=== PATIENT | female | born 1935 | race Caucasian/White ===

== ENCOUNTER 2021-09-15 17:50 | Emergency (ER) | payer MEDICARE ==
--- OUTSIDE RECORDS SUMMARY | 2021-09-15 18:02 | XMS REPORT | Continuity of Care Document ---
:1935 Author Organization [facility] t Address [address] [place] [address] Care Team Providers Name Role Phone JUNITO Primary Care Physician Unavailable Doctor Unassigned, Name Attending Clinician Unavailable Baldo LOPEZ Attending Clinician Josue LUEVANO Attending Clinician Unavailable Singer LOPEZ Attending Clinician Rod LOPEZ Attending Clinician Kenna REYES, B Attending Clinician Cindy HUANG Attending Clinician Scott LUEVANO, A Attending Clinician Unavailable Only, Db Test Attending Clinician Unavailable Angeles STUDY ASSISTANT Attending Clinician ANGELES Attending Clinician Unavailable Pob, Lab Main Attending Clinician Unavailable Mallika Olson DO Attending Clinician Mallika OLSON Attending Clinician Unavailable Skinny-Cierrao_A_AH Attending Clinician Unavailable Vaughn MCGILL Attending Clinician Unavailable Reza Werner DO Attending Clinician Unknown Attending Clinician Unavailable Frankie LUNA Attending Clinician Unavailable Cory VALENTIN S Attending Clinician Frankie Luna MD Attending Clinician Ruben GONZALES Attending Clinician Unavailable Chris LUEVANO Attending Clinician Alondra CRISTINA R Attending Clinician Howard HUANG Attending Clinician Rod LOPEZ Admitting Clinician Cindy HUANG Admitting Clinician Skinny-Mbayo_A_AH Admitting Clinician Unavailable JONY ENG Admitting Clinician Unavailable Howard HUANG Admitting Clinician Payers Payer Name Policy Type Policy Number Effective Date Expiration Date S edelmira MANAGED MEDICARE [id number] 2020 HMO GENERIC 00:00:00 [place] [place] - [id number] 2019 2020 [place] 00:00:00 00:00:00 (MEDICARE REPLACEMENT/ADVAN TAGE - HMO) [employer] [place] [id number] 2019 2020 [place]US 00:00:00 00:00:00 CLASSIC/VALUE Problems Condition Condition Condition Status Onset Resolution Last Treating Co mments Source Name Details Category Date Date Treatment Clinician Date Acute Acute Disease Active Univers hypoxemic hypoxemic 9-16 [place] of respirator [place] failure y failure 00 Medi micky due to due to Branch COVID-19 COVID-19 Pneumonia Pneumonia Disease Active Uni vers due to due to 9-15 ity of COVID-19 COVID-19 00:00: [place] virus virus 00 Medical Branch COVID-19 COVID-19 Disease Active Unive rs 9-08 ity of 00:00: [place] 00 Medical Branch Multiple Multiple Problem Active Sandhu ge complicati Complicati 7-10 Fa jordana ons due to ons Due to 00:00: Pr actic type 2 Type 2 00 e diabetes Diabetes mellitus Mellitus Hyperchole Hyperchole Problem Active V illage sterolemia sterolemia 6-11 Fa jordana 00:00: Practic 00 e Restless Restless Problem Active [place]hu ge legs Legs 6-11 Family 00:00: Practic 00 e Hypertensi Hypertensi Problem Active [facility] ill[facility] ve ve 6-11 Family disorder Disorder 00:00: Practi c 00 e Atrial Atrial Problem Active Village fibrillati Fibrillati 6-11 Fa jordana on on 00:00: Practic 00 e Congestive Congestive Problem Active [facility] ill[place] heart Heart 6-11 Family failure Failure 00:00: Practic 00 e Gastroesop Gastroesop Problem Active V illage hageal hageal 6-11 Family reflux Reflux 00:00: Practic disease Disease 00 e without without esophagiti Esophagiti s s Fall Fall Disease Active 2019- Univers 2-17 ity of 00:00: [place] 00 Medical Branch Sepsis due Sepsis due Disease Active 2019 U nivers to urinary to urinary 03-11 it y of tract tract 00:00: [place] infection infection 00 [facility] Branch Fever in Fever in Disease Active Unive rs adult adult 03-10 ity of 00:00: [place] [facility] Chronic Chronic Disease Active 2019 Univers atrial atrial 4-24 ity of fibrillati fibrillati 00:[place] Essential Essential Disease Active Uni vers hypertensi hypertensi 4-24 it y of on on 00:00: [place] 00 Medical Branch Other Other Disease Active 2019 Univers hyperlipid hyperlipid 4-24 it y of emia emia 00:00: [place] [facility] 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 00 Medica l mellitus) mellitus) Bran ch Bronchitis Bronchitis Disease Active 2019- U nivers 4-24 ity of 00:00: [place] 00 Medical Branch Acute Acute Disease Active 2019- Univers exacerbati exacerbati 4-23 it y of on of CHF on of CHF 00:00: [place] (congestiv (congestiv 00 Me dical e heart e heart Branch failure) failure) Acute Acute Disease Active 2019 Univers exacerbati exacerbati 4-23 it y of on of CHF on of CHF 00:00: [place] s (congestiv (congestiv 00 Me dical e heart e heart Branch failure) failure) Heart Heart Disease Active 2019- Univers failure, failure, 4-23 ity of acute on acute on 00:00: [place] chronic, chronic, 00 Medica l systolic systolic Branch and and diastolic diastolic Cellulitis Cellulitis Disease Active 2018 U nivers of right of right 2-29 ity of leg leg 00:00: [place] 00 Medical Branch 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) Bran ch Hypotensio Hypotensio Disease Active U nivers n n 6-30 ity of 00:00: [place] 00 Medical Branch 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 5-15 it y of is is 00:00: [place] [facility] Pseudogout Pseudogout Disease Active U nivers 5-15 ity of 00:00: [place] 00 Medical Branch Delirium Delirium Disease Active Unive rs due to due to 5-15 ity of another another 00:00: [place] medical medical 00 Medical condition condition Bran ch Chronic Chronic Disease Active Univers combined combined 5-10 ity of systolic systolic 00:00: [place] and and 00 Medical diastolic diastolic Bran ch CHF, NYHA CHF, NYHA class 3 class 3 Paroxysmal Paroxysmal Disease Active U nivers atrial atrial 5-10 ity of fibrillati fibrillati 00:[place] Medical [place] Ventricula Ventricula Disease Active U nivers r r 5-10 ity of tachycardi tachycardi 00:[place] Arthritis Arthritis Disease Active Uni vers 5-10 ity of 00:00: [place] 00 Medical Branch Pulmonary Pulmonary Disease Active Uni vers edema edema 5-10 ity of cardiac cardiac 00:00: [place] cause cause 00 Medical Branch CHF CHF Disease Active Univers (congestiv (congestiv 5-08 it y of e heart e heart 00:00: [place] failure) failure) 00 Medica l Branch Fever Fever Disease Active Univers 5-05 ity of 00:00: [place] 00 Medical Branch Allergies, Adverse Reactions, Alerts Allergy Allergy Status Severity Reaction(s) Onset Inactive Treating Comm ents Source Name Type Date Date Clinician VANCOMYC DRUG Active Rash Univers IN INGREDI 2-05 ity of 00:00: [place] 00 Medical Branch Vancomyc Propensi Active Rash Univer s in ty to 2-05 ity of adverse 00:00: [place] reaction 00 Medical s Branch LEVOFLOX DRUG Active Rash Univers ACIN INGREDI 5-14 ity of 00:00: [place] 00 Medical Branch Levoflox Propensi Active Rash Univer s acin ty to 5-14 ity of adverse 00:00: [place] reaction Medical s Branch PENICILL Drug Active Swelling Univer s INS Class 6-13 ity of 00:00: [place] 00 Medical Branch Penicill Propensi Active Swelling Univ ers ins ty to 6-13 ity of adverse 00:00: [place] reaction 00 Medical s Branch ADHESIVE DRUG Active ITCHING Univers TAPE-TERESA 816 ity of ICONES 00:00: [place] [facility] CEPHALEX DRUG Active Swelling Univer s IN INGREDI 816 ity of 00:00: [place] [facility] Adhesive Propensi Active Itching Unive rs Tape-Teresa ty to 816 ity of icones adverse 00:00: [place] reaction Medical s Branch Cephalex Propensi Active Swelling Univ ers in ty to 816 ity of adverse 00:00: [place] reaction 00 Medical s Branch Keflex Allergy Active Moderate Facial Village to to severe swelling Famil y substanc Practic e e Levoflox Allergy Active Moderate Hives Sandhu ge acin to to severe Family substanc Practic e e PENICILL Allergy Active Moderate Hives Sandhu ge INS to to severe Family substanc Practic e e Social History Social Habit Start Date Stop Date Quantity Comments Source Exposure to Not sure University of SARS-CoV-2 (event) [place] [facility] Alcohol intake 2021-03-23 2021-03-23 Current University of 00:00:00 00:00:00 non-drinker of [facility] alcohol Branch (finding) Tobacco Comment 2021-03-16 2021-03-16 Quit in 1995 Univers ity of 00:00:00 00:00:00 [place] [facility] History [facility] 2019-03-11 2019-03-11 5 University o f Financial 00:00:00 00:00:00 [place] [facility] History [facility] Food 2019-03-11 2019-03-11 1 Univers ity of Worry 00:00:00 00:00:00 [place] [facility] History [facility] Food 2019-03-11 2019-03-11 1 Univers ity of Scarcity 00:00:00 00:00:00 [place] [facility] History [facility] 2019-03-11 2019-03-11 2 University o f Transport Med 00:00:00 00:00:00 [place] Medic al Branch History SDND 2019-03-11 2019-03-11 2 University o f Transport Non-Med 00:00:00 00:00:00 [place] M edical Branch Cigarettes smoked 2017-11-10 2017-11-10 Univers ity of current (pack per 00:00:00 00:00:00 [facility] ) - Reported Branch Cigarette 2017-11-10 2017-11-10 University of pack-years 00:00:00 00:00:00 [facility] Tobacco use and 2017-11-10 2017-11-10 Never used Universit y of exposure 00:00:00 00:00:00 [facility] Sex [birth year] At [birth year] Universit y of 00:00:00 00:00:00 [facility] Smoking Status Start Date Stop Date Source Former Smoker [place] Family P kevin Medications Ordered Filled Start Stop Current Ordering Indication Dosage Frequency Signature Comments Components Source Medication Medication Date Date Medication? Clinician (SIG) Name Name HYDROcodone 2020- No 1{tbl} 1 tablet, Univers -acetaminop 04-06 Oral, ity of hen (NORCO 15:15: 14:11 ONCE, 1 Maulik as 5) 5-325 mg 00 :00 dose, On Medi micky tablet 1 Sun Branch tablet 04/06/21 at 1015, SELINA bumetanide 2020- No [id number] 1mg Take 1 Univers 1 mg tablet 03-30 [id number] tablet by ity of 00:00: 04:59 mouth [place] 00 :00 daily for Medical 30 days. Branch bumetanide 2020- No [id number] 1mg Take 1 Univers 1 mg tablet 03-30 [id number] tablet by ity of 00:00: 04:59 mouth [place] 00 :00 daily for Medical 30 days. Branch bumetanide 2020- No [id number] 1mg Take 1 Univers 1 mg tablet 03-30 [id number] tablet by ity of 00:00: 04:59 mouth [place] 00 :00 daily for Medical 30 days. Branch bumetanide 2020- No [id number] 1mg Take 1 Univers 1 mg tablet 03-30 [id number] tablet by ity of 00:00: 04:59 mouth [place] 00 :00 daily for Medical 30 days. Branch bumetanide 2020- No [id number] 1mg Take 1 Univers 1 mg tablet 03-30 [id number] tablet by ity of 00:00: 04:59 mouth [place] 00 :00 daily for Medical 30 days. Branch bumetanide 2020- No [id number] 1mg Take 1 Univers 1 mg tablet 03-30 [id number] tablet by ity of 00:00: 04:59 mouth [place] 00 :00 daily for Medical 30 days. Branch ascorbic 0 Yes 500mg Take 500 Univ ers acid, 9-21 mg by ity of vitamin C, 14:49: mouth [place] (VITAMIN C) 01 daily. Medica l 500 mg Branch tablet SITagliptin Yes 100mg Take 100 U nivers (JANUVIA) 9-21 mg by ity of 100 mg 14:49: mouth [place] tablet 01 daily. Medical Branch ascorbic Yes 500mg Take 500 Univ ers acid, 9-21 mg by ity of vitamin C, 14:49: mouth [place] (VITAMIN C) 01 daily. Medica l 500 mg Branch tablet SITagliptin Yes 100mg Take 100 U nivers (JANUVIA) 9-21 mg by ity of 100 mg 14:49: mouth [place] tablet 01 daily. Medical Branch ascorbic 0 Yes 500mg Take 500 Univ ers acid, 9-21 mg by ity of vitamin C, 14:49: mouth [place] (VITAMIN C) 01 daily. Medica l 500 mg Branch tablet SITagliptin Yes 100mg Take 100 U nivers (JANUVIA) 9-21 mg by ity of 100 mg 14:49: mouth [place] tablet 01 daily. Medical Branch ascorbic 0 Yes 500mg Take 500 Univ ers acid, 9-21 mg by ity of vitamin C, 14:49: mouth [place] (VITAMIN C) 01 daily. Medica l 500 mg Branch tablet SITagliptin 0 Yes 100mg Take 100 U nivers (JANUVIA) 9-21 mg by ity of 100 mg 14:49: mouth [place] tablet 01 daily. Medical Branch ascorbic 0 Yes 500mg Take 500 Univ ers acid, 9-21 mg by ity of vitamin C, 14:49: mouth [place] (VITAMIN C) 01 daily. Medica l 500 mg Branch tablet SITagliptin 0 Yes 100mg Take 100 U nivers (JANUVIA) 9-21 mg by ity of 100 mg 14:49: mouth [place] tablet 01 daily. Medical Branch ascorbic Yes 500mg Take 500 Univ ers acid, 9-21 mg by ity of vitamin C, 14:49: mouth [place] (VITAMIN C) 01 daily. Medica l 500 mg Branch tablet SITagliptin Yes 100mg Take 100 U nivers (JANUVIA) 9-21 mg by ity of 100 mg 14:49: mouth [place] tablet 01 daily. Medical Branch bumetanide Yes 1mg 1 mg, Univer s (BUMEX) 03-29 Oral, ity of tablet 1 mg 14:00: DAILY, [place] 00 [place] dose Medical on [facility] 03/29/21 at 0900, Until Discontinu ed, Routine bumetanide Yes 1mg 1 mg, Univer s (BUMEX) 03-29 Oral, ity of tablet 1 mg 14:00: DAILY, [facility] First [facility] Medical on [facility] 03/29/21 at 0900, Until Discontinu ed, Routine furosemide 2020- No 40mg Take 40 mg Univers (LASIX) 40 03-29 by mouth ity of mg tablet 12:56: 00:00 daily. [place] 46 :00 [facility] Branch amLODIPine 2020- No 5mg Take 5 mg U nivers 5 mg tablet 03-29 by mouth ity of 12:56: 00:00 daily. [place] 46 :00 [facility] Branch furosemide 2020- No 40mg Take 40 mg Univers (LASIX) 40 03-29 by mouth ity of mg tablet 12:56: 00:00 daily. [place] 46 :00 [facility] Branch amLODIPine 2020- No 5mg Take 5 mg U nivers 5 mg tablet 03-29 by mouth ity of 12:56: 00:00 daily. [place] 46 :00 [facility] Branch albuterol-i 2020- No [id number] 1{puff} Inhale 1 Univers pratropium 03-29 10- [id number] Puff every ity of 20-100 00:00: 04:59 6 (six) [place] mcg/actuati 00 :00 hours for Med ical on inhaler 30 days. Branc h benzonatate 2020- No [id number] 100mg Take 1 Univers 100 mg 9-21 - [id number] capsule by ity of capsule 00:00: 04:59 mouth 3 [place] 00 :00 (three) Medical times Branch daily as needed for Cough for up to 30 days. albuterol-i 2020- No [id number] 1{puff} Inhale 1 Univers pratropium 9-21 - [id number] Puff every ity of 20-100 00:00: 04:59 6 (six) [place] mcg/actuati 00 :00 hours for Med ical on inhaler 30 days. Branc h benzonatate 2020- No [id number] 100mg Take 1 Univers 100 mg -04-29 [id number] capsule by ity of capsule 00:00: 04:59 mouth 3 [place] 00 :00 (three) Medical times Branch daily as needed for Cough for up to 30 days. albuterol-i 2020- No [id number] 1{puff} Inhale 1 Univers pratropium 9-21 - [id number] Puff every ity of 20-100 00:00: 04:59 6 (six) [place] mcg/actuati 00 :00 hours for Med ical on inhaler 30 days. Branc h benzonatate 2020- No [id number] 100mg Take 1 Univers 100 mg -04-29 [id number] capsule by ity of capsule 00:00: 04:59 mouth 3 [place] 00 :00 (three) Medical times Branch daily as needed for Cough for up to 30 days. albuterol-i 2020- No [id number] 1{puff} Inhale 1 Univers pratropium 9-21 - [id number] Puff every ity of 20-100 00:00: 04:59 6 (six) [place] mcg/actuati 00 :00 hours for Med ical on inhaler 30 days. Branc h benzonatate 2020- No [id number] 100mg Take 1 Univers 100 mg 9-21 - [id number] capsule by ity of capsule 00:00: 04:59 mouth 3 [place] 00 :00 (three) Medical times Branch daily as needed for Cough for up to 30 days. albuterol-i 2020- No [id number] 1{puff} Inhale 1 Univers pratropium 03-29 [id number] Puff every ity of 20-100 00:00: 04:59 6 (six) [place] mcg/actuati 00 :00 hours for Med ical on inhaler 30 days. Branc h benzonatate 2020- No [id number] 100mg Take 1 Univers 100 mg 03-29 [id number] capsule by ity of capsule 00:00: 04:59 mouth 3 [place] 00 :00 (three) Medical times Branch daily as needed for Cough for up to 30 days. albuterol-i 2020- No [id number] 1{puff} Inhale 1 Univers pratropium 03-29 [id number] Puff every ity of 20-100 00:00: 04:59 6 (six) [place] mcg/actuati 00 :00 hours for Med ical on inhaler 30 days. Branc h benzonatate 2020- No [id number] 100mg Take 1 Univers 100 mg 03-29 [id number] capsule by ity of capsule 00:00: 04:59 mouth 3 [place] 00 :00 (three) Medical times Branch daily as needed for Cough for up to 30 days. diphenhydrA 2020- No [id number] 25mg Take 1 Univers MINE 25 mg 03-29 [id number] tablet by ity of tablet 00:00: 04:59 mouth [place] 00 :00 every 4 Medical (four) Branch hours as needed for Itching for up to 7 days. diphenhydrA 2020- No [id number] 25mg Take 1 Univers MINE 25 mg 03-29 [id number] tablet by ity of tablet 00:00: 04:59 mouth [place] 00 :00 every 4 Medical (four) Branch hours as needed for Itching for up to 7 days. diphenhydrA 2020- No [id number] 25mg Take 1 Univers MINE 25 mg 03-29 [id number] tablet by ity of tablet 00:00: 04:59 mouth [place] 00 :00 every 4 Medical (four) Branch hours as needed for Itching for up to 7 days. diphenhydrA 2020- No [id number] 25mg Take 1 Univers MINE 25 mg 03-29 [id number] tablet by ity of tablet 00:00: 04:59 mouth [place] 00 :00 every 4 Medical (four) Branch hours as needed for Itching for up to 7 days. fludrocorti 2020- No .2mg 0.2 mg, Un adali sone 03-28 Oral, ONCE ity of (FLORINEF) 16:15: 15:45 NOW, 1 [place] tablet 0.2 00 :00 dose, On Medic al mg [facility] 03/28/21 at 1115, Routine fludrocorti 2020- No .2mg 0.2 mg, Un adali sone 03-28 Oral, ONCE ity of (FLORINEF) 16:15: 15:45 NOW, 1 [place] tablet 0.2 00 :00 dose, On Medic al mg [facility] 03/28/21 at 1115, Routine sodium 2020- No 1g 1 g, Oral, Univ ers chloride 03-28 QID, 4 ity of tablet 1 g 15:30: 12:54 doses, [place] 00 :00 First dose Medical on [facility] 03/28/21 at 1030, Last dose on [facility] 03/28/21 at 1999, Routine sodium 2020- No 1g 1 g, Oral, Univ ers chloride 03-28 QID, 4 ity of tablet 1 g 15:30: 12:54 doses, [place] 00 :00 First dose Medical on [facility] 03/28/21 at 1030, Last dose on [facility] 03/28/21 at 1999, Routine NaCl 0.9% No 500mL at 50 Unive rs (NS) IV 03-27 mL/hr, IV ity of infusion 17:30: 16:47 Infusion, [place]ik as 500 mL 00 :00 ONCE, 1 Medical dose, On Branch [place] 03/27/21 at 1230, Routine NaCl 0.9% 2020- No 500mL at 50 Unive rs (NS) IV 03-27 09-19 mL/hr, IV ity of infusion 17:30: 16:47 Infusion, [place]ulik as 500 mL 00 :00 ONCE, 1 Medical dose, On [facility] 03/27/21 at 1230, Routine albuterol-i Yes 1{puff} 1 Puff, Univers pratropium 9-17 Inhalation ity of (COMBIVENT 17:00: , Q6H, [place] RESPIMAT) 00 First dose Medi micky 20-100 on [place] mcg/actuati 03/25/21 at on inhaler 1200, 1 Puff Until Discontinu ed, Routine
Is this order for a patient with suspected or confirmed COVID-19 infection? Yes albuterol-i 2020-0 Yes 1{puff} 1 Puff, Univers pratropium 9-17 Inhalation ity of (COMBIVENT 17:00: , Q6H, [place] RESPIMAT) 00 First dose Medi micky 20-100 on [place] mcg/actuati 03/25/21 at on inhaler 1200, 1 Puff Until Discontinu ed, Routine
Is this order for a patient with suspected or confirmed COVID-19 infection? Yes codeine-gua 0 Yes 10mL 10 mL, Univ ers ifenesin -17 Oral, ity of (ROBITUSSIN 15:38: Q6HPRN, Maulik as AC) 10-100 24 Starting Medic al mg/5 mL on [place] oral 03/25/21 at solution 10 1038, mL Until Discontinu ed, Routine, Cough codeine-gua 2020-0 Yes 10mL 10 mL, Univ ers ifenesin 9-17 Oral, ity of (ROBITUSSIN 15:38: Q6HPRN, Maulik as AC) 10-100 24 Starting Medic al mg/5 mL on [place] oral 03/25/21 at solution 10 1038, mL Until Discontinu ed, Routine, Cough digoxin 2020-0 Yes 125ug 125 mcg, Unive rs (LANOXIN) 03-25 Oral, ity of tablet 125 14:00: QMON/WEDS/ [place] mcg Sun, First Medical dose on Branch Sun03/25/21 at 0900, Until Discontinu ed, Routine digoxin 2020-0 Yes 125ug 125 mcg, Unive rs (LANOXIN) 03-25 Oral, ity of tablet 125 14:00: QM// [place] mcg Sun, First Medical dose on Branch Sun03/25/21 at 0900, Until Discontinu ed, Routine diphenhydrA 2020-0 Yes 25mg 25 mg, Univ ers MINE 03-24 Oral, ity of (BENADRYL) 21:00: Q4HPRN, [place] tablet 25 12 Starting Medica l mg on [facility] 03/24/21 at 1600, Until Discontinu ed, Routine, Itching diphenhydrA 2020-0 Yes 25mg 25 mg, Univ ers MINE 03-24 Oral, ity of (BENADRYL) 21:00: Q4HPRN, [place] tablet 25 12 Starting Medica l mg on [facility] 03/24/21 at 1600, Until Discontinu ed, Routine, Itching SITagliptin 2020-0 Yes 100mg 100 mg, Un adali (JANUVIA) 03-24 Oral, ity of tablet 100 14:00: DAILY, [place] mg 00 First dose Medical on [facility] 03/24/21 at 0900, Until Discontinu ed, Routine omeprazole 2020-0 Yes 40mg 40 mg, Unive rs (PRILOSEC) 03-24 Oral, ity of capsule 40 14:00: DAILY, [place] mg 00 First dose Medical on [facility] 03/24/21 at 0900, Until Discontinu ed ascorbic 2020-0 Yes 500mg 500 mg, Unive rs acid 03-24 Oral, ity of (vitamin C) 14:00: DAILY, [place] (VITAMIN C) 00 First dose Me dical tablet 500 on [facility] mg 03/24/21 at 0900, Until Discontinu ed, Routine SITagliptin 2020-0 Yes 100mg 100 mg, Un adali (JANUVIA) 03-24 Oral, ity of tablet 100 14:00: DAILY, [place] mg 00 First dose Medical on [facility] 03/24/21 at 0900, Until Discontinu ed, Routine omeprazole 2020-0 Yes 40mg 40 mg, Unive rs (PRILOSEC) 9-16 Oral, ity of capsule 40 14:00: DAILY, [place] mg 00 First dose Medical on [facility] 03/24/21 at 0900, Until Discontinu ed ascorbic 2020-0 Yes 500mg 500 mg, Unive rs acid 03-24 Oral, ity of (vitamin C) 14:00: [place]ILY, [place] (VITAMIN C) 00 First dose Me dical tablet 500 on [facility] 03/24/21 at 0900, Until Discontinu ed, Routine amLODIPine 2020- No 5mg 5 mg, Unive rs (NORVASC) 03-24 Oral, ity of tablet 5 mg 14:00: 15:14 DAILY, [place] as 00 :12 First dose Medical on [facility] 03/24/21 at 0900, Until Discontinu ed, Routine amLODIPine 2020- No 5mg 5 mg, Unive rs (NORVASC) 03-24 Oral, ity of tablet 5 mg 14:00: 15:14 DAILY, [place] as 00 :12 First dose Medical on [facility] 03/24/21 at 0900, Until Discontinu ed, Routine gabapentin 0 Yes 300mg 300 mg, Uni vers (NEURONTIN) 9-16 Oral, QHS, it y of capsule 300 02:00: First dose [place] mg 00 on [facility] 03/23/21 at Branch 2100, Until Discontinu ed, Routine atorvastati 0 Yes 40mg 40 mg, Univ ers n (LIPITOR) 9-16 Oral, QHS, it y of tablet 40 02:00: First dose [place] mg 00 on [facility] 03/23/21 at Branch 2100, Until Discontinu ed, Routine gabapentin 2020-0 Yes 300mg 300 mg, Uni vers (NEURONTIN) 9-16 Oral, QHS, it y of capsule 300 02:00: First dose [place] mg 00 on [facility] 03/23/21 at Branch 2100, Until Discontinu ed, Routine atorvastati 2020-0 Yes 40mg 40 mg, Univ ers n (LIPITOR) 9-16 Oral, QHS, it y of tablet 40 02:00: First dose [place] mg 00 on [facility] 03/23/21 at Branch 2100, Until Discontinu ed, Routine pramipexole 2021-0 Yes 1mg 1 mg, Unive rs (MIRAPEX) 9-16 Oral, TID, ity of tablet 1 mg 01:00: First dose on Sun [facility] 03/23/21 at [place] [id number], Until Discontinu ed
Facu lty member approving Restricted medication : JAD GAVIN apixaban 2021-0 Yes 5mg 5 mg, Univers (ELIQUIS) 9-16 Oral, BID, ity of tablet 5 mg 01:00: First dose on Sun [facility] 03/23/21 at [place] 2000, Until Discontinu ed, Routine pramipexole 1-0 Yes 1mg 1 mg, Unive rs (MIRAPEX) 9-16 Oral, TID, ity of tablet 1 mg 01:00: First dose on Sun03/23/21 at [place] 1999, Until Discontinu ed
Facu lty member approving Restricted medication : JAD GAVIN apixaban 1-0 Yes 5mg 5 mg, Univers (ELIQUIS) 9-16 Oral, BID, ity of tablet 5 mg 01:00: First dose on Sun [facility] 03/23/21 at [place] 1999, Until Discontinu ed, Routine benzonatate 2021-0 Yes 100mg 100 mg, Un adali (TESSALON 9-15 Oral, Q6H, ity of PERLES) 23:00: [place] capsule 100 00 on Sun Medica l mg 03/23/21 at Branch 1800, Until Discontinu ed, Routine benzonatate 2021-0 Yes 100mg 100 mg, Un adali (TESSALON 9-15 Oral, Q6H, ity of PERLES) 23:00: First dose [place] capsule 100 00 on [place] Medica l mg 03/23/21 at Branch 1800, Until Discontinu ed, Routine carvediloL 2021-0 Yes 25mg 25 mg, Unive rs (COREG) 9-15 Oral, BID ity of tablet 25 22:00: MEALS, [place] mg 00 First dose Medical on [place] 03/23/21 at 1700, Until Discontinu ed, Routine carvediloL 2021-0 Yes 25mg 25 mg, Unive rs (COREG) 9-15 Oral, BID ity of tablet 25 22:00: MEALS, [place] mg 00 First dose Medical on Sun Branch 03/23/21 at 1700, Until Discontinu ed, Routine Sliding Yes Subcutaneo Univ ers Scale 9-15 us, AC+HS, ity of Insulin-Reg 21:30: First dose [place] ular + Fsbg 00 on Sun Medica l Testing 03/23/21 at Branch 1630, Until Discontinu ed, Routine Sliding Yes Subcutaneo Univ ers Scale 9-15 us, AC+HS, ity of Insulin-Reg 21:30: First dose [place] ular + Fsbg 00 on Sun Medica l Testing 03/23/21 at Branch 1630, Until Discontinu ed, Routine glucagon 0 Yes 1mg 1 mg, Univers (GLUCAGEN 9-15 Intramuscu ity of DIAGNOSTIC 19:48: [place], [place] KIT) 01 Starting Medical injection 1 on Sun Branch mg 03/23/21 at 1448, Until Discontinu ed, SELINA, Blood Glucose < or = 70 mg/dL and patient is unable to swallow or has mental changes. dextrose 50 0 Yes 25mL 25 mL, Univ ers % in water 9-15 Slow IV ity of (D50W) 19:48: Push, PRN, [place] injection 01 Starting Medica l 25 mL on Sun Branch 03/23/21 at 1448, Until Discontinu ed, SELINA, Blood Glucose < or = 70 mg/dL and patient is unable to swallow or has mental status changes. glucagon Yes 1mg 1 mg, Univers (GLUCAGEN 9-15 Intramuscu ity of DIAGNOSTIC 19:48: [place], [place] KIT) 01 Starting Medical injection 1 on Sun Branch mg 03/23/21 at 1448, Until Discontinu ed, SELINA, Blood Glucose < or = 70 mg/dL and patient is unable to swallow or has mental changes. dextrose 50 0 Yes 25mL 25 mL, Univ ers % in water 9-15 Slow IV ity of (D50W) 19:48: Push, PRN, [place] injection 01 Starting Medica l 25 mL on Wed Branch 03/23/21 at 1448, Until Discontinu ed, SELINA, Blood Glucose < or = 70 mg/dL and patient is unable to swallow or has mental status changes. iopamidol 2020- No [id number] 100mL 100 mL, Univers (ISOVUE 03-23 [id number] Intravenou it y of 370-500 mL) 17:00: 15:48 s, ONCE, 1 [place] injection 00 :00 dose, On Medica l 100 mL Wed Branch 03/23/21 at 1200, Routine iopamidol 2020- No [id number] 100mL 100 mL, Univers (ISOVUE 03-23 [id number] Intravenou it y of 370-500 mL) 17:00: 15:48 s, ONCE, 1 [place] injection 00 :00 dose, On Medica l 100 mL Wed Branch 03/23/21 at 1200, Routine bumetanide 2020- No 1.25mg 1.25 mg, Univers (BUMEX) 03-23 Slow IV ity of injection 16:30: 15:14 Push, [place] 1.25 mg 00 :12 Q24H, Medical First dose Branch on 03/23/21 at 1130, Until Discontinu ed, Routine bumetanide 2020- No 1.25mg 1.25 mg, Univers (BUMEX) 03-23 Slow IV ity of injection 16:30: 15:14 Push, [place] 1.25 mg 00 :12 Q24H, Medical First dose Branch on 03/23/21 at 1130, Until Discontinu ed, Routine insulin 2020- No 16U inject 16 Univ ers degludec 03-2315 Units ity of (TRESIBA 15:06: 00:00 under the [place] as FLEXTOUCH 03 :00 skin. Medical U-100) 100 Branch unit/mL (3 mL) InPn insulin 2020- No 16U inject 16 Univ ers degludec 03-23-15 Units ity of (TRESIBA 15:06: 00:00 under the [place] as FLEXTOUCH 03 :00 skin. Medical U-100) 100 Branch unit/mL (3 mL) InPn digoxin Yes 125ug 125 mcg, Unive rs (LANOXIN) 9-10 Oral, ity of tablet 125 14:00: QMON/WEDS/ [place] mcg Sun, First Medical dose on Branch Sun03/18/21 at 0900, Until Discontinu ed, Routine digoxin Yes 125ug 125 mcg, Unive rs (LANOXIN) 03-18 Oral, ity of tablet 125 14:00: QMON/WEDS/ [place] mcg Sun, First Medical dose on Branch Sun03/18/21 at 0900, Until Discontinu ed, Routine dexamethaso 2020- No 6mg 6 mg, IV U nivers ne 03-18 Piggyback, ity of (DECADRON 14:00: 13:59 DAILY, 5 [place] PHOSPHATE) 00 :00 doses, Medical 6 mg in First dose Branch NaCl 0.9% (after (NS) 50 mL last piggyback modificati on) on Sun03/18/21 at 0900, Last dose on Sun03/22/21 at 0900, Administer over 20 Minutes, 50 mL dexamethaso 2020- No 6mg 6 mg, IV U nivers ne 03-18 Piggyback, ity of (DECADRON 14:00: 13:59 DAILY, 5 [place] PHOSPHATE) 00 :00 doses, Medical 6 mg in First dose Branch NaCl 0.9% (after (NS) 50 mL last piggyback modificati on) on Sun03/18/21 at 0900, Last dose on Sun03/22/21 at 0900, Administer over 20 Minutes, 50 mL insulin Yes .3U/kg/ 29 Units Uni vers glargine 9- d (rounded ity of (LANTUS 02:00: from 28.8 [place] U-100) 00 Units = Medical injection 0.3 Branch 29 Units Units/kg/d ay ?96 kg), Subcutaneo us, Q, First dose (after last modificati on) on Sun03/17/21 at 2100, Until Discontinu ed, Routine insulin 0 Yes .3U/kg/ 29 Units Uni vers glargine 9- d (rounded ity of (LANTUS 02:00: from 28.8 [place] U-100) 00 Units = Medical injection 0.3 Branch 29 Units Units/kg/d ay ?96 kg), Subcutaneo us, QHS, First dose (after last modificati on) on [place] 03/17/21 at 2100, Until Discontinu ed, Routine ascorbic 0 Yes 500mg Take 500 Univ ers acid, 9-10 mg by ity of vitamin C, 00:03: mouth [place] (VITAMIN C) 37 daily. Medica l 500 mg Branch tablet insulin 0 Yes 16U inject 16 Unive rs degludec 9-10 Units ity of (TRESIBA 00:03: [place] FLEXTOUCH 37 skin. Medical U-100) 100 Branch unit/mL (3 mL) InPn SITagliptin Yes 100mg Take 100 U nivers (JANUVIA) 9-10 mg by ity of 100 mg 00:03: mouth [place] tablet 37 daily. Medical Branch furosemide 0 Yes 40mg Take 40 mg U nivers (LASIX) 40 9-10 by mouth ity o f mg tablet 00:03: daily. [place] [address] Medical Branch amLODIPine 0 Yes 5mg Take 5 mg Un adali 5 mg tablet 9-10 by mouth ity of 00:03: daily. [place] [address] Medical Branch ascorbic 0 Yes 500mg Take 500 Univ ers acid, 9-10 mg by ity of vitamin C, 00:03: mouth [place] (VITAMIN C) 37 daily. Medica l 500 mg Branch tablet insulin 0 Yes 16U inject 16 Unive rs degludec 9-10 Units ity of (TRESIBA 00:03: [place] FLEXTOUCH 37 skin. Medical U-100) 100 Branch unit/mL (3 mL) InPn SITagliptin Yes 100mg Take 100 U nivers (JANUVIA) 9-10 mg by ity of 100 mg 00:03: mouth [place] tablet 37 daily. Medical Branch furosemide 0 Yes 40mg Take 40 mg U nivers (LASIX) 40 9-10 by mouth ity o f mg tablet 00:03: daily. [place] [address] Medical Branch amLODIPine 2020-0 Yes 5mg Take 5 mg Un adali 5 mg tablet 9-10 by mouth ity of 00:03: daily. [place] [address] Medical Branch ascorbic 2021-0 Yes 500mg Take 500 Univ ers acid, 9-10 mg by ity of vitamin C, 00:03: mouth [place] (VITAMIN C) 37 daily. Medica l 500 mg Branch tablet insulin 0 Yes 16U inject 16 Unive rs degludec 9-10 Units ity of (TRESIBA 00:03: [facility] skin. Medical U-100) 100 Branch unit/mL (3 mL) InPn SITagliptin Yes 100mg Take 100 U nivers (JANUVIA) 9-10 mg by ity of 100 mg 00:03: mouth [place] tablet 37 daily. Medical Branch furosemide Yes 40mg Take 40 mg U nivers (LASIX) 40 9-10 by mouth ity o f mg tablet 00:03: daily. [place] [address] Medical Branch amLODIPine Yes 5mg Take 5 mg Un adali 5 mg tablet 9-10 by mouth ity of 00:03: daily. [place] [address] Medical Branch ascorbic Yes 500mg Take 500 Univ ers acid, 9-10 mg by ity of vitamin C, 00:03: mouth [place] (VITAMIN C) 37 daily. Medica l 500 mg Branch tablet insulin Yes 16U inject 16 Unive rs degludec 9-10 Units ity of (TRESIBA 00:03: [facility] FLEXT[facility]CH 37 skin. Medical U-100) 100 Branch unit/mL (3 mL) InPn SITagliptin Yes 100mg Take 100 U nivers (JANUVIA) 9-10 mg by ity of 100 mg 00:03: mouth [place] tablet 37 daily. Medical Branch furosemide Yes 40mg Take 40 mg U nivers (LASIX) 40 9-10 by mouth ity o f mg tablet 00:03: daily. [place] [address] Medical Branch amLODIPine 0 Yes 5mg Take 5 mg Un adali 5 mg tablet 9-10 by mouth ity of 00:03: daily. [place] [address] Medical Branch sulfur 202- No [id number] 5mL 5 mL, Univ ers hexafluorid 03-17 Intravenou i ty of e microsphr 21:45: 19:50 s, ONCE, 1 [place] (LUMASON) 00 :00 dose, [place] Medic al injection 5 03/17/[address] [facility] mL 1645, Routine
team member approving Restricted medication : ZEKE ARELLANO sulfur 2020- No [id number] 5mL 5 mL, [facility] ers hexafluorid 03-17 Intravenou i ty of e microsphr 21:45: 19:50 s, ONCE, 1 [place] (LUMASON) 00 :00 dose, [place] Medic al injection 5 03/17/[address] [facility] mL 1645, Routine
team member approving Restricted medication : ZEKE ARELLANO remdesivir 2020- No 100mg 100 mg, IV Univers 100 mg in 03-17 Infusion, ity of NaCl 0.9% 21:00: 20:59 DAILY AT [facility] as (NS) 100 mL 00 :00 1600, 4 Medic al MINI-BAG doses, Branch First dose on [place] 03/17/21 at 1600, Last dose on Sun03/20/21 at 1600, Administer over 60 Minutes, 100 mL
Is the patient mechanical ly ventilated ? NO
I s the patient requiring supplement al oxygen? YES remdesivir 2020- No 100mg 100 mg, IV Univers 100 mg in 03-17 Infusion, ity of NaCl 0.9% 21:00: 20:59 DAILY AT [facility] as (NS) 100 mL 00 :00 1600, 4 Medic al MINI-BAG doses, Branch First dose on [place] 03/17/21 at 1600, Last dose on 03/20/21 at 1600, Administer over 60 Minutes, 100 mL
Is the patient mechanical ly ventilated ? NO
I s the patient requiring supplement al oxygen? YES benzonatate Yes 100mg 100 mg, Un adali (TESSALON 9-09 Oral, Q6H, ity of PERLES) 17:00: [place] capsule 100 00 (after Medica l mg last Branch modificati on) on [place] 03/17/21 at 1200, Until Discontinu ed, Routine benzonatate Yes 100mg 100 mg, Un adali (TESSALON 9-09 Oral, Q6H, ity of PERLES) 17:00: First [place] capsule 100 00 (after Medica l mg last Branch modificati on) on [place] 03/17/21 at 1200, Until Discontinu ed, Routine omeprazole 2020-0 Yes 40mg 40 mg, Unive rs (PRILOSEC) 03-17 Oral, ity of capsule 40 14:00: DAILY, [place] mg 00 First dose Medical on [facility] Branch 03/17/21 at 0900, Until Discontinu ed, Routine amLODIPine 0 Yes 5mg 5 mg, Univer s (NORVASC) 03-17 Oral, ity of tablet 5 mg 14:00: DAILY, [place] 00 First dose Medical on [facility] Branch 03/17/21 at 0900, Until Discontinu ed, Routine omeprazole Yes 40mg 40 mg, Unive rs (PRILOSEC) 03-17 Oral, ity of capsule 40 14:00: DAILY, [place] mg 00 First dose Medical on [facility] Branch 03/17/21 at 0900, Until Discontinu ed, Routine amLODIPine Yes 5mg 5 mg, Univer s (NORVASC) 03-17 Oral, ity of tablet 5 mg 14:00: DAILY, [place] 00 First dose Medical on [facility] Branch 03/17/21 at 0900, Until Discontinu ed, Routine Sliding Yes Subcutaneo Univ ers Scale 03-17 us, TID ity of Insulin - 02:00: MEALS+HS, [place] Lispro 00 First dose Medical (HumaLOG) + on Sun Branch Fsbg 03/16/21 at Testing 2100, Until Discontinu ed, Routine gabapentin 0 Yes 300mg 300 mg, Uni vers (NEURONTIN) 03-17 Oral, QHS, it y of capsule 300 02:00: First dose [place] mg 00 on Sun Medical 03/16/21 at Branch 2100, Until Discontinu ed, Routine atorvastati 2020-0 Yes 40mg 40 mg, Univ ers n (LIPITOR) 03-17 Oral, QHS, it y of tablet 40 02:00: First [place] mg 00 on Sun Medical 03/16/21 at Branch 2100, Until Discontinu ed, Routine Sliding 2020-0 Yes Subcutaneo Univ ers Scale 03-17 us, TID ity of Insulin - 02:00: MEALS+HS, [place] Lispro 00 First dose Medical (HumaLOG) + on Sun Fsbg 03/16/21 at Testing 2100, Until Discontinu ed, Routine gabapentin Yes 300mg 300 mg, Uni vers (NEURONTIN) 03-17 Oral, QHS, it y of capsule 300 02:00: First dose [place] mg 00 on Sun Medical 03/16/21 at Branch 2100, Until Discontinu ed, Routine atorvastati Yes 40mg 40 mg, Univ ers n (LIPITOR) 03-17 Oral, QHS, it y of tablet 40 02:00: First [place] mg 00 on Sun Medical 03/16/21 at Branch 2100, Until Discontinu ed, Routine insulin 202- No .25U/kg 24 Units Un adali glargine 03-17 /d (0.25 ity of (LANTUS 02:00: 07:06 Units/kg/d [place] U-100) 00 :55 ay ?96 Medical injection kg), Branch 24 Units Subcutaneo us, QHS, First dose on Sun03/16/21 at 2100, Until Discontinu ed, Routine insulin 2020- No .25U/kg 24 Units Un adali glargine 03-17 /d (0.25 ity of (LANTUS 02:00: 07:06 Units/kg/d [place] U-100) 00 :55 ay ?96 Medical injection kg), Branch 24 Units Subcutaneo us, QHS, First dose on Sun03/16/21 at 2100, Until Discontinu ed, Routine apixaban Yes 5mg 5 mg, Univers (ELIQUIS) 03-17 Oral, BID, ity of tablet 5 mg 01:00: First dose [place] 00 on Sun [facility] 03/16/21 at Branch 2000, Until Discontinu ed, Routine apixaban 0 Yes 5mg 5 mg, Univers (ELIQUIS) 03-17 Oral, BID, ity of tablet 5 mg 01:00: First dose [place] 00 on Sun Medical 03/16/21 at Branch 2000, Until Discontinu ed, Routine furosemide Yes 40mg 40 mg, Unive rs (LASIX) 03-17 Oral, ity of tablet 40 00:00: DAILY, [place] mg 00 First dose Medical (after Branch last modificati on) on Sun03/16/21 at 1900, Until Discontinu ed, Routine carvediloL 0 Yes 25mg 25 mg, Unive rs (COREG) 03-17 Oral, BID ity of tablet 25 00:00: MEALS, [place] mg 00 First dose Medical (after Branch last modificati on) on Sun03/16/21 at 1900, Until Discontinu ed, Routine furosemide Yes 40mg 40 mg, Unive rs (LASIX) 03-17 Oral, ity of tablet 40 00:00: DAILY, [place] mg 00 First dose Medical (after Branch last modificati on) on Sun03/16/21 at 1900, Until Discontinu ed, Routine carvediloL 0 Yes 25mg 25 mg, Unive rs (COREG) 03-17 Oral, BID ity of tablet 25 00:00: MEALS, [place] mg 00 First dose Medical (after Branch last modificati on) on Sun03/16/21 at 1900, Until Discontinu ed, Routine benzonatate 2020- No [id number] 100mg Take 1 Univers 100 mg 9-09 10-10 capsule by ity of capsule 00:00: 04:59 mouth [place] 00 :00 every 6 Medical (six) Branch hours for 30 days. benzonatate 2020- No [id number] 100mg Take 1 Univers 100 mg 9-09 10-10 capsule by ity of capsule 00:00: 04:59 mouth [place] 00 :00 every 6 Medical (six) Branch hours for 30 days. benzonatate 2020- No [id number] 100mg Take 1 Univers 100 mg 9-09 10-10 capsule by ity of capsule 00:00: 04:59 mouth [place] 00 :00 every 6 Medical (six) Branch hours for 30 days. benzonatate 2020- No [id number] 100mg Take 1 Univers 100 mg 9-09 10-10 capsule by ity of capsule 00:00: 04:59 mouth [place] 00 :00 every 6 Medical (six) Branch hours for 30 days. benzonatate 2020- No [id number] 100mg Take 1 Univers 100 mg 9-09 10-10 capsule by ity of capsule 00:00: 04:59 mouth [place] 00 :00 every 6 Medical (six) Branch hours for 30 days. benzonatate 2020-0 2020- No [id number] 100mg Take 1 Univers 100 mg 9-09 10-10 capsule by ity of capsule 00:00: 04:59 mouth [place] 00 :00 every 6 Medical (six) Branch hours for 30 days. benzonatate 2020-0 2021- No [id number] 100mg Take 1 Univers 100 mg 9-09 10-10 capsule by ity of capsule 00:00: 04:59 mouth [place] 00 :00 every 6 Medical (six) Branch hours for 30 days. benzonatate 2020-0 2020- No [id number] 100mg Take 1 Univers 100 mg 9-09 10-10 capsule by ity of capsule 00:00: 04:59 mouth [place] 00 :00 every 6 Medical (six) Branch hours for 30 days. benzonatate 2020-2020- No [id number] 100mg Take 1 Univers 100 mg 9- 10-10 capsule by ity of capsule 00:00: 04:59 mouth [place] 00 :00 every 6 Medical (six) Branch hours for 30 days. glucagon Yes 1mg 1 mg, Univers (GLUCAGEN 03-16 Intramuscu ity of DIAGNOSTIC 23:51: [place], PRN, [place] KIT) 06 Starting Medical injection 1 Sun03/16/21 Br anch mg at 1851, Until Discontinu ed, SELINA, Blood Glucose < or = 70 mg/dL and patient is unable to swallow or has mental changes. dextrose 50 Yes 25mL 25 mL, Univ ers % in water 03-16 Slow IV ity of (D50W) 23:51: Push, PRN, [place] injection 06 Starting Medica l 25 mL Sun03/16/21 Branch at 1851, Until Discontinu ed, SELINA, Blood Glucose < or = 70 mg/dL and patient is unable to swallow or has mental status changes. glucagon Yes 1mg 1 mg, Univers (GLUCAGEN 03-16 Intramuscu ity of DIAGNOSTIC 23:51: [place], PRN, [place] KIT) 06 Starting Medical injection 1 Sun03/16/21 Br anch mg at 1851, Until Discontinu ed, SELINA, Blood Glucose < or = 70 mg/dL and patient is unable to swallow or has mental changes. dextrose 50 0 Yes 25mL 25 mL, Univ ers % in water 03-16 Slow IV ity of (D50W) 23:51: Push, PRN, [place] injection 06 Starting Medica l 25 mL Sun03/16/21 Branch at 1851, Until Discontinu ed, SELINA, Blood Glucose < or = 70 mg/dL and patient is unable to swallow or has mental status changes. ipratropium Yes 2{puff} 2 Puff, Univers (ATROVENT 03-16 Inhalation ity of HFA) 23:15: , Q6H, [place] inhaler 2 00 First dose Medi micky Puff on Sun Branch 03/16/21 at 1815, Until Discontinu ed, Routine
Is this order for a patient with suspected or confirmed COVID-19 infection? Yes albuterol Yes 2{puff} 2 Puff, Un adali (VENTOLIN) 03-16 Inhalation ity of inhaler 2 23:15: , Q6H, [place] Puff 00 First dose Medical on Sun Branch 03/16/21 at 1815, Until Discontinu ed, Routine ipratropium Yes 2{puff} 2 Puff, Univers (ATROVENT 03-16 Inhalation ity of HFA) 23:15: , Q6H, [place] inhaler 2 00 First dose Medi micky Puff on Sun Branch 03/16/21 at 1815, Until Discontinu ed, Routine
Is this order for a patient with suspected or confirmed COVID-19 infection? Yes albuterol Yes 2{puff} 2 Puff, Un ad[place] (VENTOLIN) 03-16 Inhalation ity of inhaler 2 23:15: , Q6H, [place] Puff 00 First dose Medical on Sun Branch 03/16/21 at 1815, Until Discontinu ed, Routine benzonatate 2020- No 100mg 100 mg, U nivers (TESSALON 03-16 09-09 Oral, ity of PERLES) 23:13: 16:35 Q6HPRN, [place] capsule 100 02 :04 Starting Medi micky mg Sun03/16/21 Branch at 1813, Until [place] 03/17/21 at 1135, Routine, Cough benzonatate 2020-0 2020- No 100mg 100 mg, U nivers (TESSALON 03-16 Oral, ity of PERLES) 23:13: 16:35 Q6HPRN, [place] capsule 100 02 :04 Starting Medi micky mg Sun03/16/21 Branch at 1813, Until [place] 03/17/21 at 1135, Routine, Cough acetaminoph 2020-0 Yes 650mg 650 mg, Un adali en 03-16 Oral, ity of (TYLENOL) 23:08: Q6HPRN, [place] tablet 650 16 Starting Medic al mg Sun03/16/21 Branch at 1808, Until Discontinu ed, Routine, Pain (scale 1-3) acetaminoph 0 Yes 650mg 650 mg, Un adali en 03-16 Oral, ity of (TYLENOL) 23:08: Q6HPRN, [place] tablet 650 16 Starting Medic al mg Sun03/16/21 Branch at 1808, Until Discontinu ed, Routine, Pain (scale 1-3) dexamethaso 0 2020- No 10mg 10 mg, IV Univers ne 03-16 Push, ity of (DECADRON 16:15: 15:53 ONCE, 1 [place] PHOSPHATE) 00 :00 dose, Sun Medi micky injection 03/16/21 at Branc h 10 mg 1115, STAT dexamethaso 2020- No 10mg 10 mg, IV Univers ne 03-16 Push, ity of (DECADRON 16:15: 15:53 ONCE, 1 [place] PHOSPHATE) 00 :00 dose, Sun Medi micky injection 03/16/21 at Branc h 10 mg 1115, STAT insulin 2018-07 Yes 16U inject 16 Unive rs degludec 2-23 Units ity of (TRESIBA 20:23: under the [place] FLEXTOUCH 02 skin. Medical U-100) 100 Branch unit/mL (3 mL) InPn ascorbic 2018-07 Yes 500mg Take 500 Univ ers acid, 2-23 mg by ity of vitamin C, 20:23: mouth [place] (VITAMIN C) 02 daily. Medica l 500 mg Branch tablet ascorbic 2018-07 Yes 500mg Take 500 Univ ers acid, 2-23 mg by ity of vitamin C, 20:23: mouth [place] (VITAMIN C) 02 daily. Medica l 500 mg Branch tablet insulin 2018-07 Yes 16U inject 16 Unive rs degludec 2-23 Units ity of (TRESIBA 20:23: under [place] FLEXTOUCH 02 skin. Medical U-100) 100 Branch unit/mL (3 mL) InPn insulin 2018-07 Yes 16U inject 16 Unive rs degludec 2-23 Units ity of (TRESIBA 20:23: under the [place] FLEXTOUCH 02 skin. Medical U-100) 100 Branch unit/mL (3 mL) InPn ascorbic 2018-07 Yes 500mg Take 500 Univ ers acid, 2-23 mg by ity of vitamin C, 20:23: mouth [place] (VITAMIN C) 02 daily. Medica l 500 mg Branch tablet insulin 2018-07 Yes 16U inject 16 Unive rs degludec 2-23 Units ity of (TRESIBA 20:23: under [place] FLEXTOUCH 02 skin. Medical U-100) 100 Branch unit/mL (3 mL) InPn ascorbic 2018-07 Yes 500mg Take 500 Univ ers acid, 2-23 mg by ity of vitamin C, 20:23: mouth [place] (VITAMIN C) 02 daily. Medica l 500 mg Branch tablet insulin 2018-07 Yes 16U inject 16 Unive rs degludec 2-23 Units ity of (TRESIBA 20:23: under the [place] FLEXTOUCH 02 skin. Medical U-100) 100 Branch unit/mL (3 mL) InPn ascorbic 2018-07 Yes 500mg Take 500 Univ ers acid, 2-23 mg by ity of vitamin C, 20:23: mouth [place] (VITAMIN C) 02 daily. Medica l 500 mg Branch tablet insulin 2018-07 Yes 16U inject 16 Unive rs degludec 2-23 Units ity of (TRESIBA 20:23: under the [place] FLEXTOUCH 02 skin. Medical U-100) 100 Branch unit/mL (3 mL) InPn ascorbic 2018-07 Yes 500mg Take 500 Univ ers acid, 2-23 mg by ity of vitamin C, 20:23: mouth [place] (VITAMIN C) 02 daily. Medica l 500 mg Branch tablet insulin 2018-07 Yes 16U inject 16 Unive rs degludec 2-23 Units ity of (TRESIBA 20:23: under the [place] FLEXTOUCH 02 skin. Medical U-100) 100 Branch unit/mL (3 mL) InPn ascorbic 2018-07 Yes 500mg Take 500 Univ ers acid, 2-23 mg by ity of vitamin C, 20:23: mouth [place] (VITAMIN C) 02 daily. Medica l 500 mg Branch tablet insulin 2018-07 Yes 16U inject 16 Unive rs degludec 2-23 Units ity of (TRESIBA 20:23: [facility] skin. Medical U-100) 100 Branch unit/mL (3 mL) InPn ascorbic 2018-07 Yes 500mg Take 500 Univ ers acid, 2-23 mg by ity of vitamin C, 20:23: mouth [place] (VITAMIN C) 02 daily. Medica l 500 mg Branch tablet insulin 2018-07 Yes 16U inject 16 Unive rs degludec 2-23 Units ity of (TRESIBA 20:23: [facility] 02 skin. Medical U-100) 100 Branch unit/mL (3 mL) InPn ascorbic 2018-07 Yes 500mg Take 500 Univ ers acid, 2-23 mg by ity of vitamin C, 20:23: mouth [place] (VITAMIN C) 02 daily. Medica l 500 mg Branch tablet ascorbic 2018-07 Yes 500mg Take 500 Univ ers acid, 2-23 mg by ity of vitamin C, 20:23: mouth [place] (VITAMIN C) 02 daily. Medica l 500 mg Branch tablet insulin 2018-07 Yes 16U inject 16 Unive rs degludec 2-23 Units ity of (TRESIBA 20:23: under the [place] FLEXTOUCH 02 skin. Medical U-100) 100 Branch unit/mL (3 mL) InPn ascorbic 2018-07 Yes 500mg Take 500 Univ ers acid, 2-23 mg by ity of vitamin C, 20:23: mouth [place] (VITAMIN C) 02 daily. Medica l 500 mg Branch tablet insulin 2018-07 Yes 16U inject 16 Unive rs degludec 2-23 Units ity of (TRESIBA 20:23: under the [place] FLEXTOUCH 02 skin. Medical U-100) 100 Branch unit/mL (3 mL) InPn ascorbic 2018-07 Yes 500mg Take 500 Univ ers acid, 2-23 mg by ity of vitamin C, 20:23: mouth [place] (VITAMIN C) 02 daily. Medica l 500 mg Branch tablet insulin 2018-07 Yes 16U inject 16 Unive rs degludec 2-23 Units ity of (TRESIBA 20:23: under the [place] FLEXTOUCH 02 skin. Medical U-100) 100 Branch unit/mL (3 mL) InPn ascorbic 2018-07 Yes 500mg Take 500 Univ ers acid, 2-23 mg by ity of vitamin C, 20:23: mouth [place] (VITAMIN C) 02 daily. Medica l 500 mg Branch tablet insulin 2018-07 Yes 16U inject 16 Unive rs degludec 2-23 Units ity of (TRESIBA 20:23: [facility] FLE[facility] 02 skin. Medical U-100) 100 Branch unit/mL (3 mL) InPn insulin 2018-07 Yes 16U inject 16 Unive rs degludec 2-23 Units ity of (TRESIBA 20:23: [facility] FLE[facility]CH 02 skin. Medical U-100) 100 Branch unit/mL (3 mL) InPn ascorbic 2018-07 Yes 500mg Take 500 Univ ers acid, 2-23 mg by ity of vitamin C, 20:23: mouth [place] (VITAMIN C) 02 daily. Medica l 500 mg Branch tablet insulin 2018-07 Yes 16U inject 16 Unive rs degludec 2-23 Units ity of (TRESIBA 20:23: under the [place] FLEXTOUCH 02 skin. Medical U-100) 100 Branch unit/mL (3 mL) InPn ascorbic 2018-07 Yes 500mg Take 500 Univ ers acid, 2-23 mg by ity of vitamin C, 20:23: mouth [place] (VITAMIN C) 02 daily. Medica l 500 mg Branch tablet insulin 2018-07 Yes 16U inject 16 Unive rs degludec 2-23 Units ity of (TRESIBA 20:23: under [place] FLEXTOUCH 02 skin. Medical U-100) 100 Branch unit/mL (3 mL) InPn ascorbic 2018-07 Yes 500mg Take 500 Univ ers acid, 2-23 mg by ity of vitamin C, 20:23: mouth [place] (VITAMIN C) 02 daily. Medica l 500 mg Branch tablet insulin 2018-07 Yes 16U inject 16 Unive rs degludec 2-23 Units ity of (TRESIBA 20:23: [place] FLEXTOUCH 02 skin. Medical U-100) 100 Branch unit/mL (3 mL) InPn ascorbic 2018-07 Yes 500mg Take 500 Univ ers acid, 2-23 mg by ity of vitamin C, 20:23: mouth [place] (VITAMIN C) 02 daily. Medica l 500 mg Branch tablet traMADol 50 2018-07 Yes [id number] 50mg Take 1 [facility] mg tablet 2-23 tablet by ity o f 00:00: mouth [place] 00 every 6 Medical (six) Branch hours as needed for Pain (scale 4-6) or Pain (scale 7-10). traMADol 50 2018-07 Yes [id number] 50mg Take 1 Univers mg tablet 2-23 tablet by ity o f 00:00: mouth [place] 00 every 6 Medical (six) Branch hours as needed for Pain (scale 4-6) or Pain (scale 7-10). triammera 2018-07 Yes [id number] Apply to [facility] 2-23 area(s) 2 ity of acetonide 00:00: (two) [place] 0.1 % cream 00 times Medical daily. Branch traMADol 50 2018-07 Yes [id number] 50mg Take 1 Univers mg tablet 2-23 tablet by ity o f 00:00: mouth [place] 00 every 6 Medical (six) Branch hours as needed for Pain (scale 4-6) or Pain (scale 7-10). traMADol 50 2018-07 Yes [id number] 50mg Take 1 [facility] mg tablet 2-23 tablet by ity o f 00:00: mouth [place] 00 every 6 Medical (six) Branch hours as needed for Pain (scale 4-6) or Pain (scale 7-10). traMADol 50 2018-07 Yes [id number] 50mg Take 1 [facility] mg tablet 2-23 tablet by ity o f 00:00: mouth [place] 00 every 6 Medical (six) Branch hours as needed for Pain (scale 4-6) or Pain (scale 7-10). triamcinolo 2018-07 Yes [id number] Apply to [facility] ne 2-23 area(s) 2 ity of acetonide 00:00: (two) [place] 0.1 % cream 00 times Medical daily. Branch traMADol 50 2018-07 Yes [id number] 50mg Take 1 [facility] mg tablet 2-23 tablet by ity o f 00:00: mouth [place] 00 every 6 Medical (six) Branch hours as needed for Pain (scale 4-6) or Pain (scale 7-10). traMADol 50 2018-07 Yes [id number] 50mg Take 1 [facility] mg tablet 2-23 tablet by ity o f 00:00: mouth [place] 00 every 6 Medical (six) Branch hours as needed for Pain (scale 4-6) or Pain (scale 7-10). triamcinolo 2018-07 Yes [id number] Apply to [facility] ne 2-23 area(s) 2 ity of acetonide 00:00: (two) [place] 0.1 % cream 00 times Medical daily. Branch triamcinolo 2018-07 Yes [id number] Apply to [facility] 2-23 area(s) 2 ity of acetonide 00:00: (two) [place] 0.1 % cream 00 times Medical daily. Branch traMADol 50 2018-07 Yes [id number] 50mg Take 1 [facility] mg tablet 2-23 tablet by ity o f 00:00: mouth [place] 00 every 6 Medical (six) Branch hours as needed for Pain (scale 4-6) or Pain (scale 7-10). triamcinolo 2018-07 Yes [id number] Apply to [facility] 2-23 area(s) 2 ity of acetonide 00:00: (two) [place] 0.1 % cream 00 times Medical daily. Branch traMADol 50 2018-07 Yes [id number] 50mg Take 1 [facility] mg tablet 2-23 tablet by ity o f 00:00: mouth [place] 00 every 6 Medical (six) Branch hours as needed for Pain (scale 4-6) or Pain (scale 7-10). triamcinolo 2018-07 Yes [id number] Apply to [facility] ne 2-23 area(s) 2 ity of acetonide 00:00: (two) [place] 0.1 % cream 00 times Medical daily. Branch traMADol 50 2018-07 Yes [id number] 50mg Take 1 [facility] mg tablet 2-23 tablet by ity o f 00:00: mouth [place] 00 every 6 Medical (six) Branch hours as needed for Pain (scale 4-6) or Pain (scale 7-10). triamcinolo 2018-07 Yes [id number] Apply to [facility] ne 2-23 area(s) 2 ity of acetonide 00:00: (two) [place] 0.1 % cream 00 times Medical daily. Branch traMADol 50 2018-07 Yes [id number] 50mg Take 1 [facility] mg tablet 2-23 tablet by ity o f 00:00: mouth [place] 00 every 6 Medical (six) Branch hours as needed for Pain (scale 4-6) or Pain (scale 7-10). triamcinolo 2018-07 Yes [id number] Apply to [facility] 2-23 area(s) 2 ity of acetonide 00:00: (two) [place] 0.1 % cream 00 times Medical daily. Branch traMADol 50 2018-07 Yes [id number] 50mg Take 1 [facility] mg tablet 2-23 tablet by ity o f 00:00: mouth [place] 00 every 6 Medical (six) Branch hours as needed for Pain (scale 4-6) or Pain (scale 7-10). triamcinolo 2018-07 Yes [id number] Apply to [facility] 2-23 area(s) 2 ity of acetonide 00:00: (two) [place] 0.1 % cream 00 times Medical daily. Branch traMADol 50 2018-07 Yes [id number] 50mg Take 1 [facility] mg tablet 2-23 tablet by ity o f 00:00: mouth [place] 00 every 6 Medical (six) Branch hours as needed for Pain (scale 4-6) or Pain (scale 7-10). triamcinolo 2018-07 Yes [id number] Apply to [facility] ne 2-23 area(s) 2 ity of acetonide 00:00: (two) [place] 0.1 % cream 00 times Medical daily. Branch traMADol 50 2018-07 Yes [id number] 50mg Take 1 [facility] mg tablet 2-23 tablet by ity o f 00:00: mouth [place] 00 every 6 Medical (six) Branch hours as needed for Pain (scale 4-6) or Pain (scale 7-10). triamcinolo 2018-07 Yes [id number] Apply to [facility] ne 2-23 area(s) 2 ity of acetonide 00:00: (two) [place] 0.1 % cream 00 times Medical daily. Branch traMADol 50 2018-07 Yes [id number] 50mg Take 1 [facility] mg tablet 2-23 tablet by ity o f 00:00: mouth [place] 00 every 6 Medical (six) Branch hours as needed for Pain (scale 4-6) or Pain (scale 7-10). triamcinolo 2018-07 Yes [id number] Apply to [facility] ne 2-23 area(s) 2 ity of acetonide 00:00: (two) [place] 0.1 % cream 00 times Medical daily. Branch traMADol 50 2018-07 Yes [id number] 50mg Take 1 [facility] mg tablet 2-23 tablet by ity o f 00:00: mouth [place] 00 every 6 Medical (six) Branch hours as needed for Pain (scale 4-6) or Pain (scale 7-10). triamcinolo 2018-07 Yes [id number] Apply to [facility] ne 2-23 area(s) 2 ity of acetonide 00:00: (two) [place] 0.1 % cream 00 times Medical daily. Branch traMADol 50 2018-07 Yes [id number] 50mg Take 1 [facility] mg tablet 2-23 tablet by ity o f 00:00: mouth [place] 00 every 6 Medical (six) Branch hours as needed for Pain (scale 4-6) or Pain (scale 7-10). traMADol 50 2018-07 Yes [id number] 50mg Take 1 [facility] mg tablet 2-23 tablet by ity o f 00:00: mouth [place] 00 every 6 Medical (six) Branch hours as needed for Pain (scale 4-6) or Pain (scale 7-10). triamcinolo 2018-07 Yes [id number] Apply to [facility] ne 2-23 area(s) 2 ity of acetonide 00:00: (two) [place] 0.1 % cream 00 times Medical daily. Branch triamcinolo 2018-07 Yes [id number] Apply to [facility] ne 2-23 area(s) 2 ity of acetonide 00:00: (two) [place] 0.1 % cream 00 times Medical daily. Branch traMADol 50 2018-07 Yes [id number] 50mg Take 1 [facility] mg tablet 2-23 tablet by ity o f 00:00: mouth [place] 00 every 6 Medical (six) Branch hours as needed for Pain (scale 4-6) or Pain (scale 7-10). [facility] Yes [id number] Apply to [facility] - area(s) 2 ity of acetonide 00:00: (two) [place] 0.1 % cream 00 times Medical daily. Branch traMADol 50 2018-07 Yes [id number] 50mg Take 1 [facility] mg tablet 2-23 tablet by ity o f 00:00: mouth [place] 00 every 6 Medical (six) Branch hours as needed for Pain (scale 4-6) or Pain (scale 7-10). [facility] Yes [id number] Apply to [facility] -23 area(s) 2 ity of acetonide 00:00: (two) [place] 0.1 % cream 00 times Medical daily. Branch traMADol 50 2018-07 Yes [id number] 50mg Take 1 [facility] mg tablet 2-23 tablet by ity o f 00:00: mouth [place] 00 every 6 Medical (six) Branch hours as needed for Pain (scale 4-6) or Pain (scale 7-10). traMADol 50 2018-07- No [id number] 50mg Take 1 [facility] mg tablet 08-31-15 tablet by ity of 00:00: 00:00 mouth [place] 00 :00 every 6 Medical (six) Branch hours as needed for Pain (scale 4-6) or Pain (scale 7-10). traMADol 50 2018-07- No [id number] 50mg Take 1 [facility] mg tablet 08-31-15 tablet by ity of 00:00: 00:00 mouth [place] 00 :00 every 6 Medical (six) Branch hours as needed for Pain (scale 4-6) or Pain (scale 7-10). triamcinolo 2018-07- No [id number] Apply to [facility] -03-16 area(s) 2 ity of acetonide 00:00: 00:00 (two) [place] 0.1 % cream 00 :00 times Medical daily. Branch triamcinolo 2018-07- No [id number] Apply to [facility] -03-16 area(s) 2 ity of acetonide 00:00: 00:00 (two) [place] 0.1 % cream 00 :00 times Medical daily. Branch CALCIUM 2019-0 Yes 1{tbl} Take 1 [facility] CARBONATE/V 9-10 tablet by ity of ITAMIN D3 22:55: mouth. [place] (CALCIUM 56 Medical 600 + D,3, Branch ORAL) ascorbic 2019- Yes 500mg Take 500 Univ ers acid, 9-10 mg by ity of vitamin C, 22:55: mouth [place] (VITAMIN C) 56 daily. Medica l 500 mg Branch tablet CALCIUM 2019-0 Yes 1{tbl} Take 1 [facility] CARBONATE/V 9-10 tablet by ity of ITAMIN D3 22:55: mouth. [place] (CALCIUM 56 Medical 600 + D,3, Branch ORAL) ascorbic 2019- Yes 500mg Take 500 Univ ers acid, 9-10 mg by ity of vitamin C, 22:55: mouth [place] (VITAMIN C) 56 daily. Medica l 500 mg Branch tablet omeprazole 2019- No 40mg Take 40 mg [facility] 40 mg 9-10 09-10 by mouth ity of capsule 18:46: 00:00 daily. [place] 42 :00 Medical Branch Fluticasone 2019- No 1{puff} Inhale 1 [facility] Propionate 9- 09-10 Puff as ity o f 100 18:46: 00:00 needed for [place] mcg/actuati 42 :00 Other Medical on (Seasonal Branch inhalation Allergies) disk . nepafenac 2019- No 1[drp] Place 1 Un adali (ILEVRO) 9- 09-10 Drop in ity of 0.3 % DrpS 18:46: 00:00 each eye [place] 42 :00 daily. Medical Branch omeprazole 2018-0 Yes [id number] 40mg Take 1 [facility] 40 mg 9-10 9100 capsule by ity of capsule 00:00: mouth [place] 00 daily. Medical Branch carvedilol Yes [id number] 25mg Take 1 [facility] 25 mg 9-10 9103 tablet by ity of tablet 00:00: mouth 2 00 (two) Medical times Branch daily with meals. digoxin 125 2018- Yes [id number] 125ug Take 1 [facility] mcg tablet 9-10 9103 tablet by ity of 00:00: mouth [place] 00 daily. Medical Branch rOPINIRole 2018- Yes [id number] 2mg Take 1 [facility] 2 mg tablet 9-10 9103 tablet by ity of 00:00: mouth 2 [place] 00 (two) Medical times Branch daily. apixaban 2019-0 Yes [id number] 5mg Take 1 [facility] (ELIQUIS) 5 9-10 9103 tablet by ity of mg tablet 00:00: mouth 2 (two) Medical times Branch daily. atorvastati 2019-0 Yes [id number] 40mg Take 1 [facility] n (LIPITOR) 9-10 9103 tablet by ity of 40 mg 00:00: mouth at [place] tablet 00 bedtime. Medical Branch gabapentin 2019-0 Yes [id number] 300mg Take 1 [facility] 300 mg 9-10 9100 capsule by ity of capsule 00:00: mouth 2 (two) Medical times Branch daily. omeprazole 2019-0 Yes [id number] 40mg Take 1 [facility] 40 mg 9-10 9100 capsule by ity of capsule 00:00: mouth [place] 00 daily. Medical Branch carvedilol 2018-0 Yes [id number] 25mg Take 1 [facility] 25 mg 9-10 9103 tablet by ity of tablet 00:00: mouth (two) Medical times Branch daily with meals. digoxin 125 2019-0 Yes [id number] 125ug Take 1 [facility] mcg tablet 9-10 9103 tablet by ity of 00:00: mouth 00 daily. Medical Branch rOPINIRole 2019-0 Yes [id number] 2mg Take 1 [facility] 2 mg tablet 9-10 9103 tablet by ity of 00:00: mouth 2 (two) Medical times Branch daily. apixaban 2019-0 Yes [id number] 5mg Take 1 [facility] (ELIQUIS) 5 9-10 9103 tablet by ity of mg tablet 00:00: mouth 2 (two) Medical times Branch daily. atorvastati 2019-0 Yes [id number] 40mg Take 1 [facility] n (LIPITOR) 9-10 9103 tablet by ity of 40 mg 00:00: mouth at [place] tablet 00 bedtime. Medical Branch gabapentin 2019-0 Yes [id number] 300mg Take 1 [facility] 300 mg 9-10 9100 capsule by ity of capsule 00:00: mouth 2 (two) Medical times Branch daily. omeprazole 2019-0 Yes [id number] 40mg Take 1 [facility] 40 mg 9-10 9100 capsule by ity of capsule 00:00: mouth [place] 00 daily. Medical Branch carvedilol 2019-0 Yes [id number] 25mg Take 1 [facility] 25 mg 9-10 9103 tablet by ity of tablet 00:00: mouth 2 (two) Medical times Branch daily with meals. digoxin 125 2019-0 Yes [id number] 125ug Take 1 [facility] mcg tablet 9-10 9103 tablet by ity of 00:00: mouth [place] 00 daily. Medical Branch rOPINIRole 2019-0 Yes [id number] 2mg Take 1 [facility] 2 mg tablet 9-10 9103 tablet by ity of 00:00: mouth 2 (two) Medical times Branch daily. apixaban 2019-0 Yes [id number] 5mg Take 1 [facility] (ELIQUIS) 5 9-10 9103 tablet by ity of mg tablet 00:00: mouth 2 (two) Medical times Branch daily. atorvastati 2018- Yes [id number] 40mg Take 1 [facility] n (LIPITOR) 9-10 9103 tablet by ity of 40 mg 00:00: mouth at [place] tablet 00 bedtime. Medical Branch gabapentin 2019-0 Yes [id number] 300mg Take 1 [facility] 300 mg 9-10 9100 capsule by ity of capsule 00:00: mouth (two) Medical times Branch daily. omeprazole 2019-0 Yes [id number] 40mg Take 1 [facility] 40 mg 9-10 9100 capsule by ity of capsule 00:00: mouth [place] 00 daily. Medical Branch carvedilol 2018-0 Yes [id number] 25mg Take 1 [facility] 25 mg 9-10 9103 tablet by ity of tablet 00:00: mouth 2 (two) Medical times Branch daily with meals. digoxin 125 2018-0 Yes [id number] 125ug Take 1 [facility] mcg tablet 9-10 9103 tablet by ity of 00:00: mouth [place] 00 daily. Medical Branch rOPINIRole 2019-0 Yes [id number] 2mg Take 1 [facility] 2 mg tablet 9-10 9103 tablet by ity of 00:00: mouth 2 (two) Medical times Branch daily. apixaban 2019-0 Yes [id number] 5mg Take 1 [facility] (ELIQUIS) 5 9-10 9103 tablet by ity of mg tablet 00:00: mouth 2 (two) Medical times Branch daily. atorvastati 2018-0 Yes [id number] 40mg Take 1 [facility] n (LIPITOR) 9-10 9103 tablet by ity of 40 mg 00:00: mouth at [place] tablet 00 bedtime. Medical Branch gabapentin 2019-0 Yes [id number] 300mg Take 1 [facility] 300 mg 9-10 9100 capsule by ity of capsule 00:00: mouth 2 [place] 00 (two) Medical times Branch daily. omeprazole 2019-0 Yes [id number] 40mg Take 1 [facility] 40 mg 9-10 9100 capsule by ity of capsule 00:00: mouth [place] 00 daily. Medical Branch carvedilol 2018-0 Yes [id number] 25mg Take 1 [facility] 25 mg 9-10 9103 tablet by ity of tablet 00:00: mouth 2 (two) Medical times Branch daily with meals. digoxin 125 2018-0 Yes [id number] 125ug Take 1 [facility] mcg tablet 9-10 9103 tablet by ity of 00:00: mouth [place] 00 daily. Medical Branch rOPINIRole 2018-0 Yes [id number] 2mg Take 1 [facility] 2 mg tablet 9-10 9103 tablet by ity of 00:00: mouth 2 00 (two) Medical times Branch daily. apixaban 2018-0 Yes [id number] 5mg Take 1 [facility] (ELIQUIS) 5 9-10 9103 tablet by ity of mg tablet 00:00: mouth 2 00 (two) Medical times Branch daily. atorvastati 2018-0 Yes [id number] 40mg Take 1 [facility] n (LIPITOR) 9-10 9103 tablet by ity of 40 mg 00:00: mouth at [place] tablet 00 bedtime. Medical Branch gabapentin 2018-0 Yes [id number] 300mg Take 1 [facility] 300 mg 9-10 9100 capsule by ity of capsule 00:00: mouth 2 00 (two) Medical times Branch daily. omeprazole 2019-0 Yes [id number] 40mg Take 1 [facility] 40 mg 9-10 9100 capsule by ity of capsule 00:00: mouth [place] 00 daily. Medical Branch carvedilol 2018-0 Yes [id number] 25mg Take 1 [facility] 25 mg 9-10 9103 tablet by ity of tablet 00:00: mouth 2 00 (two) Medical times Branch daily with meals. digoxin 125 2018-0 Yes [id number] 125ug Take 1 [facility] mcg tablet 9-10 9103 tablet by ity of 00:00: mouth [place] 00 daily. Medical Branch rOPINIRole 2019- Yes [id number] 2mg Take 1 [facility] 2 mg tablet 9-10 9103 tablet by ity of 00:00: mouth 2 [place] 00 (two) Medical times Branch daily. apixaban 2019- Yes [id number] 5mg Take 1 [facility] (ELIQUIS) 5 9-10 9103 tablet by ity of mg tablet 00:00: mouth 2 [place] 00 (two) Medical times Branch daily. atorvastati 2019- Yes [id number] 40mg Take 1 [facility] n (LIPITOR) 9-10 9103 tablet by ity of 40 mg 00:00: mouth at [place] tablet 00 bedtime. Medical Branch gabapentin 2018- Yes [id number] 300mg Take 1 [facility] 300 mg 9-10 9100 capsule by ity of capsule 00:00: mouth 2 [place] 00 (two) Medical times Branch daily. omeprazole 2018-0 Yes [id number] 40mg Take 1 [facility] 40 mg 9-10 9100 capsule by ity of capsule 00:00: mouth [place] 00 daily. Medical Branch carvedilol Yes [id number] 25mg Take 1 [facility] 25 mg 9-10 9103 tablet by ity of tablet 00:00: mouth 2 [place] 00 (two) Medical times Branch daily with meals. digoxin 125 2018- Yes [id number] 125ug Take 1 [facility] mcg tablet 9-10 9103 tablet by ity of 00:00: mouth [place] 00 daily. Medical Branch furosemide 2018- Yes [id number] 40mg Take 1 [facility] 40 mg 9-10 9103 tablet by ity of tablet 00:00: mouth [place] 00 daily. Medical Branch insulin 2018- Yes [id number] 10U inject 10 [facility] glargine 9-10 9103 Units ity of 100 unit/mL 00:00: under the [place] injection 00 skin every [facility] 12 Branch (twelve) hours. rOPINIRole 2018-0 Yes [id number] 2mg Take 1 [facility] 2 mg tablet 9-10 9103 tablet by ity of 00:00: mouth 2 [place] 00 (two) Medical times Branch daily. apixaban 2018- Yes [id number] 5mg Take 1 [facility] (ELIQUIS) 5 9-10 9103 tablet by ity of mg tablet 00:00: mouth 2 00 (two) Medical times Branch daily. atorvastati 2019-0 Yes [id number] 40mg Take 1 [facility] n (LIPITOR) 9-10 9103 tablet by ity of 40 mg 00:00: mouth at [place] tablet 00 bedtime. Medical Branch gabapentin 2019-0 Yes [id number] 300mg Take 1 [facility] 300 mg 9-10 9100 capsule by ity of capsule 00:00: mouth 2 (two) Medical times Branch daily. omeprazole 2019-0 Yes [id number] 40mg Take 1 [facility] 40 mg 9-10 9100 capsule by ity of capsule 00:00: mouth [place] 00 daily. Medical Branch carvedilol 2018- Yes [id number] 25mg Take 1 [facility] 25 mg 9-10 9103 tablet by ity of tablet 00:00: mouth 2 (two) Medical times Branch daily with meals. apixaban 2018- Yes [id number] 5mg Take 1 [facility] (ELIQUIS) 5 9-10 9103 tablet by ity of mg tablet 00:00: mouth 2 (two) Medical times Branch daily. atorvastati 2018-0 Yes [id number] 40mg Take 1 [facility] n (LIPITOR) 9-10 9103 tablet by ity of 40 mg 00:00: mouth at [place] tablet 00 bedtime. Medical Branch digoxin 125 2018-0 Yes [id number] 125ug Take 1 [facility] mcg tablet 9-10 9103 tablet by ity of 00:00: mouth [place] 00 daily. Medical Branch gabapentin 2018-0 Yes [id number] 300mg Take 1 [facility] 300 mg 9-10 9100 capsule by ity of capsule 00:00: mouth 2 (two) Medical times Branch daily. omeprazole 2019-0 Yes [id number] 40mg Take 1 [facility] 40 mg 9-10 9100 capsule by ity of capsule 00:00: mouth [place] 00 daily. Medical Branch carvedilol 2018-0 Yes [id number] 25mg Take 1 [facility] 25 mg 9-10 9103 tablet by ity of tablet 00:00: mouth 2 (two) Medical times Branch daily with meals. digoxin 125 2018- Yes [id number] 125ug Take 1 [facility] mcg tablet 9-10 9103 tablet by ity of 00:00: mouth [place] 00 daily. Medical Branch furosemide 2019-0 Yes [id number] 40mg Take 1 [facility] 40 mg 9-10 9103 tablet by ity of tablet 00:00: mouth [place] 00 daily. Medical Branch insulin 2019-0 Yes [id number] 10U inject 10 [facility] glargine 9-10 9103 Units ity of 100 unit/mL 00:00: under the [place] injection 00 skin every [facility] 12 Branch (twelve) hours. rOPINIRole 2019-0 Yes [id number] 2mg Take 1 [facility] 2 mg tablet 9-10 9103 tablet by ity of 00:00: mouth 2 00 (two) Medical times Branch daily. rOPINIRole 2019-0 Yes [id number] 2mg Take 1 [facility] 2 mg tablet 9-10 9103 tablet by ity of 00:00: mouth 2 (two) Medical times Branch daily. apixaban 2019-0 Yes [id number] 5mg Take 1 [facility] (ELIQUIS) 5 9-10 9103 tablet by ity of mg tablet 00:00: mouth 2 (two) Medical times Branch daily. atorvastati 2019-0 Yes [id number] 40mg Take 1 [facility] n (LIPITOR) 9-10 9103 tablet by ity of 40 mg 00:00: mouth at [place] tablet 00 bedtime. Medical Branch gabapentin 2019-0 Yes [id number] 300mg Take 1 [facility] 300 mg 9-10 9100 capsule by ity of capsule 00:00: mouth 2 (two) Medical times Branch daily. omeprazole 2019-0 Yes [id number] 40mg Take 1 [facility] 40 mg 9-10 9100 capsule by ity of capsule 00:00: mouth [place] 00 daily. Medical Branch carvedilol 2019-0 Yes [id number] 25mg Take 1 [facility] 25 mg 9-10 9103 tablet by ity of tablet 00:00: mouth 2 00 (two) Medical times Branch daily with meals. digoxin 125 2019-0 Yes [id number] 125ug Take 1 [facility] mcg tablet 9-10 9103 tablet by ity of 00:00: mouth [place] 00 daily. Medical Branch rOPINIRole 2019-0 Yes [id number] 2mg Take 1 [facility] 2 mg tablet 9-10 9103 tablet by ity of 00:00: mouth 2 [place] 00 (two) Medical times Branch daily. apixaban 2019-0 Yes [id number] 5mg Take 1 [facility] (ELIQUIS) 5 9-10 9103 tablet by ity of mg tablet 00:00: mouth 2 00 (two) Medical times Branch daily. atorvastati 2019-0 Yes [id number] 40mg Take 1 [facility] n (LIPITOR) 9-10 9103 tablet by ity of 40 mg 00:00: mouth at [place] tablet 00 bedtime. Medical Branch gabapentin 2019-0 Yes [id number] 300mg Take 1 [facility] 300 mg 9-10 9100 capsule by ity of capsule 00:00: mouth 2 00 (two) Medical times Branch daily. omeprazole 2019-0 Yes [id number] 40mg Take 1 [facility] 40 mg 9-10 9100 capsule by ity of capsule 00:00: mouth [place] 00 daily. Medical Branch carvedilol 2019-0 Yes [id number] 25mg Take 1 [facility] 25 mg 9-10 9103 tablet by ity of tablet 00:00: mouth 2 (two) Medical times Branch daily with meals. digoxin 125 2019-0 Yes [id number] 125ug Take 1 [facility] mcg tablet 9-10 9103 tablet by ity of 00:00: mouth [place] 00 daily. Medical Branch rOPINIRole 2019-0 Yes [id number] 2mg Take 1 [facility] 2 mg tablet 9-10 9103 tablet by ity of 00:00: mouth 2 (two) Medical times Branch daily. apixaban 2019-0 Yes [id number] 5mg Take 1 [facility] (ELIQUIS) 5 9-10 9103 tablet by ity of mg tablet 00:00: mouth 2 (two) Medical times Branch daily. atorvastati 2019-0 Yes [id number] 40mg Take 1 [facility] n (LIPITOR) 9-10 9103 tablet by ity of 40 mg 00:00: mouth at [place] tablet 00 bedtime. Medical Branch gabapentin 2019-0 Yes [id number] 300mg Take 1 [facility] 300 mg 9-10 9100 capsule by ity of capsule 00:00: mouth 2 00 (two) Medical times Branch daily. omeprazole 2019-0 Yes [id number] 40mg Take 1 [facility] 40 mg 9-10 9100 capsule by ity of capsule 00:00: mouth [place] 00 daily. Medical Branch carvedilol 2019-0 Yes [id number] 25mg Take 1 [facility] 25 mg 9-10 9103 tablet by ity of tablet 00:00: mouth 2 (two) Medical times Branch daily with meals. digoxin 125 2019-0 Yes [id number] 125ug Take 1 [facility] mcg tablet 9-10 9103 tablet by ity of 00:00: mouth [place] 00 daily. Medical Branch rOPINIRole 2019-0 Yes [id number] 2mg Take 1 [facility] 2 mg tablet 9-10 9103 tablet by ity of 00:00: mouth 2 (two) Medical times Branch daily. apixaban 2019-0 Yes [id number] 5mg Take 1 [facility] (ELIQUIS) 5 9-10 9103 tablet by ity of mg tablet 00:00: mouth 2 (two) Medical times Branch daily. atorvastati 2019- Yes [id number] 40mg Take 1 [facility] n (LIPITOR) 9-10 9103 tablet by ity of 40 mg 00:00: mouth at [place] tablet 00 bedtime. Medical Branch gabapentin 2019-0 Yes [id number] 300mg Take 1 [facility] 300 mg 9-10 9100 capsule by ity of capsule 00:00: mouth 2 (two) Medical times Branch daily. omeprazole 2019-0 Yes [id number] 40mg Take 1 [facility] 40 mg 9-10 9100 capsule by ity of capsule 00:00: mouth [place] 00 daily. Medical Branch carvedilol 2018-0 Yes [id number] 25mg Take 1 [facility] 25 mg 9-10 9103 tablet by ity of tablet 00:00: mouth 2 (two) Medical times Branch daily with meals. digoxin 125 2018-0 Yes [id number] 125ug Take 1 [facility] mcg tablet 9-10 9103 tablet by ity of 00:00: mouth [place] 00 daily. Medical Branch rOPINIRole 2019-0 Yes [id number] 2mg Take 1 [facility] 2 mg tablet 9-10 9103 tablet by ity of 00:00: mouth 2 (two) Medical times Branch daily. apixaban 2019-0 Yes [id number] 5mg Take 1 [facility] (ELIQUIS) 5 9-10 9103 tablet by ity of mg tablet 00:00: mouth 2 (two) Medical times Branch daily. atorvastati 2019-0 Yes [id number] 40mg Take 1 [facility] n (LIPITOR) 9-10 9103 tablet by ity of 40 mg 00:00: mouth at [place] tablet 00 bedtime. Medical Branch gabapentin 2019-0 Yes [id number] 300mg Take 1 [facility] 300 mg 9-10 9100 capsule by ity of capsule 00:00: mouth 2 [place] 00 (two) Medical times Branch daily. omeprazole 2019-0 Yes [id number] 40mg Take 1 [facility] 40 mg 9-10 9100 capsule by ity of capsule 00:00: mouth [place] 00 daily. Medical Branch carvedilol 2019-0 Yes [id number] 25mg Take 1 [facility] 25 mg 9-10 9103 tablet by ity of tablet 00:00: mouth 2 00 (two) Medical times Branch daily with meals. digoxin 125 2019-0 Yes [id number] 125ug Take 1 [facility] mcg tablet 9-10 9103 tablet by ity of 00:00: mouth [place] 00 daily. Medical Branch rOPINIRole 2019-0 Yes [id number] 2mg Take 1 [facility] 2 mg tablet 9-10 9103 tablet by ity of 00:00: mouth 2 (two) Medical times Branch daily. apixaban 2019-0 Yes [id number] 5mg Take 1 [facility] (ELIQUIS) 5 9-10 9103 tablet by ity of mg tablet 00:00: mouth 2 00 (two) Medical times Branch daily. atorvastati 2019-0 Yes [id number] 40mg Take 1 [facility] n (LIPITOR) 9-10 9103 tablet by ity of 40 mg 00:00: mouth at [place] tablet 00 bedtime. Medical Branch gabapentin 2019-0 Yes [id number] 300mg Take 1 [facility] 300 mg 9-10 9100 capsule by ity of capsule 00:00: mouth 2 00 (two) Medical times Branch daily. omeprazole 2019-0 Yes [id number] 40mg Take 1 [facility] 40 mg 9-10 9100 capsule by ity of capsule 00:00: mouth [place] 00 daily. Medical Branch carvedilol 2019-0 Yes [id number] 25mg Take 1 [facility] 25 mg 9-10 9103 tablet by ity of tablet 00:00: mouth 2 00 (two) Medical times Branch daily with meals. digoxin 125 2019-0 Yes [id number] 125ug Take 1 [facility] mcg tablet 9-10 9103 tablet by ity of 00:00: mouth [place] 00 daily. Medical Branch rOPINIRole 2019-0 Yes [id number] 2mg Take 1 [facility] 2 mg tablet 9-10 9103 tablet by ity of 00:00: mouth 2 (two) Medical times Branch daily. apixaban 2019-0 Yes [id number] 5mg Take 1 [facility] (ELIQUIS) 5 9-10 9103 tablet by ity of mg tablet 00:00: mouth 2 (two) Medical times Branch daily. atorvastati 2019-0 Yes [id number] 40mg Take 1 [facility] n (LIPITOR) 9-10 9103 tablet by ity of 40 mg 00:00: mouth at [place] tablet 00 bedtime. Medical Branch gabapentin 2019-0 Yes [id number] 300mg Take 1 [facility] 300 mg 9-10 9100 capsule by ity of capsule 00:00: mouth 2 (two) Medical times Branch daily. omeprazole 2018-0 Yes [id number] 40mg Take 1 [facility] 40 mg 9-10 9100 capsule by ity of capsule 00:00: mouth 00 daily. Medical Branch carvedilol 2018-0 Yes [id number] 25mg Take 1 [facility] 25 mg 9-10 9103 tablet by ity of tablet 00:00: mouth 2 (two) Medical times Branch daily with meals. digoxin 125 2019-0 Yes [id number] 125ug Take 1 [facility] mcg tablet 9-10 9103 tablet by ity of 00:00: mouth 00 daily. Medical Branch rOPINIRole 2018-0 Yes [id number] 2mg Take 1 [facility] 2 mg tablet 9-10 9103 tablet by ity of 00:00: mouth 2 (two) Medical times Branch daily. apixaban 2019-0 Yes [id number] 5mg Take 1 [facility] (ELIQUIS) 5 9-10 9103 tablet by ity of mg tablet 00:00: mouth 2 (two) Medical times Branch daily. apixaban 2019-0 Yes [id number] 5mg Take 1 [facility] (ELIQUIS) 5 9-10 9103 tablet by ity of mg tablet 00:00: mouth 2 (two) Medical times Branch daily. atorvastati 2019-0 Yes [id number] 40mg Take 1 [facility] n (LIPITOR) 9-10 9103 tablet by ity of 40 mg 00:00: mouth at [place] tablet 00 bedtime. Medical Branch gabapentin 2019-0 Yes [id number] 300mg Take 1 [facility] 300 mg 9-10 9100 capsule by ity of capsule 00:00: mouth 2 (two) Medical times Branch daily. omeprazole 2019-0 Yes [id number] 40mg Take 1 [facility] 40 mg 9-10 9100 capsule by ity of capsule 00:00: mouth [place] 00 daily. Medical Branch carvedilol 2019-0 Yes [id number] 25mg Take 1 [facility] 25 mg 9-10 9103 tablet by ity of tablet 00:00: mouth 2 (two) Medical times Branch daily with meals. digoxin 125 2019-0 Yes [id number] 125ug Take 1 [facility] mcg tablet 9-10 9103 tablet by ity of 00:00: mouth [place] 00 daily. Medical Branch rOPINIRole 2019-0 Yes [id number] 2mg Take 1 [facility] 2 mg tablet 9-10 9103 tablet by ity of 00:00: mouth 2 (two) Medical times Branch daily. atorvastati 2019-0 Yes [id number] 40mg Take 1 [facility] n (LIPITOR) 9-10 9103 tablet by ity of 40 mg 00:00: mouth at [place] tablet 00 bedtime. Medical Branch apixaban 2019-0 Yes [id number] 5mg Take 1 [facility] (ELIQUIS) 5 9-10 9103 tablet by ity of mg tablet 00:00: mouth 2 (two) Medical times Branch daily. atorvastati 2019-0 Yes [id number] 40mg Take 1 [facility] n (LIPITOR) 9-10 9103 tablet by ity of 40 mg 00:00: mouth at [place] tablet 00 bedtime. Medical Branch gabapentin 2019-0 Yes [id number] 300mg Take 1 [facility] 300 mg 9-10 9100 capsule by ity of capsule 00:00: mouth 2 (two) Medical times Branch daily. gabapentin 2019-0 Yes [id number] 300mg Take 1 [facility] 300 mg 9-10 9100 capsule by ity of capsule 00:00: mouth 2 (two) Medical times Branch daily. omeprazole 2019-0 Yes [id number] 40mg Take 1 [facility] 40 mg 9-10 9100 capsule by ity of capsule 00:00: mouth [place] 00 daily. Medical Branch carvedilol 2019-0 Yes [id number] 25mg Take 1 [facility] 25 mg 9-10 9103 tablet by ity of tablet 00:00: mouth 2 00 (two) Medical times Branch daily with meals. digoxin 125 2018-0 Yes [id number] 125ug Take 1 [facility] mcg tablet 9-10 9103 tablet by ity of 00:00: mouth [place] 00 daily. Medical Branch rOPINIRole 2019- Yes [id number] 2mg Take 1 [facility] 2 mg tablet 9-10 9103 tablet by ity of 00:00: mouth 2 [place] 00 (two) Medical times Branch daily. omeprazole 2019-0 Yes [id number] 40mg Take 1 [facility] 40 mg 9-10 9100 capsule by ity of capsule 00:00: mouth [place] 00 daily. Medical Branch apixaban 2018- Yes [id number] 5mg Take 1 [facility] (ELIQUIS) 5 9-10 9103 tablet by ity of mg tablet 00:00: mouth 2 (two) Medical times Branch daily. atorvastati 2018-0 Yes [id number] 40mg Take 1 [facility] n (LIPITOR) 9-10 9103 tablet by ity of 40 mg 00:00: mouth at [place] tablet 00 bedtime. Medical Branch gabapentin 2018-0 Yes [id number] 300mg Take 1 [facility] 300 mg 9-10 9100 capsule by ity of capsule 00:00: mouth 2 (two) Medical times Branch daily. omeprazole 2019-0 Yes [id number] 40mg Take 1 [facility] 40 mg 9-10 9100 capsule by ity of capsule 00:00: mouth [place] 00 daily. Medical Branch carvedilol 2018-0 Yes [id number] 25mg Take 1 [facility] 25 mg 9-10 9103 tablet by ity of tablet 00:00: mouth 2 (two) Medical times Branch daily with meals. carvedilol 2019-0 Yes [id number] 25mg Take 1 [facility] 25 mg 9-10 9103 tablet by ity of tablet 00:00: mouth 2 [place] (two) Medical times Branch daily with meals. digoxin 125 2018-0 Yes [id number] 125ug Take 1 [facility] mcg tablet 9-10 9103 tablet by ity of 00:00: mouth [place] 00 daily. Medical Branch rOPINIRole 2018-0 Yes [id number] 2mg Take 1 [facility] 2 mg tablet 9-10 9103 tablet by ity of 00:00: mouth 2 (two) Medical times Branch daily. digoxin 125 2019-0 Yes [id number] 125ug Take 1 [facility] mcg tablet 9-10 9103 tablet by ity of 00:00: mouth [place] 00 daily. Medical Branch apixaban 2019-0 Yes [id number] 5mg Take 1 [facility] (ELIQUIS) 5 9-10 9103 tablet by ity of mg tablet 00:00: mouth 2 (two) Medical times Branch daily. atorvastati 2019-0 Yes [id number] 40mg Take 1 [facility] n (LIPITOR) 9-10 9103 tablet by ity of 40 mg 00:00: mouth at [place] tablet 00 bedtime. Medical Branch gabapentin 2019-0 Yes [id number] 300mg Take 1 [facility] 300 mg 9-10 9100 capsule by ity of capsule 00:00: mouth 2 (two) Medical times Branch daily. omeprazole 2019-0 Yes [id number] 40mg Take 1 [facility] 40 mg 9-10 9100 capsule by ity of capsule 00:00: mouth 00 daily. Medical Branch carvedilol 2018-0 Yes [id number] 25mg Take 1 [facility] 25 mg 9-10 9103 tablet by ity of tablet 00:00: mouth (two) Medical times Branch daily with meals. digoxin 125 2018-0 Yes [id number] 125ug Take 1 [facility] mcg tablet 9-10 9103 tablet by ity of 00:00: mouth [place] 00 daily. Medical Branch rOPINIRole 2019-0 Yes [id number] 2mg Take 1 [facility] 2 mg tablet 9-10 9103 tablet by ity of 00:00: mouth 2 (two) Medical times Branch daily. rOPINIRole 2019-0 Yes [id number] 2mg Take 1 [facility] 2 mg tablet 9-10 9103 tablet by ity of 00:00: mouth 2 (two) Medical times Branch daily. apixaban 2019-0 Yes [id number] 5mg Take 1 [facility] (ELIQUIS) 5 9-10 9103 tablet by ity of mg tablet 00:00: mouth 2 (two) Medical times Branch daily. atorvastati 2019-0 Yes [id number] 40mg Take 1 [facility] n (LIPITOR) 9-10 9103 tablet by ity of 40 mg 00:00: mouth at [place] tablet 00 bedtime. Medical Branch gabapentin 2019-0 Yes [id number] 300mg Take 1 [facility] 300 mg 9-10 9100 capsule by ity of capsule 00:00: mouth 2 00 (two) Medical times Branch daily. omeprazole 2019-0 Yes [id number] 40mg Take 1 [facility] 40 mg 9-10 9100 capsule by ity of capsule 00:00: mouth [place] 00 daily. Medical Branch carvedilol 2019-0 Yes [id number] 25mg Take 1 [facility] 25 mg 9-10 9103 tablet by ity of tablet 00:00: mouth 2 (two) Medical times Branch daily with meals. digoxin 125 2019-0 Yes [id number] 125ug Take 1 [facility] mcg tablet 9-10 9103 tablet by ity of 00:00: mouth [place] 00 daily. Medical Branch rOPINIRole 2019-0 Yes [id number] 2mg Take 1 [facility] 2 mg tablet 9-10 9103 tablet by ity of 00:00: mouth 2 (two) Medical times Branch daily. apixaban 2019-0 Yes [id number] 5mg Take 1 [facility] (ELIQUIS) 5 9-10 9103 tablet by ity of mg tablet 00:00: mouth 2 (two) Medical times Branch daily. atorvastati 2019-0 Yes [id number] 40mg Take 1 [facility] n (LIPITOR) 9-10 9103 tablet by ity of 40 mg 00:00: mouth at [place] tablet 00 bedtime. Medical Branch gabapentin 2019-0 Yes [id number] 300mg Take 1 [facility] 300 mg 9-10 9100 capsule by ity of capsule 00:00: mouth 2 (two) Medical times Branch daily. omeprazole 2019-0 Yes [id number] 40mg Take 1 [facility] 40 mg 9-10 9100 capsule by ity of capsule 00:00: mouth [place] 00 daily. Medical Branch carvedilol 2019-0 Yes [id number] 25mg Take 1 [facility] 25 mg 9-10 9103 tablet by ity of tablet 00:00: mouth 2 (two) Medical times Branch daily with meals. digoxin 125 2019-0 Yes [id number] 125ug Take 1 [facility] mcg tablet 9-10 9103 tablet by ity of 00:00: mouth [place] 00 daily. Medical Branch rOPINIRole 2019-0 Yes [id number] 2mg Take 1 [facility] 2 mg tablet 9-10 9103 tablet by ity of 00:00: mouth 2 00 (two) Medical times Branch daily. apixaban 2019-0 Yes [id number] 5mg Take 1 [facility] (ELIQUIS) 5 9-10 9103 tablet by ity of mg tablet 00:00: mouth 2 00 (two) Medical times Branch daily. atorvastati 2019-0 Yes [id number] 40mg Take 1 [facility] n (LIPITOR) 9-10 9103 tablet by ity of 40 mg 00:00: mouth at [place] tablet 00 bedtime. Medical Branch gabapentin 2019-0 Yes [id number] 300mg Take 1 [facility] 300 mg 9-10 9100 capsule by ity of capsule 00:00: mouth 2 (two) Medical times Branch daily. omeprazole 2019-0 Yes [id number] 40mg Take 1 [facility] 40 mg 9-10 9100 capsule by ity of capsule 00:00: mouth [place] 00 daily. Medical Branch carvedilol 2018-0 Yes [id number] 25mg Take 1 [facility] 25 mg 9-10 9103 tablet by ity of tablet 00:00: mouth 2 (two) Medical times Branch daily with meals. digoxin 125 2019-0 Yes [id number] 125ug Take 1 [facility] mcg tablet 9-10 9103 tablet by ity of 00:00: mouth [place] 00 daily. Medical Branch rOPINIRole 2018-0 Yes [id number] 2mg Take 1 [facility] 2 mg tablet 9-10 9103 tablet by ity of 00:00: mouth 2 (two) Medical times Branch daily. apixaban 2019-0 Yes [id number] 5mg Take 1 [facility] (ELIQUIS) 5 9-10 9103 tablet by ity of mg tablet 00:00: mouth 2 00 (two) Medical times Branch daily. atorvastati 2019-0 Yes [id number] 40mg Take 1 [facility] n (LIPITOR) 9-10 9103 tablet by ity of 40 mg 00:00: mouth at [place] tablet 00 bedtime. Medical Branch gabapentin 2019-0 Yes [id number] 300mg Take 1 [facility] 300 mg 9-10 9100 capsule by ity of capsule 00:00: mouth 2 (two) Medical times Branch daily. omeprazole 2019-0 Yes [id number] 40mg Take 1 [facility] 40 mg 9-10 9100 capsule by ity of capsule 00:00: mouth [place] 00 daily. Medical Branch carvedilol 2019-0 Yes [id number] 25mg Take 1 [facility] 25 mg 9-10 9103 tablet by ity of tablet 00:00: mouth 2 00 (two) Medical times Branch daily with meals. digoxin 125 2019-0 Yes [id number] 125ug Take 1 [facility] mcg tablet 9-10 9103 tablet by ity of 00:00: mouth [place] 00 daily. Medical Branch rOPINIRole 2019-0 Yes [id number] 2mg Take 1 [facility] 2 mg tablet 9-10 9103 tablet by ity of 00:00: mouth 2 00 (two) Medical times Branch daily. apixaban 2019-0 Yes [id number] 5mg Take 1 [facility] (ELIQUIS) 5 9-10 9103 tablet by ity of mg tablet 00:00: mouth 2 00 (two) Medical times Branch daily. atorvastati 2019-0 Yes [id number] 40mg Take 1 [facility] n (LIPITOR) 9-10 9103 tablet by ity of 40 mg 00:00: mouth at [place] tablet 00 bedtime. Medical Branch apixaban 2019-0 Yes [id number] 5mg Take 1 [facility] (ELIQUIS) 5 9-10 9103 tablet by ity of mg tablet 00:00: mouth 2 00 (two) Medical times Branch daily. atorvastati 2019-0 Yes [id number] 40mg Take 1 [facility] n (LIPITOR) 9-10 9103 tablet by ity of 40 mg 00:00: mouth at [place] tablet 00 bedtime. Medical Branch gabapentin 2019-0 Yes [id number] 300mg Take 1 [facility] 300 mg 9-10 9100 capsule by ity of capsule 00:00: mouth 2 00 (two) Medical times Branch daily. omeprazole 2019-0 Yes [id number] 40mg Take 1 [facility] 40 mg 9-10 9100 capsule by ity of capsule 00:00: mouth [place] 00 daily. Medical Branch carvedilol 2019-0 Yes [id number] 25mg Take 1 [facility] 25 mg 9-10 9103 tablet by ity of tablet 00:00: mouth 2 00 (two) Medical times Branch daily with meals. gabapentin 2019-0 Yes [id number] 300mg Take 1 [facility] 300 mg 9-10 9100 capsule by ity of capsule 00:00: mouth 2 (two) Medical times Branch daily. digoxin 125 2019-0 Yes [id number] 125ug Take 1 [facility] mcg tablet 9-10 9103 tablet by ity of 00:00: mouth [place] 00 daily. Medical Branch rOPINIRole 2019-0 Yes [id number] 2mg Take 1 [facility] 2 mg tablet 9-10 9103 tablet by ity of 00:00: mouth 2 (two) Medical times Branch daily. omeprazole 2019-0 Yes [id number] 40mg Take 1 [facility] 40 mg 9-10 9100 capsule by ity of capsule 00:00: mouth [place] 00 daily. Medical Branch apixaban 2018- Yes [id number] 5mg Take 1 [facility] (ELIQUIS) 5 9-10 9103 tablet by ity of mg tablet 00:00: mouth 2 (two) Medical times Branch daily. atorvastati 2018- Yes [id number] 40mg Take 1 [facility] n (LIPITOR) 9-10 9103 tablet by ity of 40 mg 00:00: mouth at [place] tablet 00 bedtime. Medical Branch gabapentin 2018-0 Yes [id number] 300mg Take 1 [facility] 300 mg 9-10 9100 capsule by ity of capsule 00:00: mouth 2 (two) Medical times Branch daily. omeprazole 2019-0 Yes [id number] 40mg Take 1 [facility] 40 mg 9-10 9100 capsule by ity of capsule 00:00: mouth [place] 00 daily. Medical Branch carvedilol 2018- Yes [id number] 25mg Take 1 [facility] 25 mg 9-10 9103 tablet by ity of tablet 00:00: mouth 2 (two) Medical times Branch daily with meals. digoxin 125 2018-0 Yes [id number] 125ug Take 1 [facility] mcg tablet 9-10 9103 tablet by ity of 00:00: mouth [place] 00 daily. Medical Branch carvedilol 2018-0 Yes [id number] 25mg Take 1 [facility] 25 mg 9-10 9103 tablet by ity of tablet 00:00: mouth 2 (two) Medical times Branch daily with meals. rOPINIRole 2018- Yes [id number] 2mg Take 1 [facility] 2 mg tablet 9-10 9103 tablet by ity of 00:00: mouth 2 (two) Medical times Branch daily. digoxin 125 2019-0 Yes [id number] 125ug Take 1 [facility] mcg tablet 9-10 9103 tablet by ity of 00:00: mouth [place] 00 daily. Medical Branch rOPINIRole 2018-0 Yes [id number] 2mg Take 1 [facility] 2 mg tablet 9-10 9103 tablet by ity of 00:00: mouth 2 (two) Medical times Branch daily. apixaban 2018- Yes [id number] 5mg Take 1 [facility] (ELIQUIS) 5 9-10 9103 tablet by ity of mg tablet 00:00: mouth 2 (two) Medical times Branch daily. atorvastati 2018- Yes [id number] 40mg Take 1 [facility] n (LIPITOR) 9-10 9103 tablet by ity of 40 mg 00:00: mouth at [place] tablet 00 bedtime. Medical Branch gabapentin 2018- Yes [id number] 300mg Take 1 [facility] 300 mg 9-10 9100 capsule by ity of capsule 00:00: mouth (two) Medical times Branch daily. omeprazole 2018-0 Yes [id number] 40mg Take 1 [facility] 40 mg 9-10 9100 capsule by ity of capsule 00:00: mouth 00 daily. Medical Branch carvedilol 2018- Yes [id number] 25mg Take 1 [facility] 25 mg 9-10 9103 tablet by ity of tablet 00:00: mouth (two) Medical times Branch daily with meals. digoxin 125 2018-0 Yes [id number] 125ug Take 1 [facility] mcg tablet 9-10 9103 tablet by ity of 00:00: mouth 00 daily. Medical Branch rOPINIRole 2018-0 Yes [id number] 2mg Take 1 [facility] 2 mg tablet 9-10 9103 tablet by ity of 00:00: mouth 2 (two) Medical times Branch daily. apixaban 2018-0 Yes [id number] 5mg Take 1 [facility] (ELIQUIS) 5 9-10 9103 tablet by ity of mg tablet 00:00: mouth 2 (two) Medical times Branch daily. atorvastati 2018-0 Yes [id number] 40mg Take 1 [facility] n (LIPITOR) 9-10 9103 tablet by ity of 40 mg 00:00: mouth at [place] tablet 00 bedtime. Medical Branch gabapentin 2018-0 Yes [id number] 300mg Take 1 [facility] 300 mg 03-1800 capsule by ity of capsule 00:00: mouth 2 [place] 00 (two) Medical times Branch daily. aztreonam 1 2019- No [id number] 500mg Infuse 500 [facility] gram 03-18 9100 mg every 8 ity of injection 00:00: 04:59 (eight) [place] 00 :[place] hours for Medical 7 days. Branch aztreonam 1 2019- No [id number] 500mg Infuse 500 [facility] gram 03-18 9100 mg every 8 ity of injection 00:00: 04:59 (eight) [place] 00 :[place] hours for Medical 7 days. Branch fluticasone Yes 1{spray 1 [place], [facility] propionate 03-17 } Nasal, ity of 50 14:00: DAILY, [place] mcg/actuati 00 First dose Me dical on nasal on Mon Branch spray 1 03/17/19 at [place] 0900, Until Discontinu ed, Routine Polyethylen Yes 17g 17 g, Unive rs e Glycol 03-17 Oral, ity of 3350 02:00: DAILY, [place] (MIRALAX) 00 First dose Medi micky powder 17 g on Sun Branch 03/16/19 at 2100, Until Discontinu ed, Routine phenol Yes 1{spray 1 [place], Univ ers (SORE 03-16 } Oral, PRN, ity of THROAT 22:22: Starting [place] (PHENOL)) 21 03/16/19 Medi micky 1.4 % spray at 1722, Bran ch bottle 1 Until [place] Discontinu ed, Routine, Oral mucositis insulin 2019- Yes 12U 12 Units, Unive rs glargine 03-16 Subcutaneo ity o f (LANTUS 02:00: us, [facility], [place] U-100) 00 First dose Medical injection on Sat Branch 12 Units 03/15/19 at 2100, Until Discontinu ed, Routine insulin 2019- Yes 5U 5 Units, Univer s glargine 03-15 Subcutaneo ity o f (LANTUS 14:00: us, DAILY, [facility] U-100) 00 First dose Medical injection 5 on Sat Branch Units 03/15/19 at 0900, Until Discontinu ed, Routine ketorolac 2018- 2019- No 30mg 30 mg, Unive rs (TORADOL) 03-13 Slow IV ity of injection 21:15: 21:15 Push, [place] 30 mg 00 :00 ONCE, 1 Medical dose, [facility] 03/13/19 at 1615, Routine
team member approving Restricted medication : CHUCKY ELKINS diphenhydrA 2018-0 Yes 25mg 25 mg, Univ ers MINE 03-13 Oral, ity of (BENADRYL) 21:12: Q4HPRN, [place] tablet 25 04 Starting Medica l mg [facility] 03/13/19 Branch at 1612, Until Discontinu ed, Routine, Itching, Mild Rash diphenhydrA 2019- No 25mg 25 mg, Uni vers MINE 03-13 Oral, ity of (BENADRYL) 10:09: 10:12 ONCE, 1 [place] as tablet 25 00 :00 dose, [facility] Medic al mg 03/13/19 at Branch 0515, Routine atorvastati 2018-0 Yes 40mg 40 mg, Univ ers n (LIPITOR) 03-12 Oral, QHS, it y of tablet 40 02:00: First dose [place] mg 00 on [facility] 03/11/19 at Branch 2100, Until Discontinu ed, Routine digoxin 2018-0 Yes 125ug 125 mcg, Unive rs (LANOXIN) 03-11 Oral, ity of tablet 125 14:00: DAILY, [place] mcg 00 First dose Medical on [facility] 03/11/19 at 0900, Until Discontinu ed, Routine omeprazole 2019-0 Yes 40mg 40 mg, Unive rs (PRILOSEC) 03-11 Oral, ity of capsule 40 14:00: DAILY, [place] mg 00 First dose Medical on [facility] 03/11/19 at 0900, Until Discontinu ed furosemide 2019-0 Yes 40mg 40 mg, Unive rs (LASIX) 03-11 Oral, ity of tablet 40 14:00: DAILY, [place] mg 00 First dose Medical on [facility] 03/11/19 at 0900, Until Discontinu ed, Routine carvedilol 2018-0 Yes 25mg 25 mg, Unive rs (COREG) 03-11 Oral, BID ity of tablet 25 13:00: MEALS, [place] mg 00 First dose Medical on [facility] Branch 03/11/19 at 0800, Until Discontinu ed, Routine apixaban 2019 Yes 5mg 5 mg, Univers (ELIQUIS) 03-11 Oral, BID, ity of tablet 5 mg 13:00: First dose on [facility] 03/11/19 at Branch 0800, Until Discontinu ed, Routine levalbutero 2019- No .63mg 0.63 mg, Univers l (XOPENEX) 03-11 Inhalation i ty of nebulizer 13:00: 15:44 , QID, [place] solution 00 :19 First dose Medic al 0.63 mg on [facility] 03/11/19 at 0800, Until Discontinu ed, Routine
Approved by: ADC PROVIDER fluticasone 2019- No 1{puff} 1 Puff, Univers propionate 03-11 Inhalation it y of (FLOVENT 13:00: 15:43 , Q12H, [place] HFA) 44 00 :54 First dose Medica l mcg/actuati on [place] on inhaler 03/11/19 at 1 Puff 0800, Until Discontinu ed Sliding Yes Subcutaneo Univ ers Scale 03-11 us, AC+HS, ity of Insulin-Reg 12:30: First dose [place] ular + Fsbg 00 on [facility] Medica l Testing 03/11/19 at Branch 0730, Until Discontinu ed, Routine pramipexole Yes 2mg 2 mg, Unive rs (MIRAPEX) 03-11 Oral, BID, ity of tablet 2 mg 07:00: First dose on [facility] 03/11/19 at Branch 0200, Until Discontinu ed
Facu lty member approving Restricted medication : TAINA CASTRO aztreonam Yes 500mg 500 mg, IV U nivers (AZACTAM) 03-11 Piggyback, ity of 500 mg in 04:15: Q8H ABX, [place] NaCl 0.9% 00 First dose Medi micky (NS) 50 mL on [facility] Branch IV 03/10/19 at Piggyback 2315, Until Discontinu ed, 50 mL
Reas on for Anti-Infec tive: Empiric Therapy for Suspected Infection< br>Empiric Therapy Site: Urine
D uration of therapy: 7 days insulin 2018-0 2019- No 15U 15 Units, [facility] ers glargine 03-11 09-07 Subcutaneo ity of (LANTUS 04:15: 13:32 us, QHS, [place] U-100) 00 :49 First dose Medical injection on Mon Branch 15 Units 03/10/19 at 2315, Until Discontinu ed, Routine hydralAZINE Yes 10mg 10 mg, Univ ers (APRESOLINE 03-11 Intravenou it y of ) injection 04:04: s, Q6HPRN, [place] 10 mg 27 Starting Medical 03/10/19 Branch at 2304, Until Discontinu ed, Routine, SBP > 160
Ind ication: Hypertensi ve Emergency gabapentin Yes 300mg 300 mg, Uni vers (NEURONTIN) 03-11 Oral, BID, it y of capsule 300 04:00: First dose [place] mg 00 on [facility] Medical 03/10/19 at Branch 2300, Until Discontinu ed, Routine dextrose Yes 250mL 250 mL, IV Un adali 10% (D10W) 03-11 Infusion, ity of bolus 03:23: PRN - SEE [place] infusion 42 INSTRUCTIO Medic al 250 mL NS, blood Branch glucose < 60, Starting 03/10/19 at 2223
Dextrose 10% 250 mL bag contains:& nbsp;10 gm = 100 mL 20 gm = 200 mL 25 gm = 250 mL (whole bag) The maximum rate at which dextrose can be infused without producing glycosuria is 0.5 g/kg/hour. &nbs p;BUD: If wrapper is open bag is good for 30 days at room temperatur e. <b r> glucagon Yes 1mg 1 mg, Univers (GLUCAGEN 03-11 Intramuscu ity of DIAGNOSTIC 03:23: lar, PRN, [place] KIT) 33 Starting Medical injection 1 Mon 03/10/19 Br anch mg at 2223, Until Discontinu ed, SELINA, Blood Glucose < or = 70 mg/dL and patient is unable to swallow or has mental changes. ondansetron 2019-0 Yes 4mg 4 mg, Slow Univers (ZOFRAN 03-11 IV Push, ity of (PF)) 03:14: Q6HPRN, [place] injection 4 56 Starting Medi micky mg 03/10/19 Branch at 2214, Until Discontinu ed, Routine, Nausea and Vomiting (N/V) acetaminoph 2019-0 Yes 650mg 650 mg, Un adali en 03-11 Oral, ity of (TYLENOL) 03:14: Q6HPRN, [place] tablet 650 44 Starting Medic al mg Sun03/10/19 Branch at 2214, Until Discontinu ed, Routine, Pain (scale 1-3) CYANOCOBALA 2019- No Take by Chaz BOWDEN, 03-11 mouth. ity of VITAMIN 03:12: 00:00 [place] B-12, 48 :00 Medical (VITAMIN Branch B-12 ORAL) Diflupredna 2019- No 1[drp] Place 1 Univers te 03-11 Drop in ity of (DUREZOL) 03:12: 00:00 each eye 4 [place] 0.05 % Drop 48 :00 (four) Medica l times Branch daily. traMADol 2019-0 Yes 50mg 50 mg, Univers (ULTRAM) 03-11 Oral, ity of tablet 50 03:12: BIDPRN, [place] mg 37 Starting Medical 03/10/19 Branch at 2212, Until Discontinu ed, Routine, Pain (scale 4-6), Pain (scale 7-10) meclizine 2019-0 Yes 25mg 25 mg, Univer s (TRAVEL-EAS 03-11 Oral, ity of E 03:06: TIDPRN, [place] (MECLIZINE) 28 Starting Medi micky ) tablet 25 Sun03/10/19 Br anch mg at 2206, Until Discontinu ed, Routine, Nausea gentamicin 2019- No 5mg/kg 390 mg (5 Univers injection 03-11 mg/kg ?78 ity of 390 mg 02:45: 02:08 kg), IV [place] 00 :00 Piggyback, Medical ONCE, 1 Branch dose, Sun03/10/19 at 2145, SELINA
Re ason for Anti-Infec tive: Documented Infection< br>Documen rayna Infection Site: Urine
D uration of Therapy: Other (see Comments) ondansetron 2018- No 4mg 4 mg, Slow Univers (ZOFRAN 03-11 IV Push, ity of (PF)) 02:00: 01:25 ONCE, 1 [place] injection 4 00 :00 dose, Mon Med ical mg 03/10/19 at Branch 2100, SELINA acetaminoph 2018- No 650mg 650 mg, U nivers en 03-11 Rectal, ity of (TYLENOL) 00:45: 00:22 ONCE, 1 [place] suppository 00 :00 dose, Mon Med ical 650 mg 03/10/19 at Branch 1945, SELINA ondansetron 2018- No 4mg 4 mg, Slow Univers (ZOFRAN 03-11 IV Push, ity of (PF)) 00:45: 00:22 ONCE, 1 [place] injection 4 00 :00 dose, Mon Med ical mg 03/10/19 at Branch 1945, SELINA NaCl 0.9% 2018- No 1000mL at 999 Uni vers (NS) bolus 03-10 mL/hr, ity of infusion 23:45: 00:22 1,000 mL, [place] as 1,000 mL 00 :00 IV Medical Infusion, [place] ONCE, 1 dose, 03/10/19 at 1845, SELINA gabapentin 2018- No 300mg Take 300 U nivers 300 mg 03-10 mg by ity of capsule 00:00: 00:00 mouth 2 [place] 00 :00 (two) Medical times Branch daily. carvedilol 2019- No [id number] 25mg Take 1 Univers 25 mg 11-06 9103 tablet by ity of tablet 00:00: 00:00 mouth 2 [place] 00 :00 (two) Medical times Branch daily with meals. linagliptin 2019- No [id number] 5mg Take 1 Univers (TRADJENTA) 11-06 9103 tablet by it y of 5 mg tablet 00:00: 00:00 mouth [place] 00 :00 daily. Medical Branch atorvastati 2018- No [id number] 40mg Take 1 Univers n (LIPITOR) 11-06 9103 tablet by it y of 40 mg 00:00: 00:00 mouth at [place] tablet 00 :00 bedtime. Medical Branch rOPINIRole 2018- No [id number] 2mg Take 1 [facility] 2 mg tablet 11-06 9103 tablet by it y of 00:00: 00:00 mouth 2 [place] 00 :00 (two) Medical times Branch daily. levalbutero 2018- No [id number] .63mg Inhale Univers l 0.63 mg/3 11-06 9103 0.63 mg 4 it y of mL 00:00: 00:00 (four) [place] nebulizer 00 :00 times Medical solution daily. Branch digoxin 125 2018- No [id number] 125ug Take 1 Univers mcg tablet 11-0603 tablet by ity of 00:00: 00:00 mouth [place] 00 :00 every 48 Medical (forty-eig Branch ) hours. apixaban 2018- No [id number] 5mg Take 1 Univers (ELIQUIS) 5 11-06 9103 tablet by it y of mg tablet 00:00: [place] (two[place] times Branch daily. insulin 2018- No [id number] 20U inject 20 Univers glargine 11-0603 Units ity of 100 unit/mL 00:00: 00:00 under the [place] injection 00 :00 skin at Medical bedtime. Branch furosemide 2018- No [id number] 40mg Take 1 Univers 40 mg 11-0603 tablet by ity of tablet 00:00: 00:00 mouth [place] 00 :00 daily. Medical Branch magnesium 2018- No [id number] 800mg Take 2 Univers oxide 400 11-06 9103 tablets by ity of mg (241.3 00:00: 00:[place] mg 00 :00 (two) Medical magnesium) times Branch tablet daily. traMADOL 50 2018- Yes 50mg Take 1 Univ ers mg tablet 1-03 tablet by ity o f 00:00: mouth 2 [place] 00 (two) Medical times Branch daily as needed for Pain (scale 4-6) or Pain (scale 7-10). traMADOL 50 2019-0 Yes 50mg Take 1 Univ ers mg tablet 1-03 tablet by ity o f 00:00: mouth 2 (two) Medical times Branch daily as needed for Pain (scale 4-6) or Pain (scale 7-10). diphenhydrA 2019-0 2019- No 25mg Take 1 Uni vers MINE 25 mg -09 14- tablet by ity of tablet 00:00: 00:00 mouth 3 [place] 00 :00 (three) Medical times Branch daily as needed for Itching or Allergies. meclizine 2018-0 Yes 25mg Take 1 Univer s 25 mg 5-17 tablet by ity of tablet 00:00: mouth 3 (three) Medical times Branch daily as needed for Nausea. meclizine 2018-0 Yes 25mg Take 1 Univer s 25 mg 5-17 tablet by ity of tablet 00:00: mouth 3 (three) Medical times Branch daily as needed for Nausea. meclizine 2018-0 Yes 25mg Take 1 Univer s 25 mg 5-17 tablet by ity of tablet 00:00: mouth 3 (three) Medical times Branch daily as needed for Nausea. meclizine 2018-0 Yes 25mg Take 1 Univer s 25 mg 5-17 tablet by ity of tablet 00:00: mouth 3 (three) Medical times Branch daily as needed for Nausea. meclizine 2018-0 Yes 25mg Take 1 Univer s 25 mg 5-17 tablet by ity of tablet 00:00: mouth 3 (three) Medical times Branch daily as needed for Nausea. meclizine 2018-0 Yes 25mg Take 1 Univer s 25 mg 5-17 tablet by ity of tablet 00:00: mouth 3 (three) Medical times Branch daily as needed for Nausea. meclizine 2018-0 Yes 25mg Take 1 Univer s 25 mg 5-17 tablet by ity of tablet 00:00: mouth 3 (three) Medical times Branch daily as needed for Nausea. meclizine 2018-0 Yes 25mg Take 1 Univer s 25 mg 5-17 tablet by ity of tablet 00:00: mouth 3 (three) Medical times Branch daily as needed for Nausea. meclizine 2018-0 Yes 25mg Take 1 Univer s 25 mg 5-17 tablet by ity of tablet 00:00: mouth (three) Medical times Branch daily as needed for Nausea. meclizine 2018-0 Yes 25mg Take 1 Univer s 25 mg 5-17 tablet by ity of tablet 00:00: mouth (three) Medical times Branch daily as needed for Nausea. meclizine 2018-0 Yes 25mg Take 1 Univer s 25 mg 5-17 tablet by ity of tablet 00:00: mouth (three) Medical times Branch daily as needed for Nausea. meclizine 2018-0 Yes 25mg Take 1 Univer s 25 mg 5-17 tablet by ity of tablet 00:00: mouth (three) Medical times Branch daily as needed for Nausea. meclizine 2018-0 Yes 25mg Take 1 Univer s 25 mg 5-17 tablet by ity of tablet 00:00: mouth (three) Medical times Branch daily as needed for Nausea. meclizine 2018-0 Yes 25mg Take 1 Univer s 25 mg 5-17 tablet by ity of tablet 00:00: mouth (three) Medical times Branch daily as needed for Nausea. meclizine 2018-0 Yes 25mg Take 1 Univer s 25 mg 5-17 tablet by ity of tablet 00:00: mouth (three) Medical times Branch daily as needed for Nausea. meclizine 2018-0 Yes 25mg Take 1 Univer s 25 mg 5-17 tablet by ity of tablet 00:00: mouth (three) Medical times Branch daily as needed for Nausea. meclizine 2018-0 Yes 25mg Take 1 Univer s 25 mg 5-17 tablet by ity of tablet 00:00: mouth (three) Medical times Branch daily as needed for Nausea. meclizine 2018-0 Yes 25mg Take 1 Univer s 25 mg 5-17 tablet by ity of tablet 00:00: mouth (three) Medical times Branch daily as needed for Nausea. meclizine 2018-0 Yes 25mg Take 1 Univer s 25 mg 5-17 tablet by ity of tablet 00:00: mouth (three) Medical times Branch daily as needed for Nausea. meclizine 2018-0 Yes 25mg Take 1 Univer s 25 mg 5-17 tablet by ity of tablet 00:00: mouth 3 [place] 00 (three) Medical times Branch daily as needed for Nausea. meclizine 2018-0 Yes 25mg Take 1 Univer s 25 mg 5-17 tablet by ity of tablet 00:00: mouth 3 [place] 00 (three) Medical times Branch daily as needed for Nausea. meclizine 2018-0 Yes 25mg Take 1 Univer s 25 mg 5-17 tablet by ity of tablet 00:00: mouth 3 00 (three) Medical times Branch daily as needed for Nausea. meclizine 2018-0 Yes 25mg Take 1 Univer s 25 mg 5-17 tablet by ity of tablet 00:00: mouth 3 00 (three) Medical times Branch daily as needed for Nausea. meclizine 2017-2020- No 25mg Take 1 Unive rs 25 mg 5-17 09-15 tablet by ity of tablet 00:00: 00:00 mouth 3 [place] 00 :00 (three) Medical times Branch daily as needed for Nausea. meclizine 2017-2020- No 25mg Take 1 Unive rs 25 mg 5-17 09-15 tablet by ity of tablet 00:00: 00:00 mouth 3 [place] 00 :00 (three) Medical times Branch daily as needed for Nausea. amlodipine amlodipine No 1 Q1D amlodipine [facility] 5 mg tablet 5 mg tablet 5 mg F amily Take 1 Take 1 tablet Practic tablet tablet Take 1 e every day every day tablet by oral by oral every day route. route. by oral route. atorvastati atorvastati No 1 Q1D atorvastat [facility] n 40 mg n 40 mg in 40 mg Famil y tablet Take tablet Take tablet Practic 1 tablet 1 tablet Take 1 e every day every day tablet by oral by oral every day route. route. by oral route. Becky Pena No 18unit( Q1D [facility] KwikPen KwikPen s) KwikPen Family U-100 U-100 U-100 Practic Insulin 100 Insulin 100 Insulin e unit/mL (3 unit/mL (3 100 mL) mL) unit/mL (3 subcutaneou subcutaneou mL) s Inject 18 s Inject 18 subcutaneo units every units every us Inject day by day by 18 units subcutaneou subcutaneou every day s route. s route. by subcutaneo us route. carvedilol carvedilol No 1 BID carvedilol [facility] 25 mg 25 mg 25 mg Family tablet Take tablet Take tablet Practic 1 tablet 1 tablet Take 1 e twice a day twice a day tablet by oral by oral twice a route. route. day by oral route. clonidine clonidine No 1 clonidine [facility] HCl 0.1 mg HCl 0.1 mg HCl 0.1 mg Family tablet Take tablet Take tablet Practic 1 tablet as 1 tablet as Take 1 e needed by needed by tablet as oral route. oral route. needed by oral route. Eliquis 5 Eliquis 5 No 1 BID Eliquis 5 [place] mg tablet mg tablet mg tablet Family Take 1 Take 1 Take 1 Practic tablet tablet tablet e twice a day twice a day twice a by oral by oral day by route. route. oral route. furosemide furosemide No 1 Q1D furosemide [facility] 40 mg 40 mg 40 mg Family tablet Take tablet Take tablet Practic 1 tablet 1 tablet Take 1 e every day every day tablet by oral by oral every day route. route. by oral route. gabapentin gabapentin No 1capsul TID gabapentin [facility] 300 mg 300 mg e(s) 300 mg Family capsule capsule capsule Practi c Take 1 Take 1 Take 1 e capsule 3 capsule 3 capsule 3 times a day times a day times a by oral by oral day by route. route. oral route. omeprazole omeprazole No 1capsul Q1D omeprazole [facility] 40 mg 40 mg e(s) 40 mg Family capsule,del capsule,del capsule,de Practic ayed ayed layed e release release release Take 1 Take 1 Take 1 capsule capsule capsule every day every day every day by oral by oral by oral route. route. route. Immunizations Ordered Filled Immunization Date Status Comments [facility] e Immunization Name Name SARS-COV-2 COVID-19 2020-10-18 Completed [facility] VACCINE 00:00:00 [facility] SARS-COV-2 COVID-19 2020-10-18 Completed [facility] [place] VACCINE 00:00:00 [facility] SARS-COV-2 COVID-19 2020-10-18 Completed [facility] [place] VACCINE 00:00:00 [facility] SARS-COV-2 COVID-19 2020-10-18 Completed Unive rsity of PFIZER VACCINE 00:00:00 [facility] SARS-COV-2 COVID-19 2020-10-18 Completed Unive rsity of PFIZER VACCINE 00:00:00 [facility] SARS-COV-2 COVID-19 2020-10-18 Completed Unive rsity of PFIZER VACCINE 00:00:00 [facility] Branch SARS-COV-2 COVID-19 2020-10-18 Completed Unive rsity of PFIZER VACCINE 00:00:00 [facility] Branch SARS-COV-2 COVID-19 2020-10-18 Completed Unive rsity of PFIZER VACCINE 00:00:00 [facility] Branch SARS-COV-2 COVID-19 2020-10-18 Completed Unive rsity of PFIZER VACCINE 00:00:00 [facility] Branch SARS-COV-2 COVID-19 2020-10-18 Completed Unive rsity of PFIZER VACCINE 00:00:00 [facility] Branch SARS-COV-2 COVID-19 2020-10-18 Completed Unive rsity of PFIZER VACCINE 00:00:00 [facility] Branch SARS-COV-2 COVID-19 2020-10-18 Completed Unive rsity of PFIZER VACCINE 00:00:00 [facility] Branch SARS-COV-2 COVID-19 2020-10-18 Completed Unive rsity of PFIZER VACCINE 00:00:00 [facility] SARS-COV-2 COVID-19 2020-10-18 Completed Unive rsity of PFIZER VACCINE 00:00:00 [facility] SARS-COV-2 COVID-19 2020-10-18 Completed Unive rsity of PFIZER VACCINE 00:00:00 [facility] Branch SARS-COV-2 COVID-19 2020-10-18 Completed Unive rsity of PFIZER VACCINE 00:00:00 [facility] Branch SARS-COV-2 COVID-19 2020-10-18 Completed Unive rsity of PFIZER VACCINE 00:00:00 [facility] SARS-COV-2 COVID-19 2020-09-27 Completed Unive rsity of PFIZER VACCINE 00:00:00 [facility] SARS-COV-2 COVID-19 2020-09-27 Completed Unive rsity of PFIZER VACCINE 00:00:00 [facility] SARS-COV-2 COVID-19 2020-09-27 Completed Unive rsity of PFIZER VACCINE 00:00:00 [facility] SARS-COV-2 COVID-19 2020-09-27 Completed Unive rsity of PFIZER VACCINE 00:00:00 [facility] SARS-COV-2 COVID-19 2020-09-27 Completed Unive rsity of PFIZER VACCINE 00:00:00 [facility] SARS-COV-2 COVID-19 2020-09-27 Completed Unive rsity of PFIZER VACCINE 00:00:00 [facility] SARS-COV-2 COVID-19 2020-09-27 Completed Unive rsity of PFIZER VACCINE 00:00:00 [facility] SARS-COV-2 COVID-19 2020-09-27 Completed Unive rsity of PFIZER VACCINE 00:00:00 [facility] SARS-COV-2 COVID-19 2020-09-27 Completed Unive rsity of PFIZER VACCINE 00:00:00 [facility] SARS-COV-2 COVID-19 2020-09-27 Completed Unive rsity of PFIZER VACCINE 00:00:00 [facility] SARS-COV-2 COVID-19 2020-09-27 Completed Unive rsity of PFIZER VACCINE 00:00:00 [facility] SARS-COV-2 COVID-19 2020-09-27 Completed Unive rsity of PFIZER VACCINE 00:00:00 [facility] SARS-COV-2 COVID-19 2020-09-27 Completed Unive rsity of PFIZER VACCINE 00:00:00 [facility] SARS-COV-2 COVID-19 2020-09-27 Completed Unive rsity of PFIZER VACCINE 00:00:00 [facility] SARS-COV-2 COVID-19 2020-09-27 Completed Unive rsity of PFIZER VACCINE 00:00:00 [facility] SARS-COV-2 COVID-19 2020-09-27 Completed Unive rsity of PFIZER VACCINE 00:00:00 [facility] SARS-COV-2 COVID-19 2020-09-27 Completed Unive rsity of PFIZER VACCINE 00:00:00 [facility] Influenza Virus 2018-04-22 Completed Universit y of Vaccine 00:00:00 [facility] Influenza Virus 2018-04-22 Completed Universit y of Vaccine 00:00:00 [facility] Influenza Virus 2018-04-22 Completed Universit y of Vaccine 00:00:00 [facility] Influenza Virus 2018-04-22 Completed Universit y of Vaccine 00:00:00 [facility] Influenza Virus 2018-04-22 Completed Universit y of Vaccine 00:00:00 [facility] Influenza Virus 2018-04-22 Completed Universit y of Vaccine 00:00:00 [facility] Influenza Virus 2018-04-22 Completed Universit y of Vaccine 00:00:00 [facility] Influenza Virus 2018-04-22 Completed Universit y of Vaccine 00:00:00 [facility] Influenza Virus 2018-04-22 Completed Universit y of Vaccine 00:00:00 [facility] Influenza Virus 2018-04-22 Completed Universit y of Vaccine 00:00:00 [facility] Influenza Virus 2018-04-22 Completed Universit y of Vaccine 00:00:00 [facility] Influenza Virus 2018-04-22 Completed Universit y of Vaccine 00:00:00 [facility] Influenza Virus 2018-04-22 Completed Universit y of Vaccine 00:00:00 [facility] Influenza Virus 2018-04-22 Completed Universit y of Vaccine 00:00:00 [facility] Influenza Virus 2018-04-22 Completed Universit y of Vaccine 00:00:00 [facility] Influenza Virus 2018-04-22 Completed Universit y of Vaccine 00:00:00 [facility] Influenza Virus 2018-04-22 Completed Universit y of Vaccine 00:00:00 [facility] Influenza Virus 2018-04-22 Completed Universit y of Vaccine 00:00:00 [facility] Influenza Virus 2018-04-22 Completed Universit y of Vaccine 00:00:00 [facility] Influenza Virus 2018-04-22 Completed Universit y of Vaccine 00:00:00 [facility] Influenza Virus 2018-04-22 Completed Universit y of Vaccine 00:00:00 [facility] Influenza Virus 2018-04-22 Completed Universit y of Vaccine 00:00:00 [facility] Influenza Virus 2018-04-22 Completed Universit y of Vaccine 00:00:00 [facility] Influenza Virus 2018-04-22 Completed Universit y of Vaccine 00:00:00 [facility] Influenza Virus 2018-04-22 Completed Universit y of Vaccine 00:00:00 [facility] Influenza Virus 2018-04-22 Completed Universit y of Vaccine 00:00:00 [facility] Influenza Virus 2018-04-22 Completed Universit y of Vaccine 00:00:00 [facility] Influenza Virus 2018-04-22 Completed Universit y of Vaccine 00:00:00 [facility] Influenza Virus 2018-04-22 Completed Universit y of Vaccine 00:00:00 [facility] Pneumococcal 2017-07-23 Completed University o f Polysaccharide, 00:00:00 [place] Med ical PPSV23 (PNEUMOVAX) Branch Pneumococcal 2017-07-23 Completed University o f Polysaccharide, 00:00:00 [place] Med ical PPSV23 (PNEUMOVAX) Branch Pneumococcal 2017-07-23 Completed University o f Polysaccharide, 00:00:00 [place] Med ical PPSV23 (PNEUMOVAX) Branch Pneumococcal 2017-07-23 Completed University o f Polysaccharide, 00:00:00 [place] Med ical PPSV23 (PNEUMOVAX) Branch Pneumococcal 2017-07-23 Completed University o f Polysaccharide, 00:00:00 [place] Med ical PPSV23 (PNEUMOVAX) Branch Pneumococcal 2017-07-23 Completed University o f Polysaccharide, 00:00:00 [place] Med ical PPSV23 (PNEUMOVAX) Branch Pneumococcal 2017-07-23 Completed University o f Polysaccharide, 00:00:00 [place] Med ical PPSV23 (PNEUMOVAX) Branch Pneumococcal 2017-07-23 Completed University o f Polysaccharide, 00:00:00 [place] Med ical PPSV23 (PNEUMOVAX) Branch Pneumococcal 2017-07-23 Completed University o f Polysaccharide, 00:00:00 [place] Med ical PPSV23 (PNEUMOVAX) Branch Pneumococcal 2017-07-23 Completed University o f Polysaccharide, 00:00:00 [place] Med ical PPSV23 (PNEUMOVAX) Branch Pneumococcal 2017-07-23 Completed University o f Polysaccharide, 00:00:00 [place] Med ical PPSV23 (PNEUMOVAX) Branch Pneumococcal 2017-07-23 Completed University o f Polysaccharide, 00:00:00 [place] Med ical PPSV23 (PNEUMOVAX) Branch Pneumococcal 2017-07-23 Completed University o f Polysaccharide, 00:00:00 [place] Med ical PPSV23 (PNEUMOVAX) Branch Pneumococcal 2017-07-23 Completed University o f Polysaccharide, 00:00:00 [place] Med ical PPSV23 (PNEUMOVAX) Branch Pneumococcal 2017-07-23 Completed University o f Polysaccharide, 00:00:00 [place] Med ical PPSV23 (PNEUMOVAX) Branch Pneumococcal 2017-07-23 Completed University o f Polysaccharide, 00:00:00 [place] Med ical PPSV23 (PNEUMOVAX) Branch Pneumococcal 2017-07-23 Completed University o f Polysaccharide, 00:00:00 [place] Med ical PPSV23 (PNEUMOVAX) Branch Pneumococcal 2017-07-23 Completed University o f Polysaccharide, 00:00:00 [place] Med ical PPSV23 (PNEUMOVAX) Branch Pneumococcal 2017-07-23 Completed University o f Polysaccharide, 00:00:00 [place] Med ical PPSV23 (PNEUMOVAX) Branch Pneumococcal 2017-07-23 Completed University o f Polysaccharide, 00:00:00 [place] Med ical PPSV23 (PNEUMOVAX) Branch Pneumococcal 2017-07-23 Completed University o f Polysaccharide, 00:00:00 [place] Med ical PPSV23 (PNEUMOVAX) Branch Pneumococcal 2017-07-23 Completed University o f Polysaccharide, 00:00:00 [place] Med ical PPSV23 (PNEUMOVAX) Branch Pneumococcal 2017-07-23 Completed University o f Polysaccharide, 00:00:00 [place] Med ical PPSV23 (PNEUMOVAX) Branch Pneumococcal 2017-07-23 Completed University o f Polysaccharide, 00:00:00 [place] Med ical PPSV23 (PNEUMOVAX) Branch Pneumococcal 2017-07-23 Completed University o f Polysaccharide, 00:00:00 [place] Med ical PPSV23 (PNEUMOVAX) Branch Pneumococcal 2017-07-23 Completed University o f Polysaccharide, 00:00:00 [place] Med ical PPSV23 (PNEUMOVAX) Branch Pneumococcal 2017-07-23 Completed University o f Polysaccharide, 00:00:00 [place] Med ical PPSV23 (PNEUMOVAX) Branch Pneumococcal 2017-07-23 Completed University o f Polysaccharide, 00:00:00 [place] Med ical PPSV23 (PNEUMOVAX) Branch Pneumococcal 2017-07-23 Completed University o f Polysaccharide, 00:00:00 [place] Med ical PPSV23 (PNEUMOVAX) Branch Vital Signs Vital Name Observation Time Observation Value Comments Source Systolic blood 2021-04-06 17:00:00 114 mm[Hg] Univer sity of pressure [place] [facility] Diastolic blood 2021-04-06 17:00:00 55 mm[Hg] Unive rsity of pressure [place] [facility] Heart rate 2021-04-06 17:00:00 60 /min [facility] [place] [facility] Body temperature 2021-04-06 17:00:00 36.67 Kourtney Univ ers[facility] [place] [facility] Respiratory rate 2021-04-06 17:00:00 16 /min [facility] ers[facility] [place] [facility] Oxygen saturation in 2021-04-06 17:00:00 98 /min University of Arterial blood by [place] [email or web address] micky Pulse oximetry Branch Body height 2021-04-06 13:02:54 170.2 cm [facility] [place] [facility] Body weight 2021-04-06 13:02:54 86.637 kg [facility] [place] [facility] BMI 2021-04-06 13:02:54 29.91 kg/m2 [facility] [place] [facility] Systolic blood 2021-03-29 16:00:00 126 mm[Hg] Univer sity of pressure [place] [facility] Diastolic blood 2021-03-29 16:00:00 83 mm[Hg] Unive rsity of pressure [place] [facility] Heart rate 2021-03-29 16:00:00 68 /min [facility] [place] [facility] Body temperature 2021-03-29 16:00:00 35.56 Kourtney [facility] [place] [facility] Respiratory rate 2021-03-29 16:00:00 26 /min [facility] [place] [facility] Oxygen saturation in 2021-03-29 16:00:00 83 /min University of Arterial blood by [facility] Pulse oximetry Branch Body weight 2021-03-26 09:11:00 86.909 kg [facility] [place] [facility] BMI 2021-03-26 09:11:00 30.01 kg/m2 [facility] [place] [facility] Body height 2021-03-23 20:50:00 170.2 cm [facility] [place] [facility] Systolic blood 2021-03-17 20:36:00 155 mm[Hg] Univer sity of pressure [place] [facility] Diastolic blood 2021-03-17 20:36:00 82 mm[Hg] Unive rsity of pressure [place] [facility] Heart rate 2021-03-17 20:32:00 87 /min [facility] [place] [facility] Body temperature 2021-03-17 20:32:00 36.22 Kourtney [facility] [place] [facility] Respiratory rate 2021-03-17 20:32:00 17 /min [facility] [place] [facility] Oxygen saturation in 2021-03-17 20:32:00 94 /min University of Arterial blood by [facility] Pulse oximetry Branch Body height 2021-03-16 23:00:00 170.2 cm [facility] [place] [facility] Body weight 2021-03-16 23:00:00 95.981 kg [facility] [place] [facility] BMI 2021-03-16 23:00:00 33.14 kg/m2 [facility] [place] [facility] [place] Height 2020-03-22 00:00:00 67 [in_i] [facility] Height 2020-02-18 00:00:00 67 [in_i] [facility] Height 2019-12-18 00:00:00 67 [in_i] [facility] BMI (Body Mass 2019-12-18 00:00:00 27.4 kg/m2 [facility] Body Weight 2019-12-18 00:00:00 175 [lb_av] [facility] Body height 2019-08-14 16:46:00 170.2 cm [facility] [place] [facility] [place] Body weight 2019-08-14 16:46:00 78.019 kg [facility] [place] [facility] BMI 2019-08-14 16:46:00 26.94 kg/m2 [facility] Systolic blood 2019-03-18 20:40:00 144 mm[Hg] Univer sity of pressure [place] [facility] Diastolic blood 2019-03-18 20:40:00 73 mm[Hg] Unive rsity of pressure [place] [facility] Heart rate 2019-03-18 20:40:00 85 /min [facility] [place] [facility] [place] Body temperature 2019-03-18 20:40:00 37 Kourtney [facility] [place] [facility] Respiratory rate 2019-03-18 20:40:00 20 /min [facility] [place] [facility] [place] Oxygen saturation in 2019-03-18 20:40:00 95 /min University of Arterial blood by [place] [email or web address] [facility] Pulse oximetry Branch Body height 2019-03-11 02:48:00 170.2 cm [facility] Body weight 2019-03-11 02:48:00 81.647 kg [facility] BMI 2019-03-11 02:48:00 28.19 kg/m2 [facility] Procedures Procedure Date / Time Performing Clinician Source Performed EXTERNAL PROVIDER 2021-04-20 05:01:00 Doctor Unassigned, No [facility] RECORDS Name Medical [place] ED LACERATION REPAIR 2021-04-06 14:26:04 Winifred Gill [facility] CT TRAUMA HEAD WO 2021-04-06 13:33:06 Barney Bland [facility] CONTRAST [facility] CT TRAUMA CERVICAL SPINE 2021-04-06 13:33:06 [facility]land [facility] WO CONTRAST [facility] XR CHEST 1 VW 2021-04-06 13:20:21 Barney Bland [facility] XR KNEE 3 VW BILATERAL 2021-04-06 13:20:21 Barney Bland [facility] COMP. METABOLIC PANEL 2021-04-06 13:13:00 Barney Bland [facility] ([id number]) [facility] CBC WITH DIFF 2021-04-06 13:13:00 Barney Bland [facility] PROTHROMBIN TIME / INR 2021-04-06 13:13:00 Barney Bland [facility] HB ABO GROUPING 2021-04-06 13:11:00 Barney Bland [facility] POCT GLUCOSE (AUTOMATED) 2021-03-29 16:36:00 Jad Gavin [facility] POCT GLUCOSE (AUTOMATED) 2021-03-29 12:42:00 Jad Gavin [facility] URINALYSIS 2021-03-29 09:49:00 Lindsey Olson [facility] OSMOLALITY URINE 2021-03-29 09:48:00 Lindsey Olson [facility] PHOSPHORUS 2021-03-29 09:45:00 Lindsey Olson [facility] URIC ACID 2021-03-29 09:45:00 Lindsey Olson [facility] MAGNESIUM 2021-03-29 09:45:00 Lindsey Olson [facility] OSMOLALITY, SERUM OR 2021-03-29 09:45:00 Lindsey Olson [facility] PLASMA [facility] COMP. METABOLIC PANEL 2021-03-29 09:45:00 Lindsey Olson [facility] ([id number]) Medical Branch POCT GLUCOSE (AUTOMATED) 2021-03-29 01:21:00 Jad Gavin [facility] POCT GLUCOSE (AUTOMATED) 2021-03-28 21:38:00 Jad Gavin [facility] POCT GLUCOSE (AUTOMATED) 2021-03-28 16:39:00 Jad Gavin [facility] POCT GLUCOSE (AUTOMATED) 2021-03-28 12:21:00 Jad Gavin [facility] BASIC METABOLIC PANEL 2021-03-28 10:40:00 Jad Gavin [facility] (NA, K, CL, CO2, Medical Branch GLUCOSE, BUN, CREATININE, CA) CBC WITH DIFF 2021-03-28 10:40:00 Jad Gavin [facility] POCT GLUCOSE (AUTOMATED) 2021-03-28 01:57:00 Jad Gavin [facility] POCT GLUCOSE (AUTOMATED) 2021-03-27 22:18:00 Jad Gavin [facility] POCT GLUCOSE (AUTOMATED) 2021-03-27 16:41:00 Jad Gavin [facility] POCT GLUCOSE (AUTOMATED) 2021-03-27 12:57:00 Jad Gavin [facility] BASIC METABOLIC PANEL 2021-03-27 11:28:00 Jad Gavin [facility] (NA, K, CL, CO2, Medical Branch GLUCOSE, BUN, CREATININE, CA) CBC WITH DIFF 2021-03-27 11:28:00 Jad Gavin [facility] POCT GLUCOSE (AUTOMATED) 2021-03-27 00:56:00 [facility] POCT GLUCOSE (AUTOMATED) 2021-03-26 20:51:00 Jad Gavin [facility] POCT GLUCOSE (AUTOMATED) 2021-03-26 17:05:00 Jad Gavin [facility] versity [facility] POCT GLUCOSE (AUTOMATED) 2021-03-26 12:46:00 Jad Gavin [facility] POCT GLUCOSE (AUTOMATED) 2021-03-26 00:46:00 Jad Gavin [facility] versity [facility] POCT GLUCOSE (AUTOMATED) 2021-03-25 21:58:00 Jad [facility] POCT GLUCOSE (AUTOMATED) 2021-03-25 16:00:00 Jad Gavin [facility] POCT GLUCOSE (AUTOMATED) 2021-03-25 12:52:00 Jad Gavin [facility] BASIC METABOLIC PANEL 2021-03-25 10:20:00 Jad Gavin [facility] (NA, K, CL, CO2, Medical Branch GLUCOSE, BUN, CREATININE, CA) CBC WITH DIFF 2021-03-25 10:20:00 Jad Gavin [facility] POCT GLUCOSE (AUTOMATED) 2021-03-25 00:26:00 Jad Gavin [facility] POCT GLUCOSE (AUTOMATED) 2021-03-24 21:13:00 Jad Gavin [facility] POCT GLUCOSE (AUTOMATED) 2021-03-24 16:57:00 Jad Gavin [facility] POCT GLUCOSE (AUTOMATED) 2021-03-24 12:58:00 Jad Gavin [facility] POCT GLUCOSE (AUTOMATED) 2021-03-24 01:29:00 Jad Gavin [facility] POCT GLUCOSE (AUTOMATED) 2021-03-23 21:32:00 Jad Gavin [facility] MRSA / MSSA SCREEN BY 2021-03-23 20:46:00 Marisol Bella [facility] PCR, [facility] Branch URINALYSIS 2021-03-23 16:15:00 Singer [facility] CT CHEST PULMONARY 2021-03-23 15:50:42 Singer [facility] ANGIOGRAM Medical Branch TROPONIN I 2021-03-23 15:27:00 Singer [facility] COMP. METABOLIC PANEL 2021-03-23 15:27:00 Singer [facility] ([id number]) [facility] CBC WITH DIFF 2021-03-23 15:27:00 Singer [facility] N-TERMINAL PRO-BNP 2021-03-23 15:27:00 Singer [facility] EKG-12 LEAD 2021-03-23 15:24:20 Singer [facility] POCT GLUCOSE (AUTOMATED) 2021-03-17 22:19:00 [facility] (TTE[facility] 2021-03-17 19:57:00 [facility] COMPLETE W/ CONTRAST Medical [facility] POCT GLUCOSE (AUTOMATED) 2021-03-17 16:51:00 Cindy [facility] POCT GLUCOSE (AUTOMATED) 2021-03-17 13:12:00 Cindy [facility] CBC WITH DIFF 2021-03-17 09:46:00 Gillette [facility] MAGNESIUM 2021-03-17 09:45:00 Gillette, [facility] C-REACTIVE PROTEIN 2021-03-17 09:45:00 Cedrick Ojeda [facility] BASIC METABOLIC PANEL 2021-03-17 09:45:00 Leta [facility] (NA, K, CL, CO2, [facility] GLUCOSE, BUN, CREATININE, CA) POCT GLUCOSE (AUTOMATED) 2021-03-17 02:14:00 Cindy [facility] BASIC METABOLIC PANEL 2021-03-17 01:46:00 Gillette, [facility] (NA, K, CL, CO2, [facility] GLUCOSE, BUN, CREATININE, CA) PROTHROMBIN TIME / INR 2021-03-17 01:46:00 Gillette, [facility] LACTIC ACID WHOLE BLOOD 2021-03-17 01:46:00 [facility] PO[facility]SE (AUTOMATED) 2021-03-16 22:37:00 Gemma White Shanika [facility] XR CHEST 1 VW 2021-03-16 16:04:12 Andriy Pierson [facility] URINALYSIS 2021-03-16 16:01:00 Andriy Pierson [facility] PROCALCITONIN 2021-03-16 15:41:00 Andriy Pierson [facility] HB ECG ROUTINE & RHYTHM 2021-03-16 15:35:04 Andriy Pierson [facility] BLOOD CULTURE SCREEN 2021-03-16 15:32:00 [facility] L[facility] DEHYDROGENASE 2021-03-16 15:32:00 [facility] FERRITIN SERUM 2021-03-16 15:25:00 Andriy Pierson [facility] TROPONIN I 2021-03-16 15:25:00 Andriy Pierson [facility] COMP. METABOLIC PANEL 2021-03-16 15:25:00 Andriy Pierson [facility] ([id number]) [facility] CBC WITH DIFF 2021-03-16 15:25:00 Andriy Pierson [facility] GLYCOSYLATED HEMOGLOBIN 2021-03-16 15:25:00 Gillette [facility] (A1C) [facility] PROTHROMBIN TIME / INR 2021-03-16 15:25:00 Andriy Pierson [facility] D-DIMER 2021-03-16 15:25:00 Andriy Pierson [facility] FIBRINOGEN 2021-03-16 15:25:00 Andriy Pierson [facility] N-TERMINAL PRO-BNP 2021-03-16 15:25:00 Andriy Pierson [facility] LACTIC ACID WHOLE BLOOD 2021-03-16 15:24:00 Andriy Pierson [facility] CBC WITH DIFF 2021-01-22 15:25:00 Lindsey Olson [facility] ASSIGNMENT OF BENEFITS 2021-01-22 15:09:35 Doctor Unassigned, No General acute hospital ASSIGNMENT OF BENEFITS 2020-09-10 21:16:10 Doctor Unassigned, No General acute hospital MR BRAIN WO CONTRAST 2020-05-04 18:46:12 Requisition, Paper [facility] CONSENT/REFUSAL FOR 2020-05-04 17:42:43 Doctor Unassigned, No [facility] XR KNEE 3 VW RIGHT 2019-08-11 18:42:30 Jaiden Luna [facility] EXTERNAL PROVIDER 2019-07-31 06:01:00 Doctor Unassigned, No [facility] RECORDS Name [facility] AUTHORIZATION FOR 2019-07-03 06:01:00 Doctor Unassigned, No [facility] RELEASE OF PHI [facility] POCT GLUCOSE (AUTOMATED) 2019-03-18 16:30:00 Taina Castro [facility] POCT GLUCOSE (AUTOMATED) 2019-03-18 12:21:00 [facility] BASIC METABOLIC PANEL 2019-03-18 09:26:00 Ken Gomez [facility] (NA, K, CL, CO2, Medical [place] GLUCOSE, BUN, CREATININE, CA) POCT GLUCOSE (AUTOMATED) 2019-03-18 06:44:00 Taina Castro [facility] POCT GLUCOSE (AUTOMATED) 2019-03-18 01:38:00 Taina Castro [facility] XR CHEST 1 VW 2019-03-17 22:07:36 Ken Gomez Alva o f [facility] POCT GLUCOSE (AUTOMATED) 2019-03-17 21:58:00 Taina Castro [facility] POCT GLUCOSE (AUTOMATED) 2019-03-17 16:09:00 Taina Castro [facility] CBC WITH DIFFERENTIAL 2019-03-17 12:37:00 Chucky Elkins [facility] POCT GLUCOSE (AUTOMATED) 2019-03-17 12:37:00 Taina Castro [facility] BASIC METABOLIC PANEL 2019-03-17 12:36:00 Chucky Elkins [facility] (NA, K, CL, CO2, Medical Branch GLUCOSE, BUN, CREATININE, CA) POCT GLUCOSE (AUTOMATED) 2019-03-17 00:33:00 EdionweAngeliay [facility] [place] [facility] POCT GLUCOSE (AUTOMATED) 2019-03-16 21:30:00 Edionwe, [facility] [place] [facility] POCT GLUCOSE (AUTOMATED) 2019-03-16 16:25:00 Edionwe, Angeliay [facility] [place] [facility] XR FOOT 3+ VW RIGHT 2019-03-16 15:46:29 Chucky Elkins [facility] POCT GLUCOSE (AUTOMATED) 2019-03-16 12:35:00 Edionwe, [facility] [place] [facility] POCT GLUCOSE (AUTOMATED) 2019-03-16 00:28:00 Edionwe, [facility] [place] [facility] POCT GLUCOSE (AUTOMATED) 2019-03-15 21:50:00 Edionwe [facility] [place] [facility] POCT GLUCOSE (AUTOMATED) 2019-03-15 16:15:00 Edionwe, [facility] [place] [facility] POCT GLUCOSE (AUTOMATED) 2019-03-15 13:56:00 Edionwe, [facility] [place] [facility] POCT GLUCOSE (AUTOMATED) 2019-03-15 12:51:00 Edionwe, [facility] [place] [facility] POCT GLUCOSE (AUTOMATED) 2019-03-15 00:32:00 Edionwe, [facility] [place] [facility] POCT GLUCOSE (AUTOMATED) 2019-03-14 21:33:00 Edionwe [facility] [place] [facility] POCT GLUCOSE (AUTOMATED) 2019-03-14 16:56:00 Edionwe, [facility] [place] [facility] POCT GLUCOSE (AUTOMATED) 2019-03-14 12:23:00 Edionwe, [facility] [place] [facility] XR CHEST 1 VW 2019-03-14 07:21:50 Hansel abbe Alva o [facility] POCT GLUCOSE (AUTOMATED) 2019-03-14 01:22:00 Ednancy Angeliay [facility] [place] [facility] XR KNEE 3 VW LEFT 2019-03-13 23:04:42 Chucky Elkins [facility] POCT GLUCOSE (AUTOMATED) 2019-03-13 21:03:00 EdionweTaina [facility] [place] [facility] POCT GLUCOSE (AUTOMATED) 2019-03-13 16:22:00 Edionwe, Taina [facility] [place] [facility] POCT GLUCOSE (AUTOMATED) 2019-03-13 12:25:00 Edionwe, Taina [facility] BASIC METABOLIC PANEL 2019-03-13 09:57:00 Chucky Elkins [facility] (NA, K, CL, CO2, Medical Branch GLUCOSE, BUN, CREATININE, CA) CBC WITH DIFFERENTIAL 2019-03-13 09:57:00 Chucky Elkins [facility] POCT GLUCOSE (AUTOMATED) 2019-03-13 01:34:00 Edionwe, Taina [facility] POCT GLUCOSE (AUTOMATED) 2019-03-12 20:57:00 Edionwe, Taina [facility] Branch POCT GLUCOSE (AUTOMATED) 2019-03-12 16:27:00 EdionweTaina [facility] [place] [facility] POCT GLUCOSE (AUTOMATED) 2019-03-12 12:40:00 Edionwe, [facility] POCT GLUCOSE (AUTOMATED) 2019-03-12 02:01:00 Edionwe, Taina [facility] POCT GLUCOSE (AUTOMATED) 2019-03-11 21:12:00 Edionwe, Taina [facility] POCT GLUCOSE (AUTOMATED) 2019-03-11 16:28:00 EdionweTaina [facility] [place] [facility] POCT GLUCOSE (AUTOMATED) 2019-03-11 12:31:00 Edionwe, Angeliay [facility] BASIC METABOLIC PANEL 2019-03-11 10:46:00 Edionezra [facility] (NA, K, CL, CO2, Medical Branch GLUCOSE, BUN, CREATININE, CA) CBC WITH DIFFERENTIAL 2019-03-11 10:46:00 Ednancy [facility] GLYCOSYLATED HEMOGLOBIN 2019-03-11 10:46:00 Howard [facility] (A1C) [facility] Branch POCT GLUCOSE (AUTOMATED) 2019-03-11 03:58:00 EdionAngelia munguiay [facility] DIGOXIN 2019-03-11 01:25:00 Fariba Cantu [facility] XR CHEST 1 VW 2019-03-11 01:14:26 Fariba Cantu [facility] URINALYSIS 2019-03-11 00:51:00 Julita Gonzales [facility] URINE CULTURE 2019-03-11 00:51:00 Fariba Cantu [facility] BLOOD CULTURE SCREEN 2019-03-11 00:21:00 Fariba Cantu [facility] BLOOD CULTURE WORKUP 2019-03-11 00:21:00 Fariba Cantu [facility] GRAM NEGATIVE BLOOD 2019-03-11 00:21:00 Fariba Cantu [facility] PATHOGENS DNA [facility] PROBE-AEROBIC EKG-12 LEAD 2019-03-11 00:03:03 Fariba Cantu [facility] LIPASE 2019-03-11 00:01:00 Julita Gonzales [facility] TROPONIN I 2019-03-11 00:01:00 Julita Gonzales [facility] HEPATIC FUNCTION PANEL 2019-03-11 00:01:00 Julita Gonzales [facility] [place] ([id number] (ALB,T.PRO,BILI [facility] Branch T,BU/BC,ALT,AST,ALK PHOS) BASIC METABOLIC PANEL 2019-03-11 00:01:00 Julita Gonzales [facility] (NA, K, CL, CO2, Medical Branch GLUCOSE, BUN, CREATININE, CA) CBC WITH DIFFERENTIAL 2019-03-11 00:01:00 Julita Gonzales [facility] BLOOD CULTURE SCREEN 2019-03-11 00:00:00 Fariba Cantu [facility] BLOOD CULTURE WORKUP 2019-03-11 00:00:00 Fariba Cantu [facility] LACTIC ACID WHOLE BLOOD 2019-03-10 23:59:00 Fariba Cantu [facility] HOSPITAL ADM - MISC 2019-03-10 05:01:00 [facility]igned, [facility] Knee Arthroscopy/surgery [facility] Encounters Start End Encounter Admission Attending Care Care Encounter Source Date/Time Date/Time Type Type Clinicians Facility Department ID 2021-05-10 Emergency [facility] [id number] Univers 02:12:44 ity of [facility] 2021-05-09 Emergency [facility] [id number] Univers 22:45:10 ity of [facility] 2021-05-09 Emergency [facility] [id number] Univers 21:07:24 ity of [facility] 2021-04-20 2021-04-20 Orders Doctor FIOR 1.2.840.114 [id number] Univers 00:00:00 00:00:00 Only Unassigned, LALIT [id number] ity of [place] [facility] [id number] Maulik as [phone] [facility] 009 Branch 2021-04-06 2021-04-06 Emergency [facility] [id number] Univers 08:17:00 12:44:00 [facility] [id number] [id number] [phone] [facility] 014 Branch (CLC) 2021-03-30 2021-03-30 Transition Paco Salas 1.2.840.114 [id number] Univers 00:00:00 00:00:00 of Care Patty Laboy [id number] [id number] [phone] [facility] 403 Branch 2021-03-23 2021-03-29 [facility] Yuri Dias [facility] 1.2.840.1 [id number] Univers 10:23:00 14:48:00 Encounter Jad Gavin [id number] [id number] [id number] [facility] 080 Branch 2021-03-18 2021-03-18 Transition Paco Salas 1.2.840.114 [id number] Univers 00:00:00 00:00:00 of Care Patty Smithy [id number] [id number] [phone] [facility] 403 Branch 2021-03-16 2021-03-17 Hospital Andriy Pierson 1.2.840. 114 [id number] Univers 10:00:00 19:00:00 Encounter Gemma White [id number] ity of [facility] [id number] Maulik as [phone] [facility] 093 Branch 2021-03-15 2021-03-15 Telephone FIOR Chavez 1.2.007.018 [id number] Univers 00:00:00 00:00:00 Acacia COHN [id number] i ty of [facility] [id number] Maulik as [phone] [facility] 019 [place] 2021-03-15 2021-03-15 Letter FIOR Chavez 1.2.840.114 [id number] Univers 00:00:00 00:00:00 (Out) Acacia COHN [id number] i ty of [facility] [id number] Maulik as [id number] [facility] 019 [place] 2021-03-14 2021-03-14 Laboratory Only, Ang Db Test [facility] 1.2.8 40.114 [id number] Univers 17:45:12 18:00:12 Only Phillip Reynoso [id number] ity of [place] [id number] Maulik as Andreas?Blea [phone] Sc yecenia [address] Medical Office Building 2021-03-14 2021-03-14 Outpatient [facility] [id number] Univers 18:00:00 18:00:00 [id number] ity of [facility] 2021-03-14 2021-03-14 Outpatient R ANGELES [facility] [id number] Univers 18:00:00 18:00:00 PHILLIP tilley [facility] 2021-01-22 2021-01-22 General 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 Marino Neely Lab Main [facility] 1.2.8 40.114 [id number] Univers 10:14:09 10:29:09 Visit LesleyLindsey samano [id number] [id number] Profess[place] [phone] Sc dical nal 353 [facility] 2021-01-22 2021-01-22 Outpatient R [facility] [id number] Univers 10:15:00 10:15:00 [id number] ity [facility] 2021-01-22 2021-01-22 [facility] [id number] Univers 10:15:00 10:15:00 LINDSEY ity [facility] 2021-01-22 2021-01-22 Orders Doctor FIOR 1.2.840.114 [id number] Univers 00:00:00 00:00:00 Only Unassigned, LALIT [id number] ity of [place] [facility] [id number] Maulik as [phone] [address] 2020-12-29 2020-12-29 Outpatient [facility] [phone] [facility] 11:46:00 11:46:00 _A_AH [id number] Family Practic e 2020-10-18 2020-10-18 [facility] [id number] Univers 15:30:00 15:30:00 JENNIFER [facility] 2020-09-27 2020-09-27 [facility] [id number] Univers 15:20:00 15:20:00 JENNIFER [facility] 2020-09-10 2020-09-10 General Merchandise Salesperson Florinda, Adc Lab Main [facility] 1.2.8 40.114 [id number] Univers 15:12:10 15:27:10 Visit LesleyLindsey samano [id number] [id number] Danielle [phone] Sc dic[address] 2020-09-10 2020-09-10 Outpatient R [facility] [id number] Univers 14:30:00 14:30:00 [id number] ity [facility] 2020-09-10 2020-09-10 Outpatient R WESLEY, [facility] [id number] Univers 14:30:00 14:30:00 LINDSEY ity [facility] 2020-09-10 2020-09-10 Orders Doctor FIOR 1.2.840.114 [id number] Univers 00:00:00 00:00:00 Only Unassigned, LALIT 350.1.13.10 ity of [place] [facility] [id number] Maulik as [phone] [facility] 009 Branch 2020-07-31 2020-07-31 Patient Alphonso [facility] 1.2.840.114 [id number] Univers 00:00:00 00:00:00 Outreach Felix PRIMARY [id number] i ty of [facility] [id number] [phone] Sc dical [address] [place] 2020-05-31 2020-05-31 [facility] [phone] [facility] 09:07:00 09:07:00 _A_ [id number] Family Practic e 2020-05-21 2020-05-21 Zully [facility] [place] - [id number] V illage 00:00:00 00:00:00 [facility] Fam tash macias LAUNDRY PRESS OPERATOR: Medical - Practi ana [address] [email or web address] [place] [address], [place] [address] , Ph. 2020-05-04 2020-05-04 Hospital Perla, [facility] [id number] Univers 12:42:13 23:59:00 Encounter Attending Maximo [id number] [id number] [id number] [facility] 804 Branch 2020-05-04 2020-05-04 Outpatient R [facility] [id number] Univers 13:00:00 13:00:00 [id number] ity of [facility] 2020-05-04 2020-05-04 Outpatient R [facility] [id number] Univers 00:00:00 00:00:00 ity of [facility] 2020-04-12 2020-04-12 Outpatient Skinny-Mbayo VFP VFP [id number] [facility] 01:39:00 01:39:00 _A_AH [id number] Family Practic e 2020-04-07 2020-04-07 Outpatient R [facility] [id number] Univers 00:00:00 00:00:00 [facility] 2020-04-05 2020-04-05 Outpatient R CHERYL, [facility] [id number] Univers 13:45:00 13:45:00 JAIDEN [id number] [facility] 2020-04-05 2020-04-05 Outpatient R CHERYL, [facility] [id number] Univers 13:45:00 13:45:00 JAIDEN [facility] 2020-03-31 2020-03-31 Outpatient [facility] [id number] Univers 14:00:00 14:00:00 [id number] [facility] 2020-03-26 2020-03-26 Outpatient Skinny-Mbayo VFP VFP [address] [place] [address] 09:11:00 09:11:00 _A_AH [id number] Family Practic e 2020-03-22 2020-03-22 Zully VFP [place] - [id number] V illage 00:00:00 00:00:00 SkinnyCierra [facility] Zac macias LAUNDRY PRESS OPERATOR: Medical - Practi c [address] [email or web address], [place] [address], [place] [address] , Ph. 2020-03-05 2020-03-05 Outpatient Skinny-Mbayo VFP VFP [address] [place] [address] 08:03:00 08:03:00 _A_AH 25994 Family Practic e 2020-02-25 2020-02-25 Outpatient Skinny-Mbayo VFP VFP [address] [place] [address] 10:26:00 10:26:00 _A_AH 37181 Family Practic e 2020-02-18 2020-02-18 Zully VFP [place] - [id number] V illage 00:00:00 00:00:00 [facility] Zac macias LAUNDRY PRESS OPERATOR: Medical - Practi c [address] [email or web address], [place] [address], [place] [address] , Ph. 2020-01-06 2020-01-06 Outpatient Skinny-Mbayo VFP VFP [id number] [facility] 06:59:00 06:59:00 _A_AH 32632 Family Practic e 2020-01-05 2020-01-05 Outpatient Skinny-Mbayo VFP VFP [address] 11:05:00 11:05:00 _A_AH [id number] Family Practic e 2019-12-23 2019-12-23 Outpatient Skinny-Mbayo VFP VFP [id number] [facility] 09:02:00 09:02:00 _A_AH 50286 Family Practic e 2019-12-23 2019-12-23 Outpatient Skinny-Mbayo VFP VFP [id number] [facility] 09:02:00 09:02:00 _A_AH [id number] Family Practic e 2019-12-18 2019-12-18 Zully VFP [place] - [id number] V illage 00:00:00 00:00:00 [place] Fam tash o, LAUNDRY PRESS OPERATOR: Medical - Practi c [address] [email or web address], [place] [address], [place] [address] , Ph. 2019-08-27 2019-08-27 Outpatient Skinny-Mbayo VFP VFP [id number] 07:12:00 07:12:00 _A_AH 30498 Family Practic e 2019-08-14 2019-08-14 Office Fabrice Ray [facility] 1.2.840.114 [id number] Univers 10:41:59 10:56:59 Visit Jaiden Luna [facility] [id number] ity of Surgical [id number] Maulik as Specialti [phone] Sc dical es 198 Branch Maximo 2019-08-11 2019-08-11 Hospital Cheryl [facility] 1.2.840.114 [id number] Univers 11:30:00 23:59:00 Encounter Jaiden David Maximo [id number] [id number] [phone] [facility] 807 Branch 2019-08-05 2019-08-05 Telephone Cheryl [facility] 1.2.840.114 [id number] Univers 00:00:00 00:00:00 Jaiden David Health 350.1.13.10 it y of Surgical [id number] Maulik as Specialti [id number] Sc dical es 198 [facility] 2019-07-31 2019-07-31 Orders Doctor FIOR 1.2.840.114 [id number] Univers 00:00:00 00:00:00 Only Unassigned, LALIT 350.1.13.10 ity of [place] [facility] 4.2.7.2.686 Maulik as [phone] [facility] 009 [place] 2019-07-03 2019-07-03 Orders Doctor FIOR 1.2.840.114 [id number] Univers 00:00:00 00:00:00 Only Unassigned, LALIT 350.1.13.10 ity of [place] [facility] 4.2.7.2.686 Maulik as [phone] [facility] 009 [place] 2019-06-22 2019-06-22 Emergency X [facility] ERT [id number] Univers 09:39:07 12:04:00 JULITA ity of [facility] 2019-03-19 2019-03-19 Transition Paco Perez 1.2.840.114 [id number] Univers 00:00:00 00:00:00 of Care Kayleen Smithy 350.1.13.10 it [place] [phone] [facility] [address] 2019-03-10 2019-03-18 [facility] 1.2.840.1 [id number] [facility] 18:29:13 16:20:00 Encounter Taina Castro Max[place] 350.1.13.10 [place] [id number] [facility] [address] Results Test Description Test Time Test Comments Results Result Comments Source Type and Screen - ONCE Routine 2021-04-06 14:01:27 Test Item Value Reference Range Interpretation Comme nts ABO & RH (test code = 20) A Positive Pe rformed at [facility] Laboratory Services - [facility] Blood [address] [place], [place] [address]Zlmb Free: [phone] No. [id number] IAT (test code = 1185) Negative Perfo rmed at [facility] Laboratory Services - [facility] Blood [address] [place], [place] [address]Ysbr Free: [phone] No. [id number] [facility] / [id number] 13:58:55 Test Item Value Reference Range Interpretation Comments PROTIME PATIENT (test See_Comment H [Auto mated message] code = 5964-2) The system [employer] generated this result transmitted ref erence range: 10.1 - 1 2.6 Seconds. The reference range was not used to int erpret this result as normal/abnormal . INR (test code = 6301-6) Nor mal INR <1.1; Warfarin Therap eutic range 2.0 to 3. 0 or 2.5 to 3.5, dep ending upon the indica tions. Lab Interpretation (test Abnormal code = 24788-5) [facility] METABOLIC PANEL ([id number])2021-04-06 13:30:35 Test Item Value Reference Range Interpretation Comments NA (test code = 132 mmol/L 135-145 L 8347620221) K (test code = 5.0 mmol/L 3.5-5.0 6292681617) CL (test code = 92 mmol/L 98-108 L 0229586312) CO2 TOTAL (test code = 33 mmol/L 23-31 H 5680791350) AGAP (test code = 2-16 9325109896) BUN (test code = 29 mg/dL 7-23 H 4445441279) GLUCOSE (test code = 156 mg/dL 70-110 H 8307263051) CREATININE (test code = 0.69 mg/dL 0.50-1.04 6683255884) TOTAL BILI (test code = 0.6 mg/dL 0.1-1.7 9031889848) CALCIUM (test code = 9.2 mg/dL 8.6-10.6 6574028369) T PROTEIN (test code = 6.8 g/dL 6.3-8.2 5781048755) ALBUMIN (test code = 3.8 g/dL 3.5-5.0 1950686741) ALK PHOS (test code = 120 U/L 34-122 8644116790) ALTv (test code = 19 U/L 5-35 1742-6) AST(SGOT) (test code = 23 U/L 13-40 9505386233) eGFR (test code = mL/min/1.73m2 6390748839) KENA (test code = KENA) Association of Glomerular Filtration Rate (GFR) and Staging of Kidney Disease* + --+ --+ ------+| GFR (mL/min/1.73 m2) ?| With Kidney Damage ?| ?Without Kidney Damage+ --------+ --------+ +| ?>90 ?| ?Stage one ?| ? Normal ?+ ---+ ---+ -------+| ?60-89 ?| ?Stage two ?| ? Decreased GFR ? + --+ --+ ------+| ?30-59 ?| ?Stage three ?| ? Stage three ? + --+ --+ ------+| ?15-29 ?| ?Stage four ? | ? Stage four ?+ ---+ ---+ -------+| ?<15 (or dialysis) ? ?| ?Stage five ? | ? Stage five ?+ ---+ ---+ -------+ *Each stage assumes the associated GFR level has been in effect for at least three months. ?Stages 1 to 5, with or without kidney disease, indicate chronic kidney disease. Notes: Determination of stages one and two (with eGFR >59mL/min/1.73 m2) requires estimation of kidney damage for at least three months as defined by structural or functional abnormalities of the kidney, manifested by either:Pathological abnormalities or Markers of kidney damage (including abnormalities in the composition of the blood or urine or abnormalities in imaging tests). Lab Interpretation Abnormal (test code = 82789-7) [facility] WITH [id number] 13:21:51 Test Item Value Reference Range Interpretation Comments WBC (test code = See_Comment [Automated 6690-2) message] The sy stem which generated this result transmitted reference range : 4.30 - 11.10 10*3/?L. The reference range was not used to interpret this result as normal/abnormal . RBC (test code = See_Comment [Automated 789-8) message] The sy stem which generated this result transmitted reference range : 3.93 - 5.25 10*6/?L. The reference range was not used to interpret this result as normal/abnormal . HGB (test code = 12.5 g/dL 11.6-15.0 718-7) HCT (test code = 38.8 % 35.7-45.2 4544-3) MCV (test code = 86.0 fL 80.6-95.5 787-2) MCH (test code = 27.7 pg 25.9-32.8 785-6) MCHC (test code = 32.2 g/dL 31.6-35.1 786-4) RDW-SD (test code = 45.9 fL 39.0-49.9 28949-3) RDW-CV (test code = 14.7 % 12.0-15.5 788-0) PLT (test code = See_Comment [Automated 777-3) message] The sy stem which generated this result transmitted reference range : 166 - 358 10*3/ ?L. The reference r ilan was not used to interpret this result as normal/abnormal . MPV (test code = 10.8 fL 9.5-12.9 94428-1) NRBC/100 WBC (test See_Comment [Automat ed code = 0726879816) message] The system which generated this result transmitted reference range : 0.0 - 10.0 /100 WBCs. The refer ence range was not u sed to interpret th is result as normal/abnormal . NRBC x10^3 (test code <0.01 See_Comment [Auto mated = 8100171393) message] The s ystem which generated this result transmitted reference range : 10*3/?L. The reference range was not used to interpret this result as normal/abnormal . GRAN MAT (NEUT) % 60.7 % (test code = 770-8) IMM GRAN % (test code 1.00 % = 3475996097) LYMPH % (test code = 11.8 % 736-9) MONO % (test code = 11.2 % 5905-5) EOS % (test code = 14.9 % 713-8) BASO % (test code = 0.4 % 706-2) GRAN MAT x10^3(ANC) 3.09 10*3/uL 1.88-7.09 (test code = 3878740307) IMM GRAN x10^3 (test 0.05 10*3/uL 0.00-0.06 code = 8950792658) LYMPH x10^3 (test code 0.60 10*3/uL 1.32-3.29 L = 731-0) MONO x10^3 (test code 0.57 10*3/uL 0.33-0.92 = 742-7) EOS x10^3 (test code = 0.76 10*3/uL 0.03-0.39 H 711-2) BASO x10^3 (test code <0.03 0.01-0.07 = 704-7) Lab Interpretation Abnormal (test code = 15730-7) [facility] GLUCOSE (AUTOMATED)2021-03-29 17:01:45 Test Item Value Reference Range Interpretation Comments POCT GLU (test code = 7007302742) 199 mg/dL 70-110 H Lab Interpretation (test code = Abnormal 60135-2) [facility] GLUCOSE (AUTOMATED)2021-03-29 17:01:45 Test Item Value Reference Range Interpretation Comments POCT GLU (test code = 8570536705) 199 mg/dL 70-110 H Lab Interpretation (test code = Abnormal 48066-1) [facility] OR [id number] 15:24:42 Test Item Value Reference Range Interpretation Comments OSMOLALITY (test code = See_Comment [Au tomated message] 8714826702) The system [employer] generated this result transmitted ref erence range: 278 - 30 5 mOsm/kg. The re ference range was not u sed to interpret this result as normal/abnor mal. Lab Interpretation (test Normal code = 73588-5) [facility], SERUM OR [id number] 15:24:42 Test Item Value Reference Range Interpretation Comments OSMOLALITY (test code = See_Comment [Au tomated message] 4279428441) The system [employer] generated this result transmitted ref erence range: 278 - 30 5 mOsm/kg. The re ference range was not u sed to interpret this result as normal/abnor mal. Lab Interpretation (test Normal code = 91489-7) [facility] GLUCOSE (AUTOMATED)2021-03-29 13:38:41 Test Item Value Reference Range Interpretation Comments POCT GLU (test code = 7078459297) 170 mg/dL 70-110 H Lab Interpretation (test code = Abnormal 16562-8) [facility] GLUCOSE (AUTOMATED)2021-03-29 13:38:41 Test Item Value Reference Range Interpretation Comments POCT GLU (test code = 3457844971) 170 mg/dL 70-110 H Lab Interpretation (test code = Abnormal 29198-7) [facility] Test Item Value Reference Range Interpretation Comments MAGNESIUM (test code = 9984241835) 1.5 mg/dL 1.7-2.4 L Lab Interpretation (test code = Abnormal 30225-1) [facility]20:57 Test Item Value Reference Range Interpretation Comments MAGNESIUM (test code = 0136935183) 1.5 mg/dL 1.7-2.4 L Lab Interpretation (test code = Abnormal 37010-3) [facility] METABOLIC PANEL ([id number])2021-03-29 11:20:42 Test Item Value Reference Range Interpretation Comments NA (test code = 131 mmol/L 135-145 L 9566687865) K (test code = 4.2 mmol/L 3.5-5.0 0914005106) CL (test code = 95 mmol/L 98-108 L 7135512850) CO2 TOTAL (test code = 29 mmol/L 23-31 7291174484) AGAP (test code = 2-16 9472364463) BUN (test code = 21 mg/dL 7-23 2222876654) GLUCOSE (test code = 200 mg/dL 70-110 H 5080432373) CREATININE (test code = 0.79 mg/dL 0.50-1.04 0484161895) TOTAL BILI (test code = 0.5 mg/dL 0.1-1.6 4364760783) CALCIUM (test code = 8.6 mg/dL 8.6-10.6 5672681879) T PROTEIN (test code = 6.2 g/dL 6.3-8.2 L 7123974251) ALBUMIN (test code = 3.1 g/dL 3.5-5.0 L 4312869088) ALK PHOS (test code = 112 U/L 34-122 7271560261) ALTv (test code = 14 U/L 5-35 1742-6) AST(SGOT) (test code = 17 U/L 13-40 0648042222) eGFR (test code = mL/min/1.73m2 4248188594) KENA (test code = KENA) Association of Glomerular Filtration Rate (GFR) and Staging of Kidney Disease* + --+ --+ ------+| GFR (mL/min/1.73 m2) ?| With Kidney Damage ?| ?Without Kidney Damage+ --------+ --------+ +| ?>90 ?| ?Stage one ?| ? Normal ?+ ---+ ---+ -------+| ?60-89 ?| ?Stage two ?| ? Decreased GFR ? + --+ --+ ------+| ?30-59 ?| ?Stage three ?| ? Stage three ? + --+ --+ ------+| ?15-29 ?| ?Stage four ? | ? Stage four ?+ ---+ ---+ -------+| ?<15 (or dialysis) ? ?| ?Stage five ? | ? Stage five ?+ ---+ ---+ -------+ *Each stage assumes the associated GFR level has been in effect for at least three months. ?Stages 1 to 5, with or without kidney disease, indicate chronic kidney disease. Notes: Determination of stages one and two (with eGFR >59mL/min/1.73 m2) requires estimation of kidney damage for at least three months as defined by structural or functional abnormalities of the kidney, manifested by either:Pathological abnormalities or Markers of kidney damage (including abnormalities in the composition of the blood or urine or abnormalities in imaging tests). Lab Interpretation Abnormal (test code = 01613-5) [facility] 11:20:42 Test Item Value Reference Range Interpretation Comments PHOSPHORUS (test code = 7137605348) 3.6 mg/dL 2.5-5.0 Lab Interpretation (test code = Normal 00826-5) [facility] METABOLIC PANEL ([id number])2021-03-29 11:20:42 Test Item Value Reference Range Interpretation Comments NA (test code = 131 mmol/L 135-145 L 2805697282) K (test code = 4.2 mmol/L 3.5-5.0 8498974689) CL (test code = 95 mmol/L 98-108 L 5311932645) CO2 TOTAL (test code = 29 mmol/L 23-31 8964762835) AGAP (test code = 2-16 8513448404) BUN (test code = 21 mg/dL 7-23 8751922388) GLUCOSE (test code = 200 mg/dL 70-110 H 1622727388) CREATININE (test code = 0.79 mg/dL 0.50-1.04 1476309350) TOTAL BILI (test code = 0.5 mg/dL 0.1-1.6 1766928155) CALCIUM (test code = 8.6 mg/dL 8.6-10.6 5143731656) T PROTEIN (test code = 6.2 g/dL 6.3-8.2 L 5753017310) ALBUMIN (test code = 3.1 g/dL 3.5-5.0 L 5784408266) ALK PHOS (test code = 112 U/L 34-122 3756431378) ALTv (test code = 14 U/L 5-35 1742-6) AST(SGOT) (test code = 17 U/L 13-40 0124873170) eGFR (test code = mL/min/1.73m2 4967327052) KENA (test code = KENA) Association of Glomerular Filtration Rate (GFR) and Staging of Kidney Disease* + --+ --+ ------+| GFR (mL/min/1.73 m2) ?| With Kidney Damage ?| ?Without Kidney Damage+ --------+ --------+ +| ?>90 ?| ?Stage one ?| ? Normal ?+ ---+ ---+ -------+| ?60-89 ?| ?Stage two ?| ? Decreased GFR ? + --+ --+ ------+| ?30-59 ?| ?Stage three ?| ? Stage three ? + --+ --+ ------+| ?15-29 ?| ?Stage four ? | ? Stage four ?+ ---+ ---+ -------+| ?<15 (or dialysis) ? ?| ?Stage five ? | ? Stage five ?+ ---+ ---+ -------+ *Each stage assumes the associated GFR level has been in effect for at least three months. ?Stages 1 to 5, with or without kidney disease, indicate chronic kidney disease. Notes: Determination of stages one and two (with eGFR >59mL/min/1.73 m2) requires estimation of kidney damage for at least three months as defined by structural or functional abnormalities of the kidney, manifested by either:Pathological abnormalities or Markers of kidney damage (including abnormalities in the composition of the blood or urine or abnormalities in imaging tests). Lab Interpretation Abnormal (test code = 84436-5) [facility] 11:20:42 Test Item Value Reference Range Interpretation Comments PHOSPHORUS (test code = 5283457710) 3.6 mg/dL 2.5-5.0 Lab Interpretation (test code = Normal 64804-1) [facility] [id number] 11:20:41 Test Item Value Reference Range Interpretation Comments URIC ACID (test code = 2446043195) 3.6 mg/dL 2.9-6.0 Lab Interpretation (test code = Normal 05914-8) [facility] [id number] 11:20:41 Test Item Value Reference Range Interpretation Comments URIC ACID (test code = 7522471431) 3.6 mg/dL 2.9-6.0 Lab Interpretation (test code = Normal 90591-9) [facility] GLUCOSE (AUTOMATED)2021-03-29 01:28:01 Test Item Value Reference Range Interpretation Comments POCT GLU (test code = 5046697310) 170 mg/dL 70-110 H Lab Interpretation (test code = Abnormal 69534-7) [facility] GLUCOSE (AUTOMATED)2021-03-29 01:28:01 Test Item Value Reference Range Interpretation Comments POCT GLU (test code = 6289712512) 170 mg/dL 70-110 H Lab Interpretation (test code = Abnormal 14582-9) [facility] GLUCOSE (AUTOMATED)2021-03-28 21:52:00 Test Item Value Reference Range Interpretation Comments POCT GLU (test code = 2851799815) 215 mg/dL 70-110 H Lab Interpretation (test code = Abnormal 11127-3) [facility] GLUCOSE (AUTOMATED)2021-03-28 21:52:00 Test Item Value Reference Range Interpretation Comments POCT GLU (test code = 4375293077) 215 mg/dL 70-110 H Lab Interpretation (test code = Abnormal 27785-6) [facility] GLUCOSE (AUTOMATED)2021-03-28 16:45:57 Test Item Value Reference Range Interpretation Comments POCT GLU (test code = 6540637950) 244 mg/dL 70-110 H Lab Interpretation (test code = Abnormal 26055-3) [facility] GLUCOSE (AUTOMATED)2021-03-28 16:45:57 Test Item Value Reference Range Interpretation Comments POCT GLU (test code = 8460959663) 244 mg/dL 70-110 H Lab Interpretation (test code = Abnormal 55112-3) [facility] GLUCOSE (AUTOMATED)2021-03-28 12:31:07 Test Item Value Reference Range Interpretation Comments POCT GLU (test code = 3604330608) 176 mg/dL 70-110 H Lab Interpretation (test code = Abnormal 33294-6) [facility] GLUCOSE (AUTOMATED)2021-03-28 12:31:07 Test Item Value Reference Range Interpretation Comments POCT GLU (test code = 3738845614) 176 mg/dL 70-110 H Lab Interpretation (test code = Abnormal 27477-8) [facility] METABOLIC PANEL (NA, K, CL, CO2, GLUCOSE, BUN, CREATININE, CA)2021-03-28 12:03:59 Test Item Value Reference Range Interpretation Comments NA (test code = 128 mmol/L 135-145 L 8915050296) K (test code = 4.4 mmol/L 3.5-5.0 1631763288) CL (test code = 92 mmol/L 98-108 L 5913323801) CO2 TOTAL (test code = 29 mmol/L 23-31 9702091123) AGAP (test code = 2-16 2301040754) BUN (test code = 22 mg/dL 7-23 4037247378) GLUCOSE (test code = 166 mg/dL 70-110 H 6818571888) CREATININE (test code = 0.72 mg/dL 0.50-1.04 9615053655) CALCIUM (test code = 8.9 mg/dL 8.6-10.6 2059184952) eGFR (test code = mL/min/1.73m2 7124699370) KENA (test code = KENA) Association of Glomerular Filtration Rate (GFR) and Staging of Kidney Disease* + --+ --+ ------+| GFR (mL/min/1.73 m2) ?| With Kidney Damage ?| ?Without Kidney Damage+ --------+ --------+ +| ?>90 ?| ?Stage one ?| ? Normal ?+ ---+ ---+ -------+| ?60-89 ?| ?Stage two ?| ? Decreased GFR ? + --+ --+ ------+| ?30-59 ?| ?Stage three ?| ? Stage three ? + --+ --+ ------+| ?15-29 ?| ?Stage four ? | ? Stage four ?+ ---+ ---+ -------+| ?<15 (or dialysis) ? ?| ?Stage five ? | ? Stage five ?+ ---+ ---+ -------+ *Each stage assumes the associated GFR level has been in effect for at least three months. ?Stages 1 to 5, with or without kidney disease, indicate chronic kidney disease. Notes: Determination of stages one and two (with eGFR >59mL/min/1.73 m2) requires estimation of kidney damage for at least three months as defined by structural or functional abnormalities of the kidney, manifested by either:Pathological abnormalities or Markers of kidney damage (including abnormalities in the composition of the blood or urine or abnormalities in imaging tests). Lab Interpretation Abnormal (test code = 75191-1) [facility] METABOLIC PANEL (NA, K, CL, CO2, GLUCOSE, BUN, CREATININE, CA)2021-03-28 12:03:59 Test Item Value Reference Range Interpretation Comments NA (test code = 128 mmol/L 135-145 L 6986107590) K (test code = 4.4 mmol/L 3.5-5.0 4494574872) CL (test code = 92 mmol/L 98-108 L 4760582551) CO2 TOTAL (test code = 29 mmol/L 23-31 6314243518) AGAP (test code = 2-16 6253785875) BUN (test code = 22 mg/dL 7-23 1981969418) GLUCOSE (test code = 166 mg/dL 70-110 H 5948956646) CREATININE (test code = 0.72 mg/dL 0.50-1.04 5793075938) CALCIUM (test code = 8.9 mg/dL 8.6-10.6 6078426772) eGFR (test code = mL/min/1.73m2 4676270467) KENA (test code = KENA) Association of Glomerular Filtration Rate (GFR) and Staging of Kidney Disease* + --+ --+ ------+| GFR (mL/min/1.73 m2) ?| With Kidney Damage ?| ?Without Kidney Damage+ --------+ --------+ +| ?>90 ?| ?Stage one ?| ? Normal ?+ ---+ ---+ -------+| ?60-89 ?| ?Stage two ?| ? Decreased GFR ? + --+ --+ ------+| ?30-59 ?| ?Stage three ?| ? Stage three ? + --+ --+ ------+| ?15-29 ?| ?Stage four ? | ? Stage four ?+ ---+ ---+ -------+| ?<15 (or dialysis) ? ?| ?Stage five ? | ? Stage five ?+ ---+ ---+ -------+ *Each stage assumes the associated GFR level has been in effect for at least three months. ?Stages 1 to 5, with or without kidney disease, indicate chronic kidney disease. Notes: Determination of stages one and two (with eGFR >59mL/min/1.73 m2) requires estimation of kidney damage for at least three months as defined by structural or functional abnormalities of the kidney, manifested by either:Pathological abnormalities or Markers of kidney damage (including abnormalities in the composition of the blood or urine or abnormalities in imaging tests). Lab Interpretation Abnormal (test code = 04906-5) [facility] WITH [id number] 11:35:36 Test Item Value Reference Range Interpretation Comments WBC (test code = See_Comment [Automated 6690-2) message] The sy stem which generated this result transmitted reference range : 4.30 - 11.10 10*3/?L. The reference range was not used to interpret this result as normal/abnormal . RBC (test code = See_Comment [Automated 789-8) message] The sy stem which generated this result transmitted reference range : 3.93 - 5.25 10*6/?L. The reference range was not used to interpret this result as normal/abnormal . HGB (test code = 11.4 g/dL 11.6-15.0 L 718-7) HCT (test code = 35.4 % 35.7-45.2 L 4544-3) MCV (test code = 84.1 fL 80.6-95.5 787-2) MCH (test code = 27.1 pg 25.9-32.8 785-6) MCHC (test code = 32.2 g/dL 31.6-35.1 786-4) RDW-SD (test code = 44.0 fL 39.0-49.9 21839-0) RDW-CV (test code = 14.4 % 12.0-15.5 788-0) PLT (test code = See_Comment [Automated 777-3) message] The sy stem which generated this result transmitted reference range : 166 - 358 10*3/ ?L. The reference r ilan was not used to interpret this result as normal/abnormal . MPV (test code = 11.8 fL 9.5-12.9 05842-0) NRBC/100 WBC (test See_Comment [Automat ed code = 7603510004) message] The system which generated this result transmitted reference range : 0.0 - 10.0 /100 WBCs. The refer ence range was not u sed to interpret th is result as normal/abnormal . NRBC x10^3 (test code <0.01 See_Comment [Auto mated = 1224085489) message] The s ystem which generated this result transmitted reference range : 10*3/?L. The reference range was not used to interpret this result as normal/abnormal . GRAN MAT (NEUT) % 77.3 % (test code = 770-8) IMM GRAN % (test code 1.10 % = 1340646290) LYMPH % (test code = 6.7 % 736-9) MONO % (test code = 10.5 % 5905-5) EOS % (test code = 4.1 % 713-8) BASO % (test code = 0.3 % 706-2) GRAN MAT x10^3(ANC) 5.09 10*3/uL 1.88-7.09 (test code = 7201928474) IMM GRAN x10^3 (test 0.07 10*3/uL 0.00-0.06 H code = 6522881862) LYMPH x10^3 (test code 0.44 10*3/uL 1.32-3.29 L = 731-0) MONO x10^3 (test code 0.69 10*3/uL 0.33-0.92 = 742-7) EOS x10^3 (test code = 0.27 10*3/uL 0.03-0.39 711-2) BASO x10^3 (test code <0.03 0.01-0.07 = 704-7) Lab Interpretation Abnormal (test code = 87297-2) [facility] WITH [id number] 11:35:36 Test Item Value Reference Range Interpretation Comments WBC (test code = See_Comment [Automated 1190-2) message] The sy stem which generated this result transmitted reference range : 4.30 - 11.10 10*3/?L. The reference range was not used to interpret this result as normal/abnormal . RBC (test code = See_Comment [Automated 829-8) message] The sy stem which generated this result transmitted reference range : 3.93 - 5.25 10*6/?L. The reference range was not used to interpret this result as normal/abnormal . HGB (test code = 11.4 g/dL 11.6-15.0 L 718-7) HCT (test code = 35.4 % 35.7-45.2 L 4544-3) MCV (test code = 84.1 fL 80.6-95.5 787-2) MCH (test code = 27.1 pg 25.9-32.8 785-6) MCHC (test code = 32.2 g/dL 31.6-35.1 786-4) RDW-SD (test code = 44.0 fL 39.0-49.9 34055-2) RDW-CV (test code = 14.4 % 12.0-15.5 788-0) PLT (test code = See_Comment [Automated 777-3) message] The sy stem which generated this result transmitted reference range : 166 - 358 10*3/ ?L. The reference r ilan was not used to interpret this result as normal/abnormal . MPV (test code = 11.8 fL 9.5-12.9 62963-7) NRBC/100 WBC (test See_Comment [Automat ed code = 5773018599) message] The system which generated this result transmitted reference range : 0.0 - 10.0 /100 WBCs. The refer ence range was not u sed to interpret th is result as normal/abnormal . NRBC x10^3 (test code <0.01 See_Comment [Auto mated = 8701981788) message] The s ystem which generated this result transmitted reference range : 10*3/?L. The reference range was not used to interpret this result as normal/abnormal . GRAN MAT (NEUT) % 77.3 % (test code = 770-8) IMM GRAN % (test code 1.10 % = 9095566063) LYMPH % (test code = 6.7 % 736-9) MONO % (test code = 10.5 % 5905-5) EOS % (test code = 4.1 % 713-8) BASO % (test code = 0.3 % 706-2) GRAN MAT x10^3(ANC) 5.09 10*3/uL 1.88-7.09 (test code = 6790907044) IMM GRAN x10^3 (test 0.07 10*3/uL 0.00-0.06 H code = 9914122439) LYMPH x10^3 (test code 0.44 10*3/uL 1.32-3.29 L = 731-0) MONO x10^3 (test code 0.69 10*3/uL 0.33-0.92 = 742-7) EOS x10^3 (test code = 0.27 10*3/uL 0.03-0.39 711-2) BASO x10^3 (test code <0.03 0.01-0.07 = 704-7) Lab Interpretation Abnormal (test code = 18778-3) [facility] GLUCOSE (AUTOMATED)2021-03-28 02:02:37 Test Item Value Reference Range Interpretation Comments POCT GLU (test code = 9001449221) 181 mg/dL 70-110 H Lab Interpretation (test code = Abnormal 85443-1) [facility] GLUCOSE (AUTOMATED)2021-03-28 02:02:37 Test Item Value Reference Range Interpretation Comments POCT GLU (test code = 7025106505) 181 mg/dL 70-110 H Lab Interpretation (test code = Abnormal 88623-2) [facility] GLUCOSE (AUTOMATED)2021-03-27 23:16:42 Test Item Value Reference Range Interpretation Comments POCT GLU (test code = 6886133920) 304 mg/dL 70-110 H Lab Interpretation (test code = Abnormal 90584-5) [facility] GLUCOSE (AUTOMATED)2021-03-27 23:16:42 Test Item Value Reference Range Interpretation Comments POCT GLU (test code = 2052940486) 304 mg/dL 70-110 H Lab Interpretation (test code = Abnormal 33536-7) [facility] GLUCOSE (AUTOMATED)2021-03-27 19:16:32 Test Item Value Reference Range Interpretation Comments POCT GLU (test code = 8608758653) 132 mg/dL 70-110 H Lab Interpretation (test code = Abnormal 10483-1) [facility] GLUCOSE (AUTOMATED)2021-03-27 19:16:32 Test Item Value Reference Range Interpretation Comments POCT GLU (test code = 7483270144) 132 mg/dL 70-110 H Lab Interpretation (test code = Abnormal 14579-1) [facility] GLUCOSE (AUTOMATED)2021-03-27 13:16:16 Test Item Value Reference Range Interpretation Comments POCT GLU (test code = 1388293288) 198 mg/dL 70-110 H Lab Interpretation (test code = Abnormal 15957-0) [facility] 13:16:16 Test Item Value Reference Range Interpretation Comments POCT GLU (test code = 3426980664) 198 mg/dL 70-110 H Lab Interpretation (test code = Abnormal 38743-5) [facility] METABOLIC PANEL (NA, K, CL, CO2, GLUCOSE, BUN, CREATININE, CA)2021-03-27 12:53:08 Test Item Value Reference Range Interpretation Comments NA (test code = 129 mmol/L 135-145 L 2338976828) K (test code = 4.4 mmol/L 3.5-5.0 6845546637) CL (test code = 91 mmol/L 98-108 L 2342671193) CO2 TOTAL (test code = 33 mmol/L 23-31 H 4954010662) AGAP (test code = 2-16 9147388882) BUN (test code = 22 mg/dL 7-23 6879742622) GLUCOSE (test code = 197 mg/dL 70-110 H 9151834217) CREATININE (test code = 0.79 mg/dL 0.50-1.04 0319966478) CALCIUM (test code = 8.9 mg/dL 8.6-10.6 3850021392) eGFR (test code = mL/min/1.73m2 6873807534) KENA (test code = KENA) Association of Glomerular Filtration Rate (GFR) and Staging of Kidney Disease* + --+ --+ ------+| GFR (mL/min/1.73 m2) ?| With Kidney Damage ?| ?Without Kidney Damage+ --------+ --------+ +| ?>90 ?| ?Stage one ?| ? Normal ?+ ---+ ---+ -------+| ?60-89 ?| ?Stage two ?| ? Decreased GFR ? + --+ --+ ------+| ?30-59 ?| ?Stage three ?| ? Stage three ? + --+ --+ ------+| ?15-29 ?| ?Stage four ? | ? Stage four ?+ ---+ ---+ -------+| ?<15 (or dialysis) ? ?| ?Stage five ? | ? Stage five ?+ ---+ ---+ -------+ *Each stage assumes the associated GFR level has been in effect for at least three months. ?Stages 1 to 5, with or without kidney disease, indicate chronic kidney disease. Notes: Determination of stages one and two (with eGFR >59mL/min/1.73 m2) requires estimation of kidney damage for at least three months as defined by structural or functional abnormalities of the kidney, manifested by either:Pathological abnormalities or Markers of kidney damage (including abnormalities in the composition of the blood or urine or abnormalities in imaging tests). Lab Interpretation Abnormal (test code = 84051-3) [facility] METABOLIC PANEL (NA, K, CL, CO2, GLUCOSE, BUN, CREATININE, CA)2021-03-27 12:53:08 Test Item Value Reference Range Interpretation Comments NA (test code = 129 mmol/L 135-145 L 6635800128) K (test code = 4.4 mmol/L 3.5-5.0 6003772398) CL (test code = 91 mmol/L 98-108 L 6856348305) CO2 TOTAL (test code = 33 mmol/L 23-31 H 2779813198) AGAP (test code = 2-16 4623427925) BUN (test code = 22 mg/dL 7-23 5540782165) GLUCOSE (test code = 197 mg/dL 70-110 H 4106063190) CREATININE (test code = 0.79 mg/dL 0.50-1.04 9657200425) CALCIUM (test code = 8.9 mg/dL 8.6-10.6 1115468827) eGFR (test code = mL/min/1.73m2 2935970682) KENA (test code = KENA) Association of Glomerular Filtration Rate (GFR) and Staging of Kidney Disease* + --+ --+ ------+| GFR (mL/min/1.73 m2) ?| With Kidney Damage ?| ?Without Kidney Damage+ --------+ --------+ +| ?>90 ?| ?Stage one ?| ? Normal ?+ ---+ ---+ -------+| ?60-89 ?| ?Stage two ?| ? Decreased GFR ? + --+ --+ ------+| ?30-59 ?| ?Stage three ?| ? Stage three ? + --+ --+ ------+| ?15-29 ?| ?Stage four ? | ? Stage four ?+ ---+ ---+ -------+| ?<15 (or dialysis) ? ?| ?Stage five ? | ? Stage five ?+ ---+ ---+ -------+ *Each stage assumes the associated GFR level has been in effect for at least three months. ?Stages 1 to 5, with or without kidney disease, indicate chronic kidney disease. Notes: Determination of stages one and two (with eGFR >59mL/min/1.73 m2) requires estimation of kidney damage for at least three months as defined by structural or functional abnormalities of the kidney, manifested by either:Pathological abnormalities or Markers of kidney damage (including abnormalities in the composition of the blood or urine or abnormalities in imaging tests). Lab Interpretation Abnormal (test code = 68306-4) [facility] WITH [id number] 12:23:50 Test Item Value Reference Range Interpretation Comments WBC (test code = See_Comment [Automated 0816-2) message] The sy stem which generated this result transmitted reference range : 4.30 - 11.10 10*3/?L. The reference range was not used to interpret this result as normal/abnormal . RBC (test code = See_Comment [Automated 051-8) message] The sy stem which generated this result transmitted reference range : 3.93 - 5.25 10*6/?L. The reference range was not used to interpret this result as normal/abnormal . HGB (test code = 12.3 g/dL 11.6-15.0 718-7) HCT (test code = 37.8 % 35.7-45.2 4544-3) MCV (test code = 84.0 fL 80.6-95.5 787-2) MCH (test code = 27.3 pg 25.9-32.8 785-6) MCHC (test code = 32.5 g/dL 31.6-35.1 786-4) RDW-SD (test code = 44.0 fL 39.0-49.9 46921-1) RDW-CV (test code = 14.2 % 12.0-15.5 788-0) PLT (test code = See_Comment [Automated 430-3) message] The sy stem which generated this result transmitted reference range : 166 - 358 10*3/ ?L. The reference r ilan was not used to interpret this result as normal/abnormal . MPV (test code = 11.4 fL 9.5-12.9 13784-1) NRBC/100 WBC (test See_Comment [Automat ed code = 2732854570) message] The system which generated this result transmitted reference range : 0.0 - 10.0 /100 WBCs. The refer ence range was not u sed to interpret th is result as normal/abnormal . NRBC x10^3 (test code <0.01 See_Comment [Auto mated = 8513820439) message] The s ystem which generated this result transmitted reference range : 10*3/?L. The reference range was not used to interpret this result as normal/abnormal . GRAN MAT (NEUT) % 77.0 % (test code = 770-8) IMM GRAN % (test code 1.80 % = 4510016625) LYMPH % (test code = 6.6 % 736-9) MONO % (test code = 9.9 % 5905-5) EOS % (test code = 4.4 % 713-8) BASO % (test code = 0.3 % 706-2) GRAN MAT x10^3(ANC) 4.77 10*3/uL 1.88-7.09 (test code = 1764459296) IMM GRAN x10^3 (test 0.11 10*3/uL 0.00-0.06 H code = 5504862229) LYMPH x10^3 (test code 0.41 10*3/uL 1.32-3.29 L = 731-0) MONO x10^3 (test code 0.61 10*3/uL 0.33-0.92 = 742-7) EOS x10^3 (test code = 0.27 10*3/uL 0.03-0.39 711-2) BASO x10^3 (test code <0.03 0.01-0.07 = 704-7) Lab Interpretation Abnormal (test code = 09123-3) [facility] WITH [id number] 12:23:50 Test Item Value Reference Range Interpretation Comments WBC (test code = See_Comment [Automated 6690-2) message] The sy stem which generated this result transmitted reference range : 4.30 - 11.10 10*3/?L. The reference range was not used to interpret this result as normal/abnormal . RBC (test code = See_Comment [Automated 789-8) message] The sy stem which generated this result transmitted reference range : 3.93 - 5.25 10*6/?L. The reference range was not used to interpret this result as normal/abnormal . HGB (test code = 12.3 g/dL 11.6-15.0 718-7) HCT (test code = 37.8 % 35.7-45.2 4544-3) MCV (test code = 84.0 fL 80.6-95.5 787-2) MCH (test code = 27.3 pg 25.9-32.8 785-6) MCHC (test code = 32.5 g/dL 31.6-35.1 786-4) RDW-SD (test code = 44.0 fL 39.0-49.9 76164-5) RDW-CV (test code = 14.2 % 12.0-15.5 788-0) PLT (test code = See_Comment [Automated 777-3) message] The sy stem which generated this result transmitted reference range : 166 - 358 10*3/ ?L. The reference r ilan was not used to interpret this result as normal/abnormal . MPV (test code = 11.4 fL 9.5-12.9 54918-2) NRBC/100 WBC (test See_Comment [Automat ed code = 1501381969) message] The system which generated this result transmitted reference range : 0.0 - 10.0 /100 WBCs. The refer ence range was not u sed to interpret th is result as normal/abnormal . NRBC x10^3 (test code <0.01 See_Comment [Auto mated = 2335109287) message] The s ystem which generated this result transmitted reference range : 10*3/?L. The reference range was not used to interpret this result as normal/abnormal . GRAN MAT (NEUT) % 77.0 % (test code = 770-8) IMM GRAN % (test code 1.80 % = 0387421244) LYMPH % (test code = 6.6 % 736-9) MONO % (test code = 9.9 % 5905-5) EOS % (test code = 4.4 % 713-8) BASO % (test code = 0.3 % 706-2) GRAN MAT x10^3(ANC) 4.77 10*3/uL 1.88-7.09 (test code = 6373718420) IMM GRAN x10^3 (test 0.11 10*3/uL 0.00-0.06 H code = 8170453839) LYMPH x10^3 (test code 0.41 10*3/uL 1.32-3.29 L = 731-0) MONO x10^3 (test code 0.61 10*3/uL 0.33-0.92 = 742-7) EOS x10^3 (test code = 0.27 10*3/uL 0.03-0.39 711-2) BASO x10^3 (test code <0.03 0.01-0.07 = 704-7) Lab Interpretation Abnormal (test code = 26958-6) [facility] GLUCOSE (AUTOMATED)2021-03-27 11:45:51 Test Item Value Reference Range Interpretation Comments POCT GLU (test code = 212 mg/dL 70-110 H Notifi ed Provider [id number]) Lab Interpretation (test Abnormal code = 26161-0) [facility] GLUCOSE (AUTOMATED)2021-03-27 11:45:51 Test Item Value Reference Range Interpretation Comments POCT GLU (test code = 212 mg/dL 70-110 H Notifi ed Provider [id number]) Lab Interpretation (test Abnormal code = 34183-3) [facility] GLUCOSE (AUTOMATED)2021-03-26 23:44:19 Test Item Value Reference Range Interpretation Comments POCT GLU (test code = 2756414113) 234 mg/dL 70-110 H Lab Interpretation (test code = Abnormal 58007-6) [facility] GLUCOSE (AUTOMATED)2021-03-26 23:44:19 Test Item Value Reference Range Interpretation Comments POCT GLU (test code = 1479505672) 234 mg/dL 70-110 H Lab Interpretation (test code = Abnormal 68155-1) [facility] GLUCOSE (AUTOMATED)2021-03-26 22:48:08 Test Item Value Reference Range Interpretation Comments POCT GLU (test code = 8155380032) 225 mg/dL 70-110 H Lab Interpretation (test code = Abnormal 19635-9[facility] 22:48:08 Test Item Value Reference Range Interpretation Comments POCT GLU (test code = 7844829706) 225 mg/dL 70-110 H Lab Interpretation (test code = Abnormal 87775-9) [facility] GLUCOSE (AUTOMATED)2021-03-26 17:15:22 Test Item Value Reference Range Interpretation Comments POCT GLU (test code = 0323281302) 189 mg/dL 70-110 H Lab Interpretation (test code = Abnormal 64723-9) [facility] GLUCOSE (AUTOMATED)2021-03-26 17:15:22 Test Item Value Reference Range Interpretation Comments POCT GLU (test code = 6129132622) 189 mg/dL 70-110 H Lab Interpretation (test code = Abnormal 50069-9) [facility] GLUCOSE (AUTOMATED)2021-03-26 13:14:34 Test Item Value Reference Range Interpretation Comments POCT GLU (test code = 9307820847) 187 mg/dL 70-110 H Lab Interpretation (test code = Abnormal 79477-6) [facility] GLUCOSE (AUTOMATED)2021-03-26 13:14:34 Test Item Value Reference Range Interpretation Comments POCT GLU (test code = 6059909754) 187 mg/dL 70-110 H Lab Interpretation (test code = Abnormal 42686-6) [facility] GLUCOSE (AUTOMATED)2021-03-25 22:03:35 Test Item Value Reference Range Interpretation Comments POCT GLU (test code = 4927676542) 161 mg/dL 70-110 H Lab Interpretation (test code = Abnormal 08578-8) [facility]:03:35 Test Item Value Reference Range Interpretation Comments POCT GLU (test code = 8740173326) 161 mg/dL 70-110 H Lab Interpretation (test code = Abnormal 38548-3) [facility] GLUCOSE (AUTOMATED)2021-03-25 16:12:14 Test Item Value Reference Range Interpretation Comments POCT GLU (test code = 0392631020) 182 mg/dL 70-110 H Lab Interpretation (test code = Abnormal 10920-2) [facility] GLUCOSE (AUTOMATED)2021-03-25 16:12:14 Test Item Value Reference Range Interpretation Comments POCT GLU (test code = 5011162985) 182 mg/dL 70-110 H Lab Interpretation (test code = Abnormal 10902-0) [facility] GLUCOSE (AUTOMATED)2021-03-25 13:37:16 Test Item Value Reference Range Interpretation Comments POCT GLU (test code = 8038994486) 140 mg/dL 70-110 H Lab Interpretation (test code = Abnormal 51744-2) [facility] GLUCOSE (AUTOMATED)2021-03-25 13:37:16 Test Item Value Reference Range Interpretation Comments POCT GLU (test code = 7492871437) 140 mg/dL 70-110 H Lab Interpretation (test code = Abnormal 61771-0) [facility] METABOLIC PANEL (NA, K, CL, CO2, GLUCOSE, BUN, CREATININE, CA)2021-03-25 11:51:11 Test Item Value Reference Range Interpretation Comments NA (test code = 130 mmol/L 135-145 L 2974164327) K (test code = 4.3 mmol/L 3.5-5.0 6207773364) CL (test code = 93 mmol/L 98-108 L 4609492122) CO2 TOTAL (test code = 31 mmol/L 23-31 0665302790) AGAP (test code = 2-16 6024319614) BUN (test code = 25 mg/dL 7-23 H 8484753540) GLUCOSE (test code = 141 mg/dL 70-110 H 7173321857) CREATININE (test code = 0.80 mg/dL 0.50-1.04 7375298747) CALCIUM (test code = 8.9 mg/dL 8.6-10.6 7755471484) eGFR (test code = mL/min/1.73m2 2101569951) KENA (test code = KENA) Association of Glomerular Filtration Rate (GFR) and Staging of Kidney Disease* + --+ --+ ------+| GFR (mL/min/1.73 m2) ?| With Kidney Damage ?| ?Without Kidney Damage+ --------+ --------+ +| ?>90 ?| ?Stage one ?| ? Normal ?+ ---+ ---+ -------+| ?60-89 ?| ?Stage two ?| ? Decreased GFR ? + --+ --+ ------+| ?30-59 ?| ?Stage three ?| ? Stage three ? + --+ --+ ------+| ?15-29 ?| ?Stage four ? | ? Stage four ?+ ---+ ---+ -------+| ?<15 (or dialysis) ? ?| ?Stage five ? | ? Stage five ?+ ---+ ---+ -------+ *Each stage assumes the associated GFR level has been in effect for at least three months. ?Stages 1 to 5, with or without kidney disease, indicate chronic kidney disease. Notes: Determination of stages one and two (with eGFR >59mL/min/1.73 m2) requires estimation of kidney damage for at least three months as defined by structural or functional abnormalities of the kidney, manifested by either:Pathological abnormalities or Markers of kidney damage (including abnormalities in the composition of the blood or urine or abnormalities in imaging tests). Lab Interpretation Abnormal (test code = 84294-5) [facility] METABOLIC PANEL (NA, K, CL, CO2, GLUCOSE, BUN, CREATININE, CA)2021-03-25 11:51:11 Test Item Value Reference Range Interpretation Comments NA (test code = 130 mmol/L 135-145 L 6641172783) K (test code = 4.3 mmol/L 3.5-5.0 4282689813) CL (test code = 93 mmol/L 98-108 L 7220891780) CO2 TOTAL (test code = 31 mmol/L 23-31 6430319682) AGAP (test code = 2-16 0425051472) BUN (test code = 25 mg/dL 7-23 H 1767935309) GLUCOSE (test code = 141 mg/dL 70-110 H 1498361422) CREATININE (test code = 0.80 mg/dL 0.50-1.04 2278542165) CALCIUM (test code = 8.9 mg/dL 8.6-10.6 8172103166) eGFR (test code = mL/min/1.73m2 7608407805) KENA (test code = KENA) Association of Glomerular Filtration Rate (GFR) and Staging of Kidney Disease* + --+ --+ ------+| GFR (mL/min/1.73 m2) ?| With Kidney Damage ?| ?Without Kidney Damage+ --------+ --------+ +| ?>90 ?| ?Stage one ?| ? Normal ?+ ---+ ---+ -------+| ?60-89 ?| ?Stage two ?| ? Decreased GFR ? + --+ --+ ------+| ?30-59 ?| ?Stage three ?| ? Stage three ? + --+ --+ ------+| ?15-29 ?| ?Stage four ? | ? Stage four ?+ ---+ ---+ -------+| ?<15 (or dialysis) ? ?| ?Stage five ? | ? Stage five ?+ ---+ ---+ -------+ *Each stage assumes the associated GFR level has been in effect for at least three months. ?Stages 1 to 5, with or without kidney disease, indicate chronic kidney disease. Notes: Determination of stages one and two (with eGFR >59mL/min/1.73 m2) requires estimation of kidney damage for at least three months as defined by structural or functional abnormalities of the kidney, manifested by either:Pathological abnormalities or Markers of kidney damage (including abnormalities in the composition of the blood or urine or abnormalities in imaging tests). Lab Interpretation Abnormal (test code = 24426-7) [facility] WITH [id number] 11:28:10 Test Item Value Reference Range Interpretation Comments WBC (test code = See_Comment [Automated 2821-2) message] The sy stem which generated this result transmitted reference range : 4.30 - 11.10 10*3/?L. The reference range was not used to interpret this result as normal/abnormal . RBC (test code = See_Comment [Automated 146-6) message] The sy stem which generated this result transmitted reference range : 3.93 - 5.25 10*6/?L. The reference range was not used to interpret this result as normal/abnormal . HGB (test code = 11.5 g/dL 11.6-15.0 L 718-7) HCT (test code = 36.1 % 35.7-45.2 4544-3) MCV (test code = 85.1 fL 80.6-95.5 787-2) MCH (test code = 27.1 pg 25.9-32.8 785-6) MCHC (test code = 31.9 g/dL 31.6-35.1 786-4) RDW-SD (test code = 45.0 fL 39.0-49.9 02626-6) RDW-CV (test code = 14.5 % 12.0-15.5 788-0) PLT (test code = See_Comment [Automated 777-3) message] The sy stem which generated this result transmitted reference range : 166 - 358 10*3/ ?L. The reference r ilan was not used to interpret this result as normal/abnormal . MPV (test code = 11.6 fL 9.5-12.9 08744-9) NRBC/100 WBC (test See_Comment [Automat ed code = 7576203481) message] The system which generated this result transmitted reference range : 0.0 - 10.0 /100 WBCs. The refer ence range was not u sed to interpret th is result as normal/abnormal . NRBC x10^3 (test code <0.01 See_Comment [Auto mated = 3132376919) message] The s ystem which generated this result transmitted reference range : 10*3/?L. The reference range was not used to interpret this result as normal/abnormal . GRAN MAT (NEUT) % 71.9 % (test code = 770-8) IMM GRAN % (test code 1.00 % = 6491333722) LYMPH % (test code = 8.2 % 736-9) MONO % (test code = 10.5 % 5905-5) EOS % (test code = 8.0 % 713-8) BASO % (test code = 0.4 % 706-2) GRAN MAT x10^3(ANC) 3.51 10*3/uL 1.88-7.09 (test code = 5846408072) IMM GRAN x10^3 (test 0.05 10*3/uL 0.00-0.06 code = 5024600144) LYMPH x10^3 (test code 0.40 10*3/uL 1.32-3.29 L = 731-0) MONO x10^3 (test code 0.51 10*3/uL 0.33-0.92 = 742-7) EOS x10^3 (test code = 0.39 10*3/uL 0.03-0.39 711-2) BASO x10^3 (test code <0.03 0.01-0.07 = 704-7) Lab Interpretation Abnormal (test code = 32618-3) [facility] WITH [id number] 11:28:10 Test Item Value Reference Range Interpretation Comments WBC (test code = See_Comment [Automated 0190-2) message] The sy stem which generated this result transmitted reference range : 4.30 - 11.10 10*3/?L. The reference range was not used to interpret this result as normal/abnormal . RBC (test code = See_Comment [Automated 959-8) message] The sy stem which generated this result transmitted reference range : 3.93 - 5.25 10*6/?L. The reference range was not used to interpret this result as normal/abnormal . HGB (test code = 11.5 g/dL 11.6-15.0 L 718-7) HCT (test code = 36.1 % 35.7-45.2 4544-3) MCV (test code = 85.1 fL 80.6-95.5 787-2) MCH (test code = 27.1 pg 25.9-32.8 785-6) MCHC (test code = 31.9 g/dL 31.6-35.1 786-4) RDW-SD (test code = 45.0 fL 39.0-49.9 95984-5) RDW-CV (test code = 14.5 % 12.0-15.5 788-0) PLT (test code = See_Comment [Automated 777-3) message] The sy stem which generated this result transmitted reference range : 166 - 358 10*3/ ?L. The reference r ilan was not used to interpret this result as normal/abnormal . MPV (test code = 11.6 fL 9.5-12.9 65618-5) NRBC/100 WBC (test See_Comment [Automat ed code = 2937556656) message] The system which generated this result transmitted reference range : 0.0 - 10.0 /100 WBCs. The refer ence range was not u sed to interpret th is result as normal/abnormal . NRBC x10^3 (test code <0.01 See_Comment [Auto mated = 2188324557) message] The s ystem which generated this result transmitted reference range : 10*3/?L. The reference range was not used to interpret this result as normal/abnormal . GRAN MAT (NEUT) % 71.9 % (test code = 770-8) IMM GRAN % (test code 1.00 % = 4990903295) LYMPH % (test code = 8.2 % 736-9) MONO % (test code = 10.5 % 5905-5) EOS % (test code = 8.0 % 713-8) BASO % (test code = 0.4 % 706-2) GRAN MAT x10^3(ANC) 3.51 10*3/uL 1.88-7.09 (test code = 2770699729) IMM GRAN x10^3 (test 0.05 10*3/uL 0.00-0.06 code = 8841081169) LYMPH x10^3 (test code 0.40 10*3/uL 1.32-3.29 L = 731-0) MONO x10^3 (test code 0.51 10*3/uL 0.33-0.92 = 742-7) EOS x10^3 (test code = 0.39 10*3/uL 0.03-0.39 711-2) BASO x10^3 (test code <0.03 0.01-0.07 = 704-7) Lab Interpretation Abnormal (test code = 54908-0) [facility] GLUCOSE (AUTOMATED)2021-03-25 01:35:21 Test Item Value Reference Range Interpretation Comments POCT GLU (test code = 6382200907) 209 mg/dL 70-110 H Lab Interpretation (test code = Abnormal 40250-8) [facility] GLUCOSE (AUTOMATED)2021-03-25 01:35:21 Test Item Value Reference Range Interpretation Comments POCT GLU (test code = 6022329347) 209 mg/dL 70-110 H Lab Interpretation (test code = Abnormal 84487-8) [facility] 21:36:03 Test Item Value Reference Range Interpretation Comments POCT GLU (test code = 5327412619) 235 mg/dL 70-110 H Lab Interpretation (test code = Abnormal 88749-1) [facility] 21:36:03 Test Item Value Reference Range Interpretation Comments POCT GLU (test code = 2345900343) 151 mg/dL 70-110 H Lab Interpretation (test code = Abnormal 23844-8) [facility] GLUCOSE (AUTOMATED)2021-03-24 21:36:03 Test Item Value Reference Range Interpretation Comments POCT GLU (test code = 7436634256) 235 mg/dL 70-110 H Lab Interpretation (test code = Abnormal 05083-2) [facility] GLUCOSE (AUTOMATED)2021-03-24 21:36:03 Test Item Value Reference Range Interpretation Comments POCT GLU (test code = 5547872673) 151 mg/dL 70-110 H Lab Interpretation (test code = Abnormal 03703-0) [facility] GLUCOSE (AUTOMATED)2021-03-24 21:29:46 Test Item Value Reference Range Interpretation Comments POCT GLU (test code = 1766738634) 265 mg/dL 70-110 H Lab Interpretation (test code = Abnormal 69147-5) [facility] GLUCOSE (AUTOMATED)2021-03-24 21:29:46 Test Item Value Reference Range Interpretation Comments POCT GLU (test code = 3950517813) 265 mg/dL 70-110 H Lab Interpretation (test code = Abnormal 07921-9) [facility] GLUCOSE (AUTOMATED)2021-03-24 17:05:33 Test Item Value Reference Range Interpretation Comments POCT GLU (test code = 4353123228) 220 mg/dL 70-110 H Lab Interpretation (test code = Abnormal 68414-9) [facility] GLUCOSE (AUTOMATED)2021-03-24 17:05:33 Test Item Value Reference Range Interpretation Comments POCT GLU (test code = 8913765552) 220 mg/dL 70-110 H Lab Interpretation (test code = Abnormal 80026-6) [facility] GLUCOSE (AUTOMATED)2021-03-23 22:37:27 Test Item Value Reference Range Interpretation Comments POCT GLU (test code = 0422220828) 244 mg/dL 70-110 H Lab Interpretation (test code = Abnormal 72093-6) [facility] GLUCOSE (AUTOMATED)2021-03-23 22:37:27 Test Item Value Reference Range Interpretation Comments POCT GLU (test code = 5040535822) 244 mg/dL 70-110 H Lab Interpretation (test code = Abnormal 50523-9) [facility] [id number] 16:03:03 Test Item Value Reference Interpretation Comments Range TROPONIN I (test 0.003 ng/mL See_Comment [Automated code = 4442139815) message] The system which generated this result transmitted reference range : <=0.034. The reference range was not used to interpret this result as normal/abnormal . KENA (test code = Reference (Normal) KENA) Range (defined by the 99th percentile reference limit): <= 0.034 ng/mL Note: Cardiac troponin begins to rise 3-4 hours after the onset of ischemia. Repeat in 4-6 hours if the sample was drawn within 3-4 hours of the onset of the symptom and found normal. Diagnosis of myocardial injury is made with acute changes in cTn concentrations with at least one serial sample above the 99th percentile upper reference limit (URL), taken together with the patient's clinical presentation. Biotin has been reported to cause a negative bias, interpret results relative to patient's use of biotin. Lab Interpretation Normal (test code = 86306-9) [facility] [id number] 16:03:03 Test Item Value Reference Interpretation Comments Range TROPONIN I (test 0.003 ng/mL See_Comment [Automated code = 1577265051) message] The system which generated this result transmitted reference range : <=0.034. The reference range was not used to interpret this result as normal/abnormal . KENA (test code = Reference (Normal) KENA) Range (defined by the 99th percentile reference limit): <= 0.034 ng/mL Note: Cardiac troponin begins to rise 3-4 hours after the onset of ischemia. Repeat in 4-6 hours if the sample was drawn within 3-4 hours of the onset of the symptom and found normal. Diagnosis of myocardial injury is made with acute changes in cTn concentrations with at least one serial sample above the 99th percentile upper reference limit (URL), taken together with the patient's clinical presentation. Biotin has been reported to cause a negative bias, interpret results relative to patient's use of biotin. Lab Interpretation Normal (test code = 61312-7) [id number] 15:59:37 Test Item Value Reference Range Interpretation Comments NT-proBNP (test code 1390 pg/mL See_Comment H [Autom ated = 9925575486) message] The system which generated this result transmitted reference range : <=450. The reference range was not used to interpret this result as normal/abnormal . KENA (test code = KENA) Biotin has been reported to cause a negative bias, interpret results relative to patient's use of biotin. Lab Interpretation Abnormal (test code = 71669-6) [facility] [id number] 15:59:37 Test Item Value Reference Range Interpretation Comments NT-proBNP (test code 1390 pg/mL See_Comment H [Autom ated = 6483462156) message] The system which generated this result transmitted reference range : <=450. The reference range was not used to interpret this result as normal/abnormal . KENA (test code = KENA) Biotin has been reported to cause a negative bias, interpret results relative to patient's use of biotin. Lab Interpretation Abnormal (test code = 15706-2) [facility] ([id number])2021-03-23 15:51:33 Test Item Value Reference Range Interpretation Comments NA (test code = 132 mmol/L 135-145 L 4356412098) K (test code = 4.5 mmol/L 3.5-5.0 0658674159) CL (test code = 95 mmol/L 98-108 L 9394895212) CO2 TOTAL (test code = 28 mmol/L 23-31 1988859136) AGAP (test code = 2-16 2568860165) BUN (test code = 23 mg/dL 7-23 1638837873) GLUCOSE (test code = 295 mg/dL 70-110 H 8206747569) CREATININE (test code = 0.79 mg/dL 0.50-1.04 1427839077) TOTAL BILI (test code = 0.9 mg/dL 0.1-1.9 6718448987) CALCIUM (test code = 8.8 mg/dL 8.6-10.6 2951351242) T PROTEIN (test code = 7.1 g/dL 6.3-8.2 5764559918) ALBUMIN (test code = 3.8 g/dL 3.5-5.0 6216001495) ALK PHOS (test code = 135 U/L 34-122 H 4953023944) ALTv (test code = 21 U/L 5-35 1742-6) AST(SGOT) (test code = 25 U/L 13-40 8375465498) eGFR (test code = mL/min/1.73m2 6430785965) KENA (test code = KENA) Association of Glomerular Filtration Rate (GFR) and Staging of Kidney Disease* + --+ --+ ------+| GFR (mL/min/1.73 m2) ?| With Kidney Damage ?| ?Without Kidney Damage+ --------+ --------+ +| ?>90 ?| ?Stage one ?| ? Normal ?+ ---+ ---+ -------+| ?60-89 ?| ?Stage two ?| ? Decreased GFR ? + --+ --+ ------+| ?30-59 ?| ?Stage three ?| ? Stage three ? + --+ --+ ------+| ?15-29 ?| ?Stage four ? | ? Stage four ?+ ---+ ---+ -------+| ?<15 (or dialysis) ? ?| ?Stage five ? | ? Stage five ?+ ---+ ---+ -------+ *Each stage assumes the associated GFR level has been in effect for at least three months. ?Stages 1 to 5, with or without kidney disease, indicate chronic kidney disease. Notes: Determination of stages one and two (with eGFR >59mL/min/1.73 m2) requires estimation of kidney damage for at least three months as defined by structural or functional abnormalities of the kidney, manifested by either:Pathological abnormalities or Markers of kidney damage (including abnormalities in the composition of the blood or urine or abnormalities in imaging tests). Lab Interpretation Abnormal (test code = 34974-9) [facility] ([id number])2021-03-23 15:51:33 Test Item Value Reference Range Interpretation Comments NA (test code = 132 mmol/L 135-145 L 3773534789) K (test code = 4.5 mmol/L 3.5-5.0 7586779745) CL (test code = 95 mmol/L 98-108 L 1984023619) CO2 TOTAL (test code = 28 mmol/L 23-31 7798449329) AGAP (test code = 2-16 2302876663) BUN (test code = 23 mg/dL 7-23 5982374698) GLUCOSE (test code = 295 mg/dL 70-110 H 6709689010) CREATININE (test code = 0.79 mg/dL 0.50-1.04 6603638569) TOTAL BILI (test code = 0.9 mg/dL 0.1-1.8 0629336683) CALCIUM (test code = 8.8 mg/dL 8.6-10.6 2102056696) T PROTEIN (test code = 7.1 g/dL 6.3-8.2 7487272082) ALBUMIN (test code = 3.8 g/dL 3.5-5.0 7274899569) ALK PHOS (test code = 135 U/L 34-122 H 0535123140) ALTv (test code = 21 U/L 5-35 1742-6) AST(SGOT) (test code = 25 U/L 13-40 8380171813) eGFR (test code = mL/min/1.73m2 9523771916) KENA (test code = KENA) Association of Glomerular Filtration Rate (GFR) and Staging of Kidney Disease* + --+ --+ ------+| GFR (mL/min/1.73 m2) ?| With Kidney Damage ?| ?Without Kidney Damage+ --------+ --------+ +| ?>90 ?| ?Stage one ?| ? Normal ?+ ---+ ---+ -------+| ?60-89 ?| ?Stage two ?| ? Decreased GFR ? + --+ --+ ------+| ?30-59 ?| ?Stage three ?| ? Stage three ? + --+ --+ ------+| ?15-29 ?| ?Stage four ? | ? Stage four ?+ ---+ ---+ -------+| ?<15 (or dialysis) ? ?| ?Stage five ? | ? Stage five ?+ ---+ ---+ -------+ *Each stage assumes the associated GFR level has been in effect for at least three months. ?Stages 1 to 5, with or without kidney disease, indicate chronic kidney disease. Notes: Determination of stages one and two (with eGFR >59mL/min/1.73 m2) requires estimation of kidney damage for at least three months as defined by structural or functional abnormalities of the kidney, manifested by either:Pathological abnormalities or Markers of kidney damage (including abnormalities in the composition of the blood or urine or abnormalities in imaging tests). Lab Interpretation Abnormal (test code = 39948-3) [facility] WITH [id number] 15:39:13 Test Item Value Reference Range Interpretation Comments WBC (test code = See_Comment [Automated 4805-2) message] The sy stem which generated this result transmitted reference range : 4.30 - 11.10 10*3/?L. The reference range was not used to interpret this result as normal/abnormal . RBC (test code = See_Comment [Automated 489-8) message] The sy stem which generated this result transmitted reference range : 3.93 - 5.25 10*6/?L. The reference range was not used to interpret this result as normal/abnormal . HGB (test code = 12.4 g/dL 11.6-15.0 718-7) HCT (test code = 39.2 % 35.7-45.2 4544-3) MCV (test code = 85.8 fL 80.6-95.5 787-2) MCH (test code = 27.1 pg 25.9-32.8 785-6) MCHC (test code = 31.6 g/dL 31.6-35.1 786-4) RDW-SD (test code = 46.4 fL 39.0-49.9 64192-3) RDW-CV (test code = 14.7 % 12.0-15.5 788-0) PLT (test code = See_Comment [Automated 055-3) message] The sy stem which generated this result transmitted reference range : 166 - 358 10*3/ ?L. The reference r ilan was not used to interpret this result as normal/abnormal . MPV (test code = 11.0 fL 9.5-12.9 47688-6) NRBC/100 WBC (test See_Comment [Automat ed code = 1888869890) message] The system which generated this result transmitted reference range : 0.0 - 10.0 /100 WBCs. The refer ence range was not u sed to interpret th is result as normal/abnormal . NRBC x10^3 (test code <0.01 See_Comment [Auto mated = 4615391807) message] The s ystem which generated this result transmitted reference range : 10*3/?L. The reference range was not used to interpret this result as normal/abnormal . GRAN MAT (NEUT) % 86.1 % (test code = 770-8) IMM GRAN % (test code 0.90 % = 5357012535) LYMPH % (test code = 3.2 % 736-9) MONO % (test code = 5.3 % 5905-5) EOS % (test code = 4.2 % 713-8) BASO % (test code = 0.3 % 706-2) GRAN MAT x10^3(ANC) 6.81 10*3/uL 1.88-7.09 (test code = 7209432511) IMM GRAN x10^3 (test 0.07 10*3/uL 0.00-0.06 H code = 2195854415) LYMPH x10^3 (test code 0.25 10*3/uL 1.32-3.29 L = 731-0) MONO x10^3 (test code 0.42 10*3/uL 0.33-0.92 = 742-7) EOS x10^3 (test code = 0.33 10*3/uL 0.03-0.39 711-2) BASO x10^3 (test code <0.03 0.01-0.07 = 704-7) Lab Interpretation Abnormal (test code = 46827-0) [facility] WITH [id number] 15:39:13 Test Item Value Reference Range Interpretation Comments WBC (test code = See_Comment [Automated 6690-2) message] The sy stem which generated this result transmitted reference range : 4.30 - 11.10 10*3/?L. The reference range was not used to interpret this result as normal/abnormal . RBC (test code = See_Comment [Automated 789-8) message] The sy stem which generated this result transmitted reference range : 3.93 - 5.25 10*6/?L. The reference range was not used to interpret this result as normal/abnormal . HGB (test code = 12.4 g/dL 11.6-15.0 718-7) HCT (test code = 39.2 % 35.7-45.2 4544-3) MCV (test code = 85.8 fL 80.6-95.5 787-2) MCH (test code = 27.1 pg 25.9-32.8 785-6) MCHC (test code = 31.6 g/dL 31.6-35.1 786-4) RDW-SD (test code = 46.4 fL 39.0-49.9 04639-2) RDW-CV (test code = 14.7 % 12.0-15.5 788-0) PLT (test code = See_Comment [Automated 777-3) message] The sy stem which generated this result transmitted reference range : 166 - 358 10*3/ ?L. The reference r ilan was not used to interpret this result as normal/abnormal . MPV (test code = 11.0 fL 9.5-12.9 17618-0) NRBC/100 WBC (test See_Comment [Automat ed code = 3469713071) message] The system which generated this result transmitted reference range : 0.0 - 10.0 /100 WBCs. The refer ence range was not u sed to interpret th is result as normal/abnormal . NRBC x10^3 (test code <0.01 See_Comment [Auto mated = 6181842497) message] The s ystem which generated this result transmitted reference range : 10*3/?L. The reference range was not used to interpret this result as normal/abnormal . GRAN MAT (NEUT) % 86.1 % (test code = 770-8) IMM GRAN % (test code 0.90 % = 4360966639) LYMPH % (test code = 3.2 % 736-9) MONO % (test code = 5.3 % 5905-5) EOS % (test code = 4.2 % 713-8) BASO % (test code = 0.3 % 706-2) GRAN MAT x10^3(ANC) 6.81 10*3/uL 1.88-7.09 (test code = 5280537263) IMM GRAN x10^3 (test 0.07 10*3/uL 0.00-0.06 H code = 6597166923) LYMPH x10^3 (test code 0.25 10*3/uL 1.32-3.29 L = 731-0) MONO x10^3 (test code 0.42 10*3/uL 0.33-0.92 = 742-7) EOS x10^3 (test code = 0.33 10*3/uL 0.03-0.39 711-2) BASO x10^3 (test code <0.03 0.01-0.07 = 704-7) Lab Interpretation Abnormal (test code = 58355-1) [facility] GLUCOSE (AUTOMATED)2021-03-17 22:20:52 Test Item Value Reference Range Interpretation Comments POCT GLU (test code = 296 mg/dL 70-110 H Notifi ed Provider [id number]) Lab Interpretation (test Abnormal code = 46194-5) [facility] GLUCOSE (AUTOMATED)2021-03-17 22:20:52 Test Item Value Reference Range Interpretation Comments POCT GLU (test code = 296 mg/dL 70-110 H Notifi ed Provider [id number]) Lab Interpretation (test Abnormal code = 09970-9) [facility] GLUCOSE (AUTOMATED)2021-03-17 16:52:36 Test Item Value Reference Range Interpretation Comments POCT GLU (test code = 2741271303) 139 mg/dL 70-110 H Lab Interpretation (test code = Abnormal 35687-6) [facility] GLUCOSE (AUTOMATED)2021-03-17 16:52:36 Test Item Value Reference Range Interpretation Comments POCT GLU (test code = 1027248215) 139 mg/dL 70-110 H Lab Interpretation (test code = Abnormal 95347-9) [facility]-REACTIVE [id number] 15:24:26 Test Item Value Reference Range Interpretation Comments CRP (test code = 9511675944) 0.8 mg/dL <0.8 H Lab Interpretation (test code = Abnormal 91477-3) [facility]-REACTIVE [id number] 15:24:26 Test Item Value Reference Range Interpretation Comments CRP (test code = 3045964854) 0.8 mg/dL <0.8 H Lab Interpretation (test code = Abnormal 15920-7) [facility] GLUCOSE (AUTOMATED)2021-03-17 13:16:28 Test Item Value Reference Range Interpretation Comments POCT GLU (test code = 6900066587) 141 mg/dL 70-110 H Lab Interpretation (test code = Abnormal 00276-5) [facility] GLUCOSE (AUTOMATED)2021-03-17 13:16:28 Test Item Value Reference Range Interpretation Comments POCT GLU (test code = 2802536185) 141 mg/dL 70-110 H Lab Interpretation (test code = Abnormal 86769-5) [facility] Metabolic Panel (NA, K, CL, CO2, GLUCOSE, BUN, CREATININE, CA)2021-03-17 11:17:30 Test Item Value Reference Range Interpretation Comments NA (test code = 133 mmol/L 135-145 L 0161011812) K (test code = 4.8 mmol/L 3.5-5.0 6995499359) CL (test code = 94 mmol/L 98-108 L 9418364102) CO2 TOTAL (test code = 31 mmol/L 23-31 2891420924) AGAP (test code = 2-16 2456298255) BUN (test code = 19 mg/dL 7-23 9024475422) GLUCOSE (test code = 172 mg/dL 70-110 H 7101955905) CREATININE (test code = 0.67 mg/dL 0.50-1.04 8708624037) CALCIUM (test code = 8.9 mg/dL 8.6-10.6 5844600042) eGFR (test code = mL/min/1.73m2 8286372186) KENA (test code = KENA) Association of Glomerular Filtration Rate (GFR) and Staging of Kidney Disease* + --+ --+ ------+| GFR (mL/min/1.73 m2) ?| With Kidney Damage ?| ?Without Kidney Damage+ --------+ --------+ +| ?>90 ?| ?Stage one ?| ? Normal ?+ ---+ ---+ -------+| ?60-89 ?| ?Stage two ?| ? Decreased GFR ? + --+ --+ ------+| ?30-59 ?| ?Stage three ?| ? Stage three ? + --+ --+ ------+| ?15-29 ?| ?Stage four ? | ? Stage four ?+ ---+ ---+ -------+| ?<15 (or dialysis) ? ?| ?Stage five ? | ? Stage five ?+ ---+ ---+ -------+ *Each stage assumes the associated GFR level has been in effect for at least three months. ?Stages 1 to 5, with or without kidney disease, indicate chronic kidney disease. Notes: Determination of stages one and two (with eGFR >59mL/min/1.73 m2) requires estimation of kidney damage for at least three months as defined by structural or functional abnormalities of the kidney, manifested by either:Pathological abnormalities or Markers of kidney damage (including abnormalities in the composition of the blood or urine or abnormalities in imaging tests). Lab Interpretation Abnormal (test code = 74526-5) [facility] [id number] 11:17:30 Test Item Value Reference Range Interpretation Comments MAGNESIUM (test code = 1849436030) 1.7 mg/dL 1.7-2.4 Lab Interpretation (test code = Normal 45842-7) [facility] (NA, K, CL, CO2, GLUCOSE, BUN, CREATININE, CA)2021-03-17 11:17:30 Test Item Value Reference Range Interpretation Comments NA (test code = 133 mmol/L 135-145 L 0111309040) K (test code = 4.8 mmol/L 3.5-5.0 9498841837) CL (test code = 94 mmol/L 98-108 L 3767576363) CO2 TOTAL (test code = 31 mmol/L 23-31 5483027867) AGAP (test code = 2-16 3317489276) BUN (test code = 19 mg/dL 7-23 2928843906) GLUCOSE (test code = 172 mg/dL 70-110 H 3820369879) CREATININE (test code = 0.67 mg/dL 0.50-1.04 3751968560) CALCIUM (test code = 8.9 mg/dL 8.6-10.6 4454282142) eGFR (test code = mL/min/1.73m2 5732956085) KENA (test code = KENA) Association of Glomerular Filtration Rate (GFR) and Staging of Kidney Disease* + --+ --+ ------+| GFR (mL/min/1.73 m2) ?| With Kidney Damage ?| ?Without Kidney Damage+ --------+ --------+ +| ?>90 ?| ?Stage one ?| ? Normal ?+ ---+ ---+ -------+| ?60-89 ?| ?Stage two ?| ? Decreased GFR ? + --+ --+ ------+| ?30-59 ?| ?Stage three ?| ? Stage three ? + --+ --+ ------+| ?15-29 ?| ?Stage four ? | ? Stage four ?+ ---+ ---+ -------+| ?<15 (or dialysis) ? ?| ?Stage five ? | ? Stage five ?+ ---+ ---+ -------+ *Each stage assumes the associated GFR level has been in effect for at least three months. ?Stages 1 to 5, with or without kidney disease, indicate chronic kidney disease. Notes: Determination of stages one and two (with eGFR >59mL/min/1.73 m2) requires estimation of kidney damage for at least three months as defined by structural or functional abnormalities of the kidney, manifested by either:Pathological abnormalities or Markers of kidney damage (including abnormalities in the composition of the blood or urine or abnormalities in imaging tests). Lab Interpretation Abnormal (test code = 51279-9) [facility] [id number] 11:17:30 Test Item Value Reference Range Interpretation Comments MAGNESIUM (test code = 3340242274) 1.7 mg/dL 1.7-2.4 Lab Interpretation (test code = Normal 46788-9) [facility] with [id number] 11:02:24 Test Item Value Reference Range Interpretation Comments WBC (test code = See_Comment L [Automated 6690-2) message] The sy stem which generated this result transmitted reference range : 4.30 - 11.10 10*3/?L. The reference range was not used to interpret this result as normal/abnormal . RBC (test code = See_Comment [Automated 789-8) message] The sy stem which generated this result transmitted reference range : 3.93 - 5.25 10*6/?L. The reference range was not used to interpret this result as normal/abnormal . HGB (test code = 11.5 g/dL 11.6-15.0 L 718-7) HCT (test code = 35.8 % 35.7-45.2 4544-3) MCV (test code = 86.3 fL 80.6-95.5 787-2) MCH (test code = 27.7 pg 25.9-32.8 785-6) MCHC (test code = 32.1 g/dL 31.6-35.1 786-4) RDW-SD (test code = 46.7 fL 39.0-49.9 88220-1) RDW-CV (test code = 14.7 % 12.0-15.5 788-0) PLT (test code = See_Comment [Automated 777-3) message] The sy stem which generated this result transmitted reference range : 166 - 358 10*3/ ?L. The reference r ilan was not used to interpret this result as normal/abnormal . MPV (test code = 11.6 fL 9.5-12.9 01075-3) NRBC/100 WBC (test See_Comment [Automat ed code = 2385955649) message] The system which generated this result transmitted reference range : 0.0 - 10.0 /100 WBCs. The refer ence range was not u sed to interpret th is result as normal/abnormal . NRBC x10^3 (test code <0.01 See_Comment [Auto mated = 8180321903) message] The s ystem which generated this result transmitted reference range : 10*3/?L. The reference range was not used to interpret this result as normal/abnormal . GRAN MAT (NEUT) % 77.8 % (test code = 770-8) IMM GRAN % (test code 0.40 % = 8160381595) LYMPH % (test code = 10.3 % 736-9) MONO % (test code = 11.5 % 5905-5) EOS % (test code = 0.0 % 713-8) BASO % (test code = 0.0 % 706-2) GRAN MAT x10^3(ANC) 1.97 10*3/uL 1.88-7.09 (test code = 7735033509) IMM GRAN x10^3 (test <0.03 0.00-0.06 code = 6646747455) LYMPH x10^3 (test code 0.26 10*3/uL 1.32-3.29 L = 731-0) MONO x10^3 (test code 0.29 10*3/uL 0.33-0.92 L = 742-7) EOS x10^3 (test code = <0.03 0.03-0.39 L 711-2) BASO x10^3 (test code <0.03 0.01-0.07 = 704-7) Lab Interpretation Abnormal (test code = 27568-3) [facility] with [id number] 11:02:24 Test Item Value Reference Range Interpretation Comments WBC (test code = See_Comment L [Automated 6690-2) message] The sy stem which generated this result transmitted reference range : 4.30 - 11.10 10*3/?L. The reference range was not used to interpret this result as normal/abnormal . RBC (test code = See_Comment [Automated 789-8) message] The sy stem which generated this result transmitted reference range : 3.93 - 5.25 10*6/?L. The reference range was not used to interpret this result as normal/abnormal . HGB (test code = 11.5 g/dL 11.6-15.0 L 718-7) HCT (test code = 35.8 % 35.7-45.2 4544-3) MCV (test code = 86.3 fL 80.6-95.5 787-2) MCH (test code = 27.7 pg 25.9-32.8 785-6) MCHC (test code = 32.1 g/dL 31.6-35.1 786-4) RDW-SD (test code = 46.7 fL 39.0-49.9 00019-5) RDW-CV (test code = 14.7 % 12.0-15.5 788-0) PLT (test code = See_Comment [Automated 777-3) message] The sy stem which generated this result transmitted reference range : 166 - 358 10*3/ ?L. The reference r ilan was not used to interpret this result as normal/abnormal . MPV (test code = 11.6 fL 9.5-12.9 19874-8) NRBC/100 WBC (test See_Comment [Automat ed code = 3831279504) message] The system which generated this result transmitted reference range : 0.0 - 10.0 /100 WBCs. The refer ence range was not u sed to interpret th is result as normal/abnormal . NRBC x10^3 (test code <0.01 See_Comment [Auto mated = 9911662320) message] The s ystem which generated this result transmitted reference range : 10*3/?L. The reference range was not used to interpret this result as normal/abnormal . GRAN MAT (NEUT) % 77.8 % (test code = 770-8) IMM GRAN % (test code 0.40 % = 7140635005) LYMPH % (test code = 10.3 % 736-9) MONO % (test code = 11.5 % 5905-5) EOS % (test code = 0.0 % 713-8) BASO % (test code = 0.0 % 706-2) GRAN MAT x10^3(ANC) 1.97 10*3/uL 1.88-7.09 (test code = 6412421717) IMM GRAN x10^3 (test <0.03 0.00-0.06 code = 2600136522) LYMPH x10^3 (test code 0.26 10*3/uL 1.32-3.29 L = 731-0) MONO x10^3 (test code 0.29 10*3/uL 0.33-0.92 L = 742-7) EOS x10^3 (test code = <0.03 0.03-0.39 L 711-2) BASO x10^3 (test code <0.03 0.01-0.07 = 704-7) Lab Interpretation Abnormal (test code = 43759-4) [facility] GLUCOSE (AUTOMATED)2021-03-17 02:24:14 Test Item Value Reference Range Interpretation Comments POCT GLU (test code = 3090714105) 230 mg/dL 70-110 H Lab Interpretation (test code = Abnormal 61742-5) [facility] GLUCOSE (AUTOMATED)2021-03-17 02:24:14 Test Item Value Reference Range Interpretation Comments POCT GLU (test code = 1465329010) 230 mg/dL 70-110 H Lab Interpretation (test code = Abnormal 64404-3) [facility] / [id number] 02:14:13 Test Item Value Reference Range Interpretation Comments PROTIME PATIENT (test See_Comment H [Auto mated message] code = 5964-2) The system [employer] generated this result transmitted ref erence range: 10.1 - 1 2.6 Seconds. The reference range was not used to int erpret this result as normal/abnormal . INR (test code = 6301-6) Nor mal INR <1.1; Warfarin Therap eutic range 2.0 to 3. 0 or 2.5 to 3.5, dep ending upon the indica tions. Lab Interpretation (test Abnormal code = 85094-0) [facility] / [id number] 02:14:13 Test Item Value Reference Range Interpretation Comments PROTIME PATIENT (test See_Comment H [Auto mated message] code = 5964-2) The system [employer] generated this result transmitted ref erence range: 10.1 - 1 2.6 Seconds. The reference range was not used to int erpret this result as normal/abnormal . INR (test code = 6301-6) Nor mal INR <1.1; Warfarin Therap eutic range 2.0 to 3. 0 or 2.5 to 3.5, dep ending upon the indica tions. Lab Interpretation (test Abnormal code = 29510-1) [facility] METABOLIC PANEL (NA, K, CL, CO2, GLUCOSE, BUN, CREATININE, CA)2021-03-17 02:12:36 Test Item Value Reference Range Interpretation Comments NA (test code = 131 mmol/L 135-145 L 0911709561) K (test code = 5.2 mmol/L 3.5-5.0 H 0348455049) CL (test code = 93 mmol/L 98-108 L 8744678208) CO2 TOTAL (test code = 32 mmol/L 23-31 H 4071521363) AGAP (test code = 2-16 8173966496) BUN (test code = 16 mg/dL 7-23 1550337270) GLUCOSE (test code = 252 mg/dL 70-110 H 4121578803) CREATININE (test code = 0.62 mg/dL 0.50-1.04 0280532106) CALCIUM (test code = 8.5 mg/dL 8.6-10.6 L 7942830730) eGFR (test code = mL/min/1.73m2 9522461889) KENA (test code = KENA) Association of Glomerular Filtration Rate (GFR) and Staging of Kidney Disease* + --+ --+ ------+| GFR (mL/min/1.73 m2) ?| With Kidney Damage ?| ?Without Kidney Damage+ --------+ --------+ +| ?>90 ?| ?Stage one ?| ? Normal ?+ ---+ ---+ -------+| ?60-89 ?| ?Stage two ?| ? Decreased GFR ? + --+ --+ ------+| ?30-59 ?| ?Stage three ?| ? Stage three ? + --+ --+ ------+| ?15-29 ?| ?Stage four ? | ? Stage four ?+ ---+ ---+ -------+| ?<15 (or dialysis) ? ?| ?Stage five ? | ? Stage five ?+ ---+ ---+ -------+ *Each stage assumes the associated GFR level has been in effect for at least three months. ?Stages 1 to 5, with or without kidney disease, indicate chronic kidney disease. Notes: Determination of stages one and two (with eGFR >59mL/min/1.73 m2) requires estimation of kidney damage for at least three months as defined by structural or functional abnormalities of the kidney, manifested by either:Pathological abnormalities or Markers of kidney damage (including abnormalities in the composition of the blood or urine or abnormalities in imaging tests). Lab Interpretation Abnormal (test code = 35754-2) [facility] METABOLIC PANEL (NA, K, CL, CO2, GLUCOSE, BUN, [place], [place])2021-03-17 02:12:36 Test Item Value Reference Range Interpretation Comments NA (test code = 131 mmol/L 135-145 L 8916481038) K (test code = 5.2 mmol/L 3.5-5.0 H 6299814408) CL (test code = 93 mmol/L 98-108 L 4812477039) CO2 TOTAL (test code = 32 mmol/L 23-31 H 7790344101) AGAP (test code = 2-16 4569240641) BUN (test code = 16 mg/dL 7-23 5720821538) GLUCOSE (test code = 252 mg/dL 70-110 H 1210955214) CREATININE (test code = 0.62 mg/dL 0.50-1.04 8850861535) CALCIUM (test code = 8.5 mg/dL 8.6-10.6 L 4478523669) eGFR (test code = mL/min/1.73m2 5003181038) KENA (test code = KENA) Association of Glomerular Filtration Rate (GFR) and Staging of Kidney Disease* + --+ --+ ------+| GFR (mL/min/1.73 m2) ?| With Kidney Damage ?| ?Without Kidney Damage+ --------+ --------+ +| ?>90 ?| ?Stage one ?| ? Normal ?+ ---+ ---+ -------+| ?60-89 ?| ?Stage two ?| ? Decreased GFR ? + --+ --+ ------+| ?30-59 ?| ?Stage three ?| ? Stage three ? + --+ --+ ------+| ?15-29 ?| ?Stage four ? | ? Stage four ?+ ---+ ---+ -------+| ?<15 (or dialysis) ? ?| ?Stage five ? | ? Stage five ?+ ---+ ---+ -------+ *Each stage assumes the associated GFR level has been in effect for at least three months. ?Stages 1 to 5, with or without kidney disease, indicate chronic kidney disease. Notes: Determination of stages one and two (with eGFR >59mL/min/1.73 m2) requires estimation of kidney damage for at least three months as defined by structural or functional abnormalities of the kidney, manifested by either:Pathological abnormalities or Markers of kidney damage (including abnormalities in the composition of the blood or urine or abnormalities in imaging tests). Lab Interpretation Abnormal (test code = 25666-7) [facility] [id number] 01:58:17 Test Item Value Reference Range Interpretation Comments LACTIC ACID (test code = 1.21 mmol/L 0.50-2.20 8570701784) Lab Interpretation (test code = Normal 72953-2) [facility] [id number] 01:58:17 Test Item Value Reference Range Interpretation Comments LACTIC ACID (test code = 1.21 mmol/L 0.50-2.20 7360021169) Lab Interpretation (test code = Normal 23811-7) [facility] Hem[facility] (A1C)2021-03-17 01:21:32 Test Item Value Reference Range Interpretation Comments HGB A1C (test code = 8.9 % 4.0-5.7 H 4548-4) KENA (test code = KENA) Reference RangesNormal: <5.7%Prediabetes: 5.7 - 6.4%Diabetes: > 6.5% Lab Interpretation (test Abnormal code = 63241-3) [facility]C)2021-03-17 01:21:32 Test Item Value Reference Range Interpretation Comments HGB A1C (test code = 8.9 % 4.0-5.7 H 4548-4) KENA (test code = KENA) Reference RangesNormal: <5.7%Prediabetes: 5.7 - 6.4%Diabetes: > 6.5% Lab Interpretation (test Abnormal code = 31091-0) [facility] GLUCOSE (AUTOMATED)2021-03-16 22:38:54 Test Item Value Reference Range Interpretation Comments POCT GLU (test code = 1991967587) 214 mg/dL 70-110 H Lab Interpretation (test code = Abnormal 06396-4) [facility] GLUCOSE (AUTOMATED)2021-03-16 22:38:54 Test Item Value Reference Range Interpretation Comments POCT GLU (test code = 7622260255) 214 mg/dL 70-110 H Lab Interpretation (test code = Abnormal 96679-2) [facility] 20:56:07 Test Item Value Reference Range Interpretation Comments Procalcitonin (test 0.02 ng/mL <0.07 code = 6522950942) KENA (test code = KENA) INTERPRETATION OF PROCALCITONIN RESULTS IN ADULTS >= 18 YEARS OF AGE Initiation and discontinuation of antibiotics on patients with suspected or confirmed Lower Respiratory Tract Infection in Adults >= 18 years of age. + +-------- --------+ + -----+|Procalcitonin |Interpretation ?|Antibiotic ? ? |Considerations ? |ng/mL ? | ?|recommendation | ? + +-------- --------+ + -----+| <0.1 ? | Bacterial ? ? ?| Strongly ? ? ?| ? | ?| infection very | discouraged ? | Overruling: ? | ?| unlikely ? ? ? | ? | ? Clinically unstable ? ? ? + +-------- --------+ + ? High risk for adverse ? ? | <0.25 ?| Bacterial ? ? ?| Discouraged ? | ? outcome ? | ?| infection ? ? ?| ? | ? SEE IMPORTANT NOTE ?| ?| unlikely ? ? ? | ? | ? + +-------- --------+ + -----+| >=0.25 ? ? ? | Bacterial ? ? ?| Encouraged ? ?| ? | ?| infection ? ? ?| ? | ? | ?| likely ? | ? | Consider treatment failure ?+ +------- ---------+ -+ if levels does not decrease | >0.5 ? | Bacterial ? ? ?| Strongly ? ? ?| appropriately ? | ?| infection very | encouraged ? ?| ? | ?| likely ? | ? | ? + +-------- --------+ + -----+ Discontinuation of antibiotics in high-acuity patients with suspected or confirmed sepsis in Adults >= 18 years of age. + +-------- --------+ + -----+|Procalcitonin |Interpretation ?|Antibiotic ? ? |Considerations ? |ng/mL ? | ?|recommendation | ? + +-------- --------+ + -----+| <0.25 ?| Bacterial ? ? ?| Strongly ? ? ?| ? | ?| infection very | discouraged ? | Overruling: ? | ?| unlikely ? ? ? | ? | ? Clinically unstable ? ? ? + +-------- --------+ + ? High risk for adverse ? ? | <0.5 or drop | Bacterial ? ? ?| Discouraged ? | ? outcome ? | >80% from ? ?| infection ? ? ?| ? | ? SEE IMPORTANT NOTE ?| highest PCT ?| unlikely ? ? ? | ? | ? | level ?| ?| ? | ? + +-------- --------+ + -----+| >=0.5 ?| Bacterial ? ? ?| Encouraged ? ?| ? | ?| infection ? ? ?| ? | ? | ?| likely ? | ? | Consider treatment failure ?+ +------- ---------+ -+ if levels does not decrease | >1.0 ? | Bacterial ? ? ?| Strongly ? ? ?| appropriately ? | ?| infection very | encouraged ? ?| ? | ?| likely ? | ? | ? + +-------- --------+ + -----+ Percentage of drop of Procalcitonin calculation for Discontinuation of antibiotics in high-acuity patients with suspected or confirmed sepsis in Adults >= 18 years of age. ? Procalcitonin highest{}-Procalcitonin current{}Delta Procalcitonin = x100% ? Procalcitonin current {} IMPORTANT NOTE: Procalcitonin may be elevated without bacterial infection by physiologic stress related to trauma, [place], chronic dialysis, metastatic cancer, surgery in the past seven days, malaria, some fungal infections, and some forms of vasculitis. The interpretation algorithm may not apply to patients with immunosuppression (equivalent of >10 mg of prednisone daily), HIV with CD4 cell count < 350 cells/mm3, active malignancy on systemic chemotherapy, solid organ transplant or hematopoietic stem cell transplantation, or hospital acquired pneumonia. Additionally, some clinical trials of procalcitonin have excluded patients with shock requiring vasopressor use, acute respiratory failure requiring mechanical ventilation, or those with known lung abscess/empyema. For further information please refer to:[email or web address] Lab Interpretation Normal (test code = 63244-8) [facility]2021-[facility] 20:56:07 Test Item Value Reference Range Interpretation Comments Procalcitonin (test 0.02 ng/mL <0.07 code = 1746458248) KENA (test code = KENA) INTERPRETATION OF PROCALCITONIN RESULTS IN ADULTS >= 18 YEARS OF AGE Initiation and discontinuation of antibiotics on patients with suspected or confirmed Lower Respiratory Tract Infection in Adults >= 18 years of age. + +-------- --------+ + -----+|Procalcitonin |Interpretation ?|Antibiotic ? ? |Considerations ? |ng/mL ? | ?|recommendation | ? + +-------- --------+ + -----+| <0.1 ? | Bacterial ? ? ?| Strongly ? ? ?| ? | ?| infection very | discouraged ? | Overruling: ? | ?| unlikely ? ? ? | ? | ? Clinically unstable ? ? ? + +-------- --------+ + ? High risk for adverse ? ? | <0.25 ?| Bacterial ? ? ?| Discouraged ? | ? outcome ? | ?| infection ? ? ?| ? | ? SEE IMPORTANT NOTE ?| ?| unlikely ? ? ? | ? | ? + +-------- --------+ + -----+| >=0.25 ? ? ? | Bacterial ? ? ?| Encouraged ? ?| ? | ?| infection ? ? ?| ? | ? | ?| likely ? | ? | Consider treatment failure ?+ +------- ---------+ -+ if levels does not decrease | >0.5 ? | Bacterial ? ? ?| Strongly ? ? ?| appropriately ? | ?| infection very | encouraged ? ?| ? | ?| likely ? | ? | ? + +-------- --------+ + -----+ Discontinuation of antibiotics in high-acuity patients with suspected or confirmed sepsis in Adults >= 18 years of age. + +-------- --------+ + -----+|Procalcitonin |Interpretation ?|Antibiotic ? ? |Considerations ? |ng/mL ? | ?|recommendation | ? + +-------- --------+ + -----+| <0.25 ?| Bacterial ? ? ?| Strongly ? ? ?| ? | ?| infection very | discouraged ? | Overruling: ? | ?| unlikely ? ? ? | ? | ? Clinically unstable ? ? ? + +-------- --------+ + ? High risk for adverse ? ? | <0.5 or drop | Bacterial ? ? ?| Discouraged ? | ? outcome ? | >80% from ? ?| infection ? ? ?| ? | ? SEE IMPORTANT NOTE ?| highest PCT ?| unlikely ? ? ? | ? | ? | level ?| ?| ? | ? + +-------- --------+ + -----+| >=0.5 ?| Bacterial ? ? ?| Encouraged ? ?| ? | ?| infection ? ? ?| ? | ? | ?| likely ? | ? | Consider treatment failure ?+ +------- ---------+ -+ if levels does not decrease | >1.0 ? | Bacterial ? ? ?| Strongly ? ? ?| appropriately ? | ?| infection very | encouraged ? ?| ? | ?| likely ? | ? | ? + +-------- --------+ + -----+ Percentage of drop of Procalcitonin calculation for Discontinuation of antibiotics in high-acuity patients with suspected or confirmed sepsis in Adults >= 18 years of age. ? Procalcitonin highest{}-Procalcitonin current{}Delta Procalcitonin = x100% ? Procalcitonin current {} IMPORTANT NOTE: Procalcitonin may be elevated without bacterial infection by physiologic stress related to trauma, [place], chronic dialysis, metastatic cancer, surgery in the past seven days, malaria, some fungal infections, and some forms of vasculitis. The interpretation algorithm may not apply to patients with immunosuppression (equivalent of >10 mg of prednisone daily), HIV with CD4 cell count < 350 cells/mm3, active malignancy on systemic chemotherapy, solid organ transplant or hematopoietic stem cell transplantation, or hospital acquired pneumonia. Additionally, some clinical trials of procalcitonin have excluded patients with shock requiring vasopressor use, acute respiratory failure requiring mechanical ventilation, or those with known lung abscess/empyema. For further information please refer to:[email or web address] Lab Interpretation Normal (test code = 89171-2) [facility] [id number] 19:22:20 1. ?Mild pulmonary congestion with bibasilar opacities likely associatedwith confirmed COVID-19 pneumonia. 2. ?Cardiomegaly. 3. ?Interval flattening of the left humeral head, suspected to be relatedtoosteonecrosis. Preliminary Report Dictated by Resident: Cliff Baker MD., have reviewed this study and agree with the abovereport.EXAM: XR CHEST 1 VW HISTORY: 86 years-old Female; dyspnea . COVID-19 pneumonia confirmed withworsening symptoms TECHNIQUE: Single frontal view of the chest. COMPARISON: Chest radiograph dated 03/17/2019 FINDINGS: The lungs are well expanded. Patchy and streaky opacities are seenbilaterally. The previously described 1.9 cm nodular opacity in the leftupper lobe is not as conspicuous. No pleural abnormality is visualized. The cardiomediastinal silhouette isenlarged accounting for technique.Tracheobronchial and aortic arch calcifications are seen. No acute osseous abnormality is present. Interval flattening and remodelingof the left humeral head, probablyrelated to osteonecrosis and collapse.Secondary osteoarthrosis noted. [facility], Radiant Results Inft User - 03/16/2021 2:23 PM CDT EXAM: XR CHEST 1 VWHISTORY: 86 years-old Female; dyspnea . COVID-19 pneumonia confirmed withworsening symptomsTECHNIQUE: Single frontal view of the chest.COMPARISON: Chest radiograph dated 03/17/2019FINDINGS:The lungsare well expanded. Patchy and streaky opacities are seenbilaterally. The previously described 1.9 cmnodular opacity in the leftupper lobe is not as conspicuous. No pleural abnormality is visualized. The cardiomediastinal silhouette is enlarged accounting for technique.Tracheobronchial and aortic archcalcifications are seen.No acute osseous abnormality is present. 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 Mild pulmonary congestion with bibasilar opacities likely associatedwith confirmed COVID-19 pneumonia.2. Cardiomegaly.3. Interval flattening of the left humeral head, suspected to be relatedto osteonecrosis.Preliminary Report Dictated by Resident: Santana Blevins, Cliff Mckeon MD., have reviewed this study and agree with the abovereport.[facility] [id number] 19:22:20 1. ?Mild pulmonary congestion with bibasilar opacities likely associatedwith confirmed COVID-19 pneumonia. 2. ?Cardiomegaly. 3. ?Interval flattening of the left humeral head, suspected to be relatedtoosteonecrosis. Preliminary Report Dictated by Resident: Cliff Baker MD., have reviewed this study and agree with the abovereport.EXAM: XR CHEST 1 VW HISTORY: 86 years-old Female; dyspnea . COVID-19 pneumonia confirmed withworsening symptoms TECHNIQUE: Single frontal view of the chest. COMPARISON: Chest radiograph dated 03/17/2019 FINDINGS: The lungs are well expanded. Patchy and streaky opacities are seenbilaterally. The previously described 1.9 cm nodular opacity in the leftupper lobe is not as conspicuous. No pleural abnormality is visualized. The cardiomediastinal silhouette isenlarged accounting for technique.Tracheobronchial and aortic arch calcifications are seen. No acuteosseous abnormality is present. Interval flattening and remodelingof the left humeral head, probablyrelated to osteonecrosis and collapse.Secondary osteoarthrosis noted. [facility], Radiant Results Inft User - 03/16/2021 2:23 PM CDT EXAM: XR CHEST 1 VWHISTORY: 86 years-old Female; dyspnea . COVID-19 pneumonia confirmed withworsening symptomsTECHNIQUE: Single frontal view of the chest.COMPARISON: Chest radiograph dated 03/17/2019FINDINGS:The lungsare well expanded. Patchy and streaky opacities are seenbilaterally. The previously described 1.9 cmnodular opacity in the leftupper lobe is not as conspicuous. No pleural abnormality is visualized. The cardiomediastinal silhouette is enlarged accounting for technique.Tracheobronchial and aortic archcalcifications are seen.No acute osseous abnormality is present. 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 Mild pulmonary congestion with bibasilar opacities likely associatedwith confirmed COVID-19 pneumonia.2. Cardiomegaly.3. Interval flattening of the left humeral head, suspected to be relatedto osteonecrosis.Preliminary Report Dictated by Resident: Cliff Holcomb MD., have reviewed this study and agree with the abovereport. [facility] [id number] 16:45:59 Test Item Value Reference Range Interpretation Comments FERRITIN (test code = 50.9 ng/mL 11.0-264.0 7504699209) KENA (test code = KENA) Biotin has been reported to cause a negative bias, interpret results relative to patient's use of biotin. Lab Interpretation (test Normal code = 63550-8) [facility] [id number] 16:45:59 Test Item Value Reference Range Interpretation Comments FERRITIN (test code = 50.9 ng/mL 11.0-264.0 1177370630) KENA (test code = KENA) Biotin has been reported to cause a negative bias, interpret results relative to patient's use of biotin. Lab Interpretation (test Normal code = 03296-7) [facility]IN[facility]IS2021-09-08 16:24:24 Test Item Value Reference Range Interpretation Comments APPEARANCE (test code = Clear Clear 2125267446) COLOR (test code = Yellow Yellow 3096594631) PH (test code = 4.8-8.0 9424234337) SP GRAVITY (test code = 1.003-1.030 0059113941) GLU U QUAL (test code = 500 mg/dL Normal A 4131923161) BLOOD (test code = Negative Negative Interfere nce from 2080324686) ascorbic acid m ay cause false neg ative results. KETONES (test code = Negative Negative 6113237027) PROTEIN (test code = Negative Negative 2887-8) UROBILIN (test code = Normal Normal 4255939978) BILIRUBIN (test code = Negative Negative 2699442894) NITRITE (test code = Negative Negative 4635255596) LEUK TORSTEN (test code = Negative Negative 3443941084) RBC/HPF (test code = See_Comment [Autom ated message] 1289860250) The system [employer] generated this result transmitted ref erence range: 0 - 3 HP F. The reference range was not used to int erpret this result as normal/abnormal . WBC/HPF (test code = <1 See_Comment [Autom ated message] 3188001917) The system [employer] generated this result transmitted ref erence range: 0 - 5 HP F. The reference range was not used to int erpret this result as normal/abnormal . BACTERIA (test code = Negative Negative 0341093594) SQ EPITH (test code = HPF 7500320580) HYAL CAST (test code = See_Comment H [Aut omated message] 6695280113) The system [employer] generated this result transmitted ref erence range: <=2 LPF. The reference range was not used to int erpret this result as normal/abnormal . Lab Interpretation Abnormal (test code = 13208-1) [facility] 16:24:24 Test Item Value Reference Range Interpretation Comments APPEARANCE (test code = Clear Clear 5904476353) COLOR (test code = Yellow Yellow 3044746067) PH (test code = 4.8-8.0 4237252143) SP GRAVITY (test code = 1.003-1.030 8662579262) GLU U QUAL (test code = 500 mg/dL Normal A 4409624265) BLOOD (test code = Negative Negative Interfere nce from 5127673487) ascorbic acid m ay cause false neg ative results. KETONES (test code = Negative Negative 9740271041) PROTEIN (test code = Negative Negative 2887-8) UROBILIN (test code = Normal Normal 6059660859) BILIRUBIN (test code = Negative Negative 6471999316) NITRITE (test code = Negative Negative 4593595116) LEUK TORSTEN (test code = Negative Negative 0601198788) RBC/HPF (test code = See_Comment [Autom ated message] 7245708373) The system [employer] generated this result transmitted ref erence range: 0 - 3 HP F. The reference range was not used to int erpret this result as normal/abnormal . WBC/HPF (test code = <1 See_Comment [Autom ated message] 7179799602) The system [employer] generated this result transmitted ref erence range: 0 - 5 HP F. The reference range was not used to int erpret this result as normal/abnormal . BACTERIA (test code = Negative Negative 6332411813) SQ EPITH (test code = HPF 8107112159) HYAL CAST (test code = See_Comment H [Aut omated message] 2817637134) The system [employer] generated this result transmitted ref erence range: <=2 LPF. The reference range was not used to int erpret this result as normal/abnormal . Lab Interpretation Abnormal (test code = 60036-2) [facility] [id number] 16:23:12 Test Item Value Reference Interpretation Comments Range TROPONIN I (test 0.003 ng/mL See_Comment [Automated code = 1109844585) message] The system which generated this result transmitted reference range : <=0.034. The reference range was not used to interpret this result as normal/abnormal . KENA (test code = Reference (Normal) KENA) Range (defined by the 99th percentile reference limit): <= 0.034 ng/mL Note: Cardiac troponin begins to rise 3-4 hours after the onset of ischemia. Repeat in 4-6 hours if the sample was drawn within 3-4 hours of the onset of the symptom and found normal. Diagnosis of myocardial injury is made with acute changes in cTn concentrations with at least one serial sample above the 99th percentile upper reference limit (URL), taken together with the patient's clinical presentation. Biotin has been reported to cause a negative bias, interpret results relative to patient's use of biotin. Lab Interpretation Normal (test code = 77848-1) [facility] [id number] 16:23:12 Test Item Value Reference Interpretation Comments Range TROPONIN I (test 0.003 ng/mL See_Comment [Automated code = 8815797048) message] The system which generated this result transmitted reference range : <=0.034. The reference range was not used to interpret this result as normal/abnormal . KENA (test code = Reference (Normal) KENA) Range (defined by the 99th percentile reference limit): <= 0.034 ng/mL Note: Cardiac troponin begins to rise 3-4 hours after the onset of ischemia. Repeat in 4-6 hours if the sample was drawn within 3-4 hours of the onset of the symptom and found normal. Diagnosis of myocardial injury is made with acute changes in cTn concentrations with at least one serial sample above the 99th percentile upper reference limit (URL), taken together with the patient's clinical presentation. Biotin has been reported to cause a negative bias, interpret results relative to patient's use of biotin. Lab Interpretation Normal (test code = 14456-6) [facility] [id number] 16:19:59 Test Item Value Reference Range Interpretation Comments NT-proBNP (test code 2200 pg/mL See_Comment H [Autom ated = 5632053915) message] The system which generated this result transmitted reference range : <=450. The reference range was not used to interpret this result as normal/abnormal . KENA (test code = KENA) Biotin has been reported to cause a negative bias, interpret results relative to patient's use of biotin. Lab Interpretation Abnormal (test code = 70387-6) [facility] [id number] 16:19:59 Test Item Value Reference Range Interpretation Comments NT-proBNP (test code 2200 pg/mL See_Comment H [Autom ated = 1354472835) message] The system which generated this result transmitted reference range : <=450. The reference range was not used to interpret this result as normal/abnormal . KENA (test code = KENA) Biotin has been reported to cause a negative bias, interpret results relative to patient's use of biotin. Lab Interpretation Abnormal (test code = 52709-2) [facility] System[facility] METABOLIC PANEL ([id number])2021-03-16 16:14:12 Test Item Value Reference Range Interpretation Comments NA (test code = 132 mmol/L 135-145 L 0920064377) K (test code = 4.4 mmol/L 3.5-5.0 9639268964) CL (test code = 92 mmol/L 98-108 L 3973085522) CO2 TOTAL (test code = 30 mmol/L 23-31 3685195360) AGAP (test code = 2-16 3521660568) BUN (test code = 22 mg/dL 7-23 6234322210) GLUCOSE (test code = 303 mg/dL 70-110 H 9407257156) CREATININE (test code = 0.69 mg/dL 0.50-1.04 9876307988) TOTAL BILI (test code = 0.7 mg/dL 0.1-1.0 7999511766) CALCIUM (test code = 8.7 mg/dL 8.6-10.6 3367749557) T PROTEIN (test code = 7.2 g/dL 6.3-8.2 0085860589) ALBUMIN (test code = 4.0 g/dL 3.5-5.0 4408569642) ALK PHOS (test code = 124 U/L 34-122 H 2561245134) ALTv (test code = 19 U/L 35 1742-6) AST(SGOT) (test code = 25 U/L 13-40 7559597809) eGFR (test code = mL/min/1.73m2 5671055082) KENA (test code = KENA) Association of Glomerular Filtration Rate (GFR) and Staging of Kidney Disease* + --+ --+ ------+| GFR (mL/min/1.73 m2) ?| With Kidney Damage ?| ?Without Kidney Damage+ --------+ --------+ +| ?>90 ?| ?Stage one ?| ? Normal ?+ ---+ ---+ -------+| ?60-89 ?| ?Stage two ?| ? Decreased GFR ? + --+ --+ ------+| ?30-59 ?| ?Stage three ?| ? Stage three ? + --+ --+ ------+| ?15-29 ?| ?Stage four ? | ? Stage four ?+ ---+ ---+ -------+| ?<15 (or dialysis) ? ?| ?Stage five ? | ? Stage five ?+ ---+ ---+ -------+ *Each stage assumes the associated GFR level has been in effect for at least three months. ?Stages 1 to 5, with or without kidney disease, indicate chronic kidney disease. Notes: Determination of stages one and two (with eGFR >59mL/min/1.73 m2) requires estimation of kidney damage for at least three months as defined by structural or functional abnormalities of the kidney, manifested by either:Pathological abnormalities or Markers of kidney damage (including abnormalities in the composition of the blood or urine or abnormalities in imaging tests). Lab Interpretation Abnormal (test code = 64085-3) [facility]. METABOLIC PANEL ([id number])2021-03-16 16:14:12 Test Item Value Reference Range Interpretation Comments NA (test code = 132 mmol/L 135-145 L 8495703772) K (test code = 4.4 mmol/L 3.5-5.0 2985632906) CL (test code = 92 mmol/L 98-108 L 4906737436) CO2 TOTAL (test code = 30 mmol/L 23-31 9449244602) AGAP (test code = 2-16 1201990708) BUN (test code = 22 mg/dL 7-23 0084180957) GLUCOSE (test code = 303 mg/dL 70-110 H 1561272626) CREATININE (test code = 0.69 mg/dL 0.50-1.04 2184663613) TOTAL BILI (test code = 0.7 mg/dL 0.1-1.6 5861078225) CALCIUM (test code = 8.7 mg/dL 8.6-10.6 7182549551) T PROTEIN (test code = 7.2 g/dL 6.3-8.2 9617994894) ALBUMIN (test code = 4.0 g/dL 3.5-5.0 6404091146) ALK PHOS (test code = 124 U/L 34-122 H 8263450300) ALTv (test code = 19 U/L 5-35 2-6) AST(SGOT) (test code = 25 U/L 13-40 7782589141) eGFR (test code = mL/min/1.73m2 9701273486) KENA (test code = KENA) Association of Glomerular Filtration Rate (GFR) and Staging of Kidney Disease* + --+ --+ ------+| GFR (mL/min/1.73 m2) ?| With Kidney Damage ?| ?Without Kidney Damage+ --------+ --------+ +| ?>90 ?| ?Stage one ?| ? Normal ?+ ---+ ---+ -------+| ?60-89 ?| ?Stage two ?| ? Decreased GFR ? + --+ --+ ------+| ?30-59 ?| ?Stage three ?| ? Stage three ? + --+ --+ ------+| ?15-29 ?| ?Stage four ? | ? Stage four ?+ ---+ ---+ -------+| ?<15 (or dialysis) ? ?| ?Stage five ? | ? Stage five ?+ ---+ ---+ -------+ *Each stage assumes the associated GFR level has been in effect for at least three months. ?Stages 1 to 5, with or without kidney disease, indicate chronic kidney disease. Notes: Determination of stages one and two (with eGFR >59mL/min/1.73 m2) requires estimation of kidney damage for at least three months as defined by structural or functional abnormalities of the kidney, manifested by either:Pathological abnormalities or Markers of kidney damage (including abnormalities in the composition of the blood or urine or abnormalities in imaging tests). Lab Interpretation Abnormal (test code = 23523-5) [facility] [id number] 16:12:49 Test Item Value Reference Range Interpretation Comments LDH (test code = 3390626105) 412 U/L 300-600 Lab Interpretation (test code = Normal 17398-7) [facility] BVVBRVRUKQBBM5351-97-10 16:12:49 Test Item Value Reference Range Interpretation Comments LDH (test code = 6278013014) 412 U/L 300-600 Lab Interpretation (test code = Normal 11367-2) [facility]-[id number] 16:06:30 Test Item Value Reference Interpretation Comments Range D-DIMER (test code = See_Comment H [Autom ated 0408160929) message] The system which generated this result transmitted reference range : <0.41 ?g/mL (FEU). The reference range was not used to interpret this result as normal/abnormal . KENA (test code = This test may be KENA) used in conjunction with a clinical pretest probability (PTP) assessment model to exclude venous thromboembolism (VTE) in patients suspected of deep venous thrombosis (DVT) and pulmonary embolism (PE) A D-Dimer value less than 0.50 ?g/ml (FEU) has a negative predicative value of 96 to 100% (95% CI)and 97 to 100% (95% CI) as an aid in the diagnosis of deep vein thrombosis (DVT) and pulmonary embolism when there is low or moderate pretest probability of PE or DVT. D-Dimer values are expressed in initial fibrinogen equivalent units (FEU)" The assay results should be used with other information, including the clinical context, in forming a diagnosis. Lab Interpretation Abnormal (test code = 81413-5) [facility]-[id number] 16:06:30 Test Item Value Reference Interpretation Comments Range D-DIMER (test code = See_Comment H [Autom ated 3599029524) message] The system which generated this result transmitted reference range : <0.41 ?g/mL (FEU). The reference range was not used to interpret this result as normal/abnormal . KENA (test code = This test may be KENA) used in conjunction with a clinical pretest probability (PTP) assessment model to exclude venous thromboembolism (VTE) in patients suspected of deep venous thrombosis (DVT) and pulmonary embolism (PE) A D-Dimer value less than 0.50 ?g/ml (FEU) has a negative predicative value of 96 to 100% (95% CI)and 97 to 100% (95% CI) as an aid in the diagnosis of deep vein thrombosis (DVT) and pulmonary embolism when there is low or moderate pretest probability of PE or DVT. D-Dimer values are expressed in initial fibrinogen equivalent units (FEU)" The assay results should be used with other information, including the clinical context, in forming a diagnosis. Lab Interpretation Abnormal (test code = 94854-4) [facility]:03:07 Test Item Value Reference Range Interpretation Comments Fibrinogen (test code = 1283922906) 367 mg/dL 214-470 Lab Interpretation (test code = Normal 10571-0) [facility] 16:03:07 Test Item Value Reference Range Interpretation Comments Fibrinogen (test code = 2986615660) 367 mg/dL 214-470 Lab Interpretation (test code = Normal 73640-8) [facility] / [id number] 16:01:50 Test Item Value Reference Range Interpretation Comments PROTIME PATIENT (test See_Comment [Auto mated message] code = 5964-2) The system [employer] generated this result transmitted ref erence range: 12.0 - 1 4.7 Seconds. The re ference range was not u sed to interpret this result as normal/abnor mal. INR (test code = 6301-6) Nor mal INR <1.1; Warfarin Therap eutic range 2.0 to 3. 0 or 2.5 to 3.5, dep ending upon the indica tions. Lab Interpretation (test Normal code = 26760-3) [facility] / [id number] 16:01:50 Test Item Value Reference Range Interpretation Comments PROTIME PATIENT (test See_Comment [Auto mated message] code = 5964-2) The system [employer] generated this result transmitted ref erence range: 12.0 - 1 4.7 Seconds. The re ference range was not u sed to interpret this result as normal/abnor mal. INR (test code = 6301-6) Nor mal INR <1.1; Warfarin Therap eutic range 2.0 to 3. 0 or 2.5 to 3.5, dep ending upon the indica tions. Lab Interpretation (test Normal code = 12815-0) [facility] WITH [id number] 15:55:48 Test Item Value Reference Range Interpretation Comments WBC (test code = See_Comment [Automated 4190-2) message] The sy stem which generated this result transmitted reference range : 4.30 - 11.10 10*3/?L. The reference range was not used to interpret this result as normal/abnormal . RBC (test code = See_Comment [Automated 049-8) message] The sy stem which generated this result transmitted reference range : 3.93 - 5.25 10*6/?L. The reference range was not used to interpret this result as normal/abnormal . HGB (test code = 11.6 g/dL 11.6-15.0 718-7) HCT (test code = 36.9 % 35.7-45.2 4544-3) MCV (test code = 86.6 fL 80.6-95.5 787-2) MCH (test code = 27.2 pg 25.9-32.8 785-6) MCHC (test code = 31.4 g/dL 31.6-35.1 L 786-4) RDW-SD (test code = 47.3 fL 39.0-49.9 03089-4) RDW-CV (test code = 14.9 % 12.0-15.5 788-0) PLT (test code = See_Comment [Automated 777-3) message] The sy stem which generated this result transmitted reference range : 166 - 358 10*3/ ?L. The reference r ilan was not used to interpret this result as normal/abnormal . MPV (test code = 12.1 fL 9.5-12.9 78273-6) NRBC/100 WBC (test See_Comment [Automat ed code = 6458660783) message] The system which generated this result transmitted reference range : 0.0 - 10.0 /100 WBCs. The refer ence range was not u sed to interpret th is result as normal/abnormal . NRBC x10^3 (test code <0.01 See_Comment [Auto mated = 8312449423) message] The s ystem which generated this result transmitted reference range : 10*3/?L. The reference range was not used to interpret this result as normal/abnormal . GRAN MAT (NEUT) % 81.6 % (test code = 770-8) IMM GRAN % (test code 0.90 % = 3688447972) LYMPH % (test code = 5.4 % 736-9) MONO % (test code = 7.8 % 5905-5) EOS % (test code = 4.1 % 713-8) BASO % (test code = 0.2 % 706-2) GRAN MAT x10^3(ANC) 3.79 10*3/uL 1.88-7.09 (test code = 0092108817) IMM GRAN x10^3 (test 0.04 10*3/uL 0.00-0.06 code = 1004272756) LYMPH x10^3 (test code 0.25 10*3/uL 1.32-3.29 L = 731-0) MONO x10^3 (test code 0.36 10*3/uL 0.33-0.92 = 742-7) EOS x10^3 (test code = 0.19 10*3/uL 0.03-0.39 711-2) BASO x10^3 (test code <0.03 0.01-0.07 = 704-7) Lab Interpretation Abnormal (test code = 84681-7) [facility] WITH [id number] 15:55:48 Test Item Value Reference Range Interpretation Comments WBC (test code = See_Comment [Automated 9190-2) message] The sy stem which generated this result transmitted reference range : 4.30 - 11.10 10*3/?L. The reference range was not used to interpret this result as normal/abnormal . RBC (test code = See_Comment [Automated 979-8) message] The sy stem which generated this result transmitted reference range : 3.93 - 5.25 10*6/?L. The reference range was not used to interpret this result as normal/abnormal . HGB (test code = 11.6 g/dL 11.6-15.0 718-7) HCT (test code = 36.9 % 35.7-45.2 4544-3) MCV (test code = 86.6 fL 80.6-95.5 787-2) MCH (test code = 27.2 pg 25.9-32.8 785-6) MCHC (test code = 31.4 g/dL 31.6-35.1 L 786-4) RDW-SD (test code = 47.3 fL 39.0-49.9 88455-4) RDW-CV (test code = 14.9 % 12.0-15.5 788-0) PLT (test code = See_Comment [Automated 777-3) message] The sy stem which generated this result transmitted reference range : 166 - 358 10*3/ ?L. The reference r ilan was not used to interpret this result as normal/abnormal . MPV (test code = 12.1 fL 9.5-12.9 79214-2) NRBC/100 WBC (test See_Comment [Automat ed code = 6246072417) message] The system which generated this result transmitted reference range : 0.0 - 10.0 /100 WBCs. The refer ence range was not u sed to interpret th is result as normal/abnormal . NRBC x10^3 (test code <0.01 See_Comment [Auto mated = 2770223157) message] The s ystem which generated this result transmitted reference range : 10*3/?L. The reference range was not used to interpret this result as normal/abnormal . GRAN MAT (NEUT) % 81.6 % (test code = 770-8) IMM GRAN % (test code 0.90 % = 0740774506) LYMPH % (test code = 5.4 % 736-9) MONO % (test code = 7.8 % 5905-5) EOS % (test code = 4.1 % 713-8) BASO % (test code = 0.2 % 706-2) GRAN MAT x10^3(ANC) 3.79 10*3/uL 1.88-7.09 (test code = 2063004693) IMM GRAN x10^3 (test 0.04 10*3/uL 0.00-0.06 code = 1815295701) LYMPH x10^3 (test code 0.25 10*3/uL 1.32-3.29 L = 731-0) MONO x10^3 (test code 0.36 10*3/uL 0.33-0.92 = 742-7) EOS x10^3 (test code = 0.19 10*3/uL 0.03-0.39 711-2) BASO x10^3 (test code <0.03 0.01-0.07 = 704-7) Lab Interpretation Abnormal (test code = 38104-5) [facility] Acid Whole [id number] 15:31:08 Test Item Value Reference Range Interpretation Comments LACTIC ACID (test code = 2.41 mmol/L 0.50-2.20 H 9251189991) Lab Interpretation (test code = Abnormal 38500-3) [facility] Acid Whole [id number] 15:31:08 Test Item Value Reference Range Interpretation Comments LACTIC ACID (test code = 2.41 mmol/L 0.50-2.20 H 0479833228) Lab Interpretation (test code = Abnormal 10173-6) [facility] WITH [id number] 15:31:14 Test Item Value Reference Range Interpretation Comments WBC (test code = See_Comment [Automated 4290-2) message] The sy stem which generated this result transmitted reference range : 4.30 - 11.10 10*3/?L. The reference range was not used to interpret this result as normal/abnormal . RBC (test code = See_Comment [Automated 372-8) message] The sy stem which generated this result transmitted reference range : 3.93 - 5.25 10*6/?L. The reference range was not used to interpret this result as normal/abnormal . HGB (test code = 12.0 g/dL 11.6-15.0 718-7) HCT (test code = 38.2 % 35.7-45.2 4544-3) MCV (test code = 87.8 fL 80.6-95.5 787-2) MCH (test code = 27.6 pg 25.9-32.8 785-6) MCHC (test code = 31.4 g/dL 31.6-35.1 L 786-4) RDW-SD (test code = 46.8 fL 39.0-49.9 59460-5) RDW-CV (test code = 14.6 % 12.0-15.5 788-0) PLT (test code = See_Comment [Automated 777-3) message] The sy stem which generated this result transmitted reference range : 166 - 358 10*3/ ?L. The reference r ilan was not used to interpret this result as normal/abnormal . MPV (test code = 10.8 fL 9.5-12.9 82034-1) NRBC/100 WBC (test See_Comment [Automat ed code = 1029823156) message] The system which generated this result transmitted reference range : 0.0 - 10.0 /100 WBCs. The refer ence range was not u sed to interpret th is result as normal/abnormal . NRBC x10^3 (test code <0.01 See_Comment [Auto mated = 9595155264) message] The s ystem which generated this result transmitted reference range : 10*3/?L. The reference range was not used to interpret this result as normal/abnormal . GRAN MAT (NEUT) % 81.3 % (test code = 770-8) IMM GRAN % (test code 0.50 % = 1073252816) LYMPH % (test code = 5.9 % 736-9) MONO % (test code = 9.1 % 5905-5) EOS % (test code = 2.8 % 713-8) BASO % (test code = 0.4 % 706-2) GRAN MAT x10^3(ANC) 6.04 10*3/uL 1.88-7.09 (test code = 7773190450) IMM GRAN x10^3 (test 0.04 10*3/uL 0.00-0.06 code = 3669846194) LYMPH x10^3 (test code 0.44 10*3/uL 1.32-3.29 L = 731-0) MONO x10^3 (test code 0.68 10*3/uL 0.33-0.92 = 742-7) EOS x10^3 (test code = 0.21 10*3/uL 0.03-0.39 711-2) BASO x10^3 (test code 0.03 10*3/uL 0.01-0.07 = 704-7) Lab Interpretation Abnormal (test code = 36148-1) [facility] [id number] 20:17:42 No acute intracranial abnormality Background mild ischemic small vessel diseaseMR BRAIN WO CONTRASTHISTORY: Female 85 years ?External orders COMPARISON: CT head dated 07/03/2013 TECHNIQUE: Multiplanar multi weighted imaging of the brain was obtainedwithout IV contrast FINDINGS: The ventricles and cerebral sulci are normal in caliber and configuration.No hydrocephalus, midline shift or pathological extra-axial fluidcollection is present. The basal cisterns are unremarkable. 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 No focus of abnormal parenchymal gradient blooming ispresent. No abnormal fluid signal is present the mastoid air cells. Mildinflammatory changes are seen in the ethmoidal air cells. The T2 flow voidsfor the major intracranial vessels are unremarkable. [facility], Radiant Results Inft User - 05/04/2020 3:18 PM CDR BRAIN WO CONTRASTHISTORY: Female 85 years External ordersCOMPARISON: CT head dated 07/03/2013TECHNIQUE: Multiplanar multi weighted imaging of the brain was obtainedwithout IV contrastFINDINGS:The ventricles and cerebral sulci are normal in caliber and configuration.No hydrocephalus, midline shift or pathological extra-axial fluidcollection is present. The basal cisterns are unremarkable.No restricted diffusion is present to suggest acute-subacute ischemia.Periventricular and scattered small foci of deep white matter hyperintenseT2/FLAIR signal are nonspecific and likely represent ischemic small vesseldisease. 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 No focus of abnormal parenchymal gradient blooming ispresent.No abnormal fluid signal is present the mastoid air cells. Mildinfla mmatory changes are seen in the ethmoidal air cells. The T2 flow voidsfor the major intracranial vessels are unremarkable.IMPRESSIONNo acute intracranial abnormalityBackground mild ischemic small vessel diseaseUnUnited Memorial Medical CenterXR KNEE 3 VW [id number] 20:52:52 Healing lateral femoral condyle periprosthetic fracture. 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 Increased sclerosisandcallus formation are seen about the lateral femoral condyle periprostheticfracture. No new hardware complication is seen. Vascular calcifications arepresent. Osteopenia is noted. There is a small joint effusion. 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 Increased sclerosis andcallus formation are seen about the lateral femoral condyle periprostheticfracture. No new hardware complication is seen. Vascular calcifications arepresent. Osteopenia is noted. There is a small joint effusion.IMPRESSIONHealing lateral femoral condyle periprosthetic fracture.[facility] GLUCOSE (AUTOMATED)2019-03-18 16:33:00 Test Item Value Reference Range Interpretation Comments POCT GLU (test code = 7052727149) 260 mg/dL 70-110 H Lab Interpretation (test code = Abnormal 53805-4) [facility] GLUCOSE (AUTOMATED)2019-03-18 12:42:00 Test Item Value Reference Range Interpretation Comments POCT GLU (test code = 2162266165) 114 mg/dL 70-110 H Lab Interpretation (test code = Abnormal 03220-6) [facility] PAN[facility] (NA, K, CL, CO2, GLUCOSE, BUN, CREATININE, CA)2019-03-18 10:55:00 Test Item Value Reference Range Interpretation Comments NA (test code = 135 mmol/L 135-145 0844093906) K (test code = 4.8 mmol/L 3.5-5 5112004229) CL (test code = 88 mmol/L 98-108 L 1066755640) CO2 TOTAL (test code = 38 mmol/L 23-31 H 7164820012) AGAP (test code = 2-16 2981833157) BUN (test code = 28 mg/dL 7-23 H 5806740702) GLUCOSE (test code = 112 mg/dL 70-110 H 4016800718) CREATININE (test code = 0.73 mg/dL 0.5-1.04 5184571928) CALCIUM (test code = 9.0 mg/dL 8.6-10.6 0377859441) eGFR Calculation mL/min/1.73m2 (Non-) (test code = 5414989449) eGFR Calculation mL/min/1.73m2 () (test code = 6557094908) KENA (test code = KENA) Association of Glomerular Filtration Rate (GFR) and Staging of Kidney Disease*+ + + +| GFR (mL/min/1.73 m2)?| With Kidney Damage?|?Without Kidney Damage+ --------+ --------+ +|?>90?|?S tage one?|? Normal?+ ---------+ ---------+ +|?60-89? |?Stage two?|? Decreased GFR? + --+ --+ ------+|?30-59?|?Stage three?|? Stage three? + --+ --+ ------+|?15-29?|?Stage four? |? Stage four?+ -------+ -------+ +|?<15 (or dialysis)?|?Stage five? |? Stage five?+ -------+ -------+ +*Each stage assumes the associated GFR level has been in effect for at least three months.?Stages 1 to 5, with or without kidney disease, indicate chronic kidney disease.Notes: Determination of stages one and two (with eGFR >59mL/min/1.73 m2) requires estimation of kidney damage for at least three months as defined by structural or functional abnormalities of the kidney, manifested by either:Pathological abnormalities or Markers of kidney damage (including abnormalities in the composition of the blood or urine or abnormalities in imaging tests). Lab Interpretation Abnormal (test code = 30113-7) [facility] GLUCOSE (AUTOMATED)2019-03-18 06:47:00 Test Item Value Reference Range Interpretation Comments POCT GLU (test code = 1117872281) 150 mg/dL 70-110 H Lab Interpretation (test code = Abnormal 55190-1) [facility] GLUCOSE (AUTOMATED)2019-03-18 02:30:00 Test Item Value Reference Range Interpretation Comments POCT GLU (test code = 8227201268) 318 mg/dL 70-110 H Lab Interpretation (test code = Abnormal 02100-1) [facility] 1 [id number] 22:58:57 Mild pulmonary vascular congestion and cardiomegaly. 1.9 cm nodular densityin the left upper lobe may represent prominent costochondral junction orfocal parenchymal opacity. Reticulonodular opacities in the lung bases mayreflect areas of atypical infection in the proper clinical setting. The right-sided PICC line terminates in the SVC. Salvador Mayberry MD., have reviewed this study and agree with the abovereport.PROCEDURE: XR CHEST 1 VW CLINICAL INDICATION: PICC LINE VERIFICATION COMPARISON: 03/14/2019 FINDINGS: A right-sided PICC line terminates in the SVC. Bilateral reticulonodular opacities are present, similar to priorexaminations. There is a 1.9 cm nodularity in the left upper lobe, morepronounced compared to prior, may represent prominent costochondraljunction of the first rib or parenchymal nodular opacity. Mild pulmonaryvascular congestion is also present. The cardiac silhouette is enlarged. No acute osseous abnormality. [facility], Radiant Results Inft User - 03/17/2019 5:59 PM CDTPROCEDURE:XR CHEST 1 VWCLINICAL INDICATION: PICC LINE VERIFICATION COMPARISON: 03/14/2019FINDINGS:A right-sided PICC line terminates in the SVC.Bilateral reticulonodular opacities are present, similar to priorexami nations. There is a 1.9 cm nodularity in the left upper lobe, morepronounced compared to prior, may represent prominent costochondraljunction of the first rib or parenchymal nodular opacity. Mild pulmonaryvascular congestion is also present. The cardiac silhouette is enlarged.No acute osseous abnormality. IMPRESSIONMild pulmonary vascular congestion and cardiomegaly. 1.9 cm nodular densityin the leftupper lobe may represent prominent costochondral junction orfocal parenchymal opacity. Reticulonodular opacities in the lung bases mayreflect areas of atypical infection in the proper clinical setting.The right- sided PICC line terminates in the SVC.Soni Mayberry MD., have reviewed this study and agree with the abovereport.[facility] ([facility])2019-03-17 22:02:00 Test Item Value Reference Range Interpretation Comments POCT GLU (test code = 2919054124) 274 mg/dL 70-110 H Lab Interpretation (test code = Abnormal 27346-6) [facility]2019-03-17 16:23:00 Test Item Value Reference Range Interpretation Comments POCT GLU (test code = 2979578984) 221 mg/dL 70-110 H Lab Interpretation (test code = Abnormal 62878-4) [facility] METABOLIC PANEL (NA, K, CL, CO2, GLUCOSE, BUN, CREATININE, CA)2019-03-17 13:24:00 Test Item Value Reference Range Interpretation Comments NA (test code = 133 mmol/L 135-145 L 0638784552) K (test code = 4.2 mmol/L 3.5-5 6053236224) CL (test code = 85 mmol/L 98-108 L 0224440357) CO2 TOTAL (test code = 40 mmol/L 23-31 H 3179527151) AGAP (test code = 2-16 8941023245) BUN (test code = 27 mg/dL 7-23 H 8119978895) GLUCOSE (test code = 79 mg/dL 70-110 3987169294) CREATININE (test code = 0.67 mg/dL 0.5-1.04 4194696671) CALCIUM (test code = 9.4 mg/dL 8.6-10.6 2144952011) eGFR Calculation mL/min/1.73m2 (Non-) (test code = 6732705865) eGFR Calculation mL/min/1.73m2 () (test code = 8258582955) KENA (test code = KENA) Association of Glomerular Filtration Rate (GFR) and Staging of Kidney Disease*+ + + +| GFR (mL/min/1.73 m2)?| With Kidney Damage?|?Without Kidney Damage+ --------+ --------+ +|?>90?|?S larye one?|? Normal?+ ---------+ ---------+ +|?60-89? |?Stage two?|? Decreased GFR? + --+ --+ ------+|?30-59?|?Stage three?|? Stage three? + --+ --+ ------+|?15-29?|?Stage four? |? Stage four?+ -------+ -------+ +|?<15 (or dialysis)?|?Stage five? |? Stage five?+ -------+ -------+ +*Each stage assumes the associated GFR level has been in effect for at least three months.?Stages 1 to 5, with or without kidney disease, indicate chronic kidney disease.Notes: Determination of stages one and two (with eGFR >59mL/min/1.73 m2) requires estimation of kidney damage for at least three months as defined by structural or functional abnormalities of the kidney, manifested by either:Pathological abnormalities or Markers of kidney damage (including abnormalities in the composition of the blood or urine or abnormalities in imaging tests). Lab Interpretation Abnormal (test code = 14092-3) [facility]2019-03-17 12:56:00 Test Item Value Reference Range Interpretation Comments POCT GLU (test code = 5687009897) 72 mg/dL 70-110 Lab Interpretation (test code = Normal 93601-9) [facility] WITH WGEHERDQAEKB1168-30-93 12:49:00 Test Item Value Reference Range Interpretation Comments WBC (test code = See_Comment [Automated 6690-2) message] The sy stem which generated this result transmitted reference range : 4.30 - 11.10 10*3/?L. The reference range was not used to interpret this result as normal/abnormal . RBC (test code = See_Comment [Automated 699-8) message] The sy stem which generated this result transmitted reference range : 3.93 - 5.25 10*6/?L. The reference range was not used to interpret this result as normal/abnormal . HGB (test code = 12.7 g/dL 11.6-15 718-7) HCT (test code = 40.1 % 35.7-45.2 4544-3) MCV (test code = 88.1 fL 80.6-95.5 787-2) MCH (test code = 27.9 pg 25.9-32.8 785-6) MCHC (test code = 31.7 g/dL 31.6-35.1 786-4) RDW-SD (test code = 43.0 fL 39-49.9 27871-0) RDW-CV (test code = 13.3 % 12-15.5 788-0) PLT (test code = See_Comment [Automated 777-3) message] The sy stem which generated this result transmitted reference range : 166 - 358 10*3/ ?L. The reference r ilan was not used to interpret this result as normal/abnormal . MPV (test code = 11.3 fL 9.5-12.9 34737-4) NRBC/100 WBC (test See_Comment [Automat ed code = 4651533122) message] The system which generated this result transmitted reference range : 0.0 - 10.0 /100 WBCs. The refer ence range was not u sed to interpret th is result as normal/abnormal . NRBC x10^3 (test code <0.01 See_Comment [Auto mated = 9583740309) message] The s ystem which generated this result transmitted reference range : 10*3/?L. The reference range was not used to interpret this result as normal/abnormal . GRAN MAT (NEUT) % 77.5 % (test code = 770-8) IMM GRAN % (test code 1.50 % = 4371829442) LYMPH % (test code = 6.7 % 736-9) MONO % (test code = 10.8 % 5905-5) EOS % (test code = 3.2 % 713-8) BASO % (test code = 0.3 % 706-2) GRAN MAT x10^3(ANC) 5.12 10*3/uL 1.88-7.09 (test code = 5659343103) IMM GRAN x10^3 (test 0.10 10*3/uL 0-0.06 H code = 2249838042) LYMPH x10^3 (test code 0.44 10*3/uL 1.32-3.29 L = 731-0) MONO x10^3 (test code 0.71 10*3/uL 0.33-0.92 = 742-7) EOS x10^3 (test code = 0.21 10*3/uL 0.03-0.39 711-2) BASO x10^3 (test code <0.03 0.01-0.07 = 704-7) Lab Interpretation Abnormal (test code = 91798-7) [facility] GLUCOSE (AUTOMATED)2019-03-17 01:50:00 Test Item Value Reference Range Interpretation Comments POCT GLU (test code = 2569917370) 256 mg/dL 70-110 H Lab Interpretation (test code = Abnormal 64177-8) [facility] GLUCOSE (AUTOMATED)2019-03-16 21:45:00 Test Item Value Reference Range Interpretation Comments POCT GLU (test code = 9058751716) 162 mg/dL 70-110 H Lab Interpretation (test code = Abnormal 64465-0) [facility] GLUCOSE (AUTOMATED)2019-03-16 16:28:00 Test Item Value Reference Range Interpretation Comments POCT GLU (test code = 2643470607) 269 mg/dL 70-110 H Lab Interpretation (test code = Abnormal 55789-7) [facility] [id number] 16:17:55 Diffuse mild soft tissue swelling without acute bony abnormalities. Midfoot and moderate osteoarthritis. Diffuse osteopenia Macy Mayberry MD., have reviewed this study and agree with the abovereport.* * * * * * * * ORIGINAL REPORT * * * * * * * *EXAM: XR FOOT 3+ VW RIGHT HISTORY: pain COMPARISON: None. FINDINGS: Radiographs of the right foot demonstrate mild diffuse soft tissueswelling. Moderate midfoot osteoarthritic changes are present. Marginalerosion is lateral on the medial aspect of thenavicular bone, bestvisualized on the oblique views. 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 [facility], Radiant Results Inft - 03/16/2019 11:18 AM CDT* * * * * * * * ORIGINAL REPORT * * * * * * * *EXAM: XR FOOT 3+ VW RIGHTHISTORY: pain COMPARISON: None.FINDINGS: Radiographs of the right foot demonstrate mild diffuse soft tissueswelling. Moderate midfoot osteoarthritic changes are present. Marginalerosion is lateral on the medial aspect of the navicular bone, bestvisualized on the oblique views. 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.Osteopenia is seen.IMPRESSIONDiffuse mild soft tissue swelling without acute bony abnormalities.Midfoot and moderate osteoarthritis.Diffuse osteopeniaIKarthik MD., have reviewed this study and agree with the abovereport.[facility] GLUCOSE (AUTOMATED)2019-03-16 12:39:00 Test Item Value Reference Range Interpretation Comments POCT GLU (test code = 5754875874) 113 mg/dL 70-110 H Lab Interpretation (test code = Abnormal 23365-3) [facility] GLUCOSE (AUTOMATED)2019-03-16 01:28:00 Test Item Value Reference Range Interpretation Comments POCT GLU (test code = 2555785678) 201 mg/dL 70-110 H Lab Interpretation (test code = Abnormal 29150-6) [facility] 21:56:00 Test Item Value Reference Range Interpretation Comments POCT GLU (test code = 7824058671) 119 mg/dL 70-110 H Lab Interpretation (test code = Abnormal 05499-2) [facility] GLUCOSE (AUTOMATED)2019-03-15 21:56:00 Test Item Value Reference Range Interpretation Comments POCT GLU (test code = 1223102184) 184 mg/dL 70-110 H Lab Interpretation (test code = Abnormal 85572-8) [facility] GLUCOSE (AUTOMATED)2019-03-15 13:58:00 Test Item Value Reference Range Interpretation Comments POCT GLU (test code = 7964125010) 57 mg/dL 70-110 L Lab Interpretation (test code = Abnormal 90479-5) [facility] GLUCOSE (AUTOMATED)2019-03-15 13:58:00 Test Item Value Reference Range Interpretation Comments POCT GLU (test code = 7122578259) 82 mg/dL 70-110 Lab Interpretation (test code = Normal 01025-7) [facility] GLUCOSE (AUTOMATED)2019-03-15 00:47:00 Test Item Value Reference Range Interpretation Comments POCT GLU (test code = 8759971560) 293 mg/dL 70-110 H Lab Interpretation (test code = Abnormal 71165-4) [facility] 21:38:00 Test Item Value Reference Range Interpretation Comments POCT GLU (test code = 3993420150) 256 mg/dL 70-110 H Lab Interpretation (test code = Abnormal 60577-8) [facility]14 17:20:00 Test Item Value Reference Range Interpretation Comments POCT GLU (test code = 8943482725) 149 mg/dL 70-110 H Lab Interpretation (test code = Abnormal 34533-8) [facility] GLUCOSE (AUTOMATED)2019-03-14 12:50:00 Test Item Value Reference Range Interpretation Comments POCT GLU (test code = 2604330216) 100 mg/dL 70-110 Lab Interpretation (test code = Normal 57837-0) [facility] [id number] 07:32:02Impression: Moderate cardiomegaly without acute pulmonary process. RL: 460 AFC: [id number]: Hypoxia Comparison: None Findings: Single AP view of the chest. The cardiopericardial silhouette ismoderately enlarged. The lungs are clear bilaterally. The visualized bonythorax is intact. [facility], Radiant Results Inft User - 03/14/2019 2:34 AM CDTIndication: HypoxiaComparison: NoneFindings: Single AP view of the chest. The cardiopericardial silhouette ismoderately enlarged. The lungs are clear bilaterally. The visualized bonythorax is intact.IMPRESSIONImpression:Moderate cardiomegaly without acute pulmonary process.RL: 460AFC: [id number] 2019-03-14 05:25:48 No acute bony abnormality. Severe left knee osteoarthrosis with chondrocalcinosis and moderate volumeknee joint effusion. Osteopenia. IAdeola MD., have reviewed this study and agree with the abovereport.EXAM: XR KNEE 3 VW LEFT HISTORY: Nontraumatic swelling and pain COMPARISON: CT of the left knee on 07/08/2018 FINDINGS: Radiographs of the left knee demonstrate no acute fracture or dislocation. Diffuse bone demineralization is noted. Severe left knee osteoarthrosis ismanifested by severe tricompartmental joint space narrowing, subchondralsclerosis, osteophytosis, and bilateral meniscal ch ondrocalcinosis.Vascular calcifications, left knee soft tissue swelling and a small tomoderate suprapatellar effusion are present. [facility], Radiant Results Inft User - 03/14/2019 12:25 AM CDTEXAM: XR KNEE3 VW LEFTHISTORY: Nontraumatic swelling and pain COMPARISON: CT of the left knee on 07/08/2018 FINDIN GS:Radiographs of the left knee demonstrate no acute fracture or dislocation.Diffuse bone demineralization is noted. Severe left knee osteoarthrosis ismanifested by severe tricompartmental joint space narrowing, subchondralsclerosis, osteophytosis, and bilateral meniscal chondrocalcinosis.Vascular calcifications, left knee soft tissue swelling and a small tomoderate suprapatellar effusion are present.IMPRESSIONNo acute bony abnormality.Severe left knee osteoarthrosis with chondrocalcinosis and moderate volumeknee joint effusion.Osteopenia.IGuevara MD., have reviewed this study and agree with the abovereport.[facility] GLUCOSE (AUTOMATED)2019-03-14 01:34:00 Test Item Value Reference Range Interpretation Comments POCT GLU (test code = 7646457465) 232 mg/dL 70-110 H Lab Interpretation (test code = Abnormal 06497-5) [facility] GLUCOSE (AUTOMATED)2019-03-13 21:12:00 Test Item Value Reference Range Interpretation Comments POCT GLU (test code = 6211973990) 228 mg/dL 70-110 H Lab Interpretation (test code = Abnormal 41909-5) [facility] GLUCOSE (AUTOMATED)2019-03-13 16:52:00 Test Item Value Reference Range Interpretation Comments POCT GLU (test code = 8247591277) 162 mg/dL 70-110 H Lab Interpretation (test code = Abnormal 81916-3) [facility] [id number] 13:44:00 Test Item Value Reference Range Interpretation Comments Ampicillin (test code = 4: Susceptible 78662-0) Cefazolin (test code = <=4: Susceptible 67260-7) Ceftriaxone (test code = <=1: Susceptible 86038-8) Ertapenem (test code = <=0.5: Susceptible 62104-4) Gentamicin (test code = <=1: Susceptible 71022-4) Levofloxacin (test code = <=0.12: Susceptible 01435-6) Nitrofurantoin (test code <=16: Susceptible = 80873-0) Piperacillin/Tazobactam <=4: Susceptible (test code = 87864-9) Trimethoprim/Sulfamethoxa <=20: Susceptible zole (test code = 45132-1) Nitrofurantoin is not recommended for use in treating pyelonephritis or systemic disease.[facility] [id number] 13:09:00 Test Item Value Reference Interpretation Comments Range Blood Culture positive, No growth AA Previous Culture-Aerobic identification to teresa mccord (test code = follow verified result 86370-4) was Culture In Progress on 03/11/2019 at 084 4 CDT Blood Culture positive, No growth AA Previous Culture-Anaerobic identification to preli minary (test code = follow verified result 78901-9) was Culture In Progress on 03/10/2019 at 230 1 CDT Lab Interpretation Abnormal (test code = 15365-7) [facility] CULTURE [id number] 13:09:00 Test Item Value Reference Range Interpretation Comments Gram stain Isolated from This is an imelda ended (test code = aerobic bottle report. These results 664-3) Gram negative rods have been appended to a previously preliminary nanette ified report. [facility] CULTURE [id number] 13:07:00 Test Item Value Reference Interpretation Comments Range Blood Culture positive, No growth AA Previous Culture-Aerobic identification to prelimi nary (test code = follow verified result 17753-4) was Culture In Progress on 03/10/2019 at 230 1 CDT Blood Culture positive, No growth AA Previous Culture-Anaerobic identification to preli minary (test code = follow verified result 52713-2) was Culture In Progress on 03/11/2019 at 084 6 CDT Lab Interpretation Abnormal (test code = 47412-5) [facility]2019-03-13 12:32:00 Test Item Value Reference Range Interpretation Comments POCT GLU (test code = 3982168927) 136 mg/dL 70-110 H Lab Interpretation (test code = Abnormal 86733-2) [facility] METABOLIC PANEL (NA, K, CL, CO2, GLUCOSE, BUN, CREATININE, CA)2019-03-13 11:26:00 Test Item Value Reference Range Interpretation Comments NA (test code = 130 mmol/L 135-145 L 3849615538) K (test code = 4.2 mmol/L 3.5-5 0282081060) CL (test code = 87 mmol/L 98-108 L 3122506423) CO2 TOTAL (test code = 37 mmol/L 23-31 H 1523978345) AGAP (test code = 2-16 1240710175) BUN (test code = 18 mg/dL 7-23 7437216647) GLUCOSE (test code = 141 mg/dL 70-110 H 2139416329) CREATININE (test code = 0.65 mg/dL 0.5-1.04 5108312195) CALCIUM (test code = 9.0 mg/dL 8.6-10.6 1690169202) eGFR Calculation mL/min/1.73m2 (Non-) (test code = 0071637470) eGFR Calculation mL/min/1.73m2 () (test code = 8777440073) KENA (test code = KENA) Association of Glomerular Filtration Rate (GFR) and Staging of Kidney Disease*+ + + +| GFR (mL/min/1.73 m2)?| With Kidney Damage?|?Without Kidney Damage+ --------+ --------+ +|?>90?|?S tage one?|? Normal?+ ---------+ ---------+ +|?60-89? |?Stage two?|? Decreased GFR? + --+ --+ ------+|?30-59?|?Stage three?|? Stage three? + --+ --+ ------+|?15-29?|?Stage four? |? Stage four?+ -------+ -------+ +|?<15 (or dialysis)?|?Stage five? |? Stage five?+ -------+ -------+ +*Each stage assumes the associated GFR level has been in effect for at least three months.?Stages 1 to 5, with or without kidney disease, indicate chronic kidney disease.Notes: Determination of stages one and two (with eGFR >59mL/min/1.73 m2) requires estimation of kidney damage for at least three months as defined by structural or functional abnormalities of the kidney, manifested by either:Pathological abnormalities or Markers of kidney damage (including abnormalities in the composition of the blood or urine or abnormalities in imaging tests). Lab Interpretation Abnormal (test code = 86231-6) [facility] WITH [id number] 11:20:00 Test Item Value Reference Range Interpretation Comments WBC (test code = See_Comment [Automated 3732-2) message] The sy stem which generated this result transmitted reference range : 4.30 - 11.10 10*3/?L. The reference range was not used to interpret this result as normal/abnormal . RBC (test code = See_Comment [Automated 702-7) message] The sy stem which generated this result transmitted reference range : 3.93 - 5.25 10*6/?L. The reference range was not used to interpret this result as normal/abnormal . HGB (test code = 13.1 g/dL 11.6-15 718-7) HCT (test code = 39.9 % 35.7-45.2 4544-3) MCV (test code = 87.5 fL 80.6-95.5 787-2) MCH (test code = 28.7 pg 25.9-32.8 785-6) MCHC (test code = 32.8 g/dL 31.6-35.1 786-4) RDW-SD (test code = 42.6 fL 39-49.9 97274-2) RDW-CV (test code = 13.3 % 12-15.5 788-0) PLT (test code = See_Comment [Automated 777-3) message] The sy stem which generated this result transmitted reference range : 166 - 358 10*3/ ?L. The reference r ilan was not used to interpret this result as normal/abnormal . MPV (test code = 12.1 fL 9.5-12.9 71329-5) NRBC/100 WBC (test See_Comment [Automat ed code = 7931906932) message] The system which generated this result transmitted reference range : 0.0 - 10.0 /100 WBCs. The refer ence range was not u sed to interpret th is result as normal/abnormal . NRBC x10^3 (test code <0.01 See_Comment [Auto mated = 5273643719) message] The s ystem which generated this result transmitted reference range : 10*3/?L. The reference range was not used to interpret this result as normal/abnormal . GRAN MAT (NEUT) % 77.9 % (test code = 770-8) IMM GRAN % (test code 0.50 % = 1902676551) LYMPH % (test code = 7.8 % 736-9) MONO % (test code = 10.7 % 5905-5) EOS % (test code = 2.8 % 713-8) BASO % (test code = 0.3 % 706-2) GRAN MAT x10^3(ANC) 4.67 10*3/uL 1.88-7.09 (test code = 0000780180) IMM GRAN x10^3 (test 0.03 10*3/uL 0-0.06 code = 9931372859) LYMPH x10^3 (test code 0.47 10*3/uL 1.32-3.29 L = 731-0) MONO x10^3 (test code 0.64 10*3/uL 0.33-0.92 = 742-7) EOS x10^3 (test code = 0.17 10*3/uL 0.03-0.39 711-2) BASO x10^3 (test code <0.03 0.01-0.07 = 704-7) Lab Interpretation Abnormal (test code = 28001-0) [facility] GLUCOSE (AUTOMATED)2019-03-13 01:38:00 Test Item Value Reference Range Interpretation Comments POCT GLU (test code = 0198378836) 232 mg/dL 70-110 H Lab Interpretation (test code = Abnormal 78645-2) [facility] GLUCOSE (AUTOMATED)2019-03-12 21:07:00 Test Item Value Reference Range Interpretation Comments POCT GLU (test code = 4599949147) 220 mg/dL 70-110 H Lab Interpretation (test code = Abnormal 94973-9) [facility] GLUCOSE (AUTOMATED)2019-03-12 16:39:00 Test Item Value Reference Range Interpretation Comments POCT GLU (test code = 7972307180) 198 mg/dL 70-110 H Lab Interpretation (test code = Abnormal 84547-5) [facility] GLUCOSE (AUTOMATED)2019-03-12 12:45:00 Test Item Value Reference Range Interpretation Comments POCT GLU (test code = 1632648058) 65 mg/dL 70-110 L Lab Interpretation (test code = Abnormal 30393-1) [facility] GLUCOSE (AUTOMATED)2019-03-12 02:06:00 Test Item Value Reference Range Interpretation Comments POCT GLU (test code = 3911363942) 114 mg/dL 70-110 H Lab Interpretation (test code = Abnormal 65996-4) [facility] NEGATIVE BLOOD PATHOGENS DNA [id number] 00:57:00 Test Item Value Reference Range Interpretation Comments Escherichia coli (test Positive Negative A code = 08324-3) KENA (test code = KENA) See blood culture result for additional information.?Testing included eight identification and six resistance marker targets. Lab Interpretation Abnormal (test code = 23471-2) [facility] GLUCOSE (AUTOMATED)2019-03-11 21:32:00 Test Item Value Reference Range Interpretation Comments POCT GLU (test code = 6398414061) 100 mg/dL 70-110 Lab Interpretation (test code = Normal 76571-2) [facility] (A1C)2019-03-11 19:23:00 Test Item Value Reference Interpretation Comments Range HGB A1C (test code = See_Comment H [Autom ated 4548-4) message] The system which generated this result transmitted reference range : 4.0 - 6.0 % NGSP. The reference range was not used to interpret this result as normal/abnormal . KENA (test code = %A1C (NGSP) KENA) Interpretation (ADA)4.8-5.6? Normal or (Non-Diabetic Range)5.7-6.4? Increased Risk (Pre-Diabetic)>6.5?D iabetes Indicated Lab Interpretation Abnormal (test code = 08133-3) [facility] GLUCOSE (AUTOMATED)2019-03-11 17:05:00 Test Item Value Reference Range Interpretation Comments POCT GLU (test code = 4125493309) 102 mg/dL 70-110 Lab Interpretation (test code = Normal 21596-2) [facility] (NA, K, CL, CO2, GLUCOSE, BUN, CREATININE, CA)2019-03-11 13:04:00 Test Item Value Reference Range Interpretation Comments NA (test code = 141 mmol/L 135-145 5369931567) K (test code = 4.2 mmol/L 3.5-5 3446717689) CL (test code = 103 mmol/L 98-108 1940496531) CO2 TOTAL (test code = 32 mmol/L 23-31 H 8129893527) AGAP (test code = 2-16 8555110834) BUN (test code = 23 mg/dL 7-23 6206027216) GLUCOSE (test code = 84 mg/dL 70-110 9733046387) CREATININE (test code = 0.82 mg/dL 0.5-1.04 8779219184) CALCIUM (test code = 8.6 mg/dL 8.6-10.6 0832636544) eGFR Calculation mL/min/1.73m2 (Non-) (test code = 8605211512) eGFR Calculation mL/min/1.73m2 () (test code = 6152589179) KENA (test code = KENA) Association of Glomerular Filtration Rate (GFR) and Staging of Kidney Disease*+ + + +| GFR (mL/min/1.73 m2)?| With Kidney Damage?|?Without Kidney Damage+ --------+ --------+ +|?>90?|?S tage one?|? Normal?+ ---------+ ---------+ +|?60-89? ?|?Stage two?|? Decreased GFR? + --+ --+ ------+|?30-59?|?Stage three?|? Stage three? + --+ --+ ------+|?15-29?|?Stage four? |? Stage four?+ -------+ -------+ +|?<15 (or dialysis)?|?Stage five? |? Stage five?+ -------+ -------+ +*Each stage assumes the associated GFR level has been in effect for at least three months.?Stages 1 to 5, with or without kidney disease, indicate chronic kidney disease.Notes: Determination of stages one and two (with eGFR >59mL/min/1.73 m2) requires estimation of kidney damage for at least three months as defined by structural or functional abnormalities of the kidney, manifested by either:Pathological abnormalities or Markers of kidney damage (including abnormalities in the composition of the blood or urine or abnormalities in imaging tests). Lab Interpretation Abnormal (test code = 47128-2) [facility]2019-03-11 12:58:00 Test Item Value Reference Range Interpretation Comments POCT GLU (test code = 2722526456) 73 mg/dL 70-110 Lab Interpretation (test code = Normal 93537-3) [facility] WITH [id number] 12:04:00 Test Item Value Reference Range Interpretation Comments WBC (test code = See_Comment [Automated 5159-2) message] The sy stem which generated this result transmitted reference range : 4.30 - 11.10 10*3/?L. The reference range was not used to interpret this result as normal/abnormal . RBC (test code = See_Comment [Automated 972-8) message] The sy stem which generated this result transmitted reference range : 3.93 - 5.25 10*6/?L. The reference range was not used to interpret this result as normal/abnormal . HGB (test code = 11.6 g/dL 11.6-15 718-7) HCT (test code = 36.3 % 35.7-45.2 4544-3) MCV (test code = 90.5 fL 80.6-95.5 787-2) MCH (test code = 28.9 pg 25.9-32.8 785-6) MCHC (test code = 32.0 g/dL 31.6-35.1 786-4) RDW-SD (test code = 47.1 fL 39-49.9 96929-7) RDW-CV (test code = 14.2 % 12-15.5 788-0) PLT (test code = See_Comment L [Automated 777-3) message] The sy stem which generated this result transmitted reference range : 166 - 358 10*3/ ?L. The reference r ilan was not used to interpret this result as normal/abnormal . MPV (test code = 12.7 fL 9.5-12.9 77985-7) NRBC/100 WBC (test See_Comment [Automat ed code = 2657629555) message] The system which generated this result transmitted reference range : 0.0 - 10.0 /100 WBCs. The refer ence range was not u sed to interpret th is result as normal/abnormal . NRBC x10^3 (test code <0.01 See_Comment [Auto mated = 9476301853) message] The s ystem which generated this result transmitted reference range : 10*3/?L. The reference range was not used to interpret this result as normal/abnormal . GRAN MAT (NEUT) % 85.3 % (test code = 770-8) IMM GRAN % (test code 0.40 % = 2068437267) LYMPH % (test code = 6.0 % 736-9) MONO % (test code = 7.9 % 5905-5) EOS % (test code = 0.2 % 713-8) BASO % (test code = 0.2 % 706-2) GRAN MAT x10^3(ANC) 8.01 10*3/uL 1.88-7.09 H (test code = 8264728540) IMM GRAN x10^3 (test 0.04 10*3/uL 0-0.06 code = 4425208288) LYMPH x10^3 (test code 0.56 10*3/uL 1.32-3.29 L = 731-0) MONO x10^3 (test code 0.74 10*3/uL 0.33-0.92 = 742-7) EOS x10^3 (test code = <0.03 0.03-0.39 L 711-2) BASO x10^3 (test code <0.03 0.01-0.07 = 704-7) Lab Interpretation Abnormal (test code = 54187-1) [facility] 04:01:00 Test Item Value Reference Range Interpretation Comments POCT GLU (test code = 128 mg/dL 70-110 H 1262160660) KENA (test code = KENA) Notified Provider Lab Interpretation (test Abnormal code = 74455-9) [facility] [id number] 02:45:38 Cardiomegaly, bilateral mild pulmonary edema. No parenchymal consolidationis appreciated. IMaryuri MD., have reviewed this study and agree with the abovereport. EXAM: XR CHEST 1 VW HISTORY: fever in adult COMPARISON: CT chest on 10/30/2018 and radiographs on 10/29/2018. FINDINGS: Bilateral mildpulmonary edema is again noted. No pleural effusion or pneumothorax. The heart is enlarged, unchanged. The aorta is tortuous and partiallycalcified. No acute osseous abnormality is identified. Severeosteoarthrosis is seenleft glenohumeral joint with deformation of the humeral head. Metallichardwareare seen in the right humeral head. Prior left distal clavicleresection. [facility], Radiant Results InftUser - 03/10/2019 9:47 PM CDTEXAM: XR CHEST 1 VWHISTORY: fever in adult COMPARISON: CT chest on 10/30/2018 and radiographs on 10/29/2018.FINDINGS:Bilateral mild pulmonary edema is again noted.No pleuraleffusion or pneumothorax. The heart is enlarged, unchanged. The aorta is tortuous and partiallycalcified. No acute osseous abnormality is identified. 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 Metallichardware are seen in the right humeral head. Prior left distal clavicleresection.IMPRESSIONCardiomegaly, bilateral mild pulmonary edema. No parenchymal consolidationis appreciated.I, Rachel Shaikh MD., have reviewed this study and agree with the abovereport. [facility] 02:12:00 Test Item Value Reference Range Interpretation Comments DIGOXIN (test code = 1.0 ng/mL 0.8-1.6 3847799345) KENA (test code = KENA) Arrythmias:?1.5 - 2.0 ng/mLToxic Range:? Greater than or equal to 2.4 ng/mL Lab Interpretation (test Normal code = 67637-8) [facility]23[facility] 01:22:00 Test Item Value Reference Range Interpretation Comments TROPONIN I (test <0.012 See_Comment [Automated code = 9114306680) message] The system which generated this result transmitted reference range : <=0.034 ng/mL. The reference range was not used to interpr et this result as normal/abnormal . KENA (test code = Equal or Less than KENA) 0.034 ng/ml---Normal?Not e: Cardiac troponin begins to rise 3-4 hours after the onset of ischemia. Repeat in 4-6 hours if the sample was drawn within 3-4 hours of the onset of the symptom and found normal. Between 0.035 and 0.120 ng/mL--- Borderline. Questionable myocardial injury or necrosis?Note: Serial measurement may be necessary to confirm or exclude the diagnosis of myocardial injury or necrosis; Clinical correlation (symptoms, EKGs, imaging studies, and others) required; Repeat in 4-6 hours if clinically indicated.? Equal or Higher than 0.121 ng/mL---Abnormal. Myocardial Injury or Necrosis Likely? Biotin has been reported to cause a negative bias, interpret results relative to patient's use of biotin.? ? Lab Interpretation Normal (test code = 18648-1) [facility] (NA, K, CL, CO2, GLUCOSE, BUN, CREATININE, CA)2019-03-11 01:11:00 Test Item Value Reference Range Interpretation Comments NA (test code = 138 mmol/L 135-145 6501359608) K (test code = 5.2 mmol/L 3.5-5 H 6383617561) CL (test code = 97 mmol/L 98-108 L 4142946554) CO2 TOTAL (test code = 29 mmol/L 23-31 8659565380) AGAP (test code = 2-16 1157867871) BUN (test code = 26 mg/dL 7-23 H 5344769876) GLUCOSE (test code = 259 mg/dL 70-110 H 2259442583) CREATININE (test code = 0.78 mg/dL 0.5-1.04 4171113421) CALCIUM (test code = 9.1 mg/dL 8.6-10.6 8121085048) eGFR Calculation mL/min/1.73m2 (Non-) (test code = 4285599862) eGFR Calculation mL/min/1.73m2 () (test code = 8871464285) KENA (test code = KENA) Association of Glomerular Filtration Rate (GFR) and Staging of Kidney Disease*+ + + +| GFR (mL/min/1.73 m2)?| With Kidney Damage?|?Without Kidney Damage+ --------+ --------+ +|?>90?|?S tage one?|? Normal?+ ---------+ ---------+ +|?60-89? |?Stage two?|? Decreased GFR? + --+ --+ ------+|?30-59?|?Stage three?|? Stage three? + --+ --+ ------+|?15-29?|?Stage four? |? Stage four?+ -------+ -------+ +|?<15 (or dialysis)?|?Stage five? |? Stage five?+ -------+ -------+ +*Each stage assumes the associated GFR level has been in effect for at least three months.?Stages 1 to 5, with or without kidney disease, indicate chronic kidney disease.Notes: Determination of stages one and two (with eGFR >59mL/min/1.73 m2) requires estimation of kidney damage for at least three months as defined by structural or functional abnormalities of the kidney, manifested by either:Pathological abnormalities or Markers of kidney damage (including abnormalities in the composition of the blood or urine or abnormalities in imaging tests). Lab Interpretation Abnormal (test code = 50501-7) [facility] (ALB, T.PRO, BILI T, BU/BC, ALT, AST, ALK PHOS)2019-03-11 01:11:00 Test Item Value Reference Range Interpretation Comments TOTAL BILI (test code = 1526076358) 0.6 mg/dL 0.1-1.1 BILI UNCON (test code = 7556669264) 0.4 mg/dL 0.1-1.1 BILI CONJ (test code = 5125584798) 0.0 mg/dL 0-0.3 T PROTEIN (test code = 2905985819) 7.6 g/dL 6.3-8.2 ALBUMIN (test code = 5898169724) 4.5 g/dL 3.5-5 ALK PHOS (test code = 1936719411) 95 U/L 34-122 ALT(SGPT) (test code = 5491423467) 21 U/L 9-51 AST(SGOT) (test code = 9384980435) 23 U/L 13-40 Lab Interpretation (test code = Normal 71638-1) [facility] System[facility] [id number] 01:11:00 Test Item Value Reference Range Interpretation Comments LIPASE (test code = 8254508820) 25 U/L 0-220 Lab Interpretation (test code = Normal 25174-1) [facility]2019-09-03 01:07:00 Test Item Value Reference Range Interpretation Comments APPEARANCE (test code Slightly Cloudy Clear A = 3056001717) COLOR (test code = Yellow Yellow 7100647153) PH (test code = 4.8-8.0 4030541901) SP GRAVITY (test code 1.003-1.030 = 5927349385) GLU U QUAL (test code >1000 mg/dL Negative A = 1821506344) BLOOD (test code = Large Negative A 4119911064) KETONES (test code = Negative Negative 1560338866) PROTEIN (test code = 100 mg/dL Negative A 2887-8) UROBILIN (test code = 0.2 mg/dL See_Comment [Auto mated 2364539198) message] The system which generated this result transmit rayna reference range : 0-1.0 mg/dL. Th e reference range was not used to interpret this result as normal/abnormal . BILIRUBIN (test code Negative Negative = 5755763177) NITRITE (test code = Positive Negative A 6222279935) LEUK TORSTEN (test code Small Negative A = 2564835979) RBC/HPF (test code = See_Comment H [Autom ated 9343334474) message] The system which generated this result transmit rayna reference range : 0 - 3 HPF. The reference range was not used to interpret this result as normal/abnormal . WBC/HPF (test code = >182 See_Comment H [Autom ated 8885785521) message] The system which generated this result transmit rayna reference range : 0 - 5 HPF. The reference range was not used to interpret this result as normal/abnormal . BACTERIA (test code = Many Negative A 8909954840) AMORPHOUS (test code Moderate HPF = 6723440438) Lab Interpretation Abnormal (test code = 62777-2) [facility] WITH [id number] 00:56:00 Test Item Value Reference Range Interpretation Comments WBC (test code = See_Comment [Automated 6690-2) message] The sy stem which generated this result transmitted reference range : 4.30 - 11.10 10*3/?L. The reference range was not used to interpret this result as normal/abnormal . RBC (test code = See_Comment [Automated 789-8) message] The sy stem which generated this result transmitted reference range : 3.93 - 5.25 10*6/?L. The reference range was not used to interpret this result as normal/abnormal . HGB (test code = 13.4 g/dL 11.6-15 718-7) HCT (test code = 40.9 % 35.7-45.2 4544-3) MCV (test code = 88.7 fL 80.6-95.5 787-2) MCH (test code = 29.1 pg 25.9-32.8 785-6) MCHC (test code = 32.8 g/dL 31.6-35.1 786-4) RDW-SD (test code = 45.3 fL 39-49.9 20181-7) RDW-CV (test code = 14.1 % 12-15.5 788-0) PLT (test code = See_Comment [Automated 777-3) message] The sy stem which generated this result transmitted reference range : 166 - 358 10*3/ ?L. The reference r ilan was not used to interpret this result as normal/abnormal . MPV (test code = 12.6 fL 9.5-12.9 21048-2) NRBC/100 WBC (test See_Comment [Automat ed code = 0613022247) message] The system which generated this result transmitted reference range : 0.0 - 10.0 /100 WBCs. The refer ence range was not u sed to interpret th is result as normal/abnormal . NRBC x10^3 (test code <0.01 See_Comment [Auto mated = 7072769065) message] The s ystem which generated this result transmitted reference range : 10*3/?L. The reference range was not used to interpret this result as normal/abnormal . GRAN MAT (NEUT) % 90.0 % (test code = 770-8) IMM GRAN % (test code 0.30 % = 4058295693) LYMPH % (test code = 4.1 % 736-9) MONO % (test code = 3.9 % 5905-5) EOS % (test code = 1.5 % 713-8) BASO % (test code = 0.2 % 706-2) GRAN MAT x10^3(ANC) 8.35 10*3/uL 1.88-7.09 H (test code = 4440249826) IMM GRAN x10^3 (test 0.03 10*3/uL 0-0.06 code = 7092385530) LYMPH x10^3 (test code 0.38 10*3/uL 1.32-3.29 L = 731-0) MONO x10^3 (test code 0.36 10*3/uL 0.33-0.92 = 742-7) EOS x10^3 (test code = 0.14 10*3/uL 0.03-0.39 711-2) BASO x10^3 (test code <0.03 0.01-0.07 = 704-7) Lab Interpretation Abnormal (test code = 60005-1) [facility] Whole [id number] 00:03:00 Test Item Value Reference Range Interpretation Comments LACTIC ACID (test code = 1.88 mmol/L 0.5-2.2 3316327454) Lab Interpretation (test code = Normal 84622-0) [facility]
[2021-09-15 18:57] LABS: Absolute Lymphocytes (CBC) 0.3 K/uL (0.7-4.9); Hematocrit 28.7 % (36.0-45.0); Lymphocytes % 5.8 % (15.3-44.8); MPV 9.7 fL (7.6-11.3); RBC Red Blood Cell Count 3.87 M/uL (3.86-4.86)
[2021-09-15 18:59] LABS: Protime INR 1.33
[2021-09-15 19:11] LABS: Albumin 3.4 g/dL (3.4-5.0); Magnesium 1.9 mg/dL (1.8-2.4); Potassium 4.4 mmol/L (3.5-5.1)
[2021-09-15 19:18] LABS: Bilirubin Direct 0.1 mg/dL (0-0.2); Bilirubin Total 0.3 mg/dL (0.2-1.0); Protein, Total 7.2 g/dL (6.4-8.2)
--- NOTE | 2021-09-15 19:26 | RAD REPORT ---
EXAM DESCRIPTION: CT - CTHCSPWOC - 09/15/2021 6:56 pm CLINICAL HISTORY: Trauma, head and neck injury. PAIN COMPARISON: <Comparisons> TECHNIQUE: Axial 5 mm thick images of the head were obtained. Axial 2 mm thick images of the cervical spine were obtained with sagittal and coronal reconstruction images generated and reviewed. All CT scans are performed using dose optimization technique as appropriate and may include automated exposure control or mA/KV adjustment according to patient size. FINDINGS: CT HEAD WITHOUT CONTRAST: No acute hemorrhage, hydrocephalus or extra-axial collection is identified.No areas of brain edema or midline shift. Mild chronic small vessel ischemic changes. The paranasal sinuses and mastoids are clear.The calvarium is intact. CT CERVICAL SPINE WITHOUT CONTRAST: 4 millimeters anterolisthesis of C3 on C4 presumably related underlying degenerative changes. . Multi level cervical spondylosis with varying degrees of neural foraminal narrowing.No prevertebral soft ti ssues swelling is identified. No acute fracture. IMPRESSION: No acute intracranial or cervical spine findings.
--- NOTE | 2021-09-15 19:38 | RAD REPORT ---
EXAM DESCRIPTION: RAD - Chest Single View - 09/15/2021 7:14 pm CLINICAL HISTORY: SOB COMPARISON: Chest Pa And Lat (2 Views) dated 10/22/2018 FINDINGS: Lines: None. Lungs: No evidence of edema or pneumonia. Pleural: No significant pleural effusions or pneumothorax. Cardiac: Cardiomegaly. Bones: No acute fractures. Soft tissue anchors in the right humeral head. Other: IMPRESSION: No acute cardiopulmonary disease.
--- NOTE | 2021-09-15 19:46 | RAD REPORT ---
EXAM DESCRIPTION: US - Extrem Venous W Compress Roger - 09/15/2021 7:27 pm CLINICAL HISTORY: Pain;Swelling COMPARISON: Extremity Venous Uni Ltd dated 09/09/2021 TECHNIQUE: Real-time sonographic evaluation of the lower extremity deep venous systems was performed using color Doppler, grayscale, and compression. FINDINGS: Bilateral lower extremities. Normal compressibility, flow augmentation, phasic flow and spontaneous flow is identified in both the left and right lower extremity deep venous systems. No intraluminal filling defects seen. IMPRESSION: No DVT in either lower extremity.
[2021-09-15] MEDS ORDERED: MORPHINE 4 MG/ML SYR ONE (19:49)
[2021-09-15] MEDS ORDERED: ONDANSETRON 4 MG/2 ML VIAL ONE (19:49)
[2021-09-15] MEDS ORDERED: ACETAMINOPHEN 500 MG TAB ONE (20:32)
[2021-09-15] MEDS ORDERED: FUROSEMIDE 40 MG/4 ML VIAL ONE (20:40)
--- NOTE | 2021-09-15 20:55 | EDPHYS ---
Physician Documentation [facility] Name: Minda Mcdowell Age: 86 yrs Sex: Female : 1935 Arrival Date: 09/15/2021 Time: 17:54 Bed 19 Private MD: Neo Garcia ED Physician Herberth Phillips HPI: 09/15 18:30 This 86 yrs old Female presents to ER via Wheelchair with complaints of High Blood cp Pressure, Headache, Leg Pain. 18:30 The patient has elevated blood pressure and discovered this at home. cp 18:30 Onset: The symptoms/episode began/occurred today. Associated signs and symptoms: cp Pertinent positives: dizziness, headache, lightheadedness, shortness of breath, Pertinent negatives: chest pain, vomiting. Severity of symptoms: in the emergency department the blood pressure is systolic pressure 137. 18:30 Patient reports pain starts in back of head and neck and radiates up back of head. cp Patient reports she has been managing wound to lower leg since July 2021 and has appt scheduled with wound care. Historical: - Allergies: 18:04 PENICILLINS; ld1 18:04 Keflex; ld1 18:04 Vancomycin; ld1 18:04 Levaquin; ld1 - PMHx: 18:04 Diabetes mellitus; Hypertensive disorder; Heart disease; CHF; Hypercholesterolemia; ld1 - PSHx: 18:04 Cholecystectomy; ld1 - Immunization history:: Adult Immunizations up to date, Client reports receiving the 2nd dose of the Covid vaccine. - Social history:: Smoking status: Patient denies any tobacco usage or history of. Patient/guardian denies using alcohol. ROS: 18:35 Constitutional: Negative for body aches, chills, fever, poor PO intake. cp 18:35 Eyes: Negative for injury, pain, redness, and discharge. cp 18:35 ENT: Negative for drainage from ear(s), ear pain, sore throat, difficulty swallowing, difficulty handling secretions. 18:35 Neck: Positive for pain with movement, pain at rest. 18:35 Cardiovascular: Positive for edema, Negative for chest pain, palpitations. 18:35 Respiratory: Positive for shortness of breath, at rest. Negative for cough, wheezing. 18:35 Abdomen/GI: Negative for abdominal pain, vomiting, diarrhea, constipation. 18:35 Skin: Positive for open wound left lower leg. 18:35 Neuro: Positive for dizziness, headache, Negative for altered mental status, numbness, weakness. 18:35 All other systems are negative. Exam: 18:40 Constitutional: The patient appears in no acute distress, alert, awake, cp non-diaphoretic, non-toxic, well developed, well nourished, overweight 18:40 Head/Face: Normocephalic, atraumatic. cp 18:40 Eyes: Periorbital structures: appear normal, Pupils: equal, round, and reactive to light and accomodation, Extraocular movements: intact throughout, Conjunctiva: normal, no exudate, no injection, Sclera: no appreciated abnormality, Lids and lashes: appear normal, bilaterally. 18:40 ENT: External ear(s): are unremarkable, Nose: is normal, Mouth: Lips: moist, Oral mucosa: moist, Posterior pharynx: Airway: no evidence of obstruction, patent. 18:40 Neck: External neck: tenderness, that is mild, left lateral neck, ROM/movement: pain, that is mild, with rotation to the right, limited range of motion, is not appreciated, nuchal rigidity, is not appreciated, Lymph nodes: no appreciated lymphadenopathy. 18:40 Chest/axilla: Inspection: normal, Palpation: is normal, no crepitus, no tenderness. 18:40 Cardiovascular: Rate: normal, Rhythm: irregular, Edema: ankle edema, that is moderate, JVD: is not appreciated. 18:40 Respiratory: the patient does not display signs of respiratory distress, Respirations: normal, no use of accessory muscles, no retractions, labored breathing, is not present, Breath sounds: decreased breath sounds, that are mild, throughout, stridor, is not appreciated, wheezing: is not appreciated. 18:40 Abdomen/GI: Inspection: abdomen appears normal, Palpation: abdomen is soft and non-tender, in all quadrants. 18:40 Skin: small open wound noted to left lower leg with mild erythema and swelling. 18:40 Neuro: Orientation: to person, place \T\ time. Mentation: is normal. 19:33 ECG was reviewed by the Attending Physician. cp Vital Signs: 18:01 BP 137 / 71; Pulse 78; Resp 18; Temp 98.0(O); Pulse Ox 95% on R/A; Weight 89.81 kg; ld1 Height 5 ft. 7 in. (170.18 cm); Pain 10/10; 18:23 BP 132 / 86; Pulse 78 MON; Resp 23 S; Temp 98(O); Pulse Ox 98% on R/A; Weight 89.81 kg; ag7 Height 5 ft. 7 in. (170.18 cm); Pain 10/10; 19:32 BP 129 / 75; Pulse 75; Resp 17; Pulse Ox 97% on R/A; vc1 21:00 BP 147 / 73; Pulse 79; Resp 17; Pulse Ox 96% on R/A; vc1 21:00 BP 147 / 73; Pulse 79; Resp 17; Pulse Ox 96% on R/A; vc1 21:30 Pain 5/10; vc1 22:00 BP 124 / 74; Pulse 75; Resp 18; Pulse Ox 97% on R/A; vc1 18:23 Body Mass Index 31.01 (89.81 kg, 170.18 cm) ag7 MDM: 18:24 Patient medically screened. cp 21:25 Data reviewed: vital signs, nurses notes, lab test result(s), EKG, radiologic studies, cp plain films, ultrasound. 21:25 Test interpretation: by ED physician or midlevel provider: ECG, plain radiologic cp studies. Counseling: I had a detailed discussion with the patient and/or guardian regarding: the historical points, exam findings, and any diagnostic results supporting the discharge/admit diagnosis, lab results, radiology results, the need for outpatient follow up, a family practitioner, to return to the emergency department if symptoms worsen or persist or if there are any questions or concerns that arise at home. ED course: VSS. Pain improved with meds. Patient on rate control medication and also reports she is taking Eliquis daily. No signs of respiratory distress. Will discharge to home for continued monitoring. 09/15 18:26 Order name: Basic Metabolic Panel cp 09/15 18: Order name: CBC with Diff cp 09/15 18: Order name: LFT's; Complete Time: 19:49 cp 09/15 19:50 Interpretation: Normal except: ALK 153; GLOB 3.8; A/G 0.9. cp 09/15 18: Order name: Magnesium; Complete Time: 19:49 cp 03/10 18:26 Order name: NT PRO-BNP; Complete Time: 19:49 cp 10 18:26 Order name: PT-INR; Complete Time: 19:49 cp 10 18:26 Order name: Troponin HS; Complete Time: 19:49 cp 09/15 18:27 Order name: Basic Metabolic Panel; Complete Time: 19:49 EDMS 10 19:50 Interpretation: Normal except: NA 135; CL 97; GLUC 241; GFR 69. cp 09/15 18:27 Order name: CBC with Automated Diff; Complete Time: 19:49 EDMS 10 19:50 Interpretation: Normal except: HGB 9.1; HCT 28.7; MCV 74.2; MCH 23.6; MCHC 31.9; RDW cp 17.0; THUAN% 82.7; LYM% 5.8; LYMA 0.3. 0310 20:16 Order name: Digoxin vc1 09/15 20:16 Order name: Digoxin Level; Complete Time: 21:55 EDMS 09/15 18:26 Order name: CT Head C Spine; Complete Time: 19:49 cp 09/15 18:26 Order name: XRAY Chest (1 view); Complete Time: 19:49 cp 09/15 18:26 Order name: EKG; Complete Time: 18:27 cp 09/15 18:26 Order name: Cardiac monitoring; Complete Time: 19:34 cp 09/15 18:26 Order name: EKG - Nurse/Tech; Complete Time: 19:34 cp 09/15 18:26 Order name: IV Saline Lock; Complete Time: 22:44 cp 09/15 18:26 Order name: Labs collected and sent; Complete Time: 22:44 cp 09/15 18:26 Order name: O2 Per Protocol; Complete Time: 22:44 cp 09/15 18:26 Order name: O2 Sat Monitoring; Complete Time: 22:44 cp 09/15 18:26 Order name: Wound dressing; Complete Time: 22:44 cp 10 18:26 Order name: US Extremity Venous W Compression Roger; Complete Time: 19:49 cp EC:33 Rate is 69 beats/min. Rhythm is irregular. QRS interval is normal. QT interval is cp normal. T waves are Inverted in lead aVR. Interpreted by me. Reviewed by me. Administered Medications: 20:27 Not Given (Patient Refused): Zofran (Ondansetron) 4 mg IVP once; over 2 minutes vc1 20:28 Not Given (Patient Refused): fentaNYL (PF) 25 mcg IVP once; RASS on ADMIN: Combtv4, vc1 Very Agttd3, Agttd2, Rstlss1, AlertClm0, Drwsy-1, Lt Sdtn-2, Mod Sdtn-3, Dp Sdtn-4, UnArsble-5 20:32 Drug: Tylenol 1000 mg Route: PO; vc1 21:30 Follow up: Pain 11/15 Adult; Response: No adverse reaction; Pain is decreased vc1 20:40 Drug: Lasix (furosemide) 40 mg Route: IVP; Site: left wrist; vc1 21:00 Follow up: BP 147 / 73; Pulse 79 bpm; Resp 17 bpm; Pulse Ox 96% RA; Response: No vc1 adverse reaction 22:42 Not Given (Patient Refused): Lidoderm Patch 5 % (700 mg/patch) 1 patches Topical once; vc1 leave on for 12 hours; cover most painful area; may cut into smaller pieces Disposition Summary: 09/15/21 21:57 Discharge Ordered Location: Home(09/15/21 21:57) cp Problem: new(09/15/21 21:57) cp Symptoms: have improved(09/15/21 21:57) cp Condition: Stable(09/15/21 21:57) cp Diagnosis - Headache(09/15/21 21:57) cp - Leg Laceration/ Open wound of lower leg(09/15/21 21:57) cp - Unspecified atrial fibrillation(09/15/21 21:57) cp - Unspecified combined systolic (congestive) and diastolic (congestive) heart failure cp Followup: cp - With: Private Physician - When: 2 - 3 days - Reason: Recheck today's complaints Discharge Instructions: - Discharge Summary Sheet cp - Atrial Fibrillation cp - Heart Failure, Diagnosis cp - General Headache Without Cause cp Forms: - Medication Reconciliation Form cp - Thank You Letter cp - Antibiotic Education cp - Prescription Opioid Use cp Prescriptions: - Doxycycline Hyclate 100 mg Oral Tablet - take 1 tablet by ORAL route every 12 hours; 20 tablet; Refills: 0, Product cp Selection Permitted - Lidoderm 5 % Topical adhesive patch,medicated - apply 1 patch by TOPICAL route once daily; 1 box; Refills: 0, Product Selection cp Permitted Signatures: Dispatcher [employer] EDMS Royce Persaud PA PA cp Dibbern, Lauren RN RN ld1 Jo Valle RN RN vc1 Corrections: (The following items were deleted from the chart) 20:56 20:55 Home cp cp 20:56 20:55 new cp cp 20:56 20:55 have improved cp cp 20:56 20:55 Stable cp cp 20:56 20:55 Headache cp cp 20:56 20:55 Leg Laceration/ Open wound of lower leg cp cp 20:56 20:55 Unspecified atrial fibrillation cp cp
--- NOTE | 2021-09-15 20:55 | ER ---
Nurse's Notes [facility] [place] Name: Minda Mcdowell Age: 86 yrs Sex: Female : 1935 Arrival Date: 09/15/2021 Time: 17:54 Bed 19 Private MD: Neo Garcia Diagnosis: Headache;Leg Laceration/ Open wound of lower leg;Unspecified atrial fibrillation;Unspecified combined systolic (congestive) and diastolic (congestive) heart failure Presentation: 09/15 18:01 Chief complaint: Patient states: Pounding head \T\ stiff neck X 3 days. Wound to lower ld1 left leg. Dizzy \T\ lightheaded began today. Coronavirus screen: Client presents with at least one sign or symptom that may indicate coronavirus-19. Standard/surgical mask placed on the client. Ebola Screen: No symptoms or risks identified at this time. Initial Sepsis Screen: Does the patient meet any 2 criteria? No. Patient's initial sepsis screen is negative. Does the patient have a suspected source of infection? No. Patient's initial sepsis screen is negative. Risk Assessment: Do you want to hurt yourself or someone else? Patient reports no desire to harm self or others. Onset of symptoms was September 15, 2021. 18:01 Method Of Arrival: Wheelchair ld1 18:01 Acuity: HARMONY 3 ld1 Triage Assessment: 18:04 Headache History: Denies prior headaches. General: Appears in no apparent distress. ld1 comfortable, Behavior is calm, cooperative, appropriate for age. Pain: Complains of pain in face and neck Pain does not radiate. Pain currently is 10 out of 10 on a pain scale. Quality of pain is described as throbbing, Pain began gradually, Is continuous. Neuro: Level of Consciousness is awake, alert, obeys commands, Oriented to person, place, time, situation, Reports dizziness. Respiratory: Airway is patent Respiratory effort is even, unlabored. 19:30 Pain: Complains of pain in back of head Pain does not radiate. Pain currently is 8 out vc1 of 10 on a pain scale. Also complains of photophobia. Historical: - Allergies: 18:04 PENICILLINS; ld1 18:04 Keflex; ld1 18:04 Vancomycin; ld1 18:04 Levaquin; ld1 - PMHx: 18:04 Diabetes mellitus; Hypertensive disorder; Heart disease; CHF; Hypercholesterolemia; ld1 - PSHx: 18:04 Cholecystectomy; ld1 - Immunization history:: Adult Immunizations up to date, Client reports receiving the 2nd dose of the Covid vaccine. - Social history:: Smoking status: Patient denies any tobacco usage or history of. Patient/guardian denies using alcohol. Screenin:00 Abuse screen: Denies threats or abuse. Nutritional screening: No deficits noted. vc1 Tuberculosis screening: No symptoms or risk factors identified. Fall Risk None identified. Assessment: 18:25 General: Appears distressed, Behavior is cooperative, appropriate for age. Pain: ag7 Complains of pain in HEAD, NECK Pain does not radiate. Pain currently is 10 out of 10 on a pain scale. Quality of pain is described as aching, Pain began suddenly, Is continuous. Neuro: Level of Consciousness is awake, alert, obeys commands, Oriented to person, place, situation, Appropriate for age Carpentry Professional are equal bilaterally. Cardiovascular: Heart tones S1 S2 S3 Bruits absent Cardiac rub absent Murmur absent Capillary refill < 3 seconds is brisk Clubbing of nail beds is absent Patient's skin is warm and dry. Pulses are 1+ in right radial artery and left radial artery Edema is 4+ to LOWER EXTREMITY BILATERAL pitting to LOWER EXTREMITY BILATERAL. Respiratory: Airway is patent Trachea midline Respiratory effort is even, labored, Respiratory pattern is regular, symmetrical, Breath sounds are diminished bilaterally. 19:30 General: Appears in no apparent distress. uncomfortable, Behavior is cooperative, vc1 appropriate for age. Pain: Complains of pain in back of head Pain does not radiate. Neuro: Level of Consciousness is awake, alert, obeys commands, Oriented to person, place, situation, Appropriate for age. Cardiovascular: Edema is 4+ to left midcalf, left ankle, left foot, right midcalf, right ankle and right foot pitting to left midcalf, left ankle, left foot, right midcalf, right ankle and right foot. Respiratory: Airway is patent Respiratory effort is even, labored, Respiratory pattern is regular, symmetrical. Derm: Derm: Skin is thin, has skin tears on left lateral leg. 20:30 Reassessment: No changes from previously documented assessment. Patient and/or family vc1 updated on plan of care and expected duration. Pain level reassessed. Patient is alert, oriented x 3, equal unlabored respirations, skin warm/dry/pink. Patient states symptoms have not improved. 21:30 Reassessment: No changes from previously documented assessment. Patient and/or family vc1 updated on plan of care and expected duration. Pain level reassessed. Patient is alert, oriented x 3, equal unlabored respirations, skin warm/dry/pink. Patient states symptoms have not improved. 22:00 General: Appears in no apparent distress. uncomfortable, Behavior is calm, cooperative, vc1 appropriate for age. Pain: Complains of pain in back of head Pain does not radiate. Pain currently is 4 out of 10 on a pain scale. Neuro: Level of Consciousness is awake, alert, obeys commands, Oriented to person, place, situation, Appropriate for age Carpentry Professional are equal bilaterally. Vital Signs: 18:01 BP 137 / 71; Pulse 78; Resp 18; Temp 98.0(O); Pulse Ox 95% on R/A; Weight 89.81 kg; ld1 Height 5 ft. 7 in. (170.18 cm); Pain 10/10; 18:23 BP 132 / 86; Pulse 78 MON; Resp 23 S; Temp 98(O); Pulse Ox 98% on R/A; Weight 89.81 kg; ag7 Height 5 ft. 7 in. (170.18 cm); Pain 10/10; 19:32 BP 129 / 75; Pulse 75; Resp 17; Pulse Ox 97% on R/A; vc1 21:00 BP 147 / 73; Pulse 79; Resp 17; Pulse Ox 96% on R/A; vc1 21:00 BP 147 / 73; Pulse 79; Resp 17; Pulse Ox 96% on R/A; vc1 21:30 Pain 5/10; vc1 22:00 BP 124 / 74; Pulse 75; Resp 18; Pulse Ox 97% on R/A; vc1 18:23 Body Mass Index 31.01 (89.81 kg, 170.18 cm) ag7 ED Course: 17:54 Patient arrived in ED. as 17:54 Neo Garcia DO is Private Physician. as 18:04 Triage completed. ld1 18:04 Arm band placed on right wrist. ld1 18:07 Royce Persaud PA is PHCP. cp 18:07 Herberth Phillips DO is Attending Physician. cp 18:08 Alma Fletcher, RN is Primary Nurse. ag7 18:56 CT Head C Spine In Process Unspecified. EDMS 19:00 Patient has correct armband on for positive identification. Bed in low position. Call vc1 light in reach. 19:14 XRAY Chest (1 view) In Process Unspecified. EDMS 19:27 US Extremity Venous W Compression Roger In Process Unspecified. EDMS 20:24 Inserted saline lock: 22 gauge in left wrist, using aseptic technique. tw5 20:36 Digoxin Level Sent. tw5 20:36 Digoxin Sent. tw5 20:36 Basic Metabolic Panel Sent. tw5 20:36 CBC with Diff Sent. tw5 22:20 No provider procedures requiring assistance completed. IV discontinued. vc1 22:31 Primary Nurse role handed off by Alma Fletcher, RN vc1 22:31 Jo Valle, CHLOÉ is Primary Nurse. vc1 Administered Medications: 20:27 Not Given (Patient Refused): Zofran (Ondansetron) 4 mg IVP once; over 2 minutes vc1 20:28 Not Given (Patient Refused): fentaNYL (PF) 25 mcg IVP once; RASS on ADMIN: Combtv4, vc1 Very Agttd3, Agttd2, Rstlss1, AlertClm0, Drwsy-1, Lt Sdtn-2, Mod Sdtn-3, Dp Sdtn-4, UnArsble-5 20:32 Drug: Tylenol 1000 mg Route: PO; vc1 21:30 Follow up: Pain 5/10 Adult; Response: No adverse reaction; Pain is decreased vc1 20:40 Drug: Lasix (furosemide) 40 mg Route: IVP; Site: left wrist; vc1 21:00 Follow up: BP 147 / 73; Pulse 79 bpm; Resp 17 bpm; Pulse Ox 96% RA; Response: No vc1 adverse reaction 22:42 Not Given (Patient Refused): Lidoderm Patch 5 % (700 mg/patch) 1 patches Topical once; vc1 leave on for 12 hours; cover most painful area; may cut into smaller pieces Outcome: 20:55 Discharge ordered by MD. cp 21:57 Discharge ordered by MD. cp 22:30 Discharged to home via wheelchair. vc1 22:30 Condition: good 22:30 Discharge instructions given to patient, Instructed on discharge instructions, follow up and referral plans. medication usage, Demonstrated understanding of instructions, follow-up care, medications, Prescriptions given X 2. 22:31 Patient left the ED. vc1 Signatures: Dispatcher [employer] EDMarcela Wright Corey, PA PA cp Dibbern, Lauren, RN RN ld1 Rossy Herman tw5 Jo Valle RN RN vc1 Alma Fletcher RN RN ag7
[2021-09-15] MEDS ORDERED: LIDOCAINE 4% PATCH ONE (21:12)
[2021-09-15 22:42] VITALS: BP 132/86; TEMP 98; O2SAT 98
--- NOTE | 2021-09-16 13:10 | EKG ---
Test Date: 2021-09-15 Test Time: 19:27:55 Charter Coordinator: OSORIO MEASUREMENT RESULTS: Intervals: Rate: 69 AR: QRSD: 98 QT: 414 QTc: 443 [place]: P: AR: QRS: -14 T: 22 INTERPRETIVE STATEMENTS: Atrial fibrillation Abnormal ECG No previous ECG available for comparison Electronically Signed On 09-16-21 13:08:06 [employer] by Shakir Yung
[2021-09-19] MEDS ORDERED: Ringers Lactate 1,000 ML IV ONE (23:31)
== END 2021-09-15 22:31 | disposition home or self-care (01) ==
LOC: ER 17:50
DX: R51.9 Headache, unspecified (principal); S81.802A Unspecified open wound, left lower leg, initial encounter; I48.91 Unspecified atrial fibrillation; I50.40 Unspecified combined systolic (congestive) and diastolic (congestive) heart failure; I10 Essential (primary) hypertension; M54.2 Cervicalgia; Z79.01 Long term (current) use of anticoagulants; Z88.1 Allergy status to other antibiotic agents; Z88.3 Allergy status to other anti-infective agents
CPT/HCPCS: 93005; 85025; 80048; 36415; 83735; 85610; 80162; 80076; 84484; 83880; 70450; 72125; 71045; 93970; 96374; 99284; J1940; J2405

== ENCOUNTER 2021-10-18 20:15 | Inpatient (IN) | payer MEDICARE ==
--- OUTSIDE RECORDS SUMMARY | 2021-10-18 20:29 | XMS REPORT | Continuity of Care Document ---
:1935 Author Organization [facility] t Address 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 STUDIO Attending Clinician ANGELES Attending Clinician Unavailable Pob, [...] HMO GENERIC 00:00:00 [employer] [place] - [id number] 2019 2020 [place] 00:00:00 00:00:00 (MEDICARE REPLACEMENT/ADVAN TAGE - HMO) [employer] [place] [id number] 2019 2020 PLUS 00:00:00 00:00:00 CLASSIC/VALUE Problems [...] tract tract 00:00: [place] infection infection 00 [facility] Branch Fever in Fever in Disease Active Unive rs adult adult 03-10 ity of 00:00: [place] [facility] Chronic Chronic Disease Active 2019 Univers atrial atrial 4-24 ity of fibrillati fibrillati 00:[place] Essential Essential Disease Active Uni vers hypertensi hypertensi 4-24 it y of on on 00:00: [place] 00 Medical Branch Other Other Disease Active 2019 Univers hyperlipid hyperlipid 4-24 it y of emia emia 00:00: [place] [facility] 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 00 Medica l mellitus) mellitus) Bran ch Bronchitis Bronchitis Disease Active 2019- U nivers 4-24 ity of 00:00: [place] 00 Medical Branch Acute Acute Disease Active [...] ity of acute on acute on 00:00: [place] chronic, chronic, 00 Medica l systolic systolic Branch and and diastolic diastolic Cellulitis Cellulitis Disease Active 2018 U nivers of right of right 2-29 ity of leg leg 00:00: [place] 00 Medical Branch History of History of [...] to Not sure University of SARS-CoV-2 (event) [place] [facility] Alcohol intake 2021-03-23 2021-03-23 Current University of 00:00:00 00:00:00 non-drinker of [facility] alcohol Branch (finding) Tobacco Comment 2021-03-16 2021-03-16 Quit in 1995 Univers ity of 00:00:00 00:00:00 [place] [facility] History [facility] 2019-03-11 2019-03-11 5 University o f Financial 00:00:00 00:00:00 [place] [facility] History [facility] Food 2019-03-11 2019-03-11 1 Univers ity of Worry 00:00:00 00:00:00 [place] [facility] History [facility] Food 2019-03-11 2019-03-11 1 Univers ity of Scarcity 00:00:00 00:00:00 [place] [facility] History [facility] 2019-03-11 2019-03-11 2 University o f Transport Med 00:00:00 00:00:00 [place] Medic al [facility] History [facility]CO 2019-03-11 2019-03-11 2 University o f Transport Non-Med 00:00:00 00:00:00 [place] M edical Branch Cigarettes smoked 2017-11-10 2017-11-10 Univers ity of current (pack per 00:00:00 00:00:00 [facility] ) - Reported Branch Cigarette 2017-11-10 2017-11-10 University of pack-years 00:00:00 00:00:00 [facility] Tobacco use and 2017-11-10 2017-11-10 Never used Universit y of exposure 00:00:00 00:00:00 [facility] Sex [birth year] At [birth year] Universit y of 00:00:00 00:00:00 [facility] Smoking Status Start Date Stop Date [...] 04/06/21 at 1015, SELINA bumetanide 2020- No [id number] 1mg Take 1 Univers 1 mg tablet 03-30 [id number] tablet by ity of 00:00: 04:59 mouth [place] 00 :00 daily for Medical 30 days. Branch bumetanide 2020- No [id number] 1mg Take 1 Univers 1 mg tablet 03-30 [id number] tablet by ity of 00:00: 04:59 mouth [place] 00 :00 daily for Medical 30 days. Branch bumetanide 2020- No [id number] 1mg Take 1 Univers 1 mg tablet 03-30 [id number] tablet by ity of 00:00: 04:59 mouth [place] 00 :00 daily for Medical 30 days. Branch bumetanide 2020- No [id number] 1mg Take 1 Univers 1 mg tablet 03-30 [id number] tablet by ity of 00:00: 04:59 mouth [place] 00 :00 daily for Medical 30 days. Branch bumetanide 2020- No [id number] 1mg Take 1 Univers 1 mg tablet 03-30 [id number] tablet by ity of 00:00: 04:59 mouth [place] 00 :00 daily for Medical 30 days. Branch bumetanide 2020- No [id number] 1mg Take 1 Univers 1 mg tablet 03-30 [id number] tablet by ity of 00:00: 04:59 mouth [...] [place] 00 First [place] Medical on [facility] 03/29/21 at 0900, Until Discontinu ed, Routine bumetanide Yes 1mg 1 mg, Univer s (BUMEX) 03-29 Oral, ity of tablet 1 mg 14:00: [facility], [facility] First dose Medical on [facility] 03/29/21 at 0900, Until Discontinu ed, Routine furosemide 2020- No 40mg Take 40 mg Univers (LASIX) 40 03-29 by mouth ity of mg tablet 12:56: 00:00 daily. [place] 46 :00 [facility] Branch amLODIPine 2020- No 5mg Take 5 mg U nivers 5 mg tablet 03-29 by mouth ity of 12:56: 00:00 daily. [place] 46 :00 [facility] Branch furosemide 2020- No 40mg Take 40 mg Univers (LASIX) 40 03-29 by mouth ity of mg tablet 12:56: 00:00 daily. [place] 46 :00 [facility] Branch amLODIPine 2020- No 5mg Take 5 mg U nivers 5 mg tablet 03-29 by mouth ity of 12:56: 00:00 daily. [place] 46 :00 [facility] Branch albuterol-i 2020- No [id number] 1{puff} Inhale 1 Univers pratropium 03-29 10- [id number] Puff every ity of 20-100 00:00: 04:59 6 (six) [place] mcg/actuati 00 :00 hours for Med ical on inhaler 30 days. Branc h benzonatate 2020- No [id number] 100mg Take 1 Univers 100 mg 9-21 - [id number] capsule by ity of capsule 00:00: 04:59 mouth 3 [place] 00 :00 (three) Medical times Branch daily as needed for Cough for up to 30 days. albuterol-i 2020- No [id number] 1{puff} Inhale 1 Univers pratropium 9-21 - [id number] Puff every ity of 20-100 00:00: 04:59 6 (six) [place] mcg/actuati 00 :00 hours for Med ical on inhaler 30 days. Branc h benzonatate 2020- No [id number] 100mg Take 1 Univers 100 mg -04-29 [id number] capsule by ity of capsule 00:00: 04:59 mouth 3 [place] 00 :00 (three) Medical times Branch daily as needed for Cough for up to 30 days. albuterol-i 2020- No [id number] 1{puff} Inhale 1 Univers pratropium 9-21 - [id number] Puff every ity of 20-100 00:00: 04:59 6 (six) [place] mcg/actuati 00 :00 hours for Med ical on inhaler 30 days. Branc h benzonatate 2020- No [id number] 100mg Take 1 Univers 100 mg -04-29 [id number] capsule by ity of capsule 00:00: 04:59 mouth 3 [place] 00 :00 (three) Medical times Branch daily as needed for Cough for up to 30 days. albuterol-i 2020- No [id number] 1{puff} Inhale 1 Univers pratropium 9-21 - [id number] Puff every ity of 20-100 00:00: 04:59 6 (six) [place] mcg/actuati 00 :00 hours for Med ical on inhaler 30 days. Branc h benzonatate 2020- No [id number] 100mg Take 1 Univers 100 mg 9-21 - [id number] capsule by ity of capsule 00:00: 04:59 mouth 3 [place] 00 :00 (three) Medical times Branch daily as needed for Cough for up to 30 days. albuterol-i 2020- No [id number] 1{puff} Inhale 1 Univers pratropium 03-29 [id number] Puff every ity of 20-100 00:00: 04:59 6 (six) [place] mcg/actuati 00 :00 hours for Med ical on inhaler 30 days. Branc h benzonatate 2020- No [id number] 100mg Take 1 Univers 100 mg 03-29 [id number] capsule by ity of capsule 00:00: 04:59 mouth 3 [place] 00 :00 (three) Medical times Branch daily as needed for Cough for up to 30 days. albuterol-i 2020- No [id number] 1{puff} Inhale 1 Univers pratropium 03-29 [id number] Puff every ity of 20-100 00:00: 04:59 6 (six) [place] mcg/actuati 00 :00 hours for Med ical on inhaler 30 days. Branc h benzonatate 2020- No [id number] 100mg Take 1 Univers 100 mg 03-29 [id number] capsule by ity of capsule 00:00: 04:59 mouth 3 [place] 00 :00 (three) Medical times Branch daily as needed for Cough for up to 30 days. diphenhydrA 2020- No [id number] 25mg Take 1 Univers MINE 25 mg 03-29 [id number] tablet by ity of tablet 00:00: 04:59 mouth [place] 00 :00 every 4 Medical (four) Branch hours as needed for Itching for up to 7 days. diphenhydrA 2020- No [id number] 25mg Take 1 Univers MINE 25 mg 03-29 [id number] tablet by ity of tablet 00:00: 04:59 mouth [place] 00 :00 every 4 Medical (four) Branch hours as needed for Itching for up to 7 days. diphenhydrA 2020- No [id number] 25mg Take 1 Univers MINE 25 mg 03-29 [id number] tablet by ity of tablet 00:00: 04:59 mouth [place] 00 :00 every 4 Medical (four) Branch hours as needed for Itching for up to 7 days. diphenhydrA 2020- No [id number] 25mg Take 1 Univers MINE 25 mg 03-29 [id number] tablet by ity of tablet 00:00: 04:59 mouth [place] 00 :00 every 4 Medical (four) Branch hours as needed for Itching for up to 7 days. fludrocorti 2020- No .2mg 0.2 mg, Un adali sone 03-28 Oral, ONCE ity of (FLORINEF) 16:15: 15:45 NOW, 1 [place] tablet 0.2 00 :00 dose, On Medic al mg [facility] 03/28/21 at 1115, Routine fludrocorti 2020- No .2mg 0.2 mg, Un adali sone 03-28 Oral, ONCE ity of (FLORINEF) 16:15: 15:45 NOW, 1 [place] tablet 0.2 00 :00 dose, On Medic al mg [facility] 03/28/21 at 1115, Routine sodium 2020- No 1g 1 g, Oral, Univ ers chloride 03-28 QID, 4 ity of tablet 1 g 15:30: 12:54 doses, [place] 00 :00 First dose Medical on [facility] 03/28/21 at 1030, Last dose on [facility] 03/28/21 at 1999, Routine sodium 2020- No 1g 1 g, Oral, Univ ers chloride 03-28 QID, 4 ity of tablet 1 g 15:30: 12:54 doses, [place] 00 :00 First dose Medical on [facility] 03/28/21 at 1030, Last dose on [facility] 03/28/21 at 1999, Routine NaCl 0.9% No 500mL at 50 Unive rs (NS) IV 03-27 mL/hr, IV ity of infusion 17:30: 16:47 Infusion, [place] as 500 mL 00 :00 ONCE, 1 Medical dose, On Branch [place] 03/27/21 at 1230, Routine NaCl 0.9% 2020- No 500mL at 50 Unive rs (NS) IV 03-27 09-19 mL/hr, IV ity of infusion 17:30: 16:47 Infusion, [place] as 500 mL 00 :00 ONCE, 1 Medical dose, On [facility] 03/27/21 at 1230, Routine albuterol-i Yes 1{puff} 1 Puff, Univers pratropium 9-17 Inhalation ity of (COMBIVENT 17:00: , Q6H, [place] RESPIMAT) 00 First dose Medi micky 20-100 on [place] mcg/actuati 03/25/21 at on inhaler 1200, 1 Puff Until Discontinu ed, Routine
Is this order for a patient with suspected or confirmed COVID-19 infection? Yes albuterol-i 2020-0 Yes 1{puff} 1 Puff, Univers pratropium 9-17 Inhalation ity of (COMBIVENT 17:00: , Q6H, [place] RESPIMAT) 00 First dose Medi micky 20-100 on [place] mcg/actuati 03/25/21 at on inhaler 1200, 1 Puff Until Discontinu ed, Routine
Is this order for a patient with suspected or confirmed COVID-19 infection? Yes codeine-gua 0 Yes 10mL 10 mL, Univ ers ifenesin -17 Oral, ity of (ROBITUSSIN 15:38: Q6HPRN, [place] AC) 10-100 24 Starting Medic al mg/5 mL on [place] oral 03/25/21 at solution 10 1038, mL Until Discontinu ed, Routine, Cough codeine-gua 2020-0 Yes 10mL 10 mL, Univ ers ifenesin 9-17 Oral, ity of (ROBITUSSIN 15:38: Q6HPRN, [place] AC) 10-100 24 Starting Medic al mg/5 mL on [place] oral 03/25/21 at solution 10 1038, mL [...] 25 12 Starting Medica l mg on [facility] 03/24/21 at 1600, Until Discontinu ed, Routine, Itching diphenhydrA 2020-0 Yes 25mg 25 mg, Univ ers MINE 03-24 Oral, ity of (BENADRYL) 21:00: Q4HPRN, [place] tablet 25 12 Starting Medica l mg on [facility] 03/24/21 at 1600, Until Discontinu ed, Routine, Itching SITagliptin 2020-0 Yes 100mg 100 mg, Un adali (JANUVIA) 03-24 Oral, ity of tablet 100 14:00: DAILY, [place] mg 00 First dose Medical on [facility] 03/24/21 at 0900, Until Discontinu ed, Routine omeprazole 2020-0 Yes 40mg 40 mg, Unive rs (PRILOSEC) 03-24 Oral, ity of capsule 40 14:00: DAILY, [place] mg 00 First dose Medical on [facility] 03/24/21 at 0900, Until Discontinu ed ascorbic 2020-0 Yes 500mg 500 mg, Unive rs acid 03-24 Oral, ity of (vitamin C) 14:00: DAILY, [place] (VITAMIN C) 00 First dose Me dical tablet 500 on [facility] mg 03/24/21 at 0900, Until Discontinu ed, Routine SITagliptin 2020-0 Yes 100mg 100 mg, Un adali (JANUVIA) 03-24 Oral, ity of tablet 100 14:00: DAILY, [place] mg 00 First dose Medical on [facility] 03/24/21 at 0900, Until Discontinu ed, Routine omeprazole 2020-0 Yes 40mg 40 mg, Unive rs (PRILOSEC) 9-16 Oral, ity of capsule 40 14:00: DAILY, [place] mg 00 First dose Medical on [facility] 03/24/21 at 0900, Until Discontinu ed ascorbic 2020-0 Yes 500mg 500 mg, Unive rs acid 03-24 Oral, ity of (vitamin C) 14:00: DAILY, [place] (VITAMIN C) 00 First dose Me dical tablet [address] [facility] 03/24/21 at 0900, Until Discontinu ed, Routine amLODIPine 2020- No 5mg 5 mg, Unive rs (NORVASC) 03-24 Oral, ity of tablet 5 mg 14:00: 15:14 DAILY, [place] 00 :12 First dose Medical on [facility] 03/24/21 at 0900, Until Discontinu ed, Routine amLODIPine 2020- No 5mg 5 mg, Unive rs (NORVASC) 03-24 Oral, ity of tablet 5 mg 14:00: 15:14 DAILY, [place] 00 :12 First dose Medical on [facility] 03/24/21 at 0900, Until Discontinu ed, Routine gabapentin 0 Yes 300mg 300 mg, Uni vers (NEURONTIN) 9-16 Oral, QHS, it y of capsule 300 02:00: First dose [place] mg 00 on [facility] 03/23/21 at Branch 2100, Until Discontinu ed, Routine atorvastati 0 Yes 40mg 40 mg, Univ ers n (LIPITOR) 9-16 Oral, QHS, it y of tablet 40 02:00: First dose [place] mg 00 on [facility] 03/23/21 at Branch 2100, Until Discontinu ed, Routine gabapentin 2020-0 Yes 300mg 300 mg, Uni vers (NEURONTIN) 9-16 Oral, QHS, it y of capsule 300 02:00: First dose [place] mg 00 on [facility] 03/23/21 at Branch 2100, Until Discontinu ed, Routine atorvastati 2020-0 Yes 40mg 40 mg, Univ ers n (LIPITOR) 9-16 Oral, QHS, it y of tablet 40 02:00: First dose [place] mg 00 on [facility] 03/23/21 at Branch 2100, Until Discontinu ed, Routine pramipexole 2021-0 Yes 1mg 1 mg, Unive rs (MIRAPEX) 9-16 Oral, TID, ity of tablet 1 mg 01:00: First dose on [facility] 03/23/21 at [place] [address], Until Discontinu ed
Facu lty member approving Restricted medication : JAD GAVIN apixaban 2021-0 Yes 5mg 5 mg, Univers (ELIQUIS) 9-16 Oral, BID, ity of tablet 5 mg 01:00: First dose on [facility] 03/23/21 at [place] 2000, Until Discontinu ed, Routine pramipexole 1-0 Yes 1mg 1 mg, Unive rs (MIRAPEX) 9-16 Oral, TID, ity of tablet 1 mg 01:00: First dose on Sun03/23/21 at [place] 1999, Until Discontinu ed
Facu lty member approving Restricted medication : JAD GAVIN apixaban 1-0 Yes 5mg 5 mg, Univers (ELIQUIS) 9-16 Oral, BID, ity of tablet 5 mg 01:00: First dose on [facility] 03/23/21 at [place] 1999, Until Discontinu ed, Routine benzonatate 2021-0 [...] mg 00 First dose Medical on [place] 03/23/21 at 1700, Until Discontinu ed, Routine [...] has mental status changes. iopamidol 2020- No [id number] 100mL 100 mL, Univers (ISOVUE 03-23 [id number] Intravenou it y of 370-500 mL) 17:00: 15:48 s, ONCE, 1 [place] injection 00 :00 dose, On Medica l 100 mL Wed Branch 03/23/21 at 1200, Routine iopamidol 2020- No [id number] 100mL 100 mL, Univers (ISOVUE 03-23 [id number] Intravenou it y of 370-500 mL) 17:00: [...] ity o f mg tablet 00:03: daily. [place] [address] Medical Branch amLODIPine 0 Yes 5mg Take 5 mg Un adali 5 mg tablet 9-10 by mouth ity of 00:03: daily. [place] [address] Medical Branch ascorbic 0 Yes 500mg Take [...] ity o f mg tablet 00:03: daily. [place] [address] Medical Branch amLODIPine 2020-0 Yes 5mg Take 5 mg Un adali 5 mg tablet 9-10 by mouth ity of 00:03: daily. [place] [address] Medical Branch ascorbic 2021-0 Yes 500mg Take 500 Univ ers acid, 9-10 mg by ity of vitamin C, 00:03: mouth [place] (VITAMIN C) 37 daily. Medica l 500 mg Branch tablet insulin 0 Yes 16U inject 16 Unive rs degludec 9-10 Units ity of (TRESIBA 00:03: [facility] FLEXTOUCH 37 skin. Medical U-100) 100 Branch unit/mL (3 mL) InPn SITagliptin Yes 100mg Take 100 U nivers (JANUVIA) 9-10 mg by ity of 100 mg 00:03: mouth [place] tablet 37 daily. Medical Branch furosemide Yes 40mg Take 40 mg U nivers (LASIX) 40 9-10 by mouth ity o f mg tablet 00:03: daily. [place] [address] Medical Branch amLODIPine Yes 5mg Take 5 mg Un adali 5 mg tablet 9-10 by mouth ity of 00:03: daily. [place] [address] Medical Branch ascorbic Yes 500mg Take 500 Univ ers acid, 9-10 mg by ity of vitamin C, 00:03: mouth [place] (VITAMIN C) 37 daily. Medica l 500 mg Branch tablet insulin Yes 16U inject 16 Unive rs degludec 9-10 Units ity of (TRESIBA 00:03: [facility] FLEXTOUCH 37 skin. Medical U-100) 100 Branch unit/mL (3 mL) InPn SITagliptin Yes 100mg Take 100 U nivers (JANUVIA) 9-10 mg by ity of 100 mg 00:03: mouth [place] tablet 37 daily. Medical Branch furosemide Yes 40mg Take 40 mg U nivers (LASIX) 40 9-10 by mouth ity o f mg tablet 00:03: daily. [place] [address] Medical Branch amLODIPine 0 Yes 5mg Take 5 mg Un adali 5 mg tablet 9-10 by mouth ity of 00:03: daily. [place] [address] Medical Branch sulfur 202- No [id number] 5mL 5 mL, Univ ers hexafluorid 03-17 Intravenou i ty of e microsphr 21:45: 19:50 s, ONCE, 1 [place] (LUMASON) 00 :00 dose, [place] Medic al injection 5 03/17/21 at [facility] mL 1645, Routine
modular set crew member approving Restricted medication : ZEKE ARELLANO sulfur 2020- No [id number] 5mL 5 mL, [facility] ers hexafluorid 03-17 Intravenou i ty of e microsphr 21:45: 19:50 s, ONCE, 1 [place] (LUMASON) 00 :00 dose, [place] Medic al injection 5 03/17/21 at [facility] mL 1645, Routine
modular set crew member approving Restricted medication : ZEKE ARELLANO remdesivir 2020- No 100mg 100 mg, IV Univers 100 mg in 03-17 Infusion, ity of NaCl 0.9% 21:00: 20:59 DAILY AT [facility] as (NS) 100 mL 00 :00 1600, [...] of NaCl 0.9% 21:00: 20:59 DAILY AT [facility] as (NS) 100 mL 00 :00 1600, [...] [place] mg 00 First dose Medical on [facility] Branch 03/17/21 at 0900, Until Discontinu ed, Routine amLODIPine 0 Yes 5mg 5 mg, Univer s (NORVASC) 03-17 Oral, ity of tablet 5 mg 14:00: DAILY, [place] 00 First dose Medical on [facility] Branch 03/17/21 at 0900, Until Discontinu ed, Routine omeprazole Yes 40mg 40 mg, Unive rs (PRILOSEC) 03-17 Oral, ity of capsule 40 14:00: DAILY, [place] mg 00 First dose Medical on [facility] Branch 03/17/21 at 0900, Until Discontinu ed, Routine amLODIPine Yes 5mg 5 mg, Univer s (NORVASC) 03-17 Oral, ity of tablet 5 mg 14:00: DAILY, [place] 00 First dose Medical on [facility] Branch 03/17/21 at 0900, Until Discontinu ed, [...] 01:00: First dose [place] 00 on [facility] 03/16/21 at Branch 2000, Until Discontinu ed, [...] Until Discontinu ed, Routine benzonatate 2020- No [id number] 100mg Take 1 Univers 100 mg 9-09 10-10 capsule by ity of capsule 00:00: 04:59 mouth [place] 00 :00 every 6 Medical (six) Branch hours for 30 days. benzonatate 2020- No [id number] 100mg Take 1 Univers 100 mg 9-09 10-10 capsule by ity of capsule 00:00: 04:59 mouth [place] 00 :00 every 6 Medical (six) Branch hours for 30 days. benzonatate 2020- No [id number] 100mg Take 1 Univers 100 mg 9-09 10-10 capsule by ity of capsule 00:00: 04:59 mouth [place] 00 :00 every 6 Medical (six) Branch hours for 30 days. benzonatate 2020- No [id number] 100mg Take 1 Univers 100 mg 9-09 10-10 capsule by ity of capsule 00:00: 04:59 mouth [place] 00 :00 every 6 Medical (six) Branch hours for 30 days. benzonatate 2020- No [id number] 100mg Take 1 Univers 100 mg 9-09 10-10 capsule by ity of capsule 00:00: 04:59 mouth [place] 00 :00 every 6 Medical (six) Branch hours for 30 days. benzonatate 2020-0 2020- No [id number] 100mg Take 1 Univers 100 mg 9-09 10-10 capsule by ity of capsule 00:00: 04:59 mouth [place] 00 :00 every 6 Medical (six) Branch hours for 30 days. benzonatate 2020-0 2021- No [id number] 100mg Take 1 Univers 100 mg 9-09 10-10 capsule by ity of capsule 00:00: 04:59 mouth [place] 00 :00 every 6 Medical (six) Branch hours for 30 days. benzonatate 2020-0 2020- No [id number] 100mg Take 1 Univers 100 mg 9-09 10-10 capsule by ity of capsule 00:00: 04:59 mouth [place] 00 :00 every 6 Medical (six) Branch hours for 30 days. benzonatate 2020-2020- No [id number] 100mg Take 1 Univers 100 mg 9- [...] IV ity of (D50W) 23:51: Push, PRN, [place] injection 06 Starting Medica l 25 mL Sun03/16/21 Branch at 1851, Until Discontinu ed, SELINA, Blood Glucose < or = 70 mg/dL and patient is unable to swallow or has mental status changes. ipratropium Yes 2{puff} 2 Puff, Univers (ATROVENT 03-16 Inhalation ity of HFA) 23:15: , Q6H, [place] inhaler 2 00 First dose Medi micky Puff on Sun Branch 03/16/21 at 1815, Until Discontinu ed, Routine
Is this order for a patient with suspected or confirmed COVID-19 infection? Yes albuterol Yes 2{puff} 2 Puff, Un adali (VENTOLIN) 03-16 Inhalation ity of inhaler 2 23:15: , Q6H, [place] Puff 00 First dose Medical on [place] [facility] 03/16/21 at 1815, Until Discontinu ed, Routine ipratropium Yes 2{puff} 2 Puff, Univers (ATROVENT 03-16 Inhalation ity of HFA) 23:15: , Q6H, [place] inhaler 2 00 First dose Medi micky Puff on Sun Branch 03/16/21 at 1815, Until Discontinu ed, Routine
Is this order for a patient with suspected or confirmed COVID-19 infection? Yes albuterol Yes 2{puff} 2 Puff, Un adali (VENTOLIN) 03-16 Inhalation ity of inhaler 2 23:15: , Q6H, [place] Puff 00 First dose Medical on Sun Branch 03/16/21 at 1815, Until Discontinu ed, Routine benzonatate 2020- No 100mg 100 mg, U nivers (TESSALON 03-16 09-09 Oral, ity of PERLES) 23:13: 16:35 Q6HPRN, [place] capsule 100 02 :04 Starting Medi micky [...] 03-16 Oral, ity of (TYLENOL) 23:08: Q6HPRN, [place] tablet 650 16 Starting Medic al mg Sun03/16/21 Branch at 1808, Until Discontinu ed, Routine, Pain (scale 1-3) acetaminoph 0 Yes 650mg 650 mg, Un adali en 03-16 Oral, ity of (TYLENOL) 23:08: Q6HPRN, [place] tablet 650 16 Starting Medic al mg [...] Units ity of (TRESIBA 20:23: [facility] the [facility] FLEXTOUCH 02 skin. Medical U-100) 100 Branch unit/mL (3 mL) InPn ascorbic 2018-07 Yes 500mg Take 500 Univ ers acid, 2-23 mg by ity of vitamin C, 20:23: mouth [place] (VITAMIN C) 02 daily. Medica l 500 mg Branch tablet insulin 2018-07 Yes 16U inject 16 Unive rs degludec 2-23 Units ity of (TRESIBA 20:23: [facility] the [facility] FLEXTOUCH 02 skin. Medical U-100) 100 [...] Units ity of (TRESIBA 20:23: under the [facility] FLEXTOUCH 02 skin. Medical U-100) 100 Branch unit/mL (3 mL) InPn insulin 2018-07 Yes 16U inject 16 Unive rs degludec 2-23 Units ity of (TRESIBA 20:23: under the [facility] FLEXTOUCH 02 skin. Medical U-100) 100 [...] mg Branch tablet traMADol 50 2018-07 Yes [id number] 50mg Take 1 Univers mg tablet 2-23 tablet by ity o f 00:00: mouth [place] 00 every 6 Medical (six) Branch hours as needed for Pain (scale 4-6) or Pain (scale 7-10). traMADol 50 2018-07 Yes [id number] 50mg Take 1 Univers mg tablet 2-23 tablet by ity o f 00:00: mouth [place] 00 every 6 Medical (six) Branch hours as needed for Pain (scale 4-6) or Pain (scale 7-10). triammera 2018-07 Yes [id number] Apply to [facility] [place] [facility] 2-23 area(s) 2 ity of acetonide 00:00: (two) [place] 0.1 % cream 00 times Medical daily. Branch traMADol 50 2018-07 Yes [id number] 50mg Take 1 Univers mg tablet 2-23 tablet by ity o f 00:00: mouth [place] 00 every 6 Medical (six) Branch hours as needed for Pain (scale 4-6) or Pain (scale 7-10). traMADol 50 2018-07 Yes [id number] 50mg Take 1 Univers mg tablet 2-23 tablet by ity o f 00:00: mouth [place] 00 every 6 Medical (six) Branch hours as needed for Pain (scale 4-6) or Pain (scale 7-10). traMADol 50 2018-07 Yes [id number] 50mg Take 1 Univers mg tablet 2-23 tablet by ity o f 00:00: mouth [place] 00 every 6 Medical (six) Branch hours as needed for Pain (scale 4-6) or Pain (scale 7-10). triamcinolo 2018-07 Yes [id number] Apply to [facility] ne 2-23 area(s) 2 ity of acetonide 00:00: (two) [place] 0.1 % cream 00 times Medical daily. Branch traMADol 50 2018-07 Yes [id number] 50mg Take 1 [facility] mg tablet 2-23 tablet by ity o f 00:00: mouth [place] 00 every 6 Medical (six) Branch hours as needed for Pain (scale 4-6) or Pain (scale 7-10). traMADol 50 2018-07 Yes [id number] 50mg Take 1 [facility] mg tablet 2-23 tablet by ity o f 00:00: mouth [place] 00 every 6 Medical (six) Branch hours as needed for Pain (scale 4-6) or Pain (scale 7-10). triamcinolo 2018-07 Yes [id number] Apply to [facility] ne 2-23 area(s) 2 ity of acetonide 00:00: (two) [place] 0.1 % cream 00 times Medical daily. Branch triamcinolo 2018-07 Yes [id number] Apply to [facility] [place] [facility] 2-23 area(s) 2 ity of acetonide 00:00: (two) [place] 0.1 % cream 00 times Medical daily. Branch traMADol 50 2018-07 Yes [id number] 50mg Take 1 [facility] mg tablet 2-23 tablet by ity o f 00:00: mouth [place] 00 every 6 Medical (six) Branch hours as needed for Pain (scale 4-6) or Pain (scale 7-10). triamcinolo 2018-07 Yes [id number] Apply to [facility] [place] [facility] 2-23 area(s) 2 ity of acetonide 00:00: (two) [place] 0.1 % cream 00 times Medical daily. Branch traMADol 50 2018-07 Yes [id number] 50mg Take 1 [facility] mg tablet 2-23 tablet by ity o f 00:00: mouth [place] 00 every 6 Medical (six) Branch hours as needed for Pain (scale 4-6) or Pain (scale 7-10). triamcinolo 2018-07 Yes [id number] Apply to [facility] ne 2-23 area(s) 2 ity of acetonide 00:00: (two) [place] 0.1 % cream 00 times Medical daily. Branch traMADol 50 2018-07 Yes [id number] 50mg Take 1 [facility] mg tablet 2-23 tablet by ity o f 00:00: mouth [place] 00 every 6 Medical (six) Branch hours as needed for Pain (scale 4-6) or Pain (scale 7-10). triamcinolo 2018-07 Yes [id number] Apply to [facility] ne 2-23 area(s) 2 ity of acetonide 00:00: (two) [place] 0.1 % cream 00 times Medical daily. Branch traMADol 50 2018-07 Yes [id number] 50mg Take 1 [facility] mg tablet 2-23 tablet by ity o f 00:00: mouth [place] 00 every 6 Medical (six) Branch hours as needed for Pain (scale 4-6) or Pain (scale 7-10). triamcinolo 2018-07 Yes [id number] Apply to [facility] [place] [facility] 2-23 area(s) 2 ity of acetonide 00:00: (two) [place] 0.1 % cream 00 times Medical daily. Branch traMADol 50 2018-07 Yes [id number] 50mg Take 1 [facility] mg tablet 2-23 tablet by ity o f 00:00: mouth [place] 00 every 6 Medical (six) Branch hours as needed for Pain (scale 4-6) or Pain (scale 7-10). triamcinolo 2018-07 Yes [id number] Apply to [facility] [place] [facility] 2-23 area(s) 2 ity of acetonide 00:00: (two) [place] 0.1 % cream 00 times Medical daily. Branch traMADol 50 2018-07 Yes [id number] 50mg Take 1 [facility] mg tablet 2-23 tablet by ity o f 00:00: mouth [place] 00 every 6 Medical (six) Branch hours as needed for Pain (scale 4-6) or Pain (scale 7-10). triamcinolo 2018-07 Yes [id number] Apply to [facility] ne 2-23 area(s) 2 ity of acetonide 00:00: (two) [place] 0.1 % cream 00 times Medical daily. Branch traMADol 50 2018-07 Yes [id number] 50mg Take 1 [facility] mg tablet 2-23 tablet by ity o f 00:00: mouth [place] 00 every 6 Medical (six) Branch hours as needed for Pain (scale 4-6) or Pain (scale 7-10). triamcinolo 2018-07 Yes [id number] Apply to [facility] ne 2-23 area(s) 2 ity of acetonide 00:00: (two) [place] 0.1 % cream 00 times Medical daily. Branch traMADol 50 2018-07 Yes [id number] 50mg Take 1 [facility] mg tablet 2-23 tablet by ity o f 00:00: mouth [place] 00 every 6 Medical (six) Branch hours as needed for Pain (scale 4-6) or Pain (scale 7-10). triamcinolo 2018-07 Yes [id number] Apply to [facility] ne 2-23 area(s) 2 ity of acetonide 00:00: (two) [place] 0.1 % cream 00 times Medical daily. Branch traMADol 50 2018-07 Yes [id number] 50mg Take 1 [facility] mg tablet 2-23 tablet by ity o f 00:00: mouth [place] 00 every 6 Medical (six) Branch hours as needed for Pain (scale 4-6) or Pain (scale 7-10). triamcinolo 2018-07 Yes [id number] Apply to [facility] ne 2-23 area(s) 2 ity of acetonide 00:00: (two) [place] 0.1 % cream 00 times Medical daily. Branch traMADol 50 2018-07 Yes [id number] 50mg Take 1 [facility] mg tablet 2-23 tablet by ity o f 00:00: mouth [place] 00 every 6 Medical (six) Branch hours as needed for Pain (scale 4-6) or Pain (scale 7-10). traMADol 50 2018-07 Yes [id number] 50mg Take 1 [facility] mg tablet 2-23 tablet by ity o f 00:00: mouth [place] 00 every 6 Medical (six) Branch hours as needed for Pain (scale 4-6) or Pain (scale 7-10). triamcinolo 2018-07 Yes [id number] Apply to [facility] ne 2-23 area(s) 2 ity of acetonide 00:00: (two) [place] 0.1 % cream 00 times Medical daily. Branch triamcinolo 2018-07 Yes [id number] Apply to [facility] ne 2-23 area(s) 2 ity of acetonide 00:00: (two) [place] 0.1 % cream 00 times Medical daily. Branch traMADol 50 2018-07 Yes [id number] 50mg Take 1 [facility] mg tablet 2-23 tablet by ity o f 00:00: mouth [place] 00 every 6 Medical (six) Branch hours as needed for Pain (scale 4-6) or Pain (scale 7-10). [facility] 2018-07 Yes [id number] Apply to [facility] [place] [facility] - area(s) 2 ity of acetonide 00:00: (two) [place] 0.1 % cream 00 times Medical daily. Branch traMADol 50 2018-07 Yes [id number] 50mg Take 1 [facility] mg tablet 2-23 tablet by ity o f 00:00: mouth [place] 00 every 6 Medical (six) Branch hours as needed for Pain (scale 4-6) or Pain (scale 7-10). [facility] Yes [id number] Apply to [facility] [place] [facility] -23 area(s) 2 ity of acetonide 00:00: (two) [place] 0.1 % cream 00 times Medical daily. Branch traMADol 50 2018-07 Yes [id number] 50mg Take 1 [facility] mg tablet 2-23 tablet by ity o f 00:00: mouth [place] 00 every 6 Medical (six) Branch hours as needed for Pain (scale 4-6) or Pain (scale 7-10). traMADol 50 2018-07- No [id number] 50mg Take 1 [facility] mg tablet 08-31-15 tablet by ity of 00:00: 00:00 mouth [place] 00 :00 every 6 Medical (six) Branch hours as needed for Pain (scale 4-6) or Pain (scale 7-10). traMADol 50 2018-07- No [id number] 50mg Take 1 [facility] mg tablet 08-31-15 tablet by ity of 00:00: 00:00 mouth [place] 00 :00 every 6 Medical (six) Branch hours as needed for Pain (scale 4-6) or Pain (scale 7-10). triamcinolo 2018-07- No [id number] Apply to [facility] [place] [facility] -03-16 area(s) 2 ity of acetonide 00:00: 00:00 (two) [place] 0.1 % cream 00 :00 times Medical daily. Branch triamcinolo 2018-07- No [id number] Apply to [facility] [place] [facility] -03-16 area(s) 2 ity of acetonide 00:00: 00:00 (two) [place] 0.1 % cream 00 :00 times Medical daily. Branch CALCIUM 2019-0 Yes 1{tbl} Take 1 [facility]iver s CARBONATE/V 9-10 tablet by ity of ITAMIN D3 22:55: mouth. [place] (CALCIUM 56 Medical 600 + D,3, Branch ORAL) ascorbic 2019- Yes 500mg Take 500 Univ ers acid, 9-10 mg by ity of vitamin C, 22:55: mouth [place] (VITAMIN C) 56 daily. Medica l 500 mg Branch tablet CALCIUM 2019-0 Yes 1{tbl} Take 1 [facility]iver s CARBONATE/V 9-10 tablet by ity of ITAMIN D3 22:55: mouth. [place] (CALCIUM 56 Medical 600 + D,3, Branch [...] :00 daily. Medical Branch omeprazole 2018-0 Yes [id number] 40mg Take 1 [facility] 40 mg 9-10 9100 capsule by ity of capsule 00:00: mouth [place] 00 daily. Medical Branch carvedilol Yes [id number] 25mg Take 1 [facility] 25 mg 9-10 9103 tablet by ity of tablet 00:00: mouth 2 00 (two) Medical times Branch daily with meals. digoxin 125 2018- Yes [id number] 125ug Take 1 [facility] mcg tablet 9-10 9103 tablet by ity of 00:00: mouth [place] 00 daily. Medical Branch rOPINIRole 2018- Yes [id number] 2mg Take 1 [facility] 2 mg tablet 9-10 9103 tablet by ity of 00:00: mouth 2 [place] 00 (two) Medical times Branch daily. apixaban 2019-0 Yes [id number] 5mg Take 1 [facility] (ELIQUIS) 5 9-10 9103 tablet by ity of mg tablet 00:00: mouth 2 (two) Medical times Branch daily. atorvastati 2019-0 Yes [id number] 40mg Take 1 [facility] n (LIPITOR) 9-10 9103 tablet by ity of 40 mg 00:00: mouth at [place] tablet 00 bedtime. Medical Branch gabapentin 2019-0 Yes [id number] 300mg Take 1 [facility] 300 mg 9-10 9100 capsule by ity of capsule 00:00: mouth 2 (two) Medical times Branch daily. omeprazole 2019-0 Yes [id number] 40mg Take 1 [facility] 40 mg 9-10 9100 capsule by ity of capsule 00:00: mouth [place] 00 daily. Medical Branch carvedilol 2018-0 Yes [id number] 25mg Take 1 [facility] 25 mg 9-10 9103 tablet by ity of tablet 00:00: mouth (two) Medical times Branch daily with meals. digoxin 125 2019-0 Yes [id number] 125ug Take 1 [facility] mcg tablet 9-10 9103 tablet by ity of 00:00: mouth 00 daily. Medical Branch rOPINIRole 2019-0 Yes [id number] 2mg Take 1 [facility] 2 mg tablet 9-10 9103 tablet by ity of 00:00: mouth 2 (two) Medical times Branch daily. apixaban 2019-0 Yes [id number] 5mg Take 1 [facility] (ELIQUIS) 5 9-10 9103 tablet by ity of mg tablet 00:00: mouth 2 (two) Medical times Branch daily. atorvastati 2019-0 Yes [id number] 40mg Take 1 [facility] n (LIPITOR) 9-10 9103 tablet by ity of 40 mg 00:00: mouth at [place] tablet 00 bedtime. Medical Branch gabapentin 2019-0 Yes [id number] 300mg Take 1 [facility] 300 mg 9-10 9100 capsule by ity of capsule 00:00: mouth 2 (two) Medical times Branch daily. omeprazole 2019-0 Yes [id number] 40mg Take 1 [facility] 40 mg 9-10 9100 capsule by ity of capsule 00:00: mouth [place] 00 daily. Medical Branch carvedilol 2019-0 Yes [id number] 25mg Take 1 [facility] 25 mg 9-10 9103 tablet by ity of tablet 00:00: mouth 2 (two) Medical times Branch daily with meals. digoxin 125 2019-0 Yes [id number] 125ug Take 1 [facility] mcg tablet 9-10 9103 tablet by ity of 00:00: mouth [place] 00 daily. Medical Branch rOPINIRole 2019-0 Yes [id number] 2mg Take 1 [facility] 2 mg tablet 9-10 9103 tablet by ity of 00:00: mouth 2 (two) Medical times Branch daily. apixaban 2019-0 Yes [id number] 5mg Take 1 [facility] (ELIQUIS) 5 9-10 9103 tablet by ity of mg tablet 00:00: mouth 2 (two) Medical times Branch daily. atorvastati 2018- Yes [id number] 40mg Take 1 [facility] n (LIPITOR) 9-10 9103 tablet by ity of 40 mg 00:00: mouth at [place] tablet 00 bedtime. Medical Branch gabapentin 2019-0 Yes [id number] 300mg Take 1 [facility] 300 mg 9-10 9100 capsule by ity of capsule 00:00: mouth (two) Medical times Branch daily. omeprazole 2019-0 Yes [id number] 40mg Take 1 [facility] 40 mg 9-10 9100 capsule by ity of capsule 00:00: mouth [place] 00 daily. Medical Branch carvedilol 2018-0 Yes [id number] 25mg Take 1 [facility] 25 mg 9-10 9103 tablet by ity of tablet 00:00: mouth 2 (two) Medical times Branch daily with meals. digoxin 125 2018-0 Yes [id number] 125ug Take 1 [facility] mcg tablet 9-10 9103 tablet by ity of 00:00: mouth [place] 00 daily. Medical Branch rOPINIRole 2019-0 Yes [id number] 2mg Take 1 [facility] 2 mg tablet 9-10 9103 tablet by ity of 00:00: mouth 2 (two) Medical times Branch daily. apixaban 2019-0 Yes [id number] 5mg Take 1 [facility] (ELIQUIS) 5 9-10 9103 tablet by ity of mg tablet 00:00: mouth 2 (two) Medical times Branch daily. atorvastati 2018-0 Yes [id number] 40mg Take 1 [facility] n (LIPITOR) 9-10 9103 tablet by ity of 40 mg 00:00: mouth at [place] tablet 00 bedtime. Medical Branch gabapentin 2019-0 Yes [id number] 300mg Take 1 [facility] 300 mg 9-10 9100 capsule by ity of capsule 00:00: mouth 2 [place] 00 (two) Medical times Branch daily. omeprazole 2019-0 Yes [id number] 40mg Take 1 [facility] 40 mg 9-10 9100 capsule by ity of capsule 00:00: mouth [place] 00 daily. Medical Branch carvedilol 2018-0 Yes [id number] 25mg Take 1 [facility] 25 mg 9-10 9103 tablet by ity of tablet 00:00: mouth 2 (two) Medical times Branch daily with meals. digoxin 125 2018-0 Yes [id number] 125ug Take 1 [facility] mcg tablet 9-10 9103 tablet by ity of 00:00: mouth [place] 00 daily. Medical Branch rOPINIRole 2018-0 Yes [id number] 2mg Take 1 [facility] 2 mg tablet 9-10 9103 tablet by ity of 00:00: mouth 2 00 (two) Medical times Branch daily. apixaban 2018-0 Yes [id number] 5mg Take 1 [facility] (ELIQUIS) 5 9-10 9103 tablet by ity of mg tablet 00:00: mouth 2 00 (two) Medical times Branch daily. atorvastati 2018-0 Yes [id number] 40mg Take 1 [facility] n (LIPITOR) 9-10 9103 tablet by ity of 40 mg 00:00: mouth at [place] tablet 00 bedtime. Medical Branch gabapentin 2018-0 Yes [id number] 300mg Take 1 [facility] 300 mg 9-10 9100 capsule by ity of capsule 00:00: mouth 2 00 (two) Medical times Branch daily. omeprazole 2019-0 Yes [id number] 40mg Take 1 [facility] 40 mg 9-10 9100 capsule by ity of capsule 00:00: mouth [place] 00 daily. Medical Branch carvedilol 2018-0 Yes [id number] 25mg Take 1 [facility] 25 mg 9-10 9103 tablet by ity of tablet 00:00: mouth 2 00 (two) Medical times Branch daily with meals. digoxin 125 2018-0 Yes [id number] 125ug Take 1 [facility] mcg tablet 9-10 9103 tablet by ity of 00:00: mouth [place] 00 daily. Medical Branch rOPINIRole 2019- Yes [id number] 2mg Take 1 [facility] 2 mg tablet 9-10 9103 tablet by ity of 00:00: mouth 2 [place] 00 (two) Medical times Branch daily. apixaban 2019- Yes [id number] 5mg Take 1 [facility] (ELIQUIS) 5 9-10 9103 tablet by ity of mg tablet 00:00: mouth 2 [place] 00 (two) Medical times Branch daily. atorvastati 2019- Yes [id number] 40mg Take 1 [facility] n (LIPITOR) 9-10 9103 tablet by ity of 40 mg 00:00: mouth at [place] tablet 00 bedtime. Medical Branch gabapentin 2018- Yes [id number] 300mg Take 1 [facility] 300 mg 9-10 9100 capsule by ity of capsule 00:00: mouth 2 [place] 00 (two) Medical times Branch daily. omeprazole 2018-0 Yes [id number] 40mg Take 1 [facility] 40 mg 9-10 9100 capsule by ity of capsule 00:00: mouth [place] 00 daily. Medical Branch carvedilol Yes [id number] 25mg Take 1 [facility] 25 mg 9-10 9103 tablet by ity of tablet 00:00: mouth 2 [place] 00 (two) Medical times Branch daily with meals. digoxin 125 2018- Yes [id number] 125ug Take 1 [facility] mcg tablet 9-10 9103 tablet by ity of 00:00: mouth [place] 00 daily. Medical Branch furosemide 2018- Yes [id number] 40mg Take 1 [facility] 40 mg 9-10 9103 tablet by ity of tablet 00:00: mouth [place] 00 daily. Medical Branch insulin 2018- Yes [id number] 10U inject 10 [facility] glargine 9-10 9103 Units ity of 100 unit/mL 00:00: under the [place] injection 00 skin every [facility] 12 Branch (twelve) hours. rOPINIRole 2018-0 Yes [id number] 2mg Take 1 [facility] 2 mg tablet 9-10 9103 tablet by ity of 00:00: mouth 2 [place] 00 (two) Medical times Branch daily. apixaban 2018- Yes [id number] 5mg Take 1 [facility] (ELIQUIS) 5 9-10 9103 tablet by ity of mg tablet 00:00: mouth 2 00 (two) Medical times Branch daily. atorvastati 2019-0 Yes [id number] 40mg Take 1 [facility] n (LIPITOR) 9-10 9103 tablet by ity of 40 mg 00:00: mouth at [place] tablet 00 bedtime. Medical Branch gabapentin 2019-0 Yes [id number] 300mg Take 1 [facility] 300 mg 9-10 9100 capsule by ity of capsule 00:00: mouth 2 (two) Medical times Branch daily. omeprazole 2019-0 Yes [id number] 40mg Take 1 [facility] 40 mg 9-10 9100 capsule by ity of capsule 00:00: mouth [place] 00 daily. Medical Branch carvedilol 2018- Yes [id number] 25mg Take 1 [facility] 25 mg 9-10 9103 tablet by ity of tablet 00:00: mouth 2 (two) Medical times Branch daily with meals. apixaban 2018- Yes [id number] 5mg Take 1 [facility] (ELIQUIS) 5 9-10 9103 tablet by ity of mg tablet 00:00: mouth 2 (two) Medical times Branch daily. atorvastati 2018-0 Yes [id number] 40mg Take 1 [facility] n (LIPITOR) 9-10 9103 tablet by ity of 40 mg 00:00: mouth at [place] tablet 00 bedtime. Medical Branch digoxin 125 2018-0 Yes [id number] 125ug Take 1 [facility] mcg tablet 9-10 9103 tablet by ity of 00:00: mouth [place] 00 daily. Medical Branch gabapentin 2018-0 Yes [id number] 300mg Take 1 [facility] 300 mg 9-10 9100 capsule by ity of capsule 00:00: mouth 2 (two) Medical times Branch daily. omeprazole 2019-0 Yes [id number] 40mg Take 1 [facility] 40 mg 9-10 9100 capsule by ity of capsule 00:00: mouth [place] 00 daily. Medical Branch carvedilol 2018-0 Yes [id number] 25mg Take 1 [facility] 25 mg 9-10 9103 tablet by ity of tablet 00:00: mouth 2 (two) Medical times Branch daily with meals. digoxin 125 2018- Yes [id number] 125ug Take 1 [facility] mcg tablet 9-10 9103 tablet by ity of 00:00: mouth [place] 00 daily. Medical Branch furosemide 2019-0 Yes [id number] 40mg Take 1 [facility] 40 mg 9-10 9103 tablet by ity of tablet 00:00: mouth [place] 00 daily. Medical Branch insulin 2019-0 Yes [id number] 10U inject 10 [facility] glargine 9-10 9103 Units ity of 100 unit/mL 00:00: under the [place] injection 00 skin every [facility] 12 Branch (twelve) hours. rOPINIRole 2019-0 Yes [id number] 2mg Take 1 [facility] 2 mg tablet 9-10 9103 tablet by ity of 00:00: mouth 2 00 (two) Medical times Branch daily. rOPINIRole 2019-0 Yes [id number] 2mg Take 1 [facility] 2 mg tablet 9-10 9103 tablet by ity of 00:00: mouth 2 (two) Medical times Branch daily. apixaban 2019-0 Yes [id number] 5mg Take 1 [facility] (ELIQUIS) 5 9-10 9103 tablet by ity of mg tablet 00:00: mouth 2 (two) Medical times Branch daily. atorvastati 2019-0 Yes [id number] 40mg Take 1 [facility] n (LIPITOR) 9-10 9103 tablet by ity of 40 mg 00:00: mouth at [place] tablet 00 bedtime. Medical Branch gabapentin 2019-0 Yes [id number] 300mg Take 1 [facility] 300 mg 9-10 9100 capsule by ity of capsule 00:00: mouth 2 (two) Medical times Branch daily. omeprazole 2019-0 Yes [id number] 40mg Take 1 [facility] 40 mg 9-10 9100 capsule by ity of capsule 00:00: mouth [place] 00 daily. Medical Branch carvedilol 2019-0 Yes [id number] 25mg Take 1 [facility] 25 mg 9-10 9103 tablet by ity of tablet 00:00: mouth 2 00 (two) Medical times Branch daily with meals. digoxin 125 2019-0 Yes [id number] 125ug Take 1 [facility] mcg tablet 9-10 9103 tablet by ity of 00:00: mouth [place] 00 daily. Medical Branch rOPINIRole 2019-0 Yes [id number] 2mg Take 1 [facility] 2 mg tablet 9-10 9103 tablet by ity of 00:00: mouth 2 [place] 00 (two) Medical times Branch daily. apixaban 2019-0 Yes [id number] 5mg Take 1 [facility] (ELIQUIS) 5 9-10 9103 tablet by ity of mg tablet 00:00: mouth 2 00 (two) Medical times Branch daily. atorvastati 2019-0 Yes [id number] 40mg Take 1 [facility] n (LIPITOR) 9-10 9103 tablet by ity of 40 mg 00:00: mouth at [place] tablet 00 bedtime. Medical Branch gabapentin 2019-0 Yes [id number] 300mg Take 1 [facility] 300 mg 9-10 9100 capsule by ity of capsule 00:00: mouth 2 00 (two) Medical times Branch daily. omeprazole 2019-0 Yes [id number] 40mg Take 1 [facility] 40 mg 9-10 9100 capsule by ity of capsule 00:00: mouth [place] 00 daily. Medical Branch carvedilol 2019-0 Yes [id number] 25mg Take 1 [facility] 25 mg 9-10 9103 tablet by ity of tablet 00:00: mouth 2 (two) Medical times Branch daily with meals. digoxin 125 2019-0 Yes [id number] 125ug Take 1 [facility] mcg tablet 9-10 9103 tablet by ity of 00:00: mouth [place] 00 daily. Medical Branch rOPINIRole 2019-0 Yes [id number] 2mg Take 1 [facility] 2 mg tablet 9-10 9103 tablet by ity of 00:00: mouth 2 (two) Medical times Branch daily. apixaban 2019-0 Yes [id number] 5mg Take 1 [facility] (ELIQUIS) 5 9-10 9103 tablet by ity of mg tablet 00:00: mouth 2 (two) Medical times Branch daily. atorvastati 2019-0 Yes [id number] 40mg Take 1 [facility] n (LIPITOR) 9-10 9103 tablet by ity of 40 mg 00:00: mouth at [place] tablet 00 bedtime. Medical Branch gabapentin 2019-0 Yes [id number] 300mg Take 1 [facility] 300 mg 9-10 9100 capsule by ity of capsule 00:00: mouth 2 00 (two) Medical times Branch daily. omeprazole 2019-0 Yes [id number] 40mg Take 1 [facility] 40 mg 9-10 9100 capsule by ity of capsule 00:00: mouth [place] 00 daily. Medical Branch carvedilol 2019-0 Yes [id number] 25mg Take 1 [facility] 25 mg 9-10 9103 tablet by ity of tablet 00:00: mouth 2 (two) Medical times Branch daily with meals. digoxin 125 2019-0 Yes [id number] 125ug Take 1 [facility] mcg tablet 9-10 9103 tablet by ity of 00:00: mouth [place] 00 daily. Medical Branch rOPINIRole 2019-0 Yes [id number] 2mg Take 1 [facility] 2 mg tablet 9-10 9103 tablet by ity of 00:00: mouth 2 (two) Medical times Branch daily. apixaban 2019-0 Yes [id number] 5mg Take 1 [facility] (ELIQUIS) 5 9-10 9103 tablet by ity of mg tablet 00:00: mouth 2 (two) Medical times Branch daily. atorvastati 2019- Yes [id number] 40mg Take 1 [facility] n (LIPITOR) 9-10 9103 tablet by ity of 40 mg 00:00: mouth at [place] tablet 00 bedtime. Medical Branch gabapentin 2019-0 Yes [id number] 300mg Take 1 [facility] 300 mg 9-10 9100 capsule by ity of capsule 00:00: mouth 2 (two) Medical times Branch daily. omeprazole 2019-0 Yes [id number] 40mg Take 1 [facility] 40 mg 9-10 9100 capsule by ity of capsule 00:00: mouth [place] 00 daily. Medical Branch carvedilol 2018-0 Yes [id number] 25mg Take 1 [facility] 25 mg 9-10 9103 tablet by ity of tablet 00:00: mouth 2 (two) Medical times Branch daily with meals. digoxin 125 2018-0 Yes [id number] 125ug Take 1 [facility] mcg tablet 9-10 9103 tablet by ity of 00:00: mouth [place] 00 daily. Medical Branch rOPINIRole 2019-0 Yes [id number] 2mg Take 1 [facility] 2 mg tablet 9-10 9103 tablet by ity of 00:00: mouth 2 (two) Medical times Branch daily. apixaban 2019-0 Yes [id number] 5mg Take 1 [facility] (ELIQUIS) 5 9-10 9103 tablet by ity of mg tablet 00:00: mouth 2 (two) Medical times Branch daily. atorvastati 2019-0 Yes [id number] 40mg Take 1 [facility] n (LIPITOR) 9-10 9103 tablet by ity of 40 mg 00:00: mouth at [place] tablet 00 bedtime. Medical Branch gabapentin 2019-0 Yes [id number] 300mg Take 1 [facility] 300 mg 9-10 9100 capsule by ity of capsule 00:00: mouth 2 [place] 00 (two) Medical times Branch daily. omeprazole 2019-0 Yes [id number] 40mg Take 1 [facility] 40 mg 9-10 9100 capsule by ity of capsule 00:00: mouth [place] 00 daily. Medical Branch carvedilol 2019-0 Yes [id number] 25mg Take 1 [facility] 25 mg 9-10 9103 tablet by ity of tablet 00:00: mouth 2 00 (two) Medical times Branch daily with meals. digoxin 125 2019-0 Yes [id number] 125ug Take 1 [facility] mcg tablet 9-10 9103 tablet by ity of 00:00: mouth [place] 00 daily. Medical Branch rOPINIRole 2019-0 Yes [id number] 2mg Take 1 [facility] 2 mg tablet 9-10 9103 tablet by ity of 00:00: mouth 2 (two) Medical times Branch daily. apixaban 2019-0 Yes [id number] 5mg Take 1 [facility] (ELIQUIS) 5 9-10 9103 tablet by ity of mg tablet 00:00: mouth 2 00 (two) Medical times Branch daily. atorvastati 2019-0 Yes [id number] 40mg Take 1 [facility] n (LIPITOR) 9-10 9103 tablet by ity of 40 mg 00:00: mouth at [place] tablet 00 bedtime. Medical Branch gabapentin 2019-0 Yes [id number] 300mg Take 1 [facility] 300 mg 9-10 9100 capsule by ity of capsule 00:00: mouth 2 00 (two) Medical times Branch daily. omeprazole 2019-0 Yes [id number] 40mg Take 1 [facility] 40 mg 9-10 9100 capsule by ity of capsule 00:00: mouth [place] 00 daily. Medical Branch carvedilol 2019-0 Yes [id number] 25mg Take 1 [facility] 25 mg 9-10 9103 tablet by ity of tablet 00:00: mouth 2 00 (two) Medical times Branch daily with meals. digoxin 125 2019-0 Yes [id number] 125ug Take 1 [facility] mcg tablet 9-10 9103 tablet by ity of 00:00: mouth [place] 00 daily. Medical Branch rOPINIRole 2019-0 Yes [id number] 2mg Take 1 [facility] 2 mg tablet 9-10 9103 tablet by ity of 00:00: mouth 2 (two) Medical times Branch daily. apixaban 2019-0 Yes [id number] 5mg Take 1 [facility] (ELIQUIS) 5 9-10 9103 tablet by ity of mg tablet 00:00: mouth 2 (two) Medical times Branch daily. atorvastati 2019-0 Yes [id number] 40mg Take 1 [facility] n (LIPITOR) 9-10 9103 tablet by ity of 40 mg 00:00: mouth at [place] tablet 00 bedtime. Medical Branch gabapentin 2019-0 Yes [id number] 300mg Take 1 [facility] 300 mg 9-10 9100 capsule by ity of capsule 00:00: mouth 2 (two) Medical times Branch daily. omeprazole 2018-0 Yes [id number] 40mg Take 1 [facility] 40 mg 9-10 9100 capsule by ity of capsule 00:00: mouth 00 daily. Medical Branch carvedilol 2018-0 Yes [id number] 25mg Take 1 [facility] 25 mg 9-10 9103 tablet by ity of tablet 00:00: mouth 2 (two) Medical times Branch daily with meals. digoxin 125 2019-0 Yes [id number] 125ug Take 1 [facility] mcg tablet 9-10 9103 tablet by ity of 00:00: mouth 00 daily. Medical Branch rOPINIRole 2018-0 Yes [id number] 2mg Take 1 [facility] 2 mg tablet 9-10 9103 tablet by ity of 00:00: mouth 2 (two) Medical times Branch daily. apixaban 2019-0 Yes [id number] 5mg Take 1 [facility] (ELIQUIS) 5 9-10 9103 tablet by ity of mg tablet 00:00: mouth 2 (two) Medical times Branch daily. apixaban 2019-0 Yes [id number] 5mg Take 1 [facility] (ELIQUIS) 5 9-10 9103 tablet by ity of mg tablet 00:00: mouth 2 (two) Medical times Branch daily. atorvastati 2019-0 Yes [id number] 40mg Take 1 [facility] n (LIPITOR) 9-10 9103 tablet by ity of 40 mg 00:00: mouth at [place] tablet 00 bedtime. Medical Branch gabapentin 2019-0 Yes [id number] 300mg Take 1 [facility] 300 mg 9-10 9100 capsule by ity of capsule 00:00: mouth 2 (two) Medical times Branch daily. omeprazole 2019-0 Yes [id number] 40mg Take 1 [facility] 40 mg 9-10 9100 capsule by ity of capsule 00:00: mouth [place] 00 daily. Medical Branch carvedilol 2019-0 Yes [id number] 25mg Take 1 [facility] 25 mg 9-10 9103 tablet by ity of tablet 00:00: mouth 2 (two) Medical times Branch daily with meals. digoxin 125 2019-0 Yes [id number] 125ug Take 1 [facility] mcg tablet 9-10 9103 tablet by ity of 00:00: mouth [place] 00 daily. Medical Branch rOPINIRole 2019-0 Yes [id number] 2mg Take 1 [facility] 2 mg tablet 9-10 9103 tablet by ity of 00:00: mouth 2 (two) Medical times Branch daily. atorvastati 2019-0 Yes [id number] 40mg Take 1 [facility] n (LIPITOR) 9-10 9103 tablet by ity of 40 mg 00:00: mouth at [place] tablet 00 bedtime. Medical Branch apixaban 2019-0 Yes [id number] 5mg Take 1 [facility] (ELIQUIS) 5 9-10 9103 tablet by ity of mg tablet 00:00: mouth 2 (two) Medical times Branch daily. atorvastati 2019-0 Yes [id number] 40mg Take 1 [facility] n (LIPITOR) 9-10 9103 tablet by ity of 40 mg 00:00: mouth at [place] tablet 00 bedtime. Medical Branch gabapentin 2019-0 Yes [id number] 300mg Take 1 [facility] 300 mg 9-10 9100 capsule by ity of capsule 00:00: mouth 2 (two) Medical times Branch daily. gabapentin 2019-0 Yes [id number] 300mg Take 1 [facility] 300 mg 9-10 9100 capsule by ity of capsule 00:00: mouth 2 (two) Medical times Branch daily. omeprazole 2019-0 Yes [id number] 40mg Take 1 [facility] 40 mg 9-10 9100 capsule by ity of capsule 00:00: mouth [place] 00 daily. Medical Branch carvedilol 2019-0 Yes [id number] 25mg Take 1 [facility] 25 mg 9-10 9103 tablet by ity of tablet 00:00: mouth 2 00 (two) Medical times Branch daily with meals. digoxin 125 2018-0 Yes [id number] 125ug Take 1 [facility] mcg tablet 9-10 9103 tablet by ity of 00:00: mouth [place] 00 daily. Medical Branch rOPINIRole 2019- Yes [id number] 2mg Take 1 [facility] 2 mg tablet 9-10 9103 tablet by ity of 00:00: mouth 2 [place] 00 (two) Medical times Branch daily. omeprazole 2019-0 Yes [id number] 40mg Take 1 [facility] 40 mg 9-10 9100 capsule by ity of capsule 00:00: mouth [place] 00 daily. Medical Branch apixaban 2018- Yes [id number] 5mg Take 1 [facility] (ELIQUIS) 5 9-10 9103 tablet by ity of mg tablet 00:00: mouth 2 (two) Medical times Branch daily. atorvastati 2018-0 Yes [id number] 40mg Take 1 [facility] n (LIPITOR) 9-10 9103 tablet by ity of 40 mg 00:00: mouth at [place] tablet 00 bedtime. Medical Branch gabapentin 2018-0 Yes [id number] 300mg Take 1 [facility] 300 mg 9-10 9100 capsule by ity of capsule 00:00: mouth 2 (two) Medical times Branch daily. omeprazole 2019-0 Yes [id number] 40mg Take 1 [facility] 40 mg 9-10 9100 capsule by ity of capsule 00:00: mouth [place] 00 daily. Medical Branch carvedilol 2018-0 Yes [id number] 25mg Take 1 [facility] 25 mg 9-10 9103 tablet by ity of tablet 00:00: mouth 2 (two) Medical times Branch daily with meals. carvedilol 2019-0 Yes [id number] 25mg Take 1 [facility] 25 mg 9-10 9103 tablet by ity of tablet 00:00: mouth 2 [place] (two) Medical times Branch daily with meals. digoxin 125 2018-0 Yes [id number] 125ug Take 1 [facility] mcg tablet 9-10 9103 tablet by ity of 00:00: mouth [place] 00 daily. Medical Branch rOPINIRole 2018-0 Yes [id number] 2mg Take 1 [facility] 2 mg tablet 9-10 9103 tablet by ity of 00:00: mouth 2 (two) Medical times Branch daily. digoxin 125 2019-0 Yes [id number] 125ug Take 1 [facility] mcg tablet 9-10 9103 tablet by ity of 00:00: mouth [place] 00 daily. Medical Branch apixaban 2019-0 Yes [id number] 5mg Take 1 [facility] (ELIQUIS) 5 9-10 9103 tablet by ity of mg tablet 00:00: mouth 2 (two) Medical times Branch daily. atorvastati 2019-0 Yes [id number] 40mg Take 1 [facility] n (LIPITOR) 9-10 9103 tablet by ity of 40 mg 00:00: mouth at [place] tablet 00 bedtime. Medical Branch gabapentin 2019-0 Yes [id number] 300mg Take 1 [facility] 300 mg 9-10 9100 capsule by ity of capsule 00:00: mouth 2 (two) Medical times Branch daily. omeprazole 2019-0 Yes [id number] 40mg Take 1 [facility] 40 mg 9-10 9100 capsule by ity of capsule 00:00: mouth 00 daily. Medical Branch carvedilol 2018-0 Yes [id number] 25mg Take 1 [facility] 25 mg 9-10 9103 tablet by ity of tablet 00:00: mouth (two) Medical times Branch daily with meals. digoxin 125 2018-0 Yes [id number] 125ug Take 1 [facility] mcg tablet 9-10 9103 tablet by ity of 00:00: mouth [place] 00 daily. Medical Branch rOPINIRole 2019-0 Yes [id number] 2mg Take 1 [facility] 2 mg tablet 9-10 9103 tablet by ity of 00:00: mouth 2 (two) Medical times Branch daily. rOPINIRole 2019-0 Yes [id number] 2mg Take 1 [facility] 2 mg tablet 9-10 9103 tablet by ity of 00:00: mouth 2 (two) Medical times Branch daily. apixaban 2019-0 Yes [id number] 5mg Take 1 [facility] (ELIQUIS) 5 9-10 9103 tablet by ity of mg tablet 00:00: mouth 2 (two) Medical times Branch daily. atorvastati 2019-0 Yes [id number] 40mg Take 1 [facility] n (LIPITOR) 9-10 9103 tablet by ity of 40 mg 00:00: mouth at [place] tablet 00 bedtime. Medical Branch gabapentin 2019-0 Yes [id number] 300mg Take 1 [facility] 300 mg 9-10 9100 capsule by ity of capsule 00:00: mouth 2 00 (two) Medical times Branch daily. omeprazole 2019-0 Yes [id number] 40mg Take 1 [facility] 40 mg 9-10 9100 capsule by ity of capsule 00:00: mouth [place] 00 daily. Medical Branch carvedilol 2019-0 Yes [id number] 25mg Take 1 [facility] 25 mg 9-10 9103 tablet by ity of tablet 00:00: mouth 2 (two) Medical times Branch daily with meals. digoxin 125 2019-0 Yes [id number] 125ug Take 1 [facility] mcg tablet 9-10 9103 tablet by ity of 00:00: mouth [place] 00 daily. Medical Branch rOPINIRole 2019-0 Yes [id number] 2mg Take 1 [facility] 2 mg tablet 9-10 9103 tablet by ity of 00:00: mouth 2 (two) Medical times Branch daily. apixaban 2019-0 Yes [id number] 5mg Take 1 [facility] (ELIQUIS) 5 9-10 9103 tablet by ity of mg tablet 00:00: mouth 2 (two) Medical times Branch daily. atorvastati 2019-0 Yes [id number] 40mg Take 1 [facility] n (LIPITOR) 9-10 9103 tablet by ity of 40 mg 00:00: mouth at [place] tablet 00 bedtime. Medical Branch gabapentin 2019-0 Yes [id number] 300mg Take 1 [facility] 300 mg 9-10 9100 capsule by ity of capsule 00:00: mouth 2 (two) Medical times Branch daily. omeprazole 2019-0 Yes [id number] 40mg Take 1 [facility] 40 mg 9-10 9100 capsule by ity of capsule 00:00: mouth [place] 00 daily. Medical Branch carvedilol 2019-0 Yes [id number] 25mg Take 1 [facility] 25 mg 9-10 9103 tablet by ity of tablet 00:00: mouth 2 (two) Medical times Branch daily with meals. digoxin 125 2019-0 Yes [id number] 125ug Take 1 [facility] mcg tablet 9-10 9103 tablet by ity of 00:00: mouth [place] 00 daily. Medical Branch rOPINIRole 2019-0 Yes [id number] 2mg Take 1 [facility] 2 mg tablet 9-10 9103 tablet by ity of 00:00: mouth 2 00 (two) Medical times Branch daily. apixaban 2019-0 Yes [id number] 5mg Take 1 [facility] (ELIQUIS) 5 9-10 9103 tablet by ity of mg tablet 00:00: mouth 2 00 (two) Medical times Branch daily. atorvastati 2019-0 Yes [id number] 40mg Take 1 [facility] n (LIPITOR) 9-10 9103 tablet by ity of 40 mg 00:00: mouth at [place] tablet 00 bedtime. Medical Branch gabapentin 2019-0 Yes [id number] 300mg Take 1 [facility] 300 mg 9-10 9100 capsule by ity of capsule 00:00: mouth 2 (two) Medical times Branch daily. omeprazole 2019-0 Yes [id number] 40mg Take 1 [facility] 40 mg 9-10 9100 capsule by ity of capsule 00:00: mouth [place] 00 daily. Medical Branch carvedilol 2018-0 Yes [id number] 25mg Take 1 [facility] 25 mg 9-10 9103 tablet by ity of tablet 00:00: mouth 2 (two) Medical times Branch daily with meals. digoxin 125 2019-0 Yes [id number] 125ug Take 1 [facility] mcg tablet 9-10 9103 tablet by ity of 00:00: mouth [place] 00 daily. Medical Branch rOPINIRole 2018-0 Yes [id number] 2mg Take 1 [facility] 2 mg tablet 9-10 9103 tablet by ity of 00:00: mouth 2 (two) Medical times Branch daily. apixaban 2019-0 Yes [id number] 5mg Take 1 [facility] (ELIQUIS) 5 9-10 9103 tablet by ity of mg tablet 00:00: mouth 2 00 (two) Medical times Branch daily. atorvastati 2019-0 Yes [id number] 40mg Take 1 [facility] n (LIPITOR) 9-10 9103 tablet by ity of 40 mg 00:00: mouth at [place] tablet 00 bedtime. Medical Branch gabapentin 2019-0 Yes [id number] 300mg Take 1 [facility] 300 mg 9-10 9100 capsule by ity of capsule 00:00: mouth 2 (two) Medical times Branch daily. omeprazole 2019-0 Yes [id number] 40mg Take 1 [facility] 40 mg 9-10 9100 capsule by ity of capsule 00:00: mouth [place] 00 daily. Medical Branch carvedilol 2019-0 Yes [id number] 25mg Take 1 [facility] 25 mg 9-10 9103 tablet by ity of tablet 00:00: mouth 2 00 (two) Medical times Branch daily with meals. digoxin 125 2019-0 Yes [id number] 125ug Take 1 [facility] mcg tablet 9-10 9103 tablet by ity of 00:00: mouth [place] 00 daily. Medical Branch rOPINIRole 2019-0 Yes [id number] 2mg Take 1 [facility] 2 mg tablet 9-10 9103 tablet by ity of 00:00: mouth 2 00 (two) Medical times Branch daily. apixaban 2019-0 Yes [id number] 5mg Take 1 [facility] (ELIQUIS) 5 9-10 9103 tablet by ity of mg tablet 00:00: mouth 2 00 (two) Medical times Branch daily. atorvastati 2019-0 Yes [id number] 40mg Take 1 [facility] n (LIPITOR) 9-10 9103 tablet by ity of 40 mg 00:00: mouth at [place] tablet 00 bedtime. Medical Branch apixaban 2019-0 Yes [id number] 5mg Take 1 [facility] (ELIQUIS) 5 9-10 9103 tablet by ity of mg tablet 00:00: mouth 2 00 (two) Medical times Branch daily. atorvastati 2019-0 Yes [id number] 40mg Take 1 [facility] n (LIPITOR) 9-10 9103 tablet by ity of 40 mg 00:00: mouth at [place] tablet 00 bedtime. Medical Branch gabapentin 2019-0 Yes [id number] 300mg Take 1 [facility] 300 mg 9-10 9100 capsule by ity of capsule 00:00: mouth 2 00 (two) Medical times Branch daily. omeprazole 2019-0 Yes [id number] 40mg Take 1 [facility] 40 mg 9-10 9100 capsule by ity of capsule 00:00: mouth [place] 00 daily. Medical Branch carvedilol 2019-0 Yes [id number] 25mg Take 1 [facility] 25 mg 9-10 9103 tablet by ity of tablet 00:00: mouth 2 00 (two) Medical times Branch daily with meals. gabapentin 2019-0 Yes [id number] 300mg Take 1 [facility] 300 mg 9-10 9100 capsule by ity of capsule 00:00: mouth 2 (two) Medical times Branch daily. digoxin 125 2019-0 Yes [id number] 125ug Take 1 [facility] mcg tablet 9-10 9103 tablet by ity of 00:00: mouth [place] 00 daily. Medical Branch rOPINIRole 2019-0 Yes [id number] 2mg Take 1 [facility] 2 mg tablet 9-10 9103 tablet by ity of 00:00: mouth 2 (two) Medical times Branch daily. omeprazole 2019-0 Yes [id number] 40mg Take 1 [facility] 40 mg 9-10 9100 capsule by ity of capsule 00:00: mouth [place] 00 daily. Medical Branch apixaban 2018- Yes [id number] 5mg Take 1 [facility] (ELIQUIS) 5 9-10 9103 tablet by ity of mg tablet 00:00: mouth 2 (two) Medical times Branch daily. atorvastati 2018- Yes [id number] 40mg Take 1 [facility] n (LIPITOR) 9-10 9103 tablet by ity of 40 mg 00:00: mouth at [place] tablet 00 bedtime. Medical Branch gabapentin 2018-0 Yes [id number] 300mg Take 1 [facility] 300 mg 9-10 9100 capsule by ity of capsule 00:00: mouth 2 (two) Medical times Branch daily. omeprazole 2019-0 Yes [id number] 40mg Take 1 [facility] 40 mg 9-10 9100 capsule by ity of capsule 00:00: mouth [place] 00 daily. Medical Branch carvedilol 2018- Yes [id number] 25mg Take 1 [facility] 25 mg 9-10 9103 tablet by ity of tablet 00:00: mouth 2 (two) Medical times Branch daily with meals. digoxin 125 2018-0 Yes [id number] 125ug Take 1 [facility] mcg tablet 9-10 9103 tablet by ity of 00:00: mouth [place] 00 daily. Medical Branch carvedilol 2018-0 Yes [id number] 25mg Take 1 [facility] 25 mg 9-10 9103 tablet by ity of tablet 00:00: mouth 2 (two) Medical times Branch daily with meals. rOPINIRole 2018- Yes [id number] 2mg Take 1 [facility] 2 mg tablet 9-10 9103 tablet by ity of 00:00: mouth 2 (two) Medical times Branch daily. digoxin 125 2019-0 Yes [id number] 125ug Take 1 [facility] mcg tablet 9-10 9103 tablet by ity of 00:00: mouth [place] 00 daily. Medical Branch rOPINIRole 2018-0 Yes [id number] 2mg Take 1 [facility] 2 mg tablet 9-10 9103 tablet by ity of 00:00: mouth 2 (two) Medical times Branch daily. apixaban 2018- Yes [id number] 5mg Take 1 [facility] (ELIQUIS) 5 9-10 9103 tablet by ity of mg tablet 00:00: mouth 2 (two) Medical times Branch daily. atorvastati 2018- Yes [id number] 40mg Take 1 [facility] n (LIPITOR) 9-10 9103 tablet by ity of 40 mg 00:00: mouth at [place] tablet 00 bedtime. Medical Branch gabapentin 2018- Yes [id number] 300mg Take 1 [facility] 300 mg 9-10 9100 capsule by ity of capsule 00:00: mouth (two) Medical times Branch daily. omeprazole 2018-0 Yes [id number] 40mg Take 1 [facility] 40 mg 9-10 9100 capsule by ity of capsule 00:00: mouth 00 daily. Medical Branch carvedilol 2018- Yes [id number] 25mg Take 1 [facility] 25 mg 9-10 9103 tablet by ity of tablet 00:00: mouth (two) Medical times Branch daily with meals. digoxin 125 2018-0 Yes [id number] 125ug Take 1 [facility] mcg tablet 9-10 9103 tablet by ity of 00:00: mouth 00 daily. Medical Branch rOPINIRole 2018-0 Yes [id number] 2mg Take 1 [facility] 2 mg tablet 9-10 9103 tablet by ity of 00:00: mouth 2 (two) Medical times Branch daily. apixaban 2018-0 Yes [id number] 5mg Take 1 [facility] (ELIQUIS) 5 9-10 9103 tablet by ity of mg tablet 00:00: mouth 2 (two) Medical times Branch daily. atorvastati 2018-0 Yes [id number] 40mg Take 1 [facility] n (LIPITOR) 9-10 9103 tablet by ity of 40 mg 00:00: mouth at [place] tablet 00 bedtime. Medical Branch gabapentin 2018-0 Yes [id number] 300mg Take 1 [facility] 300 mg 03-1800 capsule by ity of capsule 00:00: mouth 2 [place] 00 (two) Medical times Branch daily. aztreonam 1 2019- No [id number] 500mg Infuse 500 [facility] gram 03-18 9100 mg every 8 ity of injection 00:00: 04:59 (eight) [place] 00 :[place] hours for Medical 7 days. Branch aztreonam 1 2019- No [id number] 500mg Infuse 500 [facility] gram 03-18 9100 mg every 8 ity of injection 00:00: 04:59 (eight) [place] 00 :[place] hours for Medical 7 days. Branch fluticasone Yes 1{spray 1 [place], [facility] propionate 03-17 } Nasal, ity of 50 14:00: DAILY, [place] mcg/actuati 00 First dose Me dical on nasal on Mon Branch spray 1 03/17/19 at [place] 0900, Until Discontinu ed, Routine Polyethylen Yes 17g 17 g, Unive rs e Glycol 03-17 Oral, ity of 3350 02:00: DAILY, [place] (MIRALAX) 00 First dose Medi micky powder 17 g on Sun Branch 03/16/19 at 2100, Until Discontinu ed, Routine phenol Yes 1{spray 1 [place], Univ ers (SORE 03-16 } Oral, PRN, ity of THROAT 22:22: Starting [place] (PHENOL)) 21 03/16/19 Medi micky 1.4 % spray at 1722, Bran ch bottle 1 Until [place] Discontinu ed, Routine, Oral mucositis insulin 2019- Yes 12U 12 Units, Unive rs glargine 03-16 Subcutaneo ity o f (LANTUS 02:00: us, [facility], [place] U-100) 00 First dose Medical injection on Sat Branch 12 Units 03/15/19 at 2100, Until Discontinu ed, Routine insulin 2019- Yes 5U 5 Units, Univer s glargine 03-15 Subcutaneo ity o f (LANTUS 14:00: us, DAILY, [facility] U-100) 00 First dose Medical injection 5 on Sat Branch Units 03/15/19 at 0900, Until Discontinu ed, Routine ketorolac 2018- 2019- No 30mg 30 mg, Unive rs (TORADOL) 03-13 Slow IV ity of injection 21:15: 21:15 Push, [place] 30 mg 00 :00 ONCE, 1 Medical dose, [facility] 03/13/19 at 1615, Routine
modular set crew member approving Restricted medication : CHUCKY ELKINS diphenhydrA 2018-0 Yes 25mg 25 mg, Univ ers MINE 03-13 Oral, ity of (BENADRYL) 21:12: Q4HPRN, [place] tablet 25 04 Starting Medica l mg [facility] 03/13/19 Branch at 1612, Until Discontinu ed, Routine, Itching, Mild Rash diphenhydrA 2019- No 25mg 25 mg, Uni vers MINE 03-13 Oral, ity of (BENADRYL) 10:09: 10:12 ONCE, 1 Maulik as tablet 25 00 :00 dose, [facility] Medic al mg 03/13/19 at Branch 0515, Routine atorvastati 2018-0 Yes 40mg 40 mg, Univ ers n (LIPITOR) 03-12 Oral, QHS, it y of tablet 40 02:00: First dose [place] mg 00 on [facility] 03/11/19 at Branch 2100, Until Discontinu ed, Routine digoxin 2018-0 Yes 125ug 125 mcg, Unive rs (LANOXIN) 03-11 Oral, ity of tablet 125 14:00: DAILY, [place] mcg 00 First dose Medical on [facility] 03/11/19 at 0900, Until Discontinu ed, Routine omeprazole 2019-0 Yes 40mg 40 mg, Unive rs (PRILOSEC) 03-11 Oral, ity of capsule 40 14:00: DAILY, [place] mg 00 First dose Medical on [facility] 03/11/19 at 0900, Until Discontinu ed furosemide 2019-0 Yes 40mg 40 mg, Unive rs (LASIX) 03-11 Oral, ity of tablet 40 14:00: DAILY, [place] mg 00 First dose Medical on [facility] 03/11/19 at 0900, Until Discontinu ed, Routine carvedilol 2018-0 Yes 25mg 25 mg, Unive rs (COREG) 03-11 Oral, BID ity of tablet 25 13:00: MEALS, [place] mg 00 First dose Medical on [facility] Branch 03/11/19 at 0800, Until Discontinu ed, Routine apixaban 2019 Yes 5mg 5 mg, Univers (ELIQUIS) 03-11 Oral, BID, ity of tablet 5 mg 13:00: First dose on [facility] 03/11/19 at Branch 0800, Until Discontinu ed, Routine levalbutero 2019- No .63mg 0.63 mg, Univers l (XOPENEX) 03-11 Inhalation i ty of nebulizer 13:00: 15:44 , QID, [place] solution 00 :19 First dose Medic al 0.63 mg on [facility] 03/11/19 at 0800, Until Discontinu ed, Routine
Approved by: ADC PROVIDER fluticasone 2019- No 1{puff} 1 Puff, Univers propionate 03-11 Inhalation it y of (FLOVENT 13:00: 15:43 , Q12H, [place] HFA) 44 00 :54 First dose Medica l mcg/actuati on Sun [place] on inhaler 03/11/19 at 1 Puff 0800, Until Discontinu ed Sliding Yes Subcutaneo Univ ers Scale 03-11 us, AC+HS, ity of Insulin-Reg 12:30: First dose [place] ular + Fsbg 00 on [facility] Medica l Testing 03/11/19 at Branch 0730, Until Discontinu ed, Routine pramipexole Yes 2mg 2 mg, Unive rs (MIRAPEX) 03-11 Oral, BID, ity of tablet 2 mg 07:00: First dose on [facility] 03/11/19 at Branch 0200, Until Discontinu ed
Facu lty member approving Restricted medication : TAINA CASTRO aztreonam Yes 500mg 500 mg, IV U nivers (AZACTAM) 03-11 [place], ity of 500 mg in 04:15: Q8H ABX, [place] NaCl 0.9% 00 First dose Medi micky (NS) 50 mL on [facility] Branch IV 03/10/19 at Piggy[place] 2315, Until Discontinu ed, 50 mL
Reas on for Anti-Infec tive: Empiric Therapy for Suspected Infection< br>Empiric Therapy Site: Urine
D uration of therapy: 7 days insulin 2018-0 2019- No 15U 15 Units, [facility] ers glargine 03-11 09-07 Subcutaneo ity of [...] 04:00: First dose [place] mg 00 on [facility] Medical 03/10/19 at Branch 2300, Until Discontinu ed, Routine dextrose Yes 250mL 250 mL, IV Un adali 10% (D10W) 03-11 Infusion, ity of bolus 03:23: PRN - SEE [place] infusion 42 INSTRUCTIO Medic al 250 mL [...] IV Push, ity of (PF)) 03:14: Q6HPRN, [place] injection 4 56 Starting Medi micky mg 03/10/19 Branch at 2214, Until Discontinu ed, Routine, Nausea and Vomiting (N/V) acetaminoph 2019-0 Yes 650mg 650 mg, Un adali en 03-11 Oral, ity of (TYLENOL) 03:14: Q6HPRN, [place] tablet 650 44 Starting Medic al mg Sun03/10/19 Branch at 2214, Until Discontinu ed, Routine, Pain (scale 1-3) CYANOCOBALA 2019- No Take by Chaz BOWDEN, 03-11 mouth. ity of VITAMIN 03:12: 00:00 [place] B-12, 48 :00 Medical (VITAMIN Branch B-12 [...] 1,000 mL 00 :00 IV Medical Infusion, [place] ONCE, 1 dose, 03/10/19 at 1845, SELINA gabapentin 2018- No 300mg Take 300 U nivers 300 mg 03-10 mg by ity of capsule 00:00: 00:00 mouth 2 [place] 00 :00 (two) Medical times Branch daily. carvedilol 2019- No [id number] 25mg Take 1 [facility] 25 mg 11-06 9103 tablet by ity of tablet 00:00: 00:00 mouth 2 [place] 00 :00 (two) Medical times Branch daily with meals. linagliptin 2019- No [id number] 5mg Take 1 [facility] (TRADJENTA) 11-06 9103 tablet by it y of 5 mg tablet 00:00: 00:00 mouth [place] 00 :00 daily. Medical Branch atorvastati 2018- No [id number] 40mg Take 1 Univers n (LIPITOR) 11-06 9103 tablet by it y of 40 mg 00:00: 00:00 mouth at [place] tablet 00 :00 bedtime. Medical Branch rOPINIRole 2018- No [id number] 2mg Take 1 [facility] 2 mg tablet 11-06 9103 tablet by it y of 00:00: 00:00 mouth 2 [place] 00 :00 (two) Medical times Branch daily. levalbutero 2018- No [id number] .63mg Inhale Univers l 0.63 mg/3 11-06 9103 0.63 mg 4 it y of mL 00:00: 00:00 (four) [place] nebulizer 00 :00 times Medical solution daily. Branch digoxin 125 2018- No [id number] 125ug Take 1 [facility] mcg tablet 11-0603 tablet by ity of 00:00: 00:00 mouth [place] 00 :00 every 48 Medical (forty-eig Branch ) hours. apixaban 2018- No [id number] 5mg Take 1 [facility] (ELIQUIS) 5 11-06 9103 tablet by it y of mg tablet 00:00: 00:00 mouth 2 [place] 00 :00 (two) Medical times Branch daily. insulin 2018- No [id number] 20U inject 20 [facility] glargine 11-0603 Units ity of 100 unit/mL 00:00: 00:00 under the [place] injection 00 :00 skin at Medical bedtime. Branch furosemide 2018- No [id number] 40mg Take 1 [facility] 40 mg 11-0603 tablet by ity of tablet 00:00: 00:00 mouth [place] 00 :00 daily. Medical Branch magnesium 2018- No [id number] 800mg Take 2 Univers oxide 400 11-06 [...] Nausea. amlodipine amlodipine No 1 Q1D amlodipine [facility] 5 mg tablet 5 mg tablet 5 mg F amily Take 1 Take 1 tablet Practic tablet tablet Take 1 e every day every day tablet by oral by oral every day route. route. by oral route. atorvastati atorvastati No 1 Q1D atorvastat [facility] n 40 mg n 40 mg in 40 mg Famil y tablet Take tablet Take tablet Practic 1 tablet 1 tablet Take 1 e every day every day tablet by oral by oral every day route. route. by oral route. Becky Pena No 18unit( Q1D [facility] KwikPen KwikPen s) KwikPen Family U-100 U-100 [...] route. carvedilol carvedilol No 1 BID carvedilol [facility] 25 mg 25 mg 25 mg Family tablet Take tablet Take tablet Practic 1 tablet 1 tablet Take 1 e twice a day twice a day tablet by oral by oral twice a route. route. day by oral route. clonidine clonidine No 1 clonidine [facility] HCl 0.1 mg HCl 0.1 [...] route. furosemide furosemide No 1 Q1D furosemide [facility] 40 mg 40 mg 40 mg Family tablet Take tablet Take tablet Practic 1 tablet 1 tablet Take 1 e every day every day tablet by oral by oral every day route. route. by oral route. gabapentin gabapentin No 1capsul TID gabapentin [facility] 300 mg 300 mg e(s) 300 mg Family capsule capsule capsule Practi c Take 1 Take 1 Take 1 e capsule 3 capsule 3 capsule 3 times a day times a day times a by oral by oral day by route. route. oral route. omeprazole omeprazole No 1capsul Q1D omeprazole [facility] 40 mg 40 mg e(s) 40 mg Family capsule,del capsule,del capsule,de Practic ayed ayed layed e release release release Take 1 Take 1 Take 1 capsule capsule capsule every day every day every day by oral by oral by oral route. route. route. Immunizations Ordered Filled Immunization Date Status Comments [facility] e Immunization Name Name SARS-COV-2 COVID-19 2020-10-18 Completed Unive rsity of [employer] VACCINE 00:00:00 [facility] SARS-COV-2 COVID-19 2020-10-18 Completed Unive rsity of [employer] VACCINE 00:00:00 [facility] SARS-COV-2 COVID-19 2020-10-18 Completed Unive rsity of [employer] VACCINE 00:00:00 [facility] SARS-COV-2 COVID-19 2020-10-18 Completed Unive rsity of [employer] VACCINE 00:00:00 [facility] SARS-COV-2 COVID-19 2020-10-18 Completed Unive rsity of PFIZER VACCINE 00:00:00 [facility] Branch SARS-COV-2 COVID-19 2020-10-18 Completed Unive rsity of PFIZER VACCINE 00:00:00 [facility] Branch SARS-COV-2 COVID-19 2020-10-18 Completed Unive rsity of PFIZER VACCINE 00:00:00 [facility] SARS-COV-2 COVID-19 2020-10-18 Completed Unive rsity of PFIZER VACCINE 00:00:00 [facility] SARS-COV-2 COVID-19 2020-10-18 Completed Unive rsity of PFIZER VACCINE 00:00:00 [facility] SARS-COV-2 COVID-19 2020-10-18 Completed Unive rsity of PFIZER VACCINE 00:00:00 [facility] SARS-COV-2 COVID-19 2020-10-18 Completed Unive rsity of PFIZER VACCINE 00:00:00 [facility] SARS-COV-2 COVID-19 2020-10-18 Completed Unive rsity of PFIZER VACCINE 00:00:00 [facility] SARS-COV-2 COVID-19 2020-10-18 Completed Unive rsity of PFIZER VACCINE 00:00:00 [facility] SARS-COV-2 COVID-19 2020-10-18 Completed Unive rsity of PFIZER VACCINE 00:00:00 [facility] SARS-COV-2 COVID-19 2020-10-18 Completed Unive rsity of PFIZER VACCINE 00:00:00 [facility] SARS-COV-2 COVID-19 2020-10-18 Completed Unive rsity of PFIZER VACCINE 00:00:00 [facility] SARS-COV-2 COVID-19 2020-10-18 Completed Unive rsity of PFIZER VACCINE 00:00:00 [facility] SARS-COV-2 COVID-19 2020-09-27 Completed Unive rsity of PFIZER VACCINE 00:00:00 [facility] SARS-COV-2 COVID-19 2020-09-27 Completed Unive rsity of PFIZER VACCINE 00:00:00 [facility] SARS-COV-2 COVID-19 2020-09-27 Completed Unive rsity of PFIZER VACCINE 00:00:00 [facility] SARS-COV-2 COVID-19 2020-09-27 Completed Unive rsity of PFIZER VACCINE 00:00:00 [facility] SARS-COV-2 COVID-19 2020-09-27 Completed Unive rsity of PFIZER VACCINE 00:00:00 [facility] SARS-COV-2 COVID-19 2020-09-27 Completed Unive rsity of PFIZER VACCINE 00:00:00 [facility] SARS-COV-2 COVID-19 2020-09-27 Completed Unive rsity of PFIZER VACCINE 00:00:00 [facility] SARS-COV-2 COVID-19 2020-09-27 Completed Unive rsity of PFIZER VACCINE 00:00:00 [facility] SARS-COV-2 COVID-19 2020-09-27 Completed Unive rsity of PFIZER VACCINE 00:00:00 [facility] SARS-COV-2 COVID-19 2020-09-27 Completed Unive rsity of PFIZER VACCINE 00:00:00 [facility] SARS-COV-2 COVID-19 2020-09-27 Completed Unive rsity of PFIZER VACCINE 00:00:00 [facility] SARS-COV-2 COVID-19 2020-09-27 Completed Unive rsity of PFIZER VACCINE 00:00:00 [facility] SARS-COV-2 COVID-19 2020-09-27 Completed Unive rsity of PFIZER VACCINE 00:00:00 [facility] SARS-COV-2 COVID-19 2020-09-27 Completed Unive rsity of PFIZER VACCINE 00:00:00 [facility] SARS-COV-2 COVID-19 2020-09-27 Completed Unive rsity of PFIZER VACCINE 00:00:00 [facility] SARS-COV-2 COVID-19 2020-09-27 Completed Unive rsity of PFIZER VACCINE 00:00:00 [facility] SARS-COV-2 COVID-19 2020-09-27 Completed Unive rsity of PFIZER VACCINE 00:00:00 [facility] Influenza Virus 2018-04-22 Completed Universit y of Vaccine 00:00:00 [facility] Influenza Virus 2018-04-22 Completed Universit y of Vaccine 00:00:00 [facility] Influenza Virus 2018-04-22 Completed Universit y of Vaccine 00:00:00 [facility] Influenza Virus 2018-04-22 Completed Universit y of Vaccine 00:00:00 [facility] Influenza Virus 2018-04-22 Completed Universit y of Vaccine 00:00:00 [facility] Influenza Virus 2018-04-22 Completed Universit y of Vaccine 00:00:00 [facility] Influenza Virus 2018-04-22 Completed Universit y of Vaccine 00:00:00 [facility] Influenza Virus 2018-04-22 Completed Universit y of Vaccine 00:00:00 [facility] Influenza Virus 2018-04-22 Completed Universit y of Vaccine 00:00:00 [facility] Influenza Virus 2018-04-22 Completed Universit y of Vaccine 00:00:00 [facility] Influenza Virus 2018-04-22 Completed Universit y of Vaccine 00:00:00 [facility] Influenza Virus 2018-04-22 Completed Universit y of Vaccine 00:00:00 [facility] Influenza Virus 2018-04-22 Completed Universit y of Vaccine 00:00:00 [facility] Influenza Virus 2018-04-22 Completed Universit y of Vaccine 00:00:00 [facility] Influenza Virus 2018-04-22 Completed Universit y of Vaccine 00:00:00 [facility] Influenza Virus 2018-04-22 Completed Universit y of Vaccine 00:00:00 [facility] Influenza Virus 2018-04-22 Completed Universit y of Vaccine 00:00:00 [facility] Influenza Virus 2018-04-22 Completed Universit y of Vaccine 00:00:00 [facility] Influenza Virus 2018-04-22 Completed Universit y of Vaccine 00:00:00 [facility] Influenza Virus 2018-04-22 Completed Universit y of Vaccine 00:00:00 [facility] Influenza Virus 2018-04-22 Completed Universit y of Vaccine 00:00:00 [facility] Influenza Virus 2018-04-22 Completed Universit y of Vaccine 00:00:00 [facility] Influenza Virus 2018-04-22 Completed Universit y of Vaccine 00:00:00 [facility] Influenza Virus 2018-04-22 Completed Universit y of Vaccine 00:00:00 [facility] Influenza Virus 2018-04-22 Completed Universit y of Vaccine 00:00:00 [facility] Influenza Virus 2018-04-22 Completed Universit y of Vaccine 00:00:00 [facility] Influenza Virus 2018-04-22 Completed Universit y of Vaccine 00:00:00 [facility] Influenza Virus 2018-04-22 Completed Universit y of Vaccine 00:00:00 [facility] Influenza Virus 2018-04-22 Completed Universit y of Vaccine 00:00:00 [facility] Pneumococcal 2017-07-23 Completed University o f [...] 2017-07-23 Completed University o f Polysaccharide, 00:00:00 [facility] PPSV23 (PNEUMOVAX) [facility] Vital Signs Vital Name Observation Time Observation Value Comments Source Systolic blood 2021-04-06 17:00:00 114 mm[Hg] Univer sity of [facility] Diastolic blood 2021-04-06 17:00:00 55 mm[Hg] Unive rsity of pressure [facility] Heart rate 2021-04-06 17:00:00 60 /min [facility] Body temperature 2021-04-06 17:00:00 36.67 Kourtney Univ ers[facility] Respiratory rate 2021-04-06 17:00:00 16 /min [facility] Oxygen saturation in 2021-04-06 17:00:00 98 /min [facility] of Arterial blood by [place] [facility] Pulse oximetry [facility] Body height 2021-04-06 13:02:54 170.2 cm [facility] Body weight 2021-04-06 13:02:54 86.637 kg [facility] BMI 2021-04-06 13:02:54 29.91 kg/m2 [facility] Systolic blood 2021-03-29 16:00:00 126 mm[Hg] Univer [facility]ity of [facility] Diastolic blood 2021-03-29 16:00:00 83 mm[Hg] Unive rsity of pressure [facility] Heart rate 2021-03-29 16:00:00 68 /min [facility] Body temperature 2021-03-29 16:00:00 35.56 Kourtney [facility] Respiratory rate 2021-03-29 16:00:00 26 /min [facility] Oxygen saturation in 2021-03-29 16:00:00 83 /min University of Arterial blood by [facility] Pulse oximetry Branch Body weight 2021-03-26 09:11:00 86.909 kg [facility] BMI 2021-03-26 09:11:00 30.01 kg/m2 [facility] Body height 2021-03-23 20:50:00 170.2 cm [facility] Systolic blood 2021-03-17 20:36:00 155 mm[Hg] Univer sity of [facility] Diastolic blood 2021-03-17 20:36:00 82 mm[Hg] Unive rsity of pressure [facility] Heart rate 2021-03-17 20:32:00 87 /min [facility] Body temperature 2021-03-17 20:32:00 36.22 Kourtney [facility] Respiratory rate 2021-03-17 20:32:00 17 /min [facility] Oxygen saturation in 2021-03-17 20:32:00 94 /min University of Arterial blood by [facility] Pulse oximetry Branch Body height 2021-03-16 23:00:00 170.2 cm [facility] Body weight 2021-03-16 23:00:00 95.981 kg [facility] BMI 2021-03-16 23:00:00 33.14 kg/m2 [facility] Height 2020-03-22 00:00:00 67 [in_i] [facility] Height 2020-02-18 00:00:00 67 [in_i] [facility] Height 2019-12-18 00:00:00 67 [in_i] [facility] BMI (Body Mass 2019-12-18 00:00:00 27.4 kg/m2 [facility] Body Weight 2019-12-18 00:00:00 175 [lb_av] [facility] Body height 2019-08-14 16:46:00 170.2 cm [facility] Body weight 2019-08-14 16:46:00 78.019 kg [facility] BMI 2019-08-14 16:46:00 26.94 kg/m2 Universi ty of [facility] Systolic blood 2019-03-18 20:40:00 144 mm[Hg] Univer sity of pressure [facility] Diastolic blood 2019-03-18 20:40:00 73 mm[Hg] Unive rsity of pressure [facility] Heart rate 2019-03-18 20:40:00 85 /min [facility] Body temperature 2019-03-18 20:40:00 37 Kourtney [facility] Respiratory rate 2019-03-18 20:40:00 20 /min [facility] Oxygen saturation in 2019-03-18 20:40:00 95 /min [facility] blood by [place] [facility] Pulse oximetry Branch Body height 2019-03-11 02:48:[address] [facility] Body weight 2019-03-11 02:48:[address] [facility] BMI 2019-03-11 02:48:00 28.19 kg/m2 [facility] Procedures Procedure Date / Time Performing Clinician Source Performed EXTERNAL PROVIDER 2021-04-20 05:01:00 Doctor Unassigned, No [facility] RECORDS Name [facility] [place] ED LACERATION REPAIR 2021-04-06 14:26:04 Winifred Gill [facility] CT TRAUMA HEAD WO 2021-04-06 13:33:06 Barney Bland [facility] CONTRAST [facility] CT TRAUMA CERVICAL SPINE 2021-04-06 13:33:06 Barney Bland [facility] WO CONTRAST [facility] XR CHEST 1 VW 2021-04-06 13:20:[address] [facility] XR KNEE 3 VW BILATERAL 2021-04-06 13:20:21 Barney Bland [facility] COMP. METABOLIC PANEL 2021-04-06 13:13:00 Barney Bland [facility] ([id number]) [facility] CBC WITH DIFF 2021-04-06 13:13:[address] [facility] PROTHROMBIN TIME / INR 2021-04-06 13:13:00 Barney Bland [facility] HB ABO GROUPING 2021-04-06 13:11:[address] [facility] POCT GLUCOSE (AUTOMATED) 2021-03-29 16:36:00 Jad Gavin [facility] POCT GLUCOSE (AUTOMATED) 2021-03-29 12:42:00 Jad Gavin [facility] URINALYSIS 2021-03-29 09:49:00 Lindsey Olson [facility] OSMOLALITY URINE 2021-03-29 09:48:00 Lindsey Olson [facility] PHOSPHORUS 2021-03-29 09:45:00 Lindsey Olson [facility] URIC ACID 2021-03-29 09:45:00 Lindsey Olson [facility] MAGNESIUM 2021-03-29 09:45:00 Lindsey Olson [facility] OSMOLALITY, SERUM OR 2021-03-29 09:45:00 Lindsey Olson [facility] PLASMA [facility] COMP. METABOLIC PANEL 2021-03-29 09:45:00 Lindsey Olson [facility] ([id number]) Medical Branch POCT GLUCOSE (AUTOMATED) 2021-03-29 01:21:00 Jad Gavin [facility] POCT GLUCOSE (AUTOMATED) 2021-03-28 21:38:00 Jad Gavin [facility] POCT GLUCOSE (AUTOMATED) 2021-03-28 16:39:00 Jad Gavin [facility] POCT GLUCOSE (AUTOMATED) 2021-03-28 12:21:00 Jad Gavin [facility] BASIC METABOLIC PANEL 2021-03-28 10:40:00 Jad Gavin [facility] (NA, K, CL, CO2, Medical [facility] GLUCOSE, BUN, CREATININE, CA) CBC WITH DIFF 2021-03-28 10:40:00 Jad Gavin [facility] POCT GLUCOSE (AUTOMATED) 2021-03-28 01:57:00 Jad Gavin [facility] POCT GLUCOSE (AUTOMATED) 2021-03-27 22:18:00 Jad Gavin [facility] POCT GLUCOSE (AUTOMATED) 2021-03-27 16:41:00 Jad Gavin [facility] POCT GLUCOSE (AUTOMATED) 2021-03-27 12:57:00 Jad Gavin [facility] BASIC METABOLIC PANEL 2021-03-27 11:28:00 Jad Gavin [facility] (NA, K, CL, CO2, Medical [facility] GLUCOSE, BUN, CREATININE, CA) CBC WITH DIFF 2021-03-27 11:28:00 Jad Gavin [facility] POCT GLUCOSE (AUTOMATED) 2021-03-27 00:56:00 Jad Gavin [facility] ([facility]OMATED) 2021-03-26 20:51:00 Jad Gavin [facility] POCT GLUCOSE (AUTOMATED) 2021-03-26 17:05:00 Jad Gavin [facility] versity of [facility] POCT GLUCOSE (AUTOMATED) 2021-03-26 12:46:00 Jad Gavin [facility] POCT GLUCOSE (AUTOMATED) 2021-03-26 00:46:00 Jad Gavin [facility] versity [facility] POCT GLUCOSE (AUTOMATED) 2021-03-25 21:58:00 Jad Gavin [facility] PO[facility] GLUCOSE (AUTOMATED) 2021-03-25 16:00:00 Jad Gavin [facility] POCT GLUCOSE (AUTOMATED) 2021-03-25 12:52:00 Jad Gavin [facility] BASIC METABOLIC PANEL 2021-03-25 10:20:00 Jad Gavin [facility] (NA, K, CL, CO2, Medical [facility] GLUCOSE, BUN, CREATININE, CA) CBC WITH DIFF 2021-03-25 10:20:00 Jad [facility] POCT GLUCOSE (AUTOMATED) 2021-03-25 00:26:00 Jad Gavin [facility] POCT GLUCOSE (AUTOMATED) 2021-03-24 21:13:00 Jad Gavin [facility] POCT GLUCOSE (AUTOMATED) 2021-03-24 16:57:00 Jad Gavin [facility] POCT GLUCOSE (AUTOMATED) 2021-03-24 12:58:00 Jad Gavin [facility] POCT GLUCOSE (AUTOMATED) 2021-03-24 01:29:00 Jad Gavin [facility] POCT GLUCOSE (AUTOMATED) 2021-03-23 21:32:00 Jad Gavin [facility] MRSA / MSSA SCREEN BY 2021-03-23 20:46:00 Marisol Bella [facility] PCR, [facility] Branch URINALYSIS 2021-03-23 16:15:00 Singer [facility] CT CHEST PULMONARY 2021-03-23 15:50:42 Singer [facility] ANGIOGRAM Medical Branch TROPONIN I 2021-03-23 15:27:00 Singer [facility] COMP. METABOLIC PANEL 2021-03-23 15:27:00 Singer [facility] ([id number]) [facility] CBC WITH DIFF 2021-03-23 15:27:00 Singer [facility] N-TERMINAL PRO-BNP 2021-03-23 15:27:00 Singer [facility] EKG-12 LEAD 2021-03-23 15:24:20 Singer [facility] POCT GLUCOSE (AUTOMATED) 2021-03-17 22:19:00 [facility] 2021-03-17 19:57:00 [facility]AST Medical [facility] POCT GLUCOSE (AUTOMATED) 2021-03-17 16:51:00 [facility]indy [facility] POCT GLUCOSE (AUTOMATED) 2021-03-17 13:12:00 Cindy [facility] CBC WITH DIFF 2021-03-17 09:46:00 Gillette [facility] MAGNESIUM 2021-03-17 09:45:00 [place], [facility] C-REACTIVE PROTEIN 2021-03-17 09:45:00 Cedrick Ojdea [facility] BASIC METABOLIC PANEL 2021-03-17 09:45:00 Leta [facility] (NA, K, CL, CO2, [facility] GLUCOSE, BUN, CREATININE, CA) POCT GLUCOSE (AUTOMATED) 2021-03-17 02:14:00 Cindy [facility] BASIC METABOLIC PANEL 2021-03-17 01:46:00 [place], [facility] (NA, K, CL, CO2, [facility] GLUCOSE, BUN, CREATININE, CA) PROTHROMBIN TIME / INR 2021-03-17 01:46:00 [place], [facility] LACTIC ACID WHOLE BLOOD 2021-03-17 01:46:00 [facility]OMATED) 2021-03-16 22:37:00 Gemma White Shanika [facility] XR CHEST 1 VW 2021-03-16 16:04:12 Andriy Pierson [facility] URINALYSIS 2021-03-16 16:01:00 Andriy Pierson [facility] PROCALCITONIN 2021-03-16 15:41:00 Andriy Pierson [facility] HB ECG ROUTINE & RHYTHM 2021-03-16 15:35:04 Andriy Pierson [facility] BLOOD CULTURE SCREEN 2021-03-16 15:32:00 [facility]GE[facility]SE 2021-03-16 15:32:00 [facility] FERRITIN SERUM 2021-03-16 15:25:00 Andriy Pierson [facility] TROPONIN I 2021-03-16 15:25:00 Andriy Pierson [facility] COMP. METABOLIC PANEL 2021-03-16 15:25:00 Andriy Pierson [facility] ([id number]) [facility] CBC WITH DIFF 2021-03-16 15:25:00 Andriy Pierson [facility] GLYCOSYLATED HEMOGLOBIN 2021-03-16 15:25:00 Gillette [facility] (A1C) [facility] PROTHROMBIN TIME / INR 2021-03-16 15:25:00 Andriy Pierson [facility] D-DIMER 2021-03-16 15:25:00 Andriy Pierson [facility] FIBRINOGEN 2021-03-16 15:25:00 Andriy Pierson [facility] N-TERMINAL PRO-BNP 2021-03-16 15:25:[address] [facility] LACTIC ACID WHOLE BLOOD 2021-03-16 15:24:00 Andriy Pierson [facility] CBC WITH DIFF 2021-01-22 15:25:00 Lindsey Olson [facility] ASSIGNMENT OF BENEFITS 2021-01-22 15:09:35 Doctor Unassigned, No [facility] ASSIGNMENT OF BENEFITS 2020-09-10 21:16:10 Doctor Unassigned, No [facility] MR BRAIN WO CONTRAST 2020-05-04 18:46:12 Requisition, Paper [facility] CONSENT/REFUSAL FOR 2020-05-04 17:42:43 Doctor Unassigned, No [facility] XR KNEE 3 VW RIGHT 2019-08-11 18:42:30 Jaiden Luna [facility] EXTERNAL PROVIDER 2019-07-31 06:01:00 Doctor Unassigned, No [facility] RECORDS Name [facility] AUTHORIZATION FOR 2019-07-03 06:01:00 Doctor Unassigned, No [facility] RELEASE OF PHI [facility] POCT GLUCOSE (AUTOMATED) 2019-03-18 16:30:00 Taina Castro [employer] [facility] POCT GLUCOSE (AUTOMATED) 2019-03-18 12:21:00 [facility] BASIC METABOLIC PANEL 2019-03-18 09:26:00 Ken Gomez [facility] (NA, K, CL, CO2, [facility] [place] GLUCOSE, BUN, CREATININE, CA) POCT GLUCOSE (AUTOMATED) 2019-03-18 06:44:00 Taina Castro [employer] [facility] POCT GLUCOSE (AUTOMATED) 2019-03-18 01:38:00 Taina Castro [facility] XR CHEST 1 VW 2019-03-17 22:07:36 Ken Gomez [place] [facility] POCT GLUCOSE (AUTOMATED) 2019-03-17 21:58:00 Taina Castro [employer] [facility] POCT GLUCOSE (AUTOMATED) 2019-03-17 16:09:00 Taina Castro [employer] [facility] CBC WITH DIFFERENTIAL 2019-03-17 12:37:00 Chucky Elkins [facility] POCT GLUCOSE (AUTOMATED) 2019-03-17 12:37:00 Taina Castro [facility] BASIC METABOLIC PANEL 2019-03-17 12:36:00 Chucky Elkins [facility] (NA, K, CL, CO2, [facility] GLUCOSE, BUN, CREATININE, CA) POCT GLUCOSE (AUTOMATED) 2019-03-17 00:33:00 EdionweAngeliay Uni vers[facility] POCT GLUCOSE (AUTOMATED) 2019-03-16 21:30:00 Edionwe, [facility] POCT GLUCOSE (AUTOMATED) 2019-03-16 16:25:00 Edionwe, Angeliay [facility] XR FOOT 3+ VW RIGHT 2019-03-16 15:46:29 Chucky Elkins [facility] POCT GLUCOSE (AUTOMATED) 2019-03-16 12:35:00 Edionwe, [facility] POCT GLUCOSE (AUTOMATED) 2019-03-16 00:28:00 Edionwe, [facility] POCT GLUCOSE (AUTOMATED) 2019-03-15 21:50:00 Edionwe [facility] POCT GLUCOSE (AUTOMATED) 2019-03-15 16:15:00 Edionwe, [facility] POCT GLUCOSE (AUTOMATED) 2019-03-15 13:56:00 Edionwe, [facility] POCT GLUCOSE (AUTOMATED) 2019-03-15 12:51:00 Edionwe, [facility] POCT GLUCOSE (AUTOMATED) 2019-03-15 00:32:00 Edionwe, [facility] POCT GLUCOSE (AUTOMATED) 2019-03-14 21:33:00 Edionwe [facility] POCT GLUCOSE (AUTOMATED) 2019-03-14 16:56:00 Edionwe, [facility] POCT GLUCOSE (AUTOMATED) 2019-03-14 12:23:00 Edionwe, [facility] XR CHEST 1 VW 2019-03-14 07:21:50 Hansel abbe [place] [facility] POCT GLUCOSE (AUTOMATED) 2019-03-14 01:22:00 Ednancy Angeliay [facility] XR KNEE 3 VW LEFT 2019-03-13 23:04:42 Chucky Elkins [facility] POCT GLUCOSE (AUTOMATED) 2019-03-13 21:03:00 EdionweTaina [facility] POCT GLUCOSE (AUTOMATED) 2019-03-13 16:22:00 Edionwe, Taina [facility] POCT GLUCOSE (AUTOMATED) 2019-03-13 12:25:00 Edionwe, Taina Uni versity of [facility] BASIC METABOLIC PANEL 2019-03-13 09:57:00 Chucky Elkins [facility] (NA, K, CL, CO2, [facility] GLUCOSE, BUN, CREATININE, CA) CBC WITH DIFFERENTIAL 2019-03-13 09:57:00 Chucky Elkins [facility] POCT GLUCOSE (AUTOMATED) 2019-03-13 01:34:00 Edionwe, Taina Uni vers[facility] of [facility] POCT GLUCOSE (AUTOMATED) 2019-03-12 20:57:00 Edionwe, Taina Uni versity of [facility] POCT GLUCOSE (AUTOMATED) 2019-03-12 16:27:00 EdionweTaina [facility] POCT GLUCOSE (AUTOMATED) 2019-03-12 12:40:00 Edionwe, [facility] Uni versity of [facility] POCT GLUCOSE (AUTOMATED) 2019-03-12 02:01:00 Edionwe, Taina Uni versity of [facility] POCT GLUCOSE (AUTOMATED) 2019-03-11 21:12:00 Edionwe, Taina Uni vers[facility] of [facility] POCT GLUCOSE (AUTOMATED) 2019-03-11 16:28:00 EdionweTaina [facility] POCT GLUCOSE (AUTOMATED) 2019-03-11 12:31:00 Edionwe, Angeliay Uni versity of [facility] BASIC METABOLIC PANEL 2019-03-11 10:46:00 Edionezra [facility] (NA, K, CL, CO2, [facility] GLUCOSE, BUN, CREATININE, CA) CBC WITH DIFFERENTIAL 2019-03-11 10:46:00 Ednancy [facility] GLYCOSYLATED HEMOGLOBIN 2019-03-11 10:46:00 Howard [facility] (A1C) [facility] POCT GLUCOSE (AUTOMATED) 2019-03-11 03:58:00 EdionAngelia munguiay [facility] 2019-03-11 01:25:00 [facility] XR CHEST 1 VW 2019-03-11 01:14:26 [facility] URINALYSIS 2019-03-11 00:51:00 Julita Gonzales [place] [facility] 2019-03-11 00:51:00 [facility] BLOOD CULTURE SCREEN 2019-03-11 00:21:00 Fariba Cantu [facility] BLOOD CULTURE WORKUP 2019-03-11 00:21:00 Fariba Cantu [facility] GRAM NEGATIVE BLOOD 2019-03-11 00:21:00 Fariba Cantu [facility] PATHOGENS DNA [facility] PROBE-AEROBIC EKG-12 LEAD 2019-03-11 00:03:03 [facility] LIPASE 2019-03-11 00:01:00 Julita Gonzales [facility] TROPONIN I 2019-03-11 00:01:00 Julita Gonzales [facility] HEPATIC FUNCTION PANEL 2019-03-11 00:01:00 Julita Gonzales [facility] ([address] (ALB,T.PRO,BILI [facility] Branch T,BU/BC,ALT,AST,ALK PHOS) BASIC METABOLIC PANEL 2019-03-11 00:01:00 Julita oGnzales [facility] (NA, K, CL, CO2, Medical Branch GLUCOSE, BUN, CREATININE, CA) CBC WITH DIFFERENTIAL 2019-03-11 00:01:00 Julita Gonzales [facility] BLOOD CULTURE SCREEN 2019-03-11 00:00:00 Fariba Cantu [facility] BLOOD CULTURE WORKUP 2019-03-11 00:00:00 Fariba Cantu [facility] LACTIC ACID WHOLE BLOOD 2019-03-10 23:59:00 Fariba Cantu [facility] HOSPITAL ADM - MISC 2019-03-10 05:01:00 [facility] Knee Arthroscopy/surgery [facility] Encounters Start End Encounter Admission Attending Care Care Encounter Source Date/Time Date/Time Type Type Clinicians Facility Department ID 2021-05-10 Emergency [facility] [id number] Univers 02:12:44 ity of [facility] 2021-05-09 Emergency [facility] [id number] Univers 22:45:10 ity of [facility] 2021-05-09 Emergency [facility] [id number] Univers 21:07:24 ity of [facility] 2021-04-20 2021-04-20 Orders Doctor FIOR 1.2.840.114 [id number] Univers 00:00:00 00:00:00 Only Unassigned, LALIT 350.1.13.10 ity of [place] [facility] 4.2.7.2.686 Maulik as [phone] [facility] 009 Branch 2021-04-06 2021-04-06 Emergency [facility] 1.2.992.704 [id number] Univers 08:17:00 12:44:00 [facility] 350.1.13.10 [place] [phone] [facility] 014 Branch (CLC) 2021-03-30 2021-03-30 Transition Paco Salas 1.2.840.114 [id number] Univers 00:00:00 00:00:00 of Care Patty Laboy 350.1.13.10 [place] [phone] [facility] 403 Branch 2021-03-23 2021-03-29 [facility] Yuri Dias [place] 1.2.840.1 14 [id number] Univers 10:23:00 14:48:00 Encounter Jad Gavin 350.1.13.10 [place] [phone] [facility] 080 Branch 2021-03-18 2021-03-18 Transition Paco Salas 1.2.840.114 [id number] Univers 00:00:00 00:00:00 of Care Patty Smithy 350.1.13.10 [place] [id number] [facility] 403 Branch 2021-03-16 2021-03-17 Hospital Andriy Pierson 1.2.840. 114 [id number] Univers 10:00:00 19:00:00 Encounter Gemma White 350.1.13.10 ity of [facility] 4.2.7.2.686 Maulik as [phone] [facility] 093 Branch 2021-03-15 2021-03-15 Telephone FIOR Chavez 1.2.939.793 [id number] Univers 00:00:00 00:00:00 Acacia COHN 350.1.13.10 i ty of [facility] 4.2.7.2.686 Maulik as [phone] [facility] [address] 2021-03-15 2021-03-15 Letter FIOR Chavez 1.2.840.114 [id number] Univers 00:00:00 00:00:00 (Out) Acacia COHN 350.1.13.10 i ty of [facility] 4.2.7.2.686 Maulik as [phone] [facility] [address] 2021-03-14 2021-03-14 Laboratory Only, Ang Db Test [facility] 1.2.8 40.114 [id number] Univers 17:45:12 18:00:12 Only Phillip Reynoso 350.1.13.10 ity of [place] 4.2.7.2.686 Maulik as Andreas?Blea [id number] Az yecenia [address] Medical Office Building 2021-03-14 2021-03-14 Outpatient [facility] [id number] -[id number] Univers 18:00:00 18:00:00 [id number] ity of [facility] 2021-03-14 2021-03-14 Outpatient R ANGELES [facility] [id number] Univers 18:00:00 18:00:00 PHILLIP tilley [facility] 2021-01-22 2021-01-22 Tooth Clerk Marino Neely Lab Main [facility] 1.2.8 40.114 [id number] Univers 10:14:09 10:29:09 Visit LesleyLindsey samano 350.1.13.10 [place] [phone] Az dical nal [facility] 2021-01-22 2021-01-22 Outpatient R [facility] [id number] -[id number] Univers 10:15:00 10:15:00 [id number] ity [facility] 2021-01-22 2021-01-22 [facility] [id number] Univers 10:15:00 10:15:00 LINDSEY ity [facility] 2021-01-22 2021-01-22 Orders Doctor FIOR 1.2.840.114 [id number] Univers 00:00:00 00:00:00 Only Unassigned, LALIT 350.1.13.10 ity of [place] [facility] 4.2.7.2.686 Maulik as [phone] [address] 2020-12-29 2020-12-29 Outpatient [facility] [phone] [facility] 11:46:00 11:46:00 _A_AH 04055 Family Practic e 2020-10-18 2020-10-18 [facility] [id number] Univers 15:30:00 15:30:00 JENNIFER [facility] 2020-09-27 2020-09-27 [facility] [id number] Univers 15:20:00 15:20:00 JENNIFER [facility] 2020-09-10 2020-09-10 Tooth Clerk Florinda, Adc Lab Main [facility] 1.2.8 40.114 [id number] Univers 15:12:10 15:27:10 Visit LesleyLindsey samano 350.1.13.10 [place] [phone] Az dic[address] 2020-09-10 2020-09-10 Outpatient R [facility] [id number] -[id number] Univers 14:30:00 14:30:00 [id number] ity [facility] 2020-09-10 2020-09-10 Outpatient R WESLEY, [facility] [id number] Univers 14:30:00 14:30:00 LINDSEY ity [facility] 2020-09-10 2020-09-10 Orders Doctor FIOR 1.2.840.114 [id number] Univers 00:00:00 00:00:00 Only Unassigned, LALIT 350.1.13.10 ity of [place] [facility] 4.2.7.2.686 Maulik as [phone] [facility] 009 Branch 2020-07-31 2020-07-31 Patient Alphonso [facility] 1.2.840.114 [id number] Univers 00:00:00 00:00:00 Outreach Felix PRIMARY 350.1.13.10 i ty of [facility] [place]2.[place] [phone] Az dical [address] 2020-05-31 2020-05-31 [facility] [phone] [facility] 09:07:00 09:07:00 _A_ 29217 Family Practic e 2020-05-21 2020-05-21 Zully [facility] [place] - [id number] V illage 00:00:00 00:00:00 [facility] 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 2020-05-04 2020-05-04 Hospital Perla, [facility] 1.2.165.887 [id number] Univers 12:42:13 23:59:00 Encounter Attending Maximo 350.1.13.10 ity of [place] [phone] [facility] 804 Branch 2020-05-04 2020-05-04 Outpatient R [facility] [id number] Univers 13:00:00 13:00:00 [id number] ity of [facility] 2020-05-04 2020-05-04 Outpatient R [facility] [id number] Univers 00:00:00 00:00:00 ity of [facility] 2020-04-12 2020-04-12 Outpatient Skinny-Mbayo VFP VFP [id number] [facility] 01:39:00 01:39:00 _A_AH 15290 Family Practic e 2020-04-07 2020-04-07 Outpatient R [facility] [id number] -[id number] Univers 00:00:00 00:00:00 [facility] 2020-04-05 2020-04-05 Outpatient R CHERYL, [facility] [id number] Univers 13:45:00 13:45:00 JAIDEN [id number] [facility] 2020-04-05 2020-04-05 Outpatient R CHERYL, [facility] [id number] Univers 13:45:00 13:45:00 JAIDEN [facility] 2020-03-31 2020-03-31 Outpatient [facility] [id number] Univers 14:00:00 14:00:00 [id number] [facility] 2020-03-26 2020-03-26 Outpatient Skinny-Mbayo [facility]FP [facility] [address] [place] [address] 09:11:00 09:11:00 _A_AH 17437 Family Practic e 2020-03-22 2020-03-22 Zully VFP [place] - [id number] V illage 00:00:00 00:00:00 [facility] 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 2020-01-06 2020-01-06 Outpatient Skinny-Mbayo VFP VFP [id number] [facility] 06:59:00 06:59:00 _A_AH 04297 Family Practic e 2020-01-05 2020-01-05 Outpatient Skinny-Mbayo [facility]FP [facility]FP [address] 11:05:00 11:05:00 _A_AH 77984 Family Practic e 2019-12-23 2019-12-23 Outpatient Skinny-Mbayo VFP VFP 791 [id number] [facility] 09:02:00 09:02:00 _A_AH 21438 Family Practic e 2019-12-23 2019-12-23 Outpatient Skinny-Mbayo VFP VFP 791 [id number] [facility] 09:02:00 09:02:00 _A_AH 68362 Family Practic e 2019-12-18 2019-12-18 Zully VFP [place] - [id number] V illage 00:00:00 00:00:00 [place] 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 2019-08-27 2019-08-27 Outpatient Skinny-Mbayo [facility]FP [facility]FP [address] 07:12:00 07:12:00 _A_AH 91814 Family Practic e 2019-08-14 2019-08-14 Office Fabrice Ray [facility] 1.2.840.114 [id number] Univers 10:41:59 10:56:59 Visit Jaiden Luna [facility] 350.1.13.10 ity of Surgical 4.2.7.2.686 Maulik as Specialti [id number] Az dical es [address] Maximo 2019-08-11 2019-08-11 Hospital Cheryl [place] 1.2.840.114 [id number] Univers 11:30:00 23:59:00 Encounter Jaiden David Maximo 350.1.13.10 it[place] of [place] [id number] [facility] 807 Branch 2019-08-05 2019-08-05 Telephone Cheryl [place] 1.2.840.114 [id number] Univers 00:00:00 00:00:00 Jaiden [facility] 350.1.13.10 it y of Surgical 4.2.7.2.686 Maulik as Specialti [phone] Az dical es 198 [facility] 2019-07-31 2019-07-31 Orders Doctor FIOR 1.2.840.114 [id number] Univers 00:00:00 00:00:00 Only Unassigned, LALIT 350.1.13.10 ity of [place] [facility] 4.2.7.2.686 Maulik as [id number] [facility] [address] 2019-07-03 2019-07-03 Orders Doctor FIOR 1.2.840.114 [id number] Univers 00:00:00 00:00:00 Only Unassigned, LALIT 350.1.13.10 ity of [place] [facility] 4.2.7.2.686 Maulik as [phone] [facility] [address] 2019-06-22 2019-06-22 Emergency X CHRISTIAN [facility] ERT [id number] Univers 09:39:07 12:04:00 JULITA ity of [facility] 2019-03-19 2019-03-19 Transition Paco Perez 1.2.840.114 [id number] Univers 00:00:00 00:00:00 of Care Kayleen Smithy 350.1.13.10 it y of [place] [phone] [facility] 403 [address] 2019-03-10 2019-03-18 Hospital Fariba Cantu [place] 1.2.840.1 14 [id number] Univers 18:29:13 16:20:00 Encounter Taina Castro Maximo 350.1.13.10 ity of [place] [phone] [facility] [address] Results Test Description Test Time Test Comments Results Result Comments Source Type and Screen - ONCE Routine 2021-04-06 14:01:27 Test Item Value Reference Range Interpretation Comme nts ABO & RH (test code = 20) A Positive Pe rformed at [facility] Blood [address] [place], [place] [address]Xgta Free: [phone] No. [id number] IAT (test code = 1185) Negative Perfo rmed at [facility] Blood [address] [place], [place] [address]Wxxw Free: [phone] No. [id number] [place] [facility] / [id number] 13:58:55 Test Item Value Reference Range Interpretation Comments PROTIME PATIENT (test See_Comment H [Auto mated message] code = 5964-2) The system [employer] generated this result transmitted ref erence range: 10.1 - 1 2.6 Seconds. The reference range was not used to int erpret this result as normal/abnormal . INR (test code = 6301-6) Nor mal INR <1.1; Warfarin Therap eutic range 2.0 to 3. 0 or 2.5 to 3.5, dep ending upon the indica tions. Lab Interpretation (test Abnormal code = 42612-2) [facility] METABOLIC PANEL (11432)2021-04-06 13:30:35 Test Item Value Reference Range Interpretation Comments NA (test code = 132 mmol/L 135-145 L 6440573767) K (test code = 5.0 mmol/L 3.5-5.0 8908800129) CL (test code = 92 mmol/L 98-108 L 5548753894) CO2 TOTAL (test code = 33 mmol/L 23-31 H 4032722195) AGAP (test code = 2-16 9856900275) BUN (test code = 29 mg/dL 7-23 H 6491445504) GLUCOSE (test code = 156 mg/dL 70-110 H 0839292929) CREATININE (test code = 0.69 mg/dL 0.50-1.04 3486187629) TOTAL BILI (test code = 0.6 mg/dL 0.1-1.3 2185566786) CALCIUM (test code = 9.2 mg/dL 8.6-10.6 3747641021) T PROTEIN (test code = 6.8 g/dL 6.3-8.2 6409499662) ALBUMIN (test code = 3.8 g/dL 3.5-5.0 9367469404) ALK PHOS (test code = 120 U/L 34-122 1884769947) ALTv (test code = 19 U/L 5-35 1742-6) AST(SGOT) (test code = 23 U/L 13-40 0546534423) eGFR (test code = mL/min/1.73m2 6740511865) KENA (test code = KENA) Association of [...] tests). Lab Interpretation Abnormal (test code = 90260-3) [facility] WITH [id number] 13:21:51 Test Item Value Reference Range Interpretation [...] RDW-SD (test code = 45.9 fL 39.0-49.9 24016-4) RDW-CV (test code = 14.7 % 12.0-15.5 788-0) PLT (test code = See_Comment [Automated 777-3) message] The sy stem which generated this result transmitted reference range : 166 - 358 10*3/ ?L. The reference r ilan was not used to interpret this result as normal/abnormal . MPV (test code = 10.8 fL 9.5-12.9 49044-8) NRBC/100 WBC (test See_Comment [Automat ed code = 4007334365) message] The system which generated this result transmitted reference range : 0.0 - 10.0 /100 WBCs. The refer ence range was not u sed to interpret th is result as normal/abnormal . NRBC x10^3 (test code <0.01 See_Comment [Auto mated = 3839058922) message] The s ystem which generated this result transmitted reference range : 10*3/?L. The reference range was not used to interpret this result as normal/abnormal . GRAN MAT (NEUT) % 60.7 % (test code = 770-8) IMM GRAN % (test code 1.00 % = 3810247365) LYMPH % (test code = 11.8 % 736-9) MONO % (test code = 11.2 % 5905-5) EOS % (test code = 14.9 % 713-8) BASO % (test code = 0.4 % 706-2) GRAN MAT x10^3(ANC) 3.09 10*3/uL 1.88-7.09 (test code = 6634716674) IMM GRAN x10^3 (test 0.05 10*3/uL 0.00-0.06 code = 0299358776) LYMPH x10^3 (test code 0.60 10*3/uL 1.32-3.29 L = 731-0) MONO x10^3 (test code 0.57 10*3/uL 0.33-0.92 = 742-7) EOS x10^3 (test code = 0.76 10*3/uL 0.03-0.39 H 711-2) BASO x10^3 (test code <0.03 0.01-0.07 = 704-7) Lab Interpretation Abnormal (test code = 59166-0) [facility] GLUCOSE (AUTOMATED)2021-03-29 17:01:45 Test Item Value Reference Range Interpretation Comments POCT GLU (test code = 6626372863) 199 mg/dL 70-110 H Lab Interpretation (test code = Abnormal 53693-4) [facility] GLUCOSE (AUTOMATED)2021-03-29 17:01:45 Test Item Value Reference Range Interpretation Comments POCT GLU (test code = 4581034791) 199 mg/dL 70-110 H Lab Interpretation (test code = Abnormal 03728-2) [facility], SERUM OR [id number] 15:24:42 Test Item Value Reference Range Interpretation Comments OSMOLALITY (test code = See_Comment [Au tomated message] 0072979075) The system Written generated this result transmitted ref erence range: 278 - 30 5 mOsm/kg. The re ference range was not u sed to interpret this result as normal/abnor mal. Lab Interpretation (test Normal code = 77863-2) [facility]OLAL[facility], SERUM OR [id number] 15:24:42 Test Item Value Reference Range Interpretation Comments OSMOLALITY (test code = See_Comment [Au tomated message] 7580557873) The system Written generated this result transmitted ref erence range: 278 - 30 5 mOsm/kg. The re ference range was not u sed to interpret this result as normal/abnor mal. Lab Interpretation (test Normal code = 10316-2) [facility] GLUCOSE (AUTOMATED)2021-03-29 13:38:41 Test Item Value Reference Range Interpretation Comments POCT GLU (test code = 5208537655) 170 mg/dL 70-110 H Lab Interpretation (test code = Abnormal 47325-3) [facility] GLUCOSE (AUTOMATED)2021-03-29 13:38:41 Test Item Value Reference Range Interpretation Comments POCT GLU (test code = 2603082683) 170 mg/dL 70-110 H Lab Interpretation (test code = Abnormal 06317-7) [facility]57 Test Item Value Reference Range Interpretation Comments MAGNESIUM (test code = 6735506632) 1.5 mg/dL 1.7-2.4 L Lab Interpretation (test code = Abnormal 31488-7) [facility] 11:20:57 Test Item Value Reference Range Interpretation Comments MAGNESIUM (test code = 1903189039) 1.5 mg/dL 1.7-2.4 L Lab Interpretation (test code = Abnormal 27631-1) [facility]. METABOLIC PANEL (95415)2021-03-29 11:20:42 Test Item Value Reference Range Interpretation Comments NA (test code = 131 mmol/L 135-145 L 2221656971) K (test code = 4.2 mmol/L 3.5-5.0 4608247890) CL (test code = 95 mmol/L 98-108 L 4237560642) CO2 TOTAL (test code = 29 mmol/L 23-31 2768330685) AGAP (test code = 2-16 7403176585) BUN (test code = 21 mg/dL 7-23 6804989795) GLUCOSE (test code = 200 mg/dL 70-110 H 1950296751) CREATININE (test code = 0.79 mg/dL 0.50-1.04 3240460108) TOTAL BILI (test code = 0.5 mg/dL 0.1-1.7 3455970727) CALCIUM (test code = 8.6 mg/dL 8.6-10.6 6237195876) T PROTEIN (test code = 6.2 g/dL 6.3-8.2 L 0515962376) ALBUMIN (test code = 3.1 g/dL 3.5-5.0 L 6855235230) ALK PHOS (test code = 112 U/L 34-122 3266990858) ALTv (test code = 14 U/L 5-35 1742-6) AST(SGOT) (test code = 17 U/L 13-40 0430714951) eGFR (test code = mL/min/1.73m2 3993413334) KENA (test code = KENA) Association of [...] tests). Lab Interpretation Abnormal (test code = 22633-9) [facility]2021-[facility]-21 11:20:42 Test Item Value Reference Range Interpretation Comments PHOSPHORUS (test code = 7288555510) 3.6 mg/dL 2.5-5.0 Lab Interpretation (test code = Normal 84837-8) [facility]OL[facility] PANEL (76759)2021-03-29 11:20:42 Test Item Value Reference Range Interpretation Comments NA (test code = 131 mmol/L 135-145 L 8278116560) K (test code = 4.2 mmol/L 3.5-5.0 8185867185) CL (test code = 95 mmol/L 98-108 L 6606758577) CO2 TOTAL (test code = 29 mmol/L 23-31 6243486679) AGAP (test code = 2-16 7271874596) BUN (test code = 21 mg/dL 7-23 4847202010) GLUCOSE (test code = 200 mg/dL 70-110 H 3761084915) CREATININE (test code = 0.79 mg/dL 0.50-1.04 4242510054) TOTAL BILI (test code = 0.5 mg/dL 0.1-1.5 2240285245) CALCIUM (test code = 8.6 mg/dL 8.6-10.6 2495809144) T PROTEIN (test code = 6.2 g/dL 6.3-8.2 L 2412533461) ALBUMIN (test code = 3.1 g/dL 3.5-5.0 L 2066580919) ALK PHOS (test code = 112 U/L 34-122 7041038655) ALTv (test code = 14 U/L 5-35 1742-6) AST(SGOT) (test code = 17 U/L 13-40 4039637318) eGFR (test code = mL/min/1.73m2 9774989566) KENA (test code = KENA) Association of [...] tests). Lab Interpretation Abnormal (test code = 33149-0) [facility]2021-[facility]-21 11:20:42 Test Item Value Reference Range Interpretation Comments PHOSPHORUS (test code = 0479686726) 3.6 mg/dL 2.5-5.0 Lab Interpretation (test code = Normal 79147-4) [facility] [id number] 11:20:41 Test Item Value Reference Range Interpretation Comments URIC ACID (test code = 4530895027) 3.6 mg/dL 2.9-6.0 Lab Interpretation (test code = Normal 62720-8) [facility] [id number] 11:20:41 Test Item Value Reference Range Interpretation Comments URIC ACID (test code = 3401544028) 3.6 mg/dL 2.9-6.0 Lab Interpretation (test code = Normal 31555-8) [facility] GLUCOSE (AUTOMATED)2021-03-29 01:28:01 Test Item Value Reference Range Interpretation Comments POCT GLU (test code = 3549472981) 170 mg/dL 70-110 H Lab Interpretation (test code = Abnormal 19536-4) [facility] GLUCOSE (AUTOMATED)2021-03-29 01:28:01 Test Item Value Reference Range Interpretation Comments POCT GLU (test code = 3062427595) 170 mg/dL 70-110 H Lab Interpretation (test code = Abnormal 16303-2) [facility] GLUCOSE (AUTOMATED)2021-03-28 21:52:00 Test Item Value Reference Range Interpretation Comments POCT GLU (test code = 5531018996) 215 mg/dL 70-110 H Lab Interpretation (test code = Abnormal 42760-4) [facility] GLUCOSE (AUTOMATED)2021-03-28 21:52:00 Test Item Value Reference Range Interpretation Comments POCT GLU (test code = 3123463426) 215 mg/dL 70-110 H Lab Interpretation (test code = Abnormal 14802-2) [facility] GLUCOSE (AUTOMATED)2021-03-28 16:45:57 Test Item Value Reference Range Interpretation Comments POCT GLU (test code = 3507734831) 244 mg/dL 70-110 H Lab Interpretation (test code = Abnormal 51588-7) [facility] GLUCOSE (AUTOMATED)2021-03-28 16:45:57 Test Item Value Reference Range Interpretation Comments POCT GLU (test code = 0465995423) 244 mg/dL 70-110 H Lab Interpretation (test code = Abnormal 63462-2) [facility] GLUCOSE (AUTOMATED)2021-03-28 12:31:07 Test Item Value Reference Range Interpretation Comments POCT GLU (test code = 8672834555) 176 mg/dL 70-110 H Lab Interpretation (test code = Abnormal 06539-7) [facility] GLUCOSE (AUTOMATED)2021-03-28 12:31:07 Test Item Value Reference Range Interpretation Comments POCT GLU (test code = 6032881032) 176 mg/dL 70-110 H Lab Interpretation (test code = Abnormal 29569-0) [facility] METABOLIC PANEL (NA, K, CL, CO2, GLUCOSE, BUN, CREATININE, CA)2021-03-28 12:03:59 Test Item Value Reference Range Interpretation Comments NA (test code = 128 mmol/L 135-145 L 4778097502) K (test code = 4.4 mmol/L 3.5-5.0 1486041057) CL (test code = 92 mmol/L 98-108 L 5501691608) CO2 TOTAL (test code = 29 mmol/L 23-31 7287410805) AGAP (test code = 2-16 [id number]) BUN (test code = 22 mg/dL 7-23 8212365551) GLUCOSE (test code = 166 mg/dL 70-110 H [id number]) CREATININE (test code = 0.72 mg/dL 0.50-1.04 8515630432) CALCIUM (test code = 8.9 mg/dL 8.6-10.6 6548781998) eGFR (test code = mL/min/1.73m2 8797239722) KENA (test code = KENA) Association of [...] tests). Lab Interpretation Abnormal (test code = 56792-9) [facility] METABOLIC PANEL (NA, K, CL, CO2, GLUCOSE, BUN, CREATININE, CA)2021-03-28 12:03:59 Test Item Value Reference Range Interpretation Comments NA (test code = 128 mmol/L 135-145 L [id number]) K (test code = 4.4 mmol/L 3.5-5.0 5952848322) CL (test code = 92 mmol/L 98-108 L 6658471485) CO2 TOTAL (test code = 29 mmol/L 23-31 8810577343) AGAP (test code = 2-16 9094457620) BUN (test code = 22 mg/dL 7-23 9503365767) GLUCOSE (test code = 166 mg/dL 70-110 H 5524843175) CREATININE (test code = 0.72 mg/dL 0.50-1.04 [id number]) CALCIUM (test code = 8.9 mg/dL 8.6-10.6 2197450999) eGFR (test code = mL/min/1.73m2 2988059948) KENA (test code = KENA) Association of [...] tests). Lab Interpretation Abnormal (test code = 36079-1) [facility] WITH [id number] 11:35:36 Test Item Value Reference Range Interpretation [...] RDW-SD (test code = 44.0 fL 39.0-49.9 22981-1) RDW-CV (test code = 14.4 % 12.0-15.5 788-0) PLT (test code = See_Comment [Automated 777-3) message] The sy stem which generated this result transmitted reference range : 166 - 358 10*3/ ?L. The reference r ilan was not used to interpret this result as normal/abnormal . MPV (test code = 11.8 fL 9.5-12.9 94403-3) NRBC/100 WBC (test See_Comment [Automat ed code = 2993073758) message] The system which generated this result transmitted reference range : 0.0 - 10.0 /100 WBCs. The refer ence range was not u sed to interpret th is result as normal/abnormal . NRBC x10^3 (test code <0.01 See_Comment [Auto mated = 9450711779) message] The s ystem which generated this result transmitted reference range : 10*3/?L. The reference range was not used to interpret this result as normal/abnormal . GRAN MAT (NEUT) % 77.3 % (test code = 770-8) IMM GRAN % (test code 1.10 % = 6138176478) LYMPH % (test code = 6.7 % 736-9) MONO % (test code = 10.5 % 5905-5) EOS % (test code = 4.1 % 713-8) BASO % (test code = 0.3 % 706-2) GRAN MAT x10^3(ANC) 5.09 10*3/uL 1.88-7.09 (test code = 4031251549) IMM GRAN x10^3 (test 0.07 10*3/uL 0.00-0.06 H code = 5056788240) LYMPH x10^3 (test code 0.44 10*3/uL 1.32-3.29 L = 731-0) MONO x10^3 (test code 0.69 10*3/uL 0.33-0.92 = 742-7) EOS x10^3 (test code = 0.27 10*3/uL 0.03-0.39 711-2) BASO x10^3 (test code <0.03 0.01-0.07 = 704-7) Lab Interpretation Abnormal (test code = 29193-2) [facility] WITH [id number] 11:35:36 Test Item Value Reference Range Interpretation Comments WBC (test code = See_Comment [Automated 1190-2) message] The sy stem which generated this result transmitted reference range : 4.30 - 11.10 10*3/?L. The reference range was not used to interpret this result as normal/abnormal . RBC (test code = See_Comment [Automated 919-8) message] The sy stem which generated this [...] RDW-SD (test code = 44.0 fL 39.0-49.9 18180-9) RDW-CV (test code = 14.4 % 12.0-15.5 788-0) PLT (test code = See_Comment [Automated 777-3) message] The sy stem which generated this result transmitted reference range : 166 - 358 10*3/ ?L. The reference r ilan was not used to interpret this result as normal/abnormal . MPV (test code = 11.8 fL 9.5-12.9 17980-6) NRBC/100 WBC (test See_Comment [Automat ed code = 0192608170) message] The system which generated this result transmitted reference range : 0.0 - 10.0 /100 WBCs. The refer ence range was not u sed to interpret th is result as normal/abnormal . NRBC x10^3 (test code <0.01 See_Comment [Auto mated = 1704076708) message] The s ystem which generated this result transmitted reference range : 10*3/?L. The reference range was not used to interpret this result as normal/abnormal . GRAN MAT (NEUT) % 77.3 % (test code = 770-8) IMM GRAN % (test code 1.10 % = 0176335955) LYMPH % (test code = 6.7 % 736-9) MONO % (test code = 10.5 % 5905-5) EOS % (test code = 4.1 % 713-8) BASO % (test code = 0.3 % 706-2) GRAN MAT x10^3(ANC) 5.09 10*3/uL 1.88-7.09 (test code = 5839792351) IMM GRAN x10^3 (test 0.07 10*3/uL 0.00-0.06 H code = 3300941571) LYMPH x10^3 (test code 0.44 10*3/uL 1.32-3.29 L = 731-0) MONO x10^3 (test code 0.69 10*3/uL 0.33-0.92 = 742-7) EOS x10^3 (test code = 0.27 10*3/uL 0.03-0.39 711-2) BASO x10^3 (test code <0.03 0.01-0.07 = 704-7) Lab Interpretation Abnormal (test code = 20699-2) [facility] GLUCOSE (AUTOMATED)2021-03-28 02:02:37 Test Item Value Reference Range Interpretation Comments POCT GLU (test code = 4438538303) 181 mg/dL 70-110 H Lab Interpretation (test code = Abnormal 79788-9) [facility] GLUCOSE (AUTOMATED)2021-03-28 02:02:37 Test Item Value Reference Range Interpretation Comments POCT GLU (test code = 0165044654) 181 mg/dL 70-110 H Lab Interpretation (test code = Abnormal 98015-8) [facility] GLUCOSE (AUTOMATED)2021-03-27 23:16:42 Test Item Value Reference Range Interpretation Comments POCT GLU (test code = 6370606227) 304 mg/dL 70-110 H Lab Interpretation (test code = Abnormal 16652-2) [facility] GLUCOSE (AUTOMATED)2021-03-27 23:16:42 Test Item Value Reference Range Interpretation Comments POCT GLU (test code = 1827717960) 304 mg/dL 70-110 H Lab Interpretation (test code = Abnormal 29889-7) [facility] GLUCOSE (AUTOMATED)2021-03-27 19:16:32 Test Item Value Reference Range Interpretation Comments POCT GLU (test code = 5436846934) 132 mg/dL 70-110 H Lab Interpretation (test code = Abnormal 68771-8) [facility] GLUCOSE (AUTOMATED)2021-03-27 19:16:32 Test Item Value Reference Range Interpretation Comments POCT GLU (test code = 5952168678) 132 mg/dL 70-110 H Lab Interpretation (test code = Abnormal 45894-3) [facility] GLUCOSE (AUTOMATED)2021-03-27 13:16:16 Test Item Value Reference Range Interpretation Comments POCT GLU (test code = 8111738815) 198 mg/dL 70-110 H Lab Interpretation (test code = Abnormal 16985-5[facility] 13:16:16 Test Item Value Reference Range Interpretation Comments POCT GLU (test code = 5666284009) 198 mg/dL 70-110 H Lab Interpretation (test code = Abnormal 74729-9) [facility] METABOLIC PANEL (NA, K, CL, CO2, GLUCOSE, BUN, CREATININE, CA)2021-03-27 12:53:08 Test Item Value Reference Range Interpretation Comments NA (test code = 129 mmol/L 135-145 L 8983791527) K (test code = 4.4 mmol/L 3.5-5.0 6190968588) CL (test code = 91 mmol/L 98-108 L 8190105852) CO2 TOTAL (test code = 33 mmol/L 23-31 H 6309645754) AGAP (test code = 2-16 9086590076) BUN (test code = 22 mg/dL 7-23 8191271172) GLUCOSE (test code = 197 mg/dL 70-110 H 5114906434) CREATININE (test code = 0.79 mg/dL 0.50-1.04 7629523632) CALCIUM (test code = 8.9 mg/dL 8.6-10.6 1508276642) eGFR (test code = mL/min/1.73m2 0700206781) KENA (test code = KENA) Association of [...] tests). Lab Interpretation Abnormal (test code = 67781-3) [facility] METABOLIC PANEL (NA, K, CL, CO2, GLUCOSE, BUN, CREATININE, CA)2021-03-27 12:53:08 Test Item Value Reference Range Interpretation Comments NA (test code = 129 mmol/L 135-145 L 4738342329) K (test code = 4.4 mmol/L 3.5-5.0 0227046624) CL (test code = 91 mmol/L 98-108 L 3421833628) CO2 TOTAL (test code = 33 mmol/L 23-31 H 6063161424) AGAP (test code = 2-16 4625749354) BUN (test code = 22 mg/dL 7-23 7368818063) GLUCOSE (test code = 197 mg/dL 70-110 H 6746953913) CREATININE (test code = 0.79 mg/dL 0.50-1.04 0567529122) CALCIUM (test code = 8.9 mg/dL 8.6-10.6 3724300915) eGFR (test code = mL/min/1.73m2 3224067420) KENA (test code = KENA) Association of [...] tests). Lab Interpretation Abnormal (test code = 04263-0) [facility] WITH [id number] 12:23:50 Test Item Value Reference Range Interpretation Comments WBC (test code = See_Comment [Automated 2742-2) message] The sy stem which generated this result transmitted reference range : 4.30 - 11.10 10*3/?L. The reference range was not used to interpret this result as normal/abnormal . RBC (test code = See_Comment [Automated 619-8) message] The sy stem which generated this [...] RDW-SD (test code = 44.0 fL 39.0-49.9 96509-1) RDW-CV (test code = 14.2 % 12.0-15.5 788-0) PLT (test code = See_Comment [Automated 365-3) message] The sy stem which generated this result transmitted reference range : 166 - 358 10*3/ ?L. The reference r ilan was not used to interpret this result as normal/abnormal . MPV (test code = 11.4 fL 9.5-12.9 41228-8) NRBC/100 WBC (test See_Comment [Automat ed code = 1882016111) message] The system which generated this result transmitted reference range : 0.0 - 10.0 /100 WBCs. The refer ence range was not u sed to interpret th is result as normal/abnormal . NRBC x10^3 (test code <0.01 See_Comment [Auto mated = 4484826180) message] The s ystem which generated this result transmitted reference range : 10*3/?L. The reference range was not used to interpret this result as normal/abnormal . GRAN MAT (NEUT) % 77.0 % (test code = 770-8) IMM GRAN % (test code 1.80 % = 0633750639) LYMPH % (test code = 6.6 % 736-9) MONO % (test code = 9.9 % 5905-5) EOS % (test code = 4.4 % 713-8) BASO % (test code = 0.3 % 706-2) GRAN MAT x10^3(ANC) 4.77 10*3/uL 1.88-7.09 (test code = 3368085931) IMM GRAN x10^3 (test 0.11 10*3/uL 0.00-0.06 H code = 1220556020) LYMPH x10^3 (test code 0.41 10*3/uL 1.32-3.29 L = 731-0) MONO x10^3 (test code 0.61 10*3/uL 0.33-0.92 = 742-7) EOS x10^3 (test code = 0.27 10*3/uL 0.03-0.39 711-2) BASO x10^3 (test code <0.03 0.01-0.07 = 704-7) Lab Interpretation Abnormal (test code = 55556-3) [facility] WITH [id number] 12:23:50 Test Item Value Reference Range Interpretation [...] RDW-SD (test code = 44.0 fL 39.0-49.9 15220-3) RDW-CV (test code = 14.2 % 12.0-15.5 788-0) PLT (test code = See_Comment [Automated 777-3) message] The sy stem which generated this result transmitted reference range : 166 - 358 10*3/ ?L. The reference r ilan was not used to interpret this result as normal/abnormal . MPV (test code = 11.4 fL 9.5-12.9 23167-9) NRBC/100 WBC (test See_Comment [Automat ed code = 2946148589) message] The system which generated this result transmitted reference range : 0.0 - 10.0 /100 WBCs. The refer ence range was not u sed to interpret th is result as normal/abnormal . NRBC x10^3 (test code <0.01 See_Comment [Auto mated = 1924124445) message] The s ystem which generated this result transmitted reference range : 10*3/?L. The reference range was not used to interpret this result as normal/abnormal . GRAN MAT (NEUT) % 77.0 % (test code = 770-8) IMM GRAN % (test code 1.80 % = 1752661937) LYMPH % (test code = 6.6 % 736-9) MONO % (test code = 9.9 % 5905-5) EOS % (test code = 4.4 % 713-8) BASO % (test code = 0.3 % 706-2) GRAN MAT x10^3(ANC) 4.77 10*3/uL 1.88-7.09 (test code = 4857816456) IMM GRAN x10^3 (test 0.11 10*3/uL 0.00-0.06 H code = 3964492794) LYMPH x10^3 (test code 0.41 10*3/uL 1.32-3.29 L = 731-0) MONO x10^3 (test code 0.61 10*3/uL 0.33-0.92 = 742-7) EOS x10^3 (test code = 0.27 10*3/uL 0.03-0.39 711-2) BASO x10^3 (test code <0.03 0.01-0.07 = 704-7) Lab Interpretation Abnormal (test code = 03062-1) [facility] GLUCOSE (AUTOMATED)2021-03-27 11:45:51 Test Item Value Reference Range Interpretation Comments POCT GLU (test code = 212 mg/dL 70-110 H Notifi ed Provider 8804480564) Lab Interpretation (test Abnormal code = 44309-8) [facility] GLUCOSE (AUTOMATED)2021-03-27 11:45:51 Test Item Value Reference Range Interpretation Comments POCT GLU (test code = 212 mg/dL 70-110 H Notifi ed Provider 3416194439) Lab Interpretation (test Abnormal code = 24243-8) [facility] GLUCOSE (AUTOMATED)2021-03-26 23:44:19 Test Item Value Reference Range Interpretation Comments POCT GLU (test code = 6591012823) 234 mg/dL 70-110 H Lab Interpretation (test code = Abnormal 77817-7) [facility] GLUCOSE (AUTOMATED)2021-03-26 23:44:19 Test Item Value Reference Range Interpretation Comments POCT GLU (test code = 3010596310) 234 mg/dL 70-110 H Lab Interpretation (test code = Abnormal 57800-5) [facility] GLUCOSE (AUTOMATED)2021-03-26 22:48:08 Test Item Value Reference Range Interpretation Comments POCT GLU (test code = 7554718358) 225 mg/dL 70-110 H Lab Interpretation (test code = Abnormal 42402-2) [facility] 22:48:08 Test Item Value Reference Range Interpretation Comments POCT GLU (test code = 3835053655) 225 mg/dL 70-110 H Lab Interpretation (test code = Abnormal 03090-2) [facility] GLUCOSE (AUTOMATED)2021-03-26 17:15:22 Test Item Value Reference Range Interpretation Comments POCT GLU (test code = 2638865218) 189 mg/dL 70-110 H Lab Interpretation (test code = Abnormal 73981-1) [facility] GLUCOSE (AUTOMATED)2021-03-26 17:15:22 Test Item Value Reference Range Interpretation Comments POCT GLU (test code = 5490280990) 189 mg/dL 70-110 H Lab Interpretation (test code = Abnormal 27489-3) [facility] GLUCOSE (AUTOMATED)2021-03-26 13:14:34 Test Item Value Reference Range Interpretation Comments POCT GLU (test code = 3475476099) 187 mg/dL 70-110 H Lab Interpretation (test code = Abnormal 31977-8) [facility] GLUCOSE (AUTOMATED)2021-03-26 13:14:34 Test Item Value Reference Range Interpretation Comments POCT GLU (test code = 8166753381) 187 mg/dL 70-110 H Lab Interpretation (test code = Abnormal 81992-3) [facility] GLUCOSE (AUTOMATED)2021-03-25 22:03:35 Test Item Value Reference Range Interpretation Comments POCT GLU (test code = 9530424774) 161 mg/dL 70-110 H Lab Interpretation (test code = Abnormal 98603-6[facility]:03:35 Test Item Value Reference Range Interpretation Comments POCT GLU (test code = 5662437094) 161 mg/dL 70-110 H Lab Interpretation (test code = Abnormal 43594-1) [facility] GLUCOSE (AUTOMATED)2021-03-25 16:12:14 Test Item Value Reference Range Interpretation Comments POCT GLU (test code = 9984163495) 182 mg/dL 70-110 H Lab Interpretation (test code = Abnormal 56742-4) [facility] GLUCOSE (AUTOMATED)2021-03-25 16:12:14 Test Item Value Reference Range Interpretation Comments POCT GLU (test code = 6918388442) 182 mg/dL 70-110 H Lab Interpretation (test code = Abnormal 83482-7) [facility] GLUCOSE (AUTOMATED)2021-03-25 13:37:16 Test Item Value Reference Range Interpretation Comments POCT GLU (test code = 7521613958) 140 mg/dL 70-110 H Lab Interpretation (test code = Abnormal 12097-4) [facility] GLUCOSE (AUTOMATED)2021-03-25 13:37:16 Test Item Value Reference Range Interpretation Comments POCT GLU (test code = 8464264347) 140 mg/dL 70-110 H Lab Interpretation (test code = Abnormal 89153-1) [facility] METABOLIC PANEL (NA, K, CL, CO2, GLUCOSE, BUN, CREATININE, CA)2021-03-25 11:51:11 Test Item Value Reference Range Interpretation Comments NA (test code = 130 mmol/L 135-145 L 1115414571) K (test code = 4.3 mmol/L 3.5-5.0 6029378607) CL (test code = 93 mmol/L 98-108 L 4216990457) CO2 TOTAL (test code = 31 mmol/L 23-31 8206883200) AGAP (test code = 2-16 3703302311) BUN (test code = 25 mg/dL 7-23 H 0882915515) GLUCOSE (test code = 141 mg/dL 70-110 H 8607032417) CREATININE (test code = 0.80 mg/dL 0.50-1.04 9135474672) CALCIUM (test code = 8.9 mg/dL 8.6-10.6 6324772459) eGFR (test code = mL/min/1.73m2 4309557254) KENA (test code = KENA) Association of [...] tests). Lab Interpretation Abnormal (test code = 16845-9) [facility] METABOLIC PANEL (NA, K, CL, CO2, GLUCOSE, BUN, CREATININE, CA)2021-03-25 11:51:11 Test Item Value Reference Range Interpretation Comments NA (test code = 130 mmol/L 135-145 L 7355675317) K (test code = 4.3 mmol/L 3.5-5.0 7402640923) CL (test code = 93 mmol/L 98-108 L 1474990391) CO2 TOTAL (test code = 31 mmol/L 23-31 8204296173) AGAP (test code = 2-16 2488102677) BUN (test code = 25 mg/dL 7-23 H 8706126604) GLUCOSE (test code = 141 mg/dL 70-110 H 2907888880) CREATININE (test code = 0.80 mg/dL 0.50-1.04 7932974638) CALCIUM (test code = 8.9 mg/dL 8.6-10.6 5757232264) eGFR (test code = mL/min/1.73m2 3696186946) KENA (test code = KENA) Association of [...] tests). Lab Interpretation Abnormal (test code = 00009-7) [facility] WITH [id number] 11:28:10 Test Item Value Reference Range Interpretation Comments WBC (test code = See_Comment [Automated 0788-2) message] The sy stem which generated this result transmitted reference range : 4.30 - 11.10 10*3/?L. The reference range was not used to interpret this result as normal/abnormal . RBC (test code = See_Comment [Automated 218-9) message] The sy stem which generated this [...] RDW-SD (test code = 45.0 fL 39.0-49.9 06017-6) RDW-CV (test code = 14.5 % 12.0-15.5 788-0) PLT (test code = See_Comment [Automated 777-3) message] The sy stem which generated this result transmitted reference range : 166 - 358 10*3/ ?L. The reference r ilan was not used to interpret this result as normal/abnormal . MPV (test code = 11.6 fL 9.5-12.9 21292-5) NRBC/100 WBC (test See_Comment [Automat ed code = 8445674014) message] The system which generated this result transmitted reference range : 0.0 - 10.0 /100 WBCs. The refer ence range was not u sed to interpret th is result as normal/abnormal . NRBC x10^3 (test code <0.01 See_Comment [Auto mated = 6892053523) message] The s ystem which generated this result transmitted reference range : 10*3/?L. The reference range was not used to interpret this result as normal/abnormal . GRAN MAT (NEUT) % 71.9 % (test code = 770-8) IMM GRAN % (test code 1.00 % = 7270532430) LYMPH % (test code = 8.2 % 736-9) MONO % (test code = 10.5 % 5905-5) EOS % (test code = 8.0 % 713-8) BASO % (test code = 0.4 % 706-2) GRAN MAT x10^3(ANC) 3.51 10*3/uL 1.88-7.09 (test code = 0349629508) IMM GRAN x10^3 (test 0.05 10*3/uL 0.00-0.06 code = 3091460774) LYMPH x10^3 (test code 0.40 10*3/uL 1.32-3.29 L = 731-0) MONO x10^3 (test code 0.51 10*3/uL 0.33-0.92 = 742-7) EOS x10^3 (test code = 0.39 10*3/uL 0.03-0.39 711-2) BASO x10^3 (test code <0.03 0.01-0.07 = 704-7) Lab Interpretation Abnormal (test code = 31794-6) [facility] WITH [id number] 11:28:10 Test Item Value Reference Range Interpretation Comments WBC (test code = See_Comment [Automated 5290-2) message] The sy stem which generated this result transmitted reference range : 4.30 - 11.10 10*3/?L. The reference range was not used to interpret this result as normal/abnormal . RBC (test code = See_Comment [Automated 969-8) message] The sy stem which generated this [...] RDW-SD (test code = 45.0 fL 39.0-49.9 04742-6) RDW-CV (test code = 14.5 % 12.0-15.5 788-0) PLT (test code = See_Comment [Automated 777-3) message] The sy stem which generated this result transmitted reference range : 166 - 358 10*3/ ?L. The reference r ilan was not used to interpret this result as normal/abnormal . MPV (test code = 11.6 fL 9.5-12.9 63440-8) NRBC/100 WBC (test See_Comment [Automat ed code = 6990921624) message] The system which generated this result transmitted reference range : 0.0 - 10.0 /100 WBCs. The refer ence range was not u sed to interpret th is result as normal/abnormal . NRBC x10^3 (test code <0.01 See_Comment [Auto mated = 3858998995) message] The s ystem which generated this result transmitted reference range : 10*3/?L. The reference range was not used to interpret this result as normal/abnormal . GRAN MAT (NEUT) % 71.9 % (test code = 770-8) IMM GRAN % (test code 1.00 % = 2478923545) LYMPH % (test code = 8.2 % 736-9) MONO % (test code = 10.5 % 5905-5) EOS % (test code = 8.0 % 713-8) BASO % (test code = 0.4 % 706-2) GRAN MAT x10^3(ANC) 3.51 10*3/uL 1.88-7.09 (test code = 9121680725) IMM GRAN x10^3 (test 0.05 10*3/uL 0.00-0.06 code = 8286756984) LYMPH x10^3 (test code 0.40 10*3/uL 1.32-3.29 L = 731-0) MONO x10^3 (test code 0.51 10*3/uL 0.33-0.92 = 742-7) EOS x10^3 (test code = 0.39 10*3/uL 0.03-0.39 711-2) BASO x10^3 (test code <0.03 0.01-0.07 = 704-7) Lab Interpretation Abnormal (test code = 42215-2) [facility] GLUCOSE (AUTOMATED)2021-03-25 01:35:21 Test Item Value Reference Range Interpretation Comments POCT GLU (test code = 9873677252) 209 mg/dL 70-110 H Lab Interpretation (test code = Abnormal 78937-1) [facility] GLUCOSE (AUTOMATED)2021-03-25 01:35:21 Test Item Value Reference Range Interpretation Comments POCT GLU (test code = 3977728113) 209 mg/dL 70-110 H Lab Interpretation (test code = Abnormal 65338-2) [facility] 21:36:03 Test Item Value Reference Range Interpretation Comments POCT GLU (test code = 6034264349) 235 mg/dL 70-110 H Lab Interpretation (test code = Abnormal 85516-6) [facility] 21:36:03 Test Item Value Reference Range Interpretation Comments POCT GLU (test code = 0765649436) 151 mg/dL 70-110 H Lab Interpretation (test code = Abnormal 55290-0) [facility] GLUCOSE (AUTOMATED)2021-03-24 21:36:03 Test Item Value Reference Range Interpretation Comments POCT GLU (test code = 0303117888) 235 mg/dL 70-110 H Lab Interpretation (test code = Abnormal 87339-8) [facility] GLUCOSE (AUTOMATED)2021-03-24 21:36:03 Test Item Value Reference Range Interpretation Comments POCT GLU (test code = 5317138317) 151 mg/dL 70-110 H Lab Interpretation (test code = Abnormal 84336-1) [facility] GLUCOSE (AUTOMATED)2021-03-24 21:29:46 Test Item Value Reference Range Interpretation Comments POCT GLU (test code = 6548796129) 265 mg/dL 70-110 H Lab Interpretation (test code = Abnormal 59190-7) [facility] GLUCOSE (AUTOMATED)2021-03-24 21:29:46 Test Item Value Reference Range Interpretation Comments POCT GLU (test code = 4846541673) 265 mg/dL 70-110 H Lab Interpretation (test code = Abnormal 32617-7) [facility] GLUCOSE (AUTOMATED)2021-03-24 17:05:33 Test Item Value Reference Range Interpretation Comments POCT GLU (test code = 3400762077) 220 mg/dL 70-110 H Lab Interpretation (test code = Abnormal 87298-9) [facility] GLUCOSE (AUTOMATED)2021-03-24 17:05:33 Test Item Value Reference Range Interpretation Comments POCT GLU (test code = 1848172691) 220 mg/dL 70-110 H Lab Interpretation (test code = Abnormal 51219-7) [facility] GLUCOSE (AUTOMATED)2021-03-23 22:37:27 Test Item Value Reference Range Interpretation Comments POCT GLU (test code = 2399645276) 244 mg/dL 70-110 H Lab Interpretation (test code = Abnormal 85944-4) [facility] GLUCOSE (AUTOMATED)2021-03-23 22:37:27 Test Item Value Reference Range Interpretation Comments POCT GLU (test code = 3028392894) 244 mg/dL 70-110 H Lab Interpretation (test code = Abnormal 88660-4) [facility] [id number] 16:03:03 Test Item Value Reference Interpretation Comments Range TROPONIN I (test 0.003 ng/mL See_Comment [Automated code = 0402920892) message] The system which generated this result [...] biotin. Lab Interpretation Normal (test code = 80273-3) [facility] [id number] 16:03:03 Test Item Value Reference Interpretation Comments Range TROPONIN I (test 0.003 ng/mL See_Comment [Automated code = 5655034425) message] The system which generated this result [...] biotin. Lab Interpretation Normal (test code = 56125-1) [id number] 15:59:37 Test Item Value Reference Range Interpretation Comments NT-proBNP (test code 1390 pg/mL See_Comment H [Autom ated = 7297813596) message] The system which generated this result transmitted reference range : <=450. The reference range was not used to interpret this result as normal/abnormal . KENA (test code = KENA) Biotin has been reported to cause a negative bias, interpret results relative to patient's use of biotin. Lab Interpretation Abnormal (test code = 77699-4) [id number] 15:59:37 Test Item Value Reference Range Interpretation Comments NT-proBNP (test code 1390 pg/mL See_Comment H [Autom ated = 7884575049) message] The system which generated this result transmitted reference range : <=450. The reference range was not used to interpret this result as normal/abnormal . KENA (test code = KENA) Biotin has been reported to cause a negative bias, interpret results relative to patient's use of biotin. Lab Interpretation Abnormal (test code = 33590-4) [facility] [facility]OLIC PANEL ([id number])2021-03-23 15:51:33 Test Item Value Reference Range Interpretation Comments NA (test code = 132 mmol/L 135-145 L 1447356909) K (test code = 4.5 mmol/L 3.5-5.0 0120817538) CL (test code = 95 mmol/L 98-108 L 2124953126) CO2 TOTAL (test code = 28 mmol/L 23-31 5575680623) AGAP (test code = 2-16 1572424688) BUN (test code = 23 mg/dL 7-23 9448268766) GLUCOSE (test code = 295 mg/dL 70-110 H 1799095672) CREATININE (test code = 0.79 mg/dL 0.50-1.04 0717525128) TOTAL BILI (test code = 0.9 mg/dL 0.1-1.6 6644399333) CALCIUM (test code = 8.8 mg/dL 8.6-10.6 3007091501) T PROTEIN (test code = 7.1 g/dL 6.3-8.2 5807520930) ALBUMIN (test code = 3.8 g/dL 3.5-5.0 0039218210) ALK PHOS (test code = 135 U/L 34-122 H 4954589012) ALTv (test code = 21 U/L 5-35 1742-6) AST(SGOT) (test code = 25 U/L 13-40 1392310770) eGFR (test code = mL/min/1.73m2 6554633549) KENA (test code = KENA) Association of [...] tests). Lab Interpretation Abnormal (test code = 39696-0) [facility] ([id number])2021-03-23 15:51:33 Test Item Value Reference Range Interpretation Comments NA (test code = 132 mmol/L 135-145 L 1331292472) K (test code = 4.5 mmol/L 3.5-5.0 9087916641) CL (test code = 95 mmol/L 98-108 L 1405591939) CO2 TOTAL (test code = 28 mmol/L 23-31 1095993370) AGAP (test code = 2-16 9036341501) BUN (test code = 23 mg/dL 7-23 2496242025) GLUCOSE (test code = 295 mg/dL 70-110 H 7470261777) CREATININE (test code = 0.79 mg/dL 0.50-1.04 3460635035) TOTAL BILI (test code = 0.9 mg/dL 0.1-1.2 5812437053) CALCIUM (test code = 8.8 mg/dL 8.6-10.6 9558674438) T PROTEIN (test code = 7.1 g/dL 6.3-8.2 6008842976) ALBUMIN (test code = 3.8 g/dL 3.5-5.0 3447363320) ALK PHOS (test code = 135 U/L 34-122 H 4492264533) ALTv (test code = 21 U/L 5-35 1742-6) AST(SGOT) (test code = 25 U/L 13-40 5748155388) eGFR (test code = mL/min/1.73m2 8877611909) KENA (test code = KENA) Association of [...] tests). Lab Interpretation Abnormal (test code = 95848-0) [facility] WITH [id number] 15:39:13 Test Item Value Reference Range Interpretation Comments WBC (test code = See_Comment [Automated 7893-2) message] The sy stem which generated this result transmitted reference range : 4.30 - 11.10 10*3/?L. The reference range was not used to interpret this result as normal/abnormal . RBC (test code = See_Comment [Automated 742-8) message] The sy stem which generated this [...] RDW-SD (test code = 46.4 fL 39.0-49.9 74478-6) RDW-CV (test code = 14.7 % 12.0-15.5 788-0) PLT (test code = See_Comment [Automated 540-3) message] The sy stem which generated this result transmitted reference range : 166 - 358 10*3/ ?L. The reference r ilan was not used to interpret this result as normal/abnormal . MPV (test code = 11.0 fL 9.5-12.9 73648-6) NRBC/100 WBC (test See_Comment [Automat ed code = 1858637819) message] The system which generated this result transmitted reference range : 0.0 - 10.0 /100 WBCs. The refer ence range was not u sed to interpret th is result as normal/abnormal . NRBC x10^3 (test code <0.01 See_Comment [Auto mated = 9960859840) message] The s ystem which generated this result transmitted reference range : 10*3/?L. The reference range was not used to interpret this result as normal/abnormal . GRAN MAT (NEUT) % 86.1 % (test code = 770-8) IMM GRAN % (test code 0.90 % = 1550277025) LYMPH % (test code = 3.2 % 736-9) MONO % (test code = 5.3 % 5905-5) EOS % (test code = 4.2 % 713-8) BASO % (test code = 0.3 % 706-2) GRAN MAT x10^3(ANC) 6.81 10*3/uL 1.88-7.09 (test code = 9378891196) IMM GRAN x10^3 (test 0.07 10*3/uL 0.00-0.06 H code = 7090706198) LYMPH x10^3 (test code 0.25 10*3/uL 1.32-3.29 L = 731-0) MONO x10^3 (test code 0.42 10*3/uL 0.33-0.92 = 742-7) EOS x10^3 (test code = 0.33 10*3/uL 0.03-0.39 711-2) BASO x10^3 (test code <0.03 0.01-0.07 = 704-7) Lab Interpretation Abnormal (test code = 44534-4) [facility] WITH [id number] 15:39:13 Test Item Value Reference Range Interpretation [...] RDW-SD (test code = 46.4 fL 39.0-49.9 58960-9) RDW-CV (test code = 14.7 % 12.0-15.5 788-0) PLT (test code = See_Comment [Automated 777-3) message] The sy stem which generated this result transmitted reference range : 166 - 358 10*3/ ?L. The reference r ilan was not used to interpret this result as normal/abnormal . MPV (test code = 11.0 fL 9.5-12.9 90460-7) NRBC/100 WBC (test See_Comment [Automat ed code = 4832297768) message] The system which generated this result transmitted reference range : 0.0 - 10.0 /100 WBCs. The refer ence range was not u sed to interpret th is result as normal/abnormal . NRBC x10^3 (test code <0.01 See_Comment [Auto mated = 6814580093) message] The s ystem which generated this result transmitted reference range : 10*3/?L. The reference range was not used to interpret this result as normal/abnormal . GRAN MAT (NEUT) % 86.1 % (test code = 770-8) IMM GRAN % (test code 0.90 % = 0499383915) LYMPH % (test code = 3.2 % 736-9) MONO % (test code = 5.3 % 5905-5) EOS % (test code = 4.2 % 713-8) BASO % (test code = 0.3 % 706-2) GRAN MAT x10^3(ANC) 6.81 10*3/uL 1.88-7.09 (test code = 8568403142) IMM GRAN x10^3 (test 0.07 10*3/uL 0.00-0.06 H code = 5191762190) LYMPH x10^3 (test code 0.25 10*3/uL 1.32-3.29 L = 731-0) MONO x10^3 (test code 0.42 10*3/uL 0.33-0.92 = 742-7) EOS x10^3 (test code = 0.33 10*3/uL 0.03-0.39 711-2) BASO x10^3 (test code <0.03 0.01-0.07 = 704-7) Lab Interpretation Abnormal (test code = 28239-1) [facility] GLUCOSE (AUTOMATED)2021-03-17 22:20:52 Test Item Value Reference Range Interpretation Comments POCT GLU (test code = 296 mg/dL 70-110 H Notifi ed Provider [id number]) Lab Interpretation (test Abnormal code = 30751-6) [facility] GLUCOSE (AUTOMATED)2021-03-17 22:20:52 Test Item Value Reference Range Interpretation Comments POCT GLU (test code = 296 mg/dL 70-110 H Notifi ed Provider [id number]) Lab Interpretation (test Abnormal code = 61390-5) [facility] GLUCOSE (AUTOMATED)2021-03-17 16:52:36 Test Item Value Reference Range Interpretation Comments POCT GLU (test code = 3347100330) 139 mg/dL 70-110 H Lab Interpretation (test code = Abnormal 88359-5) [facility] GLUCOSE (AUTOMATED)2021-03-17 16:52:36 Test Item Value Reference Range Interpretation Comments POCT GLU (test code = 0464554127) 139 mg/dL 70-110 H Lab Interpretation (test code = Abnormal 07357-8) [facility]-REACTIVE [id number] 15:24:26 Test Item Value Reference Range Interpretation Comments CRP (test code = 0394343689) 0.8 mg/dL <0.8 H Lab Interpretation (test code = Abnormal 61047-1) [facility]-REACTIVE [id number] 15:24:26 Test Item Value Reference Range Interpretation Comments CRP (test code = 7608500082) 0.8 mg/dL <0.8 H Lab Interpretation (test code = Abnormal 94550-2) [facility] GLUCOSE (AUTOMATED)2021-03-17 13:16:28 Test Item Value Reference Range Interpretation Comments POCT GLU (test code = 4211249182) 141 mg/dL 70-110 H Lab Interpretation (test code = Abnormal 66717-2) [facility] GLUCOSE (AUTOMATED)2021-03-17 13:16:28 Test Item Value Reference Range Interpretation Comments POCT GLU (test code = 8431030328) 141 mg/dL 70-110 H Lab Interpretation (test code = Abnormal 77866-0) [facility] Metabolic Panel (NA, K, CL, CO2, GLUCOSE, BUN, CREATININE, CA)2021-03-17 11:17:30 Test Item Value Reference Range Interpretation Comments NA (test code = 133 mmol/L 135-145 L 4728837440) K (test code = 4.8 mmol/L 3.5-5.0 5369689706) CL (test code = 94 mmol/L 98-108 L 0578237351) CO2 TOTAL (test code = 31 mmol/L 23-31 5408241990) AGAP (test code = 2-16 3630567646) BUN (test code = 19 mg/dL 7-23 6583881029) GLUCOSE (test code = 172 mg/dL 70-110 H 4537279560) CREATININE (test code = 0.67 mg/dL 0.50-1.04 7836078545) CALCIUM (test code = 8.9 mg/dL 8.6-10.6 7719299162) eGFR (test code = mL/min/1.73m2 1847472444) KENA (test code = KENA) Association of [...] tests). Lab Interpretation Abnormal (test code = 84611-0) [facility] [id number] 11:17:30 Test Item Value Reference Range Interpretation Comments MAGNESIUM (test code = 3644032235) 1.7 mg/dL 1.7-2.4 Lab Interpretation (test code = Normal 57264-5) [facility] (NA, K, CL, CO2, GLUCOSE, BUN, CREATININE, CA)2021-03-17 11:17:30 Test Item Value Reference Range Interpretation Comments NA (test code = 133 mmol/L 135-145 L 8635933467) K (test code = 4.8 mmol/L 3.5-5.0 6557910643) CL (test code = 94 mmol/L 98-108 L 7099538509) CO2 TOTAL (test code = 31 mmol/L 23-31 6241207034) AGAP (test code = 2-16 7990727452) BUN (test code = 19 mg/dL 7-23 8156035475) GLUCOSE (test code = 172 mg/dL 70-110 H 3349618880) CREATININE (test code = 0.67 mg/dL 0.50-1.04 5879047797) CALCIUM (test code = 8.9 mg/dL 8.6-10.6 0577865351) eGFR (test code = mL/min/1.73m2 8932489950) KENA (test code = KENA) Association of [...] tests). Lab Interpretation Abnormal (test code = 52995-7) [facility] [id number] 11:17:30 Test Item Value Reference Range Interpretation Comments MAGNESIUM (test code = 0780160275) 1.7 mg/dL 1.7-2.4 Lab Interpretation (test code = Normal 32794-4) [facility] with [id number] 11:02:24 Test Item Value Reference Range Interpretation [...] RDW-SD (test code = 46.7 fL 39.0-49.9 95215-5) RDW-CV (test code = 14.7 % 12.0-15.5 788-0) PLT (test code = See_Comment [Automated 777-3) message] The sy stem which generated this result transmitted reference range : 166 - 358 10*3/ ?L. The reference r ilan was not used to interpret this result as normal/abnormal . MPV (test code = 11.6 fL 9.5-12.9 73232-7) NRBC/100 WBC (test See_Comment [Automat ed code = 0388687074) message] The system which generated this result transmitted reference range : 0.0 - 10.0 /100 WBCs. The refer ence range was not u sed to interpret th is result as normal/abnormal . NRBC x10^3 (test code <0.01 See_Comment [Auto mated = 9849335913) message] The s ystem which generated this result transmitted reference range : 10*3/?L. The reference range was not used to interpret this result as normal/abnormal . GRAN MAT (NEUT) % 77.8 % (test code = 770-8) IMM GRAN % (test code 0.40 % = 6323641932) LYMPH % (test code = 10.3 % 736-9) MONO % (test code = 11.5 % 5905-5) EOS % (test code = 0.0 % 713-8) BASO % (test code = 0.0 % 706-2) GRAN MAT x10^3(ANC) 1.97 10*3/uL 1.88-7.09 (test code = 4440250264) IMM GRAN x10^3 (test <0.03 0.00-0.06 code = 9296609805) LYMPH x10^3 (test code 0.26 10*3/uL 1.32-3.29 L = 731-0) MONO x10^3 (test code 0.29 10*3/uL 0.33-0.92 L = 742-7) EOS x10^3 (test code = <0.03 0.03-0.39 L 711-2) BASO x10^3 (test code <0.03 0.01-0.07 = 704-7) Lab Interpretation Abnormal (test code = 21687-7) [facility] with [id number] 11:02:24 Test Item Value Reference Range Interpretation [...] RDW-SD (test code = 46.7 fL 39.0-49.9 38396-1) RDW-CV (test code = 14.7 % 12.0-15.5 788-0) PLT (test code = See_Comment [Automated 777-3) message] The sy stem which generated this result transmitted reference range : 166 - 358 10*3/ ?L. The reference r ilan was not used to interpret this result as normal/abnormal . MPV (test code = 11.6 fL 9.5-12.9 91699-6) NRBC/100 WBC (test See_Comment [Automat ed code = 2771525209) message] The system which generated this result transmitted reference range : 0.0 - 10.0 /100 WBCs. The refer ence range was not u sed to interpret th is result as normal/abnormal . NRBC x10^3 (test code <0.01 See_Comment [Auto mated = 6236745748) message] The s ystem which generated this result transmitted reference range : 10*3/?L. The reference range was not used to interpret this result as normal/abnormal . GRAN MAT (NEUT) % 77.8 % (test code = 770-8) IMM GRAN % (test code 0.40 % = 9553702997) LYMPH % (test code = 10.3 % 736-9) MONO % (test code = 11.5 % 5905-5) EOS % (test code = 0.0 % 713-8) BASO % (test code = 0.0 % 706-2) GRAN MAT x10^3(ANC) 1.97 10*3/uL 1.88-7.09 (test code = 7487118008) IMM GRAN x10^3 (test <0.03 0.00-0.06 code = 1302199554) LYMPH x10^3 (test code 0.26 10*3/uL 1.32-3.29 L = 731-0) MONO x10^3 (test code 0.29 10*3/uL 0.33-0.92 L = 742-7) EOS x10^3 (test code = <0.03 0.03-0.39 L 711-2) BASO x10^3 (test code <0.03 0.01-0.07 = 704-7) Lab Interpretation Abnormal (test code = 83168-9) [facility] GLUCOSE (AUTOMATED)2021-03-17 02:24:14 Test Item Value Reference Range Interpretation Comments POCT GLU (test code = 2912751830) 230 mg/dL 70-110 H Lab Interpretation (test code = Abnormal 67619-4) [facility] GLUCOSE (AUTOMATED)2021-03-17 02:24:14 Test Item Value Reference Range Interpretation Comments POCT GLU (test code = 3154674016) 230 mg/dL 70-110 H Lab Interpretation (test code = Abnormal 11597-7) [facility] / [id number] 02:14:13 Test Item Value Reference Range Interpretation Comments PROTIME PATIENT (test See_Comment H [Auto mated message] code = 5964-2) The system [employer] generated this result transmitted ref erence range: 10.1 - 1 2.6 Seconds. The reference range was not used to int erpret this result as normal/abnormal . INR (test code = 6301-6) Nor mal INR <1.1; Warfarin Therap eutic range 2.0 to 3. 0 or 2.5 to 3.5, dep ending upon the indica tions. Lab Interpretation (test Abnormal code = 28271-9) [facility] / [id number] 02:14:13 Test Item Value Reference Range Interpretation Comments PROTIME PATIENT (test See_Comment H [Auto mated message] code = 5964-2) The system [employer] generated this result transmitted ref erence range: 10.1 - 1 2.6 Seconds. The reference range was not used to int erpret this result as normal/abnormal . INR (test code = 6301-6) Nor mal INR <1.1; Warfarin Therap eutic range 2.0 to 3. 0 or 2.5 to 3.5, dep ending upon the indica tions. Lab Interpretation (test Abnormal code = 23126-4) [facility] METABOLIC PANEL (NA, K, CL, CO2, GLUCOSE, BUN, CREATININE, CA)2021-03-17 02:12:36 Test Item Value Reference Range Interpretation Comments NA (test code = 131 mmol/L 135-145 L 6378664029) K (test code = 5.2 mmol/L 3.5-5.0 H 8759023894) CL (test code = 93 mmol/L 98-108 L 7344540935) CO2 TOTAL (test code = 32 mmol/L 23-31 H 8884173853) AGAP (test code = 2-16 4982385510) BUN (test code = 16 mg/dL 7-23 0844309020) GLUCOSE (test code = 252 mg/dL 70-110 H 1702692410) CREATININE (test code = 0.62 mg/dL 0.50-1.04 8029325184) CALCIUM (test code = 8.5 mg/dL 8.6-10.6 L 2443811771) eGFR (test code = mL/min/1.73m2 4345249776) KENA (test code = KENA) Association of [...] tests). Lab Interpretation Abnormal (test code = 31923-0) [facility] METABOLIC PANEL (NA, K, CL, CO2, GLUCOSE, BUN, CREATININE, CA)2021-03-17 02:12:36 Test Item Value Reference Range Interpretation Comments NA (test code = 131 mmol/L 135-145 L 8007056205) K (test code = 5.2 mmol/L 3.5-5.0 H 9525646571) CL (test code = 93 mmol/L 98-108 L 7968941500) CO2 TOTAL (test code = 32 mmol/L 23-31 H 7479454994) AGAP (test code = 2-16 1619974152) BUN (test code = 16 mg/dL 7-23 9777093663) GLUCOSE (test code = 252 mg/dL 70-110 H 9157337856) CREATININE (test code = 0.62 mg/dL 0.50-1.04 5480083039) CALCIUM (test code = 8.5 mg/dL 8.6-10.6 L 4562734618) eGFR (test code = mL/min/1.73m2 4880230156) KENA (test code = KENA) Association of [...] tests). Lab Interpretation Abnormal (test code = 15087-0) [facility] [id number] 01:58:17 Test Item Value Reference Range Interpretation Comments LACTIC ACID (test code = 1.21 mmol/L 0.50-2.20 7032056503) Lab Interpretation (test code = Normal 00875-0) [id number] 01:58:17 Test Item Value Reference Range Interpretation Comments LACTIC ACID (test code = 1.21 mmol/L 0.50-2.20 9613080525) Lab Interpretation (test code = Normal 68157-6) [facility]cos[facility] Hemoglobin (A1C)2021-03-17 01:21:32 Test Item Value Reference Range Interpretation Comments HGB A1C (test code = 8.9 % 4.0-5.7 H 4548-4) KENA (test code = KENA) Reference RangesNormal: <5.7%Prediabetes: 5.7 - 6.4%Diabetes: > 6.5% Lab Interpretation (test Abnormal code = 81247-1) [facility] Hemoglobin (A1C)2021-03-17 01:21:32 Test Item Value Reference Range Interpretation Comments HGB A1C (test code = 8.9 % 4.0-5.7 H 4548-4) KENA (test code = KENA) Reference RangesNormal: <5.7%Prediabetes: 5.7 - 6.4%Diabetes: > 6.5% Lab Interpretation (test Abnormal code = 32019-0) [facility] GLUCOSE (AUTOMATED)2021-03-16 22:38:54 Test Item Value Reference Range Interpretation Comments POCT GLU (test code = 1287911800) 214 mg/dL 70-110 H Lab Interpretation (test code = Abnormal 51318-0) [facility] GLUCOSE (AUTOMATED)2021-03-16 22:38:54 Test Item Value Reference Range Interpretation Comments POCT GLU (test code = 4186423319) 214 mg/dL 70-110 H Lab Interpretation (test code = Abnormal 20037-2) [facility]2021-09-08 20:56:07 Test Item Value Reference Range Interpretation Comments Procalcitonin (test 0.02 ng/mL <0.07 code = 0101268048) KENA (test code = KENA) INTERPRETATION OF [...] lung abscess/empyema. For further information please refer to:[email or web address] Lab Interpretation Normal (test code = 63798-7) [facility]ALCITONIN2021-09-08 20:56:07 Test Item Value Reference Range Interpretation Comments Procalcitonin (test 0.02 ng/mL <0.07 code = 7359009540) KENA (test code = KENA) INTERPRETATION OF [...] lung abscess/empyema. For further information please refer to:[email or web address] Lab Interpretation Normal (test code = 72523-5) [facility]iscoXR CHEST 1 [id number] 19:22:20 1. 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 [facility], Radiant Results In[facility] User - 03/16/2021 2:23 [...] reviewed this study and agree with the abovereport.[facility] 1 [id number] 19:22:20 1. 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 [facility], Radiant Results In[facility] User - [...] this study and agree with the abovereport. [facility]iscoFERRITIN [id number] 16:45:59 Test Item Value Reference Range Interpretation Comments FERRITIN (test code = 50.9 ng/mL 11.0-264.0 7494181135) KENA (test code = KENA) Biotin has been reported to cause a negative bias, interpret results relative to patient's use of biotin. Lab Interpretation (test Normal code = 77401-6) [facility]ERR[facility] [id number] 16:45:59 Test Item Value Reference Range Interpretation Comments FERRITIN (test code = 50.9 ng/mL 11.0-264.0 6939982705) KENA (test code = KENA) Biotin has been reported to cause a negative bias, interpret results relative to patient's use of biotin. Lab Interpretation (test Normal code = 90388-2) [facility]AL[facility]IS2021-09-08 16:24:24 Test Item Value Reference Range Interpretation Comments APPEARANCE (test code = Clear Clear 1857579603) COLOR (test code = Yellow Yellow 2923183997) PH (test code = 4.8-8.0 5205758515) SP GRAVITY (test code = 1.003-1.030 3559136330) GLU U QUAL (test code = 500 mg/dL Normal A 3288224509) BLOOD (test code = Negative Negative Interfere nce from 0107038505) ascorbic acid m ay cause false neg ative results. KETONES (test code = Negative Negative 0739471208) PROTEIN (test code = Negative Negative 2887-8) UROBILIN (test code = Normal Normal 7770904181) BILIRUBIN (test code = Negative Negative 4469555815) NITRITE (test code = Negative Negative 0185224119) LEUK TORSTEN (test code = Negative Negative 0407526538) RBC/HPF (test code = See_Comment [Autom ated message] 9643302098) The system Written generated this result transmitted ref erence range: 0 - 3 HP F. The reference range was not used to int erpret this result as normal/abnormal . WBC/HPF (test code = <1 See_Comment [Autom ated message] 3854584741) The system Written generated this result transmitted ref erence range: 0 - 5 HP F. The reference range was not used to int erpret this result as normal/abnormal . BACTERIA (test code = Negative Negative 1495652957) SQ EPITH (test code = HPF 2137758386) HYAL CAST (test code = See_Comment H [Aut omated message] 8305535052) The system Written generated this result transmitted ref erence range: <=2 LPF. The reference range was not used to int erpret this result as normal/abnormal . Lab Interpretation Abnormal (test code = 30906-0) [facility]2021-[facility]-08 16:24:24 Test Item Value Reference Range Interpretation Comments APPEARANCE (test code = Clear Clear 2973147685) COLOR (test code = Yellow Yellow 2370307981) PH (test code = 4.8-8.0 5419897170) SP GRAVITY (test code = 1.003-1.030 2763734843) GLU U QUAL (test code = 500 mg/dL Normal A 0763920079) BLOOD (test code = Negative Negative Interfere nce from 5599670345) ascorbic acid m ay cause false neg ative results. KETONES (test code = Negative Negative 0989405438) PROTEIN (test code = Negative Negative 2887-8) UROBILIN (test code = Normal Normal 8968159623) BILIRUBIN (test code = Negative Negative 4614394611) NITRITE (test code = Negative Negative 7491302062) LEUK TORSTEN (test code = Negative Negative 8079684617) RBC/HPF (test code = See_Comment [Autom ated message] 4445300308) The system Written generated this result transmitted ref erence range: 0 - 3 HP F. The reference range was not used to int erpret this result as normal/abnormal . WBC/HPF (test code = <1 See_Comment [Autom ated message] 2813124794) The system Written generated this result transmitted ref erence range: 0 - 5 HP F. The reference range was not used to int erpret this result as normal/abnormal . BACTERIA (test code = Negative Negative 6973046383) SQ EPITH (test code = HPF 9921075558) HYAL CAST (test code = See_Comment H [Aut omated message] 9181913720) The system Written generated this result transmitted ref erence range: <=2 LPF. The reference range was not used to int erpret this result as normal/abnormal . Lab Interpretation Abnormal (test code = 87570-1) [facility] [id number] 16:23:12 Test Item Value Reference Interpretation Comments Range TROPONIN I (test 0.003 ng/mL See_Comment [Automated code = 1876203337) message] The system which generated this result [...] biotin. Lab Interpretation Normal (test code = 47689-6) [facility] [id number] 16:23:12 Test Item Value Reference Interpretation Comments Range TROPONIN I (test 0.003 ng/mL See_Comment [Automated code = 2970659546) message] The system which generated this result [...] biotin. Lab Interpretation Normal (test code = 88814-9) [facility] [id number] 16:19:59 Test Item Value Reference Range Interpretation Comments NT-proBNP (test code 2200 pg/mL See_Comment H [Autom ated = 9611710043) message] The system which generated this result transmitted reference range : <=450. The reference range was not used to interpret this result as normal/abnormal . KENA (test code = KENA) Biotin has been reported to cause a negative bias, interpret results relative to patient's use of biotin. Lab Interpretation Abnormal (test code = 44801-3) [facility] [id number] 16:19:59 Test Item Value Reference Range Interpretation Comments NT-proBNP (test code 2200 pg/mL See_Comment H [Autom ated = 0884265409) message] The system which generated this result transmitted reference range : <=450. The reference range was not used to interpret this result as normal/abnormal . KENA (test code = KENA) Biotin has been reported to cause a negative bias, interpret results relative to patient's use of biotin. Lab Interpretation Abnormal (test code = 16702-1) [facility] METABOLIC PANEL (13041)2021-03-16 16:14:12 Test Item Value Reference Range Interpretation Comments NA (test code = 132 mmol/L 135-145 L 1988139142) K (test code = 4.4 mmol/L 3.5-5.0 8968684524) CL (test code = 92 mmol/L 98-108 L 4574233709) CO2 TOTAL (test code = 30 mmol/L 23-31 3972401246) AGAP (test code = 2-16 6380127358) BUN (test code = 22 mg/dL 7-23 6284209182) GLUCOSE (test code = 303 mg/dL 70-110 H 6193247900) CREATININE (test code = 0.69 mg/dL 0.50-1.04 5383764176) TOTAL BILI (test code = 0.7 mg/dL 0.1-1.7 4509085870) CALCIUM (test code = 8.7 mg/dL 8.6-10.6 4920971743) T PROTEIN (test code = 7.2 g/dL 6.3-8.2 5076839268) ALBUMIN (test code = 4.0 g/dL 3.5-5.0 0047588669) ALK PHOS (test code = 124 U/L 34-122 H 0830352959) ALTv (test code = 19 U/L 35 1742-6) AST(SGOT) (test code = 25 U/L 13-40 8295427240) eGFR (test code = mL/min/1.73m2 1897663071) KENA (test code = KENA) Association of [...] tests). Lab Interpretation Abnormal (test code = 00968-9) [facility]. METABOLIC PANEL (89131)2021-03-16 16:14:12 Test Item Value Reference Range Interpretation Comments NA (test code = 132 mmol/L 135-145 L 7866410192) K (test code = 4.4 mmol/L 3.5-5.0 7099241266) CL (test code = 92 mmol/L 98-108 L 0404079896) CO2 TOTAL (test code = 30 mmol/L 23-31 6784646917) AGAP (test code = 2-16 3915674057) BUN (test code = 22 mg/dL 7-23 3222401608) GLUCOSE (test code = 303 mg/dL 70-110 H 5951658128) CREATININE (test code = 0.69 mg/dL 0.50-1.04 1596787685) TOTAL BILI (test code = 0.7 mg/dL 0.1-1.9 9084202070) CALCIUM (test code = 8.7 mg/dL 8.6-10.6 6151799609) T PROTEIN (test code = 7.2 g/dL 6.3-8.2 4684595895) ALBUMIN (test code = 4.0 g/dL 3.5-5.0 6189506303) ALK PHOS (test code = 124 U/L 34-122 H 4055274712) ALTv (test code = 19 U/L 5-35 2-6) AST(SGOT) (test code = 25 U/L 13-40 5931158075) eGFR (test code = mL/min/1.73m2 2371055488) KENA (test code = KENA) Association of [...] tests). Lab Interpretation Abnormal (test code = 83595-9) [facility] [id number] 16:12:49 Test Item Value Reference Range Interpretation Comments LDH (test code = 5401870309) 412 U/L 300-600 Lab Interpretation (test code = Normal 82616-7) [facility] [id number] 16:12:49 Test Item Value Reference Range Interpretation Comments LDH (test code = 5139102267) 412 U/L 300-600 Lab Interpretation (test code = Normal 69243-2) [facility]-[id number] 16:06:30 Test Item Value Reference Interpretation Comments Range D-DIMER (test code = See_Comment H [Autom ated 8385149290) message] The system which generated this result [...] diagnosis. Lab Interpretation Abnormal (test code = 24552-3) [facility]-[id number] 16:06:30 Test Item Value Reference Interpretation Comments Range D-DIMER (test code = See_Comment H [Autom ated 8103870872) message] The system which generated this result [...] diagnosis. Lab Interpretation Abnormal (test code = 66406-0) [facility] Test Item Value Reference Range Interpretation Comments Fibrinogen (test code = 8087900701) 367 mg/dL 214-470 Lab Interpretation (test code = Normal 70960-9) [facility] 16:03:07 Test Item Value Reference Range Interpretation Comments Fibrinogen (test code = 6615178510) 367 mg/dL 214-470 Lab Interpretation (test code = Normal 71392-7) [facility] / [id number] 16:01:50 Test Item Value Reference Range Interpretation Comments PROTIME PATIENT (test See_Comment [Auto mated message] code = 5964-2) The system [employer] generated this result transmitted ref erence range: 12.0 - 1 4.7 Seconds. The re ference range was not u sed to interpret this result as normal/abnor mal. INR (test code = 6301-6) Nor mal INR <1.1; Warfarin Therap eutic range 2.0 to 3. 0 or 2.5 to 3.5, dep ending upon the indica tions. Lab Interpretation (test Normal code = 05758-8) [facility] / [id number] 16:01:50 Test Item Value Reference Range Interpretation Comments PROTIME PATIENT (test See_Comment [Auto mated message] code = 5964-2) The system [employer] generated this result transmitted ref erence range: 12.0 - 1 4.7 Seconds. The re ference range was not u sed to interpret this result as normal/abnor mal. INR (test code = 6301-6) Nor mal INR <1.1; Warfarin Therap eutic range 2.0 to 3. 0 or 2.5 to 3.5, dep ending upon the indica tions. Lab Interpretation (test Normal code = 95606-5) [facility] WITH [id number] 15:55:48 Test Item Value Reference Range Interpretation Comments WBC (test code = See_Comment [Automated 1590-2) message] The sy stem which generated this result transmitted reference range : 4.30 - 11.10 10*3/?L. The reference range was not used to interpret this result as normal/abnormal . RBC (test code = See_Comment [Automated 619-8) message] The sy stem which generated this [...] RDW-SD (test code = 47.3 fL 39.0-49.9 97749-4) RDW-CV (test code = 14.9 % 12.0-15.5 788-0) PLT (test code = See_Comment [Automated 777-3) message] The sy stem which generated this result transmitted reference range : 166 - 358 10*3/ ?L. The reference r ilan was not used to interpret this result as normal/abnormal . MPV (test code = 12.1 fL 9.5-12.9 67747-5) NRBC/100 WBC (test See_Comment [Automat ed code = 8632958716) message] The system which generated this result transmitted reference range : 0.0 - 10.0 /100 WBCs. The refer ence range was not u sed to interpret th is result as normal/abnormal . NRBC x10^3 (test code <0.01 See_Comment [Auto mated = 0089575572) message] The s ystem which generated this result transmitted reference range : 10*3/?L. The reference range was not used to interpret this result as normal/abnormal . GRAN MAT (NEUT) % 81.6 % (test code = 770-8) IMM GRAN % (test code 0.90 % = 7120867407) LYMPH % (test code = 5.4 % 736-9) MONO % (test code = 7.8 % 5905-5) EOS % (test code = 4.1 % 713-8) BASO % (test code = 0.2 % 706-2) GRAN MAT x10^3(ANC) 3.79 10*3/uL 1.88-7.09 (test code = 4012757681) IMM GRAN x10^3 (test 0.04 10*3/uL 0.00-0.06 code = 8736750553) LYMPH x10^3 (test code 0.25 10*3/uL 1.32-3.29 L = 731-0) MONO x10^3 (test code 0.36 10*3/uL 0.33-0.92 = 742-7) EOS x10^3 (test code = 0.19 10*3/uL 0.03-0.39 711-2) BASO x10^3 (test code <0.03 0.01-0.07 = 704-7) Lab Interpretation Abnormal (test code = 35549-4) [facility] WITH [id number] 15:55:48 Test Item Value Reference Range Interpretation Comments WBC (test code = See_Comment [Automated 2490-2) message] The sy stem which generated this result transmitted reference range : 4.30 - 11.10 10*3/?L. The reference range was not used to interpret this result as normal/abnormal . RBC (test code = See_Comment [Automated 269-8) message] The sy stem which generated this [...] RDW-SD (test code = 47.3 fL 39.0-49.9 87189-7) RDW-CV (test code = 14.9 % 12.0-15.5 788-0) PLT (test code = See_Comment [Automated 777-3) message] The sy stem which generated this result transmitted reference range : 166 - 358 10*3/ ?L. The reference r ilan was not used to interpret this result as normal/abnormal . MPV (test code = 12.1 fL 9.5-12.9 49819-9) NRBC/100 WBC (test See_Comment [Automat ed code = 0160828940) message] The system which generated this result transmitted reference range : 0.0 - 10.0 /100 WBCs. The refer ence range was not u sed to interpret th is result as normal/abnormal . NRBC x10^3 (test code <0.01 See_Comment [Auto mated = 7610288581) message] The s ystem which generated this result transmitted reference range : 10*3/?L. The reference range was not used to interpret this result as normal/abnormal . GRAN MAT (NEUT) % 81.6 % (test code = 770-8) IMM GRAN % (test code 0.90 % = 3918433281) LYMPH % (test code = 5.4 % 736-9) MONO % (test code = 7.8 % 5905-5) EOS % (test code = 4.1 % 713-8) BASO % (test code = 0.2 % 706-2) GRAN MAT x10^3(ANC) 3.79 10*3/uL 1.88-7.09 (test code = 5073777856) IMM GRAN x10^3 (test 0.04 10*3/uL 0.00-0.06 code = 6491673588) LYMPH x10^3 (test code 0.25 10*3/uL 1.32-3.29 L = 731-0) MONO x10^3 (test code 0.36 10*3/uL 0.33-0.92 = 742-7) EOS x10^3 (test code = 0.19 10*3/uL 0.03-0.39 711-2) BASO x10^3 (test code <0.03 0.01-0.07 = 704-7) Lab Interpretation Abnormal (test code = 22274-1) [facility] Acid Whole [id number] 15:31:08 Test Item Value Reference Range Interpretation Comments LACTIC ACID (test code = 2.41 mmol/L 0.50-2.20 H 6512269460) Lab Interpretation (test code = Abnormal 50781-6) [facility] Acid Whole [id number] 15:31:08 Test Item Value Reference Range Interpretation Comments LACTIC ACID (test code = 2.41 mmol/L 0.50-2.20 H 0944538989) Lab Interpretation (test code = Abnormal 98137-0) [facility] WITH [id number] 15:31:14 Test Item Value Reference Range Interpretation Comments WBC (test code = See_Comment [Automated 0790-2) message] The sy stem which generated this result transmitted reference range : 4.30 - 11.10 10*3/?L. The reference range was not used to interpret this result as normal/abnormal . RBC (test code = See_Comment [Automated 591-8) message] The sy stem which generated this [...] RDW-SD (test code = 46.8 fL 39.0-49.9 81072-0) RDW-CV (test code = 14.6 % 12.0-15.5 788-0) PLT (test code = See_Comment [Automated 777-3) message] The sy stem which generated this result transmitted reference range : 166 - 358 10*3/ ?L. The reference r ilan was not used to interpret this result as normal/abnormal . MPV (test code = 10.8 fL 9.5-12.9 09777-2) NRBC/100 WBC (test See_Comment [Automat ed code = 6214750493) message] The system which generated this result transmitted reference range : 0.0 - 10.0 /100 WBCs. The refer ence range was not u sed to interpret th is result as normal/abnormal . NRBC x10^3 (test code <0.01 See_Comment [Auto mated = 6356091802) message] The s ystem which generated this result transmitted reference range : 10*3/?L. The reference range was not used to interpret this result as normal/abnormal . GRAN MAT (NEUT) % 81.3 % (test code = 770-8) IMM GRAN % (test code 0.50 % = 1452754738) LYMPH % (test code = 5.9 % 736-9) MONO % (test code = 9.1 % 5905-5) EOS % (test code = 2.8 % 713-8) BASO % (test code = 0.4 % 706-2) GRAN MAT x10^3(ANC) 6.04 10*3/uL 1.88-7.09 (test code = 6789758650) IMM GRAN x10^3 (test 0.04 10*3/uL 0.00-0.06 code = 4340183789) LYMPH x10^3 (test code 0.44 10*3/uL 1.32-3.29 L = 731-0) MONO x10^3 (test code 0.68 10*3/uL 0.33-0.92 = 742-7) EOS x10^3 (test code = 0.21 10*3/uL 0.03-0.39 711-2) BASO x10^3 (test code 0.03 10*3/uL 0.01-0.07 = 704-7) Lab Interpretation Abnormal (test code = 88256-8) [facility] [id number] 20:17:42 No acute intracranial abnormality Background mild [...] voidsfor the major intracranial vessels are unremarkable. [facility], Radiant Results Inft User - 05/04/2020 3:18 [...] acute intracranial abnormalityBackground mild ischemic small vessel diseaseUnGraham Regional Medical CenterXR KNEE 3 VW [id number] 20:52:52 Healing lateral femoral condyle periprosthetic fracture. [...] small joint effusion.IMPRESSIONHealing lateral femoral condyle periprosthetic fracture.[facility] GLUCOSE (AUTOMATED)2019-03-18 16:33:00 Test Item Value Reference Range Interpretation Comments POCT GLU (test code = 6366652728) 260 mg/dL 70-110 H Lab Interpretation (test code = Abnormal 74290-9) [facility] GLUCOSE (AUTOMATED)2019-03-18 12:42:00 Test Item Value Reference Range Interpretation Comments POCT GLU (test code = 6358693666) 114 mg/dL 70-110 H Lab Interpretation (test code = Abnormal 88302-5) [facility] (NA, K, CL, CO2, GLUCOSE, BUN, CREATININE, CA)2019-03-18 10:55:00 Test Item Value Reference Range Interpretation Comments NA (test code = 135 mmol/L 135-145 3859184922) K (test code = 4.8 mmol/L 3.5-5 5008536371) CL (test code = 88 mmol/L 98-108 L 8431211578) CO2 TOTAL (test code = 38 mmol/L 23-31 H 7651885709) AGAP (test code = 2-16 1896883092) BUN (test code = 28 mg/dL 7-23 H 8023296452) GLUCOSE (test code = 112 mg/dL 70-110 H 7010221059) CREATININE (test code = 0.73 mg/dL 0.5-1.04 6571976694) CALCIUM (test code = 9.0 mg/dL 8.6-10.6 1486729778) eGFR Calculation mL/min/1.73m2 (Non-) (test code = 2171464120) eGFR Calculation mL/min/1.73m2 () (test code = 6573594440) KENA (test code = KENA) Association of [...] tests). Lab Interpretation Abnormal (test code = 20893-7) [facility] GLUCOSE (AUTOMATED)2019-03-18 06:47:00 Test Item Value Reference Range Interpretation Comments POCT GLU (test code = 7767595025) 150 mg/dL 70-110 H Lab Interpretation (test code = Abnormal 89603-1) [facility] GLUCOSE (AUTOMATED)2019-03-18 02:30:00 Test Item Value Reference Range Interpretation Comments POCT GLU (test code = 6050237262) 318 mg/dL 70-110 H Lab Interpretation (test code = Abnormal 70985-9) [facility] [id number] 22:58:57 Mild pulmonary vascular congestion and cardiomegaly. [...] silhouette is enlarged. No acute osseous abnormality. [facility], Radiant Results Inft User - [...] reviewed this study and agree with the abovereport.[facility]2019-[facility]-17 22:02:00 Test Item Value Reference Range Interpretation Comments POCT GLU (test code = 8679327871) 274 mg/dL 70-110 H Lab Interpretation (test code = Abnormal 28246-2) [facility]2019-03-17 16:23:00 Test Item Value Reference Range Interpretation Comments POCT GLU (test code = 5090116428) 221 mg/dL 70-110 H Lab Interpretation (test code = Abnormal 34089-1) [facility] METABOLIC PANEL (NA, K, CL, CO2, GLUCOSE, BUN, CREATININE, CA)2019-03-17 13:24:00 Test Item Value Reference Range Interpretation Comments NA (test code = 133 mmol/L 135-145 L 4369767176) K (test code = 4.2 mmol/L 3.5-5 8351233256) CL (test code = 85 mmol/L 98-108 L 8374402251) CO2 TOTAL (test code = 40 mmol/L 23-31 H 0311159314) AGAP (test code = 2-16 3962368143) BUN (test code = 27 mg/dL 7-23 H 5070035353) GLUCOSE (test code = 79 mg/dL 70-110 3234042646) CREATININE (test code = 0.67 mg/dL 0.5-1.04 7427576354) CALCIUM (test code = 9.4 mg/dL 8.6-10.6 2229725172) eGFR Calculation mL/min/1.73m2 (Non-) (test code = 8111940707) eGFR Calculation mL/min/1.73m2 () (test code = 0411509157) KENA (test code = KENA) Association of [...] tests). Lab Interpretation Abnormal (test code = 33890-6) [facility]2019-[facility]17 12:56:00 Test Item Value Reference Range Interpretation Comments POCT GLU (test code = 9874060833) 72 mg/dL 70-110 Lab Interpretation (test code = Normal 36998-2) [facility] WITH [id number] 12:49:00 Test Item Value Reference Range Interpretation Comments WBC (test code = See_Comment [Automated 6690-2) message] The sy stem which generated this result transmitted reference range : 4.30 - 11.10 10*3/?L. The reference range was not used to interpret this result as normal/abnormal . RBC (test code = See_Comment [Automated 169-8) message] The sy stem which generated this [...] RDW-SD (test code = 43.0 fL 39-49.9 59217-8) RDW-CV (test code = 13.3 % 12-15.5 788-0) PLT (test code = See_Comment [Automated 777-3) message] The sy stem which generated this result transmitted reference range : 166 - 358 10*3/ ?L. The reference r ilan was not used to interpret this result as normal/abnormal . MPV (test code = 11.3 fL 9.5-12.9 17538-4) NRBC/100 WBC (test See_Comment [Automat ed code = 5311066395) message] The system which generated this result transmitted reference range : 0.0 - 10.0 /100 WBCs. The refer ence range was not u sed to interpret th is result as normal/abnormal . NRBC x10^3 (test code <0.01 See_Comment [Auto mated = 6917114384) message] The s ystem which generated this result transmitted reference range : 10*3/?L. The reference range was not used to interpret this result as normal/abnormal . GRAN MAT (NEUT) % 77.5 % (test code = 770-8) IMM GRAN % (test code 1.50 % = 4211542072) LYMPH % (test code = 6.7 % 736-9) MONO % (test code = 10.8 % 5905-5) EOS % (test code = 3.2 % 713-8) BASO % (test code = 0.3 % 706-2) GRAN MAT x10^3(ANC) 5.12 10*3/uL 1.88-7.09 (test code = 6900149874) IMM GRAN x10^3 (test 0.10 10*3/uL 0-0.06 H code = 9941196849) LYMPH x10^3 (test code 0.44 10*3/uL 1.32-3.29 L = 731-0) MONO x10^3 (test code 0.71 10*3/uL 0.33-0.92 = 742-7) EOS x10^3 (test code = 0.21 10*3/uL 0.03-0.39 711-2) BASO x10^3 (test code <0.03 0.01-0.07 = 704-7) Lab Interpretation Abnormal (test code = 87178-6) [facility] GLUCOSE (AUTOMATED)2019-03-17 01:50:00 Test Item Value Reference Range Interpretation Comments POCT GLU (test code = 3092846387) 256 mg/dL 70-110 H Lab Interpretation (test code = Abnormal 50800-6) [facility] GLUCOSE (AUTOMATED)2019-03-16 21:45:00 Test Item Value Reference Range Interpretation Comments POCT GLU (test code = 8305686532) 162 mg/dL 70-110 H Lab Interpretation (test code = Abnormal 75179-4) [facility] GLUCOSE (AUTOMATED)2019-03-16 16:28:00 Test Item Value Reference Range Interpretation Comments POCT GLU (test code = 5947798115) 269 mg/dL 70-110 H Lab Interpretation (test code = Abnormal 54523-8) [facility]W [id number] 16:17:55 Diffuse mild soft tissue swelling without [...] reviewed this study and agree with the abovereport.[facility] GLUCOSE (AUTOMATED)2019-03-16 12:39:00 Test Item Value Reference Range Interpretation Comments POCT GLU (test code = 5367001592) 113 mg/dL 70-110 H Lab Interpretation (test code = Abnormal 20855-8) [facility] GLUCOSE (AUTOMATED)2019-03-16 01:28:00 Test Item Value Reference Range Interpretation Comments POCT GLU (test code = 7039854660) 201 mg/dL 70-110 H Lab Interpretation (test code = Abnormal 47434-9) [facility] 21:56:00 Test Item Value Reference Range Interpretation Comments POCT GLU (test code = 8889507377) 119 mg/dL 70-110 H Lab Interpretation (test code = Abnormal 25988-6) [facility] GLUCOSE (AUTOMATED)2019-03-15 21:56:00 Test Item Value Reference Range Interpretation Comments POCT GLU (test code = 6140822090) 184 mg/dL 70-110 H Lab Interpretation (test code = Abnormal 06675-7) [facility] GLUCOSE (AUTOMATED)2019-03-15 13:58:00 Test Item Value Reference Range Interpretation Comments POCT GLU (test code = 7125358561) 57 mg/dL 70-110 L Lab Interpretation (test code = Abnormal 69342-6) [facility] GLUCOSE (AUTOMATED)2019-03-15 13:58:00 Test Item Value Reference Range Interpretation Comments POCT GLU (test code = 4728604267) 82 mg/dL 70-110 Lab Interpretation (test code = Normal 62827-7) [facility] GLUCOSE (AUTOMATED)2019-03-15 00:47:00 Test Item Value Reference Range Interpretation Comments POCT GLU (test code = 4858888482) 293 mg/dL 70-110 H Lab Interpretation (test code = Abnormal 59410-8) [facility] 21:38:00 Test Item Value Reference Range Interpretation Comments POCT GLU (test code = 7512234867) 256 mg/dL 70-110 H Lab Interpretation (test code = Abnormal 73750-4) [facility]2019-03-14 17:20:00 Test Item Value Reference Range Interpretation Comments POCT GLU (test code = 1886971756) 149 mg/dL 70-110 H Lab Interpretation (test code = Abnormal 30237-7) [facility] GLUCOSE (AUTOMATED)2019-03-14 12:50:00 Test Item Value Reference Range Interpretation Comments POCT GLU (test code = 8811090039) 100 mg/dL 70-110 Lab Interpretation (test code = Normal 89519-7) [facility] [id number] 07:32:02Impression: Moderate cardiomegaly without acute pulmonary process. RL: 460 AFC: 28135Wurgybkrnk: Hypoxia Comparison: None Findings: Single AP view [...] intact.IMPRESSIONImpression:Moderate cardiomegaly without acute pulmonary process.RL: 460AFC: 54394[facility]phjlbuqdaG[facility] CenterXR KNEE 3 VW LEFT 2019-03-14 [...] reviewed this study and agree with the abovereport.[facility] GLUCOSE (AUTOMATED)2019-03-14 01:34:00 Test Item Value Reference Range Interpretation Comments POCT GLU (test code = 4367248177) 232 mg/dL 70-110 H Lab Interpretation (test code = Abnormal 40537-7) [facility] GLUCOSE (AUTOMATED)2019-03-13 21:12:00 Test Item Value Reference Range Interpretation Comments POCT GLU (test code = 3911420023) 228 mg/dL 70-110 H Lab Interpretation (test code = Abnormal 26100-1) [facility] GLUCOSE (AUTOMATED)2019-03-13 16:52:00 Test Item Value Reference Range Interpretation Comments POCT GLU (test code = 2149741871) 162 mg/dL 70-110 H Lab Interpretation (test code = Abnormal 82618-9) [facility] [id number] 13:44:00 Test Item Value Reference Range Interpretation Comments Ampicillin (test code = 4: Susceptible 19802-6) Cefazolin (test code = <=4: Susceptible 72989-4) Ceftriaxone (test code = <=1: Susceptible 02198-7) Ertapenem (test code = <=0.5: Susceptible 28949-6) Gentamicin (test code = <=1: Susceptible 68619-7) Levofloxacin (test code = <=0.12: Susceptible 02087-6) Nitrofurantoin (test code <=16: Susceptible = 17036-0) Piperacillin/Tazobactam <=4: Susceptible (test code = 73964-7) Trimethoprim/Sulfamethoxa <=20: Susceptible zole (test code = 14883-6) Nitrofurantoin is not recommended for use in treating pyelonephritis or systemic disease.[facility] [id number] 13:09:00 Test Item Value Reference Interpretation Comments Range Blood Culture positive, No growth AA Previous Culture-Aerobic identification to teresa mccord (test code = follow verified result 93348-7) was Culture In Progress on 03/11/2019 at 084 4 CDT Blood Culture positive, No growth AA Previous Culture-Anaerobic identification to preli minary (test code = follow verified result 19678-2) was Culture In Progress on 03/10/2019 at 230 1 CDT Lab Interpretation Abnormal (test code = 66594-0) [facility] CULTURE [id number] 13:09:00 Test Item Value Reference Range Interpretation Comments Gram stain Isolated from This is an imelda ended (test code = aerobic bottle report. These results 664-3) Gram negative rods have been appended to a previously preliminary annette ified report. [facility] CULTURE [id number] 13:07:00 Test Item Value Reference Interpretation Comments Range Blood Culture positive, No growth AA Previous Culture-Aerobic identification to prelimi nary (test code = follow verified result 29503-1) was Culture In Progress on 03/10/2019 at 230 1 CDT Blood Culture positive, No growth AA Previous Culture-Anaerobic identification to preli minary (test code = follow verified result 78753-0) was Culture In Progress on 03/11/2019 at 084 6 CDT Lab Interpretation Abnormal (test code = 30484-7) [facility]2019-03-13 12:32:00 Test Item Value Reference Range Interpretation Comments POCT GLU (test code = 8687132693) 136 mg/dL 70-110 H Lab Interpretation (test code = Abnormal 28860-4) [facility] METABOLIC PANEL (NA, K, CL, CO2, GLUCOSE, BUN, CREATININE, CA)2019-03-13 11:26:00 Test Item Value Reference Range Interpretation Comments NA (test code = 130 mmol/L 135-145 L 4200027578) K (test code = 4.2 mmol/L 3.5-5 8605980312) CL (test code = 87 mmol/L 98-108 L 7374347864) CO2 TOTAL (test code = 37 mmol/L 23-31 H 9749121710) AGAP (test code = 2-16 6012168489) BUN (test code = 18 mg/dL 7-23 2799228776) GLUCOSE (test code = 141 mg/dL 70-110 H 2525389887) CREATININE (test code = 0.65 mg/dL 0.5-1.04 1229018264) CALCIUM (test code = 9.0 mg/dL 8.6-10.6 5256170691) eGFR Calculation mL/min/1.73m2 (Non-) (test code = 7729190379) eGFR Calculation mL/min/1.73m2 () (test code = 4398294541) KENA (test code = KENA) Association of [...] tests). Lab Interpretation Abnormal (test code = 96304-9) [facility] WITH [id number] 11:20:00 Test Item Value Reference Range Interpretation Comments WBC (test code = See_Comment [Automated 6546-2) message] The sy stem which generated this result transmitted reference range : 4.30 - 11.10 10*3/?L. The reference range was not used to interpret this result as normal/abnormal . RBC (test code = See_Comment [Automated 368-2) message] The sy stem which generated this [...] RDW-SD (test code = 42.6 fL 39-49.9 88289-4) RDW-CV (test code = 13.3 % 12-15.5 788-0) PLT (test code = See_Comment [Automated 777-3) message] The sy stem which generated this result transmitted reference range : 166 - 358 10*3/ ?L. The reference r ilan was not used to interpret this result as normal/abnormal . MPV (test code = 12.1 fL 9.5-12.9 39194-5) NRBC/100 WBC (test See_Comment [Automat ed code = 9234695481) message] The system which generated this result transmitted reference range : 0.0 - 10.0 /100 WBCs. The refer ence range was not u sed to interpret th is result as normal/abnormal . NRBC x10^3 (test code <0.01 See_Comment [Auto mated = 9059757362) message] The s ystem which generated this result transmitted reference range : 10*3/?L. The reference range was not used to interpret this result as normal/abnormal . GRAN MAT (NEUT) % 77.9 % (test code = 770-8) IMM GRAN % (test code 0.50 % = 5843220527) LYMPH % (test code = 7.8 % 736-9) MONO % (test code = 10.7 % 5905-5) EOS % (test code = 2.8 % 713-8) BASO % (test code = 0.3 % 706-2) GRAN MAT x10^3(ANC) 4.67 10*3/uL 1.88-7.09 (test code = 7239594562) IMM GRAN x10^3 (test 0.03 10*3/uL 0-0.06 code = 6251021176) LYMPH x10^3 (test code 0.47 10*3/uL 1.32-3.29 L = 731-0) MONO x10^3 (test code 0.64 10*3/uL 0.33-0.92 = 742-7) EOS x10^3 (test code = 0.17 10*3/uL 0.03-0.39 711-2) BASO x10^3 (test code <0.03 0.01-0.07 = 704-7) Lab Interpretation Abnormal (test code = 23716-1) [facility] GLUCOSE (AUTOMATED)2019-03-13 01:38:00 Test Item Value Reference Range Interpretation Comments POCT GLU (test code = 8359653458) 232 mg/dL 70-110 H Lab Interpretation (test code = Abnormal 51188-2) [facility] GLUCOSE (AUTOMATED)2019-03-12 21:07:00 Test Item Value Reference Range Interpretation Comments POCT GLU (test code = 8015412988) 220 mg/dL 70-110 H Lab Interpretation (test code = Abnormal 51348-0) [facility] GLUCOSE (AUTOMATED)2019-03-12 16:39:00 Test Item Value Reference Range Interpretation Comments POCT GLU (test code = 0869531305) 198 mg/dL 70-110 H Lab Interpretation (test code = Abnormal 53106-1) [facility] GLUCOSE (AUTOMATED)2019-03-12 12:45:00 Test Item Value Reference Range Interpretation Comments POCT GLU (test code = 6829715195) 65 mg/dL 70-110 L Lab Interpretation (test code = Abnormal 98778-6) [facility] GLUCOSE (AUTOMATED)2019-03-12 02:06:00 Test Item Value Reference Range Interpretation Comments POCT GLU (test code = 9423171348) 114 mg/dL 70-110 H Lab Interpretation (test code = Abnormal 07023-4) [facility] NEGATIVE BLOOD PATHOGENS DNA [id number] 00:57:00 Test Item Value Reference Range Interpretation Comments Escherichia coli (test Positive Negative A code = 02512-6) KENA (test code = KENA) See blood culture result for additional information.?Testing included eight identification and six resistance marker targets. Lab Interpretation Abnormal (test code = 12711-6) [facility] GLUCOSE (AUTOMATED)2019-03-11 21:32:00 Test Item Value Reference Range Interpretation Comments POCT GLU (test code = 4058880357) 100 mg/dL 70-110 Lab Interpretation (test code = Normal 14094-4) [facility]11 19:23:00 Test Item Value Reference [...] Indicated Lab Interpretation Abnormal (test code = 77992-4) [facility] GLUCOSE (AUTOMATED)2019-03-11 17:05:00 Test Item Value Reference Range Interpretation Comments POCT GLU (test code = 8976139118) 102 mg/dL 70-110 Lab Interpretation (test code = Normal 19806-3) [facility] (NA, K, CL, CO2, GLUCOSE, BUN, CREATININE, CA)2019-03-11 13:04:00 Test Item Value Reference Range Interpretation Comments NA (test code = 141 mmol/L 135-145 5963931657) K (test code = 4.2 mmol/L 3.5-5 3931835000) CL (test code = 103 mmol/L 98-108 5498859099) CO2 TOTAL (test code = 32 mmol/L 23-31 H 0252706072) AGAP (test code = 2-16 0239872479) BUN (test code = 23 mg/dL 7-23 8571947004) GLUCOSE (test code = 84 mg/dL 70-110 3678902088) CREATININE (test code = 0.82 mg/dL 0.5-1.04 0937897356) CALCIUM (test code = 8.6 mg/dL 8.6-10.6 8218846784) eGFR Calculation mL/min/1.73m2 (Non-) (test code = 7251678893) eGFR Calculation mL/min/1.73m2 () (test code = 6093027564) KENA (test code = KENA) Association of [...] tests). Lab Interpretation Abnormal (test code = 60028-9) [facility]2019-03-11 12:58:00 Test Item Value Reference Range Interpretation Comments POCT GLU (test code = 1143875231) 73 mg/dL 70-110 Lab Interpretation (test code = Normal 68210-0) [facility] WITH [id number] 12:04:00 Test Item Value Reference Range Interpretation Comments WBC (test code = See_Comment [Automated 0780-2) message] The sy stem which generated this result transmitted reference range : 4.30 - 11.10 10*3/?L. The reference range was not used to interpret this result as normal/abnormal . RBC (test code = See_Comment [Automated 474-8) message] The sy stem which generated this [...] RDW-SD (test code = 47.1 fL 39-49.9 03066-0) RDW-CV (test code = 14.2 % 12-15.5 788-0) PLT (test code = See_Comment L [Automated 777-3) message] The sy stem which generated this result transmitted reference range : 166 - 358 10*3/ ?L. The reference r ilan was not used to interpret this result as normal/abnormal . MPV (test code = 12.7 fL 9.5-12.9 72181-3) NRBC/100 WBC (test See_Comment [Automat ed code = 8223595499) message] The system which generated this result transmitted reference range : 0.0 - 10.0 /100 WBCs. The refer ence range was not u sed to interpret th is result as normal/abnormal . NRBC x10^3 (test code <0.01 See_Comment [Auto mated = 8305390357) message] The s ystem which generated this result transmitted reference range : 10*3/?L. The reference range was not used to interpret this result as normal/abnormal . GRAN MAT (NEUT) % 85.3 % (test code = 770-8) IMM GRAN % (test code 0.40 % = 0620278914) LYMPH % (test code = 6.0 % 736-9) MONO % (test code = 7.9 % 5905-5) EOS % (test code = 0.2 % 713-8) BASO % (test code = 0.2 % 706-2) GRAN MAT x10^3(ANC) 8.01 10*3/uL 1.88-7.09 H (test code = 9314525471) IMM GRAN x10^3 (test 0.04 10*3/uL 0-0.06 code = 9201223373) LYMPH x10^3 (test code 0.56 10*3/uL 1.32-3.29 L = 731-0) MONO x10^3 (test code 0.74 10*3/uL 0.33-0.92 = 742-7) EOS x10^3 (test code = <0.03 0.03-0.39 L 711-2) BASO x10^3 (test code <0.03 0.01-0.07 = 704-7) Lab Interpretation Abnormal (test code = 13000-9) [facility] 04:01:00 Test Item Value Reference Range Interpretation Comments POCT GLU (test code = 128 mg/dL 70-110 H 8300638909) KENA (test code = KENA) Notified Provider Lab Interpretation (test Abnormal code = 91059-0) [facility] 1 [id number] 02:45:38 Cardiomegaly, bilateral mild pulmonary edema. No [...] right humeral head. Prior left distal clavicleresection. In[facility], Radiant Results InftUser - 03/10/2019 9:47 PM [...] this study and agree with the abovereport. [facility] 02:12:00 Test Item Value Reference Range Interpretation Comments DIGOXIN (test code = 1.0 ng/mL 0.8-1.6 0028655192) KENA (test code = KENA) Arrythmias:?1.5 - 2.0 ng/mLToxic Range:? Greater than or equal to 2.4 ng/mL Lab Interpretation (test Normal code = 96386-5) [facility] [id number] 01:22:00 Test Item Value Reference Range Interpretation Comments TROPONIN I (test <0.012 See_Comment [Automated code = 1072771818) message] The system which generated this result [...] ? Lab Interpretation Normal (test code = 06893-6) [facility] (NA, K, CL, CO2, GLUCOSE, BUN, CREATININE, CA)2019-03-11 01:11:00 Test Item Value Reference Range Interpretation Comments NA (test code = 138 mmol/L 135-145 4086723898) K (test code = 5.2 mmol/L 3.5-5 H 4480541831) CL (test code = 97 mmol/L 98-108 L 1513212576) CO2 TOTAL (test code = 29 mmol/L 23-31 3113135881) AGAP (test code = 2-16 5096544837) BUN (test code = 26 mg/dL 7-23 H 9063849567) GLUCOSE (test code = 259 mg/dL 70-110 H 8376724709) CREATININE (test code = 0.78 mg/dL 0.5-1.04 4032905651) CALCIUM (test code = 9.1 mg/dL 8.6-10.6 9470123555) eGFR Calculation mL/min/1.73m2 (Non-) (test code = 9874500126) eGFR Calculation mL/min/1.73m2 () (test code = 1978124844) KENA (test code = KENA) Association of [...] tests). Lab Interpretation Abnormal (test code = 17374-3) [facility] (ALB, T.PRO, BILI T, BU/BC, ALT, AST, ALK PHOS)2019-03-11 01:11:00 Test Item Value Reference Range Interpretation Comments TOTAL BILI (test code = 2362909315) 0.6 mg/dL 0.1-1.1 BILI UNCON (test code = 4001066752) 0.4 mg/dL 0.1-1.1 BILI CONJ (test code = 4112257181) 0.0 mg/dL 0-0.3 T PROTEIN (test code = 0674059766) 7.6 g/dL 6.3-8.2 ALBUMIN (test code = 9790563994) 4.5 g/dL 3.5-5 ALK PHOS (test code = 3668531527) 95 U/L 34-122 ALT(SGPT) (test code = 3490920121) 21 U/L 9-51 AST(SGOT) (test code = 8470388628) 23 U/L 13-40 Lab Interpretation (test code = Normal 68351-8) [facility] [id number] 01:11:00 Test Item Value Reference Range Interpretation Comments LIPASE (test code = 0493850724) 25 U/L 0-220 Lab Interpretation (test code = Normal 08443-1) [facility]2019-[facility]-03 01:07:00 Test Item Value Reference Range Interpretation Comments APPEARANCE (test code Slightly Cloudy Clear A = 9688258077) COLOR (test code = Yellow Yellow 7391808359) PH (test code = 4.8-8.0 4341021657) SP GRAVITY (test code 1.003-1.030 = 1587083412) GLU U QUAL (test code >1000 mg/dL Negative A = 5959274907) BLOOD (test code = Large Negative A 9682352069) KETONES (test code = Negative Negative 4147349049) PROTEIN (test code = 100 mg/dL Negative A 2887-8) UROBILIN (test code = 0.2 mg/dL See_Comment [Auto mated 3321806250) message] The system which generated this result transmit rayna reference range : 0-1.0 mg/dL. Th e reference range was not used to interpret this result as normal/abnormal . BILIRUBIN (test code Negative Negative = 7201966550) NITRITE (test code = Positive Negative A 4431909114) LEUK TORSTEN (test code Small Negative A = 0746855107) RBC/HPF (test code = See_Comment H [Autom ated 1705065752) message] The system which generated this result transmit rayna reference range : 0 - 3 HPF. The reference range was not used to interpret this result as normal/abnormal . WBC/HPF (test code = >182 See_Comment H [Autom ated 6144026006) message] The system which generated this result transmit rayna reference range : 0 - 5 HPF. The reference range was not used to interpret this result as normal/abnormal . BACTERIA (test code = Many Negative A 7468600847) AMORPHOUS (test code Moderate HPF = 2595610084) Lab Interpretation Abnormal (test code = 82333-0) [facility] WITH [id number] 00:56:00 Test Item Value Reference Range Interpretation [...] RDW-SD (test code = 45.3 fL 39-49.9 04998-7) RDW-CV (test code = 14.1 % 12-15.5 788-0) PLT (test code = See_Comment [Automated 777-3) message] The sy stem which generated this result transmitted reference range : 166 - 358 10*3/ ?L. The reference r ilan was not used to interpret this result as normal/abnormal . MPV (test code = 12.6 fL 9.5-12.9 73365-2) NRBC/100 WBC (test See_Comment [Automat ed code = 9631815561) message] The system which generated this result transmitted reference range : 0.0 - 10.0 /100 WBCs. The refer ence range was not u sed to interpret th is result as normal/abnormal . NRBC x10^3 (test code <0.01 See_Comment [Auto mated = 1235404069) message] The s ystem which generated this result transmitted reference range : 10*3/?L. The reference range was not used to interpret this result as normal/abnormal . GRAN MAT (NEUT) % 90.0 % (test code = 770-8) IMM GRAN % (test code 0.30 % = 1660589987) LYMPH % (test code = 4.1 % 736-9) MONO % (test code = 3.9 % 5905-5) EOS % (test code = 1.5 % 713-8) BASO % (test code = 0.2 % 706-2) GRAN MAT x10^3(ANC) 8.35 10*3/uL 1.88-7.09 H (test code = 3594505651) IMM GRAN x10^3 (test 0.03 10*3/uL 0-0.06 code = 0322168004) LYMPH x10^3 (test code 0.38 10*3/uL 1.32-3.29 L = 731-0) MONO x10^3 (test code 0.36 10*3/uL 0.33-0.92 = 742-7) EOS x10^3 (test code = 0.14 10*3/uL 0.03-0.39 711-2) BASO x10^3 (test code <0.03 0.01-0.07 = 704-7) Lab Interpretation Abnormal (test code = 09352-0) [facility] Whole [id number] 00:03:00 Test Item Value Reference Range Interpretation Comments LACTIC ACID (test code = 1.88 mmol/L 0.5-2.2 7867093576) Lab Interpretation (test code = Normal 52914-4) [facility]
[2021-10-18 22:24] LABS: Absolute Lymphocytes (CBC) 0.3 K/uL (0.7-4.9); Hematocrit 29.5 % (36.0-45.0); MPV 9.1 fL (7.6-11.3); RBC Red Blood Cell Count 4.05 M/uL (3.86-4.86)
[2021-10-18] MEDS ORDERED: HYDROCODONE/CHLORPHEN 5 ML/OSYR ONE (22:32)
[2021-10-18] MEDS ORDERED: LEVALBUTEROL 1.25 MG/3 ML NEB ONE (22:32)
[2021-10-18 22:36] LABS: Protime INR 1.45
[2021-10-18 22:42] LABS: Albumin 3.6 g/dL (3.4-5.0); Bilirubin Total 0.7 mg/dL (0.2-1.0); Protein, Total 7.3 g/dL (6.4-8.2)
[2021-10-18 23:00] LABS: SARS-COV-2 RT PCR NEGATIVE (NEGATIVE)
[2021-10-18] MEDS ORDERED: NA CHLORIDE 0.9% 250 ML ONE (23:32)
[2021-10-18] MEDS ORDERED: AZITHROMYCIN 500 MG INJ IVPB ONE (23:32)
--- NOTE | 2021-10-19 00:01 | EDPHYS ---
Physician Documentation [facility] Name: Minda Mcdowell Age: 86 yrs Sex: Female : 1935 Arrival Date: 10/18/2021 Time: 20:20 Bed 23 Private MD: ED Physician Robbin Booth HPI: 10/18 23:51 This 86 yrs old Female presents to ER via Wheelchair with complaints of pm1 Nausea/Vomiting/Diarrhea, Decreased Appetite. 23:51 The patient presents to the emergency department with vomiting, diarrhea, shortness of pm1 breath. Onset: The symptoms/episode began/occurred 3 day(s) ago. Possible causes: unknown. The symptoms are aggravated by nothing. The symptoms are alleviated by nothing. Associated signs and symptoms: Pertinent positives: productive cough, Pertinent negatives: abdominal pain, fever. Severity of symptoms: in the emergency department the symptoms are worse. The patient has been recently seen by a physician: the patient's primary care provider, Dr. Garcia with similar presenting complaints. Patient reports O2 sats 89% at home. Patient with productive cough with shortness of breath. Patient does not use home oxygenation. Historical: - Allergies: 21:28 Keflex; bb 21:28 Levaquin; bb 21:28 PENICILLINS; bb 21:28 Vancomycin; bb - PMHx: 21:28 CHF; diabetes mellitus; heart disease; Hypercholesterolemia; Hypertensive disorder; bb - PSHx: 21:28 Cholecystectomy; bb - Immunization history:: Client reports receiving the 2nd dose of the Covid vaccine, Moderna. - Social history:: Smoking status: Patient denies any tobacco usage or history of. ROS: 23:51 Cardiovascular: Negative for chest pain, palpitations, and edema. pm1 23:51 Back: Negative for injury and pain, MS/Extremity: Negative for injury and deformity, Skin: Negative for injury, rash, and discoloration, Neuro: Negative for headache, weakness, numbness, tingling, and seizure. 23:51 Constitutional: Positive for poor PO intake, Negative for fever. 23:51 Respiratory: Positive for cough, with yellow sputum, shortness of breath. 23:51 Abdomen/GI: Positive for nausea, vomiting, and diarrhea, Negative for abdominal pain, constipation. 23:51 All other systems are negative. Exam: 23:51 Constitutional: This is a well developed, well nourished patient who is awake, alert, pm1 and in no acute distress. Head/Face: Normocephalic, atraumatic. 23:51 Back: No spinal tenderness. No costovertebral tenderness. Full range of motion. Skin: Warm, dry with normal turgor. Normal color with no rashes, no lesions, and no evidence of cellulitis. MS/ Extremity: Pulses equal, no cyanosis. Neurovascular intact. Full, normal range of motion. 23:51 Eyes: Exam is negative for acute changes, Periorbital structures: appear normal, Extraocular movements: Strabismus present. 23:51 ENT: Exam is negative for acute changes, Mouth: Lips: normal, moist, Oral mucosa: normal, pink and intact, moist. 23:51 Cardiovascular: Exam negative for acute changes, Rate: tachycardic, Rhythm: regular, Pulses: no pulse deficits are appreciated. 23:51 Respiratory: Exam negative for acute changes, respiratory distress, shortness of breath, Breath sounds: bronchial sounds, are heard diffusely, decreased breath sounds, are located in both bases. 23:51 Abdomen/GI: Exam negative for acute changes, Inspection: abdomen appears normal, Palpation: abdomen is soft and non-tender, in all quadrants. 23:51 Neuro: Exam negative for acute changes, Orientation: is normal, Mentation: is normal, Motor: is normal, moves all fours. 10/19 00:12 Abdomen/GI: Rectal exam: rectal tone normal, Stool: brown, guaiac negative, pm1 hemorrhoid(s), external, without inflammation, without thrombosis, without pain. Vital Signs: 10/18 21:25 BP 131 / 71; Pulse 103; Resp 22 S; Temp 98.9(O); Pulse Ox 93% on R/A; Weight 88.45 kg bb (R); Height 5 ft. 7 in. (170.18 cm) (R); Pain 7/10; 21:55 Pulse 93; Resp 35; Temp 98.9(O); Pulse Ox 92% on R/A; Pain 10/10; al4 22:16 BP 137 / 78; Pulse 102; Resp 24 S; Pulse Ox 94% on R/A; al4 23:15 BP 116 / 53; Pulse 86; Resp 23 S; Pulse Ox 90% on R/A; al4 10/19 01:00 BP 123 / 58; Pulse 84; Resp 17; Pulse Ox 100% on 2 lpm NC; al4 10/18 21:25 Body Mass Index 30.54 (88.45 kg, 170.18 cm) bb MDM: 10/18 21:33 Patient medically screened. pm1 22:10 ED course: 30 mL/kg bolus not given because patient with history CHF and is a possible pm1 differential. Patient with productive sounding cough. 23:41 Data reviewed: vital signs. Data interpreted: Pulse oximetry: on room air is 94 %. pm1 Interpretation: borderline. 23:57 Counseling: I had a detailed discussion with the patient and/or guardian regarding: the pm1 historical points, exam findings, and any diagnostic results supporting the discharge/admit diagnosis, lab results, radiology results, the need for further work-up and treatment in the hospital. 23:57 Physician consultation: Renato FRANCISCO regarding admission, patient's condition, and pm1 will see patient in ED, shortly, admission inpatient. 10/18 21:33 Order name: COVID-19/FLU A+B (Document "Date of Onset" if Symptomatic); Complete Time: pm1 23:08 10/18 21:33 Order name: Blood Culture Adult (2) pm1 10/18 21:33 Order name: CBC with Diff; Complete Time: 22:58 pm1 10/18 21:33 Order name: CMP; Complete Time: 22:58 pm1 10/18 21:33 Order name: Lactate; Complete Time: 22:58 pm1 10/18 21:33 Order name: Protime (+inr); Complete Time: 22:58 pm1 10/18 21:33 Order name: Ptt, Activated; Complete Time: 22:58 pm1 10/18 21:33 Order name: Urine Microscopic Only pm1 10/18 22:02 Order name: Glucose, Ancillary Testing; Complete Time: 22:02 EDMS 10/18 23:49 Order name: BNP; Complete Time: 01:41 la1 10/19 01:49 Order name: Lactate Sepsis 2 HR Follow-up; Complete Time: 01:57 EDMS 10/19 03:57 Order name: CBC with Automated Diff EDMS 10/19 04:09 Order name: Comprehensive Metabolic Panel EDMS 10/19 04:09 Order name: Transferrin Sat/Iron Binding EDMS 10/18 21:33 Order name: Chest Single View XRAY pm1 10/18 21:33 Order name: Accucheck; Complete Time: 22:17 pm1 10/18 21:33 Order name: Cardiac monitoring; Complete Time: 22:17 pm1 10/18 21:33 Order name: EKG - Nurse/Tech; Complete Time: 22:17 pm1 10/18 21:33 Order name: IV Saline Lock - Large Bore; Complete Time: 22:17 pm1 10/18 21:33 Order name: Labs collected and sent; Complete Time: 22:17 pm1 10/18 21:33 Order name: O2 Per Protocol; Complete Time: 22:17 pm1 10/18 21:33 Order name: O2 Sat Monitoring; Complete Time: 22:17 pm1 10/19 04:09 Order name: Ferritin EDMS 10/19 05:45 Order name: XRAY Chest (1 view) bb 10/19 07:52 Order name: RAD EDMS 10/19 09:20 Order name: Glucose, Ancillary Testing EDMS 10/19 11:59 Order name: Glucose, Ancillary Testing EDMS Administered Medications: 22:37 Drug: Xopenex (levalbuterol) (3) 1.25 mg Route: Inhalation; al4 23:30 Follow up: Response: No adverse reaction al4 22:37 Drug: Tussionex Pennkinetic ER (chlorpheniramine-hydrocodone) Suspension 5 ml Route: PO;al4 23:30 Follow up: Response: No adverse reaction al4 23:31 Drug: AZITHromycin 500 mg Route: IVPB; Infused Over: 1 hrs; Site: left antecubital; al4 Disposition Summary: 10/19/21 00:00 Hospitalization Ordered Hospitalization Status: Inpatient Admission pm1 Provider: Chava Abbott pm1 Condition: Stable pm1 Problem: new pm1 Symptoms: have improved pm1 Bed/Room Type: Standard pm1 Location: Telemetry/MedSurg (Inpatient)(10/19/21 14:02) bd Room Assignment: 232(10/19/21 14:02) bd Diagnosis - Hypoxia pm1 - Pneumonia, unspecified organism pm1 Forms: - Medication Reconciliation Form pm1 - SBAR form pm1 Addendum: 11/04/2021 06:07 Co-signature as Attending Physician, Robbin Booth MD. [facility] [place] Signatures: Dispatcher [employer] EDMissy Alexander Martha, RN RN mw Esperanza Blanchard RN RN bb Joao Kathleen, CHIEF OPERATOR HYDROFORMER CHIEF OPERATOR HYDROFORMER pm1 Robbin Booth MD MD [facility] Sabino Rivera Corrections: (The following items were deleted from the chart) 10/19 00: 00:00 Telemetry/MedSurg (Inpatient) pm1 mw : 00:00 pm1 mw 14: 00:31 [facility] ER HOLD mw 14: 00:31 ERHOLD- mw
--- NOTE | 2021-10-19 00:01 | ER ---
Nurse's Notes [facility] Name: Minda Mcdowell Age: 86 yrs Sex: Female : 1935 Arrival Date: 10/18/2021 Time: 20:20 Bed 23 Private MD: Diagnosis: Hypoxia;Pneumonia, unspecified organism Presentation: 10/18 21:25 Chief complaint: Patient states: she has a persistent cough starting Jeremy today she bb has had vomiting and diarrhea also has a headache. Coronavirus screen: cough unrelated to allergies, headache, Client presents with at least one sign or symptom that may indicate coronavirus-19. Standard/surgical mask placed on the client. Ebola Screen: No symptoms or risks identified at this time. Initial Sepsis Screen: Does the patient meet any 2 criteria? RR > 20 per min. HR > 90 bpm. Yes Does the patient have a suspected source of infection? Yes: Productive cough/pneumonia. Risk Assessment: Do you want to hurt yourself or someone else? Patient reports no desire to harm self or others. Onset of symptoms was October 14, 2021. 21:25 Method Of Arrival: Wheelchair bb 21:25 Acuity: HARMONY 2 bb Historical: - Allergies: 21:28 Keflex; bb 21:28 Levaquin; bb 21:28 PENICILLINS; bb 21:28 Vancomycin; bb - PMHx: 21:28 CHF; diabetes mellitus; heart disease; Hypercholesterolemia; Hypertensive disorder; bb - PSHx: 21:28 Cholecystectomy; bb - Immunization history:: Client reports receiving the 2nd dose of the Covid vaccine, Moderna. - Social history:: Smoking status: Patient denies any tobacco usage or history of. Screenin:24 Abuse screen: Denies threats or abuse. Nutritional screening: No deficits noted. al4 Tuberculosis screening: No symptoms or risk factors identified. Assessment: 22:20 General: Appears uncomfortable, Behavior is calm, cooperative. Pain: Complains of pain al4 in headache Pain currently is 10 out of 10 on a pain scale. Neuro: Level of Consciousness is awake, alert, obeys commands, Oriented to person, place, time, situation, Speech is normal, Facial symmetry appears normal. Cardiovascular: Capillary refill < 3 seconds Patient's skin is warm and dry. Respiratory: Airway is patent Respiratory effort is even, unlabored, Respiratory pattern is regular, Breath sounds with wheezes bilaterally. the patient has mild shortness of breath. GI: Abdomen is non-distended, Reports nausea, vomiting, since today. Derm: Skin is pink, warm \\T\\ dry. Musculoskeletal: Circulation, motion, and sensation intact. 23:20 Reassessment: Patient appears in no apparent distress at this time. Patient and/or al4 family updated on plan of care and expected duration. Pain level reassessed. 10/19 00:15 Reassessment: Patient appears in no apparent distress at this time. Patient and/or al4 family updated on plan of care and expected duration. Pain level reassessed. 01:17 Reassessment: Patient appears in no apparent distress at this time. Patient and/or al4 family updated on plan of care and expected duration. Pain level reassessed. Vital Signs: 10/18 21:25 BP 131 / 71; Pulse 103; Resp 22 S; Temp 98.9(O); Pulse Ox 93% on R/A; Weight 88.45 kg bb (R); Height 5 ft. 7 in. (170.18 cm) (R); Pain 7/10; 21:55 Pulse 93; Resp 35; Temp 98.9(O); Pulse Ox 92% on R/A; Pain 10/10; al4 22:16 BP 137 / 78; Pulse 102; Resp 24 S; Pulse Ox 94% on R/A; al4 23:15 BP 116 / 53; Pulse 86; Resp 23 S; Pulse Ox 90% on R/A; al4 10/19 01:00 BP 123 / 58; Pulse 84; Resp 17; Pulse Ox 100% on 2 lpm NC; al4 10/18 21:25 Body Mass Index 30.54 (88.45 kg, 170.18 cm) bb ED Course: 10/18 20:20 Patient arrived in ED. ja2 21:28 Triage completed. bb 21:28 Arm band placed on Patient placed in an exam room. Family accompanied patient. bb 21:29 Joao Kathleen NP is PHCP. pm1 21:29 Robbin Booth MD is Attending Physician. pm1 22:10 Patient has correct armband on for positive identification. Bed in low position. al4 quality assurance monitor body on. Pulse ox on. NIBP on. 22:17 Sabino Rivera is Primary Nurse. al4 22:17 Blood Culture Adult (2) Sent. al4 22:17 CBC with Diff Sent. al4 22:17 CMP Sent. al4 22:17 Lactate Sent. al4 22:17 Protime (+inr) Sent. al4 22:17 Ptt, Activated Sent. al4 22:17 Urine Microscopic Only Sent. al4 22:17 COVID-19/FLU A+B (Document "Date of Onset" if Symptomatic) Sent. al4 22:20 Chest Single View XRAY In Process Unspecified. EDMS 22:24 Inserted saline lock: 20 gauge in left antecubital area, using aseptic technique. al4 ,using aseptic technique. by Sabino Blanco RN Blood collected. 22:45 Notified ED physician of a critical lab result(s). lactate 2.1. tw5 23:59 Chava Abbott MD is Hospitalizing Provider. pm1 10/19 00:15 Served as a human resources designate during rectal exam. al4 01:18 Patient admitted, IV remains in place. al4 Administered Medications: 10/18 22:37 Drug: Xopenex (levalbuterol) (3) 1.25 mg Route: Inhalation; al4 23:30 Follow up: Response: No adverse reaction al4 22:37 Drug: Tussionex Pennkinetic ER (chlorpheniramine-hydrocodone) Suspension 5 ml Route: PO;al4 23:30 Follow up: Response: No adverse reaction al4 23:31 Drug: AZITHromycin 500 mg Route: IVPB; Infused Over: 1 hrs; Site: left antecubital; al4 Outcome: 10/19 00:00 Decision to Hospitalize by Provider. pm1 01:18 Admitted to ER Hold. Please see [facility] for further documentation. al4 01:18 Condition: stable 01:18 Instructed on the need for admit, Demonstrated understanding of instructions. 15:24 Patient left the ED. ab2 Signatures: Dispatcher [employer] EDMS Esperanza Blanchard RN RN Joao Cheema, [employer] OFFICER [employer] OFFICER pm1 Merlyn Nunez Tiffany tw5 Sabino Rivera al4 Sabino Thomas ab2 Corrections: (The following items were deleted from the chart) 04:58 10/18 21:55 Pulse 93bpm; Resp 35bpm; Pulse Ox 92% RA; Temp 98.9F; Pain 10/10; al4 al4
--- NOTE | 2021-10-19 01:20 | P.HP ---
Certification for Inpatient Patient admitted to: Inpatient With expected LOS: >2 Midnights Patient will require the following post-hospital care: None Practitioner: I am a practitioner with admitting privileges, knowledge of patient current condition, hospital course, and medical plan of care. Services: Services provided to patient in accordance with Admission requirements found in Title 42 Section 412.3 of the Code of Federal Regulations Patient History Date of Service: 10/19/21 Reason for admission: Dyspnea, hypoxia History of Present Illness: 86-year-old female with history of CHF, diabetes mellitus type 2insulin-dependent, hypertension, hyperlipidemia presents to the emergency department for difficulty breathing. Patient reports ever since Sunday she has had nausea, vomiting, diarrhea as well as a cough which has been productive and shortness of breath. Patient was mildly hypoxic on room air 89%. Patient was evaluated here in the emergency department her labs were significant for hemoglobin of 9.0 hematocrit 29.5 MCV 72.8 stool guaiac was negative sodium 133 GFR 57 glucose 238 lactic acid 2.1 urinalysis pending influenza and Covid negative chest x-ray suspicious for possible pneumonia versus chronic lung changes patient with expiratory wheezing and persistent cough. ED provider wishes to admit for further evaluation and management. Allergies cephalexin [From Keflex] Allergy (Verified 09/20/21 12:43) Itching/Hives/Rash levofloxacin [From Levaquin] Allergy (Verified 09/20/21 12:43) Itching/Hives/Rash Penicillins Allergy (Verified 09/20/21 12:43) Anaphylaxis vancomycin Allergy (Verified 09/20/21 12:43) Itching/Hives/Rash Home Medications: Amlodipine [Norvasc] 5 mg PO DAILY 10/03/21 Apixaban [Eliquis] 5 mg PO BID 10/03/21 Ascorbic Acid [C-1000] 1,000 mg PO DAILY 10/03/21 Atorvastatin Calcium [Lipitor] 20 mg PO BEDTIME 10/03/21 Carvedilol [Coreg] 25 mg PO BID 10/03/21 Digoxin 125 mcg PO M,W,F 10/03/21 Furosemide [Lasix] 40 mg PO DAILY 10/03/21 Gabapentin 300 mg PO DAILY 10/03/21 Insulin Glargine,Hum.rec.anlog [Basaglar Kwikpen U-100] 20 unit SQ BID 10/03/21 Magnesium Oxide [Magnesium] 500 mg PO DAILY 10/03/21 Meclizine HCl 25 mg PO DAILY PRN 10/03/21 Omeprazole [Prilosec] 40 mg PO DAILY 10/03/21 Ropinirole HCl 2 mg PO TID 10/03/21 Sitagliptin Phosphate [Januvia] 100 mg PO DAILY 10/03/21 - Past Medical/Surgical History Diabetic: Yes -: CHF-Unkown -: DMII-insulin dependent -: HTN -: HLD -: Afib on chronic anticoagulation -: right knee joint replacement 2010 -: appendix removal 1955 -: gallbladder removal -: TLH-total laproscopic hysterectomy -: bilateral shoulder surgery Psychosocial/ Personal History: Lives at home with her daughter/grandaughter - Family History Father -: Heart disease Brother -: Cancer Sister -: Cancer - Social History Smoking Status: Never smoker Alcohol use: No Place of Residence: Home Review of Systems 10-point ROS is otherwise unremarkable Respiratory: Cough, Shortness of Breath, SOB with Excertion, Sputum, Wheezing Gastrointestinal: Nausea, Vomiting, Diarrhea Physical Examination - Physical Exam General: Alert, In no apparent distress, Oriented x3 HEENT: Atraumatic, PERRLA, Mucous membr. moist/pink, EOMI, Sclerae nonicteric Neck: Supple, 2+ carotid pulse no bruit, No LAD, Without JVD or thyroid abnormality Respiratory: Expiratory wheezes, Rhonchi/gurgles Cardiovascular: Irregular heart rate/rhythm (A fib rate controlled) Capillary refill: <2 Seconds Gastrointestinal: Normal bowel sounds, No tenderness, No rebound, No guarding, Hyperactive Musculoskeletal: No erythema, No tenderness Integumentary: No rashes Neurological: Normal speech, Normal strength at 5/5 x4 extr, Normal tone, Normal affect - Studies Laboratory Data (last 24 hrs) 10/18/21 22:10: PT 16.1 H, INR 1.45, APTT 39.8 H 10/18/21 22:10: Sodium 133 L, Potassium 5.0, BUN 16, Creatinine 0.93, Glucose 238 H, Total Bilirubin 0.7, AST 16, ALT 22, Alkaline Phosphatase 153 H 10/18/21 22:10: WBC 10.5, Hgb 9.0 L, Hct 29.5 L, Plt Count 259 Assessment and Plan - Plan Assessment: Dyspnea, hypoxia bronchitis versus early pneumonia Nausea, vomiting, diarrhea Acute on chronic CHFunknown EF Microcytic anemia Diabetes mellitus type 2insulin-dependent Atrial fibrillation on chronic anticoagulation Hypertension Hyperlipidemia Plan: Dyspnea, hypoxia bronchitis versus early pneumonia: Continue Zithromax patient with multiple other drug allergies that limit options as far as antimicrobial therapy goes. Blood cultures were obtained repeat chest x-ray to evaluate for pneumonia in the morning, daily room air saturations currently on 2 L per nasal cannula. Pulmonology consulted continue with incentive spirometry, as needed nebulizer treatments and cough medication. Patient also with viral symptoms including GI upset and headache. Negative for flu or Covid. Nausea, vomiting, diarrhea: No abdominal tenderness or distention likely viral syndrome, continue with supportive care. Patient does appear mildly overloaded this evening will continue with Lasix at this time. Acute on chronic CHFunknown EF: No echo available for review, patient reports she has not had to see her case management director in a long time and was told that her heart was doing well previously. Will monitor on telemetry. Continue Lasix. Microcytic anemia: Stool guaiac negative will obtain MANUELA labs Diabetes mellitus type 2insulin-dependent: Patient takes Basaglar 20 units subcu twice daily we will provide with 10 units twice daily of long-acting insulin increase as necessary Atrial fibrillation on chronic anticoagulation: Continue Eliquis, other home medications and monitor on telemetry. Hypertension: Continue home meds Hyperlipidemia: Continue home meds DVT PPX: Continue Eliquis Code status: Full Discharge Plan: Home Plan to discharge in: 48 Hours - Advance Directives Does patient have a Living Will: No Does patient have a Durable POA for Healthcare: No - Code Status/Comfort Care Code Status Assessed: Yes (Full code) Critical Care: No Time Spent Managing Pts Care (In Minutes): 55
[2021-10-19] MEDS ORDERED: ACETAMINOPHEN 500 MG TAB PO PRN (02:27)
[2021-10-19 03:47] VITALS: BMI 30.7
[2021-10-19 03:56] LABS: Absolute Lymphocytes (CBC) 0.2 K/uL (0.7-4.9); Hematocrit 29.5 % (36.0-45.0); Lymphocytes % 2.4 % (15.3-44.8); MPV 9.4 fL (7.6-11.3); RBC Red Blood Cell Count 4.08 M/uL (3.86-4.86)
[2021-10-19 04:08] LABS: Albumin 3.3 g/dL (3.4-5.0); Bilirubin Total 0.6 mg/dL (0.2-1.0); Ferritin 12.3 ng/mL (8-388); Potassium 4.7 mmol/L (3.5-5.1); Protein, Total 6.8 g/dL (6.4-8.2)
[2021-10-19] MEDS ORDERED: ACETAMINOPHEN 500 MG TAB ONE (05:09)
[2021-10-19] MEDS: INSULIN -REGULAR HUMAN 50 UNIT/0.5 ML ML SQ SCH ×4 (07:30→21:00)
--- NOTE | 2021-10-19 07:51 | RAD REPORT ---
EXAM DESCRIPTION: Megan Single View10/19/2021 5:57 am CLINICAL HISTORY: Cough COMPARISON: October 18, 2021 FINDINGS: Mild bilateral interstitial lung opacities. Heart is moderately enlarged IMPRESSION: Mild bilateral interstitial lung opacities without significant change. This may represen t mild interstitial pulmonary edema or atypical pneumonia/pneumonitis
--- NOTE | 2021-10-19 08:46 | P.CNS ---
Date of Consult: 10/19/21 Reason for Consult: Respiratory failure Chief Complaint: Dyspnea, hypoxia History of Present Illness: Patient is 86 years of age metabolic syndrome became sick on Sunday started complaining of wheezing shortness of breath productive cough found to be hypoxic admitted from the emergency room she is no prior history of pulmonary complaints does not smoke no wheezing Allergies cephalexin [From Keflex] Allergy (Verified 09/20/21 12:43) Itching/Hives/Rash levofloxacin [From Levaquin] Allergy (Verified 09/20/21 12:43) Itching/Hives/Rash Penicillins Allergy (Verified 09/20/21 12:43) Anaphylaxis vancomycin Allergy (Verified 09/20/21 12:43) Itching/Hives/Rash Home Medications: Amlodipine [Norvasc] 5 mg PO DAILY 10/03/21 Apixaban [Eliquis] 5 mg PO BID 10/03/21 Ascorbic Acid [C-1000] 1,000 mg PO DAILY 10/03/21 Atorvastatin Calcium [Lipitor] 20 mg PO BEDTIME 10/03/21 Carvedilol [Coreg] 25 mg PO BID 10/03/21 Digoxin 125 mcg PO M,W,F 10/03/21 Furosemide [Lasix] 40 mg PO DAILY 10/03/21 Gabapentin 300 mg PO DAILY 10/03/21 Insulin Glargine,Hum.rec.anlog [Basaglar Kwikpen U-100] 20 unit SQ BID 10/03/21 Magnesium Oxide [Magnesium] 500 mg PO DAILY 10/03/21 Meclizine HCl 25 mg PO DAILY PRN 10/03/21 Omeprazole [Prilosec] 40 mg PO DAILY 10/03/21 Ropinirole HCl 2 mg PO TID 10/03/21 Sitagliptin Phosphate [Januvia] 100 mg PO DAILY 10/03/21 - Past Medical/Surgical History Diabetic: Yes -: CHF-Unkown -: DMII-insulin dependent -: HTN -: HLD -: Afib on chronic anticoagulation -: right knee joint replacement 2010 -: appendix removal 1955 -: gallbladder removal -: TLH-total laproscopic hysterectomy -: bilateral shoulder surgery Psychosocial/ Personal History: Lives at home with her daughter/grandaughter - Family History Father Medical History: Heart disease Brother Medical History: Cancer Sister Medical History: Cancer - Social History Alcohol use: No Place of Residence: Home Review of Systems 10-point ROS is otherwise unremarkable General: Weakness Respiratory: Cough, Shortness of Breath Physical Examination Temp Pulse Resp BP Pulse Ox 98.6 F 76 22 H 103/54 L 99 10/19/21 06:59 10/19/21 06:59 10/19/21 06:59 10/19/21 06:59 10/19/21 06:59 General: Alert, Oriented x3, Mild distress Respiratory: Diminished, Crackles/rales, Expiratory wheezes Cardiovascular: Regular rate/rhythm, Normal S1 S2, Edema Gastrointestinal: Normal bowel sounds, Soft and benign Musculoskeletal: No clubbing, No swelling Neurological: Normal speech, Normal strength at 5/5 x4 extr Laboratory Data (last 24 hrs) 10/18/21 22:10: PT 16.1 H, INR 1.45, APTT 39.8 H 10/18/21 22:10: Sodium 133 L, Potassium 5.0, BUN 16, Creatinine 0.93, Glucose 238 H, Total Bilirubin 0.7, AST 16, ALT 22, Alkaline Phosphatase 153 H 10/18/21 22:10: WBC 10.5, Hgb 9.0 L, Hct 29.5 L, Plt Count 259 - Problems (1) CHF (congestive heart failure) Current Visit: No Status: Acute Plan: Patient is 86 years of age metabolic syndrome and admitted with acute dyspnea likely CHF her BNP significantly elevated interstitial changes on chest x-ray vital signs stable oxygenation satisfactory change to p.o. prednisone for now to new with Lasix to p.o. macrolide
[2021-10-19] MEDS ORDERED: METHYLPREDNISOLONE 40 MG INJ IV SCH (09:00)
[2021-10-19] MEDS: FUROSEMIDE 20 MG/ 2ML VIAL IV SCH ×3 (09:00→16:53)
[2021-10-19] MEDS ORDERED: AZITHROMYCIN IV 500 MG in NA CHLORIDE 0.9% 250 ML IVPB SCH (09:00)
[2021-10-19] MEDS ORDERED: predniSONE 20 MG TAB ONE (09:16)
[2021-10-19] MEDS ORDERED: APIXABAN 5 MG TABLET ONE (09:16)
[2021-10-19] MEDS ORDERED: AZITHROMYCIN 250 MG TAB ONE (09:17)
[2021-10-19] MEDS: AZITHROMYCIN 250 MG TAB PO SCH (09:17)
[2021-10-19] MEDS: APIXABAN 5 MG TABLET PO SCH ×2 (09:17→21:14)
[2021-10-19] MEDS ORDERED: FUROSEMIDE 20 MG/ 2ML VIAL ONE (09:17)
[2021-10-19] MEDS: predniSONE 20 MG TAB PO SCH ×2 (09:17→21:14)
[2021-10-19] MEDS: INSULIN GLARGINE 100 UNIT/ML SQ SCH ×2 (09:17→21:16)
[2021-10-19] MEDS ORDERED: INSULIN GLARGINE 100 UNIT/ML SQ ONE (09:19)
--- NOTE | 2021-10-19 10:39 | RAD REPORT ---
EXAM DESCRIPTION: RAD - Chest Single View - 10/18/2021 10:18 pm CLINICAL HISTORY: 86 years, Female, Cough COMPARISON: None. FINDINGS: Single view of the chest was obtained portable. No prior films are available for compariso n. The heart is prominent. The thoracic aorta is tortuous with intimal calcification. Minimal retic ulonodular densities throughout the lungs suggest chronic changes. No significant pleural effusions/o r focal areas of consolidation. Minimal degenerative changes bilateral shoulders. Anchoring screws wi thin the right shoulder suggest previous rotator cuff repair. The rest of the soft tissue and bony structures demonstrate to be unremarkable. IMPRESSION: Minimal reticulonodular densities throughout the lungs suggest chronic changes. No focal areas of acute airspace disease. Electronically signed by: Navjot López MD 10/18/2021 11:01 PM CDT Due to temporary technical issues with the PACS/Fluency reporting system, reports are being signed by the in house radiologist without review as a courtesy to ensure prompt reporting. The interpreting r adiologist is fully responsible for the content of the report.
--- NOTE | 2021-10-19 10:58 | EKG ---
Test Date: 2021-10-18 Test Time: 22:11:27 Biology Specialist: ALEKSANDRA MEASUREMENT RESULTS: Intervals: Rate: 88 MA: QRSD: 98 QT: 370 QTc: 447 Mclean: P: MA: QRS: -28 T: 62 INTERPRETIVE STATEMENTS: Atrial fibrillation Septal infarct, age undetermined Abnormal ECG Compared to ECG 09/15/2021 19:27:55 Myocardial infarct finding now present Electronically Signed On 10-19-21 10:57:12 CDT by Shakir Yung
--- NOTE | 2021-10-19 13:19 | P.PN ---
Subjective Date of Service: 10/19/21 Chief Complaint: Dyspnea, hypoxia Subjective: No new changes, Improving Physical Examination - Vital Signs Temperature: 98.6 F Blood Pressure: 126/61 Pulse: 86 Respirations: 24 Pulse Ox (%): 99 - Physical Exam General: Alert, Oriented x3 HEENT: Atraumatic, Normocephalic Neck: Supple Respiratory: Diminished, Rhonchi/gurgles Cardiovascular: Regular rate/rhythm, Normal S1 S2 Gastrointestinal: Soft and benign Musculoskeletal: No swelling Neurological: Normal speech, Normal strength at 5/5 x4 extr - Studies Laboratory Data (last 24 hrs) 10/18/21 22:10: PT 16.1 H, INR 1.45, APTT 39.8 H 10/18/21 22:10: Sodium 133 L, Potassium 5.0, BUN 16, Creatinine 0.93, Glucose 238 H, Total Bilirubin 0.7, AST 16, ALT 22, Alkaline Phosphatase 153 H 10/18/21 22:10: WBC 10.5, Hgb 9.0 L, Hct 29.5 L, Plt Count 259 Assessment And Plan - Plan Dyspnea, hypoxia bronchitis versus early pneumonia Nausea, vomiting, diarrhea Acute on chronic CHFunknown EF Microcytic anemia Diabetes mellitus type 2insulin-dependent Atrial fibrillation on chronic anticoagulation Hypertension Hyperlipidemia Plan: Dyspnea, hypoxia bronchitis versus early pneumonia: Presently on azithromycin and Rocephin as antimicrobial therapy. We will continue supplemental oxygen. We will continue breathing treatment. Nausea, vomiting, diarrhea: No abdominal tenderness or distention likely viral syndrome, continue with supportive care. Acute on chronic CHFunknown EF: Lasix dose is to be continued. Microcytic anemia: Stool guaiac negative will obtain MANUELA labs. Diabetes mellitus type 2insulin-dependent: We will continue long-acting insulin and sliding scale insulin. Atrial fibrillation on chronic anticoagulation: We will continue Eliquis, other home medications and monitor on telemetry. Hypertension: We will monitor vital signs per unit protocol and continue home meds. Hyperlipidemia: We will continue home meds Prophylaxis: Lovenox for DVT prophylaxis.
[2021-10-19] MEDS ORDERED: IPRATROPIUM BROM 0.5MG/2.5ML ONE (15:15)
[2021-10-19] MEDS ORDERED: ALBUTEROL 2.5 MG/3 ML NEB SOL ONE (15:15)
[2021-10-19] MEDS: ONDANSETRON 4 MG/2 ML VIAL IV PRN (18:15)
[2021-10-19] MEDS: JUVEN PACKET PO SCH (21:00)
[2021-10-20] MEDS: BENZONATATE 100 MG CAP PO PRN ×3 (00:22→21:11)
[2021-10-20] MEDS: ALBUTEROL 2.5 MG/3 ML NEB SOL NEB PRN ×4 (01:25→20:45)
[2021-10-20] MEDS: IPRATROPIUM BROM 0.5MG/2.5ML NEB PRN ×4 (01:25→20:45)
[2021-10-20 05:41] LABS: Absolute Lymphocytes (CBC) 0.2 K/uL (0.7-4.9); Hematocrit 26.8 % (36.0-45.0); MPV 8.4 fL (7.6-11.3); RBC Red Blood Cell Count 3.72 M/uL (3.86-4.86)
[2021-10-20 06:04] LABS: Albumin 3.1 g/dL (3.4-5.0); Bilirubin Total 0.5 mg/dL (0.2-1.0); Potassium 4.5 mmol/L (3.5-5.1); Protein, Total 6.8 g/dL (6.4-8.2)
[2021-10-20] MEDS: INSULIN -REGULAR HUMAN 50 UNIT/0.5 ML ML SQ SCH ×4 (07:30→21:12)
[2021-10-20 08:20] LABS: Blood Morphology Comment NOTED (NOT SEEN); Platelet Estimate ADEQ; White Blood Cell Scan OK (OK)
[2021-10-20 08:21] LABS: Anisocytosis 2+; Hypochromasia 1+; Ovalocytes 1+
[2021-10-20] MEDS: JUVEN PACKET PO SCH ×2 (08:27→21:00)
[2021-10-20] MEDS: FUROSEMIDE 20 MG/ 2ML VIAL IV SCH (08:27)
[2021-10-20] MEDS: AZITHROMYCIN 250 MG TAB PO SCH (08:28)
[2021-10-20] MEDS: INSULIN GLARGINE 100 UNIT/ML SQ SCH ×2 (08:28→21:00)
[2021-10-20] MEDS: predniSONE 20 MG TAB PO SCH ×2 (08:28→21:11)
[2021-10-20] MEDS: APIXABAN 5 MG TABLET PO SCH ×2 (08:28→21:11)
--- NOTE | 2021-10-20 08:31 | ECHO ---
HEIGHT: 5 ft 7 in WEIGHT: 196 lb 0 oz DATE OF STUDY: 10/19/[address]: Navdeep Martinez MD 2-DIMENSIONAL: YES M.MODE: YES DOPPLER: YES COLOR FLOW: YES TDS: NO PORTABLE: YES DEFINITY: NO BUBBLE STUDY: NO DIAGNOSIS: POSSIBLE CONGESTIVE HEART FAILURE CARDIAC HISTORY: CATHERIZATION: NO SURGERY: NO PROSTHETIC VALVE: NO PACEMAKER: NO MEASUREMENTS (cm) DIASTOLIC (NORMALS) SYSTOLIC (NORMALS) IVSd 1.1 (0.6-1.2) LA Diam 4.4 (1.9-4.0) LVEF 40% LVIDd 3.8 (3.5-5.7) LVIDs 3.0 (2.0-3.5) %FS 19% LVPWd 1.2 (0.6-1.2) Ao Diam 2.9 (2.0-3.7) 2 DIMENSIONAL ASSESSMENT: RIGHT ATRIUM: NORMAL LEFT ATRIUM: DILATED RIGHT VENTRICLE: NORMAL LEFT VENTRICLE: NORMAL TRICUSPID VALVE: NORMAL MITRAL VALVE: MITRAL ANNULAR CALCIFICATION PULMONIC VALVE: NORMAL AORTIC VALVE: SCLEROSIS PERICARDIAL EFFUSION: NONE AORTIC ROOT: NORMAL LEFT VENTRICULAR WALL MOTION: MODERATE GLOBAL HYPOKINESIS. DOPPLER/COLOR FLOW: MILD TRICUSPID REGURGITATION. COMMENTS: MODERATE GLOBAL HYPOKINESIS - EJECTION FRACTION 40%. MILD TRICUSPID REGURGITATION - NORMAL RIGHT VENTRICULAR SYSTOLIC PRESSURE. MITRAL ANNULAR CALCIFICATION. AORTIC SCLEROSIS - NO STENOSIS. TECHNOLOGIST: REESE GONZALES
--- NOTE | 2021-10-20 08:43 | P.PN ---
Subjective Date of Service: 10/20/21 Chief Complaint: Dyspnea, hypoxia Subjective: Improving (Improving still wheezing) Review of Systems 10-point ROS is otherwise unremarkable Physical Examination - Vital Signs Temperature: 97.8 F Blood Pressure: 128/59 Pulse: 94 Respirations: 19 Pulse Ox (%): 96 - Physical Exam General: Alert, Oriented x3 Respiratory: Expiratory wheezes Cardiovascular: No edema, Regular rate/rhythm, Normal S1 S2 Gastrointestinal: Normal bowel sounds, Soft and benign Assessment And Plan - Current Problems (Diagnosis) (1) CHF (congestive heart failure) Current Visit: No Status: Acute Plan: Patient is improving still complaining of some wheezing vital signs stable congestive heart failure on n echocardiogram resume diabetic medications add spironolactone add carvedilol need to reconcile home medications Qualifiers: Heart failure type: systolic
[2021-10-20] MEDS: HOME MED 1 EA UNK (Empagliflozin [Jardiance] 10 MG Tablet) PO SCH (09:00)
--- NOTE | 2021-10-20 10:24 | P.PN ---
Subjective Date of Service: 10/20/21 Chief Complaint: Dyspnea, hypoxia Subjective: No new changes, Improving Physical Examination - Vital Signs Temperature: 97.8 F Blood Pressure: 128/59 Pulse: 94 Respirations: 19 Pulse Ox (%): 96 - Physical Exam General: Alert, Oriented x3 HEENT: Atraumatic, Normocephalic Respiratory: Diminished, Crackles/rales Cardiovascular: Regular rate/rhythm, Normal S1 S2 Gastrointestinal: Soft and benign Musculoskeletal: No swelling Neurological: Normal speech, Normal strength at 5/5 x4 extr, Normal reflexes 2+ Assessment And Plan - Plan Dyspnea, hypoxia bronchitis versus early pneumonia Nausea, vomiting, diarrhea Acute on chronic CHFunknown EF Microcytic anemia Diabetes mellitus type 2insulin-dependent Atrial fibrillation on chronic anticoagulation Hypertension Hyperlipidemia Plan: Dyspnea, hypoxia bronchitis versus early pneumonia: Presently on azithromycin and Rocephin as antimicrobial therapy. We will continue supplemental oxygen. We will continue breathing treatment. Nausea, vomiting, diarrhea: Resolved. we will monitor. Acute on chronic CHFunknown EF: Lasix dose is to be continued. Microcytic anemia: Stool guaiac negative will obtain MANUELA labs. Diabetes mellitus type 2insulin-dependent: We will continue long-acting insulin and sliding scale insulin. Atrial fibrillation on chronic anticoagulation: We will continue Eliquis, other home medications and monitor on telemetry. Hypertension: We will monitor vital signs per unit protocol and continue home meds. Hyperlipidemia: We will continue home meds Sacral decubiti: We will continue wound care recs. Prophylaxis: Eliquis for DVT prophylaxis.
[2021-10-20] MEDS: carvediloL 25 MG TAB PO SCH ×2 (10:39→21:11)
[2021-10-20] MEDS: FUROSEMIDE 40 MG TABLET PO SCH (10:39)
[2021-10-20] MEDS: SPIRONOLACTONE 25 MG TABLET PO SCH (10:40)
--- NOTE | 2021-10-20 10:40 | P.CNS ---
Date of Consult: 10/20/21 Reason for Consult: Hyponatremia Requesting Physician: Chava Abbott Chief Complaint: Dyspnea, hypoxia History of Present Illness: 86-year-old female with history of CHF, diabetes mellitus type 2insulin-dependent, hypertension, hyperlipidemia presents to the emergency department for difficulty breathing. Patient reports ever since Sunday she has had nausea, vomiting, diarrhea as well as a cough which has been productive and shortness of breath. Patient was mildly hypoxic on room air 89%. Patient was evaluated here in the emergency department her labs were significant for hemoglobin of 9.0 hematocrit 29.5 MCV 72.8 stool guaiac was negative sodium 133 GFR 57 glucose 238 lactic acid 2.1 urinalysis pending influenza and Covid negative chest x-ray suspicious for possible pneumonia versus chronic lung changes patient with expiratory wheezing and persistent cough. ED provider wishes to admit for further evaluation and management. 23:51 This 86 yrs old Female presents to ER via Wheelchair with complaints of pm1 Nausea/Vomiting/Diarrhea, Decreased Appetite. 23:51 The patient presents to the emergency department with vomiting, diarrhea, shortness of pm1 breath. Onset: The symptoms/episode began/occurred 3 day(s) ago. Possible causes: unknown. The symptoms are aggravated by nothing. The symptoms are alleviated by nothing. Associated signs and symptoms: Pertinent positives: productive cough, Pertinent negatives: abdominal pain, fever. Severity of symptoms: in the emergency department the symptoms are worse. The patient has been recently seen by a physician: the patient's primary care provider, Dr. Garcia with similar presenting complaints. Patient reports O2 sats 89% at home. Patient with productive cough with shortness of breath. Patient does not use home oxygenation. Allergies cephalexin [From Keflex] Allergy (Verified 09/20/21 12:43) Itching/Hives/Rash levofloxacin [From Levaquin] Allergy (Verified 09/20/21 12:43) Itching/Hives/Rash Penicillins Allergy (Verified 09/20/21 12:43) Anaphylaxis vancomycin Allergy (Verified 09/20/21 12:43) Itching/Hives/Rash Home medications list reviewed: Yes Home Medications: Amlodipine [Norvasc] 5 mg PO DAILY 10/03/21 Apixaban [Eliquis] 5 mg PO BID 10/03/21 Ascorbic Acid [C-1000] 1,000 mg PO DAILY 10/03/21 Atorvastatin Calcium [Lipitor] 20 mg PO BEDTIME 10/03/21 Carvedilol [Coreg] 25 mg PO BID 10/03/21 Digoxin 125 mcg PO M,W,F 10/03/21 Furosemide [Lasix] 40 mg PO DAILY 10/03/21 Gabapentin 300 mg PO DAILY 10/03/21 Insulin Glargine,Hum.rec.anlog [Basaglar Kwikpen U-100] 20 unit SQ BID 10/03/21 Magnesium Oxide [Magnesium] 500 mg PO DAILY 10/03/21 Meclizine HCl 25 mg PO DAILY PRN 10/03/21 Omeprazole [Prilosec] 40 mg PO DAILY 10/03/21 Ropinirole HCl 2 mg PO TID 10/03/21 Sitagliptin Phosphate [Januvia] 100 mg PO BEDTIME 10/03/21 Empagliflozin [Jardiance] 10 mg PO DAILY 10/19/21 cloNIDine HCL [Clonidine HCl] 0.1 mg PO PRN PRN 10/19/21 - Past Medical/Surgical History Diabetic: Yes -: CHF-Unkown -: DMII-insulin dependent -: HTN -: HLD -: Afib on chronic anticoagulation -: right knee joint replacement 2010 -: appendix removal 1955 -: gallbladder removal -: TLH-total laproscopic hysterectomy -: bilateral shoulder surgery Psychosocial/ Personal History: Lives at home with her daughter/grandaughter - Family History Father Medical History: Heart disease Brother Medical History: Cancer Sister Medical History: Cancer - Social History Alcohol use: No Place of Residence: Home Review of Systems 10-point ROS is otherwise unremarkable General: Weakness, Malaise Respiratory: Cough Physical Examination Temp Pulse Resp BP Pulse Ox 97.8 F 94 H 19 128/59 L 96 10/20/21 10:24 10/20/21 10:24 10/20/21 10:24 10/20/21 10:24 10/20/21 10:24 General: Oriented x3, Cooperative HEENT: Atraumatic Neck: Supple Respiratory: Expiratory wheezes Cardiovascular: No edema Gastrointestinal: Soft and benign, Non-distended Musculoskeletal: No clubbing, No contractures Integumentary: No rashes, No cyanosis Neurological: Normal speech Blood work reviewed in the chart. Imagings Data: EXAM DESCRIPTION: Megan Single View10/19/2021 5:57 am CLINICAL HISTORY: Cough COMPARISON: October 18, 2021 FINDINGS: Mild bilateral interstitial lung opacities. Heart is moderately enlarged IMPRESSION: Mild bilateral interstitial lung opacities without significant change. This may represent mild interstitial pulmonary edema or atypical pneumonia/pneumonitis Conclusions/Impression: Hyponatremia -Continue furosemide HTN with CKD/ CHF -Continue Amlodipine -Continue Coreg Diastolic CHF, A/C -Continue furosemide -Continue spironolactone -Continue Coreg DM II with polyneuropathy -Continue Lantus -RISS -Continue gabapentin Mild malnutrition -Encourage nutrition Anemia in chronic illness Iron deficiency 4.7% -Consider IV iron Case reviewed with Dr. Abbott Thank you kindly for the consultation
[2021-10-20] MEDS: ROPINIROLE HCL 1 MG TAB PO SCH ×2 (14:35→21:11)
[2021-10-20 18:49] LABS: Urine Appearance CLEAR (Clear); Urine Bilirubin NEGATIVE (Negative); Urine Blood NEGATIVE (Negative); Urine Color YELLOW (Yellow); Urine Glucose 2+ (Negative); Urine Protein NEGATIVE (Negative)
[2021-10-20 19:16] LABS: Urine Microscopic Reflex ORDER UMIC
[2021-10-20 19:50] LABS: Urine Bacteria 20-50 /HPF (<20); Urine RBC <5 /HPF (NONE SEEN)
[2021-10-20 19:52] LABS: Urine Yeast PRESENT (NONE SEEN)
[2021-10-20] MEDS ORDERED: HOME MED 1 EA UNK (Insulin Glargine,Hum.Rec.Anlog [Basaglar Kwikpen U-100] 100 UNIT/ML Ins SQ SCH (21:00)
[2021-10-20] MEDS ORDERED: APIXABAN 5 MG TABLET PO SCH (21:00)
[2021-10-20] MEDS ORDERED: HOME MED 1 EA UNK (Sitagliptin Phosphate [Januvia] 50 MG Tablet) PO SCH (21:00)
[2021-10-20] MEDS: ATORVASTATIN 20 MG TAB PO SCH (21:11)
[2021-10-20] MEDS: ALOGLIPTIN BENZOATE 12.5 MG TABLET PO SCH (21:11)
[2021-10-21] MEDS: IPRATROPIUM BROM 0.5MG/2.5ML NEB PRN ×3 (01:05→13:55)
[2021-10-21] MEDS: ALBUTEROL 2.5 MG/3 ML NEB SOL NEB PRN ×3 (01:05→13:55)
[2021-10-21 05:59] LABS: Absolute Lymphocytes (CBC) 0.2 K/uL (0.7-4.9); Hematocrit 27.2 % (36.0-45.0); MPV 8.2 fL (7.6-11.3); RBC Red Blood Cell Count 3.86 M/uL (3.86-4.86)
[2021-10-21 06:17] LABS: Albumin 2.8 g/dL (3.4-5.0); Bilirubin Total 0.4 mg/dL (0.2-1.0); Magnesium 1.7 mg/dL (1.8-2.4); Phosphorus 2.8 mg/dL (2.5-4.9); Potassium 4.1 mmol/L (3.5-5.1); Protein, Total 6.4 g/dL (6.4-8.2); Uric Acid 5.1 mg/dL (2.6-6.0)
[2021-10-21] MEDS: INSULIN -REGULAR HUMAN 50 UNIT/0.5 ML ML SQ SCH ×4 (07:30→23:23)
[2021-10-21] MEDS: INSULIN GLARGINE 100 UNIT/ML SQ SCH ×2 (08:15→23:24)
[2021-10-21] MEDS: SPIRONOLACTONE 25 MG TABLET PO SCH (08:47)
[2021-10-21] MEDS: AZITHROMYCIN 250 MG TAB PO SCH (08:47)
[2021-10-21] MEDS: carvediloL 25 MG TAB PO SCH ×2 (08:47→23:25)
[2021-10-21] MEDS: AMLODIPINE 5 MG TAB PO SCH (08:47)
[2021-10-21] MEDS: PANTOPRAZOLE 40MG TABLET PO SCH (08:48)
[2021-10-21] MEDS: ASCORBIC ACID 500 MG TABLET PO SCH (08:48)
[2021-10-21] MEDS: JUVEN PACKET PO SCH ×2 (08:48→21:00)
[2021-10-21] MEDS: ROPINIROLE HCL 1 MG TAB PO SCH ×3 (08:48→23:25)
[2021-10-21] MEDS: predniSONE 20 MG TAB PO SCH ×2 (08:48→23:25)
[2021-10-21] MEDS: FUROSEMIDE 40 MG TABLET PO SCH (08:48)
[2021-10-21] MEDS: GABAPENTIN 300 MG CAP PO SCH (08:48)
[2021-10-21] MEDS: DIGOXIN 0.125 MG TABLET PO SCH (08:48)
[2021-10-21] MEDS: HOME MED 1 EA UNK (Empagliflozin [Jardiance] 10 MG Tablet) PO SCH (08:49)
[2021-10-21] MEDS: APIXABAN 5 MG TABLET PO SCH ×2 (08:49→23:24)
[2021-10-21] MEDS ORDERED: FUROSEMIDE 40 MG TABLET PO SCH (09:00)
[2021-10-21] MEDS ORDERED: HOME MED 1 EA UNK (Omeprazole [Prilosec] 40 MG Capsule.Dr) PO SCH (09:00)
--- NOTE | 2021-10-21 09:08 | P.PN ---
Subjective Date of Service: 10/21/21 Chief Complaint: Dyspnea, hypoxia Subjective: No new changes, Improving Physical Examination - Vital Signs Temperature: 97.3 F Blood Pressure: 131/61 Pulse: 78 Respirations: 16 Pulse Ox (%): 100 - Physical Exam General: Alert, In no apparent distress, Oriented x3 Neck: Supple Respiratory: Diminished Cardiovascular: Normal pulses, Regular rate/rhythm Gastrointestinal: Soft and benign Assessment And Plan - Plan Dyspnea, hypoxia bronchitis versus early pneumonia Nausea, vomiting, diarrhea Acute on chronic CHFunknown EF Microcytic anemia Diabetes mellitus type 2insulin-dependent Atrial fibrillation on chronic anticoagulation Hypertension Hyperlipidemia Plan: Dyspnea, hypoxia bronchitis versus early pneumonia: Presently on azithromycin and Rocephin as antimicrobial therapy. We will continue supplemental oxygen. We will continue breathing treatment. Nausea, vomiting, diarrhea: Resolved. we will monitor. Acute on chronic CHFunknown EF: Lasix dose is to be continued. Microcytic anemia: Stool guaiac negative will obtain MANUELA labs. Diabetes mellitus type 2insulin-dependent: We will continue long-acting insulin and sliding scale insulin. Atrial fibrillation on chronic anticoagulation: We will continue Eliquis, other home medications and monitor on telemetry. Hypertension: We will monitor vital signs per unit protocol and continue home meds. Hyperlipidemia: We will continue home meds Sacral decubiti: We will continue wound care recs. Prophylaxis: Eliquis for DVT prophylaxis.
[2021-10-21] MEDS: guaiFENesin 100 MG/5 ML UCUP PO PRN ×3 (09:10→23:36)
--- NOTE | 2021-10-21 09:14 | P.PN ---
Subjective Date of Service: 10/21/21 Chief Complaint: Dyspnea, hypoxia Physical Examination - Vital Signs Temperature: 97.3 F Blood Pressure: 131/61 Pulse: 78 Respirations: 16 Pulse Ox (%): 100 - Physical Exam General: Alert, Oriented x3 HEENT: Atraumatic, Normocephalic Respiratory: Normal air movement Cardiovascular: Regular rate/rhythm, Normal S1 S2 Gastrointestinal: Soft and benign Musculoskeletal: No swelling Neurological: Normal speech Assessment And Plan - Plan Dyspnea, hypoxia bronchitis versus early pneumonia Nausea, vomiting, diarrhea Acute on chronic CHFunknown EF Microcytic anemia Diabetes mellitus type 2insulin-dependent Atrial fibrillation on chronic anticoagulation Hypertension Hyperlipidemia Plan: Dyspnea, hypoxia bronchitis versus early pneumonia: Presently on azithromycin and Rocephin as antimicrobial therapy. We will continue supplemental oxygen. We will continue breathing treatment. Robitussin to be continued. Nausea, vomiting, diarrhea: Resolved. we will monitor. Acute on chronic CHFunknown EF: Lasix dose is to be continued. Microcytic anemia: Stool guaiac negative will obtain MANUELA labs. Diabetes mellitus type 2insulin-dependent: We will continue long-acting insulin and sliding scale insulin. Atrial fibrillation on chronic anticoagulation: We will continue Eliquis, other home medications and monitor on telemetry. Hypertension: We will monitor vital signs per unit protocol and continue home meds. Hyperlipidemia: We will continue home meds Sacral decubiti: We will continue wound care recs. Prophylaxis: Eliquis for DVT prophylaxis.
[2021-10-21] MEDS: BENZONATATE 100 MG CAP PO PRN (17:33)
[2021-10-21] MEDS: ALOGLIPTIN BENZOATE 12.5 MG TABLET PO SCH (23:24)
[2021-10-21] MEDS: ATORVASTATIN 20 MG TAB PO SCH (23:25)
[2021-10-22] MEDS: ONDANSETRON 4 MG/2 ML VIAL IV PRN (05:44)
[2021-10-22 05:48] LABS: Potassium 4.2 mmol/L (3.5-5.1)
--- NOTE | 2021-10-22 06:11 | P.PN ---
Date of Service: 10/22/21 Vital Signs Temp Pulse Resp BP Pulse Ox 97.6 F 68 20 101/50 L 93 10/22/21 04:00 10/22/21 04:00 10/22/21 04:00 10/22/21 04:00 10/22/21 04:00 Medications Acetaminophen (Acetaminophen 500 Mg Tab) 500 mg PO Q4HP PRN PRN Reason: Pain scale 2-4 (Mild) Last Admin: 10/19/21 05:08 Dose: 500 mg Documented by: Albuterol Sulfate (Albuterol 2.5 Mg/3 Ml Neb Leslie) 2.5 mg NEB Q6HP PRN PRN Reason: SHORTNESS OF BREATH Last Admin: 10/21/21 13:55 Dose: 2.5 mg Documented by: Amlodipine Besylate (Amlodipine 5 Mg Tab) 5 mg PO DAILY [facility] Last Admin: 10/21/21 08:47 Dose: 5 mg Documented by: Apixaban (Apixaban 5 Mg Tablet) 5 mg PO BID [facility] Last Admin: 10/21/21 23:24 Dose: 5 mg Documented by: Ascorbic Acid (Ascorbic Acid 500 Mg Tablet) 1,000 mg PO DAILY [facility] Last Admin: 10/21/21 08:48 Dose: 1,000 mg Documented by: Atorvastatin Calcium (Atorvastatin 20 Mg Tab) 20 mg PO BEDTIME [facility] Last Admin: 10/21/21 23:25 Dose: 20 mg Documented by: Azithromycin (Azithromycin 250 Mg Tab) 500 mg PO DAILY [facility] Last Admin: 10/21/21 08:47 Dose: 500 mg Documented by: Benzonatate (Benzonatate 100 Mg Cap) 100 mg PO TID PRN PRN Reason: COUGH Last Admin: 10/21/21 17:33 Dose: 100 mg Documented by: Carvedilol (Carvedilol 25 Mg Tab) 25 mg PO BID [facility] Last Admin: 10/21/21 23:25 Dose: 25 mg Documented by: Digoxin (Digoxin 0.125 Mg Tablet) 0.125 mg PO MoWeFr@0900 [facility] Last Admin: 10/21/21 08:48 Dose: 0.125 mg Documented by: Furosemide (Furosemide 40 Mg Tablet) 40 mg PO DAILY [facility] Last Admin: 10/21/21 08:48 Dose: 40 mg Documented by: Gabapentin (Gabapentin 300 Mg Cap) 300 mg PO DAILY [facility] Last Admin: 10/21/21 08:48 Dose: 300 mg Documented by: Guaifenesin (Guaifenesin 100 Mg/5 Ml Ucup) 200 mg PO QIDP PRN PRN Reason: COUGH Last Admin: 10/21/21 23:36 Dose: 200 mg Documented by: Home Med (Empagliflozin [Jardiance]) 10 mg PO DAILY [facility] Last Admin: 10/21/21 08:49 Dose: Not Given Documented by: Insulin Glargine (Insulin Glargine 100 Unit/Ml) 20 unit SQ BID [facility] Last Admin: 10/21/21 23:24 Dose: 20 unit Documented by: Insulin Human Regular (Insulin -Regular Human 50 Unit/0.5 Ml Ml) 0 unit SQ [facility]; Protocol Last Admin: 10/21/21 23:23 Dose: 2 unit Documented by: Ipratropium Buxton (Ipratropium Brom 0.5mg/2.5ml) 0.5 mg NEB [id number] PRN PRN Reason: WHEEZING Last Admin: 10/21/21 13:55 Dose: 0.5 mg Documented by: L-Arginine/L-Glutamine/HMB (Jules Packet) 1 pkt PO BID [facility] Last Admin: 10/21/21 21:00 Dose: Not Given Documented by: Ondansetron HCl (Ondansetron 4 Mg/2 Ml Vial) 4 mg IV Q6HP PRN PRN Reason: NAUSEA / VOMITING Last Admin: 10/22/21 05:44 Dose: 4 mg Documented by: Pantoprazole Sodium (Pantoprazole 40mg Tablet) 40 mg PO DAILY [facility] Last Admin: 10/21/21 08:48 Dose: 40 mg Documented by: Prednisone (Prednisone 20 Mg Tab) 20 mg PO BID [facility] Last Admin: 10/21/21 23:25 Dose: 20 mg Documented by: Ropinirole HCl (Ropinirole Hcl 1 Mg Tab) 2 mg PO TID [facility] Last Admin: 10/21/21 23:25 Dose: 2 mg Documented by: Sodium Chloride (Flush Normal Saline 10 Ml) 10 ml IV BID [facility] Last Admin: 10/21/21 23:26 Dose: 10 ml Documented by: Spironolactone (Spironolactone 25 Mg Tablet) 25 mg PO DAILY [facility] Last Admin: 10/21/21 08:47 Dose: 25 mg Documented by: Microbiology Results 10/18/21 21:50 Blood - Blood Aerobic Blood Culture - Preliminary No growth in 24 hours. 10/18/21 21:50 Blood - Blood Anaerobic Blood Culture - Preliminary No growth in 24 hours. 10/18/21 22:10 Blood - Blood Aerobic Blood Culture - Preliminary No growth in 24 hours. 10/18/21 22:10 Blood - Blood Anaerobic Blood Culture - Preliminary No growth in 24 hours. Assessment/ Plan: Nephrology Dyspnea improving No chest pain Fatigue and weakness No acute events overnight Vitals, medications, blood work and imaging reviewed in the chart. General: Oriented x3, Cooperative HEENT: Atraumatic Neck: Supple Respiratory: Expiratory wheezes Cardiovascular: No edema Gastrointestinal: Soft and benign, Non-distended Musculoskeletal: No clubbing, No contractures Integumentary: No rashes, No cyanosis Neurological: Normal speech Blood work reviewed in the chart. Imagings Data: EXAM DESCRIPTION: Megan Single View10/19/2021 5:57 am CLINICAL HISTORY: Cough COMPARISON: October 18, 2021 FINDINGS: Mild bilateral interstitial lung opacities. Heart is moderately enlarged IMPRESSION: Mild bilateral interstitial lung opacities without significant change. This may represent mild interstitial pulmonary edema or atypical pneumonia/pneumonitis Conclusions/Impression: Hyponatremia -Continue furosemide HTN with CKD/ CHF -Continue Amlodipine -Continue Coreg Diastolic CHF, A/C -Continue furosemide -Continue spironolactone -Continue Coreg DM II with polyneuropathy -Continue Lantus -RISS -Continue gabapentin Mild malnutrition -Encourage nutrition Anemia in chronic illness Iron deficiency 4.7% -Consider IV iron
[2021-10-22] MEDS: INSULIN -REGULAR HUMAN 50 UNIT/0.5 ML ML SQ SCH ×4 (07:29→21:20)
--- NOTE | 2021-10-22 07:38 | P.PN ---
Subjective Date of Service: 10/22/21 Chief Complaint: Dyspnea, hypoxia Subjective: No new changes, Improving Physical Examination - Vital Signs Temperature: 97.6 F Blood Pressure: 101/50 Pulse: 68 Respirations: 20 Pulse Ox (%): 93 - Physical Exam General: Alert, Oriented x3 HEENT: Atraumatic, Normocephalic Respiratory: Normal air movement Cardiovascular: Regular rate/rhythm, Normal S1 S2 Gastrointestinal: Soft and benign Musculoskeletal: No swelling Neurological: Normal speech Assessment And Plan - Plan Dyspnea, hypoxia bronchitis versus early pneumonia Nausea, vomiting, diarrhea Acute on chronic CHFunknown EF Microcytic anemia Diabetes mellitus type 2insulin-dependent Atrial fibrillation on chronic anticoagulation Hypertension Hyperlipidemia Plan: Dyspnea, hypoxia bronchitis versus early pneumonia: Presently on Rocephin as antimicrobial therapy. Completed azithromycin. We will continue supplemental oxygen and wean off as tolerated. We will continue breathing treatment. Robitussin to be continued. Nausea, vomiting, diarrhea: Resolved. we will monitor. Acute on chronic CHFunknown EF: Lasix dose is to be continued. Microcytic anemia: Stool guaiac negative will obtain MANUELA labs. Diabetes mellitus type 2insulin-dependent: We will continue long-acting insulin and sliding scale insulin. Atrial fibrillation on chronic anticoagulation: We will continue Eliquis, other home medications and monitor on telemetry. Hypertension: We will monitor vital signs per unit protocol and continue home meds. Hyperlipidemia: We will continue home meds Sacral decubiti: We will continue wound care recs. Prophylaxis: Eliquis for DVT prophylaxis.
[2021-10-22] MEDS: ALBUTEROL 2.5 MG/3 ML NEB SOL NEB PRN (07:54)
[2021-10-22] MEDS: JUVEN PACKET PO SCH ×2 (09:00→21:00)
[2021-10-22] MEDS: HOME MED 1 EA UNK (Empagliflozin [Jardiance] 10 MG Tablet) PO SCH (09:00)
[2021-10-22] MEDS: INSULIN GLARGINE 100 UNIT/ML SQ SCH ×2 (09:14→21:21)
[2021-10-22] MEDS: GABAPENTIN 300 MG CAP PO SCH (09:15)
[2021-10-22] MEDS: SPIRONOLACTONE 25 MG TABLET PO SCH (09:15)
[2021-10-22] MEDS: APIXABAN 5 MG TABLET PO SCH ×2 (09:15→21:18)
[2021-10-22] MEDS: AZITHROMYCIN 250 MG TAB PO SCH (09:15)
[2021-10-22] MEDS: FUROSEMIDE 40 MG TABLET PO SCH (09:16)
[2021-10-22] MEDS: ASCORBIC ACID 500 MG TABLET PO SCH (09:16)
[2021-10-22] MEDS: AMLODIPINE 5 MG TAB PO SCH (09:16)
[2021-10-22] MEDS: predniSONE 20 MG TAB PO SCH ×2 (09:16→21:18)
[2021-10-22] MEDS: carvediloL 25 MG TAB PO SCH ×2 (09:16→21:19)
[2021-10-22] MEDS: PANTOPRAZOLE 40MG TABLET PO SCH (09:20)
[2021-10-22] MEDS: ROPINIROLE HCL 1 MG TAB PO SCH ×3 (09:20→21:19)
--- NOTE | 2021-10-22 10:23 | P.PN ---
Subjective Date of Service: 10/22/21 Chief Complaint: Dyspnea, hypoxia No change patient still complains of significant amount of wheezing and coughing has productive yellow sputum Review of Systems General: Weakness Respiratory: Shortness of Breath Physical Examination - Vital Signs Temperature: 96.7 F Blood Pressure: 133/68 Pulse: 72 Respirations: 20 Pulse Ox (%): 97 - Physical Exam General: Alert, Oriented x3, Mild distress Respiratory: Expiratory wheezes Cardiovascular: No edema, Normal S1 S2 Assessment And Plan - Current Problems (Diagnosis) (1) CHF (congestive heart failure) Current Visit: No Status: Acute Plan: No improvement in wheezing despite negative fluid balance have underlying viral bronchiolitis also added some levofloxacin so far no significant response to bronchodilators I have ordered sputum cultures add Daliresp mild microcytic anemia Qualifiers: Heart failure type: systolic (2) Iron deficiency anemia Current Visit: Yes Status: Acute Plan: Patient has low ferritin and transferrin saturation possibly GI blood loss replenish her iron stores labs reviewed patient is on Eliquis Qualifiers: Iron deficiency anemia type: unspecified iron deficiency Qualified Code(s): D50.9 - Iron deficiency anemia, unspecified
[2021-10-22] MEDS: ARFORMOTEROL TARTRATE 15 MCG/2 ML VIAL.NEB NEB SCH ×2 (10:30→19:40)
[2021-10-22] MEDS ORDERED: levoFLOXacin 500 MG TAB PO SCH (11:00)
[2021-10-22] MEDS: ROFLUMILAST 500 MCG TABLET PO SCH (11:22)
[2021-10-22] MEDS: DOXYCYCLINE 100 MG CAP PO SCH ×2 (11:22→21:17)
[2021-10-22] MEDS: SOD FERRIC GLUC COMPLX/SUCROSE 250 MG in NA CHLORIDE 0.9% 250 ML IV SCH (11:22)
--- NOTE | 2021-10-22 12:08 | RAD REPORT ---
EXAM DESCRIPTION: RAD - Chest Single View - 10/22/2021 11:59 am CLINICAL HISTORY: Dyspnea bronchitis COMPARISON: Chest Single View dated 10/19/2021; Chest Single View dated 10/18/2021; Chest Single View dated 09/15/2021; Chest Pa And Lat (2 Views) dated 10/22/2018 FINDINGS: Lines: None. Lungs: Modest improvement in aeration of the lungs. There is still some prominence of the pulmonary i nterstitium bilaterally. Pleural: No significant pleural effusions or pneumothorax. Cardiac: Cardiomegaly. Bones: No acute fractures. Soft tissue anchors in the right humeral head. Other: IMPRESSION: Slightly improved aeration of the lungs compared with 10/19/2021.
[2021-10-22] MEDS: guaiFENesin 100 MG/5 ML UCUP PO PRN (17:49)
[2021-10-22] MEDS: ATORVASTATIN 20 MG TAB PO SCH (21:17)
[2021-10-22] MEDS: ALOGLIPTIN BENZOATE 12.5 MG TABLET PO SCH (21:18)
[2021-10-22] MEDS: BENZONATATE 100 MG CAP PO PRN (21:25)
--- NOTE | 2021-10-22 21:31 | PN ---
Date of Progress Note: 10/22/2021 Subjective: The patient is seen at [facility], room #232. The patient is alert, able t o communicate, and answer questions. She is elderly, frail with oxygen on board. Getting neb treatm ents and also has wheezing and has had bronchitis and difficulty breathing. The patient states that the breathing is improved overall, the cough is improved overall, but still ongoing followed by gillian mccord and inhalers and neb treatments have been addressed. The patient denies any headache, nausea, o r vomiting. Otherwise, overall looks clinically stable. Objective: Vital Signs: Reasonably stable, but blood pressures are now on the lower side with last blood pressure is 101/50, today at 104/60, pulse is about 60 to 80 and regular, and respirations arou nd 14 to 16. She is afebrile, O2 sats are 97%, but she is requiring 2 L nasal cannula. On occasion when she coughs, the O2 sats drop. Lungs: With wheezing bilaterally, improves with cough. Abdomen: Soft. Extremities: Reveal no edema. Laboratory Data: Reviewed. Labs show sodium 132, potassium 4.2, chloride 91, bicarb 38, BUN 27, and creatinine 0.75. WBC count 7.7, hemoglobin 8.5, hematocrit 27.2, and platelet count of 275. Medications: Reviewed. Assessment And Plan: 1.Hyponatremia, stable on Lasix. 2.Hypertension. The patient's blood pressure has been running on the lower side. Discontinue amlod ipine. Continue Coreg and furosemide. Monitor. 3.Congestive heart failure, stable on furosemide, spironolactone, and Coreg. If blood pressure drop s further, may have to cut back on spironolactone. 4.Diabetes, on Lantus and on insulin. 5.Anemia, reasonably stable. Continue to monitor. 6.Dyspnea, stabilizing. The patient getting neb treatments and also being followed by Pulmonary daisha mendes with Dr. Martinez. /MODL Voice ID: [id number] Report ID: [id number]
[2021-10-23] MEDS: IPRATROPIUM BROM 0.5MG/2.5ML NEB PRN ×3 (00:24→13:57)
[2021-10-23] MEDS: INSULIN -REGULAR HUMAN 50 UNIT/0.5 ML ML SQ SCH ×4 (07:30→20:56)
--- NOTE | 2021-10-23 07:51 | P.PN ---
Subjective Date of Service: 10/23/21 Chief Complaint: Dyspnea, hypoxia Subjective: No new changes, Improving Physical Examination - Vital Signs Temperature: 97.2 F Blood Pressure: 115/67 Pulse: 75 Respirations: 20 Pulse Ox (%): 100 - Physical Exam General: Alert, Oriented x3 HEENT: Atraumatic, Normocephalic Respiratory: Normal air movement Cardiovascular: Regular rate/rhythm, Normal S1 S2 Gastrointestinal: Soft and benign Musculoskeletal: No swelling Neurological: Normal speech Assessment And Plan - Plan Dyspnea, hypoxia bronchitis versus early pneumonia Nausea, vomiting, diarrhea Acute on chronic CHFunknown EF Microcytic anemia Diabetes mellitus type 2insulin-dependent Atrial fibrillation on chronic anticoagulation Hypertension Hyperlipidemia Plan: Dyspnea, hypoxia bronchitis versus early pneumonia: Presently on Rocephin as antimicrobial therapy. Completed azithromycin. We will continue supplemental oxygen and wean off as tolerated. We will continue breathing treatment. Robitussin to be continued. Nausea, vomiting, diarrhea: Resolved. we will monitor. Acute on chronic CHFunknown EF: Lasix dose is to be continued. Microcytic anemia: Stool guaiac negative will obtain MANUELA labs. Diabetes mellitus type 2insulin-dependent: We will continue long-acting insulin and sliding scale insulin. Atrial fibrillation on chronic anticoagulation: We will continue Eliquis, other home medications and monitor on telemetry. Hypertension: We will monitor vital signs per unit protocol and continue home meds. Hyperlipidemia: We will continue home meds Sacral decubiti: We will continue wound care recs. Prophylaxis: Eliquis for DVT prophylaxis.
[2021-10-23] MEDS: ALBUTEROL 2.5 MG/3 ML NEB SOL NEB PRN ×2 (08:02→13:57)
[2021-10-23] MEDS: ARFORMOTEROL TARTRATE 15 MCG/2 ML VIAL.NEB NEB SCH ×2 (08:02→20:30)
--- NOTE | 2021-10-23 08:41 | RAD REPORT ---
EXAM DESCRIPTION: Megan Single View10/23/2021 6:57 am CLINICAL HISTORY: Shortness of breath COMPARISON: October 22, 2021 FINDINGS: Bilateral pulmonary opacities have mostly if not completely resolved. The heart remains enlarged
[2021-10-23] MEDS ORDERED: levoFLOXacin 500 MG TAB PO SCH (09:00)
[2021-10-23] MEDS: HOME MED 1 EA UNK (Empagliflozin [Jardiance] 10 MG Tablet) PO SCH (09:00)
[2021-10-23] MEDS: JUVEN PACKET PO SCH ×2 (09:00→20:55)
[2021-10-23] MEDS: ROPINIROLE HCL 1 MG TAB PO SCH ×3 (09:18→20:53)
[2021-10-23] MEDS: GABAPENTIN 300 MG CAP PO SCH (09:18)
[2021-10-23] MEDS: SPIRONOLACTONE 25 MG TABLET PO SCH (09:18)
[2021-10-23] MEDS: predniSONE 20 MG TAB PO SCH ×2 (09:18→20:53)
[2021-10-23] MEDS: APIXABAN 5 MG TABLET PO SCH ×2 (09:18→20:52)
[2021-10-23] MEDS: ROFLUMILAST 500 MCG TABLET PO SCH (09:18)
[2021-10-23] MEDS: PANTOPRAZOLE 40MG TABLET PO SCH (09:19)
[2021-10-23] MEDS: AZITHROMYCIN 250 MG TAB PO SCH (09:19)
[2021-10-23] MEDS: DOXYCYCLINE 100 MG CAP PO SCH ×2 (09:19→20:54)
[2021-10-23] MEDS: carvediloL 25 MG TAB PO SCH ×2 (09:19→20:52)
[2021-10-23] MEDS: FUROSEMIDE 40 MG TABLET PO SCH (09:19)
[2021-10-23] MEDS: INSULIN GLARGINE 100 UNIT/ML SQ SCH ×2 (09:20→20:55)
[2021-10-23] MEDS: SOD FERRIC GLUC COMPLX/SUCROSE 250 MG in NA CHLORIDE 0.9% 250 ML IV SCH (09:38)
--- NOTE | 2021-10-23 19:01 | PN ---
Date of Progress Note: 10/23/2021 Subjective: The patient is more alert today. She is feeling better. She was eating some lunch when I saw her earlier. She denies any difficulty with breathing today. Her cough is somewhat improved. Objective: Vital Signs: On evaluation, her vitals are improved with blood pressure now at 125/72, p ulse is about 70-80 and regular, respirations around 14-16. She is afebrile, O2 sats are 96%. She h ad her oxygen off when I saw her. She has been in atrial fibrillation on and off and currently on ev aluation, she is actually in atrial fibrillation with heart rate irregularly irregular, but the heart rate is well controlled at about the 70-80 range. Lungs: On evaluation are clear to auscultation. She has some wheezing that improves with cough. Abdomen: Soft. Extremities: Reveal trace edema. Laboratory Data: Reviewed. Labs from October 21 show WBC 7.7, hemoglobin 8.5, hematocrit 27.2, platel et count of 275. Chemistries from October 22 show sodium 132, potassium 4.2, chloride 91, bicarb 38, B UN 27, creatinine 0.75, glucose 172, calcium 8.7. Assessment And Plan: Frail, elderly female with history of hypertension, hyponatremia, currently loo ks comfortable. Sodium has been relatively stable. The patient's breathing is improved. Denies any headache, nausea, vomiting. The patient is feeling a little bit stronger today. 1.Hyponatremia, stable on Lasix. Last sodium was at 132. 2.Hypertension. Blood pressure was running on the lower side. Amlodipine has been discontinued. T he patient is on Coreg, furosemide, and has improved significantly with more energy and more alert to day, and blood pressure is running in 120 range. 3.Congestive heart failure. Seems to be had a good volume status. Currently on furosemide and Lasi x and Coreg. Follows with Cardiology as well. 4.Diabetes, on insulin. Safe use addressed. 5.The patient also has history of anemia, reasonably stable at this point. Last hemoglobin was about 8.5 range. Continue to monitor. 6.Dyspnea, stabilizing. Pulmonary Service is following as well. /ROBERTO Voice ID: [id number] Report ID: [id number]
[2021-10-23] MEDS: ATORVASTATIN 20 MG TAB PO SCH (20:53)
[2021-10-23] MEDS: ALOGLIPTIN BENZOATE 12.5 MG TABLET PO SCH (20:54)
[2021-10-24] MEDS: guaiFENesin 100 MG/5 ML UCUP PO PRN (06:07)
[2021-10-24] MEDS: INSULIN -REGULAR HUMAN 50 UNIT/0.5 ML ML SQ SCH ×4 (07:30→20:19)
[2021-10-24] MEDS: ARFORMOTEROL TARTRATE 15 MCG/2 ML VIAL.NEB NEB SCH ×2 (08:00→19:50)
[2021-10-24] MEDS: JUVEN PACKET PO SCH ×2 (09:00→20:18)
[2021-10-24] MEDS: HOME MED 1 EA UNK (Empagliflozin [Jardiance] 10 MG Tablet) PO SCH (09:00)
[2021-10-24] MEDS: PANTOPRAZOLE 40MG TABLET PO SCH (09:45)
[2021-10-24] MEDS: APIXABAN 5 MG TABLET PO SCH ×2 (09:45→20:18)
[2021-10-24] MEDS: DIGOXIN 0.125 MG TABLET PO SCH (09:45)
[2021-10-24] MEDS: DOXYCYCLINE 100 MG CAP PO SCH ×2 (09:45→20:18)
[2021-10-24] MEDS: predniSONE 20 MG TAB PO SCH ×2 (09:45→20:17)
[2021-10-24] MEDS: SPIRONOLACTONE 25 MG TABLET PO SCH (09:45)
[2021-10-24] MEDS: ROFLUMILAST 500 MCG TABLET PO SCH (09:46)
[2021-10-24] MEDS: carvediloL 25 MG TAB PO SCH ×2 (09:46→20:18)
[2021-10-24] MEDS: FUROSEMIDE 40 MG TABLET PO SCH (09:46)
[2021-10-24] MEDS: AZITHROMYCIN 250 MG TAB PO SCH (09:46)
[2021-10-24] MEDS: GABAPENTIN 300 MG CAP PO SCH (09:46)
[2021-10-24] MEDS: ROPINIROLE HCL 1 MG TAB PO SCH ×3 (09:46→20:17)
[2021-10-24] MEDS: BENZONATATE 100 MG CAP PO PRN ×2 (09:46→20:19)
[2021-10-24] MEDS: INSULIN GLARGINE 100 UNIT/ML SQ SCH ×2 (09:47→20:20)
[2021-10-24] MEDS: SOD FERRIC GLUC COMPLX/SUCROSE 250 MG in NA CHLORIDE 0.9% 250 ML IV SCH (09:47)
[2021-10-24] MEDS: IPRATROPIUM BROM 0.5MG/2.5ML NEB PRN (19:50)
--- NOTE | 2021-10-24 20:09 | P.PN ---
Date of Service: 10/24/21 Vital Signs Temp Pulse Resp BP Pulse Ox 96.5 F L 83 20 136/83 91 10/24/21 16:00 10/24/21 16:00 10/24/21 16:00 10/24/21 16:00 10/24/21 16:00 Medications Acetaminophen (Acetaminophen 500 Mg Tab) 500 mg PO Q4HP PRN PRN Reason: Pain scale 2-4 (Mild) Last Admin: 10/19/21 05:08 Dose: 500 mg Documented by: Albuterol Sulfate (Albuterol 2.5 Mg/3 Ml Neb Leslie) 2.5 mg NEB Q6HP PRN PRN Reason: SHORTNESS OF BREATH Last Admin: 10/23/21 13:57 Dose: 2.5 mg Documented by: Apixaban (Apixaban 5 Mg Tablet) 5 mg PO BID [facility] Last Admin: 10/24/21 09:45 Dose: 5 mg Documented by: Arformoterol Tartrate (Arformoterol Tartrate 15 Mcg/2 Ml Vial.Neb) 15 mcg NEB BIDRESP [facility] Last Admin: 10/24/21 08:00 Dose: 15 mcg Documented by: Atorvastatin Calcium (Atorvastatin 20 Mg Tab) 20 mg PO BEDTIME [facility] Last Admin: 10/23/21 20:53 Dose: 20 mg Documented by: Azithromycin (Azithromycin 250 Mg Tab) 500 mg PO DAILY [facility] Last Admin: 10/24/21 09:46 Dose: 500 mg Documented by: Benzonatate (Benzonatate 100 Mg Cap) 100 mg PO TID PRN PRN Reason: COUGH Last Admin: 10/24/21 09:46 Dose: 100 mg Documented by: Carvedilol (Carvedilol 25 Mg Tab) 25 mg PO BID [facility] Last Admin: 10/24/21 09:46 Dose: 25 mg Documented by: Digoxin (Digoxin 0.125 Mg Tablet) 0.125 mg PO MoWeFr@0900 [facility] Last Admin: 10/24/21 09:45 Dose: 0.125 mg Documented by: Doxycycline Monohydrate (Doxycycline 100 Mg Cap) 100 mg PO BID [facility]; Protocol Last Admin: 10/24/21 09:45 Dose: 100 mg Documented by: Furosemide (Furosemide 40 Mg Tablet) 40 mg PO DAILY [facility] Last Admin: 10/24/21 09:46 Dose: 40 mg Documented by: Gabapentin (Gabapentin 300 Mg Cap) 300 mg PO DAILY [facility] Last Admin: 10/24/21 09:46 Dose: 300 mg Documented by: Guaifenesin (Guaifenesin 100 Mg/5 Ml Ucup) 200 mg PO QIDP PRN PRN Reason: COUGH Last Admin: 10/24/21 06:07 Dose: 200 mg Documented by: Home Med (Empagliflozin [Jardiance]) 10 mg PO DAILY [facility] Last Admin: 10/24/21 09:00 Dose: Not Given Documented by: Ferric Sodium Gluconate Complex 250 mg/ Sodium Chloride 270 mls @ 135 mls/hr IV DAILY [facility] Stop: 10/25/21 10:59 Last Admin: 10/24/21 09:47 Dose: 270 mls Documented by: Insulin Glargine (Insulin Glargine 100 Unit/Ml) 20 unit SQ BID [facility] Last Admin: 10/24/21 09:47 Dose: 20 unit Documented by: Insulin Human Regular (Insulin -Regular Human 50 Unit/0.5 Ml Ml) 0 unit SQ ACHS [facility]; Protocol Last Admin: 10/24/21 17:09 Dose: 8 unit Documented by: Ipratropium [place] (Ipratropium Brom 0.5mg/2.5ml) 0.5 mg NEB [id number] PRN PRN Reason: WHEEZING Last Admin: 10/23/21 13:57 Dose: 0.5 mg Documented by: L-Arginine/L-Glutamine/HMB (Jules Packet) 1 pkt PO BID [facility] Last Admin: 10/24/21 09:00 Dose: Not Given Documented by: Ondansetron HCl (Ondansetron 4 Mg/2 Ml Vial) 4 mg IV Q6HP PRN PRN Reason: NAUSEA / VOMITING Last Admin: 10/22/21 05:44 Dose: 4 mg Documented by: Pantoprazole Sodium (Pantoprazole 40mg Tablet) 40 mg PO DAILY [facility] Last Admin: 10/24/21 09:45 Dose: 40 mg Documented by: Prednisone (Prednisone 20 Mg Tab) 20 mg PO BID [facility] Last Admin: 10/24/21 09:45 Dose: 20 mg Documented by: Roflumilast (Roflumilast 500 Mcg Tablet) 500 mcg PO DAILY [facility] Last Admin: 10/24/21 09:46 Dose: 500 mcg Documented by: Ropinirole HCl (Ropinirole Hcl 1 Mg Tab) 2 mg PO TID [facility] Last Admin: 10/24/21 14:38 Dose: 2 mg Documented by: Sodium Chloride (Flush Normal Saline 10 Ml) 10 ml IV BID [facility] Last Admin: 10/24/21 09:47 Dose: 10 ml Documented by: Spironolactone (Spironolactone 25 Mg Tablet) 25 mg PO DAILY [facility] Last Admin: 10/24/21 09:45 Dose: 25 mg Documented by: Microbiology Results 10/18/21 21:50 Blood - Blood Aerobic Blood Culture - Final No growth in 5 days. 10/18/21 21:50 Blood - Blood Anaerobic Blood Culture - Final No growth in 5 days. 10/18/21 22:10 Blood - Blood Aerobic Blood Culture - Final No growth in 5 days. 10/18/21 22:10 Blood - Blood Anaerobic Blood Culture - Final No growth in 5 days. Assessment/ Plan: Nephrology Persistent dyspnea with cough No chest pain Fatigue and weakness No acute events overnight Vitals, medications, blood work and imaging reviewed in the chart. General: Oriented x3, Cooperative HEENT: Atraumatic Neck: Supple Respiratory: Expiratory wheezes Cardiovascular: Trace edema Gastrointestinal: Soft and benign, Non-distended Musculoskeletal: No clubbing, No contractures Integumentary: No rashes, No cyanosis Neurological: Normal speech Blood work reviewed in the chart. Imagings Data: EXAM DESCRIPTION: Megan Single View10/19/2021 5:57 am CLINICAL HISTORY: Cough COMPARISON: October 18, 2021 FINDINGS: Mild bilateral interstitial lung opacities. Heart is moderately enlarged IMPRESSION: Mild bilateral interstitial lung opacities without significant change. This may represent mild interstitial pulmonary edema or atypical pneumonia/pneumonitis Conclusions/Impression: Hyponatremia -Continue furosemide HTN with CKD/ CHF -Continue Coreg Diastolic CHF, A/C -Continue furosemide -Continue spironolactone -Continue Coreg DM II with polyneuropathy -Continue Lantus -RISS -Continue gabapentin Mild malnutrition -Encourage nutrition Anemia in chronic illness Iron deficiency 4.7% -IV iron as ordered
[2021-10-24] MEDS: ALOGLIPTIN BENZOATE 12.5 MG TABLET PO SCH (20:17)
[2021-10-24] MEDS: ATORVASTATIN 20 MG TAB PO SCH (20:17)
[2021-10-25 06:09] LABS: Absolute Lymphocytes (CBC) 0.5 K/uL (0.7-4.9); Hematocrit 32.4 % (36.0-45.0); Lymphocytes % 4.2 % (15.3-44.8); MPV 8.5 fL (7.6-11.3); RBC Red Blood Cell Count 4.57 M/uL (3.86-4.86)
[2021-10-25 06:24] LABS: Albumin 2.8 g/dL (3.4-5.0); Bilirubin Total 0.3 mg/dL (0.2-1.0); Magnesium 1.7 mg/dL (1.8-2.4); Potassium 4.1 mmol/L (3.5-5.1); Protein, Total 6.3 g/dL (6.4-8.2); Uric Acid 5.9 mg/dL (2.6-6.0)
[2021-10-25] MEDS: INSULIN -REGULAR HUMAN 50 UNIT/0.5 ML ML SQ SCH ×4 (07:30→21:27)
[2021-10-25] MEDS: IPRATROPIUM BROM 0.5MG/2.5ML NEB PRN ×2 (07:45→19:45)
[2021-10-25] MEDS: ARFORMOTEROL TARTRATE 15 MCG/2 ML VIAL.NEB NEB SCH ×2 (07:45→19:45)
[2021-10-25] MEDS: ALBUTEROL 2.5 MG/3 ML NEB SOL NEB PRN ×2 (07:45→19:45)
[2021-10-25] MEDS: AZITHROMYCIN 250 MG TAB PO SCH (08:30)
[2021-10-25] MEDS: GABAPENTIN 300 MG CAP PO SCH (08:30)
[2021-10-25] MEDS: predniSONE 20 MG TAB PO SCH (08:31)
[2021-10-25] MEDS: SPIRONOLACTONE 25 MG TABLET PO SCH (08:31)
[2021-10-25] MEDS: PANTOPRAZOLE 40MG TABLET PO SCH (08:31)
[2021-10-25] MEDS: FUROSEMIDE 40 MG TABLET PO SCH (08:31)
[2021-10-25] MEDS: DOXYCYCLINE 100 MG CAP PO SCH ×2 (08:31→21:26)
[2021-10-25] MEDS: APIXABAN 5 MG TABLET PO SCH ×2 (08:32→21:26)
[2021-10-25] MEDS: ROPINIROLE HCL 1 MG TAB PO SCH ×3 (08:32→21:26)
[2021-10-25] MEDS: carvediloL 25 MG TAB PO SCH ×2 (08:32→21:26)
[2021-10-25] MEDS: ROFLUMILAST 500 MCG TABLET PO SCH (08:32)
[2021-10-25] MEDS: INSULIN GLARGINE 100 UNIT/ML SQ SCH ×2 (08:33→21:27)
[2021-10-25] MEDS: JUVEN PACKET PO SCH ×2 (08:33→21:27)
[2021-10-25] MEDS: HOME MED 1 EA UNK (Empagliflozin [Jardiance] 10 MG Tablet) PO SCH (08:33)
[2021-10-25] MEDS: BENZONATATE 100 MG CAP PO PRN ×2 (08:39→21:35)
[2021-10-25] MEDS: SOD FERRIC GLUC COMPLX/SUCROSE 250 MG in NA CHLORIDE 0.9% 250 ML IV SCH (09:00)
[2021-10-25] MEDS ORDERED: VANCOMYCIN 1 GM in NA CHLORIDE 0.9% 250 ML IVPB ONE (11:31)
[2021-10-25] MEDS: ALOGLIPTIN BENZOATE 12.5 MG TABLET PO SCH (21:25)
[2021-10-25] MEDS: ATORVASTATIN 20 MG TAB PO SCH (21:26)
[2021-10-26] MEDS: guaiFENesin 100 MG/5 ML UCUP PO PRN (00:26)
[2021-10-26] MEDS: INSULIN -REGULAR HUMAN 50 UNIT/0.5 ML ML SQ SCH ×4 (07:30→21:43)
[2021-10-26] MEDS: HOME MED 1 EA UNK (Empagliflozin [Jardiance] 10 MG Tablet) PO SCH (08:07)
[2021-10-26] MEDS: INSULIN GLARGINE 100 UNIT/ML SQ SCH ×2 (08:07→21:44)
[2021-10-26] MEDS: ROPINIROLE HCL 1 MG TAB PO SCH ×3 (08:40→21:58)
[2021-10-26] MEDS: ARFORMOTEROL TARTRATE 15 MCG/2 ML VIAL.NEB NEB SCH ×2 (08:40→20:05)
[2021-10-26] MEDS: IPRATROPIUM BROM 0.5MG/2.5ML NEB PRN ×2 (08:40→20:05)
[2021-10-26] MEDS: AZITHROMYCIN 250 MG TAB PO SCH (08:40)
[2021-10-26] MEDS: ALBUTEROL 2.5 MG/3 ML NEB SOL NEB PRN ×2 (08:40→20:05)
[2021-10-26] MEDS: PANTOPRAZOLE 40MG TABLET PO SCH (08:41)
[2021-10-26] MEDS: APIXABAN 5 MG TABLET PO SCH ×2 (08:41→21:48)
[2021-10-26] MEDS: GABAPENTIN 300 MG CAP PO SCH (08:41)
[2021-10-26] MEDS: DOXYCYCLINE 100 MG CAP PO SCH ×2 (08:41→21:46)
[2021-10-26] MEDS: DIGOXIN 0.125 MG TABLET PO SCH (08:41)
[2021-10-26] MEDS: carvediloL 25 MG TAB PO SCH ×2 (08:42→21:47)
[2021-10-26] MEDS: FUROSEMIDE 40 MG TABLET PO SCH (08:42)
[2021-10-26] MEDS: SPIRONOLACTONE 25 MG TABLET PO SCH (08:42)
[2021-10-26] MEDS: ROFLUMILAST 500 MCG TABLET PO SCH (08:42)
[2021-10-26] MEDS: JUVEN PACKET PO SCH ×2 (08:43→21:00)
--- NOTE | 2021-10-26 09:46 | P.PN ---
Date of Service: 10/24/21 Subjective Subjective: No new changes, Improving; oxygen requirements have decreased. Physical Examination - Vital Signs Reviewed - Physical Exam General: Alert, Oriented x3 HEENT: Atraumatic, Normocephalic Respiratory: Normal air movement Cardiovascular: Regular rate/rhythm, Normal S1 S2 Gastrointestinal: Soft and benign Musculoskeletal: No swelling Neurological: Normal speech Assessment And Plan - Plan 1. MRSA pneumonia 2. Nausea, vomiting, diarrhea 3. 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 Microcytic anemia 5. Diabetes mellitus type 2insulin-dependent 6. Atrial fibrillation on chronic anticoagulation 7. Hypertension 8. 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 Diabetes mellitus type 2insulin-dependent: We will continue long-acting insulin and sliding scale insulin. Atrial fibrillation on chronic anticoagulation: We will continue Eliquis, other home medications and monitor on telemetry. Hypertension: We will monitor vital signs per unit protocol and continue home meds. Hyperlipidemia: We will continue home meds Sacral decubiti: We will continue wound care recs. Prophylaxis: Eliquis for DVT prophylaxis.
--- NOTE | 2021-10-26 09:47 | P.PN ---
Date of Service: 10/25/21 Subjective Subjective: Has some hypoglycemia and will adjust her insulin today Physical Examination - Vital Signs Reviewed - Physical Exam General: Alert, Oriented x3 HEENT: Atraumatic, Normocephalic Respiratory: Normal air movement Cardiovascular: Regular rate/rhythm, Normal S1 S2 Gastrointestinal: Soft and benign Musculoskeletal: No swelling Neurological: Normal speech Assessment And Plan - Plan 1. MRSA pneumonia 2. Nausea, vomiting, diarrhea 3. 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 Microcytic anemia 5. Diabetes mellitus type 2insulin-dependent 6. Atrial fibrillation on chronic anticoagulation 7. Hypertension 8. 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 Diabetes mellitus type 2insulin-dependent: We will continue long-acting insulin and sliding scale insulin. Atrial fibrillation on chronic anticoagulation: We will continue Eliquis, other home medications and monitor on telemetry. Hypertension: We will monitor vital signs per unit protocol and continue home meds. Hyperlipidemia: We will continue home meds Sacral decubiti: We will continue wound care recs. Deconditioning and dyspnea on exertion; will work with physical therapy to try to strengthen her respiratory status to where she can go home safely.
--- NOTE | 2021-10-26 09:47 | P.PN ---
Date of Service: 10/25/21 Subjective Subjective: Patient still tachypneic when laying in bed. She does develop some respiratory distress. Not able to move around without difficulty. Get physical therapy to start working with her. Work on some pulmonary rehab as well. Hopefully we can get her breathing improved to where she can go home where she lives with her daughter. If she is not able to go home then she needs to go to a senior living facility. Physical Examination - Vital Signs Reviewed - Physical Exam General: Alert, Oriented x3 HEENT: Atraumatic, Normocephalic Respiratory: Normal air movement Cardiovascular: Regular rate/rhythm, Normal S1 S2 Gastrointestinal: Soft and benign Musculoskeletal: No swelling Neurological: Normal speech Assessment And Plan - Plan 1. MRSA pneumonia 2. Nausea, vomiting, diarrhea 3. 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 Microcytic anemia 5. Diabetes mellitus type 2insulin-dependent 6. Atrial fibrillation on chronic anticoagulation 7. Hypertension 8. 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 Diabetes mellitus type 2insulin-dependent: We will continue long-acting insulin and sliding scale insulin. Atrial fibrillation on chronic anticoagulation: We will continue Eliquis, other home medications and monitor on telemetry. Hypertension: We will monitor vital signs per unit protocol and continue home meds. Hyperlipidemia: We will continue home meds Sacral decubiti: We will continue wound care recs. Deconditioning and dyspnea on exertion; will work with physical therapy to try to strengthen her respiratory status to where she can go home safely.
[2021-10-26] MEDS ORDERED: predniSONE 20 MG TAB PO ONE (09:48)
[2021-10-26] MEDS ORDERED: DIPHENHYDRAMINE 25 MG TAB/CAP PO ONE (13:09)
[2021-10-26] MEDS ORDERED: METHYLPREDNISOLONE 125 MG INJ IV ONE (13:09)
[2021-10-26] MEDS: ATORVASTATIN 20 MG TAB PO SCH (21:46)
[2021-10-26] MEDS: predniSONE 20 MG TAB PO SCH (21:49)
[2021-10-26] MEDS: ALOGLIPTIN BENZOATE 12.5 MG TABLET PO SCH (21:58)
[2021-10-26] MEDS: BENZONATATE 100 MG CAP PO PRN (22:01)
--- NOTE | 2021-10-26 22:22 | P.PN ---
Date of Service: 10/25/21 Vital Signs Temp Pulse Resp BP Pulse Ox 97.0 F 89 16 133/76 97 10/26/21 16:00 10/26/21 21:47 10/26/21 16:00 10/26/21 21:47 10/26/21 16:00 Medications Acetaminophen (Acetaminophen 500 Mg Tab) 500 mg PO Q4HP PRN PRN Reason: Pain scale 2-4 (Mild) Last Admin: 10/19/21 05:08 Dose: 500 mg Documented by: Albuterol Sulfate (Albuterol 2.5 Mg/3 Ml Neb Leslie) 2.5 mg NEB Q6HP PRN PRN Reason: SHORTNESS OF BREATH Last Admin: 10/26/21 20:05 Dose: 2.5 mg Documented by: Apixaban (Apixaban 5 Mg Tablet) 5 mg PO BID [facility] Last Admin: 10/26/21 21:48 Dose: 5 mg Documented by: Arformoterol Tartrate (Arformoterol Tartrate 15 Mcg/2 Ml Vial.Neb) 15 mcg NEB BIDRESP [facility] Last Admin: 10/26/21 20:05 Dose: 15 mcg Documented by: Atorvastatin Calcium (Atorvastatin 20 Mg Tab) 20 mg PO BEDTIME [facility] Last Admin: 10/26/21 21:46 Dose: 20 mg Documented by: Azithromycin (Azithromycin 250 Mg Tab) 500 mg PO DAILY [facility] Last Admin: 10/26/21 08:40 Dose: 500 mg Documented by: Benzonatate (Benzonatate 100 Mg Cap) 100 mg PO TID PRN PRN Reason: COUGH Last Admin: 10/26/21 22:01 Dose: 100 mg Documented by: Carvedilol (Carvedilol 25 Mg Tab) 25 mg PO BID [facility] Last Admin: 10/26/21 21:47 Dose: 25 mg Documented by: Digoxin (Digoxin 0.125 Mg Tablet) 0.125 mg PO MoWeFr@0900 [facility] Last Admin: 10/26/21 08:41 Dose: 0.125 mg Documented by: Doxycycline Monohydrate (Doxycycline 100 Mg Cap) 100 mg PO BID [facility]; Protocol Last Admin: 10/26/21 21:46 Dose: 100 mg Documented by: Furosemide (Furosemide 40 Mg Tablet) 40 mg PO DAILY [facility] Last Admin: 10/26/21 08:42 Dose: 40 mg Documented by: Gabapentin (Gabapentin 300 Mg Cap) 300 mg PO DAILY [facility] Last Admin: 10/26/21 08:41 Dose: 300 mg Documented by: Guaifenesin (Guaifenesin 100 Mg/5 Ml Ucup) 200 mg PO QIDP PRN PRN Reason: COUGH Last Admin: 10/26/21 00:26 Dose: 200 mg Documented by: Home Med (Empagliflozin [Jardiance]) 10 mg PO DAILY [facility] Last Admin: 10/26/21 08:07 Dose: Not Given Documented by: Insulin Glargine (Insulin Glargine 100 Unit/Ml) 10 unit SQ BID [facility] Last Admin: 10/26/21 21:44 Dose: 10 unit Documented by: Insulin Human Regular (Insulin -Regular Human 50 Unit/0.5 Ml Ml) [address] [facility]; Protocol Last Admin: 10/26/21 21:43 Dose: 14 unit Documented by: Ipratropium [place] (Ipratropium Brom 0.5mg/2.5ml) 0.5 mg NEB [id number] PRN PRN Reason: WHEEZING Last Admin: 10/26/21 20:05 Dose: 0.5 mg Documented by: L-Arginine/L-Glutamine/HMB (Jules Packet) 1 pkt PO BID [facility] Last Admin: 10/26/21 08:43 Dose: 1 pkt Documented by: Ondansetron HCl (Ondansetron 4 Mg/2 Ml Vial) 4 mg IV Q6HP PRN PRN Reason: NAUSEA / VOMITING Last Admin: 10/22/21 05:44 Dose: 4 mg Documented by: Pantoprazole Sodium (Pantoprazole 40mg Tablet) 40 mg PO DAILY [facility] Last Admin: 10/26/21 08:41 Dose: 40 mg Documented by: Prednisone (Prednisone 20 Mg Tab) 20 mg PO BID [facility] Last Admin: 10/26/21 21:49 Dose: 20 mg Documented by: Roflumilast (Roflumilast 500 Mcg Tablet) 500 mcg PO DAILY [facility] Last Admin: 10/26/21 08:42 Dose: 500 mcg Documented by: Ropinirole HCl (Ropinirole Hcl 1 Mg Tab) 2 mg PO TID [facility] Last Admin: 10/26/21 21:58 Dose: 2 mg Documented by: Sodium Chloride (Flush Normal Saline 10 Ml) 10 ml IV BID [facility] Last Admin: 10/26/21 22:02 Dose: 10 ml Documented by: Spironolactone (Spironolactone 25 Mg Tablet) 25 mg PO DAILY [facility] Last Admin: 10/26/21 08:42 Dose: 25 mg Documented by: Microbiology Results 10/18/21 21:50 Blood - Blood Aerobic Blood Culture - Final No growth in 5 days. 10/18/21 21:50 Blood - Blood Anaerobic Blood Culture - Final No growth in 5 days. 10/18/21 22:10 Blood - Blood Aerobic Blood Culture - Final No growth in 5 days. 10/18/21 22:10 Blood - Blood Anaerobic Blood Culture - Final No growth in 5 days. Assessment/ Plan: Nephrology Persistent dyspnea with cough No chest pain Fatigue and weakness No acute events overnight Vitals, medications, blood work and imaging reviewed in the chart. General: Oriented x3, Cooperative HEENT: Atraumatic Neck: Supple Respiratory: Expiratory wheezes Cardiovascular: Trace edema Gastrointestinal: Soft and benign, Non-distended Musculoskeletal: No clubbing, No contractures Integumentary: No rashes, No cyanosis Neurological: Normal speech Blood work reviewed in the chart. Imagings Data: EXAM DESCRIPTION: Ronit Single View10/19/2021 5:57 am CLINICAL HISTORY: Cough COMPARISON: October 18, 2021 FINDINGS: Mild bilateral interstitial lung opacities. Heart is moderately enlarged IMPRESSION: Mild bilateral interstitial lung opacities without significant change. This may represent mild interstitial pulmonary edema or atypical pneumonia/pneumonitis Conclusions/Impression: Hyponatremia -Continue furosemide HTN with CKD/ CHF -Continue Coreg Diastolic CHF, A/C -Continue furosemide -Continue spironolactone -Continue Coreg DM II with polyneuropathy -Continue Lantus -RISS -Continue gabapentin Mild malnutrition -Encourage nutrition Anemia in chronic illness Iron deficiency 4.7% -IV iron as ordered -Monitor H&H
--- NOTE | 2021-10-26 22:24 | P.PN ---
Date of Service: 10/26/21 Vital Signs Temp Pulse Resp BP Pulse Ox 97.0 F 89 16 133/76 97 10/26/21 16:00 10/26/21 21:47 10/26/21 16:00 10/26/21 21:47 10/26/21 16:00 Medications Acetaminophen (Acetaminophen 500 Mg Tab) 500 mg PO Q4HP PRN PRN Reason: Pain scale 2-4 (Mild) Last Admin: 10/19/21 05:08 Dose: 500 mg Documented by: Albuterol Sulfate (Albuterol 2.5 Mg/3 Ml Neb Leslie) 2.5 mg NEB Q6HP PRN PRN Reason: SHORTNESS OF BREATH Last Admin: 10/26/21 20:05 Dose: 2.5 mg Documented by: Apixaban (Apixaban 5 Mg Tablet) 5 mg PO BID [facility] Last Admin: 10/26/21 21:48 Dose: 5 mg Documented by: Arformoterol Tartrate (Arformoterol Tartrate 15 Mcg/2 Ml Vial.Neb) 15 mcg NEB BIDRESP [facility] Last Admin: 10/26/21 20:05 Dose: 15 mcg Documented by: Atorvastatin Calcium (Atorvastatin 20 Mg Tab) 20 mg PO BEDTIME [facility] Last Admin: 10/26/21 21:46 Dose: 20 mg Documented by: Azithromycin (Azithromycin 250 Mg Tab) 500 mg PO DAILY [facility] Last Admin: 10/26/21 08:40 Dose: 500 mg Documented by: Benzonatate (Benzonatate 100 Mg Cap) 100 mg PO TID PRN PRN Reason: COUGH Last Admin: 10/26/21 22:01 Dose: 100 mg Documented by: Carvedilol (Carvedilol 25 Mg Tab) 25 mg PO BID [facility] Last Admin: 10/26/21 21:47 Dose: 25 mg Documented by: Digoxin (Digoxin 0.125 Mg Tablet) 0.125 mg PO MoWeFr@0900 [facility] Last Admin: 10/26/21 08:41 Dose: 0.125 mg Documented by: Doxycycline Monohydrate (Doxycycline 100 Mg Cap) 100 mg PO BID [facility]; Protocol Last Admin: 10/26/21 21:46 Dose: 100 mg Documented by: Furosemide (Furosemide 40 Mg Tablet) 40 mg PO DAILY [facility] Last Admin: 10/26/21 08:42 Dose: 40 mg Documented by: Gabapentin (Gabapentin 300 Mg Cap) 300 mg PO DAILY [facility] Last Admin: 10/26/21 08:41 Dose: 300 mg Documented by: Guaifenesin (Guaifenesin 100 Mg/5 Ml Ucup) 200 mg PO QIDP PRN PRN Reason: COUGH Last Admin: 10/26/21 00:26 Dose: 200 mg Documented by: Home Med (Empagliflozin [Jardiance]) 10 mg PO DAILY [facility] Last Admin: 10/26/21 08:07 Dose: Not Given Documented by: Insulin Glargine (Insulin Glargine 100 Unit/Ml) 10 unit SQ BID [facility] Last Admin: 10/26/21 21:44 Dose: 10 unit Documented by: Insulin Human Regular (Insulin -Regular Human 50 Unit/0.5 Ml Ml) 0 unit SQ [facility]; Protocol Last Admin: 10/26/21 21:43 Dose: 14 unit Documented by: Ipratropium [place] (Ipratropium Brom 0.5mg/2.5ml) 0.5 mg NEB [id number] PRN PRN Reason: WHEEZING Last Admin: 10/26/21 20:05 Dose: 0.5 mg Documented by: L-Arginine/L-Glutamine/HMB (Jules Packet) 1 pkt PO BID [facility] Last Admin: 10/26/21 08:43 Dose: 1 pkt Documented by: Ondansetron HCl (Ondansetron 4 Mg/2 Ml Vial) 4 mg IV Q6HP PRN PRN Reason: NAUSEA / VOMITING Last Admin: 10/22/21 05:44 Dose: 4 mg Documented by: Pantoprazole Sodium (Pantoprazole 40mg Tablet) 40 mg PO DAILY [facility] Last Admin: 10/26/21 08:41 Dose: 40 mg Documented by: Prednisone (Prednisone 20 Mg Tab) 20 mg PO BID [facility] Last Admin: 10/26/21 21:49 Dose: 20 mg Documented by: Roflumilast (Roflumilast 500 Mcg Tablet) 500 mcg PO DAILY [facility] Last Admin: 10/26/21 08:42 Dose: 500 mcg Documented by: Ropinirole HCl (Ropinirole Hcl 1 Mg Tab) 2 mg PO TID [facility] Last Admin: 10/26/21 21:58 Dose: 2 mg Documented by: Sodium Chloride (Flush Normal Saline 10 Ml) 10 ml IV BID [facility] Last Admin: 10/26/21 22:02 Dose: 10 ml Documented by: Spironolactone (Spironolactone 25 Mg Tablet) 25 mg PO DAILY [facility] Last Admin: 10/26/21 08:42 Dose: 25 mg Documented by: Microbiology Results 10/18/21 21:50 Blood - Blood Aerobic Blood Culture - Final No growth in 5 days. 10/18/21 21:50 Blood - Blood Anaerobic Blood Culture - Final No growth in 5 days. 10/18/21 22:10 Blood - Blood Aerobic Blood Culture - Final No growth in 5 days. 10/18/21 22:10 Blood - Blood Anaerobic Blood Culture - Final No growth in 5 days. Assessment/ Plan: Nephrology Leg pain No chest pain Fatigue and weakness No acute events overnight Vitals, medications, blood work and imaging reviewed in the chart. General: Oriented x3, Cooperative HEENT: Atraumatic Neck: Supple Respiratory: Expiratory wheezes Cardiovascular: Trace edema Gastrointestinal: Soft and benign, Non-distended Musculoskeletal: No clubbing, No contractures Integumentary: No rashes, No cyanosis Neurological: Normal speech Blood work reviewed in the chart. Imagings Data: EXAM DESCRIPTION: Ronit Single View10/19/2021 5:57 am CLINICAL HISTORY: Cough COMPARISON: October 18, 2021 FINDINGS: Mild bilateral interstitial lung opacities. Heart is moderately enlar ged IMPRESSION: Mild bilateral interstitial lung opacities without significant change. This may represent mild interstitial pulmonary edema or atypical pneumonia/pneumonitis Conclusions/Impression: Hyponatremia -Continue furosemide HTN with CKD/ CHF -Continue Coreg Diastolic CHF, A/C -Continue furosemide -Continue spironolactone -Continue Coreg DM II with polyneuropathy -Continue Lantus -RISS -Continue gabapentin Mild malnutrition -Encourage nutrition Anemia in chronic illness Iron deficiency 4.7% -IV iron as ordered -Monitor H&H
[2021-10-27] MEDS: guaiFENesin 100 MG/5 ML UCUP PO PRN (04:35)
[2021-10-27] MEDS: ARFORMOTEROL TARTRATE 15 MCG/2 ML VIAL.NEB NEB SCH ×2 (08:20→19:40)
[2021-10-27] MEDS: HOME MED 1 EA UNK (Empagliflozin [Jardiance] 10 MG Tablet) PO SCH (08:21)
[2021-10-27] MEDS: INSULIN -REGULAR HUMAN 50 UNIT/0.5 ML ML SQ SCH ×4 (08:48→20:41)
[2021-10-27] MEDS: GABAPENTIN 300 MG CAP PO SCH (08:48)
[2021-10-27] MEDS: FUROSEMIDE 40 MG TABLET PO SCH (08:49)
[2021-10-27] MEDS: ROFLUMILAST 500 MCG TABLET PO SCH (08:49)
[2021-10-27] MEDS: ROPINIROLE HCL 1 MG TAB PO SCH ×3 (08:49→20:44)
[2021-10-27] MEDS: PANTOPRAZOLE 40MG TABLET PO SCH (08:49)
[2021-10-27] MEDS: AZITHROMYCIN 250 MG TAB PO SCH (08:49)
[2021-10-27] MEDS: predniSONE 20 MG TAB PO SCH ×2 (08:49→20:44)
[2021-10-27] MEDS: INSULIN GLARGINE 100 UNIT/ML SQ SCH ×2 (08:49→20:41)
[2021-10-27] MEDS: SPIRONOLACTONE 25 MG TABLET PO SCH (08:49)
[2021-10-27] MEDS: APIXABAN 5 MG TABLET PO SCH ×2 (08:50→20:44)
[2021-10-27] MEDS: DOXYCYCLINE 100 MG CAP PO SCH ×2 (08:50→20:43)
[2021-10-27] MEDS: carvediloL 25 MG TAB PO SCH ×2 (08:50→20:52)
[2021-10-27] MEDS: JUVEN PACKET PO SCH ×2 (08:54→20:53)
--- NOTE | 2021-10-27 10:44 | P.PN ---
Date of Service: 10/27/21 Subjective Subjective: Patient is improving. Sitting up in bed and respiratory status is stable. Awaiting for transfer to shelter facility. Physical Examination - Vital Signs Reviewed - Physical Exam General: Alert, Oriented x3 HEENT: Atraumatic, Normocephalic Respiratory: Normal air movement Cardiovascular: Regular rate/rhythm, Normal S1 S2 Gastrointestinal: Soft and benign Musculoskeletal: No swelling Neurological: Normal speech Assessment And Plan - Plan 1. MRSA pneumonia 2. Nausea, vomiting, diarrhea 3. 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 Microcytic anemia 5. Diabetes mellitus type 2insulin-dependent 6. Atrial fibrillation on chronic anticoagulation 7. Hypertension 8. 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 Diabetes mellitus type 2insulin-dependent: We will continue long-acting insulin and sliding scale insulin. Atrial fibrillation on chronic anticoagulation: We will continue Eliquis, other home medications and monitor on telemetry. Hypertension: We will monitor vital signs per unit protocol and continue home meds. Hyperlipidemia: We will continue home meds Sacral decubiti: We will continue wound care recs. Continue working with physical therapy in order to try to get her to a shelter facility.
--- NOTE | 2021-10-27 10:45 | P.PN ---
Date of Service: 10/26/21 Subjective Subjective: Patient improving. Patient's clinical symptoms much better. Oxygenation requirements are improved. Physical Examination - Vital Signs Reviewed - Physical Exam General: Alert, Oriented x3 HEENT: Atraumatic, Normocephalic Respiratory: Normal air movement Cardiovascular: Regular rate/rhythm, Normal S1 S2 Gastrointestinal: Soft and benign Musculoskeletal: No swelling Neurological: Normal speech Assessment And Plan - Plan 1. MRSA pneumonia 2. Nausea, vomiting, diarrhea 3. 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 Microcytic anemia 5. Diabetes mellitus type 2insulin-dependent 6. Atrial fibrillation on chronic anticoagulation 7. Hypertension 8. 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 Diabetes mellitus type 2insulin-dependent: We will continue long-acting insulin and sliding scale insulin. Atrial fibrillation on chronic anticoagulation: We will continue Eliquis, other home medications and monitor on telemetry. Hypertension: We will monitor vital signs per unit protocol and continue home meds. Hyperlipidemia: We will continue home meds Sacral decubiti: We will continue wound care recs. Waiting on transfer to custodial facility
[2021-10-27 12:15] LABS: Absolute Lymphocytes (CBC) 0.3 K/uL (0.7-4.9); Lymphocytes % 2.3 % (15.3-44.8); MPV 8.6 fL (7.6-11.3); RBC Red Blood Cell Count 4.75 M/uL (3.86-4.86)
[2021-10-27 12:28] LABS: Potassium 4.7 mmol/L (3.5-5.1)
[2021-10-27 13:28] LABS: Anisocytosis SLIGHT; Blood Morphology Comment NOTED (NOT SEEN); Hypochromasia 1+; Ovalocytes 1+; Platelet Estimate ADEQ
--- NOTE | 2021-10-27 20:33 | P.PN ---
Date of Service: 10/27/21 Vital Signs Temp Pulse Resp BP Pulse Ox 97.0 F 81 16 115/69 94 10/27/21 16:00 10/27/21 16:00 10/27/21 16:00 10/27/21 16:00 10/27/21 16:00 Medications Acetaminophen (Acetaminophen 500 Mg Tab) 500 mg PO Q4HP PRN PRN Reason: Pain scale 2-4 (Mild) Last Admin: 10/19/21 05:08 Dose: 500 mg Documented by: Albuterol Sulfate (Albuterol 2.5 Mg/3 Ml Neb Leslie) 2.5 mg NEB Q6HP PRN PRN Reason: SHORTNESS OF BREATH Last Admin: 10/26/21 20:05 Dose: 2.5 mg Documented by: Apixaban (Apixaban 5 Mg Tablet) 5 mg PO BID [facility] Last Admin: 10/27/21 08:50 Dose: 5 mg Documented by: Arformoterol Tartrate (Arformoterol Tartrate 15 Mcg/2 Ml Vial.Neb) 15 mcg NEB BIDRESP [facility] Last Admin: 10/27/21 08:20 Dose: 15 mcg Documented by: Atorvastatin Calcium (Atorvastatin 20 Mg Tab) 20 mg PO BEDTIME [facility] Last Admin: 10/26/21 21:46 Dose: 20 mg Documented by: Azithromycin (Azithromycin 250 Mg Tab) 500 mg PO DAILY [facility] Last Admin: 10/27/21 08:49 Dose: 500 mg Documented by: Benzonatate (Benzonatate 100 Mg Cap) 100 mg PO TID PRN PRN Reason: COUGH Last Admin: 10/26/21 22:01 Dose: 100 mg Documented by: Carvedilol (Carvedilol 25 Mg Tab) 25 mg PO BID [facility] Last Admin: 10/27/21 08:50 Dose: 25 mg Documented by: Digoxin (Digoxin 0.125 Mg Tablet) 0.125 mg PO MoWeFr@0900 [facility] Last Admin: 10/26/21 08:41 Dose: 0.125 mg Documented by: Doxycycline Monohydrate (Doxycycline 100 Mg Cap) 100 mg PO BID [facility]; Protocol Stop: 11/01/21 11:11 Last Admin: 10/27/21 08:50 Dose: 100 mg Documented by: Furosemide (Furosemide 40 Mg Tablet) 40 mg PO DAILY [facility] Last Admin: 10/27/21 08:49 Dose: 40 mg Documented by: Gabapentin (Gabapentin 300 Mg Cap) 300 mg PO DAILY [facility] Last Admin: 10/27/21 08:48 Dose: 300 mg Documented by: Guaifenesin (Guaifenesin 100 Mg/5 Ml Ucup) 200 mg PO QIDP PRN PRN Reason: COUGH Last Admin: 10/27/21 04:35 Dose: 200 mg Documented by: Home Med (Empagliflozin [Jardiance]) 10 mg PO DAILY [facility] Last Admin: 10/27/21 08:21 Dose: Not Given Documented by: Insulin Glargine (Insulin Glargine 100 Unit/Ml) 10 unit SQ BID [facility] Last Admin: 10/27/21 08:49 Dose: 10 unit Documented by: Insulin Human Regular (Insulin -Regular Human 50 Unit/0.5 Ml Ml) 0 unit SQ [facility]; Protocol Last Admin: 10/27/21 16:59 Dose: 10 unit Documented by: Ipratropium [place] (Ipratropium Brom 0.5mg/2.5ml) 0.5 mg NEB [id number] PRN PRN Reason: WHEEZING Last Admin: 10/26/21 20:05 Dose: 0.5 mg Documented by: L-Arginine/L-Glutamine/HMB (Jules Packet) 1 pkt PO BID [facility] Last Admin: 10/27/21 08:54 Dose: 1 pkt Documented by: Ondansetron HCl (Ondansetron 4 Mg/2 Ml Vial) 4 mg IV Q6HP PRN PRN Reason: NAUSEA / VOMITING Last Admin: 10/22/21 05:44 Dose: 4 mg Documented by: Pantoprazole Sodium (Pantoprazole 40mg Tablet) 40 mg PO DAILY [facility] Last Admin: 10/27/21 08:49 Dose: 40 mg Documented by: Prednisone (Prednisone 20 Mg Tab) 20 mg PO BID [facility] Last Admin: 10/27/21 08:49 Dose: 20 mg Documented by: Roflumilast (Roflumilast 500 Mcg Tablet) 500 mcg PO DAILY [facility] Last Admin: 10/27/21 08:49 Dose: 500 mcg Documented by: Ropinirole HCl (Ropinirole Hcl 1 Mg Tab) 2 mg PO TID [facility] Last Admin: 10/27/21 14:24 Dose: 2 mg Documented by: Sodium Chloride (Flush Normal Saline 10 Ml) 10 ml IV BID [facility] Last Admin: 10/27/21 08:54 Dose: 10 ml Documented by: Spironolactone (Spironolactone 25 Mg Tablet) 25 mg PO DAILY [facility] Last Admin: 10/27/21 08:49 Dose: 25 mg Documented by: Microbiology Results 10/18/21 21:50 Blood - Blood Aerobic Blood Culture - Final No growth in 5 days. 10/18/21 21:50 Blood - Blood Anaerobic Blood Culture - Final No growth in 5 days. 10/18/21 22:10 Blood - Blood Aerobic Blood Culture - Final No growth in 5 days. 10/18/21 22:10 Blood - Blood Anaerobic Blood Culture - Final No growth in 5 days. Assessment/ Plan: Nephrology Dyspnea improving. Cough No chest pain Fatigue and weakness No acute events overnight Vitals, medications, blood work and imaging reviewed in the chart. General: Oriented x3, Cooperative HEENT: Atraumatic Neck: Supple Respiratory: Expiratory wheezes Cardiovascular: Trace edema Gastrointestinal: Soft and benign, Non-distended Musculoskeletal: No clubbing, No contractures Integumentary: No rashes, No cyanosis Neurological: Normal speech Blood work reviewed in the chart. Imagings Data: [facility] CLINICAL HISTORY: Cough COMPARISON: October 18, 2021 FINDINGS: Mild bilateral interstitial lung opacities. Heart is moderately enlarged IMPRESSION: Mild bilateral interstitial lung opacities without significant change. This may represent mild interstitial pulmonary edema or atypical pneumonia/pneumonitis Conclusions/Impression: Hyponatremia -Continue furosemide HTN with CKD/ CHF -Continue Coreg Diastolic CHF, A/C -Continue furosemide -Continue spironolactone -Continue Coreg DM II with polyneuropathy -Continue Lantus -RISS -Continue gabapentin Mild malnutrition -Encourage nutrition Anemia in chronic illness Iron deficiency 4.7% -IV iron as ordered -Monitor H&H
[2021-10-27] MEDS: BENZONATATE 100 MG CAP PO PRN (20:42)
[2021-10-27] MEDS: ALOGLIPTIN BENZOATE 12.5 MG TABLET PO SCH (20:42)
[2021-10-27] MEDS: ATORVASTATIN 20 MG TAB PO SCH (20:44)
[2021-10-28] MEDS: guaiFENesin 100 MG/5 ML UCUP PO PRN ×2 (01:09→22:22)
[2021-10-28 05:52] LABS: Absolute Lymphocytes (CBC) 0.4 K/uL (0.7-4.9); Hematocrit 33.1 % (36.0-45.0); Lymphocytes % 3.1 % (15.3-44.8); MPV 8.5 fL (7.6-11.3); RBC Red Blood Cell Count 4.67 M/uL (3.86-4.86)
[2021-10-28 06:15] LABS: Potassium 4.7 mmol/L (3.5-5.1)
--- NOTE | 2021-10-28 07:30 | RAD REPORT ---
EXAM DESCRIPTION: RAD - Chest Single View - 10/28/2021 5:48 am CLINICAL HISTORY: pneumonia COMPARISON: Portable 10/23/2021 TECHNIQUE: AP portable chest image was obtained 10/28/2021 5:48 am . FINDINGS: No new focal lung parenchymal process. Prominent interstitial pattern has not changed. Car diac silhouette is enlarged, similar or only fractionally improved from 10/23/2021 imaging. Upper lob e vasculature similar to prior imaging. No measurable pleural effusion and no pneumothorax. No acute bony abnormality seen. No acute aortic findings suspected. IMPRESSION: No substantial change to the chest from 10/23/2021 examination. Enlarged heart size may have shown fractional improvement.
[2021-10-28] MEDS: ARFORMOTEROL TARTRATE 15 MCG/2 ML VIAL.NEB NEB SCH ×2 (07:52→20:10)
[2021-10-28] MEDS: DOXYCYCLINE 100 MG CAP PO SCH ×2 (09:00→21:00)
[2021-10-28] MEDS: HOME MED 1 EA UNK (Empagliflozin [Jardiance] 10 MG Tablet) PO SCH (09:00)
[2021-10-28 09:29] LABS: Blood Morphology Comment NOTED (NOT SEEN); Platelet Estimate ADEQ
[2021-10-28 09:30] LABS: Anisocytosis SLIGHT; Hypochromasia 1+
[2021-10-28] MEDS: INSULIN -REGULAR HUMAN 50 UNIT/0.5 ML ML SQ SCH ×4 (09:35→22:18)
[2021-10-28] MEDS: INSULIN GLARGINE 100 UNIT/ML SQ SCH ×2 (09:36→22:19)
[2021-10-28] MEDS: ROPINIROLE HCL 1 MG TAB PO SCH ×3 (09:37→22:20)
[2021-10-28] MEDS: DIGOXIN 0.125 MG TABLET PO SCH (09:37)
[2021-10-28] MEDS: ROFLUMILAST 500 MCG TABLET PO SCH (09:37)
[2021-10-28] MEDS: JUVEN PACKET PO SCH ×2 (09:37→21:00)
[2021-10-28] MEDS: SPIRONOLACTONE 25 MG TABLET PO SCH (09:37)
[2021-10-28] MEDS: GABAPENTIN 300 MG CAP PO SCH (09:38)
[2021-10-28] MEDS: APIXABAN 5 MG TABLET PO SCH ×2 (09:38→22:21)
[2021-10-28] MEDS: AZITHROMYCIN 250 MG TAB PO SCH (09:38)
[2021-10-28] MEDS: PANTOPRAZOLE 40MG TABLET PO SCH (09:38)
[2021-10-28] MEDS: carvediloL 25 MG TAB PO SCH ×2 (09:38→22:21)
[2021-10-28] MEDS: FUROSEMIDE 40 MG TABLET PO SCH (09:39)
[2021-10-28] MEDS: predniSONE 20 MG TAB PO SCH ×2 (09:39→22:21)
[2021-10-28] MEDS: ALOGLIPTIN BENZOATE 12.5 MG TABLET PO SCH (22:19)
[2021-10-28] MEDS: ATORVASTATIN 20 MG TAB PO SCH (22:21)
[2021-10-29] MEDS ORDERED: DIPHENHYDRAMINE 25 MG TAB/CAP PO ONE (03:06)
[2021-10-29] MEDS: INSULIN -REGULAR HUMAN 50 UNIT/0.5 ML ML SQ SCH ×2 (07:30→11:42)
[2021-10-29] MEDS: ARFORMOTEROL TARTRATE 15 MCG/2 ML VIAL.NEB NEB SCH (08:16)
[2021-10-29] MEDS: PANTOPRAZOLE 40MG TABLET PO SCH (08:45)
[2021-10-29] MEDS: carvediloL 25 MG TAB PO SCH (08:45)
[2021-10-29] MEDS: DOXYCYCLINE 100 MG CAP PO SCH (08:45)
[2021-10-29] MEDS: predniSONE 20 MG TAB PO SCH (08:46)
[2021-10-29] MEDS: SPIRONOLACTONE 25 MG TABLET PO SCH (08:46)
[2021-10-29] MEDS: GABAPENTIN 300 MG CAP PO SCH (08:46)
[2021-10-29] MEDS: AZITHROMYCIN 250 MG TAB PO SCH (08:46)
[2021-10-29] MEDS: ROFLUMILAST 500 MCG TABLET PO SCH (08:46)
[2021-10-29] MEDS: ROPINIROLE HCL 1 MG TAB PO SCH (08:46)
[2021-10-29] MEDS: FUROSEMIDE 40 MG TABLET PO SCH (08:46)
[2021-10-29] MEDS: JUVEN PACKET PO SCH (08:49)
[2021-10-29] MEDS: INSULIN GLARGINE 100 UNIT/ML SQ SCH (08:49)
[2021-10-29] MEDS: HOME MED 1 EA UNK (Empagliflozin [Jardiance] 10 MG Tablet) PO SCH (08:49)
[2021-10-29] MEDS: APIXABAN 5 MG TABLET PO SCH (08:54)
[2021-10-29 09:17] VITALS: O2SAT 94
--- NOTE | 2021-10-29 09:51 | P.PN ---
Date of Service: 10/28/21 Vital Signs Temp Pulse Resp BP Pulse Ox 96.7 F L 66 16 129/50 L 95 10/29/21 08:00 10/29/21 08:46 10/29/21 08:00 10/29/21 08:46 10/29/21 08:00 Medications Acetaminophen (Acetaminophen 500 Mg Tab) 500 mg PO Q4HP PRN PRN Reason: Pain scale 2-4 (Mild) Last Admin: 10/19/21 05:08 Dose: 500 mg Documented by: Albuterol Sulfate (Albuterol 2.5 Mg/3 Ml Neb Leslie) 2.5 mg NEB Q6HP PRN PRN Reason: SHORTNESS OF BREATH Last Admin: 10/26/21 20:05 Dose: 2.5 mg Documented by: Apixaban (Apixaban 5 Mg Tablet) 5 mg PO BID [facility] Last Admin: 10/29/21 08:54 Dose: 5 mg Documented by: Arformoterol Tartrate (Arformoterol Tartrate 15 Mcg/2 Ml Vial.Neb) 15 mcg NEB BIDRESP [facility] Last Admin: 10/29/21 08:16 Dose: 15 mcg Documented by: Atorvastatin Calcium (Atorvastatin 20 Mg Tab) 20 mg PO BEDTIME [facility] Last Admin: 10/28/21 22:21 Dose: 20 mg Documented by: Azithromycin (Azithromycin 250 Mg Tab) 500 mg PO DAILY [facility] Last Admin: 10/29/21 08:46 Dose: 500 mg Documented by: Benzonatate (Benzonatate 100 Mg Cap) 100 mg PO TID PRN PRN Reason: COUGH Last Admin: 10/27/21 20:42 Dose: 100 mg Documented by: Carvedilol (Carvedilol 25 Mg Tab) 25 mg PO BID [facility] Last Admin: 10/29/21 08:45 Dose: 25 mg Documented by: Digoxin (Digoxin 0.125 Mg Tablet) 0.125 mg PO MoWeFr@0900 [facility] Last Admin: 10/28/21 09:37 Dose: 0.125 mg Documented by: Doxycycline Monohydrate (Doxycycline 100 Mg Cap) 100 mg PO BID [facility]; Protocol Stop: 11/01/21 11:11 Last Admin: 10/29/21 08:45 Dose: 100 mg Documented by: Furosemide (Furosemide 40 Mg Tablet) 40 mg PO DAILY [facility] Last Admin: 10/29/21 08:46 Dose: 40 mg Documented by: Gabapentin (Gabapentin 300 Mg Cap) 300 mg PO DAILY [facility] Last Admin: 10/29/21 08:46 Dose: 300 mg Documented by: Guaifenesin (Guaifenesin 100 Mg/5 Ml Ucup) 200 mg PO QIDP PRN PRN Reason: COUGH Last Admin: 10/28/21 22:22 Dose: 200 mg Documented by: Home Med (Empagliflozin [Jardiance]) 10 mg PO DAILY [facility] Last Admin: 10/29/21 08:49 Dose: Not Given Documented by: Insulin Glargine (Insulin Glargine 100 Unit/Ml) 10 unit SQ BID [facility] Last Admin: 10/29/21 08:49 Dose: 10 unit Documented by: Insulin Human Regular (Insulin -Regular Human 50 Unit/0.5 Ml Ml) 0 unit SQ ACHS [facility]; Protocol Last Admin: 10/29/21 07:30 Dose: Not Given Documented by: Ipratropium [place] (Ipratropium Brom 0.5mg/2.5ml) 0.5 mg NEB [id number] PRN PRN Reason: WHEEZING Last Admin: 10/26/21 20:05 Dose: 0.5 mg Documented by: L-Arginine/L-Glutamine/HMB (Jules Packet) 1 pkt PO BID [facility] Last Admin: 10/29/21 08:49 Dose: 1 pkt Documented by: Ondansetron HCl (Ondansetron 4 Mg/2 Ml Vial) 4 mg IV Q6HP PRN PRN Reason: NAUSEA / VOMITING Last Admin: 10/22/21 05:44 Dose: 4 mg Documented by: Pantoprazole Sodium (Pantoprazole 40mg Tablet) 40 mg PO DAILY [facility] Last Admin: 10/29/21 08:45 Dose: 40 mg Documented by: Prednisone (Prednisone 20 Mg Tab) 20 mg PO BID [facility] Last Admin: 10/29/21 08:46 Dose: 20 mg Documented by: Roflumilast (Roflumilast 500 Mcg Tablet) 500 mcg PO DAILY [facility] Last Admin: 10/29/21 08:46 Dose: 500 mcg Documented by: Ropinirole HCl (Ropinirole Hcl 1 Mg Tab) 2 mg PO TID [facility] Last Admin: 10/29/21 08:46 Dose: 2 mg Documented by: Sodium Chloride (Flush Normal Saline 10 Ml) 10 ml IV BID [facility] Last Admin: 10/29/21 08:47 Dose: 10 ml Documented by: Spironolactone (Spironolactone 25 Mg Tablet) 25 mg PO DAILY [facility] Last Admin: 10/29/21 08:46 Dose: 25 mg Documented by: Microbiology Results 10/18/21 21:50 Blood - Blood Aerobic Blood Culture - Final No growth in 5 days. 10/18/21 21:50 Blood - Blood Anaerobic Blood Culture - Final No growth in 5 days. 10/18/21 22:10 Blood - Blood Aerobic Blood Culture - Final No growth in 5 days. 10/18/21 22:10 Blood - Blood Anaerobic Blood Culture - Final No growth in 5 days. Assessment/ Plan: Nephrology Cough and malaise No chest pain Fatigue and weakness No acute events overnight Vitals, medications, blood work and imaging reviewed in the chart. General: Oriented x3, Cooperative HEENT: Atraumatic Neck: Supple Respiratory: Expiratory wheezes Cardiovascular: Trace edema Gastrointestinal: Soft and benign, Non-distended Musculoskeletal: No clubbing, No contractures Integumentary: No rashes, No cyanosis Neurological: Normal speech Blood work reviewed in the chart. Imagings Data: [facility] CLINICAL HISTORY: Cough COMPARISON: October 18, 2021 FINDINGS: Mild bilateral interstitial lung opacities. Heart is moderately enlarged IMPRESSION: Mild bilateral interstitial lung opacities without significant change. This may represent mild interstitial pulmonary edema or atypical pneumonia/pneumonitis Conclusions/Impression: Hyponatremia -Continue furosemide HTN with CKD/ CHF -Continue Coreg Diastolic CHF, A/C -Continue furosemide -Continue spironolactone -Continue Coreg DM II with polyneuropathy -Continue Lantus -RISS -Continue gabapentin Mild malnutrition -Encourage nutrition Anemia in chronic illness Iron deficiency 4.7% -IV iron as ordered -Monitor H&H
--- NOTE | 2021-10-29 11:33 | P.DS ---
Discharge Date: 10/29/21 Disposition: TRANSFER TO INTERMEDIATE Discharge Condition: GOOD Reason for Admission: Dyspnea, hypoxia Brief History of Present Illness: 86-year-old female with history of CHF, diabetes mellitus type 2insulin-dependent, hypertension, hyperlipidemia presents to the emergency department for difficulty breathing. Patient reports ever since Sunday she has had nausea, vomiting, diarrhea as well as a cough which has been productive and shortness of breath. Patient was mildly hypoxic on room air 89%. Patient was evaluated here in the emergency department her labs were significant for hemoglobin of 9.0 hematocrit 29.5 MCV 72.8 stool guaiac was negative sodium 133 GFR 57 glucose 238 lactic acid 2.1 urinalysis pending influenza and Covid negative chest x-ray suspicious for possible pneumonia versus chronic lung changes patient with expiratory wheezing and persistent cough. ED provider wishes to admit for further evaluation and management. Vital Signs/Physical Exam: Temp Pulse Resp BP Pulse Ox 96.7 F L 66 16 129/50 L 95 10/29/21 08:00 10/29/21 08:46 10/29/21 08:00 10/29/21 08:46 10/29/21 08:00 Laboratory Data at Discharge: WBC 13.9 K/uL (4.3-10.9) H D 10/28/21 05:36 Hgb 10.4 g/dL (12.0-15.0) L 10/28/21 05:36 Hct 33.1 % (36.0-45.0) L 10/28/21 05:36 Plt Count 346 K/uL (152-406) 10/28/21 05:36 PT 16.1 SECONDS (9.5-12.5) H 10/18/21 22:10 INR 1.45 10/18/21 22:10 APTT 39.8 SECONDS (24.3-36.9) H 10/18/21 22:10 Sodium 133 mmol/L (136-145) L 10/28/21 05:36 Potassium 4.7 mmol/L (3.5-5.1) 10/28/21 05:36 BUN 45 mg/dL (7-18) H 10/28/21 05:36 Creatinine 0.96 mg/dL (0.55-1.3) 10/28/21 05:36 Glucose 269 mg/dL (74-106) H 10/28/21 05:36 Uric Acid 5.9 mg/dL (2.6-6.0) 10/25/21 05:30 Phosphorus 3.0 mg/dL (2.5-4.9) 10/25/21 05:30 Magnesium 1.7 mg/dL (1.8-2.4) L 10/25/21 05:30 Total Bilirubin 0.3 mg/dL (0.2-1.0) 10/25/21 05:30 AST 12 U/L (15-37) L 10/25/21 05:30 ALT 24 U/L (12-78) 10/25/21 05:30 Alkaline Phosphatase 115 U/L (45-117) 10/25/21 05:30 Home Medications: Amlodipine [Norvasc*] 5 mg PO DAILY 10/03/21 Apixaban [Eliquis] 5 mg PO BID 10/03/21 Ascorbic Acid [C-1000] 1,000 mg PO DAILY 10/03/21 Atorvastatin Calcium [Lipitor*] 20 mg PO BEDTIME 10/03/21 Carvedilol [Coreg] 25 mg PO BID 10/03/21 Digoxin 125 mcg PO M,W,F 10/03/21 Furosemide [Lasix*] 40 mg PO DAILY 10/03/21 Gabapentin 300 mg PO DAILY 10/03/21 Magnesium Oxide [Magnesium] 500 mg PO DAILY 10/03/21 Meclizine HCl 25 mg PO DAILY PRN 10/03/21 Omeprazole [Prilosec] 40 mg PO DAILY 10/03/21 Ropinirole HCl 2 mg PO TID 10/03/21 Empagliflozin [Jardiance] 10 mg PO DAILY 10/19/21 cloNIDine HCL [Clonidine HCl] 0.1 mg PO PRN PRN 10/19/21 Albuterol Neb [Proventil 0.083% Neb Soln] 2.5 mg NEB [id number] PRN #60 amp 10/29/21 Alogliptin Benzoate [Nesina] 25 mg PO BEDTIME #30 tablet 10/29/21 Amox/Clavulanate [Augmentin 875-125 Tab] 1 each PO BID #14 tab 10/29/21 Apixaban [Eliquis] 5 mg PO BID #60 tablet 04/23/22 Arformoterol Tartrate [Brovana] 15 mcg NEB BIDRESP #60 vial.neb 10/29/21 Benzonatate [Tessalon Perle*] 100 mg PO TID PRN #30 cap 10/29/21 Furosemide [Lasix*] 40 mg PO DAILY #30 tab 10/29/21 Insulin Glargine,Hum.rec.anlog [Basaglar Kwikpen U-100] 10 unit SQ BID #2 10/29/21 Jules [Jules*] 1 pkt PO BID #60 powd.pack 10/29/21 Linezolid [Zyvox] 600 mg PO BID #14 tab 10/29/21 Pantoprazole [Protonix Tab*] 40 mg PO DAILY #30 tab 10/29/21 Roflumilast [Daliresp*] 500 mcg PO DAILY #30 tablet 10/29/21 Spironolactone [Aldactone*] 25 mg PO DAILY #30 tab 10/29/21 predniSONE [Prednisone*] 20 mg PO BID #11 tab 10/29/21 New Medications: Spironolactone [Aldactone*] 25 mg PO DAILY #30 tab Amox/Clavulanate [Augmentin 875-125 Tab] 1 each PO BID #14 tab Insulin Glargine,Hum.rec.anlog [Basaglar Kwikpen U-100] 10 unit SQ BID #2 Arformoterol Tartrate [Brovana] 15 mcg NEB BIDRESP #60 vial.neb Roflumilast [Daliresp*] 500 mcg PO DAILY #30 tablet Apixaban [Eliquis] 5 mg PO BID #60 tablet Jules [Jules*] 1 pkt PO BID #60 powd.pack Furosemide [Lasix*] 40 mg PO DAILY #30 tab Alogliptin Benzoate [Nesina] 25 mg PO BEDTIME #30 tablet predniSONE [Prednisone*] 20 mg PO BID #11 tab Pantoprazole [Protonix Tab*] 40 mg PO DAILY #30 tab Albuterol Neb [Proventil 0.083% Neb Soln] 2.5 mg NEB [id number] PRN #60 amp PRN Reason: Shortness Of Breath Benzonatate [Tessalon Perle*] 100 mg PO TID PRN #30 cap PRN Reason: Cough Linezolid [Zyvox] 600 mg PO BID #14 tab Physician Discharge Instructions: -DC IV and DC to [facility] -Follow-up with PCP in 1 to 2 weeks -Follow-up with pulmonary and cardiology in 1 to 2 weeks -Please call Dr. Teague at [phone] if any questions regarding hospital stay -Please call nursing station at [phone] if any nursing or medication questions -Return to the emergency room if symptoms worsen Diet: Renal Activity: Fall precautions Followup: Neo Garcia DO [Primary Care Provider] -
--- NOTE | 2021-10-29 11:33 | P.PN ---
Date of Service: 10/28/21 Subjective Subjective: Chest x-ray with no significant worsening. Respiratory status is stable. Anticipate discharge in the morning. Physical Examination - Vital Signs Reviewed - Physical Exam General: Alert, Oriented x3 HEENT: Atraumatic, Normocephalic Respiratory: Normal air movement Cardiovascular: Regular rate/rhythm, Normal S1 S2 Gastrointestinal: Soft and benign Musculoskeletal: No swelling Neurological: Normal speech Assessment And Plan - Plan 1. MRSA pneumonia 2. Nausea, vomiting, diarrhea 3. 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 Microcytic anemia 5. Diabetes mellitus type 2insulin-dependent 6. Atrial fibrillation on chronic anticoagulation 7. Hypertension 8. 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 Diabetes mellitus type 2insulin-dependent: We will continue long-acting insulin and sliding scale insulin. Atrial fibrillation on chronic anticoagulation: We will continue Eliquis, other home medications and monitor on telemetry. Hypertension: We will monitor vital signs per unit protocol and continue home meds. Hyperlipidemia: We will continue home meds Sacral decubiti: We will continue wound care recs. Continue working with physical therapy in order to try to get her to a care home facility.
[2021-10-29] MEDS ORDERED: ALBUTEROL 2.5 MG/3 ML NEB SOL NEB PRN (12:00)
[2021-10-29] MEDS ORDERED: INFLUENZA VACCINE (for 6+ mo) 0.5 ML DOSE IMVAC ONE (12:00)
[2021-10-29 12:58] VITALS: BP 135/65; TEMP 96.6
== END 2021-10-29 14:57 | DRG 871 ==
LOC: ER 20:15 → ERHOLD 10-19 01:06 → 2ND 10-19 15:20
PROVIDERS: ADMIT Internal Medicine Nephrology; ATTEND Internal Medicine Nephrology
DX: A41.9 Sepsis, unspecified organism (principal); L89.153 Pressure ulcer of sacral region, stage 3; I50.33 Acute on chronic diastolic (congestive) heart failure; J15.212 Pneumonia due to Methicillin resistant Staphylococcus aureus; I13.0 Hypertensive heart and chronic kidney disease with heart failure and stage 1 through stage 4 chronic kidney disease, or unspecified chronic kidney disease; N39.0 Urinary tract infection, site not specified; E87.1 Hypo-osmolality and hyponatremia; E44.1 Mild protein-calorie malnutrition; E11.22 Type 2 diabetes mellitus with diabetic chronic kidney disease; R65.20 Severe sepsis without septic shock; B96.1 Klebsiella pneumoniae [K. pneumoniae] as the cause of diseases classified elsewhere; B96.4 Proteus (mirabilis) (morganii) as the cause of diseases classified elsewhere; D50.9 Iron deficiency anemia, unspecified; I48.91 Unspecified atrial fibrillation; E78.5 Hyperlipidemia, unspecified; Z68.30 Body mass index [BMI] 30.0-30.9, adult; E11.42 Type 2 diabetes mellitus with diabetic polyneuropathy; R09.02 Hypoxemia; R06.03 Acute respiratory distress; N18.31 Chronic kidney disease, stage 3a; Z79.4 Long term (current) use of insulin; Z79.01 Long term (current) use of anticoagulants; Z88.0 Allergy status to penicillin; Z20.822 Contact with and (suspected) exposure to COVID-19; Z23 Encounter for immunization
CPT/HCPCS: 0240U; 36415; 71045; 80048; 80053; 81003; 81015; 82728; 82947; 83540; 83605; 83735; 83880; 84100; 84466; 84550; 85025; 85610; 85730; 87040; 87070; 87077; 87086; 87088; 87186; 87205; 90471; 93005; 93306; 94010; 96374; 97116; 97161; 97530; 99251; 99285; J0456; J1815; J1940; J2405; J2916; J2930; J7050; J7512; J7605; Q2035; U0003

== ENCOUNTER 2021-12-08 19:42 | Emergency (ER) | payer MEDICARE ==
--- OUTSIDE RECORDS SUMMARY | 2021-12-08 19:55 | XMS REPORT | Continuity of Care Document ---
:1935 Author Organization [facility] t Address [address] [place] [address] Care Team Providers Name Role Phone Mallika Olson DO Primary Care Physician Doctor Unassigned, Name Attending Clinician Unavailable Baldo LOPEZ Attending Clinician Josue LUEVANO Attending Clinician Unavailable Singer LOPEZ Attending Clinician Rod LOPEZ Attending Clinician Kenna REYES, B Attending Clinician Cindy HUANG Attending Clinician Scott LUEVANO, A Attending Clinician Unavailable Only, Db Test Attending Clinician Unavailable [place] INSPECTOR RUBBER STAMP DIE Attending Clinician ANGELES Attending Clinician Unavailable Pob, Lab Main Attending Clinician Unavailable Mallika Olson DO Attending Clinician Mallika OLSON Attending Clinician Unavailable Skinny-Mbayo_A_AH Attending Clinician Unavailable Vaughn MCGILL Attending Clinician Unavailable Reza Werner DO Attending Clinician Unknown Attending Clinician Unavailable Frankie LUNA Attending Clinician Unavailable Marcella Serna Attending Clinician Frankie Luna MD Attending Clinician Ruben GONZALES Attending Clinician Unavailable Chirs LUEVNAO Attending Clinician Alondra CRISTINA R Attending Clinician Howard HUANG Attending Clinician Rod LOPEZ Admitting Clinician Cindy HUANG Admitting Clinician Skinny-Mbayo_A_AH Admitting Clinician Unavailable JONY ENG Admitting Clinician Unavailable Howard HUANG Admitting Clinician Payers Payer Name Policy Type Policy Number Effective Date Expiration Date S edelmira MANAGED MEDICARE [id number] 2020 HMO GENERIC 00:00:00 [place] [place] - [id number] 2019 2020 [place] 00:00:00 00:00:00 (MEDICARE REPLACEMENT/ADVAN TAGE - HMO) [employer] [place] [id number] 2019 2020 PLUS 00:00:00 00:00:00 CLASSIC/VALUE Problems [...] Practic 00 e Gastroesop Gastroesop Problem Active 2020- V illage hageal hageal 6-11 Family reflux Reflux 00:00: Practic disease Disease 00 e without without esophagiti Esophagiti s s Fall Fall Disease Active 2019- Univers 2-17 ity of 00:00: [place] 00 Medical Branch Sepsis due Sepsis due Disease Active 2019 U nivers to urinary to urinary 9 it y of tract tract 00:00: [place] infection infection 00 [facility] Fever in Fever in Disease Active Unive rs adult adult 9 ity of 00:00: [place] 00 Medical Branch Chronic Chronic Disease Active Univers atrial atrial 4-24 ity of fibrillati fibrillati 00:[place] Essential Essential Disease Active Uni vers hypertensi hypertensi 4-24 it y of on on 00:00: [place] 00 Medical Branch Other Other Disease Active Univers hyperlipid hyperlipid 4-24 it y of emia emia 00:00: [place] 00 Medical Branch 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 00 Medica l mellitus) mellitus) Bran ch Bronchitis Bronchitis Disease Active 2018- U nivers 4-24 ity of 00:00: [place] 00 Medical Branch Acute Acute Disease Active 2019 Univers exacerbati exacerbati 4-23 it y of on of CHF on of CHF 00:[place] (congestiv (congestiv 00 Me dical e heart e heart Branch failure) failure) Acute Acute Disease Active 2019 Univers exacerbati exacerbati 4-23 it y of on of CHF on of CHF 00:[place] (congestiv (congestiv 00 Me dical e heart e heart Branch failure) failure) Heart Heart Disease Active 2019- Univers failure, failure, 4-23 ity of acute on acute on 00:00: [place] chronic, chronic, 00 Medica l systolic systolic Branch and and diastolic diastolic Cellulitis Cellulitis Disease Active 2017-07 U nivers of right of right 2-29 ity of leg leg 00:00: [place] [id number] Medical Branch 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 00:[place]: [place]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 00 Medical accident) accident) Bran ch Hypotensio Hypotensio Disease Active U nivers n n 6-30 ity of 00:00: [place] [facility] 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 5-15 it y of is is 00:00: [place] [facility] Pseudogout Pseudogout Disease Active U nivers 5-15 ity of 00:00: [place] [facility] Delirium Delirium Disease Active Unive [...] tachycardi tachycardi 00:00: [place] a a 00 [place] Arthritis Arthritis Disease Active Uni [...] 00 Medical Branch Levoflox Propensi Active Rash 2018-0 Univer s acin ty to 5-14 ity of adverse 00:00: [place] reaction 00 Medical s Branch PENICILL Drug Active Swelling Univer s INS Class 6-13 ity of 00:00: [place] 00 Medical Branch Penicill Propensi Active Swelling 0 Univ ers ins ty to 6-13 ity of adverse 00:00: [place] reaction Medical s Branch Penicill Propensi Active Swelling Univ ers ins ty to 6-13 ity of adverse 00:00: [place] reaction Medical s Branch ADHESIVE DRUG Active ITCHING Univers TAPE-TERESA 8-16 ity of ICONES 00:00: [place] [facility] CEPHALEX DRUG Active Swelling Univer s IN INGREDI 8-16 ity of 00:00: [place] [facility] Adhesive Propensi Active Itching Unive rs Tape-Teresa ty to 8-16 ity of icones adverse 00:00: [place] reaction Medical s Branch Cephalex Propensi Active Swelling Univ ers in ty to 8-16 ity of adverse 00:00: [place] reaction 00 [...] Quantity Comments Source Exposure to Not sure [place] of SARS-CoV-2 (event) [facility] Alcohol intake 2021-03-23 2021-03-23 Current University of 00:00:00 00:00:00 non-drinker of [facility] alcohol Branch (finding) Tobacco Comment 2021-03-16 2021-03-16 Quit in 1995 Univers ity of 00:00:00 00:00:00 [place] [facility] History [facility] 2019-03-11 2019-03-11 5 University o f Financial 00:00:00 00:00:00 [place] [facility] History [facility] Food 2019-03-11 2019-03-11 1 Univers ity of Worry 00:00:00 00:00:00 [place] [facility] History [facility] Food 2019-03-11 2019-03-11 1 Univers ity of Scarcity 00:00:00 00:00:00 [place] [facility] History [facility] 2019-03-11 2019-03-11 2 University o f Transport Med 00:00:00 00:00:00 [place] Medic al Branch History SDOH 2019-03-11 2019-03-11 2 University o f Transport Non-Med 00:00:00 00:00:00 [facility] Branch Cigarettes smoked 2017-11-10 2017-11-10 Univers ity of current (pack per 00:00:00 00:00:00 [facility] ) - Reported Branch Cigarette 2017-11-10 2017-11-10 University of pack-years 00:00:00 00:00:00 [facility] Tobacco use and 2017-11-10 2017-11-10 Never used Universit y of exposure 00:00:00 00:00:00 [facility] Sex [birth year] At [birth year] Universit y of 00:00:00 00:00:00 [facility] Smoking Status Start Date Stop Date Source Former smoker 2017-11-10 00:00:00 2017-11-10 00:00:00 [facility] Medications Ordered Filled Start Stop Current Ordering [...] 04/06/21 at 1015, SELINA bumetanide 2020- No [id number] 1mg Take 1 Univers 1 mg tablet 03-30 [id number] tablet by ity of 00:00: 04:59 mouth [place] 00 :00 daily for Medical 30 days. Branch bumetanide 2020- No [id number] 1mg Take 1 Univers 1 mg tablet 03-30 [id number] tablet by ity of 00:00: 04:59 mouth [place] 00 :00 daily for Medical 30 days. Branch bumetanide 2020- No [id number] 1mg Take 1 Univers 1 mg tablet 03-30 [id number] tablet by ity of 00:00: 04:59 mouth [place] 00 :00 daily for Medical 30 days. Branch bumetanide 2020- No [id number] 1mg Take 1 Univers 1 mg tablet 03-30 [id number] tablet by ity of 00:00: 04:59 mouth [place] 00 :00 daily for Medical 30 days. Branch bumetanide 2020- No [id number] 1mg Take 1 Univers 1 mg tablet 03-30 [id number] tablet by ity of 00:00: 04:59 mouth [place] 00 :00 daily for Medical 30 days. Branch bumetanide 2020- No [id number] 1mg Take 1 Univers 1 mg tablet 03-30 [id number] tablet by ity of 00:00: 04:59 mouth [place] 00 :00 daily for Medical 30 days. Branch ascorbic Yes 500mg Take 500 Univ [...] [place] 00 First dose Medical on [facility] 03/29/21 at 0900, Until Discontinu ed, Routine bumetanide Yes 1mg 1 mg, Univer s (BUMEX) 03-29 Oral, ity of tablet 1 mg 14:00: DAILY, [place] 00 First dose Medical on [facility] 03/29/21 at 0900, Until Discontinu ed, Routine furosemide 2020- No 40mg Take 40 mg Univers (LASIX) 40 03-29 by mouth ity of mg tablet 12:56: 00:00 daily. [place] 46 :00 Medical Branch amLODIPine 2020- No 5mg Take 5 mg U nivers 5 mg tablet 03-29 by mouth ity of 12:56: 00:00 daily. [place] 46 :00 [facility] Branch furosemide 2020- No 40mg Take 40 mg Univers (LASIX) 40 03-29 by mouth ity of mg tablet 12:56: 00:00 daily. [place] [id number] :00 [facility] Branch amLODIPine 2020- No 5mg Take 5 mg U nivers 5 mg tablet 03-29 by mouth ity of 12:56: 00:00 daily. [place] [address] :00 [facility] Branch albuterol-i 2020- No [id number] 1{puff} Inhale 1 Univers pratropium 03-29 [id number] Puff every ity of 20-100 00:00: 04:59 6 (six) [place] mcg/actuati 00 :00 hours for Med ical on inhaler 30 days. Branc h benzonatate 2020- No [id number] 100mg Take 1 Univers 100 mg 03-29 [id number] capsule by ity of capsule 00:00: 04:59 mouth 3 [place] 00 :00 (three) Medical times Paicines daily as needed for Cough for up to 30 days. albuterol-i 2020- No [id number] 1{puff} Inhale 1 Univers pratropium 03-29 [id number] Puff every ity of 20-100 00:00: 04:59 6 (six) [place] mcg/actuati 00 :00 hours for Med ical on inhaler 30 days. Branc h benzonatate 2020- No [id number] 100mg Take 1 Univers 100 mg 03-29 [id number] capsule by ity of capsule 00:00: 04:59 mouth 3 [place] 00 :00 (three) Medical times Paicines daily as needed for Cough for up to 30 days. albuterol-i 2020- No [id number] 1{puff} Inhale 1 Univers pratropium 03-29 [id number] Puff every ity of 20-100 00:00: 04:59 6 (six) [place] mcg/actuati 00 :00 hours for Med ical on inhaler 30 days. Branc h benzonatate 2020- No [id number] 100mg Take 1 Univers 100 mg 9-21 10-22 [id number] capsule by ity of capsule 00:00: 04:59 mouth 3 [place] 00 :00 (three) Medical times Branch daily as needed for Cough for up to 30 days. albuterol-i 2020- No [id number] 1{puff} Inhale 1 Univers pratropium 9-21 10-22 [id number] Puff every ity of 20-100 00:00: 04:59 6 (six) [place] mcg/actuati 00 :00 hours for Med ical on inhaler 30 days. Branc h benzonatate 2020- No [id number] 100mg Take 1 Univers 100 mg 9-21 10- [id number] capsule by ity of capsule 00:00: 04:59 mouth 3 [place] 00 :00 (three) Medical times Branch daily as needed for Cough for up to 30 days. albuterol-i 2020- No [id number] 1{puff} Inhale 1 Univers pratropium 9-21 10-22 [id number] Puff every ity of 20-100 00:00: 04:59 6 (six) [place] mcg/actuati 00 :00 hours for Med ical on inhaler 30 days. Branc h benzonatate 2020- No [id number] 100mg Take 1 Univers 100 mg 9-21 - [id number] capsule by ity of capsule 00:00: 04:59 mouth 3 [place] 00 :00 (three) Medical times Branch daily as needed for Cough for up to 30 days. albuterol-i 2020- No [id number] 1{puff} Inhale 1 Univers pratropium 9-21 10-22 [id number] Puff every ity of 20-100 00:00: 04:59 6 (six) [place] mcg/actuati 00 :00 hours for Med ical on inhaler 30 days. Branc h benzonatate 2020- No [id number] 100mg Take 1 Univers 100 mg 9-21 10-22 [id number] capsule by ity of capsule 00:00: 04:59 mouth 3 [place] 00 :00 (three) Medical times Branch daily as needed for Cough for up to 30 days. diphenhydrA 2020- No [id number] 25mg Take 1 Univers MINE 25 mg 03-29 [id number] tablet by ity of tablet 00:00: 04:59 mouth [place] 00 :00 every 4 Medical (four) Branch hours as needed for Itching for up to 7 days. diphenhydrA 2020- No [id number] 25mg Take 1 Univers MINE 25 mg 03-29 [id number] tablet by ity of tablet 00:00: 04:59 mouth [place] 00 :00 every 4 Medical (four) Branch hours as needed for Itching for up to 7 days. diphenhydrA 2020- No [id number] 25mg Take 1 Univers MINE 25 mg 03-29 [id number] tablet by ity of tablet 00:00: 04:59 mouth [place] 00 :00 every 4 Medical (four) Branch hours as needed for Itching for up to 7 days. diphenhydrA 2020- No [id number] 25mg Take 1 Univers MINE 25 mg 03-29 [id number] tablet by ity of tablet 00:00: 04:59 mouth [place] 00 :00 every 4 Medical (four) Branch hours as needed for Itching for up to 7 days. fludrocorti 2020- No .2mg 0.2 mg, Un adali sone 03-28 Oral, ONCE ity of (FLORINEF) 16:15: 15:45 NOW, 1 [place] tablet 0.2 00 :00 dose, On Medic al mg Sun03/28/21 at 1115, Routine fludrocorti 2020- No .2mg 0.2 mg, Un adali sone 03-28 Oral, ONCE ity of (FLORINEF) 16:15: 15:45 NOW, 1 [place] tablet 0.2 00 :00 dose, On Medic al mg Sun03/28/21 at 1115, Routine sodium 2020- No 1g 1 g, Oral, Univ ers chloride 03-28 QID, 4 ity of tablet 1 g 15:30: 12:54 doses, [place] 00 :00 First dose Medical on Sun20/21 at 1030, Last dose on [facility] 03/28/21 at 1999, Routine sodium 2020- No 1g 1 g, Oral, Univ ers chloride 03-28 QID, 4 ity of tablet 1 g 15:30: 12:54 doses, [place] 00 :[address] First dose Medical on [facility] 03/28/21 at 1030, Last dose on [facility] 03/28/21 at 2000, Routine NaCl 0.9% 2020- No 500mL at 50 Unive rs (NS) IV 03-27 09-19 mL/hr, IV ity of infusion 17:30: 16:47 Infusion, [place] as 500 mL 00 :00 ONCE, 1 Medical dose, On [facility] 03/27/21 at 1230, Routine NaCl 0.9% 2020- No 500mL at 50 Unive rs (NS) IV 03-27 09- mL/hr, IV ity of infusion 17:30: 16:47 Infusion, [place] as 500 mL 00 :00 ONCE, 1 Medical dose, On [facility] 03/27/21 at 1230, Routine albuterol-i Yes 1{puff} 1 Puff, Univers pratropium 9-17 Inhalation ity of (COMBIVENT 17:00: , Q6H, [place] RESPIMAT) 00 First dose Medi micky 20-100 on Sun Paicines mcg/actuati 03/25/21 at on inhaler 1200, 1 Puff Until Discontinu ed, Routine
Is this order for a patient with suspected or confirmed COVID-19 infection? Yes albuterol-i Yes 1{puff} 1 Puff, Univers pratropium 9-17 Inhalation ity of (COMBIVENT 17:00: , Q6H, [place] RESPIMAT) 00 First dose Medi micky 20-100 on Sun Paicines mcg/actuati 03/25/21 at on inhaler 1200, 1 Puff Until Discontinu ed, Routine
Is this order for a patient with suspected or confirmed COVID-19 infection? Yes codeine-gua Yes 10mL 10 mL, Univ ers ifenesin 03-25 Oral, ity of (ROBITUSSIN 15:38: Q6HPRN, [place] as AC) 10-100 24 Starting Medic al mg/5 mL on Fri Branch oral 03/25/21 at solution 10 1038, mL Until Discontinu ed, Routine, Cough codeine-gua 2020-0 Yes 10mL 10 mL, Univ ers ifenesin 03-25 Oral, ity of (ROBITUSSIN 15:38: Q6HPRN, [place] as AC) 10-100 24 Starting Medic al mg/5 mL on Sun Branch oral 03/25/21 at solution 10 1038, mL Until Discontinu ed, Routine, Cough digoxin 2020-0 Yes 125ug 125 mcg, Unive rs (LANOXIN) 03-25 Oral, ity of tablet 125 14:00: QMON/WEDS/ [place] mcg 00 SUN, First Medical dose on Branch Sun03/25/21 at 0900, Until Discontinu ed, Routine digoxin 2020-0 Yes 125ug 125 mcg, Unive rs (LANOXIN) 03-25 Oral, ity of tablet 125 14:00: QMON/WEDS/ [place] mcg 00 SUN, First Medical dose on Branch Sun03/25/21 at 0900, Until Discontinu ed, Routine diphenhydrA 2020-0 Yes 25mg 25 mg, Univ ers MINE 03-24 Oral, ity of (BENADRYL) 21:00: Q4HPRN, [place] tablet 25 12 Starting Medica l mg on [facility] Branch 03/24/21 at 1600, Until Discontinu ed, Routine, Itching diphenhydrA 2020-0 Yes 25mg 25 mg, Univ ers MINE 03-24 Oral, ity of (BENADRYL) 21:00: Q4HPRN, [place] tablet 25 12 Starting Medica l mg on [facility] 03/24/21 at 1600, Until Discontinu ed, Routine, Itching SITagliptin 2020-0 Yes 100mg 100 mg, Un adali (JANUVIA) 03-24 Oral, ity of tablet 100 14:00: DAILY, [place] mg 00 First dose Medical on [facility] 03/24/21 at 0900, Until Discontinu ed, Routine omeprazole 2020-0 Yes 40mg 40 mg, Unive rs (PRILOSEC) 03-24 Oral, ity of capsule 40 14:00: DAILY, [place] mg 00 First dose Medical on [facility] 03/24/21 at 0900, Until Discontinu ed ascorbic 2020-0 Yes 500mg 500 mg, Unive rs acid 03-24 Oral, ity of (vitamin C) 14:00: DAILY, [place] (VITAMIN C) 00 First dose Me dical tablet 500 on [facility] mg 03/24/21 at 0900, Until Discontinu ed, Routine SITagliptin 2020-0 Yes 100mg 100 mg, Un adali (JANUVIA) 03-24 Oral, ity of tablet 100 14:00: DAILY, [place] mg 00 First dose Medical on [facility] 03/24/21 at 0900, Until Discontinu ed, Routine omeprazole Yes 40mg 40 mg, Unive rs (PRILOSEC) 03-24 Oral, ity of capsule 40 14:00: DAILY, [place] mg 00 First dose Medical on [facility] 03/24/21 at 0900, Until Discontinu ed ascorbic Yes 500mg 500 mg, Unive rs acid 03-24 Oral, ity of (vitamin C) 14:00: DAILY, [place] (VITAMIN C) 00 First dose Me dical tablet 500 on [facility] mg 03/24/21 at 0900, Until Discontinu ed, Routine amLODIPine 2020-2020- No 5mg 5 mg, Unive rs (NORVASC) 03-24 Oral, ity of tablet 5 mg 14:00: 15:14 DAILY, [place] 00 :12 First dose Medical on [facility] 03/24/21 at 0900, Until Discontinu ed, Routine amLODIPine 2020-0 2020- No 5mg 5 mg, Unive rs (NORVASC) 03-24 Oral, ity of tablet 5 mg 14:00: 15:14 DAILY, [place] 00 :12 First dose Medical on [facility] 03/24/21 at 0900, Until Discontinu ed, Routine gabapentin 2020-0 Yes 300mg 300 mg, Uni vers (NEURONTIN) 03-24 Oral, QHS, it y of capsule 300 02:00: First dose [place] mg [address] [facility] Medical 03/23/21 at Branch 2100, Until Discontinu ed, Routine atorvastati 2020-0 Yes 40mg 40 mg, Univ ers n (LIPITOR) 9-16 Oral, QHS, it y of tablet 40 02:00: First dose [place] mg 00 on Sun Medical 03/23/21 at Branch 2100, Until Discontinu ed, Routine gabapentin 2020-0 Yes 300mg 300 mg, Uni vers (NEURONTIN) 9-16 Oral, QHS, it y of capsule 300 02:00: First dose [place] mg 00 on Sun Medical 03/23/21 at Branch 2100, Until Discontinu ed, Routine atorvastati 2020-0 Yes 40mg 40 mg, Univ ers n (LIPITOR) 9-16 Oral, QHS, it y of tablet 40 02:00: First dose [place] mg 00 on Sun Medical 03/23/21 at Branch 2100, Until Discontinu ed, Routine pramipexole 2020-0 Yes 1mg 1 mg, Unive rs (MIRAPEX) 9-16 Oral, TID, ity of tablet 1 mg 01:00: First dose [place] 00 on Sun Medical 03/23/21 at Branch 2000, Until Discontinu ed
Facu lty member approving Restricted medication : JAD GAVIN apixaban 2020-0 Yes 5mg 5 mg, Univers (ELIQUIS) 9-16 Oral, BID, ity of tablet 5 mg 01:00: First dose [place] 00 on Sun Medical 03/23/21 at Branch 2000, Until Discontinu ed, Routine pramipexole 2020-0 Yes 1mg 1 mg, Unive rs (MIRAPEX) 9-16 Oral, TID, ity of tablet 1 mg 01:00: First dose [place] 00 on Sun [facility] 03/23/21 at Branch 2000, Until Discontinu ed
Facu lty member approving Restricted medication : JAD GAVIN apixaban 2020-0 Yes 5mg 5 mg, Univers (ELIQUIS) 9-16 Oral, BID, ity of tablet 5 mg 01:00: First dose [place] 00 on Sun Medical 03/23/21 at Branch 2000, Until Discontinu ed, Routine benzonatate 2020-0 Yes 100mg 100 mg, Un adali (TESSALON 9-15 Oral, Q6H, ity of PERLES) 23:00: First dose [place] capsule 100 00 on Sun Medica l mg 03/23/21 at Branch 1800, Until Discontinu ed, Routine benzonatate Yes 100mg 100 mg, Un adali (TESSALON 9-15 Oral, Q6H, ity of PERLES) 23:00: First dose [place] capsule 100 00 on Sun Medica l mg 03/23/21 at Branch 1800, Until Discontinu ed, Routine carvediloL Yes 25mg 25 mg, Unive rs (COREG) 9-15 Oral, BID ity of tablet 25 22:00: MEALS, [place] mg 00 First dose Medical on Sun Paicines 03/23/21 at 1700, Until Discontinu ed, Routine carvediloL Yes 25mg 25 mg, Unive rs (COREG) 9-15 Oral, BID ity of tablet 25 22:00: MEALS, [place] mg 00 First dose Medical on Sun Paicines 03/23/21 at 1700, Until Discontinu ed, Routine [...] Branch 1630, Until Discontinu ed, Routine glucagon Yes 1mg 1 mg, Univers (GLUCAGEN 03-23 Intramuscu ity of DIAGNOSTIC 19:48: [place], [place]N, [place] KIT) 01 Starting Medical injection 1 on Sun Paicines mg 03/23/21 at 1448, Until Discontinu ed, SELINA, Blood Glucose < or = 70 mg/dL and patient is unable to swallow or has mental changes. dextrose 50 Yes 25mL 25 mL, Univ ers % in water 15 Slow IV ity of (D50W) 19:48: Push, PRN, [place] injection 01 Starting Medica l 25 mL on Sun Branch 03/23/21 at 1448, Until Discontinu ed, SELINA, Blood Glucose < or = 70 mg/dL and patient is unable to swallow or has mental status changes. glucagon 2021-0 Yes 1mg 1 mg, Univers (GLUCAGEN 03-23 Intramuscu ity of DIAGNOSTIC 19:48: [place], PRN, [place] KIT) 01 Starting Medical injection 1 on Wed Branch mg 03/23/21 at 1448, Until Discontinu ed, SELINA, Blood Glucose < or = 70 mg/dL and patient is unable to swallow or has mental changes. dextrose 50 Yes 25mL 25 mL, Univ ers % in water 03-23 Slow IV ity of (D50W) 19:48: Push, PRN, [place] injection 01 Starting Medica l 25 mL on Wed Branch 03/23/21 at 1448, Until Discontinu ed, SELINA, Blood Glucose < or = 70 mg/dL and patient is unable to swallow or has mental status changes. iopamidol 2020- No [id number] 100mL 100 mL, Univers (ISOVUE 03-23 [id number] Intravenou it y of 370-500 mL) 17:00: 15:48 s, ONCE, 1 [place] injection 00 :00 dose, On Medica l 100 mL Wed Branch 03/23/21 at 1200, Routine iopamidol 2020- No [id number] 100mL 100 mL, Univers (ISOVUE 03-23 [id number] Intravenou it y of 370-500 mL) 17:00: [...] :12 Q24H, Medical First dose Branch on Sun03/23/21 at 1130, Until Discontinu ed, Routine insulin 2020- No 16U inject 16 Univ ers degludec -15 09-15 Units ity of (TRESIBA 15:06: 00:00 under the [place] as FLEXTOUCH 03 :00 skin. Medical U-100) 100 Branch unit/mL (3 mL) InPn insulin 0 202- No 16U inject 16 Univ ers degludec 15 09-15 Units ity of (TRESIBA 15:06: 00:00 under the [place] as FLEXTOUCH 03 :00 skin. Medical U-100) 100 Branch unit/mL (3 mL) InPn digoxin Yes 125ug 125 mcg, Unive rs (LANOXIN) 9-10 Oral, ity of tablet 125 14:00: QMON/WEDS/ [place] mcg 00 SUN, First Medical dose on Branch Sun03/18/21 at 0900, Until Discontinu ed, Routine digoxin Yes 125ug 125 mcg, Unive rs (LANOXIN) 9-10 Oral, ity of tablet 125 14:00: QMON/WEDS/ [place] mcg 00 SUN, First Medical dose on Branch Sun03/18/21 at [...] Administer over 20 Minutes, 50 mL insulin 0 Yes .3U/kg/ 29 Units Uni vers glargine 9-10 d (rounded ity of (LANTUS 02:00: from 28.8 [place] U-100) 00 Units = Medical injection 0.3 Branch 29 Units Units/kg/d ay ?96 kg), Subcutaneo us, QHS, First dose (after last modificati on) on [place] 03/17/21 at 2100, Until Discontinu ed, Routine insulin 0 Yes .3U/kg/ 29 Units Uni vers glargine 9-10 d (rounded ity of (LANTUS 02:00: from [...] Units ity of (TRESIBA 00:03: under the [facility] s FLEXTOUCH 37 skin. Medical U-100) 100 Branch unit/mL (3 mL) InPn SITagliptin 0 Yes 100mg Take 100 U nivers (JANUVIA) 9-10 mg by ity of 100 mg 00:03: mouth [place] tablet 37 daily. Medical Branch furosemide 0 Yes 40mg Take 40 mg U nivers (LASIX) 40 9-10 by mouth ity o f mg tablet 00:03: daily. [place] [address] Medical Branch amLODIPine 0 Yes 5mg Take 5 mg Un adali 5 mg tablet 9-10 by mouth ity of 00:03: daily. [place] [address] Medical Branch ascorbic 2020-0 Yes 500mg Take 500 Univ ers acid, 9-10 mg by ity of vitamin C, 00:03: mouth [place] (VITAMIN C) 37 daily. Medica l 500 mg Branch tablet insulin 0 Yes 16U inject 16 Unive rs degludec 9-10 Units ity of (TRESIBA 00:03: [facility] skin. Medical U-100) 100 Branch unit/mL (3 mL) InPn SITagliptin 0 Yes 100mg Take 100 U nivers (JANUVIA) 9-10 mg by ity of 100 mg 00:03: mouth [place] tablet 37 daily. Medical Branch furosemide 2020-0 Yes 40mg Take 40 mg U nivers (LASIX) 40 9-10 by mouth ity o f mg tablet 00:03: daily. [place] [address] Medical Branch amLODIPine 2020-0 Yes 5mg Take 5 mg Un adali 5 mg tablet 9-10 by mouth ity of 00:03: daily. [place] [address] Medical Branch ascorbic 2020-0 Yes 500mg Take 500 Univ ers acid, 9-10 mg by ity of vitamin C, 00:03: mouth [place] (VITAMIN C) 37 daily. Medica l 500 mg Branch tablet insulin 0 Yes 16U inject 16 Unive rs degludec 9-10 Units ity of (TRESIBA 00:03: under the [facility] FLEXTOUCH 37 skin. Medical U-100) 100 Branch unit/mL (3 mL) InPn SITagliptin 0 Yes 100mg Take 100 U nivers (JANUVIA) 9-10 mg by ity of 100 mg 00:03: mouth [place] tablet 37 daily. Medical Branch furosemide 0 Yes 40mg Take 40 mg U nivers (LASIX) 40 9-10 by mouth ity o f mg tablet 00:03: daily. [place] [address] [facility] Branch amLODIPine 2020-0 Yes 5mg Take 5 mg Un adali 5 mg tablet 9-10 by mouth ity of 00:03: daily. [place] [address] Medical Branch ascorbic 2020-0 Yes 500mg Take 500 Univ ers acid, 9-10 mg by ity of vitamin C, 00:03: mouth [place] (VITAMIN C) 37 daily. Medica l 500 mg Branch tablet insulin 2020-0 Yes 16U inject 16 Unive rs degludec 9-10 Units ity of (TRESIBA 00:03: [place] FLEXTOUCH 37 skin. Medical U-100) 100 Branch unit/mL (3 mL) InPn SITagliptin 2020-0 Yes 100mg Take 100 U nivers (JANUVIA) 9-10 mg by ity of 100 mg 00:03: mouth [place] tablet 37 daily. Medical Branch furosemide Yes 40mg Take 40 mg U nivers (LASIX) 40 9-10 by mouth ity o f mg tablet 00:03: daily. [address] amLODIPine Yes 5mg Take 5 mg Un adali 5 mg tablet 9-10 by mouth ity of 00:03: daily. [place] [address] Medical Paicines sulfur 2020- No [id number] 5mL 5 mL, [facility] ers hexafluorid 03-17 Intravenou i ty of e microsphr 21:45: 19:50 s, ONCE, 1 [place] (LUMASON) 00 :00 dose, [place] Medic al injection 5 03/17/21 at [facility] mL 1645, Routine
tribal council member approving Restricted medication : ZEKE ARELLANO sulfur 2020- No [id number] 5mL 5 mL, Univ ers hexafluorid 03-17 Intravenou i ty of e microsphr 21:45: 19:50 s, ONCE, 1 [place] (LUMASON) 00 :00 dose, [place] Medic al injection 5 03/17/21 at [facility] mL 1645, Routine
tribal council member approving Restricted medication : ZEKE ARELLANO remdesivir 2020- No 100mg 100 mg, IV Univers 100 mg in 03-17 Infusion, ity of NaCl 0.9% 21:00: 20:59 DAILY AT [facility] as (NS) 100 mL 00 :00 1600, 4 Medic al MINI-BAG doses, Branch First dose on Sun03/17/21 at 1600, Last dose on Sun03/20/21 at 1600, Administer over 60 Minutes, 100 mL
Is the patient mechanical ly ventilated ? NO
I s the patient requiring supplement al oxygen? YES remdesivir 2020- No 100mg 100 mg, IV Univers 100 mg in 03-17 Infusion, ity of NaCl 0.9% 21:00: 20:59 DAILY AT [facility] as (NS) 100 mL 00 :00 1600, 4 Medic al MINI-BAG doses, Branch First dose on [place] 03/17/21 at 1600, Last dose on 03/20/21 at 1600, Administer over 60 Minutes, 100 mL
Is the patient mechanical ly ventilated ? NO
I s the patient requiring supplement al oxygen? YES benzonatate 2021-0 Yes 100mg 100 mg, Un adali (TESSALON -09 Oral, Q6H, ity of PERLES) 17:00: [place] capsule [place] 00 (after Medica l mg last Branch modificati on) on [facility] 03/17/21 at 1200, Until Discontinu ed, Routine benzonatate 2021-0 Yes 100mg 100 mg, Un adali (TESSALON -09 Oral, Q6H, ity of PERLES) 17:00: [place] capsule 100 00 (after Medica l mg last Branch modificati on) on [facility] 03/17/21 at 1200, Until Discontinu ed, Routine omeprazole 202-0 Yes 40mg 40 mg, Unive rs (PRILOSEC) 03-17 Oral, ity of capsule 40 14:00: DAILY, [place] mg 00 First dose Medical on [facility] 03/17/21 at 0900, Until Discontinu ed, Routine amLODIPine 2020-0 Yes 5mg 5 mg, Univer s (NORVASC) 03-17 Oral, ity of tablet 5 mg 14:00: DAILY, [place] 00 First dose Medical on [place] [facility] 03/17/21 at 0900, Until Discontinu ed, Routine omeprazole 202-0 Yes 40mg 40 mg, Unive rs (PRILOSEC) 03-17 Oral, ity of capsule 40 14:00: DAILY, [place] mg 00 First dose Medical on [facility] 03/17/21 at 0900, Until Discontinu ed, Routine amLODIPine 2020-0 Yes 5mg 5 mg, Univer s (NORVASC) 03-17 Oral, ity of tablet 5 mg 14:00: DAILY, [place] 00 First dose Medical on [facility] 03/17/21 at 0900, Until Discontinu ed, Routine Sliding 2021-0 Yes Subcutaneo Univ ers Scale 03-17 us, TID ity of Insulin - 02:00: MEALS+HS, [place] as Lispro 00 First dose Medical (HumaLOG) + on Sun [facility] 03/16/21 at Testing 2100, Until Discontinu ed, Routine gabapentin Yes 300mg 300 mg, Uni vers (NEURONTIN) 9 Oral, QHS, it y of capsule 300 02:00: First dose [place] mg 00 on Sun03/16/21 at Paicines 2100, Until Discontinu ed, Routine atorvastati Yes 40mg 40 mg, Univ ers n (LIPITOR) 9 Oral, QHS, it y of tablet 40 02:00: First [place] mg 00 on Sun03/16/21 at Paicines 2100, Until Discontinu ed, Routine Sliding Yes Subcutaneo Univ ers Scale 03-17 us, TID ity of Insulin - 02:00: MEALS+HS, [place] as Lispro 00 First dose Medical (HumaLOG) + on Sun [facility] 03/16/21 at Testing 2100, Until Discontinu ed, Routine gabapentin Yes 300mg 300 mg, Uni vers (NEURONTIN) 03-17 Oral, QHS, it y of capsule 300 02:00: First dose [place] mg 00 on Sun [facility] 03/16/21 at Branch 2100, Until Discontinu ed, Routine atorvastati Yes 40mg 40 mg, Univ ers n (LIPITOR) 03-17 Oral, QHS, it y of tablet 40 02:00: First [place] mg 00 on Sun03/16/21 at Branch 2100, Until Discontinu ed, Routine insulin 2020- No .25U/kg 24 Units Un adali glargine 03-17d (0.25 ity of (LANTUS 02:00: 07:06 Units/kg/d [place] as U-100) 00 :55 ay ?96 Medical injection kg), Branch 24 Units Subcutaneo us, QHS, First dose on Sun03/16/21 at 2100, Until Discontinu ed, Routine insulin 2020- No .25U/kg 24 Units Un adali glargine 03-17d (0.25 ity of (LANTUS 02:00: 07:06 Units/kg/d [place] as U-100) 00 :55 ay ?96 Medical injection kg), Branch 24 Units Subcutaneo us, QHS, First dose on Sun03/16/21 at 2100, Until Discontinu ed, Routine apixaban 1-0 Yes 5mg 5 mg, Univers (ELIQUIS) 9 Oral, BID, ity of tablet 5 mg 01:00: First dose [place] 00 on Sun03/16/21 at Paicines 1999, Until Discontinu ed, Routine apixaban 1-0 Yes 5mg 5 mg, Univers (ELIQUIS) 03-17 Oral, BID, ity of tablet 5 mg 01:00: First dose 00 on Sun03/16/21 at Paicines 1999, Until Discontinu ed, Routine furosemide 2020-0 Yes 40mg 40 mg, Unive rs (LASIX) 03-17 Oral, ity of tablet 40 00:00: DAILY, [place] mg 00 First dose Medical (after Branch last modificati on) on Sun03/16/21 at 1900, Until Discontinu ed, Routine carvediloL 2020-0 Yes 25mg 25 mg, Unive rs (COREG) 03-17 Oral, BID ity of tablet 25 00:00: MEALS, [place] mg 00 First dose Medical (after Branch last modificati on) on Sun03/16/21 at 1900, Until Discontinu ed, Routine furosemide 2020-0 Yes 40mg 40 mg, Unive rs (LASIX) 03-17 Oral, ity of tablet 40 00:00: DAILY, [place] mg 00 First dose Medical (after Branch last modificati on) on Sun03/16/21 at 1900, Until Discontinu ed, Routine carvediloL 1-0 Yes 25mg 25 mg, Unive rs (COREG) 03-17 Oral, BID ity of tablet 25 00:00: MEALS, [place] mg 00 First dose Medical (after Branch last modificati on) on Sun03/16/21 at 1900, Until Discontinu ed, Routine benzonatate 2020-0 2020- No [id number] 100mg Take 1 Univers 100 mg - 10-10 capsule by ity of capsule 00:00: 04:59 mouth [place] 00 :00 every 6 Medical (six) Branch hours for 30 days. benzonatate 2020-0 1- No [id number] 100mg Take 1 Univers 100 mg - 10-10 capsule by ity of capsule 00:00: 04:59 mouth [place] 00 :00 every 6 Medical (six) Branch hours for 30 days. benzonatate 2021- No [id number] 100mg Take 1 Univers 100 mg 9-09 10-10 capsule by ity of capsule 00:00: 04:59 mouth [place] 00 :00 every 6 Medical (six) Branch hours for 30 days. benzonatate 2021- No [id number] 100mg Take 1 Univers 100 mg 9-09 10-10 capsule by ity of capsule 00:00: 04:59 mouth [place] 00 :00 every 6 Medical (six) Branch hours for 30 days. benzonatate 2021- No [id number] 100mg Take 1 Univers 100 mg 9-09 10-10 capsule by ity of capsule 00:00: 04:59 mouth [place] 00 :00 every 6 Medical (six) Branch hours for 30 days. benzonatate 2021- No [id number] 100mg Take 1 Univers 100 mg 9-09 10-10 capsule by ity of capsule 00:00: 04:59 mouth [place] 00 :00 every 6 Medical (six) Branch hours for 30 days. benzonatate 2020- No [id number] 100mg Take 1 Univers 100 mg 9-09 10-10 capsule by ity of capsule 00:00: 04:59 mouth [place] 00 :00 every 6 Medical (six) Branch hours for 30 days. benzonatate 2021- No [id number] 100mg Take 1 Univers 100 mg 9-09 10-10 capsule by ity of capsule 00:00: 04:59 mouth [place] 00 :00 every 6 Medical (six) Branch hours for 30 days. benzonatate 1- No [id number] 100mg Take 1 Univers 100 mg 9-09 [...] 25 mL, Univ ers % in water 908 Slow IV ity of (D50W) 23:51: Push, [...] 25 mL, Univ ers % in water 08 Slow IV ity of (D50W) 23:51: Push, PRN, [place] injection 06 Starting Medica l 25 mL Sun03/16/21 Branch at 1851, Until Discontinu ed, SELINA, Blood Glucose < or = 70 mg/dL and patient is unable to swallow or has mental status changes. ipratropium Yes 2{puff} 2 Puff, Univers (ATROVENT 03-16 Inhalation ity of HFA) 23:15: , Q6H, [place] inhaler 2 00 First dose Medi micky Puff on Sun Branch 03/16/21 at 1815, Until Discontinu ed, Routine
Is this order for a patient with suspected or confirmed COVID-19 infection? Yes albuterol Yes 2{puff} 2 Puff, Un adali (VENTOLIN) 03-16 Inhalation ity of inhaler 2 23:15: , Q6H, [place] Puff 00 First dose Medical on Sun Branch 03/16/21 at 1815, Until Discontinu ed, Routine ipratropium Yes 2{puff} 2 Puff, Univers (ATROVENT 08 Inhalation ity of HFA) 23:15: , Q6H, [place] inhaler 2 00 First dose Medi micky Puff on Sun Branch 03/16/21 at 1815, Until Discontinu ed, Routine
Is this order for a patient with suspected or confirmed COVID-19 infection? Yes albuterol Yes 2{puff} 2 Puff, Un adali (VENTOLIN) 03-16 Inhalation ity of inhaler 2 23:15: , Q6H, [place] Puff 00 First dose Medical on Sun Branch 03/16/21 at 1815, Until Discontinu ed, Routine benzonatate 2020- No 100mg 100 mg, U nivers (TESSALON 03-16 Oral, ity of PERLES) 23:13: 16:35 Q6HPRN, [place] capsule 100 02 :04 Starting Medi micky mg 03/16/21 Branch at 1813, Until [place] 03/17/21 at 1135, Routine, Cough benzonatate 2020-2020- No 100mg 100 mg, U nivers (TESSALON 03-16 Oral, ity of PERLES) 23:13: 16:35 Q6HPRN, [place] capsule 100 02 :04 Starting Medi micky mg 03/16/21 Branch at 1813, Until [place] 03/17/21 at 1135, Routine, Cough acetaminoph 2020-0 Yes 650mg 650 mg, Un adali en 03-16 Oral, ity of (TYLENOL) 23:08: Q6HPRN, [place] tablet 650 16 Starting Medic al mg 03/16/21 Branch at 1808, Until Discontinu ed, Routine, Pain (scale 1-3) acetaminoph 2020-0 Yes 650mg 650 mg, Un adali en 03-16 Oral, ity of (TYLENOL) 23:08: Q6HPRN, [place] tablet 650 16 Starting Medic al mg 03/16/21 Branch at 1808, Until Discontinu ed, Routine, Pain (scale 1-3) dexamethaso 2020-2020- No 10mg 10 mg, IV Univers ne 03-16 Push, ity of (DECADRON 16:15: 15:53 ONCE, 1 [place] PHOSPHATE) 00 :00 dose, Wed Medi micky injection 03/16/21 at Bran h 10 mg 1115, STAT dexamethaso 2020-0 2020- No 10mg 10 mg, IV Univers ne 03-16 09-08 Push, ity of (DECADRON 16:15: 15:53 ONCE, 1 [place] PHOSPHATE[place] 00 :00 dose, Wed Medi micky injection 03/16/21 at Branc h [...] Units ity of (TRESIBA 20:23: under the [facility] FLEXTOUCH 02 skin. Medical U-100) 100 Branch unit/mL (3 mL) InPn ascorbic 2018-07 Yes 500mg Take 500 Univ ers acid, 2-23 mg by ity of vitamin C, 20:23: mouth [place] (VITAMIN C) 02 daily. Medica l 500 mg Branch tablet insulin 2018-07 Yes 16U inject 16 Unive rs degludec 2-23 Units ity of (TRESIBA 20:23: under the [facility] FLEXTOUCH 02 skin. Medical U-100) 100 Branch unit/mL (3 mL) InPn ascorbic 2018-07 Yes 500mg Take 500 Univ ers acid, 2-23 mg by ity of vitamin C, 20:23: mouth [place] (VITAMIN C) 02 daily. Medica l 500 mg Branch tablet insulin 2018-07 Yes 16U inject 16 Unive rs degludec 2-23 Units ity of (TRESIBA 20:23: under the [facility] FLEXTOUCH 02 skin. Medical U-100) 100 Branch unit/mL (3 mL) In ascorbic 2018-07 Yes 500mg Take 500 Univ ers acid, 2-23 mg by ity of vitamin C, 20:23: mouth [place] (VITAMIN C) 02 daily. Medica l 500 mg Branch tablet insulin 2018-07 Yes 16U inject 16 Unive rs degludec 2-23 Units ity of (TRESIBA 20:23: under the [facility] FLEXTOUCH 02 skin. Medical U-100) 100 Branch unit/mL (3 mL) In ascorbic 2018-07 Yes 500mg Take 500 Univ ers acid, 2-23 mg by ity of vitamin C, 20:23: mouth [place] (VITAMIN C) 02 daily. Medica l 500 mg Branch tablet insulin 2018-07 Yes 16U inject 16 Unive rs degludec 2-23 Units ity of (TRESIBA 20:23: under the [facility] FLEXTOUCH 02 skin. Medical U-100) 100 Branch unit/mL (3 mL) In ascorbic 2018-07 Yes 500mg Take 500 Univ [...] Medical U-100) 100 Branch unit/mL (3 mL) In ascorbic 2018-07 Yes 500mg Take 500 Univ [...] Medical U-100) 100 Branch unit/mL (3 mL) In ascorbic 2018-07 Yes 500mg Take 500 Univ [...] mg Branch tablet traMADol 50 2018-07 Yes [id number] 50mg Take 1 Univers mg tablet 2-23 tablet by ity o f 00:00: mouth [place] 00 every 6 Medical (six) Branch hours as needed for Pain (scale 4-6) or Pain (scale 7-10). traMADol 50 2018-07 Yes [id number] 50mg Take 1 Univers mg tablet 2-23 tablet by ity o f 00:00: mouth [place] 00 every 6 Medical (six) Branch hours as needed for Pain (scale 4-6) or Pain (scale 7-10). triamcinolo 2018-07 Yes [id number] Apply to Univers ne 2-23 area(s) 2 ity of acetonide 00:00: (two) [place] 0.1 % cream 00 times Medical daily. Branch traMADol 50 2018-07 Yes [id number] 50mg Take 1 Univers mg tablet 2-23 tablet by ity o f 00:00: mouth [place] 00 every 6 Medical (six) Branch hours as needed for Pain (scale 4-6) or Pain (scale 7-10). traMADol 50 2018-07 Yes [id number] 50mg Take 1 Univers mg tablet 2-23 tablet by ity o f 00:00: mouth [place] 00 every 6 Medical (six) Branch hours as needed for Pain (scale 4-6) or Pain (scale 7-10). traMADol 50 2018-07 Yes [id number] 50mg Take 1 Univers mg tablet 2-23 tablet by ity o f 00:00: mouth [place] 00 every 6 Medical (six) Branch hours as needed for Pain (scale 4-6) or Pain (scale 7-10). triamcinolo 2018-07 Yes [id number] Apply to Univers ne 2-23 area(s) 2 ity of acetonide 00:00: (two) [place] 0.1 % cream 00 times Medical daily. Branch traMADol 50 2018-07 Yes [id number] 50mg Take 1 Univers mg tablet 2-23 tablet by ity o f 00:00: mouth [place] 00 every 6 Medical (six) Branch hours as needed for Pain (scale 4-6) or Pain (scale 7-10). traMADol 50 2018-07 Yes [id number] 50mg Take 1 Univers mg tablet 2-23 tablet by ity o f 00:00: mouth [place] 00 every 6 Medical (six) Branch hours as needed for Pain (scale 4-6) or Pain (scale 7-10). triamcinnikhil 2018-07 Yes [id number] Apply to Univers ne 2-23 area(s) 2 ity of acetonide 00:00: (two) [place] 0.1 % cream 00 times Medical daily. Branch triamcinolo 2018-07 Yes [id number] Apply to Univers ne 2-23 area(s) 2 ity of acetonide 00:00: (two) [place] 0.1 % cream 00 times Medical daily. Branch traMADol 50 2018-07 Yes [id number] 50mg Take 1 Univers mg tablet 2-23 tablet by ity o f 00:00: mouth [place] 00 every 6 Medical (six) Branch hours as needed for Pain (scale 4-6) or Pain (scale 7-10). triamcinnikhil 2018-07 Yes [id number] Apply to Univers ne 2-23 area(s) 2 ity of acetonide 00:00: (two) [place] 0.1 % cream 00 times Medical daily. Branch traMADol 50 2018-07 Yes [id number] 50mg Take 1 Univers mg tablet 2-23 tablet by ity o f 00:00: mouth [place] 00 every 6 Medical (six) Branch hours as needed for Pain (scale 4-6) or Pain (scale 7-10). joselitoamcinnikhil 2018-07 Yes [id number] Apply to Univers ne 2-23 area(s) 2 ity of acetonide 00:00: (two) [place] 0.1 % cream 00 times Medical daily. Branch traMADol 50 2018-07 Yes [id number] 50mg Take 1 Univers mg tablet 2-23 tablet by ity o f 00:00: mouth [place] 00 every 6 Medical (six) Branch hours as needed for Pain (scale 4-6) or Pain (scale 7-10). joselitoammera 2018-07 Yes [id number] Apply to [facility] ne 2-23 area(s) 2 ity of acetonide 00:00: (two) [place] 0.1 % cream 00 times Medical daily. Branch traMADol 50 2018-07 Yes [id number] 50mg Take 1 Univers mg tablet 2-23 tablet by ity o f 00:00: mouth [place] 00 every 6 Medical (six) Branch hours as needed for Pain (scale 4-6) or Pain (scale 7-10). fely 2018-07 Yes [id number] Apply to [facility] ne 2-23 area(s) 2 ity of acetonide 00:00: (two) [place] 0.1 % cream 00 times Medical daily. Branch traMADol 50 2018-07 Yes [id number] 50mg Take 1 Univers mg tablet 2-23 tablet by ity o f 00:00: mouth [place] 00 every 6 Medical (six) Branch hours as needed for Pain (scale 4-6) or Pain (scale 7-10). triamcinnikhil 2018-07 Yes [id number] Apply to Univers ne 2-23 area(s) 2 ity of acetonide 00:00: (two) [place] 0.1 % cream 00 times Medical daily. Branch traMADol 50 2018-07 Yes [id number] 50mg Take 1 Univers mg tablet 2-23 tablet by ity o f 00:00: mouth [place] 00 every 6 Medical (six) Branch hours as needed for Pain (scale 4-6) or Pain (scale 7-10). triamcinolo 2018-07 Yes [id number] Apply to [facility] 2-23 area(s) 2 ity of acetonide 00:00: (two) [place] 0.1 % cream 00 times Medical daily. Branch traMADol 50 2018-07 Yes [id number] 50mg Take 1 Univers mg tablet 2-23 tablet by ity o f 00:00: mouth [place] 00 every 6 Medical (six) Branch hours as needed for Pain (scale 4-6) or Pain (scale 7-10). triamcinolo 2018-07 Yes [id number] Apply to [facility] 2-23 area(s) 2 ity of acetonide 00:00: (two) [place] 0.1 % cream 00 times Medical daily. Branch traMADol 50 2018-07 Yes [id number] 50mg Take 1 Univers mg tablet 2-23 tablet by ity o f 00:00: mouth [place] 00 every 6 Medical (six) Branch hours as needed for Pain (scale 4-6) or Pain (scale 7-10). triamcinolo 2018-07 Yes [id number] Apply to [facility] 2-23 area(s) 2 ity of acetonide 00:00: (two) [place] 0.1 % cream 00 times Medical daily. Branch traMADol 50 2018-07 Yes [id number] 50mg Take 1 Univers mg tablet 2-23 tablet by ity o f 00:00: mouth [place] 00 every 6 Medical (six) Branch hours as needed for Pain (scale 4-6) or Pain (scale 7-10). triamcinolo 2018-07 Yes [id number] Apply to [facility] 2-23 area(s) 2 ity of acetonide 00:00: (two) [place] 0.1 % cream 00 times Medical daily. Branch traMADol 50 2018-07 Yes [id number] 50mg Take 1 Univers mg tablet 2-23 tablet by ity o f 00:00: mouth [place] 00 every 6 Medical (six) Branch hours as needed for Pain (scale 4-6) or Pain (scale 7-10). traMADol 50 2018-07 Yes [id number] 50mg Take 1 Univers mg tablet 2-23 tablet by ity o f 00:00: mouth [place] 00 every 6 Medical (six) Branch hours as needed for Pain (scale 4-6) or Pain (scale 7-10). joselitoamcinnikhil 2018-07 Yes [id number] Apply to Univers ne 2-23 area(s) 2 ity of acetonide 00:00: (two) [place] 0.1 % cream 00 times Medical daily. Branch triamcinolo 2018-07 Yes [id number] Apply to Univers ne 2-23 area(s) 2 ity of acetonide 00:00: (two) [place] 0.1 % cream 00 times Medical daily. Branch traMADol 50 2018-07 Yes [id number] 50mg Take 1 Univers mg tablet 2-23 tablet by ity o f 00:00: mouth [place] 00 every 6 Medical (six) Branch hours as needed for Pain (scale 4-6) or Pain (scale 7-10). [facility] Yes [id number] Apply to [facility] ne 2-23 area(s) 2 ity of acetonide 00:00: (two) [place] 0.1 % cream 00 times Medical daily. Branch traMADol 50 2018-07 Yes [id number] 50mg Take 1 Univers mg tablet 2-23 tablet by ity o f 00:00: mouth [place] 00 every 6 Medical (six) Branch hours as needed for Pain (scale 4-6) or Pain (scale 7-10). [facility] 2018-07 Yes [id number] Apply to [facility] ne 2-23 area(s) 2 ity of acetonide 00:00: (two) [place] 0.1 % cream 00 times Medical daily. Branch traMADol 50 2018-07 Yes [id number] 50mg Take 1 Univers mg tablet 2-23 tablet by ity o f 00:00: mouth [place] 00 every 6 Medical (six) Branch hours as needed for Pain (scale 4-6) or Pain (scale 7-10). traMADol 50 2018-07- No [id number] 50mg Take 1 Univers mg tablet 2-23 09-15 tablet by ity of 00:00: 00:00 mouth [place] 00 :00 every 6 Medical (six) Branch hours as needed for Pain (scale 4-6) or Pain (scale 7-10). traMADol 50 2018-07- No [id number] 50mg Take 1 Univers mg tablet 2-23 09-15 tablet by ity of 00:00: 00:00 mouth [place] 00 :00 every 6 Medical (six) Branch hours as needed for Pain (scale 4-6) or Pain (scale 7-10). triamcinolo 2018-07- No [id number] Apply to [facility] 08-31 area(s) 2 ity of acetonide 00:00: 00:00 (two) [place] 0.1 % cream 00 :00 times Medical daily. Branch triamcinolo 2018-07- No [id number] Apply to [facility] 08-31 area(s) 2 ity of acetonide 00:00: 00:00 (two) [place] 0.1 % cream 00 :00 times Medical daily. Branch CALCIUM Yes 1{tbl} Take 1 Univer s CARBONATE/V 9-10 tablet by ity of ITAMIN D3 22:55: mouth. [place] (CALCIUM 56 Medical 600 + D,3, Branch ORAL) ascorbic Yes 500mg Take 500 Univ ers acid, 9-10 mg by ity of vitamin C, 22:55: mouth [place] (VITAMIN C) 56 daily. Medica l 500 mg Branch tablet CALCIUM Yes 1{tbl} Take 1 Univer s CARBONATE/V 9-10 tablet by ity of ITAMIN D3 22:55: mouth. [place] (CALCIUM 56 Medical 600 + D,3, Branch ORAL) ascorbic Yes 500mg Take 500 Univ ers acid, 9-10 mg by ity of vitamin C, 22:55: mouth [place] (VITAMIN C) 56 daily. Medica l 500 mg Branch tablet omeprazole 2019- No 40mg Take 40 mg Univers 40 mg 03-1810 by mouth ity of capsule 18:46: 00:00 daily. [place] 42 :00 Medical Branch Fluticasone 2019- No 1{puff} Inhale 1 Univers Propionate -04 16-10 Puff as ity o f 100 18:46: 00:00 needed for [place] mcg/actuati 42 :00 Other Medical on (Seasonal Branch inhalation Allergies) disk . nepafenac 2019- No 1[drp] Place 1 Un adali (ILEVRO) 03-18-10 Drop in ity of 0.3 % DrpS 18:46: 00:00 each eye [place] 42 :00 daily. Medical Branch digoxin 125 2018-0 Yes [id number] 125ug Take 1 Univers mcg tablet 9-10 9103 tablet by ity of 00:00: mouth [place] 00 daily. Medical Branch rOPINIRole 2018-0 Yes [id number] 2mg Take 1 Univers 2 mg tablet 9-10 9103 tablet by ity of 00:00: mouth 2 (two) Medical times Branch daily. apixaban 2018- Yes [id number] 5mg Take 1 Univers (ELIQUIS) 5 9-10 9103 tablet by ity of mg tablet 00:00: mouth 2 (two) Medical times Branch daily. atorvastati 2018- Yes [id number] 40mg Take 1 Univers n (LIPITOR) 9-10 9103 tablet by ity of 40 mg 00:00: mouth at [place] tablet 00 bedtime. Medical Branch gabapentin 2018- Yes [id number] 300mg Take 1 Univers 300 mg 9-10 9100 capsule by ity of capsule 00:00: mouth 2 (two) Medical times Branch daily. omeprazole 2018-0 Yes [id number] 40mg Take 1 Univers 40 mg 9-10 9100 capsule by ity of capsule 00:00: mouth [place] 00 daily. Medical Branch carvedilol 2018- Yes [id number] 25mg Take 1 Univers 25 mg 9-10 9103 tablet by ity of tablet 00:00: mouth 2 (two) Medical times Branch daily with meals. digoxin 125 2018- Yes [id number] 125ug Take 1 Univers mcg tablet 9-10 9103 tablet by ity of 00:00: mouth [place] 00 daily. Medical Branch rOPINIRole Yes [id number] 2mg Take 1 Univers 2 mg tablet 9-10 9103 tablet by ity of 00:00: mouth 2 (two) Medical times Branch daily. apixaban 2018- Yes [id number] 5mg Take 1 Univers (ELIQUIS) 5 9-10 9103 tablet by ity of mg tablet 00:00: mouth 2 (two) Medical times Branch daily. atorvastati Yes [id number] 40mg Take 1 Univers n (LIPITOR) 9-10 9103 tablet by ity of 40 mg 00:00: mouth at [place] tablet 00 bedtime. Medical Branch gabapentin 2019-0 Yes [id number] 300mg Take 1 Univers 300 mg 9-10 9100 capsule by ity of capsule 00:00: mouth 2 [place] 00 (two) Medical times Branch daily. omeprazole 2019-0 Yes [id number] 40mg Take 1 Univers 40 mg 9-10 9100 capsule by ity of capsule 00:00: mouth [place] 00 daily. Medical Branch carvedilol 2019-0 Yes [id number] 25mg Take 1 [facility] 25 mg 9-10 9103 tablet by ity of tablet 00:00: mouth 2 [place] 00 (two) Medical times Branch daily with meals. digoxin 125 2019-0 Yes [id number] 125ug Take 1 Univers mcg tablet 9-10 9103 tablet by ity of 00:00: mouth [place] 00 daily. Medical Branch rOPINIRole 2018-0 Yes [id number] 2mg Take 1 Univers 2 mg tablet 9-10 9103 tablet by ity of 00:00: mouth 2 (two) Medical times Branch daily. apixaban 2018-0 Yes [id number] 5mg Take 1 Univers (ELIQUIS) 5 9-10 9103 tablet by ity of mg tablet 00:00: mouth 2 (two) Medical times Branch daily. atorvastati 2019-0 Yes [id number] 40mg Take 1 Univers n (LIPITOR) 9-10 9103 tablet by ity of 40 mg 00:00: mouth at [place] tablet 00 bedtime. Medical Branch gabapentin 2018-0 Yes [id number] 300mg Take 1 Univers 300 mg 9-10 9100 capsule by ity of capsule 00:00: mouth 2 (two) Medical times Branch daily. omeprazole 2019-0 Yes [id number] 40mg Take 1 Univers 40 mg 9-10 9100 capsule by ity of capsule 00:00: mouth [place] 00 daily. Medical Branch carvedilol 2019-0 Yes [id number] 25mg Take 1 [facility] 25 mg 9-10 9103 tablet by ity of tablet 00:00: mouth 2 (two) [facility] times [facility] daily with meals. digoxin 125 2019-0 Yes [id number] 125ug Take 1 [facility] mcg tablet 9-10 9103 tablet by [facility] 00:00: mouth [place] 00 daily. [facility] rOPINIRole 2018-0 Yes [id number] 2mg Take 1 [facility] 2 mg tablet 9-10 9103 tablet by [facility] of 00:00: mouth 2 (two) [facility] times [facility] daily. apixaban 2019-0 Yes [id number] 5mg Take 1 [facility] (ELIQUIS) 5 9-10 9103 tablet by [facility] of mg tablet 00:00: mouth 2 (two) [facility] times [facility] daily. atorvastati 2019-0 Yes [id number] 40mg Take 1 [facility] n (LIPITOR) 9-10 9103 tablet by [facility] of 40 mg 00:00: mouth at [place] tablet 00 bedtime. [facility] gabapentin 2019-0 Yes [id number] 300mg Take 1 [facility] 300 mg 9-10 9100 capsule by [facility] capsule 00:00: mouth 2 (two) [facility] times [facility] daily. omeprazole 2019-0 Yes [id number] 40mg Take 1 [facility] 40 mg 9-10 9100 capsule by [facility] capsule 00:00: mouth [place] 00 daily. [facility] carvedilol 2019-0 Yes [id number] 25mg Take 1 [facility] 25 mg 9-10 9103 tablet by [facility] tablet 00:00: mouth 2 (two) Medical times [facility] daily with meals. digoxin 125 2019-0 Yes [id number] 125ug Take 1 [facility] mcg tablet 9-10 9103 tablet by [facility] of 00:00: mouth [place] 00 daily. [facility] rOPINIRole 2019-0 Yes [id number] 2mg Take 1 [facility] 2 mg tablet 9-10 9103 tablet by [facility] of 00:00: mouth 2 (two) Medical times [facility] daily. apixaban 2019-0 Yes [id number] 5mg Take 1 [facility] (ELIQUIS) 5 9-10 9103 tablet by [facility] of mg tablet 00:00: mouth 2 (two) Medical times [facility] daily. atorvastati 2019-0 Yes [id number] 40mg Take 1 [facility] n (LIPITOR) 9-10 9103 tablet by [facility] of 40 mg 00:00: mouth at [place] tablet 00 bedtime. [facility] gabapentin 2019-0 Yes [id number] 300mg Take 1 [facility] 300 mg 9-10 9100 capsule by [facility] capsule 00:00: mouth 2 (two) [facility] times [facility] daily. omeprazole 2019-0 Yes [id number] 40mg Take 1 [facility] 40 mg 9-10 9100 capsule by [facility] capsule 00:00: mouth [place] 00 daily. [facility] carvedilol 2019-0 Yes [id number] 25mg Take 1 [facility] 25 mg 9-10 9103 tablet by [facility] tablet 00:00: mouth 2 [place] 00 (two) Medical times [facility] daily with meals. digoxin 125 2019-0 Yes [id number] 125ug Take 1 [facility] mcg tablet 9-10 9103 tablet by [facility] of 00:00: mouth [place] 00 daily. [facility] rOPINIRole 2019-0 Yes [id number] 2mg Take 1 [facility] 2 mg tablet 9-10 9103 tablet by [facility] 00:00: mouth 2 00 (two) Medical times [facility] daily. apixaban 2019-0 Yes [id number] 5mg Take 1 [facility] (ELIQUIS) 5 9-10 9103 tablet by [facility] of mg tablet 00:00: mouth 2 (two) Medical times [facility] daily. atorvastati 2019-0 Yes [id number] 40mg Take 1 [facility] n (LIPITOR) 9-10 9103 tablet by [facility] of 40 mg 00:00: mouth at [place] tablet 00 bedtime. [facility] gabapentin 2019-0 Yes [id number] 300mg Take 1 [facility] 300 mg 9-10 9100 capsule by [facility] capsule 00:00: mouth 2 00 (two) Medical times [facility] daily. omeprazole 2019-0 Yes [id number] 40mg Take 1 [facility] 40 mg 9-10 9100 capsule by [facility] capsule 00:00: mouth [place] 00 daily. [facility] carvedilol 2019-0 Yes [id number] 25mg Take 1 [facility] 25 mg 9-10 9103 tablet by [facility] tablet 00:00: mouth 2 00 (two) Medical times [facility] daily with meals. digoxin 125 2019-0 Yes [id number] 125ug Take 1 [facility] mcg tablet 9-10 9103 tablet by [facility] of 00:00: mouth [place] 00 daily. [facility] rOPINIRole 2019-0 Yes [id number] 2mg Take 1 [facility] 2 mg tablet 9-10 9103 tablet by [facility] of 00:00: mouth 2 [place] 00 (two) Medical times [facility] daily. apixaban 2019-0 Yes [id number] 5mg Take 1 [facility] (ELIQUIS) 5 9-10 9103 tablet by [facility] of mg tablet 00:00: mouth 2 [place] 00 (two) Medical times [facility] daily. atorvastati 2019-0 Yes [id number] 40mg Take 1 [facility] n (LIPITOR) 9-10 9103 tablet by [facility] of 40 mg 00:00: mouth at [place] tablet 00 bedtime. [facility] gabapentin 2019-0 Yes [id number] 300mg Take 1 [facility] 300 mg 9-10 9100 capsule by [facility] capsule 00:00: mouth 2 00 (two) Medical times [facility] daily. omeprazole 2019-0 Yes [id number] 40mg Take 1 [facility] 40 mg 9-10 9100 capsule by [facility] capsule 00:00: mouth [place] 00 daily. [facility] carvedilol 2019-0 Yes [id number] 25mg Take 1 [facility] 25 mg 9-10 9103 tablet by [facility] tablet 00:00: mouth 2 (two) Medical times [facility] daily with meals. digoxin 125 2019-0 Yes [id number] 125ug Take 1 [facility] mcg tablet 9-10 9103 tablet by [facility] of 00:00: mouth [place] 00 daily. [facility] rOPINIRole 2018-0 Yes [id number] 2mg Take 1 [facility] 2 mg tablet 9-10 9103 tablet by [facility] of 00:00: mouth 2 (two) Medical times [facility] daily. apixaban 2019-0 Yes [id number] 5mg Take 1 [facility] (ELIQUIS) 5 9-10 9103 tablet by [facility] of mg tablet 00:00: mouth 2 (two) Medical times [facility] daily. atorvastati 2019-0 Yes [id number] 40mg Take 1 [facility] n (LIPITOR) 9-10 9103 tablet by [facility] of 40 mg 00:00: mouth at [place] tablet 00 bedtime. [facility] gabapentin 2019-0 Yes [id number] 300mg Take 1 [facility] 300 mg 9-10 9100 capsule by [facility] capsule 00:00: mouth 2 (two) Medical times [facility] daily. omeprazole 2019-0 Yes [id number] 40mg Take 1 [facility] 40 mg 9-10 9100 capsule by [facility] of capsule 00:00: mouth [place] 00 daily. [facility] carvedilol 2019-0 Yes [id number] 25mg Take 1 [facility] 25 mg 9-10 9103 tablet by [facility] tablet 00:00: mouth 2 (two) Medical times [facility] daily with meals. digoxin 125 2018-0 Yes [id number] 125ug Take 1 [facility] mcg tablet 9-10 9103 tablet by [facility] of 00:00: mouth [place] 00 daily. [facility] furosemide 2019-0 Yes [id number] 40mg Take 1 [facility] 40 mg 9-10 9103 tablet by [facility] of tablet 00:00: mouth [place] 00 daily. [facility] insulin 2019-0 Yes [id number] 10U inject 10 [facility] glargine 9-10 9103 Units [facility] of 100 unit/mL 00:00: under the [place] injection 00 skin every [facility] 12 Branch (twelve) hours. rOPINIRole 2019- Yes [id number] 2mg Take 1 [facility] 2 mg tablet 9-10 9103 tablet by [facility] of 00:00: mouth 2 [place] 00 (two) Medical times Branch daily. apixaban 2019-0 Yes [id number] 5mg Take 1 [facility] (ELIQUIS) 5 9-10 9103 tablet by [facility] of mg tablet 00:00: mouth 2 [place] 00 (two) Medical times Branch daily. atorvastati 2019- Yes [id number] 40mg Take 1 [facility] n (LIPITOR) 9-10 9103 tablet by [facility] of 40 mg 00:00: mouth at [place] tablet 00 bedtime. [facility] gabapentin 2019-0 Yes [id number] 300mg Take 1 [facility] 300 mg 9-10 9100 capsule by [facility] of capsule 00:00: mouth 2 [place] 00 (two) Medical times [facility] daily. omeprazole 2019-0 Yes [id number] 40mg Take 1 [facility] 40 mg 9-10 9100 capsule by [facility] of capsule 00:00: mouth [place] 00 daily. [facility] carvedilol 2019-0 Yes [id number] 25mg Take 1 [facility] 25 mg 9-10 9103 tablet by [facility] of tablet 00:00: mouth 2 [place] 00 (two) Medical times Branch daily with meals. apixaban 2019-0 Yes [id number] 5mg Take 1 [facility] (ELIQUIS) 5 9-10 9103 tablet by [facility] of mg tablet 00:00: mouth 2 [place] 00 (two) Medical times Branch daily. atorvastati 2019-0 Yes [id number] 40mg Take 1 [facility] n (LIPITOR) 9-10 9103 tablet by [facility] of 40 mg 00:00: mouth at [place] tablet 00 bedtime. [facility] digoxin 125 2019-0 Yes [id number] 125ug Take 1 [facility] mcg tablet 9-10 9103 tablet by [facility] of 00:00: mouth [place] 00 daily. [facility] gabapentin 2019-0 Yes [id number] 300mg Take 1 [facility] 300 mg 9-10 9100 capsule by [facility] of capsule 00:00: mouth 2 [place] 00 (two) Medical times [facility] daily. omeprazole 2019-0 Yes [id number] 40mg Take 1 [facility] 40 mg 9-10 9100 capsule by [facility] of capsule 00:00: mouth [place] 00 daily. [facility] carvedilol 2019-0 Yes [id number] 25mg Take 1 [facility] 25 mg 9-10 9103 tablet by [facility] of tablet 00:00: mouth 2 00 (two) Medical times [facility] daily with meals. digoxin 125 2018-0 Yes [id number] 125ug Take 1 [facility] mcg tablet 9-10 9103 tablet by [facility] of 00:00: mouth [place] 00 daily. [facility] furosemide 2019-0 Yes [id number] 40mg Take 1 [facility] 40 mg 9-10 9103 tablet by [facility] of tablet 00:00: mouth [place] 00 daily. [facility] insulin 2018-0 Yes [id number] 10U inject 10 [facility] glargine 9-10 9103 Units [facility] of 100 unit/mL 00:00: under the [place] injection 00 skin every [facility] 12 Branch (twelve) hours. rOPINIRole 2019-0 Yes [id number] 2mg Take 1 [facility] 2 mg tablet 9-10 9103 tablet by [facility] of 00:00: mouth 2 00 (two) Medical times Branch daily. rOPINIRole 2019-0 Yes [id number] 2mg Take 1 [facility] 2 mg tablet 9-10 9103 tablet by [facility] of 00:00: mouth 2 [place] 00 (two) Medical times Branch daily. apixaban 2019-0 Yes [id number] 5mg Take 1 [facility] (ELIQUIS) 5 9-10 9103 tablet by ity of mg tablet 00:00: mouth 2 [place] 00 (two) Medical times Branch daily. atorvastati 2019-0 Yes [id number] 40mg Take 1 [facility] n (LIPITOR) 9-10 9103 tablet by it[facility] of 40 mg 00:00: mouth at [place] tablet 00 bedtime. Medical [facility] gabapentin 2019-0 Yes [id number] 300mg Take 1 [facility] 300 mg 9-10 9100 capsule by [facility] of capsule 00:00: mouth 2 (two) Medical times Branch daily. omeprazole 2019-0 Yes [id number] 40mg Take 1 [facility] 40 mg 9-10 9100 capsule by [facility] of capsule 00:00: mouth [place] 00 daily. Medical [facility] carvedilol 2019-0 Yes [id number] 25mg Take 1 [facility] 25 mg 9-10 9103 tablet by [facility] of tablet 00:00: mouth 2 (two) Medical times Branch daily with meals. digoxin 125 2019-0 Yes [id number] 125ug Take 1 [facility] mcg tablet 9-10 9103 tablet by ity of 00:00: mouth [place] 00 daily. [facility] rOPINIRole 2018-0 Yes [id number] 2mg Take 1 [facility] 2 mg tablet 9-10 9103 tablet by ity of 00:00: mouth 2 (two) Medical times Branch daily. apixaban 2019-0 Yes [id number] 5mg Take 1 [facility] (ELIQUIS) 5 9-10 9103 tablet by it[facility] of mg tablet 00:00: mouth (two) Medical times Branch daily. atorvastati 2018-0 Yes [id number] 40mg Take 1 [facility] n (LIPITOR) 9-10 9103 tablet by ity of 40 mg 00:00: mouth at [place] tablet 00 bedtime. Medical Branch gabapentin 2019-0 Yes [id number] 300mg Take 1 [facility] 300 mg 9-10 9100 capsule by [facility] of capsule 00:00: mouth (two) Medical times Branch daily. omeprazole 2019-0 Yes [id number] 40mg Take 1 [facility] 40 mg 9-10 9100 capsule by it[facility] of capsule 00:00: mouth [place] 00 daily. Medical Branch carvedilol 2018-0 Yes [id number] 25mg Take 1 [facility] 25 mg 9-10 9103 tablet by [facility] of tablet 00:00: mouth 2 (two) Medical times Branch daily with meals. digoxin 125 2018-0 Yes [id number] 125ug Take 1 [facility] mcg tablet 9-10 9103 tablet by ity of 00:00: mouth [place] 00 daily. Medical [facility] rOPINIRole 2018-0 Yes [id number] 2mg Take 1 [facility] 2 mg tablet 9-10 9103 tablet by ity of 00:00: mouth 2 [place] 00 (two) Medical times Branch daily. apixaban 2019-0 Yes [id number] 5mg Take 1 [facility] (ELIQUIS) 5 9-10 9103 tablet by ity of mg tablet 00:00: mouth 2 (two) Medical times Branch daily. atorvastati 2019-0 Yes [id number] 40mg Take 1 [facility] n (LIPITOR) 9-10 9103 tablet by ity of 40 mg 00:00: mouth at [place] tablet 00 bedtime. Medical Branch gabapentin 2019-0 Yes [id number] 300mg Take 1 [facility] 300 mg 9-10 9100 capsule by ity of capsule 00:00: mouth 2 (two) Medical times Branch daily. omeprazole 2019-0 Yes [id number] 40mg Take 1 [facility] 40 mg 9-10 9100 capsule by ity of capsule 00:00: mouth [place] 00 daily. [facility] Branch carvedilol 2018-0 Yes [id number] 25mg Take 1 [facility] 25 mg 9-10 9103 tablet by [facility] of tablet 00:00: mouth 2 (two) Medical times Branch daily with meals. digoxin 125 2019-0 Yes [id number] 125ug Take 1 [facility] mcg tablet 9-10 9103 tablet by ity of 00:00: mouth [place] 00 daily. Medical Branch rOPINIRole 2018-0 Yes [id number] 2mg Take 1 [facility] 2 mg tablet 9-10 9103 tablet by ity of 00:00: mouth 2 (two) Medical times Branch daily. apixaban 2019-0 Yes [id number] 5mg Take 1 [facility] (ELIQUIS) 5 9-10 9103 tablet by ity of mg tablet 00:00: mouth 2 (two) Medical times Branch daily. atorvastati 2019-0 Yes [id number] 40mg Take 1 [facility] n (LIPITOR) 9-10 9103 tablet by ity of 40 mg 00:00: mouth at [place] tablet 00 bedtime. Medical Branch gabapentin 2019-0 Yes [id number] 300mg Take 1 [facility] 300 mg 9-10 9100 capsule by ity of capsule 00:00: mouth 2 (two) Medical times Branch daily. omeprazole 2019-0 Yes [id number] 40mg Take 1 [facility] 40 mg 9-10 9100 capsule by ity of capsule 00:00: mouth [place] 00 daily. Medical Branch carvedilol 2019-0 Yes [id number] 25mg Take 1 [facility] 25 mg 9-10 9103 tablet by [facility]y of tablet 00:00: mouth 2 (two) Medical times Branch daily with meals. digoxin 125 2018-0 Yes [id number] 125ug Take 1 [facility] mcg tablet 9-10 9103 tablet by ity of 00:00: mouth [place] 00 daily. Medical Branch rOPINIRole 2018- Yes [id number] 2mg Take 1 [facility] 2 mg tablet 9-10 9103 tablet by ity of 00:00: mouth 2 (two) Medical times Branch daily. apixaban 2019- Yes [id number] 5mg Take 1 [facility] (ELIQUIS) 5 9-10 9103 tablet by ity of mg tablet 00:00: mouth 2 (two) Medical times Branch daily. atorvastati Yes [id number] 40mg Take 1 [facility] n (LIPITOR) 9-10 9103 tablet by ity of 40 mg 00:00: mouth at [place] tablet 00 bedtime. Medical Branch gabapentin 2018-0 Yes [id number] 300mg Take 1 [facility] 300 mg 9-10 9100 capsule by ity of capsule 00:00: mouth 2 (two) Medical times Branch daily. omeprazole 2019-0 Yes [id number] 40mg Take 1 [facility] 40 mg 9-10 9100 capsule by ity of capsule 00:00: mouth [place] 00 daily. Medical Branch carvedilol Yes [id number] 25mg Take 1 [facility] 25 mg 9-10 9103 tablet by ity of tablet 00:00: mouth 2 (two) Medical times Branch daily with meals. digoxin 125 2018- Yes [id number] 125ug Take 1 [facility] mcg tablet 9-10 9103 tablet by ity of 00:00: mouth [place] 00 daily. Medical Branch rOPINIRole 2018-0 Yes [id number] 2mg Take 1 [facility] 2 mg tablet 9-10 9103 tablet by ity of 00:00: mouth 2 (two) Medical times Branch daily. apixaban 2019-0 Yes [id number] 5mg Take 1 [facility] (ELIQUIS) 5 9-10 9103 tablet by ity of mg tablet 00:00: mouth 2 (two) Medical times Branch daily. atorvastati 2019-0 Yes [id number] 40mg Take 1 [facility] n (LIPITOR) 9-10 9103 tablet by ity of 40 mg 00:00: mouth at [place] tablet 00 bedtime. Medical Branch gabapentin 2019-0 Yes [id number] 300mg Take 1 [facility] 300 mg 9-10 9100 capsule by ity of capsule 00:00: mouth 2 [place] 00 (two) Medical times Branch daily. omeprazole 2019-0 Yes [id number] 40mg Take 1 [facility] 40 mg 9-10 9100 capsule by ity of capsule 00:00: mouth [place] 00 daily. Medical Branch carvedilol 2019-0 Yes [id number] 25mg Take 1 [facility] 25 mg 9-10 9103 tablet by ity of tablet 00:00: mouth 2 (two) Medical times Branch daily with meals. digoxin 125 2019-0 Yes [id number] 125ug Take 1 [facility] mcg tablet 9-10 9103 tablet by ity of 00:00: mouth [place] 00 daily. Medical Branch rOPINIRole 2019-0 Yes [id number] 2mg Take 1 [facility] 2 mg tablet 9-10 9103 tablet by ity of 00:00: mouth 2 (two) Medical times Branch daily. apixaban 2019-0 Yes [id number] 5mg Take 1 [facility] (ELIQUIS) 5 9-10 9103 tablet by ity of mg tablet 00:00: mouth 2 (two) Medical times Branch daily. atorvastati 2019-0 Yes [id number] 40mg Take 1 [facility] n (LIPITOR) 9-10 9103 tablet by ity of 40 mg 00:00: mouth at [place] tablet 00 bedtime. Medical Branch gabapentin 2019-0 Yes [id number] 300mg Take 1 [facility] 300 mg 9-10 9100 capsule by ity of capsule 00:00: mouth 2 00 (two) Medical times Branch daily. omeprazole 2019-0 Yes [id number] 40mg Take 1 [facility] 40 mg 9-10 9100 capsule by ity of capsule 00:00: mouth [place] 00 daily. Medical Branch carvedilol 2019-0 Yes [id number] 25mg Take 1 [facility] 25 mg 9-10 9103 tablet by ity of tablet 00:00: mouth 2 00 (two) Medical times Branch daily with meals. digoxin 125 2019-0 Yes [id number] 125ug Take 1 [facility] mcg tablet 9-10 9103 tablet by ity of 00:00: mouth [place] 00 daily. Medical Branch rOPINIRole 2019-0 Yes [id number] 2mg Take 1 [facility] 2 mg tablet 9-10 9103 tablet by ity of 00:00: mouth 2 [place] (two) Medical times Branch daily. apixaban 2019-0 Yes [id number] 5mg Take 1 [facility] (ELIQUIS) 5 9-10 9103 tablet by ity of mg tablet 00:00: mouth 2 [place] (two) Medical times Branch daily. apixaban 2019-0 Yes [id number] 5mg Take 1 [facility] (ELIQUIS) 5 9-10 9103 tablet by ity of mg tablet 00:00: mouth 2 00 (two) Medical times Branch daily. atorvastati 2019-0 Yes [id number] 40mg Take 1 [facility] n (LIPITOR) 9-10 9103 tablet by ity of 40 mg 00:00: mouth at [place] tablet 00 bedtime. Medical Branch gabapentin 2019-0 Yes [id number] 300mg Take 1 [facility] 300 mg 9-10 9100 capsule by ity of capsule 00:00: mouth 2 (two) Medical times Branch daily. omeprazole 2019-0 Yes [id number] 40mg Take 1 [facility] 40 mg 9-10 9100 capsule by ity of capsule 00:00: mouth [place] 00 daily. Medical Branch carvedilol 2019-0 Yes [id number] 25mg Take 1 [facility] 25 mg 9-10 9103 tablet by [facility]y of tablet 00:00: mouth 2 (two) Medical times Branch daily with meals. digoxin 125 2019-0 Yes [id number] 125ug Take 1 [facility] mcg tablet 9-10 9103 tablet by ity of 00:00: mouth [place] 00 daily. Medical Branch rOPINIRole 2019-0 Yes [id number] 2mg Take 1 [facility] 2 mg tablet 9-10 9103 tablet by ity of 00:00: mouth 2 [place] 00 (two) Medical times Branch daily. atorvastati 2019-0 Yes [id number] 40mg Take 1 [facility] n (LIPITOR) 9-10 9103 tablet by ity of 40 mg 00:00: mouth at [place] tablet 00 bedtime. Medical Branch apixaban 2019-0 Yes [id number] 5mg Take 1 [facility] (ELIQUIS) 5 9-10 9103 tablet by ity of mg tablet 00:00: mouth 2 (two) Medical times Branch daily. atorvastati 2019-0 Yes [id number] 40mg Take 1 [facility] n (LIPITOR) 9-10 9103 tablet by ity of 40 mg 00:00: mouth at [place] tablet 00 bedtime. Medical Branch gabapentin 2019-0 Yes [id number] 300mg Take 1 [facility] 300 mg 9-10 9100 capsule by ity of capsule 00:00: mouth 2 (two) Medical times Branch daily. gabapentin 2019-0 Yes [id number] 300mg Take 1 [facility] 300 mg 9-10 9100 capsule by [facility]y of capsule 00:00: mouth 2 (two) Medical times Branch daily. omeprazole 2019-0 Yes [id number] 40mg Take 1 [facility] 40 mg 9-10 9100 capsule by ity of capsule 00:00: mouth [place] 00 daily. Medical Branch carvedilol 2019-0 Yes [id number] 25mg Take 1 [facility] 25 mg 9-10 9103 tablet by [facility]y of tablet 00:00: mouth (two) Medical times Branch daily with meals. digoxin 125 2019-0 Yes [id number] 125ug Take 1 [facility] mcg tablet 9-10 9103 tablet by ity of 00:00: mouth [place] 00 daily. Medical Branch rOPINIRole 2019-0 Yes [id number] 2mg Take 1 [facility] 2 mg tablet 9-10 9103 tablet by ity of 00:00: mouth 2 (two) Medical times Branch daily. omeprazole 2019-0 Yes [id number] 40mg Take 1 [facility] 40 mg 9-10 9100 capsule by ity of capsule 00:00: mouth [place] 00 daily. Medical Branch apixaban 2019-0 Yes [id number] 5mg Take 1 [facility] (ELIQUIS) 5 9-10 9103 tablet by ity of mg tablet 00:00: mouth 2 (two) Medical times Branch daily. atorvastati 2019-0 Yes [id number] 40mg Take 1 [facility] n (LIPITOR) 9-10 9103 tablet by ity of 40 mg 00:00: mouth at [place] tablet 00 bedtime. Medical Branch gabapentin 2019-0 Yes [id number] 300mg Take 1 [facility] 300 mg 9-10 9100 capsule by ity of capsule 00:00: mouth 2 (two) Medical times Branch daily. omeprazole 2019-0 Yes [id number] 40mg Take 1 [facility] 40 mg 9-10 9100 capsule by ity of capsule 00:00: mouth [place] 00 daily. Medical Branch carvedilol 2019-0 Yes [id number] 25mg Take 1 [facility] 25 mg 9-10 9103 tablet by [facility]y of tablet 00:00: mouth 2 00 (two) Medical times Branch daily with meals. carvedilol 2019-0 Yes [id number] 25mg Take 1 [facility] 25 mg 9-10 9103 tablet by [facility] of tablet 00:00: mouth 2 00 (two) Medical times Branch daily with meals. digoxin 125 2019-0 Yes [id number] 125ug Take 1 [facility] mcg tablet 9-10 9103 tablet by ity of 00:00: mouth [place] 00 daily. Medical Branch rOPINIRole 2018-0 Yes [id number] 2mg Take 1 [facility] 2 mg tablet 9-10 9103 tablet by ity of 00:00: mouth 2 00 (two) Medical times Branch daily. digoxin 125 2018-0 Yes [id number] 125ug Take 1 [facility] mcg tablet 9-10 9103 tablet by ity of 00:00: mouth [place] 00 daily. Medical Branch apixaban 2018-0 Yes [id number] 5mg Take 1 [facility] (ELIQUIS) 5 9-10 9103 tablet by ity of mg tablet 00:00: mouth 2 (two) Medical times Branch daily. atorvastati 2018-0 Yes [id number] 40mg Take 1 [facility] n (LIPITOR) 9-10 9103 tablet by ity of 40 mg 00:00: mouth at [place] tablet 00 bedtime. Medical Branch gabapentin 2019-0 Yes [id number] 300mg Take 1 [facility] 300 mg 9-10 9100 capsule by [facility]y of capsule 00:00: mouth 2 00 (two) Medical times Branch daily. omeprazole 2019-0 Yes [id number] 40mg Take 1 [facility] 40 mg 9-10 9100 capsule by ity of capsule 00:00: mouth [place] 00 daily. Medical Branch carvedilol 2018-0 Yes [id number] 25mg Take 1 [facility] 25 mg 9-10 9103 tablet by [facility] of tablet 00:00: mouth 2 00 (two) Medical times Branch daily with meals. digoxin 125 2018-0 Yes [id number] 125ug Take 1 [facility] mcg tablet 9-10 9103 tablet by ity of 00:00: mouth [place] 00 daily. Medical Branch rOPINIRole 2018-0 Yes [id number] 2mg Take 1 [facility] 2 mg tablet 9-10 9103 tablet by ity of 00:00: mouth 2 (two) Medical times Branch daily. rOPINIRole 2019-0 Yes [id number] 2mg Take 1 [facility] 2 mg tablet 9-10 9103 tablet by ity of 00:00: mouth 2 (two) Medical times Branch daily. apixaban 2019-0 Yes [id number] 5mg Take 1 [facility] (ELIQUIS) 5 9-10 9103 tablet by ity of mg tablet 00:00: mouth 2 (two) Medical times Branch daily. atorvastati 20190 Yes [id number] 40mg Take 1 [facility] n (LIPITOR) 9-10 9103 tablet by ity of 40 mg 00:00: mouth at [place] tablet 00 bedtime. Medical Branch gabapentin 2018-0 Yes [id number] 300mg Take 1 [facility] 300 mg 9-10 9100 capsule by [facility]y of capsule 00:00: mouth 2 (two) Medical times Branch daily. omeprazole 2019-0 Yes [id number] 40mg Take 1 [facility] 40 mg 9-10 9100 capsule by [facility]y of capsule 00:00: mouth [place] 00 daily. Medical Branch carvedilol 2018-0 Yes [id number] 25mg Take 1 [facility] 25 mg 9-10 9103 tablet by [facility] of tablet 00:00: mouth 2 (two) Medical times Branch daily with meals. digoxin 125 2018-0 Yes [id number] 125ug Take 1 [facility] mcg tablet 9-10 9103 tablet by ity of 00:00: mouth [place] 00 daily. Medical Branch rOPINIRole 2018-0 Yes [id number] 2mg Take 1 [facility] 2 mg tablet 9-10 9103 tablet by ity of 00:00: mouth 2 (two) Medical times Branch daily. apixaban 2019-0 Yes [id number] 5mg Take 1 [facility] (ELIQUIS) 5 9-10 9103 tablet by ity of mg tablet 00:00: mouth 2 (two) Medical times Branch daily. atorvastati 2018-0 Yes [id number] 40mg Take 1 [facility] n (LIPITOR) 9-10 9103 tablet by ity of 40 mg 00:00: mouth at [place] tablet 00 bedtime. Medical Branch gabapentin 2019-0 Yes [id number] 300mg Take 1 [facility] 300 mg 9-10 9100 capsule by ity of capsule 00:00: mouth 2 [place] 00 (two) Medical times Branch daily. omeprazole 2019-0 Yes [id number] 40mg Take 1 [facility] 40 mg 9-10 9100 capsule by ity of capsule 00:00: mouth [place] 00 daily. [facility] Branch carvedilol 2019-0 Yes [id number] 25mg Take 1 [facility] 25 mg 9-10 9103 tablet by [facility] of tablet 00:00: mouth 2 00 (two) Medical times Branch daily with meals. digoxin 125 2019-0 Yes [id number] 125ug Take 1 [facility] mcg tablet 9-10 9103 tablet by ity of 00:00: mouth [place] 00 daily. [facility] rOPINIRole 2019-0 Yes [id number] 2mg Take 1 [facility] 2 mg tablet 9-10 9103 tablet by [facility]y of 00:00: mouth 2 (two) Medical times Branch daily. apixaban 2019-0 Yes [id number] 5mg Take 1 [facility] (ELIQUIS) 5 9-10 9103 tablet by ity of mg tablet 00:00: mouth 2 (two) Medical times Branch daily. atorvastati 2019-0 Yes [id number] 40mg Take 1 [facility] n (LIPITOR) 9-10 9103 tablet by ity of 40 mg 00:00: mouth at [place] tablet 00 bedtime. [facility] Branch gabapentin 2019-0 Yes [id number] 300mg Take 1 [facility] 300 mg 9-10 9100 capsule by [facility] of capsule 00:00: mouth 2 00 (two) Medical times Branch daily. omeprazole 2019-0 Yes [id number] 40mg Take 1 [facility] 40 mg 9-10 9100 capsule by [facility] of capsule 00:00: mouth [place] 00 daily. [facility] carvedilol 2019-0 Yes [id number] 25mg Take 1 [facility] 25 mg 9-10 9103 tablet by [facility] of tablet 00:00: mouth 2 00 (two) Medical times Branch daily with meals. digoxin 125 2019-0 Yes [id number] 125ug Take 1 [facility] mcg tablet 9-10 9103 tablet by ity of 00:00: mouth [place] 00 daily. [facility] Branch rOPINIRole 2019-0 Yes [id number] 2mg Take 1 [facility] 2 mg tablet 9-10 9103 tablet by [facility] of 00:00: mouth 2 (two) Medical times Branch daily. apixaban 2019-0 Yes [id number] 5mg Take 1 [facility] (ELIQUIS) 5 9-10 9103 tablet by [facility] of mg tablet 00:00: mouth 2 00 (two) Medical times Branch daily. atorvastati 2019-0 Yes [id number] 40mg Take 1 [facility] n (LIPITOR) 9-10 9103 tablet by ity of 40 mg 00:00: mouth at [place] tablet 00 bedtime. Medical Branch gabapentin 2019-0 Yes [id number] 300mg Take 1 [facility] 300 mg 9-10 9100 capsule by ity of capsule 00:00: mouth 2 (two) Medical times Branch daily. omeprazole 2019-0 Yes [id number] 40mg Take 1 [facility] 40 mg 9-10 9100 capsule by ity of capsule 00:00: mouth 00 daily. Medical Branch carvedilol 2018-0 Yes [id number] 25mg Take 1 [facility] 25 mg 9-10 9103 tablet by ity of tablet 00:00: mouth 2 (two) Medical times Branch daily with meals. digoxin 125 2019-0 Yes [id number] 125ug Take 1 [facility] mcg tablet 9-10 9103 tablet by ity of 00:00: mouth [place] 00 daily. Medical Branch rOPINIRole 2018-0 Yes [id number] 2mg Take 1 [facility] 2 mg tablet 9-10 9103 tablet by ity of 00:00: mouth 2 (two) Medical times Branch daily. apixaban 2019-0 Yes [id number] 5mg Take 1 [facility] (ELIQUIS) 5 9-10 9103 tablet by ity of mg tablet 00:00: mouth 2 00 (two) Medical times Branch daily. atorvastati 2019-0 Yes [id number] 40mg Take 1 Univers n (LIPITOR) 9-10 9103 tablet by ity of 40 mg 00:00: mouth at [place] tablet 00 bedtime. Medical Branch apixaban 2019-0 Yes [id number] 5mg Take 1 [facility] (ELIQUIS) 5 9-10 9103 tablet by ity of mg tablet 00:00: mouth 2 [place] 00 (two) Medical times Branch daily. atorvastati 2019-0 Yes [id number] 40mg Take 1 [facility] n (LIPITOR) 9-10 9103 tablet by ity of 40 mg 00:00: mouth at [place] tablet 00 bedtime. Medical Branch gabapentin 2019-0 Yes [id number] 300mg Take 1 [facility] 300 mg 9-10 9100 capsule by ity of capsule 00:00: mouth 2 (two) Medical times Branch daily. omeprazole 2019-0 Yes [id number] 40mg Take 1 [facility] 40 mg 9-10 9100 capsule by ity of capsule 00:00: mouth [place] 00 daily. Medical Branch carvedilol 2019-0 Yes [id number] 25mg Take 1 [facility] 25 mg 9-10 9103 tablet by ity of tablet 00:00: mouth (two) Medical times Branch daily with meals. gabapentin 2019-0 Yes [id number] 300mg Take 1 [facility] 300 mg 9-10 9100 capsule by ity of capsule 00:00: mouth (two) Medical times Branch daily. digoxin 125 2019-0 Yes [id number] 125ug Take 1 [facility] mcg tablet 9-10 9103 tablet by ity of 00:00: mouth [place] 00 daily. Medical Branch rOPINIRole 2019-0 Yes [id number] 2mg Take 1 [facility] 2 mg tablet 9-10 9103 tablet by ity of 00:00: mouth (two) Medical times Branch daily. omeprazole 2019-0 Yes [id number] 40mg Take 1 [facility] 40 mg 9-10 9100 capsule by ity of capsule 00:00: mouth [place] 00 daily. Medical Branch apixaban 2019-0 Yes [id number] 5mg Take 1 [facility] (ELIQUIS) 5 9-10 9103 tablet by ity of mg tablet 00:00: mouth 2 (two) Medical times Branch daily. atorvastati 2019-0 Yes [id number] 40mg Take 1 [facility] n (LIPITOR) 9-10 9103 tablet by ity of 40 mg 00:00: mouth at [place] tablet 00 bedtime. Medical Branch gabapentin 2019-0 Yes [id number] 300mg Take 1 [facility] 300 mg 9-10 9100 capsule by ity of capsule 00:00: mouth 2 (two) Medical times Branch daily. omeprazole 2019-0 Yes [id number] 40mg Take 1 [facility] 40 mg 9-10 9100 capsule by ity of capsule 00:00: mouth [place] 00 daily. Medical Branch carvedilol 2019-0 Yes [id number] 25mg Take 1 [facility] 25 mg 9-10 9103 tablet by ity of tablet 00:00: mouth 2 00 (two) Medical times Branch daily with meals. digoxin 125 2019-0 Yes [id number] 125ug Take 1 [facility] mcg tablet 9-10 9103 tablet by ity of 00:00: mouth [place] 00 daily. Medical Branch carvedilol 2019-0 Yes [id number] 25mg Take 1 [facility] 25 mg 9-10 9103 tablet by ity of tablet 00:00: mouth 2 (two) Medical times Branch daily with meals. rOPINIRole 2019-0 Yes [id number] 2mg Take 1 [facility] 2 mg tablet 9-10 9103 tablet by ity of 00:00: mouth 2 (two) Medical times Branch daily. digoxin 125 2019-0 Yes [id number] 125ug Take 1 [facility] mcg tablet 9-10 9103 tablet by ity of 00:00: mouth [place] 00 daily. Medical Branch rOPINIRole 2019-0 Yes [id number] 2mg Take 1 [facility] 2 mg tablet 9-10 9103 tablet by ity of 00:00: mouth 2 (two) Medical times Branch daily. apixaban 2019-0 Yes [id number] 5mg Take 1 [facility] (ELIQUIS) 5 9-10 9103 tablet by ity of mg tablet 00:00: mouth 2 (two) Medical times Branch daily. atorvastati 2019-0 Yes [id number] 40mg Take 1 Univers n (LIPITOR) 9-10 9103 tablet by ity of 40 mg 00:00: mouth at [place] tablet 00 bedtime. Medical Branch gabapentin 2019-0 Yes [id number] 300mg Take 1 [facility] 300 mg 9-10 9100 capsule by ity of capsule 00:00: mouth 2 00 (two) Medical times Branch daily. omeprazole 2019-0 Yes [id number] 40mg Take 1 [facility] 40 mg 9-10 9100 capsule by ity of capsule 00:00: mouth [place] 00 daily. Medical Branch carvedilol 2019-0 Yes [id number] 25mg Take 1 [facility] 25 mg 9-10 9103 tablet by ity of tablet 00:00: mouth 2 [place] 00 (two) Medical times Branch daily with meals. aztreonam 1 2019- No [id number] 500mg Infuse 500 [facility] gram 03-18 9100 mg every 8 ity of injection 00:00: 04:59 (eight) [place] 00 :[place] hours for Medical 7 days. Branch aztreonam 1 2019- No [id number] 500mg Infuse 500 [facility] gram 03-18 9100 mg every 8 ity of injection 00:00: 04:59 (eight) [place] 00 :[place] hours for Medical 7 days. Branch fluticasone Yes 1{spray 1 [place], [facility] propionate 03-17 } Nasal, ity of 50 14:00: DAILY, [place] mcg/actuati 00 First dose Me dical on nasal on Mon Branch spray 1 03/17/19 at [place] 0900, Until Discontinu ed, Routine Polyethylen Yes 17g 17 g, Unive rs e Glycol 03-17 Oral, ity of 3350 02:00: DAILY, [place] (MIRALAX) 00 First dose Medi micky powder 17 g on Sun Branch 03/16/19 at 2100, Until Discontinu ed, Routine phenol Yes 1{spray 1 [place], Univ ers (SORE 03-16 } Oral, PRN, ity of THROAT 22:22: Starting [place] (PHENOL)) 21 [place] 03/16/19 Medi micky 1.4 % spray at 1722, Bran ch bottle 1 Until [place] Discontinu ed, Routine, Oral mucositis insulin 2018- Yes 12U 12 Units, Unive rs glargine -08 Subcutaneo ity o f (LANTUS 02:00: us, [facility], [place] U-100) 00 First dose Medical injection on Sat Branch 12 Units 03/15/19 at 2100, Until Discontinu ed, Routine insulin 2018- Yes 5U 5 Units, Univer s glargine -07 Subcutaneo ity o f (LANTUS 14:00: us, DAILY, [place] U-100) 00 First dose Medical injection 5 on Sat Branch Units 03/15/19 at 0900, Until Discontinu ed, Routine ketorolac 2019- No 30mg 30 mg, Unive rs (TORADOL) 03-13 Slow IV ity of injection 21:15: 21:15 Push, [place] 30 mg 00 :00 ONCE, 1 Medical dose, [facility] 03/13/19 at 1615, Routine
tribal council member approving Restricted medication : ELKINSCHUCKY diphenhydrA 2019-0 Yes 25mg 25 mg, Univ ers MINE 03-13 Oral, ity of (BENADRYL) 21:12: Q4HPRN, [place] tablet 25 04 Starting Medica l mg [facility] 03/13/19 Branch at 1612, Until Discontinu ed, Routine, Itching, Mild Rash diphenhydrA 2019-0 2019- No 25mg 25 mg, Uni vers MINE 03-13 Oral, ity of (BENADRYL) 10:09: 10:12 ONCE, 1 [place] as tablet 25 00 :00 dose, [facility] Medic al mg 03/13/19 at Branch 0515, Routine atorvastati 2019-0 Yes 40mg 40 mg, Univ ers n (LIPITOR) 03-12 Oral, QHS, it y of tablet 40 02:00: First dose [place] mg 00 on [facility] 03/11/19 at Branch 2100, Until Discontinu ed, Routine digoxin 2019-0 Yes 125ug 125 mcg, Unive rs (LANOXIN) 03-11 Oral, ity of tablet 125 14:00: DAILY, [place] mcg 00 First dose Medical on [facility] 03/11/19 at 0900, Until Discontinu ed, Routine omeprazole 2019-0 Yes 40mg 40 mg, Unive rs (PRILOSEC) 03-11 Oral, ity of capsule 40 14:00: DAILY, [place] mg 00 First dose Medical on [facility] 03/11/19 at 0900, Until Discontinu ed furosemide 2019-0 Yes 40mg 40 mg, Unive rs (LASIX) 03-11 Oral, ity of tablet 40 14:00: DAILY, [place] mg 00 First dose Medical on [facility] 03/11/19 at 0900, Until Discontinu ed, Routine carvedilol 2019-0 Yes 25mg 25 mg, Unive rs (COREG) 03-11 Oral, BID ity of tablet 25 13:00: MEALS, [place] mg 00 First dose Medical on [facility] 03/11/19 at 0800, Until Discontinu ed, Routine apixaban 2019- Yes 5mg 5 mg, Univers (ELIQUIS) 03-11 Oral, BID, ity of tablet 5 mg 13:00: First dose on [facility] 03/11/19 at Branch 0800, Until Discontinu ed, Routine levalbutero 2019- No .63mg 0.63 mg, Univers l (XOPENEX) 03-11 Inhalation i ty of nebulizer 13:00: 15:44 , QID, [place] solution 00 :19 First dose Medic al 0.63 mg on [facility] 03/11/19 at 0800, Until Discontinu ed, Routine
Approved by: [employer] PROVIDER fluticasone 2019- No 1{puff} 1 Puff, Univers propionate 03-11 Inhalation it y of (FLOVENT 13:00: 15:43 , Q12H, [place] HFA) 44 00 :54 First dose Medica l mcg/actuati on [facility] on inhaler 03/11/19 at 1 Puff 0800, Until Discontinu ed Sliding Yes Subcutaneo Univ ers Scale 03-11 us, AC+HS, ity of Insulin-Reg 12:30: First dose [place] ular + Fsbg 00 on [facility] Medica l Testing 03/11/19 at Branch 0730, Until Discontinu ed, Routine pramipexole Yes 2mg 2 mg, Unive rs (MIRAPEX) 03-11 Oral, BID, ity of tablet 2 mg 07:00: First dose on [facility] 03/11/19 at Branch 0200, Until Discontinu ed
Facu lty member approving Restricted medication : TAINA CASTRO aztreonam 2019-0 Yes 500mg 500 mg, IV U nivers (AZACTAM) 03-11 Piggyback, ity of 500 mg in 04:15: Q8H ABX, [place] s NaCl 0.9% 00 First dose Medi micky (NS) 50 mL on Sun IV 03/10/19 at Piggyback 2315, Until Discontinu ed, 50 mL
Reas on for Anti-Infec tive: Empiric Therapy for Suspected Infection< br>Empiric Therapy Site: Urine
D uration of therapy: 7 days insulin 2018-0 2019- No 15U 15 Units, [facility] ers glargine 03-11 09-07 Subcutaneo ity [...] 04:00: First dose [place] mg 00 on Mon Medical 03/10/19 at Branch 2300, Until Discontinu ed, Routine dextrose Yes 250mL 250 mL, IV Un adali 10% (D10W) 03-11 Infusion, ity of bolus 03:23: PRN - SEE [place] infusion 42 INSTRUCTIO Medic al 250 mL NS, blood Branch glucose < 60, Starting Sun03/10/19 at 2223
Dextrose 10% 250 mL bag [...] to swallow or has mental changes. ondansetron Yes 4mg 4 mg, Slow Univers (ZOFRAN 03-11 IV Push, ity of (PF)) 03:14: Q6HPRN, [place] injection 4 56 Starting Medi micky mg Sun03/10/19 Branch at 2214, Until Discontinu ed, Routine, Nausea and Vomiting (N/V) acetaminoph 2018- Yes 650mg 650 mg, Un adali en 03-11 Oral, ity of (TYLENOL) 03:14: Q6HPRN, [place] tablet 650 44 Starting Medic al mg Sun03/10/19 Branch at 2214, Until Discontinu ed, Routine, Pain (scale 1-3) CYANOCOBALA 2019- No Take by Chaz reinoso MIN, 03-11 mouth. ity of VITAMIN 03:12: 00:00 [place] B-12, 48 :00 Medical (VITAMIN Branch B-12 ORAL) Diflupredna 2019- No 1[drp] Place 1 Univers te 03-11 Drop in ity of (DUREZOL) 03:12: 00:00 each eye 4 [place] 0.05 % Drop 48 :00 (four) Medica l times Branch daily. traMADol 2019- Yes 50mg 50 mg, Univers (ULTRAM) 03-11 Oral, ity of tablet 50 03:12: BIDPRN, [place] mg 37 Starting Medical 03/10/19 Branch at 2212, Until Discontinu ed, Routine, Pain (scale 4-6), Pain (scale 7-10) meclizine 2018- Yes 25mg 25 mg, Univer s (TRAVEL-EAS 03-11 Oral, ity of E 03:06: TIDPRN, [place] (MECLIZINE) 28 Starting Medi micky ) tablet [...] 1,000 mL 00 :00 IV Medical Infusion, [place] ONCE, 1 dose, 03/10/19 at 1845, SELINA gabapentin 2018- No 300mg Take 300 U nivers 300 mg 03-10 mg by ity of capsule 00:00: 00:00 mouth 2 [place] 00 :00 (two) Medical times Branch daily. carvedilol 2018- No [id number] 25mg Take 1 [facility] 25 mg 11-06 9103 tablet by ity of tablet 00:00: 00:00 mouth 2 [place] 00 :00 (two) Medical times Branch daily with meals. linagliptin 2019- No [id number] 5mg Take 1 Univers (TRADJENTA) 11-06 9103 tablet by it y of 5 mg tablet 00:00: 00:00 mouth [place] 00 :00 daily. Medical Branch atorvastati 2019- No [id number] 40mg Take 1 Univers n (LIPITOR) 11-06 9103 tablet by it y of 40 mg 00:00: 00:00 mouth at [place] tablet 00 :00 bedtime. Medical Branch rOPINIRole 2018- No [id number] 2mg Take 1 [facility] 2 mg tablet 11-06 9103 tablet by it y of 00:00: 00:00 mouth 2 [place] 00 :00 (two) Medical times Branch daily. levalbutero 2018- No [id number] .63mg Inhale Univers l 0.63 mg/3 11-06 9103 0.63 mg 4 it y of mL 00:00: 00:00 (four) [place] nebulizer 00 :00 times Medical solution daily. Branch digoxin 125 2018- No [id number] 125ug Take 1 [facility] mcg tablet 11-0603 tablet by ity of 00:00: 00:00 mouth [place] 00 :00 every 48 Medical (forty-eig Branch ht) hours. apixaban 2018- No [id number] 5mg Take 1 [facility] (ELIQUIS) 5 11-06 9103 tablet by it y of mg tablet 00:00: 00:00 mouth 2 [place] 00 :00 (two) Medical times Branch daily. insulin 2018- No [id number] 20U inject 20 [facility] glargine 11-0603 Units ity of 100 unit/mL 00:00: 00:00 under the [place] injection 00 :00 skin at Medical bedtime. Branch furosemide 2019- No [id number] 40mg Take 1 [facility] 40 mg 11-0603 tablet by ity of tablet 00:00: 00:00 mouth [place] 00 :00 daily. Medical Branch magnesium 2019- No [id number] 800mg Take 2 [facility] oxide 400 11-06 9103 tablets by ity of mg (241.3 00:00: 00:00 mouth 2 [place] mg 00 :00 (two) Medical magnesium) times Paicines tablet daily. traMADOL 50 Yes 50mg Take 1 Univ ers mg tablet 1-03 tablet by ity o f 00:00: mouth 2 [place] 00 (two) Medical times Branch daily as needed for Pain (scale 4-6) or Pain (scale 7-10). traMADOL 50 2019-0 Yes 50mg Take 1 Univ ers mg tablet -03 tablet by ity o f 00:00: mouth 2 00 (two) Medical times Branch daily as needed for Pain (scale 4-6) or Pain (scale 7-10). diphenhydrA 2018-0 2019- No 25mg Take 1 Uni vers MINE 25 mg -03-10 tablet by ity of tablet 00:00: 00:00 [...] Branch daily as needed for Nausea. meclizine Yes 25mg Take 1 Univer s 25 mg 5-17 tablet by ity of tablet 00:00: mouth 3 [place] 00 (three) Medical times Branch daily as needed for Nausea. meclizine Yes 25mg Take 1 Univer s 25 mg 5-17 tablet by ity of tablet 00:00: mouth 3 [place] 00 (three) Medical times Branch daily as needed for Nausea. meclizine Yes 25mg Take 1 Univer s 25 mg 5-17 tablet by ity of tablet 00:00: mouth 3 00 (three) Medical times Branch daily as needed for Nausea. meclizine 2020- No 25mg Take 1 Unive rs 25 mg 5-17 09-15 tablet by ity of tablet 00:00: 00:00 mouth 3 [place] 00 :00 (three) Medical times Branch daily as needed for Nausea. meclizine 2020- No 25mg Take 1 Unive rs 25 mg 5-17 09-15 tablet by ity of tablet 00:00: 00:00 mouth 3 [place] 00 :00 (three) Medical times Branch daily as needed for Nausea. amlodipine amlodipine No 1 Q1D amlodipine [facility] 5 mg tablet 5 mg tablet 5 mg F amily Take 1 Take 1 tablet Practic tablet tablet Take 1 e every day every day tablet by oral by oral every day route. route. by oral route. atorvastati atorvastati No 1 Q1D atorvastat [facility] n 40 mg n 40 mg in 40 mg Famil y tablet Take tablet Take tablet Practic 1 tablet 1 tablet Take 1 e every day every day tablet by oral by oral every day route. route. by oral route. Debraaglar Debraaglar No [facility] Brandy Nava s) KwmarleyPen Family U-100 U-100 U-100 Practic Insulin 100 Insulin 100 Insulin e unit/mL (3 unit/mL (3 100 mL) mL) unit/mL (3 subcutaneou subcutaneou mL) s Inject 18 s Inject 18 subcutaneo units every units every us Inject day by day by 18 units subcutaneou subcutaneou every day s route. s route. [facility] route. carvedilol carvedilol No 1 BID carvedilol [facility] 25 mg 25 mg 25 mg Family tablet Take tablet Take tablet Practic 1 tablet 1 tablet Take 1 e twice a day twice a day tablet by oral by oral twice a route. route. day by oral route. clonidine clonidine No 1 clonidine [facility] HCl 0.1 mg HCl 0.1 mg HCl [...] route. furosemide furosemide No 1 Q1D furosemide [facility] 40 mg 40 mg 40 mg Family tablet Take tablet Take tablet Practic 1 tablet 1 tablet Take 1 e every day every day tablet by oral by oral every day route. route. by oral route. gabapentin gabapentin No 1capsul TID gabapentin [facility] 300 mg 300 mg e(s) 300 mg Family capsule capsule capsule Practi c Take 1 Take 1 Take 1 e capsule 3 capsule 3 capsule 3 times a day times a day times a by oral by oral day by route. route. oral route. omeprazole omeprazole No 1capsul Q1D omeprazole [facility] 40 mg 40 mg e(s) 40 mg Family capsule,del capsule,del capsule,de Practic ayed ayed layed e release release release Take 1 Take 1 Take 1 capsule capsule capsule every day every day every day by oral by oral by oral route. route. route. Immunizations Ordered Filled Immunization Date Status Comments [facility] e Immunization Name Name SARS-COV-2 COVID-19 2020-10-18 Completed Unive rsity of PFIZER VACCINE 00:00:00 [facility] SARS-COV-2 COVID-19 2020-10-18 Completed Unive rsity of PFIZER VACCINE 00:00:00 [facility] SARS-COV-2 COVID-19 2020-10-18 Completed Unive rsity of PFIZER VACCINE 00:00:00 [facility] SARS-COV-2 COVID-19 2020-10-18 Completed Unive rsity of PFIZER VACCINE 00:00:00 [place] Medi micky Branch SARS-COV-2 COVID-19 2020-10-18 Completed Unive rsity of PFIZER VACCINE 00:00:00 [facility] Branch SARS-COV-2 COVID-19 2020-10-18 Completed Unive rsity of PFIZER VACCINE 00:00:00 [facility] Branch SARS-COV-2 COVID-19 2020-10-18 Completed Unive rsity of PFIZER VACCINE 00:00:00 [facility] Branch SARS-COV-2 COVID-19 2020-10-18 Completed Unive rsity of PFIZER VACCINE 00:00:00 [facility] Branch SARS-COV-2 COVID-19 2020-10-18 Completed Unive rsity of PFIZER VACCINE 00:00:00 [facility] Branch SARS-COV-2 COVID-19 2020-10-18 Completed Unive rsity of PFIZER VACCINE 00:00:00 [facility] Branch SARS-COV-2 COVID-19 2020-10-18 Completed Unive rsity of PFIZER VACCINE 00:00:00 [facility] Branch SARS-COV-2 COVID-19 2020-10-18 Completed Unive rsity of PFIZER VACCINE 00:00:00 [facility] Branch SARS-COV-2 COVID-19 2020-10-18 Completed Unive rsity of PFIZER VACCINE 00:00:00 [facility] Branch SARS-COV-2 COVID-19 2020-10-18 Completed Unive rsity of PFIZER VACCINE 00:00:00 [facility] Branch SARS-COV-2 COVID-19 2020-10-18 Completed Unive rsity of PFIZER VACCINE 00:00:00 [facility] Branch SARS-COV-2 COVID-19 2020-10-18 Completed Unive rsity of PFIZER VACCINE 00:00:00 [facility] Branch SARS-COV-2 COVID-19 2020-10-18 Completed Unive rsity of PFIZER VACCINE 00:00:00 [facility] Branch SARS-COV-2 COVID-19 2020-10-18 Completed Unive rsity of PFIZER VACCINE 00:00:00 [facility] Branch SARS-COV-2 COVID-19 2020-09-27 Completed Unive rsity of PFIZER VACCINE 00:00:00 [facility] Branch SARS-COV-2 COVID-19 2020-09-27 Completed Unive rsity of PFIZER VACCINE 00:00:00 [facility] Branch SARS-COV-2 COVID-19 2020-09-27 Completed Unive rsity of PFIZER VACCINE 00:00:00 [facility] Branch SARS-COV-2 COVID-19 2020-09-27 Completed Unive rsity of PFIZER VACCINE 00:00:00 [facility] Branch SARS-COV-2 COVID-19 2020-09-27 Completed Unive rsity of PFIZER VACCINE 00:00:00 [facility] Branch SARS-COV-2 COVID-19 2020-09-27 Completed Unive rsity of PFIZER VACCINE 00:00:00 [facility] Branch SARS-COV-2 COVID-19 2020-09-27 Completed Unive rsity of PFIZER VACCINE 00:00:00 [facility] Branch SARS-COV-2 COVID-19 2020-09-27 Completed Unive rsity of PFIZER VACCINE 00:00:00 [facility] Branch SARS-COV-2 COVID-19 2020-09-27 Completed Unive rsity of PFIZER VACCINE 00:00:00 [facility] Branch SARS-COV-2 COVID-19 2020-09-27 Completed Unive rsity of PFIZER VACCINE 00:00:00 [facility] Branch SARS-COV-2 COVID-19 2020-09-27 Completed Unive rsity of PFIZER VACCINE 00:00:00 [facility] Branch SARS-COV-2 COVID-19 2020-09-27 Completed Unive rsity of PFIZER VACCINE 00:00:00 [facility] Branch SARS-COV-2 COVID-19 2020-09-27 Completed Unive rsity of PFIZER VACCINE 00:00:00 [facility] Branch SARS-COV-2 COVID-19 2020-09-27 Completed Unive rsity of PFIZER VACCINE 00:00:00 [facility] Branch SARS-COV-2 COVID-19 2020-09-27 Completed Unive rsity of PFIZER VACCINE 00:00:00 [facility] Branch SARS-COV-2 COVID-19 2020-09-27 Completed Unive rsity of PFIZER VACCINE 00:00:00 [facility] Branch SARS-COV-2 COVID-19 2020-09-27 Completed Unive rsity of PFIZER VACCINE 00:00:00 [facility] Branch SARS-COV-2 COVID-19 2020-09-27 Completed Unive rsity of PFIZER VACCINE 00:00:00 [facility] Influenza Virus 2018-04-22 Completed Universit y of Vaccine 00:00:00 [facility] Influenza Virus 2018-04-22 Completed Universit y of Vaccine 00:00:00 [facility] Influenza Virus 2018-04-22 Completed Universit y of Vaccine 00:00:00 [facility] Influenza Virus 2018-04-22 Completed Universit y of Vaccine 00:00:00 [facility] Influenza Virus 2018-04-22 Completed Universit y of Vaccine 00:00:00 [facility] Influenza Virus 2018-04-22 Completed Universit y of Vaccine 00:00:00 [facility] Influenza Virus 2018-04-22 Completed Universit y of Vaccine 00:00:00 [facility] Influenza Virus 2018-04-22 Completed Universit y of Vaccine 00:00:00 [facility] Influenza Virus 2018-04-22 Completed Universit y of Vaccine 00:00:00 [facility] Influenza Virus 2018-04-22 Completed Universit y of Vaccine 00:00:00 [facility] Influenza Virus 2018-04-22 Completed Universit y of Vaccine 00:00:00 [facility] Influenza Virus 2018-04-22 Completed Universit y of Vaccine 00:00:00 [facility] Influenza Virus 2018-04-22 Completed Universit y of Vaccine 00:00:00 [facility] Influenza Virus 2018-04-22 Completed Universit y of Vaccine 00:00:00 [facility] Influenza Virus 2018-04-22 Completed Universit y of Vaccine 00:00:00 [facility] Influenza Virus 2018-04-22 Completed Universit y of Vaccine 00:00:00 [facility] Influenza Virus 2018-04-22 Completed Universit y of Vaccine 00:00:00 [facility] Influenza Virus 2018-04-22 Completed Universit y of Vaccine 00:00:00 [facility] Influenza Virus 2018-04-22 Completed Universit y of Vaccine 00:00:00 [facility] Influenza Virus 2018-04-22 Completed Universit y of Vaccine 00:00:00 [facility] Influenza Virus 2018-04-22 Completed Universit y of Vaccine 00:00:00 [facility] Influenza Virus 2018-04-22 Completed Universit y of Vaccine 00:00:00 [facility] Influenza Virus 2018-04-22 Completed Universit y of Vaccine 00:00:00 [facility] Influenza Virus 2018-04-22 Completed Universit y of Vaccine 00:00:00 [facility] Influenza Virus 2018-04-22 Completed Universit y of Vaccine 00:00:00 [facility] Influenza Virus 2018-04-22 Completed Universit y of Vaccine 00:00:00 [facility] Influenza Virus 2018-04-22 Completed Universit y of Vaccine 00:00:00 [facility] Influenza Virus 2018-04-22 Completed Universit y of Vaccine 00:00:00 [facility] Influenza Virus 2018-04-22 Completed Universit y of Vaccine 00:00:[address] [facility] [facility] Influenza Virus 2018-04-22 Completed Universit y of Vaccine 00:00:00 [facility] Pneumococcal 2017-07-23 Completed University o f Polysaccharide, [...] 2017-07-23 Completed University o f Polysaccharide, 00:00:00 [place] [facility] PPSV23 (PNEUMOVAX) Branch Pneumococcal 2017-07-23 Completed [place] o f Polysaccharide, 00:00:00 [place] [facility] PPSV23 (PNEUMOVAX) [facility] Vital Signs Vital Name Observation Time Observation Value Comments Source Systolic blood 2021-04-06 17:00:00 114 mm[Hg] Univer sity of pressure [facility] Diastolic blood 2021-04-06 17:00:00 55 mm[Hg] Unive rsity of pressure [facility] Heart rate 2021-04-06 17:00:00 60 /min Universi ty of [facility] Body temperature 2021-04-06 17:00:00 36.67 Kourtney Univ ersity of [facility] Respiratory rate 2021-04-06 17:00:00 16 /min Univ ersity of [facility] Oxygen saturation in 2021-04-06 17:00:00 98 /min University of Arterial blood by gopogo Pulse oximetry Branch Body height 2021-04-06 13:02:54 170.2 cm [facility] Body weight 2021-04-06 13:02:54 86.637 kg [facility] BMI 2021-04-06 13:02:54 29.91 kg/m2 Universi ty [facility] Systolic blood 2021-03-29 16:00:00 126 mm[Hg] Univer sity of pressure [facility] Diastolic blood 2021-03-29 16:00:00 83 mm[Hg] Unive rsity of pressure [facility] Heart rate 2021-03-29 16:00:00 68 /min [facility] Body temperature 2021-03-29 16:00:00 35.56 Kourtney Univ [facility] Respiratory rate 2021-03-29 16:00:00 26 /min Univ [facility] Oxygen saturation in 2021-03-29 16:00:00 83 /min University of Arterial blood by [employer] micky Pulse oximetry Branch Body weight 2021-03-26 09:11:00 86.909 kg [facility] BMI 2021-03-26 09:11:00 30.01 kg/m2 Universi ty of [facility] Body height 2021-03-23 20:50:00 170[address] [facility] Systolic blood 2021-03-17 20:36:00 155 mm[Hg] Univer sity of pressure [facility] Diastolic blood 2021-03-17 20:36:00 82 mm[Hg] Unive rsity of pressure [facility] Heart rate 2021-03-17 20:32:00 87 /min Universi ty of [facility] Body temperature 2021-03-17 20:32:00 36.22 Kourtney [address]ity of [facility] Respiratory rate 2021-03-17 20:32:00 17 /min [facility] Oxygen saturation in 2021-03-17 20:32:00 94 /min [facility] blood by [facility] Pulse oximetry Branch Body height 2021-03-16 23:00:00 170.[address] [facility] Body weight 2021-03-16 23:00:[address] [facility] BMI 2021-03-16 23:00:00 33.14 kg/m2 Universi ty of [facility] Height 2020-03-22 00:00:00 67 [in_i] [facility] Height 2020-02-18 00:00:00 67 [in_i] [facility] Height 2019-12-18 00:00:00 67 [in_i] [facility] BMI (Body Mass 2019-12-18 00:00:00 27.4 kg/m2 [facility] Body Weight 2019-12-18 00:00:00 175 [lb_av] [facility] Body height 2019-08-14 16:46:00 170.[address] [facility] Body weight 2019-08-14 16:46:[address] [facility] BMI 2019-08-14 16:46:00 26.94 kg/m2 Universi ty of [facility] Systolic blood 2019-03-18 20:40:00 144 mm[Hg] Univer sity of [facility] Diastolic blood 2019-03-18 20:40:00 73 mm[Hg] Unive rsity of [facility] Heart rate 2019-03-18 20:40:00 85 /min Universi ty of [facility] Body temperature 2019-03-18 20:40:00 37 Kourtney [facility] Respiratory rate 2019-03-18 20:40:00 20 /min [facility] Oxygen saturation in 2019-03-18 20:40:00 95 /min [facility] Arterial blood by [facility] Pulse oximetry Paicines Body height 2019-03-11 02:48:00 170.2 cm [facility] Body weight 2019-03-11 02:48:00 81.647 kg [facility] BMI 2019-03-11 02:48:00 28.19 kg/m2 [facility] Procedures Procedure Date / Time Performing Clinician Source Performed AUTHORIZATION FOR 2021-10-24 05:01:00 Doctor Unassigned, No [facility] RELEASE OF PHI Name [facility] EXTERNAL PROVIDER 2021-04-20 05:01:00 Doctor Unassigned, No [facility] RECORDS Name [facility] ED LACERATION REPAIR 2021-04-06 14:26:04 Winifred Gill [facility] CT TRAUMA HEAD WO 2021-04-06 13:33:06 Barney Bland [facility] CONTRAST [facility] CT TRAUMA CERVICAL SPINE 2021-04-06 13:33:06 [facility] WO CONTRAST [facility] XR CHEST 1 VW 2021-04-06 13:20:21 Barney Bland [facility] XR KNEE 3 VW BILATERAL 2021-04-06 13:20:21 Barney Bland [facility] COMP. METABOLIC PANEL 2021-04-06 13:13:00 Barney Bland [facility] ([id number]) [facility] CBC WITH DIFF 2021-04-06 13:13:00 Barney Bland [facility] PROTHROMBIN TIME / INR 2021-04-06 13:13:00 Barney Bland [facility] HB ABO GROUPING 2021-04-06 13:11:00 Barney Bland [facility] POCT GLUCOSE (AUTOMATED) 2021-03-29 16:36:00 Jad Gavin [facility] POCT GLUCOSE (AUTOMATED) 2021-03-29 12:42:00 Jad Gavin [facility] URINALYSIS 2021-03-29 09:49:00 Lindsey Olson [facility] OSMOLALITY URINE 2021-03-29 09:48:00 Lindsey Olson [facility] PHOSPHORUS 2021-03-29 09:45:00 Lindsey Olson [facility] URIC ACID 2021-03-29 09:45:00 Lindsey Olson [facility] MAGNESIUM 2021-03-29 09:45:00 Lindsey Olson [facility] OSMOLALITY, SERUM OR 2021-03-29 09:45:00 Lindsey Olson [facility] PLASMA [facility] COMP. METABOLIC PANEL 2021-03-29 09:45:00 Lindsey Olson [facility] ([id number]) [facility] POCT GLUCOSE (AUTOMATED) 2021-03-29 01:21:00 Jad Gavin [facility] POCT GLUCOSE (AUTOMATED) 2021-03-28 21:38:00 Jad Gavin [facility] POCT GLUCOSE (AUTOMATED) 2021-03-28 16:39:00 Jad Gavin [facility] POCT GLUCOSE (AUTOMATED) 2021-03-28 12:21:00 Jad Gavin [facility] BASIC METABOLIC PANEL 2021-03-28 10:40:00 Jad Gavin [facility] (NA, K, CL, CO2, Medical Branch GLUCOSE, BUN, CREATININE, CA) CBC WITH DIFF 2021-03-28 10:40:[address] o f [facility] POCT GLUCOSE (AUTOMATED) 2021-03-28 01:57:00 Jad Gavin [facility] POCT GLUCOSE (AUTOMATED) 2021-03-27 22:18:00 [facility] ([facility]) 2021-03-27 16:41:00 Jad Gavin [facility] POCT GLUCOSE (AUTOMATED) 2021-03-27 12:57:00 Jad Gavin [facility] BASIC METABOLIC PANEL 2021-03-27 11:28:00 Jad Gavin [facility] (NA, K, CL, CO2, Medical Branch GLUCOSE, BUN, CREATININE, CA) CBC WITH DIFF 2021-03-27 11:28:00 Jad Gavin [facility] POCT GLUCOSE (AUTOMATED) 2021-03-27 00:56:00 Jad Gavin versity of [facility] POCT GLUCOSE (AUTOMATED) 2021-03-26 20:51:00 Jad Gavin Uni [facility] POCT GLUCOSE (AUTOMATED) 2021-03-26 17:05:00 Jad Gavin Uni versity [facility] POCT GLUCOSE (AUTOMATED) 2021-03-26 12:46:00 Jad Gavin [facility]ity of [facility] POCT GLUCOSE (AUTOMATED) 2021-03-26 00:46:00 Jad Gavin versity of [facility] POCT GLUCOSE (AUTOMATED) 2021-03-25 21:58:00 Jad Gavin versity of [facility] POCT GLUCOSE (AUTOMATED) 2021-03-25 16:00:00 Jad Gavin [facility] POCT GLUCOSE (AUTOMATED) 2021-03-25 12:52:00 Jad Gavin [facility] versity of [facility] BASIC METABOLIC PANEL 2021-03-25 10:20:00 Jad Gavin [facility] (NA, K, CL, CO2, Medical Branch GLUCOSE, BUN, CREATININE, CA) CBC WITH DIFF 2021-03-25 10:20:00 Jad Gavin [facility] POCT GLUCOSE (AUTOMATED) 2021-03-25 00:26:00 Jad Gavin Uni versity [facility] POCT GLUCOSE (AUTOMATED) 2021-03-24 21:13:00 Jad Gavin Uni versity of [facility] POCT GLUCOSE (AUTOMATED) 2021-03-24 16:57:00 Jad Gavin [facility] POCT GLUCOSE (AUTOMATED) 2021-03-24 12:58:00 Jad Gavin Uni vers[facility] of [facility] POCT GLUCOSE (AUTOMATED) 2021-03-24 01:29:00 Jad Gavin Uni versity of [facility] POCT GLUCOSE (AUTOMATED) 2021-03-23 21:32:00 Jad Gavin [facility] MRSA / MSSA SCREEN BY 2021-03-23 20:46:00 Marisol Bella [facility] PCR, [facility] URINALYSIS 2021-03-23 16:15:00 Singer [facility] CT CHEST PULMONARY 2021-03-23 15:50:42 Singer [facility] ANGIOGRAM Medical Branch TROPONIN I 2021-03-23 15:27:00 Singer [facility] COMP. METABOLIC PANEL 2021-03-23 15:27:00 Singer [facility] ([id number]) [facility] CBC WITH DIFF 2021-03-23 15:27:00 Singer [facility] N-TERMINAL PRO-BNP 2021-03-23 15:27:00 Singer [facility] EKG-12 LEAD 2021-03-23 15:24:20 Singer [facility] POCT GLUCOSE (AUTOMATED) 2021-03-17 22:19:00 Gemma White [facility] TRANSTHORACIC ECHO (TTE) 2021-03-17 19:57:00 Gale Gillette [facility] COMPLETE W/ CONTRAST Medical [facility] POCT GLUCOSE (AUTOMATED) 2021-03-17 16:51:00 Gemma White [facility] POCT GLUCOSE (AUTOMATED) 2021-03-17 13:12:00 Gemma White [facility] CBC WITH DIFF 2021-03-17 09:46:00 Leta [facility] MAGNESIUM 2021-03-17 09:45:00 [place], [facility] C-REACTIVE PROTEIN 2021-03-17 09:45:[address] [facility] BASIC METABOLIC PANEL 2021-03-17 09:45:00 Gillette [facility] (NA, K, CL, CO2, Medical Branch GLUCOSE, BUN, CREATININE, CA) POCT GLUCOSE (AUTOMATED) 2021-03-17 02:14:00 Gemma White [facility] BASIC METABOLIC PANEL 2021-03-17 01:46:00 Gale Gillette [facility] (NA, K, CL, CO2, Medical Branch GLUCOSE, BUN, CREATININE, CA) PROTHROMBIN TIME / INR 2021-03-17 01:46:00 [facility] LACTIC ACID WHOLE BLOOD 2021-03-17 01:46:00 Leta [facility] POCT GLUCOSE (AUTOMATED) 2021-03-16 22:37:00 Gemma White [facility] XR CHEST 1 VW 2021-03-16 16:04:12 Andriy Pierson [facility] URINALYSIS 2021-03-16 16:01:00 Andriy Pierson [facility] PROCALCITONIN 2021-03-16 15:41:00 Andriy Pierson [facility] HB ECG ROUTINE & RHYTHM 2021-03-16 15:35:04 Andriy Pierson [facility] BLOOD CULTURE SCREEN 2021-03-16 15:32:00 Andriy Pierson [facility] LACTATE DEHYDROGENASE 2021-03-16 15:32:00 Andriy Pierson [facility] FERRITIN SERUM 2021-03-16 15:25:00 Andriy Pierson [facility] TROPONIN I 2021-03-16 15:25:00 Andriy Pierson [facility] COMP. METABOLIC PANEL 2021-03-16 15:25:00 Andriy Pierson [facility] ([id number]) [facility] CBC WITH DIFF 2021-03-16 15:25:00 Andriy Pierson [facility] GLYCOSYLATED HEMOGLOBIN 2021-03-16 15:25:00 Leta [facility] (A1C) [facility] PROTHROMBIN TIME / INR 2021-03-16 15:25:00 Andriy Pierson [facility] D-DIMER 2021-03-16 15:25:00 Andriy Pierson [facility] FIBRINOGEN 2021-03-16 15:25:00 Andriy Pierson [facility] N-TERMINAL PRO-BNP 2021-03-16 15:25:00 Andriy Pierson [facility] LACTIC ACID WHOLE BLOOD 2021-03-16 15:24:00 Andriy Pierson [facility] CBC WITH DIFF 2021-01-22 15:25:00 Lindsey Olson [facility] ASSIGNMENT OF BENEFITS 2021-01-22 15:09:35 Doctor Unassigned, No General acute hospital ASSIGNMENT OF BENEFITS 2020-09-10 21:16:10 Doctor Unassigned, No General acute hospital MR BRAIN WO CONTRAST 2020-05-04 18:46:12 Requisition, Paper [facility] CONSENT/REFUSAL FOR 2020-05-04 17:42:43 [facility] XR KNEE 3 VW RIGHT 2019-08-11 18:42:30 Jaiden Luna [facility] EXTERNAL PROVIDER 2019-07-31 06:01:00 Doctor Unassigned, No [facility] RECORDS [facility] AUTHORIZATION FOR 2019-07-03 06:01:00 Doctor Unassigned, No [facility] RELEASE OF PHI [facility] POCT GLUCOSE (AUTOMATED) 2019-03-18 16:30:00 Taina Castro [facility] POCT GLUCOSE (AUTOMATED) 2019-03-18 12:21:00 Taina Castro [facility] BASIC METABOLIC PANEL 2019-03-18 09:26:00 Ken Gomez [facility] (NA, K, CL, CO2, Medical Paicines GLUCOSE, BUN, CREATININE, CA) POCT GLUCOSE (AUTOMATED) 2019-03-18 06:44:00 Taina Castro [facility] POCT GLUCOSE (AUTOMATED) 2019-03-18 01:38:00 Taina Castro [facility] XR CHEST 1 VW 2019-03-17 22:07:36 Ken Gomez [facility] POCT GLUCOSE (AUTOMATED) 2019-03-17 21:58:00 Taina Castro Shanika versity of [facility] POCT GLUCOSE (AUTOMATED) 2019-03-17 16:09:00 Taina Castro Shanika versmiguel angel of [facility] CBC WITH DIFFERENTIAL 2019-03-17 12:37:00 Chucky Elkins [facility] POCT GLUCOSE (AUTOMATED) 2019-03-17 12:37:00 Taina Castro Shanika enrique of [facility] BASIC METABOLIC PANEL 2019-03-17 12:36:00 Chucky Elkins [facility] (NA, K, CL, CO2, Medical Branch GLUCOSE, BUN, CREATININE, CA) POCT GLUCOSE (AUTOMATED) 2019-03-17 00:33:00 Taina Castro Uni versity of [facility] POCT GLUCOSE (AUTOMATED) 2019-03-16 21:30:00 Taina Castro Uni versity of [facility] POCT GLUCOSE (AUTOMATED) 2019-03-16 16:25:00 Taina Castro Shanika versity of [facility] XR FOOT 3+ VW RIGHT 2019-03-16 15:46:29 Chucky Elkins [facility] POCT GLUCOSE (AUTOMATED) 2019-03-16 12:35:00 Ednancy Angeliadeonte Uni versity of [facility] POCT GLUCOSE (AUTOMATED) 2019-03-16 00:28:00 Howard Angeliay Uni versity of [facility] POCT GLUCOSE (AUTOMATED) 2019-03-15 21:50:00 EdTaina cruz Uni versity of [facility] POCT GLUCOSE (AUTOMATED) 2019-03-15 16:15:00 Angelia Castroy Uni versity [facility] POCT GLUCOSE (AUTOMATED) 2019-03-15 13:56:00 Ednancy Angeliay Uni versity of [facility] POCT GLUCOSE (AUTOMATED) 2019-03-15 12:51:00 EdAngelia cruzy Uni versity of [facility] POCT GLUCOSE (AUTOMATED) 2019-03-15 00:32:00 Ednancy Mercy Uni versity of [facility] POCT GLUCOSE (AUTOMATED) 2019-03-14 21:33:00 Ednancy Angeliay Uni versity of [facility] POCT GLUCOSE (AUTOMATED) 2019-03-14 16:56:00 Edionwe, Mercy [facility] POCT GLUCOSE (AUTOMATED) 2019-03-14 12:23:00 EdAngelia cruzy Uni [facility] XR CHEST 1 VW 2019-03-14 07:21:50 Daniela Hamm Vanzant o f [facility] POCT GLUCOSE (AUTOMATED) 2019-03-14 01:22:00 EdAngelia cruzy Uni vers[facility] XR KNEE 3 VW LEFT 2019-03-13 23:04:42 Chucky Elkins [facility] POCT GLUCOSE (AUTOMATED) 2019-03-13 21:03:00 Ednancy Mercy Uni versity of [facility] POCT GLUCOSE (AUTOMATED) 2019-03-13 16:22:00 Ednancy, Mercy Uni versity of [facility] POCT GLUCOSE (AUTOMATED) 2019-03-13 12:25:00 Ednancy Mercy Uni versity of [facility] BASIC METABOLIC PANEL 2019-03-13 09:57:00 Chucky Elkins [facility] (NA, K, CL, CO2, Medical Branch GLUCOSE, BUN, CREATININE, CA) CBC WITH DIFFERENTIAL 2019-03-13 09:57:00 Chucky Elkins [facility] POCT GLUCOSE (AUTOMATED) 2019-03-13 01:34:00 Ednancy Angeliay Uni [facility] POCT GLUCOSE (AUTOMATED) 2019-03-12 20:57:00 Ednancy Mercy Uni versity [facility] POCT GLUCOSE (AUTOMATED) 2019-03-12 16:27:00 Ednancy Mercy [facility] POCT GLUCOSE (AUTOMATED) 2019-03-12 12:40:00 Edionwe, Mercy [facility] POCT GLUCOSE (AUTOMATED) 2019-03-12 02:01:00 Edionwe, Mercy [facility] POCT GLUCOSE (AUTOMATED) 2019-03-11 21:12:00 Edionwe, Mercy [facility] POCT GLUCOSE (AUTOMATED) 2019-03-11 16:28:00 Edionwe, Mercy [facility] POCT GLUCOSE (AUTOMATED) 2019-03-11 12:31:00 [facility] BASIC METABOLIC PANEL 2019-03-11 10:46:00 [facility] (NA, K, CL, CO2, Medical Branch GLUCOSE, BUN, CREATININE, CA) CBC WITH DIFFERENTIAL 2019-03-11 10:46:00 [facility] GLYCOSYL[facility]EMOGLOBIN 2019-03-11 10:46:00 [facility] (A1C) [facility] POCT GLUCOSE (AUTOMATED) 2019-03-11 03:58:00 Howard [facility] DIGOXIN 2019-03-11 01:25:00 Fariba Cantu [facility] XR CHEST 1 VW 2019-03-11 01:14:26 Fariba Cantu [facility] URINALYSIS 2019-03-11 00:51:00 Julita Gonzales [facility] URINE CULTURE 2019-03-11 00:51:00 Fariba Cantu [facility] BLOOD CULTURE SCREEN 2019-03-11 00:21:00 Fariba Cantu [facility] BLOOD CULTURE WORKUP 2019-03-11 00:21:00 Fariba Cantu [facility] GRAM NEGATIVE BLOOD 2019-03-11 00:21:00 Fariba Cantu [facility] PATHOGENS DNA [facility] PROBE-AEROBIC EKG-12 LEAD 2019-03-11 00:03:03 Fariba Cantu [facility] LIPASE 2019-03-11 00:01:00 Julita Gonzales [facility] TROPONIN I 2019-03-11 00:01:00 Julita Gonzales [facility] HEPATIC FUNCTION PANEL 2019-03-11 00:01:00 Julita Gonzales [facility] ([id number]) (ALB,T.PRO,BILI Medical Branch T,BU/BC,ALT,AST,ALK PHOS) BASIC METABOLIC PANEL 2019-03-11 00:01:00 Julita Gonzales [facility] (NA, K, CL, CO2, Medical Branch GLUCOSE, BUN, CREATININE, CA) CBC WITH DIFFERENTIAL 2019-03-11 00:01:00 Julita Gonzales Uni versity [facility] BLOOD CULTURE SCREEN 2019-03-11 00:00:00 Fariba Cantu ity [facility] BLOOD CULTURE WORKUP 2019-03-11 00:00:00 Fariba Cantu [facility] LACTIC ACID WHOLE BLOOD 2019-03-10 23:59:00 Fariba Cantu [facility] 2019-03-10 05:01:00 Doctor Rocio, Melinda Nava iversity [facility] Cataract Surgery Complex [facility] Knee Arthroscopy/surgery [facility] Encounters Start End Encounter Admission Attending Care Care Encounter Source Date/Time Date/Time Type Type Clinicians Facility Department ID 2021-05-10 Emergency [facility] [id number] Univers 02:12:[address] 2021-05-09 Emergency [facility] [id number] Univers 22:45:[address] [facility] 2021-05-09 Emergency [facility] [id number] Univers 21:07:[address] [facility] 2021-10-24 2021-10-24 Orders Doctor CHILDRESS [id number] Univers 00:00:00 00:00:00 Only Unassigned, ARASELI [id number] ity of [facility] [id number] Maulik as [id number] [address] 2021-04-20 2021-04-20 Orders Doctor CHILDRESS [id number] Univers 00:00:00 00:00:00 Only Unassigned, ARASELI [id number] ity of [facility] [id number] Maulik as [id number] [address] 2021-04-06 2021-04-[address] [facility] [id number] Univers 08:17:00 12:44:00 [facility] [id number] [id number] [id number] [facility] 014 Branch ([facility]) 2021-03-30 2021-03-30 Transition Paco Salas [id number] Univers 00:00:00 00:00:00 of Care Patty Laboy [id number] it [id number] [id number] [facility] 403 Branch 2021-03-23 2021-03-29 [facility] Yuri Dias [facility] 1.2.840.1 [id number] Univers 10:23:00 14:48:00 Encounter Jad Gavin [id number] ity [id number] [id number] [facility] 080 Branch 2021-03-18 2021-03-18 Transition Paco Salas [id number] Univers 00:00:00 00:00:00 of Care Patty Laboy [id number] it y [id number] [id number] [facility] 403 Branch 2021-03-16 2021-03-17 [facility] Andriy Pierson 1.2.840. 114 [id number] Univers 10:00:00 19:00:00 Encounter Cindy Gemma Araseli [id number] ity of [facility] [id number] [place]ulik as [phone] [facility] 093 Branch 2021-03-15 2021-03-15 Telephone FIOR Chavez [id number] Univers 00:00:00 00:00:00 Acacia COHN [id number] i ty of HOSPITAL [id number] Maulik as [phone] [facility] 019 Branch 2021-03-15 2021-03-15 Letter FIOR Chavez [id number] Univers 00:00:00 00:00:00 (Out) Acacia COHN [id number] i ty of [facility] [id number] Maulik as [id number] [facility] 019 Branch 2021-03-14 2021-03-14 Laboratory Only, Ang Db Test [place] 1.2.8 40.114 [id number] Univers 17:45:12 18:00:12 Only Phillip Reynoso [id number] ity of [place] [id number] Maulik as Andreas?Blea [id number] Mt dical kney [address] Building 2021-03-14 2021-03-14 Outpatient [facility] [id number] Univers 18:00:00 18:00:[id number] [facility] 2021-03-14 2021-03-14 [facility] [id number] Univers 18:00:00 18:00:00 PH[address]IP [address] o f [facility] 2021-01-22 2021-01-22 Visual Training Aide Florinda, Marino Lab Main [facility] 1.2.8 40.114 [id number] Univers 10:14:09 10:29:09 Visit Lindsey Olson [id number] [place]y [id number] [phone] [facility] [address] Branch Building 2021-01-22 2021-01-22 Outpatient R [facility] [id number] Univers 10:15:00 10:15:[id number] [facility] 2021-01-22 2021-01-22 Outpatient [facility] [id number] Univers 10:15:00 10:15:[address] [facility] 2021-01-22 2021-01-22 Orders Doctor CHILDRESS 1.2.840.114 [id number] Univers 00:00:00 00:00:00 Only Unassigned, ARASELI 350.1.13.10 ity of [place] [facility] 4.2.7.2.686 Maulik as [phone] [address] 2020-12-29 2020-12-29 Outpatient SkinnyGenevieve [facility] [phone] [facility] 11:46:00 11:46:00 _A_ 47687 Family Practic e 2020-10-18 2020-10-18 [facility] [id number] Univers 15:30:00 15:30:00 JENNIFER ity [facility] 2020-09-27 2020-09-27 [facility] [id number] Univers 15:20:00 15:20:00 JENNIFER ity [facility] 2020-09-10 2020-09-10 Visual Training Aide Florinda, Adc Lab Main [facility] 1.2.8 40.114 [id number] Univers 15:12:10 15:27:10 Visit Lindsey Olson 350.1.13.10 ity [place]7.2.[place] [phone] Mt dical nal 353 [facility] 2020-09-10 2020-09-10 Outpatient R [facility] [id number] -[id number] Univers 14:30:00 14:30:00 [id number] ity [facility] 2020-09-10 2020-09-10 Outpatient R [facility] [id number] Univers 14:30:00 14:30:00 [facility] 2020-[facility]10 2020-09-10 Orders Doctor FIOR 1.2.840.114 [id number] Univers 00:00:00 00:00:00 Only Unassigned, ARASELI 350.1.13.10 ity of [place] [facility] 4.2.7.2.686 Maulik as [phone] [facility] [address] 2020-07-31 2020-07-31 Patient Alphonso [facility] 1.2.840.114 [id number] Univers 00:00:00 00:00:00 Outreach Felix [facility] 350.1.13.10 i ty of [facility] 4.2.7.2.686 [place] [phone] Mt dical [address] 2020-05-31 2020-05-31 Outpatient [facility]o [facility] [phone] [facility] 09:07:00 09:07:00 _A_ 40151 Family Practic e 2020-05-21 2020-05-21 Zully [facility] [place] - [id number] V illage 00:00:00 00:00:00 Stephenie Burciaga Fam tash o, FUR GRADER: Medical - Practi ana [address] [email or web address]_ e [facility], [address] [place] [address], [place] [address] , Ph. 2020-05-04 2020-05-04 Hospital Unknown, [facility] 1.2.923.991 [id number] Univers 12:42:13 23:59:00 Encounter Attending Maximo 350.1.13.10 ity thea [place] 4.2.7.2.686 [facility] [phone] [facility] [address] [place] [address] 2020-05-04 2020-05-04 Outpatient R [facility] [id number] -[id number] Univers 13:00:00 13:00:00 [id number] ity [facility] 2020-05-04 2020-05-04 Outpatient R [facility] [id number] Univers 00:00:00 [facility]00[facility] 2020-04-12 2020-04-12 Outpatient Skinny-Genevieve [facility] [phone] [facility] 01:39:00 01:39:00 _A_AH 04694 Family Practic e 2020-04-07 2020-04-07 Outpatient R [facility] [id number] -[id number] Univers 00:00:00 00:00:00 [facility] [place] [facility] 2020-04-05 2020-04-05 Outpatient R [facility] [id number] [id number]-20 Univers 13:45:00 13:45:00 JAIDEN [id number] [facility] [place] [facility] 2020-04-05 2020-04-05 Outpatient [facility] 37155 [id number] Univers 13:45:00 13:45:00 JAIDEN [facility] [place] [facility] 2020-03-31 2020-03-31 Outpatient [facility] [id number] -[id number] Univers 14:00:00 14:00:00 [id number] [facility] [place] [facility] 2020-03-26 2020-03-26 Outpatient Skinny-Genevieve [facility] [phone] [facility] 09:11:00 09:11:00 _A_AH 87125 Family Practic e 2020-03-22 2020-03-22 Zully [facility] [place] - [id number] V illage 00:00:00 00:00:00 Stephenie [facility] Zac tash macias, FUR GRADER: Beverley - Stone perez [address] [email or web address], [place] [address], [place] [address] , Ph. 2020-03-05 2020-03-05 Outpatient Skinny-Mbayo VFP [facility] [address] [place] [address] 08:03:00 08:03:00 _A_AH 52306 Family Practic e 2020-02-25 2020-02-25 Outpatient Skinny-Mbayo [facility] [address] [place] [address] 10:26:00 10:26:00 _A_AH 76288 Family Practic e 2020-02-18 2020-02-18 Zully [facility]FP [place] - [id number] V illage 00:00:00 00:00:00 Stephenie [facility] Zac tash macias, FUR GRADER: Beverley - Stone perez [address] [email or web address], [address] [address] , Ph. 2020-01-06 2020-01-06 Outpatient Skinny-Mbayo VFP VFP 791 [facility]202 [facility] 06:59:00 06:59:00 _A_AH 31133 Family Practic e 2020-01-05 2020-01-05 Outpatient Skinny-Mbayo VFP [facility]FP 791 [id number] [facility] 11:05:00 11:05:00 _A_AH 71842 Family Practic e 2019-12-23 2019-12-23 Outpatient Skinny-Mbayo [facility]FP [facility] 791 4202 [facility] 09:02:00 09:02:00 _A_AH 80022 Family Practic e 2019-12-23 2019-12-23 Outpatient Skinny-Mbayo [facility] 791 [id number] [facility] 09:02:00 09:02:00 _A_AH 68481 Family Practic e 2019-12-18 2019-12-18 Zully [facility] [place] - [id number] V illage 00:00:00 00:00:00 Stephenie [facility] Zac tash macias, FUR GRADER: Medical Dejon Pracbridget perez [address] [email or web address], [address] [place] [address], [place] [address] , Ph. 2019-08-27 2019-08-27 Outpatient Glo [facility] [phone] [facility] 07:12:00 07:12:00 _A_ 19631 Family Practic e 2019-08-14 2019-08-14 Office Fabrice Ray [facility] 1.2.840.114 [id number] Univers 10:41:59 10:56:59 Visit Jaiden Luna 350.1.13.10 ity of Surgical 4.2.7.2.686 Maulik as Specialti [phone] Mt dical es [address] [facility] 2019-08-11 2019-08-11 Hospital [facility] 1.2.840.114 [id number] Univers 11:30:00 23:59:00 Encounter Jaiden Marsh 350.1.13.10 it[place] of [place]2.7.2.686 [place] [facility] [phone] [facility] [address] 2019-08-05 2019-08-05 Telephone [facility] 1.2.840.114 [id number] Univers 00:00:00 00:00:00 Jaiden [facility] 350.1.13.10 it y of Surgical 4.2.7.2.686 Maulik as Specialti [phone] Mt dical es [address] [facility] 2019-07-31 2019-07-31 Orders Doctor FIOR 1.2.840.114 [id number] Univers 00:00:00 00:00:00 Only Unassigned, ARASELI 350.1.13.10 [place] [facility] 4.2.7.2.686 Maulik as [phone] [facility] [address] 2019-07-03 2019-07-03 Orders Doctor FIOR 1.2.840.114 [id number] Univers 00:00:00 00:00:00 Only Unassigned, ARASELI 350.1.13.10 [place] [facility] 4.2.7.2.686 Maulik as [phone] [facility] [address] 2019-06-22 2019-06-22 Emergency [facility] [id number] Univers 09:39:07 12:04:[address] [facility] 2019-03-19 2019-03-19 Transition Paco Perez 1.2.840.114 [id number] Univers 00:00:00 00:00:00 of Care Kayleen Laboy 350.1.13.10 it y of [place]7.2.686 [place] [phone] [facility] [address] 2019-03-10 2019-03-18 Hospital Fariba Catnu [facility] 1.2.840.1 14 [id number] Univers 18:29:13 16:20:00 Encounter Taina Castro 350.1.13.10 ity thea [place].2.686 [place] [phone] [place] [address] Paicines Results Test Description Test Time Test Comments Results Result Comments Source Type and Screen - ONCE Routine 2021-04-06 14:01:27 Test Item Value Reference Range Interpretation Comme nts ABO & RH (test code = 20) A Positive Pe rformed at [facility] Laboratory Services - [facility] Blood [address] [place] [address]Toll Free: [phone] No. [id number] IAT (test code = 1185) Negative Perfo rmed at [facility] Laboratory [facility] - [facility] Blood [address] [place], [place] [address]Toll Free: [phone] No. [id number] [facility] / [id number] 13:58:55 Test Item Value Reference Range Interpretation Comments PROTIME PATIENT (test See_Comment H [Auto mated message] code = 5964-2) The system [employer] generated this result transmitted ref erence range: 10.1 - 1 2.6 Seconds. The reference range was not used to int erpret this result as normal/abnormal . INR (test code = 6301-6) Nor mal INR <1.1; Warfarin Therap eutic range 2.0 to 3. 0 or 2.5 to 3.5, dep ending upon the indica tions. Lab Interpretation (test Abnormal code = 93230-3) [facility] (31660)2021-04-06 13:30:35 Test Item Value Reference Range Interpretation Comments NA (test code = 132 mmol/L 135-145 L 0321555570) K (test code = 5.0 mmol/L 3.5-5.0 4430646431) CL (test code = 92 mmol/L 98-108 L 1398582489) CO2 TOTAL (test code = 33 mmol/L 23-31 H 3629623119) AGAP (test code = 2-16 0770414389) BUN (test code = 29 mg/dL 7-23 H 2361944086) GLUCOSE (test code = 156 mg/dL 70-110 H 5127331323) CREATININE (test code = 0.69 mg/dL 0.50-1.04 3139451413) TOTAL BILI (test code = 0.6 mg/dL 0.1-1.1 0100625128) CALCIUM (test code = 9.2 mg/dL 8.6-10.6 3592732576) T PROTEIN (test code = 6.8 g/dL 6.3-8.2 9359280806) ALBUMIN (test code = 3.8 g/dL 3.5-5.0 9268772728) ALK PHOS (test code = 120 U/L 34-122 3360447370) ALTv (test code = 19 U/L 5-35 1742-6) AST(SGOT) (test code = 23 U/L 13-40 4983527579) eGFR (test code = mL/min/1.73m2 1993727285) KENA (test code = KENA) Association of [...] tests). Lab Interpretation Abnormal (test code = 98029-0) [facility] WITH [id number] 13:21:51 Test Item Value Reference Range Interpretation Comments WBC (test code = See_Comment [Automated 2108-2) message] The sy stem which generated this result transmitted reference range : 4.30 - 11.10 10*3/?L. The reference range was not used to interpret this result as normal/abnormal . RBC (test code = See_Comment [Automated 379-8) message] The sy stem which generated this [...] RDW-SD (test code = 45.9 fL 39.0-49.9 22337-0) RDW-CV (test code = 14.7 % 12.0-15.5 788-0) PLT (test code = See_Comment [Automated 617-3) message] The sy stem which generated this result transmitted reference range : 166 - 358 10*3/ ?L. The reference r ilan was not used to interpret this result as normal/abnormal . MPV (test code = 10.8 fL 9.5-12.9 09850-4) NRBC/100 WBC (test See_Comment [Automat ed code = 6545820765) message] The system which generated this result transmitted reference range : 0.0 - 10.0 /100 WBCs. The refer ence range was not u sed to interpret th is result as normal/abnormal . NRBC x10^3 (test code <0.01 See_Comment [Auto mated = 4162304953) message] The s ystem which generated this result transmitted reference range : 10*3/?L. The reference range was not used to interpret this result as normal/abnormal . GRAN MAT (NEUT) % 60.7 % (test code = 770-8) IMM GRAN % (test code 1.00 % = 3376288303) LYMPH % (test code = 11.8 % 736-9) MONO % (test code = 11.2 % 5905-5) EOS % (test code = 14.9 % 713-8) BASO % (test code = 0.4 % 706-2) GRAN MAT x10^3(ANC) 3.09 10*3/uL 1.88-7.09 (test code = 5653844709) IMM GRAN x10^3 (test 0.05 10*3/uL 0.00-0.06 code = 6907532511) LYMPH x10^3 (test code 0.60 10*3/uL 1.32-3.29 L = 731-0) MONO x10^3 (test code 0.57 10*3/uL 0.33-0.92 = 742-7) EOS x10^3 (test code = 0.76 10*3/uL 0.03-0.39 H 711-2) BASO x10^3 (test code <0.03 0.01-0.07 = 704-7) Lab Interpretation Abnormal (test code = 81587-0) [facility]2021-03-29 17:01:45 Test Item Value Reference Range Interpretation Comments POCT GLU (test code = 5456185153) 199 mg/dL 70-110 H Lab Interpretation (test code = Abnormal 98777-7) [facility] GLUCOSE (AUTOMATED)2021-03-29 17:01:45 Test Item Value Reference Range Interpretation Comments POCT GLU (test code = 6806924490) 199 mg/dL 70-110 H Lab Interpretation (test code = Abnormal 59107-8) [facility], SERUM OR [id number] 15:24:42 Test Item Value Reference Range Interpretation Comments OSMOLALITY (test code = See_Comment [Au tomated message] 8587332575) The system [employer] generated this result transmitted ref erence range: 278 - 30 5 mOsm/kg. The re ference range was not u sed to interpret this result as normal/abnor mal. Lab Interpretation (test Normal code = 14865-8) [facility], SERUM OR [id number] 15:24:42 Test Item Value Reference Range Interpretation Comments OSMOLALITY (test code = See_Comment [Au tomated message] 2990645252) The system [employer] generated this result transmitted ref erence range: 278 - 30 5 mOsm/kg. The re ference range was not u sed to interpret this result as normal/abnor mal. Lab Interpretation (test Normal code = 37006-1) [facility] GLUCOSE (AUTOMATED)2021-03-29 13:38:41 Test Item Value Reference Range Interpretation Comments POCT GLU (test code = 1459532988) 170 mg/dL 70-110 H Lab Interpretation (test code = Abnormal 05147-1) [facility] GLUCOSE (AUTOMATED)2021-03-29 13:38:41 Test Item Value Reference Range Interpretation Comments POCT GLU (test code = 1418892570) 170 mg/dL 70-110 H Lab Interpretation (test code = Abnormal 30056-8) [facility] 11[facility]20:57 Test Item Value Reference Range Interpretation Comments MAGNESIUM (test code = 6481685601) 1.5 mg/dL 1.7-2.4 L Lab Interpretation (test code = Abnormal 10276-1) [facility] 11:20:57 Test Item Value Reference Range Interpretation Comments MAGNESIUM (test code = 2263698182) 1.5 mg/dL 1.7-2.4 L Lab Interpretation (test code = Abnormal 61312-7) [facility]. METABOLIC PANEL (07232)2021-03-29 11:20:42 Test Item Value Reference Range Interpretation Comments NA (test code = 131 mmol/L 135-145 L 2721541434) K (test code = 4.2 mmol/L 3.5-5.0 3674358213) CL (test code = 95 mmol/L 98-108 L 2362068985) CO2 TOTAL (test code = 29 mmol/L 23-31 0504806955) AGAP (test code = 2-16 5718840487) BUN (test code = 21 mg/dL 7-23 3797305407) GLUCOSE (test code = 200 mg/dL 70-110 H 6519654504) CREATININE (test code = 0.79 mg/dL 0.50-1.04 4226548207) TOTAL BILI (test code = 0.5 mg/dL 0.1-1.5 7853837985) CALCIUM (test code = 8.6 mg/dL 8.6-10.6 9828907977) T PROTEIN (test code = 6.2 g/dL 6.3-8.2 L 2210812958) ALBUMIN (test code = 3.1 g/dL 3.5-5.0 L 3518764329) ALK PHOS (test code = 112 U/L 34-122 8026941279) ALTv (test code = 14 U/L 5-35 1742-6) AST(SGOT) (test code = 17 U/L 13-40 2884887568) eGFR (test code = mL/min/1.73m2 5180036595) KENA (test code = KENA) Association of [...] tests). Lab Interpretation Abnormal (test code = 52436-2) [facility] 11:20:42 Test Item Value Reference Range Interpretation Comments PHOSPHORUS (test code = 4368145536) 3.6 mg/dL 2.5-5.0 Lab Interpretation (test code = Normal 16827-5) [facility] (21892)2021-03-29 11:20:42 Test Item Value Reference Range Interpretation Comments NA (test code = 131 mmol/L 135-145 L 6442275586) K (test code = 4.2 mmol/L 3.5-5.0 5994765864) CL (test code = 95 mmol/L 98-108 L 3542655462) CO2 TOTAL (test code = 29 mmol/L 23-31 7332139904) AGAP (test code = 2-16 8714332967) BUN (test code = 21 mg/dL 7-23 9327085158) GLUCOSE (test code = 200 mg/dL 70-110 H 0147172582) CREATININE (test code = 0.79 mg/dL 0.50-1.04 1016106136) TOTAL BILI (test code = 0.5 mg/dL 0.1-1.2 5178305267) CALCIUM (test code = 8.6 mg/dL 8.6-10.6 3939013043) T PROTEIN (test code = 6.2 g/dL 6.3-8.2 L 8548371619) ALBUMIN (test code = 3.1 g/dL 3.5-5.0 L 8212601036) ALK PHOS (test code = 112 U/L 34-122 7040224155) ALTv (test code = 14 U/L 5-35 1742-6) AST(SGOT) (test code = 17 U/L 13-40 3979739562) eGFR (test code = mL/min/1.73m2 1132158710) KENA (test code = KENA) Association of [...] tests). Lab Interpretation Abnormal (test code = 03955-7) [facility] 11:20:42 Test Item Value Reference Range Interpretation Comments PHOSPHORUS (test code = 2693927154) 3.6 mg/dL 2.5-5.0 Lab Interpretation (test code = Normal 65188-3) [facility] [id number] 11:20:41 Test Item Value Reference Range Interpretation Comments URIC ACID (test code = 5680311924) 3.6 mg/dL 2.9-6.0 Lab Interpretation (test code = Normal 36192-3) [facility] [id number] 11:20:41 Test Item Value Reference Range Interpretation Comments URIC ACID (test code = 6393743748) 3.6 mg/dL 2.9-6.0 Lab Interpretation (test code = Normal 70406-1) [facility] GLUCOSE (AUTOMATED)2021-03-29 01:28:01 Test Item Value Reference Range Interpretation Comments POCT GLU (test code = 3386983699) 170 mg/dL 70-110 H Lab Interpretation (test code = Abnormal 46715-4) [facility] GLUCOSE (AUTOMATED)2021-03-29 01:28:01 Test Item Value Reference Range Interpretation Comments POCT GLU (test code = 3344080424) 170 mg/dL 70-110 H Lab Interpretation (test code = Abnormal 89394-8) [facility] GLUCOSE (AUTOMATED)2021-03-28 21:52:00 Test Item Value Reference Range Interpretation Comments POCT GLU (test code = 1939869029) 215 mg/dL 70-110 H Lab Interpretation (test code = Abnormal 58496-4) [facility] GLUCOSE (AUTOMATED)2021-03-28 21:52:00 Test Item Value Reference Range Interpretation Comments POCT GLU (test code = 8927819580) 215 mg/dL 70-110 H Lab Interpretation (test code = Abnormal 61340-7) [facility] GLUCOSE (AUTOMATED)2021-03-28 16:45:57 Test Item Value Reference Range Interpretation Comments POCT GLU (test code = 4440625031) 244 mg/dL 70-110 H Lab Interpretation (test code = Abnormal 58608-9) [facility] GLUCOSE (AUTOMATED)2021-03-28 16:45:57 Test Item Value Reference Range Interpretation Comments POCT GLU (test code = 2189574808) 244 mg/dL 70-110 H Lab Interpretation (test code = Abnormal 31537-2) [facility] GLUCOSE (AUTOMATED)2021-03-28 12:31:07 Test Item Value Reference Range Interpretation Comments POCT GLU (test code = 1553711634) 176 mg/dL 70-110 H Lab Interpretation (test code = Abnormal 65240-3) [facility]2021-03-28 12:31:07 Test Item Value Reference Range Interpretation Comments POCT GLU (test code = 9649330569) 176 mg/dL 70-110 H Lab Interpretation (test code = Abnormal 20056-4) [facility] METABOLIC PANEL (NA, K, CL, CO2, GLUCOSE, BUN, CREATININE, CA)2021-03-28 12:03:59 Test Item Value Reference Range Interpretation Comments NA (test code = 128 mmol/L 135-145 L 6343191445) K (test code = 4.4 mmol/L 3.5-5.0 1683358026) CL (test code = 92 mmol/L 98-108 L 3219467612) CO2 TOTAL (test code = 29 mmol/L 23-31 9015088108) AGAP (test code = 2-16 4633402117) BUN (test code = 22 mg/dL 7-23 0086973878) GLUCOSE (test code = 166 mg/dL 70-110 H 0419280053) CREATININE (test code = 0.72 mg/dL 0.50-1.04 0077007866) CALCIUM (test code = 8.9 mg/dL 8.6-10.6 9219937644) eGFR (test code = mL/min/1.73m2 2708244663) KENA (test code = KENA) Association of [...] tests). Lab Interpretation Abnormal (test code = 50475-5) [facility] (NA, K, CL, CO2, GLUCOSE, BUN, CREATININE, CA)2021-03-28 12:03:59 Test Item Value Reference Range Interpretation Comments NA (test code = 128 mmol/L 135-145 L 0412439890) K (test code = 4.4 mmol/L 3.5-5.0 7281468244) CL (test code = 92 mmol/L 98-108 L 9604805744) CO2 TOTAL (test code = 29 mmol/L 23-31 9385549387) AGAP (test code = 2-16 0544726975) BUN (test code = 22 mg/dL 7-23 4015634570) GLUCOSE (test code = 166 mg/dL 70-110 H 1059681829) CREATININE (test code = 0.72 mg/dL 0.50-1.04 3383864504) CALCIUM (test code = 8.9 mg/dL 8.6-10.6 4358680561) eGFR (test code = mL/min/1.73m2 2859429427) KENA (test code = KENA) Association of [...] tests). Lab Interpretation Abnormal (test code = 09872-8) [facility] WITH [id number] 11:35:36 Test Item Value Reference Range Interpretation Comments WBC (test code = See_Comment [Automated 7849-2) message] The sy stem which generated this result transmitted reference range : 4.30 - 11.10 10*3/?L. The reference range was not used to interpret this result as normal/abnormal . RBC (test code = See_Comment [Automated 177-8) message] The sy stem which generated this [...] RDW-SD (test code = 44.0 fL 39.0-49.9 21577-5) RDW-CV (test code = 14.4 % 12.0-15.5 788-0) PLT (test code = See_Comment [Automated 777-3) message] The sy stem which generated this result transmitted reference range : 166 - 358 10*3/ ?L. The reference r ilan was not used to interpret this result as normal/abnormal . MPV (test code = 11.8 fL 9.5-12.9 91528-2) NRBC/100 WBC (test See_Comment [Automat ed code = 6216993441) message] The system which generated this result transmitted reference range : 0.0 - 10.0 /100 WBCs. The refer ence range was not u sed to interpret th is result as normal/abnormal . NRBC x10^3 (test code <0.01 See_Comment [Auto mated = 7933149602) message] The s ystem which generated this result transmitted reference range : 10*3/?L. The reference range was not used to interpret this result as normal/abnormal . GRAN MAT (NEUT) % 77.3 % (test code = 770-8) IMM GRAN % (test code 1.10 % = 7714024081) LYMPH % (test code = 6.7 % 736-9) MONO % (test code = 10.5 % 5905-5) EOS % (test code = 4.1 % 713-8) BASO % (test code = 0.3 % 706-2) GRAN MAT x10^3(ANC) 5.09 10*3/uL 1.88-7.09 (test code = 3073509365) IMM GRAN x10^3 (test 0.07 10*3/uL 0.00-0.06 H code = 7615957968) LYMPH x10^3 (test code 0.44 10*3/uL 1.32-3.29 L = 731-0) MONO x10^3 (test code 0.69 10*3/uL 0.33-0.92 = 742-7) EOS x10^3 (test code = 0.27 10*3/uL 0.03-0.39 711-2) BASO x10^3 (test code <0.03 0.01-0.07 = 704-7) Lab Interpretation Abnormal (test code = 97153-4) [facility] WITH [id number] 11:35:36 Test Item Value Reference Range Interpretation [...] RDW-SD (test code = 44.0 fL 39.0-49.9 30075-1) RDW-CV (test code = 14.4 % 12.0-15.5 788-0) PLT (test code = See_Comment [Automated 777-3) message] The sy stem which generated this result transmitted reference range : 166 - 358 10*3/ ?L. The reference r ilan was not used to interpret this result as normal/abnormal . MPV (test code = 11.8 fL 9.5-12.9 84278-3) NRBC/100 WBC (test See_Comment [Automat ed code = 7017195636) message] The system which generated this result transmitted reference range : 0.0 - 10.0 /100 WBCs. The refer ence range was not u sed to interpret th is result as normal/abnormal . NRBC x10^3 (test code <0.01 See_Comment [Auto mated = 4709624070) message] The s ystem which generated this result transmitted reference range : 10*3/?L. The reference range was not used to interpret this result as normal/abnormal . GRAN MAT (NEUT) % 77.3 % (test code = 770-8) IMM GRAN % (test code 1.10 % = 2318437416) LYMPH % (test code = 6.7 % 736-9) MONO % (test code = 10.5 % 5905-5) EOS % (test code = 4.1 % 713-8) BASO % (test code = 0.3 % 706-2) GRAN MAT x10^3(ANC) 5.09 10*3/uL 1.88-7.09 (test code = [id number]) IMM GRAN x10^3 (test 0.07 10*3/uL 0.00-0.06 H code = [id number]) LYMPH x10^3 (test code 0.44 10*3/uL 1.32-3.29 L = 731-0) MONO x10^3 (test code 0.69 10*3/uL 0.33-0.92 = 742-7) EOS x10^3 (test code = 0.27 10*3/uL 0.03-0.39 711-2) BASO x10^3 (test code <0.03 0.01-0.07 = 704-7) Lab Interpretation Abnormal (test code = 91776-1) [facility] GLUCOSE (AUTOMATED)2021-03-28 02:02:37 Test Item Value Reference Range Interpretation Comments POCT GLU (test code = [id number]) 181 mg/dL 70-110 H Lab Interpretation (test code = Abnormal 95873-3) [facility] GLUCOSE (AUTOMATED)2021-03-28 02:02:37 Test Item Value Reference Range Interpretation Comments POCT GLU (test code = 0995974387) 181 mg/dL 70-110 H Lab Interpretation (test code = Abnormal 20106-4) [facility] GLUCOSE (AUTOMATED)2021-03-27 23:16:42 Test Item Value Reference Range Interpretation Comments POCT GLU (test code = 2514588186) 304 mg/dL 70-110 H Lab Interpretation (test code = Abnormal 55185-5) [facility] GLUCOSE (AUTOMATED)2021-03-27 23:16:42 Test Item Value Reference Range Interpretation Comments POCT GLU (test code = 6151697324) 304 mg/dL 70-110 H Lab Interpretation (test code = Abnormal 47179-1) [facility] GLUCOSE (AUTOMATED)2021-03-27 19:16:32 Test Item Value Reference Range Interpretation Comments POCT GLU (test code = 0413965259) 132 mg/dL 70-110 H Lab Interpretation (test code = Abnormal 86738-0) [facility] GLUCOSE (AUTOMATED)2021-03-27 19:16:32 Test Item Value Reference Range Interpretation Comments POCT GLU (test code = 9167605207) 132 mg/dL 70-110 H Lab Interpretation (test code = Abnormal 24157-1) [facility] GLUCOSE (AUTOMATED)2021-03-27 13:16:16 Test Item Value Reference Range Interpretation Comments POCT GLU (test code = 5694000399) 198 mg/dL 70-110 H Lab Interpretation (test code = Abnormal 81405-8) [facility] GLUCOSE (AUTOMATED)2021-03-27 13:16:16 Test Item Value Reference Range Interpretation Comments POCT GLU (test code = 7955203439) 198 mg/dL 70-110 H Lab Interpretation (test code = Abnormal 76197-8) [facility] METABOLIC PANEL (NA, K, CL, CO2, GLUCOSE, BUN, CREATININE, CA)2021-03-27 12:53:08 Test Item Value Reference Range Interpretation Comments NA (test code = 129 mmol/L 135-145 L 7631035154) K (test code = 4.4 mmol/L 3.5-5.0 3141235459) CL (test code = 91 mmol/L 98-108 L 5601075107) CO2 TOTAL (test code = 33 mmol/L 23-31 H 9926904852) AGAP (test code = 2-16 6642104514) BUN (test code = 22 mg/dL 7-23 6312487882) GLUCOSE (test code = 197 mg/dL 70-110 H 6829952904) CREATININE (test code = 0.79 mg/dL 0.50-1.04 0937204530) CALCIUM (test code = 8.9 mg/dL 8.6-10.6 9160743108) eGFR (test code = mL/min/1.73m2 9642243073) KENA (test code = KENA) Association of [...] tests). Lab Interpretation Abnormal (test code = 30794-1) [facility] METABOLIC PANEL (NA, K, CL, CO2, GLUCOSE, BUN, CREATININE, CA)2021-03-27 12:53:08 Test Item Value Reference Range Interpretation Comments NA (test code = 129 mmol/L 135-145 L 7491906686) K (test code = 4.4 mmol/L 3.5-5.0 9665503539) CL (test code = 91 mmol/L 98-108 L 9939241360) CO2 TOTAL (test code = 33 mmol/L 23-31 H 0673302761) AGAP (test code = 2-16 6483232987) BUN (test code = 22 mg/dL 7-23 9900156474) GLUCOSE (test code = 197 mg/dL 70-110 H 9787442970) CREATININE (test code = 0.79 mg/dL 0.50-1.04 5445541755) CALCIUM (test code = 8.9 mg/dL 8.6-10.6 0162228872) eGFR (test code = mL/min/1.73m2 5406974058) KENA (test code = KENA) Association of [...] tests). Lab Interpretation Abnormal (test code = 57994-6) [facility] WITH [id number] 12:23:50 Test Item Value Reference Range Interpretation Comments WBC (test code = See_Comment [Automated 5608-2) message] The sy stem which generated this result transmitted reference range : 4.30 - 11.10 10*3/?L. The reference range was not used to interpret this result as normal/abnormal . RBC (test code = See_Comment [Automated 447-8) message] The sy stem which generated this [...] RDW-SD (test code = 44.0 fL 39.0-49.9 12448-9) RDW-CV (test code = 14.2 % 12.0-15.5 788-0) PLT (test code = See_Comment [Automated 777-3) message] The sy stem which generated this result transmitted reference range : 166 - 358 10*3/ ?L. The reference r ilan was not used to interpret this result as normal/abnormal . MPV (test code = 11.4 fL 9.5-12.9 13468-6) NRBC/100 WBC (test See_Comment [Automat ed code = 8861436429) message] The system which generated this result transmitted reference range : 0.0 - 10.0 /100 WBCs. The refer ence range was not u sed to interpret th is result as normal/abnormal . NRBC x10^3 (test code <0.01 See_Comment [Auto mated = 8366315368) message] The s ystem which generated this result transmitted reference range : 10*3/?L. The reference range was not used to interpret this result as normal/abnormal . GRAN MAT (NEUT) % 77.0 % (test code = 770-8) IMM GRAN % (test code 1.80 % = 0393447576) LYMPH % (test code = 6.6 % 736-9) MONO % (test code = 9.9 % 5905-5) EOS % (test code = 4.4 % 713-8) BASO % (test code = 0.3 % 706-2) GRAN MAT x10^3(ANC) 4.77 10*3/uL 1.88-7.09 (test code = 4569895553) IMM GRAN x10^3 (test 0.11 10*3/uL 0.00-0.06 H code = 4430969164) LYMPH x10^3 (test code 0.41 10*3/uL 1.32-3.29 L = 731-0) MONO x10^3 (test code 0.61 10*3/uL 0.33-0.92 = 742-7) EOS x10^3 (test code = 0.27 10*3/uL 0.03-0.39 711-2) BASO x10^3 (test code <0.03 0.01-0.07 = 704-7) Lab Interpretation Abnormal (test code = 62354-8) [facility] WITH [id number] 12:23:50 Test Item Value Reference Range Interpretation Comments WBC (test code = See_Comment [Automated 9490-2) message] The sy stem which generated this result transmitted reference range : 4.30 - 11.10 10*3/?L. The reference range was not used to interpret this result as normal/abnormal . RBC (test code = See_Comment [Automated 219-8) message] The sy stem which generated this [...] RDW-SD (test code = 44.0 fL 39.0-49.9 95429-4) RDW-CV (test code = 14.2 % 12.0-15.5 788-0) PLT (test code = See_Comment [Automated 897-3) message] The sy stem which generated this result transmitted reference range : 166 - 358 10*3/ ?L. The reference r ilan was not used to interpret this result as normal/abnormal . MPV (test code = 11.4 fL 9.5-12.9 07180-1) NRBC/100 WBC (test See_Comment [Automat ed code = 2496811732) message] The system which generated this result transmitted reference range : 0.0 - 10.0 /100 WBCs. The refer ence range was not u sed to interpret th is result as normal/abnormal . NRBC x10^3 (test code <0.01 See_Comment [Auto mated = 1571517336) message] The s ystem which generated this result transmitted reference range : 10*3/?L. The reference range was not used to interpret this result as normal/abnormal . GRAN MAT (NEUT) % 77.0 % (test code = 770-8) IMM GRAN % (test code 1.80 % = 5712731957) LYMPH % (test code = 6.6 % 736-9) MONO % (test code = 9.9 % 5905-5) EOS % (test code = 4.4 % 713-8) BASO % (test code = 0.3 % 706-2) GRAN MAT x10^3(ANC) 4.77 10*3/uL 1.88-7.09 (test code = 2837703533) IMM GRAN x10^3 (test 0.11 10*3/uL 0.00-0.06 H code = 1052727256) LYMPH x10^3 (test code 0.41 10*3/uL 1.32-3.29 L = 731-0) MONO x10^3 (test code 0.61 10*3/uL 0.33-0.92 = 742-7) EOS x10^3 (test code = 0.27 10*3/uL 0.03-0.39 711-2) BASO x10^3 (test code <0.03 0.01-0.07 = 704-7) Lab Interpretation Abnormal (test code = 98525-4) [facility] GLUCOSE (AUTOMATED)2021-03-27 11:45:51 Test Item Value Reference Range Interpretation Comments POCT GLU (test code = 212 mg/dL 70-110 H Notifi ed Provider [id number]) Lab Interpretation (test Abnormal code = 31967-0) [facility] 11:45:51 Test Item Value Reference Range Interpretation Comments POCT GLU (test code = 212 mg/dL 70-110 H Notifi ed Provider [id number]) Lab Interpretation (test Abnormal code = 41066-7) [facility] 23:44:19 Test Item Value Reference Range Interpretation Comments POCT GLU (test code = 4749412817) 234 mg/dL 70-110 H Lab Interpretation (test code = Abnormal 40166-1) [facility] 23:44:19 Test Item Value Reference Range Interpretation Comments POCT GLU (test code = 7041742272) 234 mg/dL 70-110 H Lab Interpretation (test code = Abnormal 18686-7) [facility] 22:48:08 Test Item Value Reference Range Interpretation Comments POCT GLU (test code = 4861599113) 225 mg/dL 70-110 H Lab Interpretation (test code = Abnormal 86981-6) [facility] 22:48:08 Test Item Value Reference Range Interpretation Comments POCT GLU (test code = 1968017440) 225 mg/dL 70-110 H Lab Interpretation (test code = Abnormal 64940-3) [facility] GLUCOSE (AUTOMATED)2021-03-26 17:15:22 Test Item Value Reference Range Interpretation Comments POCT GLU (test code = 1543908740) 189 mg/dL 70-110 H Lab Interpretation (test code = Abnormal 12272-9) [facility] GLUCOSE (AUTOMATED)2021-03-26 17:15:22 Test Item Value Reference Range Interpretation Comments POCT GLU (test code = 6140585654) 189 mg/dL 70-110 H Lab Interpretation (test code = Abnormal 30983-3) [facility] GLUCOSE (AUTOMATED)2021-03-26 13:14:34 Test Item Value Reference Range Interpretation Comments POCT GLU (test code = 6805140179) 187 mg/dL 70-110 H Lab Interpretation (test code = Abnormal 74685-3) [facility] GLUCOSE (AUTOMATED)2021-03-26 13:14:34 Test Item Value Reference Range Interpretation Comments POCT GLU (test code = 3202037891) 187 mg/dL 70-110 H Lab Interpretation (test code = Abnormal 87281-8) [facility] GLUCOSE (AUTOMATED)2021-03-25 22:03:35 Test Item Value Reference Range Interpretation Comments POCT GLU (test code = 8093833287) 161 mg/dL 70-110 H Lab Interpretation (test code = Abnormal 01433-5) [facility] GLUCOSE (AUTOMATED)2021-03-25 22:03:35 Test Item Value Reference Range Interpretation Comments POCT GLU (test code = 4545084173) 161 mg/dL 70-110 H Lab Interpretation (test code = Abnormal 92824-1) [facility] GLUCOSE (AUTOMATED)2021-03-25 16:12:14 Test Item Value Reference Range Interpretation Comments POCT GLU (test code = 7370692251) 182 mg/dL 70-110 H Lab Interpretation (test code = Abnormal 85637-3) [facility] GLUCOSE (AUTOMATED)2021-03-25 16:12:14 Test Item Value Reference Range Interpretation Comments POCT GLU (test code = 1680312694) 182 mg/dL 70-110 H Lab Interpretation (test code = Abnormal 25785-1) [facility] GLUCOSE (AUTOMATED)2021-03-25 13:37:16 Test Item Value Reference Range Interpretation Comments POCT GLU (test code = 0487570866) 140 mg/dL 70-110 H Lab Interpretation (test code = Abnormal 03216-5) [facility] GLUCOSE (AUTOMATED)2021-03-25 13:37:16 Test Item Value Reference Range Interpretation Comments POCT GLU (test code = 3131221262) 140 mg/dL 70-110 H Lab Interpretation (test code = Abnormal 01063-8) [facility] METABOLIC PANEL (NA, K, CL, CO2, GLUCOSE, BUN, CREATININE, CA)2021-03-25 11:51:11 Test Item Value Reference Range Interpretation Comments NA (test code = 130 mmol/L 135-145 L 3504390200) K (test code = 4.3 mmol/L 3.5-5.0 3023892427) CL (test code = 93 mmol/L 98-108 L 0975055502) CO2 TOTAL (test code = 31 mmol/L 23-31 3003766461) AGAP (test code = 2-16 5325681248) BUN (test code = 25 mg/dL 7-23 H 9197513145) GLUCOSE (test code = 141 mg/dL 70-110 H 0019736486) CREATININE (test code = 0.80 mg/dL 0.50-1.04 0281690429) CALCIUM (test code = 8.9 mg/dL 8.6-10.6 5039604677) eGFR (test code = mL/min/1.73m2 9753626518) KENA (test code = KENA) Association of [...] tests). Lab Interpretation Abnormal (test code = 55254-9) [facility] METABOLIC PANEL (NA, K, CL, CO2, GLUCOSE, BUN, CREATININE, CA)2021-03-25 11:51:11 Test Item Value Reference Range Interpretation Comments NA (test code = 130 mmol/L 135-145 L 0991333936) K (test code = 4.3 mmol/L 3.5-5.0 4184360954) CL (test code = 93 mmol/L 98-108 L 5205062524) CO2 TOTAL (test code = 31 mmol/L 23-31 3782142586) AGAP (test code = 2-16 1945894042) BUN (test code = 25 mg/dL 7-23 H 6052537445) GLUCOSE (test code = 141 mg/dL 70-110 H 3218478725) CREATININE (test code = 0.80 mg/dL 0.50-1.04 3217573734) CALCIUM (test code = 8.9 mg/dL 8.6-10.6 0174284352) eGFR (test code = mL/min/1.73m2 4041671238) KENA (test code = KENA) Association of [...] tests). Lab Interpretation Abnormal (test code = 46366-3) [facility] WITH [id number] 11:28:10 Test Item Value Reference Range Interpretation [...] RDW-SD (test code = 45.0 fL 39.0-49.9 10303-6) RDW-CV (test code = 14.5 % 12.0-15.5 788-0) PLT (test code = See_Comment [Automated 777-3) message] The sy stem which generated this result transmitted reference range : 166 - 358 10*3/ ?L. The reference r ilan was not used to interpret this result as normal/abnormal . MPV (test code = 11.6 fL 9.5-12.9 53729-1) NRBC/100 WBC (test See_Comment [Automat ed code = 2364582843) message] The system which generated this result transmitted reference range : 0.0 - 10.0 /100 WBCs. The refer ence range was not u sed to interpret th is result as normal/abnormal . NRBC x10^3 (test code <0.01 See_Comment [Auto mated = 9180066051) message] The s ystem which generated this result transmitted reference range : 10*3/?L. The reference range was not used to interpret this result as normal/abnormal . GRAN MAT (NEUT) % 71.9 % (test code = 770-8) IMM GRAN % (test code 1.00 % = 4546488189) LYMPH % (test code = 8.2 % 736-9) MONO % (test code = 10.5 % 5905-5) EOS % (test code = 8.0 % 713-8) BASO % (test code = 0.4 % 706-2) GRAN MAT x10^3(ANC) 3.51 10*3/uL 1.88-7.09 (test code = 4880813253) IMM GRAN x10^3 (test 0.05 10*3/uL 0.00-0.06 code = 2225659078) LYMPH x10^3 (test code 0.40 10*3/uL 1.32-3.29 L = 731-0) MONO x10^3 (test code 0.51 10*3/uL 0.33-0.92 = 742-7) EOS x10^3 (test code = 0.39 10*3/uL 0.03-0.39 711-2) BASO x10^3 (test code <0.03 0.01-0.07 = 704-7) Lab Interpretation Abnormal (test code = 43886-8) [facility] WITH [id number] 11:28:10 Test Item Value Reference Range Interpretation Comments WBC (test code = See_Comment [Automated 2990-2) message] The sy stem which generated this result transmitted reference range : 4.30 - 11.10 10*3/?L. The reference range was not used to interpret this result as normal/abnormal . RBC (test code = See_Comment [Automated 286-8) message] The sy stem which generated this [...] RDW-SD (test code = 45.0 fL 39.0-49.9 78745-0) RDW-CV (test code = 14.5 % 12.0-15.5 788-0) PLT (test code = See_Comment [Automated 777-3) message] The sy stem which generated this result transmitted reference range : 166 - 358 10*3/ ?L. The reference r ilan was not used to interpret this result as normal/abnormal . MPV (test code = 11.6 fL 9.5-12.9 91802-8) NRBC/100 WBC (test See_Comment [Automat ed code = 2523459387) message] The system which generated this result transmitted reference range : 0.0 - 10.0 /100 WBCs. The refer ence range was not u sed to interpret th is result as normal/abnormal . NRBC x10^3 (test code <0.01 See_Comment [Auto mated = 0712185548) message] The s ystem which generated this result transmitted reference range : 10*3/?L. The reference range was not used to interpret this result as normal/abnormal . GRAN MAT (NEUT) % 71.9 % (test code = 770-8) IMM GRAN % (test code 1.00 % = 5074035919) LYMPH % (test code = 8.2 % 736-9) MONO % (test code = 10.5 % 5905-5) EOS % (test code = 8.0 % 713-8) BASO % (test code = 0.4 % 706-2) GRAN MAT x10^3(ANC) 3.51 10*3/uL 1.88-7.09 (test code = 5975567128) IMM GRAN x10^3 (test 0.05 10*3/uL 0.00-0.06 code = 3534527995) LYMPH x10^3 (test code 0.40 10*3/uL 1.32-3.29 L = 731-0) MONO x10^3 (test code 0.51 10*3/uL 0.33-0.92 = 742-7) EOS x10^3 (test code = 0.39 10*3/uL 0.03-0.39 711-2) BASO x10^3 (test code <0.03 0.01-0.07 = 704-7) Lab Interpretation Abnormal (test code = 24103-7) [facility] GLUCOSE (AUTOMATED)2021-03-25 01:35:21 Test Item Value Reference Range Interpretation Comments POCT GLU (test code = 4607996154) 209 mg/dL 70-110 H Lab Interpretation (test code = Abnormal 57914-6) [facility] GLUCOSE (AUTOMATED)2021-03-25 01:35:21 Test Item Value Reference Range Interpretation Comments POCT GLU (test code = 7547115659) 209 mg/dL 70-110 H Lab Interpretation (test code = Abnormal 11830-4) [facility] GLUCOSE (AUTOMATED)2021-03-24 21:36:03 Test Item Value Reference Range Interpretation Comments POCT GLU (test code = 9085706079) 235 mg/dL 70-110 H Lab Interpretation (test code = Abnormal 14408-2) [facility] GLUCOSE (AUTOMATED)2021-03-24 21:36:03 Test Item Value Reference Range Interpretation Comments POCT GLU (test code = 6789395465) 151 mg/dL 70-110 H Lab Interpretation (test code = Abnormal 38535-3) [facility] GLUCOSE (AUTOMATED)2021-03-24 21:36:03 Test Item Value Reference Range Interpretation Comments POCT GLU (test code = 3746611137) 235 mg/dL 70-110 H Lab Interpretation (test code = Abnormal 11939-4) [facility] GLUCOSE (AUTOMATED)2021-03-24 21:36:03 Test Item Value Reference Range Interpretation Comments POCT GLU (test code = 3688407027) 151 mg/dL 70-110 H Lab Interpretation (test code = Abnormal 34456-8) [facility] GLUCOSE (AUTOMATED)2021-03-24 21:29:46 Test Item Value Reference Range Interpretation Comments POCT GLU (test code = 6525041713) 265 mg/dL 70-110 H Lab Interpretation (test code = Abnormal 94671-8) [facility] GLUCOSE (AUTOMATED)2021-03-24 21:29:46 Test Item Value Reference Range Interpretation Comments POCT GLU (test code = 0682102007) 265 mg/dL 70-110 H Lab Interpretation (test code = Abnormal 96322-3) [facility] GLUCOSE (AUTOMATED)2021-03-24 17:05:33 Test Item Value Reference Range Interpretation Comments POCT GLU (test code = 8828054541) 220 mg/dL 70-110 H Lab Interpretation (test code = Abnormal 71690-9) [facility] GLUCOSE (AUTOMATED)2021-03-24 17:05:33 Test Item Value Reference Range Interpretation Comments POCT GLU (test code = 7369685317) 220 mg/dL 70-110 H Lab Interpretation (test code = Abnormal 30342-5) [facility] GLUCOSE (AUTOMATED)2021-03-23 22:37:27 Test Item Value Reference Range Interpretation Comments POCT GLU (test code = 9219019952) 244 mg/dL 70-110 H Lab Interpretation (test code = Abnormal 25432-7) [facility] GLUCOSE (AUTOMATED)2021-03-23 22:37:27 Test Item Value Reference Range Interpretation Comments POCT GLU (test code = 1469271941) 244 mg/dL 70-110 H Lab Interpretation (test code = Abnormal 00000-7) [id number] 16:03:03 Test Item Value Reference Interpretation Comments Range TROPONIN I (test 0.003 ng/mL See_Comment [Automated code = 0267351523) message] The system which generated this result [...] biotin. Lab Interpretation Normal (test code = 46247-6) [facility] [id number] 16:03:03 Test Item Value Reference Interpretation Comments Range TROPONIN I (test 0.003 ng/mL See_Comment [Automated code = 1330411005) message] The system which generated this result [...] biotin. Lab Interpretation Normal (test code = 38173-8) [id number] 15:59:37 Test Item Value Reference Range Interpretation Comments NT-proBNP (test code 1390 pg/mL See_Comment H [Autom ated = 5542125534) message] The system which generated this result transmitted reference range : <=450. The reference range was not used to interpret this result as normal/abnormal . KENA (test code = KENA) Biotin has been reported to cause a negative bias, interpret results relative to patient's use of biotin. Lab Interpretation Abnormal (test code = 15813-9) [facility] [id number] 15:59:37 Test Item Value Reference Range Interpretation Comments NT-proBNP (test code 1390 pg/mL See_Comment H [Autom ated = 4078265456) message] The system which generated this result transmitted reference range : <=450. The reference range was not used to interpret this result as normal/abnormal . KENA (test code = KENA) Biotin has been reported to cause a negative bias, interpret results relative to patient's use of biotin. Lab Interpretation Abnormal (test code = 71909-0) [facility] METABOLIC PANEL (03705)2021-03-23 15:51:33 Test Item Value Reference Range Interpretation Comments NA (test code = 132 mmol/L 135-145 L 5859326332) K (test code = 4.5 mmol/L 3.5-5.0 7575610244) CL (test code = 95 mmol/L 98-108 L 2308117518) CO2 TOTAL (test code = 28 mmol/L 23-31 9219523734) AGAP (test code = 2-16 9931088925) BUN (test code = 23 mg/dL 7-23 5788596823) GLUCOSE (test code = 295 mg/dL 70-110 H 9900253679) CREATININE (test code = 0.79 mg/dL 0.50-1.04 6448985192) TOTAL BILI (test code = 0.9 mg/dL 0.1-1.9 2024451862) CALCIUM (test code = 8.8 mg/dL 8.6-10.6 2354372573) T PROTEIN (test code = 7.1 g/dL 6.3-8.2 5194476966) ALBUMIN (test code = 3.8 g/dL 3.5-5.0 4919331388) ALK PHOS (test code = 135 U/L 34-122 H 0160816539) ALTv (test code = 21 U/L 5-35 1742-6) AST(SGOT) (test code = 25 U/L 13-40 4622821683) eGFR (test code = mL/min/1.73m2 0432435457) KENA (test code = KENA) Association of [...] tests). Lab Interpretation Abnormal (test code = 12208-7) [facility] (10101[facility]2021-03-23 15:51:33 Test Item Value Reference Range Interpretation Comments NA (test code = 132 mmol/L 135-145 L 0084365484) K (test code = 4.5 mmol/L 3.5-5.0 1111391100) CL (test code = 95 mmol/L 98-108 L 9153136267) CO2 TOTAL (test code = 28 mmol/L 23-31 7146691184) AGAP (test code = 2-16 7758264046) BUN (test code = 23 mg/dL 7-23 3172236172) GLUCOSE (test code = 295 mg/dL 70-110 H 8197989130) CREATININE (test code = 0.79 mg/dL 0.50-1.04 7554699318) TOTAL BILI (test code = 0.9 mg/dL 0.1-1.7 2163648261) CALCIUM (test code = 8.8 mg/dL 8.6-10.6 8170325132) T PROTEIN (test code = 7.1 g/dL 6.3-8.2 6175665014) ALBUMIN (test code = 3.8 g/dL 3.5-5.0 4768916898) ALK PHOS (test code = 135 U/L 34-122 H 7085313122) ALTv (test code = 21 U/L 5-35 1742-6) AST(SGOT) (test code = 25 U/L 13-40 4741829364) eGFR (test code = mL/min/1.73m2 9757395104) KENA (test code = KENA) Association of [...] tests). Lab Interpretation Abnormal (test code = 93389-6) [facility] WITH [id number] 15:39:13 Test Item Value Reference Range Interpretation Comments WBC (test code = See_Comment [Automated 4500-2) message] The sy stem which generated this result transmitted reference range : 4.30 - 11.10 10*3/?L. The reference range was not used to interpret this result as normal/abnormal . RBC (test code = See_Comment [Automated 729-8) message] The sy stem which generated this [...] RDW-SD (test code = 46.4 fL 39.0-49.9 93749-8) RDW-CV (test code = 14.7 % 12.0-15.5 788-0) PLT (test code = See_Comment [Automated 777-3) message] The sy stem which generated this result transmitted reference range : 166 - 358 10*3/ ?L. The reference r ilan was not used to interpret this result as normal/abnormal . MPV (test code = 11.0 fL 9.5-12.9 47703-2) NRBC/100 WBC (test See_Comment [Automat ed code = 2143596166) message] The system which generated this result transmitted reference range : 0.0 - 10.0 /100 WBCs. The refer ence range was not u sed to interpret th is result as normal/abnormal . NRBC x10^3 (test code <0.01 See_Comment [Auto mated = 7933069009) message] The s ystem which generated this result transmitted reference range : 10*3/?L. The reference range was not used to interpret this result as normal/abnormal . GRAN MAT (NEUT) % 86.1 % (test code = 770-8) IMM GRAN % (test code 0.90 % = 7893624867) LYMPH % (test code = 3.2 % 736-9) MONO % (test code = 5.3 % 5905-5) EOS % (test code = 4.2 % 713-8) BASO % (test code = 0.3 % 706-2) GRAN MAT x10^3(ANC) 6.81 10*3/uL 1.88-7.09 (test code = 4164446997) IMM GRAN x10^3 (test 0.07 10*3/uL 0.00-0.06 H code = 3339321815) LYMPH x10^3 (test code 0.25 10*3/uL 1.32-3.29 L = 731-0) MONO x10^3 (test code 0.42 10*3/uL 0.33-0.92 = 742-7) EOS x10^3 (test code = 0.33 10*3/uL 0.03-0.39 711-2) BASO x10^3 (test code <0.03 0.01-0.07 = 704-7) Lab Interpretation Abnormal (test code = 55555-5) [facility] WITH [id number] 15:39:13 Test Item Value Reference Range Interpretation Comments WBC (test code = See_Comment [Automated 1106-2) message] The sy stem which generated this [...] RDW-SD (test code = 46.4 fL 39.0-49.9 81490-2) RDW-CV (test code = 14.7 % 12.0-15.5 788-0) PLT (test code = See_Comment [Automated 817-3) message] The sy stem which generated this result transmitted reference range : 166 - 358 10*3/ ?L. The reference r ilan was not used to interpret this result as normal/abnormal . MPV (test code = 11.0 fL 9.5-12.9 04801-6) NRBC/100 WBC (test See_Comment [Automat ed code = 3735611662) message] The system which generated this result transmitted reference range : 0.0 - 10.0 /100 WBCs. The refer ence range was not u sed to interpret th is result as normal/abnormal . NRBC x10^3 (test code <0.01 See_Comment [Auto mated = 9545136732) message] The s ystem which generated this result transmitted reference range : 10*3/?L. The reference range was not used to interpret this result as normal/abnormal . GRAN MAT (NEUT) % 86.1 % (test code = 770-8) IMM GRAN % (test code 0.90 % = 5190349917) LYMPH % (test code = 3.2 % 736-9) MONO % (test code = 5.3 % 5905-5) EOS % (test code = 4.2 % 713-8) BASO % (test code = 0.3 % 706-2) GRAN MAT x10^3(ANC) 6.81 10*3/uL 1.88-7.09 (test code = 6079764187) IMM GRAN x10^3 (test 0.07 10*3/uL 0.00-0.06 H code = 2209157837) LYMPH x10^3 (test code 0.25 10*3/uL 1.32-3.29 L = 731-0) MONO x10^3 (test code 0.42 10*3/uL 0.33-0.92 = 742-7) EOS x10^3 (test code = 0.33 10*3/uL 0.03-0.39 711-2) BASO x10^3 (test code <0.03 0.01-0.07 = 704-7) Lab Interpretation Abnormal (test code = 86363-5) [facility] 22:20:52 Test Item Value Reference Range Interpretation Comments POCT GLU (test code = 296 mg/dL 70-110 H Notifi ed Provider [id number]) Lab Interpretation (test Abnormal code = 27904-9) [facility] GLUCOSE (AUTOMATED)2021-03-17 22:20:52 Test Item Value Reference Range Interpretation Comments POCT GLU (test code = 296 mg/dL 70-110 H Notifi ed Provider [id number]) Lab Interpretation (test Abnormal code = 41817-8) [facility] GLUCOSE (AUTOMATED)2021-03-17 16:52:36 Test Item Value Reference Range Interpretation Comments POCT GLU (test code = 6197316469) 139 mg/dL 70-110 H Lab Interpretation (test code = Abnormal 40596-7) [facility] GLUCOSE (AUTOMATED)2021-03-17 16:52:36 Test Item Value Reference Range Interpretation Comments POCT GLU (test code = 3246396258) 139 mg/dL 70-110 H Lab Interpretation (test code = Abnormal 61119-9) [facility]-REACTIVE [id number] 15:24:26 Test Item Value Reference Range Interpretation Comments CRP (test code = 8705695081) 0.8 mg/dL <0.8 H Lab Interpretation (test code = Abnormal 95274-5) [facility]-REACTIVE [id number] 15:24:26 Test Item Value Reference Range Interpretation Comments CRP (test code = 5895419352) 0.8 mg/dL <0.8 H Lab Interpretation (test code = Abnormal 53206-2) [facility] GLUCOSE (AUTOMATED)2021-03-17 13:16:28 Test Item Value Reference Range Interpretation Comments POCT GLU (test code = 0096338193) 141 mg/dL 70-110 H Lab Interpretation (test code = Abnormal 89791-5) [facility] GLUCOSE (AUTOMATED)2021-03-17 13:16:28 Test Item Value Reference Range Interpretation Comments POCT GLU (test code = 2412258216) 141 mg/dL 70-110 H Lab Interpretation (test code = Abnormal 10964-4) [facility] Metabolic Panel (NA, K, CL, CO2, GLUCOSE, BUN, CREATININE, CA)2021-03-17 11:17:30 Test Item Value Reference Range Interpretation Comments NA (test code = 133 mmol/L 135-145 L 4680275161) K (test code = 4.8 mmol/L 3.5-5.0 0358437472) CL (test code = 94 mmol/L 98-108 L 9422335407) CO2 TOTAL (test code = 31 mmol/L 23-31 4689304798) AGAP (test code = 2-16 9530789196) BUN (test code = 19 mg/dL 7-23 0149127458) GLUCOSE (test code = 172 mg/dL 70-110 H 9144265279) CREATININE (test code = 0.67 mg/dL 0.50-1.04 2475431080) CALCIUM (test code = 8.9 mg/dL 8.6-10.6 8701916317) eGFR (test code = mL/min/1.73m2 3595921918) KENA (test code = KENA) Association of [...] tests). Lab Interpretation Abnormal (test code = 06114-8) [facility] Center[facility] [id number] 11:17:30 Test Item Value Reference Range Interpretation Comments MAGNESIUM (test code = 1914157012) 1.7 mg/dL 1.7-2.4 Lab Interpretation (test code = Normal 60434-2) [facility] (NA, K, CL, CO2, GLUCOSE, BUN, CREATININE, CA)2021-03-17 11:17:30 Test Item Value Reference Range Interpretation Comments NA (test code = 133 mmol/L 135-145 L 6506469358) K (test code = 4.8 mmol/L 3.5-5.0 8518018790) CL (test code = 94 mmol/L 98-108 L 4315621416) CO2 TOTAL (test code = 31 mmol/L 23-31 4103967304) AGAP (test code = 2-16 0764198604) BUN (test code = 19 mg/dL 7-23 1640873624) GLUCOSE (test code = 172 mg/dL 70-110 H 4058144959) CREATININE (test code = 0.67 mg/dL 0.50-1.04 6802111687) CALCIUM (test code = 8.9 mg/dL 8.6-10.6 7268685772) eGFR (test code = mL/min/1.73m2 0179483854) KENA (test code = KENA) Association of [...] tests). Lab Interpretation Abnormal (test code = 16252-4) [facility] CenterMagn[facility] [id number] 11:17:30 Test Item Value Reference Range Interpretation Comments MAGNESIUM (test code = 6303623039) 1.7 mg/dL 1.7-2.4 Lab Interpretation (test code = Normal 07462-7) [facility] with Liiwbmbznaen6930-95-96 11:02:24 Test Item Value Reference Range Interpretation Comments WBC (test code = See_Comment L [Automated 5090-2) message] The sy stem which generated this result transmitted reference range : 4.30 - 11.10 10*3/?L. The reference range was not used to interpret this result as normal/abnormal . RBC (test code = See_Comment [Automated 869-8) message] The sy stem which generated this [...] RDW-SD (test code = 46.7 fL 39.0-49.9 85000-5) RDW-CV (test code = 14.7 % 12.0-15.5 788-0) PLT (test code = See_Comment [Automated 517-3) message] The sy stem which generated this result transmitted reference range : 166 - 358 10*3/ ?L. The reference r ilan was not used to interpret this result as normal/abnormal . MPV (test code = 11.6 fL 9.5-12.9 73260-9) NRBC/100 WBC (test See_Comment [Automat ed code = 8765868062) message] The system which generated this result transmitted reference range : 0.0 - 10.0 /100 WBCs. The refer ence range was not u sed to interpret th is result as normal/abnormal . NRBC x10^3 (test code <0.01 See_Comment [Auto mated = 9645115520) message] The s ystem which generated this result transmitted reference range : 10*3/?L. The reference range was not used to interpret this result as normal/abnormal . GRAN MAT (NEUT) % 77.8 % (test code = 770-8) IMM GRAN % (test code 0.40 % = 6592601794) LYMPH % (test code = 10.3 % 736-9) MONO % (test code = 11.5 % 5905-5) EOS % (test code = 0.0 % 713-8) BASO % (test code = 0.0 % 706-2) GRAN MAT x10^3(ANC) 1.97 10*3/uL 1.88-7.09 (test code = 2988985355) IMM GRAN x10^3 (test <0.03 0.00-0.06 code = 4081326235) LYMPH x10^3 (test code 0.26 10*3/uL 1.32-3.29 L = 731-0) MONO x10^3 (test code 0.29 10*3/uL 0.33-0.92 L = 742-7) EOS x10^3 (test code = <0.03 0.03-0.39 L 711-2) BASO x10^3 (test code <0.03 0.01-0.07 = 704-7) Lab Interpretation Abnormal (test code = 97283-9) [facility] with Sjdovoraviak6954-59-77 11:02:24 Test Item Value Reference Range Interpretation [...] RDW-SD (test code = 46.7 fL 39.0-49.9 97546-6) RDW-CV (test code = 14.7 % 12.0-15.5 788-0) PLT (test code = See_Comment [Automated 777-3) message] The sy stem which generated this result transmitted reference range : 166 - 358 10*3/ ?L. The reference r ilan was not used to interpret this result as normal/abnormal . MPV (test code = 11.6 fL 9.5-12.9 50504-0) NRBC/100 WBC (test See_Comment [Automat ed code = 0056749583) message] The system which generated this result transmitted reference range : 0.0 - 10.0 /100 WBCs. The refer ence range was not u sed to interpret th is result as normal/abnormal . NRBC x10^3 (test code <0.01 See_Comment [Auto mated = 3693000951) message] The s ystem which generated this result transmitted reference range : 10*3/?L. The reference range was not used to interpret this result as normal/abnormal . GRAN MAT (NEUT) % 77.8 % (test code = 770-8) IMM GRAN % (test code 0.40 % = 2454753787) LYMPH % (test code = 10.3 % 736-9) MONO % (test code = 11.5 % 5905-5) EOS % (test code = 0.0 % 713-8) BASO % (test code = 0.0 % 706-2) GRAN MAT x10^3(ANC) 1.97 10*3/uL 1.88-7.09 (test code = 3831975157) IMM GRAN x10^3 (test <0.03 0.00-0.06 code = 1967334217) LYMPH x10^3 (test code 0.26 10*3/uL 1.32-3.29 L = 731-0) MONO x10^3 (test code 0.29 10*3/uL 0.33-0.92 L = 742-7) EOS x10^3 (test code = <0.03 0.03-0.39 L 711-2) BASO x10^3 (test code <0.03 0.01-0.07 = 704-7) Lab Interpretation Abnormal (test code = 58803-0) [facility] GLUCOSE (AUTOMATED)2021-03-17 02:24:14 Test Item Value Reference Range Interpretation Comments POCT GLU (test code = 4606563914) 230 mg/dL 70-110 H Lab Interpretation (test code = Abnormal 30845-9) [facility] GLUCOSE (AUTOMATED)2021-03-17 02:24:14 Test Item Value Reference Range Interpretation Comments POCT GLU (test code = 1101389932) 230 mg/dL 70-110 H Lab Interpretation (test code = Abnormal 81394-3) [facility] CenterProthrombin [facility] / [id number] 02:14:13 Test Item Value Reference Range Interpretation Comments PROTIME PATIENT (test See_Comment H [Auto mated message] code = 5964-2) The system [employer] generated this result transmitted ref erence range: 10.1 - 1 2.6 Seconds. The reference range was not used to int erpret this result as normal/abnormal . INR (test code = 6301-6) Nor mal INR <1.1; Warfarin Therap eutic range 2.0 to 3. 0 or 2.5 to 3.5, dep ending upon the indica tions. Lab Interpretation (test Abnormal code = 63882-2) [facility] CenterProthrombin Time / [id number] 02:14:13 Test Item Value Reference Range Interpretation Comments PROTIME PATIENT (test See_Comment H [Auto mated message] code = 5964-2) The system [employer] generated this result transmitted ref erence range: 10.1 - 1 2.6 Seconds. The reference range was not used to int erpret this result as normal/abnormal . INR (test code = 6301-6) Nor mal INR <1.1; Warfarin Therap eutic range 2.0 to 3. 0 or 2.5 to 3.5, dep ending upon the indica tions. Lab Interpretation (test Abnormal code = 35977-6) [facility] (NA, K, CL, CO2, GLUCOSE, BUN, CREATININE, CA)2021-03-17 02:12:36 Test Item Value Reference Range Interpretation Comments NA (test code = 131 mmol/L 135-145 L 9404732626) K (test code = 5.2 mmol/L 3.5-5.0 H 8860062753) CL (test code = 93 mmol/L 98-108 L 4355755702) CO2 TOTAL (test code = 32 mmol/L 23-31 H 1582176972) AGAP (test code = 2-16 5934069915) BUN (test code = 16 mg/dL 7-23 0477583492) GLUCOSE (test code = 252 mg/dL 70-110 H 8483773965) CREATININE (test code = 0.62 mg/dL 0.50-1.04 7353843469) CALCIUM (test code = 8.5 mg/dL 8.6-10.6 L 9888493553) eGFR (test code = mL/min/1.73m2 0206638923) KENA (test code = KENA) Association of [...] tests). Lab Interpretation Abnormal (test code = 30623-4) [facility] METABOLIC PANEL (NA, K, CL, CO2, GLUCOSE, BUN, CREATININE, CA)2021-03-17 02:12:36 Test Item Value Reference Range Interpretation Comments NA (test code = 131 mmol/L 135-145 L 8479580532) K (test code = 5.2 mmol/L 3.5-5.0 H 2761044648) CL (test code = 93 mmol/L 98-108 L 5968360900) CO2 TOTAL (test code = 32 mmol/L 23-31 H 7106822613) AGAP (test code = 2-16 8264124590) BUN (test code = 16 mg/dL 7-23 1217077485) GLUCOSE (test code = 252 mg/dL 70-110 H 2253607591) CREATININE (test code = 0.62 mg/dL 0.50-1.04 5407140999) CALCIUM (test code = 8.5 mg/dL 8.6-10.6 L 0231571504) eGFR (test code = mL/min/1.73m2 7544997692) KENA (test code = KENA) Association of [...] tests). Lab Interpretation Abnormal (test code = 49968-1) [facility] CenterLactic Acid Whole [id number] 01:58:17 Test Item Value Reference Range Interpretation Comments LACTIC ACID (test code = 1.21 mmol/L 0.50-2.20 1243556775) Lab Interpretation (test code = Normal 03230-1) [facility] CenterLactic Acid Whole Kssdu1788-87-79 01:58:17 Test Item Value Reference Range Interpretation Comments LACTIC ACID (test code = 1.21 mmol/L 0.50-2.20 0009306726) Lab Interpretation (test code = Normal 50482-2) [facility] CenterGlycosylated Hemoglobin (A1C)2021-03-17 01:21:32 Test Item Value Reference Range Interpretation Comments HGB A1C (test code = 8.9 % 4.0-5.7 H 4548-4) KENA (test code = KENA) Reference RangesNormal: <5.7%Prediabetes: 5.7 - 6.4%Diabetes: > 6.5% Lab Interpretation (test Abnormal code = 98390-1) [facility] CenterGlycosylated Hemoglobin (A1C)2021-03-17 01:21:32 Test Item Value Reference Range Interpretation Comments HGB A1C (test code = 8.9 % 4.0-5.7 H 4548-4) KENA (test code = KENA) Reference RangesNormal: <5.7%Prediabetes: 5.7 - 6.4%Diabetes: > 6.5% Lab Interpretation (test Abnormal code = 31704-5) [facility] GLUCOSE (AUTOMATED)2021-03-16 22:38:54 Test Item Value Reference Range Interpretation Comments POCT GLU (test code = 9966052837) 214 mg/dL 70-110 H Lab Interpretation (test code = Abnormal 94688-1) [facility] GLUCOSE (AUTOMATED)2021-03-16 22:38:54 Test Item Value Reference Range Interpretation Comments POCT GLU (test code = 5322606919) 214 mg/dL 70-110 H Lab Interpretation (test code = Abnormal 74540-9) [facility] CenterPROCALCITONIN2021-09-08 20:56:07 Test Item Value Reference Range Interpretation Comments Procalcitonin (test 0.02 ng/mL <0.07 code = 9087217204) KENA (test code = KENA) INTERPRETATION OF [...] lung abscess/empyema. For further information please refer to:[email or web address] Lab Interpretation Normal (test code = 99109-1) [facility] CenterPROCALCITONIN2021-09-08 20:56:07 Test Item Value Reference Range Interpretation Comments Procalcitonin (test 0.02 ng/mL <0.07 code = 2538361828) KENA (test code = KENA) INTERPRETATION OF [...] lung abscess/empyema. For further information please refer to:[email or web address] Lab Interpretation Normal (test code = 35476-0) [facility] CenterXR CHEST 1 [id number] 19:22:20 1. ?Mild pulmonary congestion with bibasilar [...] reviewed this study and agree with the abovereport.[facility] 1 [id number] 19:22:20 1. ?Mild pulmonary congestion with bibasilar [...] this study and agree with the abovereport. [facility] CenterFERRITIN [id number] 16:45:59 Test Item Value Reference Range Interpretation Comments FERRITIN (test code = 50.9 ng/mL 11.0-264.0 6588466402) KENA (test code = KENA) Biotin has been reported to cause a negative bias, interpret results relative to patient's use of biotin. Lab Interpretation (test Normal code = 64830-2) [facility] CenterFERRITIN [id number] 16:45:59 Test Item Value Reference Range Interpretation Comments FERRITIN (test code = 50.9 ng/mL 11.0-264.0 7004905550) KENA (test code = KENA) Biotin has been reported to cause a negative bias, interpret results relative to patient's use of biotin. Lab Interpretation (test Normal code = 78063-4) [facility] CenterURINALYSIS2021-09-08 16:24:24 Test Item Value Reference Range Interpretation Comments APPEARANCE (test code = Clear Clear 5478573766) COLOR (test code = Yellow Yellow 4989926713) PH (test code = 4.8-8.0 6331851617) SP GRAVITY (test code = 1.003-1.030 5828012948) GLU U QUAL (test code = 500 mg/dL Normal A 5564285158) BLOOD (test code = Negative Negative Interfere nce from 6845253586) ascorbic acid m ay cause false neg ative results. KETONES (test code = Negative Negative 2260371220) PROTEIN (test code = Negative Negative 2887-8) UROBILIN (test code = Normal Normal 6489915829) BILIRUBIN (test code = Negative Negative 3852684972) NITRITE (test code = Negative Negative 1142864116) LEUK TORSTEN (test code = Negative Negative 0373452135) RBC/HPF (test code = See_Comment [Autom ated message] 6230905976) The system [employer] generated this result transmitted ref erence range: 0 - 3 HP F. The reference range was not used to int erpret this result as normal/abnormal . WBC/HPF (test code = <1 See_Comment [Autom ated message] 8443685702) The system [employer] generated this result transmitted ref erence range: 0 - 5 HP F. The reference range was not used to int erpret this result as normal/abnormal . BACTERIA (test code = Negative Negative 7350993498) SQ EPITH (test code = HPF 7042516133) HYAL CAST (test code = See_Comment H [Aut omated message] 9636884577) The system [employer] generated this result transmitted ref erence range: <=2 LPF. The reference range was not used to int erpret this result as normal/abnormal . Lab Interpretation Abnormal (test code = 64187-8) [facility] CenterURINALYSIS2021-[facility]-08 16:24:24 Test Item Value Reference Range Interpretation Comments APPEARANCE (test code = Clear Clear 7330680798) COLOR (test code = Yellow Yellow 1385303970) PH (test code = 4.8-8.0 7920429734) SP GRAVITY (test code = 1.003-1.030 2645479927) GLU U QUAL (test code = 500 mg/dL Normal A 4824965521) BLOOD (test code = Negative Negative Interfere nce from 4121227878) ascorbic acid m ay cause false neg ative results. KETONES (test code = Negative Negative 9406582299) PROTEIN (test code = Negative Negative 2887-8) UROBILIN (test code = Normal Normal 4226635730) BILIRUBIN (test code = Negative Negative 5495738729) NITRITE (test code = Negative Negative 7293757964) LEUK TORSTEN (test code = Negative Negative 4903903016) RBC/HPF (test code = See_Comment [Autom ated message] 1018504741) The system [employer] generated this result transmitted ref erence range: 0 - 3 HP F. The reference range was not used to int erpret this result as normal/abnormal . WBC/HPF (test code = <1 See_Comment [Autom ated message] 1835255507) The system [employer] generated this result transmitted ref erence range: 0 - 5 HP F. The reference range was not used to int erpret this result as normal/abnormal . BACTERIA (test code = Negative Negative 5842425856) SQ EPITH (test code = HPF 5543175778) HYAL CAST (test code = See_Comment H [Aut omated message] 4046083585) The system [employer] generated this result transmitted ref erence range: <=2 LPF. The reference range was not used to int erpret this result as normal/abnormal . Lab Interpretation Abnormal (test code = 31217-1) [facility] [id number] 16:23:12 Test Item Value Reference Interpretation Comments Range TROPONIN I (test 0.003 ng/mL See_Comment [Automated code = 3057305461) message] The system which generated this result [...] biotin. Lab Interpretation Normal (test code = 22059-9) [facility] [id number] 16:23:12 Test Item Value Reference Interpretation Comments Range TROPONIN I (test 0.003 ng/mL See_Comment [Automated code = 3589932914) message] The system which generated this result [...] biotin. Lab Interpretation Normal (test code = 66708-9) [facility] CenterN-TERMINAL [id number] 16:19:59 Test Item Value Reference Range Interpretation Comments NT-proBNP (test code 2200 pg/mL See_Comment H [Autom ated = 2075093338) message] The system which generated this result transmitted reference range : <=450. The reference range was not used to interpret this result as normal/abnormal . KENA (test code = KENA) Biotin has been reported to cause a negative bias, interpret results relative to patient's use of biotin. Lab Interpretation Abnormal (test code = 84956-4) [facility] CenterN-TERMINAL [id number] 16:19:59 Test Item Value Reference Range Interpretation Comments NT-proBNP (test code 2200 pg/mL See_Comment H [Autom ated = 2645376877) message] The system which generated this result transmitted reference range : <=450. The reference range was not used to interpret this result as normal/abnormal . KENA (test code = KENA) Biotin has been reported to cause a negative bias, interpret results relative to patient's use of biotin. Lab Interpretation Abnormal (test code = 92187-2) [facility] METABOLIC PANEL (80300)2021-03-16 16:14:12 Test Item Value Reference Range Interpretation Comments NA (test code = 132 mmol/L 135-145 L 2398851930) K (test code = 4.4 mmol/L 3.5-5.0 2930233725) CL (test code = 92 mmol/L 98-108 L 7684465142) CO2 TOTAL (test code = 30 mmol/L 23-31 4941724518) AGAP (test code = 2-16 5078426005) BUN (test code = 22 mg/dL 7-23 3137428628) GLUCOSE (test code = 303 mg/dL 70-110 H 5155852278) CREATININE (test code = 0.69 mg/dL 0.50-1.04 8105529939) TOTAL BILI (test code = 0.7 mg/dL 0.1-1.7 4443634268) CALCIUM (test code = 8.7 mg/dL 8.6-10.6 4611577521) T PROTEIN (test code = 7.2 g/dL 6.3-8.2 0965681845) ALBUMIN (test code = 4.0 g/dL 3.5-5.0 7955360190) ALK PHOS (test code = 124 U/L 34-122 H 9992000685) ALTv (test code = 19 U/L 5-35 1742-6) AST(SGOT) (test code = 25 U/L 13-40 4194825245) eGFR (test code = mL/min/1.73m2 3833170203) KENA (test code = KENA) Association of [...] tests). Lab Interpretation Abnormal (test code = 25580-5) [facility] METABOLIC PANEL (19849)2021-03-16 16:14:12 Test Item Value Reference Range Interpretation Comments NA (test code = 132 mmol/L 135-145 L 1797547531) K (test code = 4.4 mmol/L 3.5-5.0 9935438805) CL (test code = 92 mmol/L 98-108 L 8166724339) CO2 TOTAL (test code = 30 mmol/L 23-31 4676239749) AGAP (test code = 2-16 4988384167) BUN (test code = 22 mg/dL 7-23 7192913272) GLUCOSE (test code = 303 mg/dL 70-110 H 9825078564) CREATININE (test code = 0.69 mg/dL 0.50-1.04 6878350827) TOTAL BILI (test code = 0.7 mg/dL 0.1-1.3 2979265267) CALCIUM (test code = 8.7 mg/dL 8.6-10.6 2446496368) T PROTEIN (test code = 7.2 g/dL 6.3-8.2 9213829602) ALBUMIN (test code = 4.0 g/dL 3.5-5.0 9965159226) ALK PHOS (test code = 124 U/L 34-122 H 4973934183) ALTv (test code = 19 U/L 5-35 1742-6) AST(SGOT) (test code = 25 U/L 13-40 6538968992) eGFR (test code = mL/min/1.73m2 4272105451) KENA (test code = KENA) Association of [...] tests). Lab Interpretation Abnormal (test code = 70709-6) [facility] CenterLACTATE [id number] 16:12:49 Test Item Value Reference Range Interpretation Comments LDH (test code = 5204051606) 412 U/L 300-600 Lab Interpretation (test code = Normal 44579-6) [facility] CenterLACTATE [id number] 16:12:49 Test Item Value Reference Range Interpretation Comments LDH (test code = 5864005202) 412 U/L 300-600 Lab Interpretation (test code = Normal 55028-3) [facility] CenterD-RINGJ1345-10-59 16:06:30 Test Item Value Reference Interpretation Comments Range D-DIMER (test code = See_Comment H [Autom ated 6304433956) message] The system which generated this result [...] diagnosis. Lab Interpretation Abnormal (test code = 47233-1) [facility] CenterD-CVTZV5745-00-42 16:06:30 Test Item Value Reference Interpretation Comments Range D-DIMER (test code = See_Comment H [Autom ated 8224063413) message] The system which generated this result [...] diagnosis. Lab Interpretation Abnormal (test code = 32128-2) [facility] CenterFIBRINOGEN2021-09-08 16:03:07 Test Item Value Reference Range Interpretation Comments Fibrinogen (test code = 5732851840) 367 mg/dL 214-470 Lab Interpretation (test code = Normal 33213-6) [facility]FIB[facility]INOGEN2021-09-08 16:03:07 Test Item Value Reference Range Interpretation Comments Fibrinogen (test code = 5762486496) 367 mg/dL 214-470 Lab Interpretation (test code = Normal 94618-2) [facility] CenterPROTHROMBIN TIME / [id number] 16:01:50 Test Item Value Reference Range Interpretation Comments PROTIME PATIENT (test See_Comment [Auto mated message] code = 5964-2) The system ich generated this result transmitted ref erence range: 12.0 - 1 4.7 Seconds. The re ference range was not u sed to interpret this result as normal/abnor mal. INR (test code = 6301-6) Nor mal INR <1.1; Warfarin Therap eutic range 2.0 to 3. 0 or 2.5 to 3.5, dep ending upon the indica tions. Lab Interpretation (test Normal code = 31877-4) [facility] [id number] 16:01:50 Test Item Value Reference Range Interpretation Comments PROTIME PATIENT (test See_Comment [Auto mated message] code = 5964-2) The system ich generated this result transmitted ref erence range: 12.0 - 1 4.7 Seconds. The re ference range was not u sed to interpret this result as normal/abnor mal. INR (test code = 6301-6) Nor mal INR <1.1; Warfarin Therap eutic range 2.0 to 3. 0 or 2.5 to 3.5, dep ending upon the indica tions. Lab Interpretation (test Normal code = 52843-6) [facility] WITH [id number] 15:55:48 Test Item Value Reference Range Interpretation Comments WBC (test code = See_Comment [Automated 2490-2) message] The sy stem which generated this result transmitted reference range : 4.30 - 11.10 10*3/?L. The reference range was not used to interpret this result as normal/abnormal . RBC (test code = See_Comment [Automated 039-8) message] The sy stem which generated this [...] RDW-SD (test code = 47.3 fL 39.0-49.9 35484-8) RDW-CV (test code = 14.9 % 12.0-15.5 788-0) PLT (test code = See_Comment [Automated 777-3) message] The sy stem which generated this result transmitted reference range : 166 - 358 10*3/ ?L. The reference r ilan was not used to interpret this result as normal/abnormal . MPV (test code = 12.1 fL 9.5-12.9 61243-8) NRBC/100 WBC (test See_Comment [Automat ed code = 2979285530) message] The system which generated this result transmitted reference range : 0.0 - 10.0 /100 WBCs. The refer ence range was not u sed to interpret th is result as normal/abnormal . NRBC x10^3 (test code <0.01 See_Comment [Auto mated = 9444294725) message] The s ystem which generated this result transmitted reference range : 10*3/?L. The reference range was not used to interpret this result as normal/abnormal . GRAN MAT (NEUT) % 81.6 % (test code = 770-8) IMM GRAN % (test code 0.90 % = 9856452446) LYMPH % (test code = 5.4 % 736-9) MONO % (test code = 7.8 % 5905-5) EOS % (test code = 4.1 % 713-8) BASO % (test code = 0.2 % 706-2) GRAN MAT x10^3(ANC) 3.79 10*3/uL 1.88-7.09 (test code = 6630404262) IMM GRAN x10^3 (test 0.04 10*3/uL 0.00-0.06 code = 7674942127) LYMPH x10^3 (test code 0.25 10*3/uL 1.32-3.29 L = 731-0) MONO x10^3 (test code 0.36 10*3/uL 0.33-0.92 = 742-7) EOS x10^3 (test code = 0.19 10*3/uL 0.03-0.39 711-2) BASO x10^3 (test code <0.03 0.01-0.07 = 704-7) Lab Interpretation Abnormal (test code = 95044-7) [facility] WITH [id number] 15:55:48 Test Item Value Reference Range Interpretation Comments WBC (test code = See_Comment [Automated 1290-2) message] The sy stem which generated this [...] RDW-SD (test code = 47.3 fL 39.0-49.9 67636-3) RDW-CV (test code = 14.9 % 12.0-15.5 788-0) PLT (test code = See_Comment [Automated 777-3) message] The sy stem which generated this result transmitted reference range : 166 - 358 10*3/ ?L. The reference r ilan was not used to interpret this result as normal/abnormal . MPV (test code = 12.1 fL 9.5-12.9 71235-5) NRBC/100 WBC (test See_Comment [Automat ed code = 1960458971) message] The system which generated this result transmitted reference range : 0.0 - 10.0 /100 WBCs. The refer ence range was not u sed to interpret th is result as normal/abnormal . NRBC x10^3 (test code <0.01 See_Comment [Auto mated = 3631411351) message] The s ystem which generated this result transmitted reference range : 10*3/?L. The reference range was not used to interpret this result as normal/abnormal . GRAN MAT (NEUT) % 81.6 % (test code = 770-8) IMM GRAN % (test code 0.90 % = 7207594501) LYMPH % (test code = 5.4 % 736-9) MONO % (test code = 7.8 % 5905-5) EOS % (test code = 4.1 % 713-8) BASO % (test code = 0.2 % 706-2) GRAN MAT x10^3(ANC) 3.79 10*3/uL 1.88-7.09 (test code = 0067591905) IMM GRAN x10^3 (test 0.04 10*3/uL 0.00-0.06 code = 9985567097) LYMPH x10^3 (test code 0.25 10*3/uL 1.32-3.29 L = 731-0) MONO x10^3 (test code 0.36 10*3/uL 0.33-0.92 = 742-7) EOS x10^3 (test code = 0.19 10*3/uL 0.03-0.39 711-2) BASO x10^3 (test code <0.03 0.01-0.07 = 704-7) Lab Interpretation Abnormal (test code = 91250-4) [facility] [id number] 15:31:08 Test Item Value Reference Range Interpretation Comments LACTIC ACID (test code = 2.41 mmol/L 0.50-2.20 H 3607922440) Lab Interpretation (test code = Abnormal 97778-7) [facility] [id number] 15:31:08 Test Item Value Reference Range Interpretation Comments LACTIC ACID (test code = 2.41 mmol/L 0.50-2.20 H 2608658637) Lab Interpretation (test code = Abnormal 12731-5) [facility] WITH [id number] 15:31:14 Test Item Value Reference Range Interpretation [...] RDW-SD (test code = 46.8 fL 39.0-49.9 64717-1) RDW-CV (test code = 14.6 % 12.0-15.5 788-0) PLT (test code = See_Comment [Automated 777-3) message] The sy stem which generated this result transmitted reference range : 166 - 358 10*3/ ?L. The reference r ilan was not used to interpret this result as normal/abnormal . MPV (test code = 10.8 fL 9.5-12.9 33992-3) NRBC/100 WBC (test See_Comment [Automat ed code = 7834714030) message] The system which generated this result transmitted reference range : 0.0 - 10.0 /100 WBCs. The refer ence range was not u sed to interpret th is result as normal/abnormal . NRBC x10^3 (test code <0.01 See_Comment [Auto mated = 9572114999) message] The s ystem which generated this result transmitted reference range : 10*3/?L. The reference range was not used to interpret this result as normal/abnormal . GRAN MAT (NEUT) % 81.3 % (test code = 770-8) IMM GRAN % (test code 0.50 % = 2563789947) LYMPH % (test code = 5.9 % 736-9) MONO % (test code = 9.1 % 5905-5) EOS % (test code = 2.8 % 713-8) BASO % (test code = 0.4 % 706-2) GRAN MAT x10^3(ANC) 6.04 10*3/uL 1.88-7.09 (test code = 4219710998) IMM GRAN x10^3 (test 0.04 10*3/uL 0.00-0.06 code = 9093560827) LYMPH x10^3 (test code 0.44 10*3/uL 1.32-3.29 L = 731-0) MONO x10^3 (test code 0.68 10*3/uL 0.33-0.92 = 742-7) EOS x10^3 (test code = 0.21 10*3/uL 0.03-0.39 711-2) BASO x10^3 (test code 0.03 10*3/uL 0.01-0.07 = 704-7) Lab Interpretation Abnormal (test code = 09578-5) [facility] BRAIN WO [id number] 20:17:42 No acute intracranial abnormality Background mild [...] voidsfor the major intracranial vessels are unremarkable. [facility], Radiant Results Inft User - 05/04/2020 3:18 PM CDTMR BRAIN WO CONTRASTHISTORY: Female 85 years External [...] acute intracranial abnormalityBackground mild ischemic small vessel diseaseUnHemphill County HospitalXR KNEE 3 VW [id number] 20:52:52 Healing lateral femoral condyle periprosthetic fracture. 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 Increased sclerosisandcallus formation are seen about the lateral femoral condyle periprostheticfracture. No new hardware complication is seen. Vascular calcifications arepresent. Osteopenia is noted. There is a small joint effusion. 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 Increased sclerosis andcallus formation are seen about the lateral femoral condyle periprostheticfracture. No new hardware complication is seen. Vascular calcifications arepresent. Osteopenia is noted. There is a small joint effusion.IMPRESSIONHealing lateral femoral condyle periprosthetic fracture.[facility]2019-03-18 16:33:00 Test Item Value Reference Range Interpretation Comments POCT GLU (test code = 3265580319) 260 mg/dL 70-110 H Lab Interpretation (test code = Abnormal 94676-7) [facility]2019-03-18 12:42:00 Test Item Value Reference Range Interpretation Comments POCT GLU (test code = 0367482767) 114 mg/dL 70-110 H Lab Interpretation (test code = Abnormal 82993-4) [facility] METABOLIC PANEL (NA, K, CL, CO2, GLUCOSE, BUN, CREATININE, CA)2019-03-18 10:55:00 Test Item Value Reference Range Interpretation Comments NA (test code = 135 mmol/L 135-145 0635236094) K (test code = 4.8 mmol/L 3.5-5 4200561716) CL (test code = 88 mmol/L 98-108 L 5844266570) CO2 TOTAL (test code = 38 mmol/L 23-31 H 2843894887) AGAP (test code = 2-16 8090815806) BUN (test code = 28 mg/dL 7-23 H 5570796675) GLUCOSE (test code = 112 mg/dL 70-110 H 2642916843) CREATININE (test code = 0.73 mg/dL 0.5-1.04 4768058793) CALCIUM (test code = 9.0 mg/dL 8.6-10.6 5116240886) eGFR Calculation mL/min/1.73m2 (Non-) (test code = 8894965950) eGFR Calculation mL/min/1.73m2 () (test code = 5445426031) KENA (test code = KENA) Association of [...] tests). Lab Interpretation Abnormal (test code = 94761-8) [facility] GLUCOSE (AUTOMATED)2019-03-18 06:47:00 Test Item Value Reference Range Interpretation Comments POCT GLU (test code = 8756493404) 150 mg/dL 70-110 H Lab Interpretation (test code = Abnormal 63722-8) [facility] GLUCOSE (AUTOMATED)2019-03-18 02:30:00 Test Item Value Reference Range Interpretation Comments POCT GLU (test code = 6363208621) 318 mg/dL 70-110 H Lab Interpretation (test code = Abnormal 05995-9) [facility]XR [facility]ST 1 [id number] 22:58:57 Mild pulmonary vascular congestion and cardiomegaly. [...] silhouette is enlarged. No acute osseous abnormality. [facility], Radiant Results Inft User - 03/17/2019 5:59 PM CDTPROCEDURE:XR CHEST 1 VWCLINICAL INDICATION: PICC LINE VERIFICATION COMPARISON: 03/14/2019FINDINGS:A right-sided PICC line terminates in the SVC.Bilateral reticulonodular opacities are present, similar to [facility]. There is a 1.9 cm nodularity [...] right- sided PICC line terminates in the SVC.I, Soni Baird MD., have reviewed this study and agree with the abovereport.[facility] GLUCOSE (AUTOMATED)2019-03-17 22:02:00 Test Item Value Reference Range Interpretation Comments POCT GLU (test code = 5061731289) 274 mg/dL 70-110 H Lab Interpretation (test code = Abnormal 70508-3) [facility] GLUCOSE (AUTOMATED)2019-03-17 16:23:00 Test Item Value Reference Range Interpretation Comments POCT GLU (test code = 6775791568) 221 mg/dL 70-110 H Lab Interpretation (test code = Abnormal 16088-4) [facility] METABOLIC PANEL (NA, K, CL, CO2, GLUCOSE, BUN, CREATININE, CA)2019-03-17 13:24:00 Test Item Value Reference Range Interpretation Comments NA (test code = 133 mmol/L 135-145 L 4772183130) K (test code = 4.2 mmol/L 3.5-5 2458068154) CL (test code = 85 mmol/L 98-108 L 3021132881) CO2 TOTAL (test code = 40 mmol/L 23-31 H 1645919530) AGAP (test code = 2-16 4206858451) BUN (test code = 27 mg/dL 7-23 H 5996956143) GLUCOSE (test code = 79 mg/dL 70-110 5876348057) CREATININE (test code = 0.67 mg/dL 0.5-1.04 6584529127) CALCIUM (test code = 9.4 mg/dL 8.6-10.6 1757786221) eGFR Calculation mL/min/1.73m2 (Non-) (test code = 3944207949) eGFR Calculation mL/min/1.73m2 () (test code = 1586187619) KENA (test code = KENA) Association of [...] tests). Lab Interpretation Abnormal (test code = 83373-2) [facility] CenterPOC[facility])2019-03-17 12:56:00 Test Item Value Reference Range Interpretation Comments POCT GLU (test code = 2311830426) 72 mg/dL 70-110 Lab Interpretation (test code = Normal 35299-9) [facility] WITH [id number] 12:49:00 Test Item Value Reference Range Interpretation Comments WBC (test code = See_Comment [Automated 3390-2) message] The sy stem which generated this result transmitted reference range : 4.30 - 11.10 10*3/?L. The reference range was not used to interpret this result as normal/abnormal . RBC (test code = See_Comment [Automated 497-8) message] The sy stem which generated this [...] RDW-SD (test code = 43.0 fL 39-49.9 70587-6) RDW-CV (test code = 13.3 % 12-15.5 788-0) PLT (test code = See_Comment [Automated 777-3) message] The sy stem which generated this result transmitted reference range : 166 - 358 10*3/ ?L. The reference r ilan was not used to interpret this result as normal/abnormal . MPV (test code = 11.3 fL 9.5-12.9 44764-7) NRBC/100 WBC (test See_Comment [Automat ed code = 7885939607) message] The system which generated this result transmitted reference range : 0.0 - 10.0 /100 WBCs. The refer ence range was not u sed to interpret th is result as normal/abnormal . NRBC x10^3 (test code <0.01 See_Comment [Auto mated = 8009194681) message] The s ystem which generated this result transmitted reference range : 10*3/?L. The reference range was not used to interpret this result as normal/abnormal . GRAN MAT (NEUT) % 77.5 % (test code = 770-8) IMM GRAN % (test code 1.50 % = 1917981141) LYMPH % (test code = 6.7 % 736-9) MONO % (test code = 10.8 % 5905-5) EOS % (test code = 3.2 % 713-8) BASO % (test code = 0.3 % 706-2) GRAN MAT x10^3(ANC) 5.12 10*3/uL 1.88-7.09 (test code = 3367244548) IMM GRAN x10^3 (test 0.10 10*3/uL 0-0.06 H code = 3796195679) LYMPH x10^3 (test code 0.44 10*3/uL 1.32-3.29 L = 731-0) MONO x10^3 (test code 0.71 10*3/uL 0.33-0.92 = 742-7) EOS x10^3 (test code = 0.21 10*3/uL 0.03-0.39 711-2) BASO x10^3 (test code <0.03 0.01-0.07 = 704-7) Lab Interpretation Abnormal (test code = 74367-7) [facility] GLUCOSE (AUTOMATED)2019-03-17 01:50:00 Test Item Value Reference Range Interpretation Comments POCT GLU (test code = 5333093448) 256 mg/dL 70-110 H Lab Interpretation (test code = Abnormal 26516-8) [facility] GLUCOSE (AUTOMATED)2019-03-16 21:45:00 Test Item Value Reference Range Interpretation Comments POCT GLU (test code = 5184457451) 162 mg/dL 70-110 H Lab Interpretation (test code = Abnormal 41977-1) [facility] GLUCOSE (AUTOMATED)2019-03-16 16:28:00 Test Item Value Reference Range Interpretation Comments POCT GLU (test code = 9792122406) 269 mg/dL 70-110 H Lab Interpretation (test code = Abnormal 01022-3) [facility] VW [id number] 16:17:55 Diffuse mild soft tissue swelling without acute bony abnormalities. Midfoot and moderate osteoarthritis. Diffuse osteopenia IMacy MD., have reviewed this study and agree [...] is suspected.Osteopeniais seen. [facility], Radiant Results Inft User - 03/16/2019 11:18 AM CDT* * * [...] reviewed this study and agree with the abovereport.[facility] GLUCOSE (AUTOMATED)2019-03-16 12:39:00 Test Item Value Reference Range Interpretation Comments POCT GLU (test code = 1818411302) 113 mg/dL 70-110 H Lab Interpretation (test code = Abnormal 85020-4) [facility] GLUCOSE (AUTOMATED)2019-03-16 01:28:00 Test Item Value Reference Range Interpretation Comments POCT GLU (test code = 9075391700) 201 mg/dL 70-110 H Lab Interpretation (test code = Abnormal 17869-0) [facility] GLUCOSE (AUTOMATED)2019-03-15 21:56:00 Test Item Value Reference Range Interpretation Comments POCT GLU (test code = 7359577690) 119 mg/dL 70-110 H Lab Interpretation (test code = Abnormal 97951-8) [facility] GLUCOSE (AUTOMATED)2019-03-15 21:56:00 Test Item Value Reference Range Interpretation Comments POCT GLU (test code = 8228680849) 184 mg/dL 70-110 H Lab Interpretation (test code = Abnormal 45070-5) [facility] GLUCOSE (AUTOMATED)2019-03-15 13:58:00 Test Item Value Reference Range Interpretation Comments POCT GLU (test code = 6099743860) 57 mg/dL 70-110 L Lab Interpretation (test code = Abnormal 30938-6) [facility] GLUCOSE (AUTOMATED)2019-03-15 13:58:00 Test Item Value Reference Range Interpretation Comments POCT GLU (test code = 7038198264) 82 mg/dL 70-110 Lab Interpretation (test code = Normal 69069-1) [facility] GLUCOSE (AUTOMATED)2019-03-15 00:47:00 Test Item Value Reference Range Interpretation Comments POCT GLU (test code = 4045437075) 293 mg/dL 70-110 H Lab Interpretation (test code = Abnormal 58819-8) [facility] GLUCOSE (AUTOMATED)2019-03-14 21:38:00 Test Item Value Reference Range Interpretation Comments POCT GLU (test code = 1214961756) 256 mg/dL 70-110 H Lab Interpretation (test code = Abnormal 79232-1) [facility] GLUCOSE (AUTOMATED)2019-03-14 17:20:00 Test Item Value Reference Range Interpretation Comments POCT GLU (test code = 1637990452) 149 mg/dL 70-110 H Lab Interpretation (test code = Abnormal 24516-5) [facility] GLUCOSE (AUTOMATED)2019-03-14 12:50:00 Test Item Value Reference Range Interpretation Comments POCT GLU (test code = 0658179417) 100 mg/dL 70-110 Lab Interpretation (test code = Normal 49522-7) [facility] [id number] 07:32:02Impression: Moderate cardiomegaly without acute pulmonary process. RL: 460 AFC: [id number]: Hypoxia Comparison: None Findings: Single AP view [...] intact.IMPRESSIONImpression:Moderate cardiomegaly without acute pulmonary process.RL: 460AFC: 88476[facility]fv[facility]XR KNEE 3 VW LEFT 2019-03-14 05:25:48 No [...] reviewed this study and agree with the abovereport.[facility] GLUCOSE (AUTOMATED)2019-03-14 01:34:00 Test Item Value Reference Range Interpretation Comments POCT GLU (test code = 1341309745) 232 mg/dL 70-110 H Lab Interpretation (test code = Abnormal 29379-3) [facility] GLUCOSE (AUTOMATED)2019-03-13 21:12:00 Test Item Value Reference Range Interpretation Comments POCT GLU (test code = 1665293763) 228 mg/dL 70-110 H Lab Interpretation (test code = Abnormal 92043-7) [facility] GLUCOSE (AUTOMATED)2019-03-13 16:52:00 Test Item Value Reference Range Interpretation Comments POCT GLU (test code = 7605343893) 162 mg/dL 70-110 H Lab Interpretation (test code = Abnormal 88367-1) [facility] [id number] 13:44:00 Test Item Value Reference Range Interpretation Comments Ampicillin (test code = 4: Susceptible 54292-9) Cefazolin (test code = <=4: Susceptible 08881-2) Ceftriaxone (test code = <=1: Susceptible 97086-8) Ertapenem (test code = <=0.5: Susceptible 90825-7) Gentamicin (test code = <=1: Susceptible 29092-7) Levofloxacin (test code = <=0.12: Susceptible 06600-6) Nitrofurantoin (test code <=16: Susceptible = 51222-3) Piperacillin/Tazobactam <=4: Susceptible (test code = 36315-0) Trimethoprim/Sulfamethoxa <=20: Susceptible zole (test code = 55512-4) Nitrofurantoin is not recommended for use in treating pyelonephritis or systemic disease.[facility] CULTURE [id number] 13:09:00 Test Item Value Reference Interpretation Comments Range Blood Culture positive, No growth AA Previous Culture-Aerobic identification to prelimi nary (test code = follow verified result 69967-7) was Culture In Progress on 03/11/2019 at 084 4 CDT Blood Culture positive, No growth AA Previous Culture-Anaerobic identification to preli minary (test code = follow verified result 71244-4) was Culture In Progress on 03/10/2019 at 230 1 CDT Lab Interpretation Abnormal (test code = 76418-2) [facility] CULTURE [id number] 13:09:00 Test Item Value Reference Range Interpretation Comments Gram stain Isolated from This is an imelda ended (test code = aerobic bottle report. These results 664-3) Gram negative rods have been appended to a previously preliminary nanette ified report. [facility] CULTURE [id number] 13:07:00 Test Item Value Reference Interpretation Comments Range Blood Culture positive, No growth AA Previous Culture-Aerobic identification to prelimi nary (test code = follow verified result 21578-3) was Culture In Progress on 03/10/2019 at 230 1 CDT Blood Culture positive, No growth AA Previous Culture-Anaerobic identification to preli minary (test code = follow verified result 22399-3) was Culture In Progress on 03/11/2019 at 084 6 CDT Lab Interpretation Abnormal (test code = 89449-4) [facility] GLUCOSE (AUTOMATED)2019-03-13 12:32:00 Test Item Value Reference Range Interpretation Comments POCT GLU (test code = 9272831101) 136 mg/dL 70-110 H Lab Interpretation (test code = Abnormal 86863-5) [facility] METABOLIC PANEL (NA, K, CL, CO2, GLUCOSE, BUN, CREATININE, CA)2019-03-13 11:26:00 Test Item Value Reference Range Interpretation Comments NA (test code = 130 mmol/L 135-145 L 7932501992) K (test code = 4.2 mmol/L 3.5-5 5926986481) CL (test code = 87 mmol/L 98-108 L 9233289183) CO2 TOTAL (test code = 37 mmol/L 23-31 H 0717506849) AGAP (test code = 2-16 8178042057) BUN (test code = 18 mg/dL 7-23 7692519608) GLUCOSE (test code = 141 mg/dL 70-110 H 3128357444) CREATININE (test code = 0.65 mg/dL 0.5-1.04 3845303425) CALCIUM (test code = 9.0 mg/dL 8.6-10.6 2749177040) eGFR Calculation mL/min/1.73m2 (Non-) (test code = 2082027371) eGFR Calculation mL/min/1.73m2 () (test code = 0730371635) KENA (test code = KENA) Association of [...] tests). Lab Interpretation Abnormal (test code = 38160-7) [facility] WITH [id number] 11:20:00 Test Item Value Reference Range Interpretation Comments WBC (test code = See_Comment [Automated 5190-2) message] The sy stem which generated this result transmitted reference range : 4.30 - 11.10 10*3/?L. The reference range was not used to interpret this result as normal/abnormal . RBC (test code = See_Comment [Automated 589-8) message] The sy stem which generated this [...] RDW-SD (test code = 42.6 fL 39-49.9 06089-0) RDW-CV (test code = 13.3 % 12-15.5 788-0) PLT (test code = See_Comment [Automated 777-3) message] The sy stem which generated this result transmitted reference range : 166 - 358 10*3/ ?L. The reference r ilan was not used to interpret this result as normal/abnormal . MPV (test code = 12.1 fL 9.5-12.9 92003-0) NRBC/100 WBC (test See_Comment [Automat ed code = 5935167539) message] The system which generated this result transmitted reference range : 0.0 - 10.0 /100 WBCs. The refer ence range was not u sed to interpret th is result as normal/abnormal . NRBC x10^3 (test code <0.01 See_Comment [Auto mated = 8142879321) message] The s ystem which generated this result transmitted reference range : 10*3/?L. The reference range was not used to interpret this result as normal/abnormal . GRAN MAT (NEUT) % 77.9 % (test code = 770-8) IMM GRAN % (test code 0.50 % = 4442706867) LYMPH % (test code = 7.8 % 736-9) MONO % (test code = 10.7 % 5905-5) EOS % (test code = 2.8 % 713-8) BASO % (test code = 0.3 % 706-2) GRAN MAT x10^3(ANC) 4.67 10*3/uL 1.88-7.09 (test code = 5549439378) IMM GRAN x10^3 (test 0.03 10*3/uL 0-0.06 code = 3253114381) LYMPH x10^3 (test code 0.47 10*3/uL 1.32-3.29 L = 731-0) MONO x10^3 (test code 0.64 10*3/uL 0.33-0.92 = 742-7) EOS x10^3 (test code = 0.17 10*3/uL 0.03-0.39 711-2) BASO x10^3 (test code <0.03 0.01-0.07 = 704-7) Lab Interpretation Abnormal (test code = 81386-1) [facility] GLUCOSE (AUTOMATED)2019-03-13 01:38:00 Test Item Value Reference Range Interpretation Comments POCT GLU (test code = 5702267712) 232 mg/dL 70-110 H Lab Interpretation (test code = Abnormal 77597-7) [facility] GLUCOSE (AUTOMATED)2019-03-12 21:07:00 Test Item Value Reference Range Interpretation Comments POCT GLU (test code = 2143262610) 220 mg/dL 70-110 H Lab Interpretation (test code = Abnormal 86372-6) [facility] GLUCOSE (AUTOMATED)2019-03-12 16:39:00 Test Item Value Reference Range Interpretation Comments POCT GLU (test code = 6184480393) 198 mg/dL 70-110 H Lab Interpretation (test code = Abnormal 08629-8) [facility] GLUCOSE (AUTOMATED)2019-03-12 12:45:00 Test Item Value Reference Range Interpretation Comments POCT GLU (test code = 9876264192) 65 mg/dL 70-110 L Lab Interpretation (test code = Abnormal 61096-3) [facility] GLUCOSE (AUTOMATED)2019-03-12 02:06:00 Test Item Value Reference Range Interpretation Comments POCT GLU (test code = 1721463923) 114 mg/dL 70-110 H Lab Interpretation (test code = Abnormal 32716-3) [facility]ENS DNA [id number] 00:57:00 Test Item Value Reference Range Interpretation Comments Escherichia coli (test Positive Negative A code = 10772-5) KENA (test code = KENA) See blood culture result for additional information.?Testing included eight identification and six resistance marker targets. Lab Interpretation Abnormal (test code = 62250-4) [facility] GLUCOSE (AUTOMATED)2019-03-11 21:32:00 Test Item Value Reference Range Interpretation Comments POCT GLU (test code = 8968043661) 100 mg/dL 70-110 Lab Interpretation (test code = Normal 57506-8) [facility]A1C)2019-03-11 19:23:00 Test Item Value Reference [...] Indicated Lab Interpretation Abnormal (test code = 40574-9) [facility] GLUCOSE (AUTOMATED)2019-03-11 17:05:00 Test Item Value Reference Range Interpretation Comments POCT GLU (test code = 3495367412) 102 mg/dL 70-110 Lab Interpretation (test code = Normal 44103-3) [facility] (NA, K, CL, CO2, GLUCOSE, BUN, CREATININE, CA)2019-03-11 13:04:00 Test Item Value Reference Range Interpretation Comments NA (test code = 141 mmol/L 135-145 7479925587) K (test code = 4.2 mmol/L 3.5-5 0527411703) CL (test code = 103 mmol/L 98-108 9207122284) CO2 TOTAL (test code = 32 mmol/L 23-31 H 9493513718) AGAP (test code = 2-16 0333027621) BUN (test code = 23 mg/dL 7-23 7910666414) GLUCOSE (test code = 84 mg/dL 70-110 7156491264) CREATININE (test code = 0.82 mg/dL 0.5-1.04 7104652172) CALCIUM (test code = 8.6 mg/dL 8.6-10.6 0324949093) eGFR Calculation mL/min/1.73m2 (Non-) (test code = 4097273313) eGFR Calculation mL/min/1.73m2 () (test code = 2603445460) KENA (test code = KENA) Association of [...] tests). Lab Interpretation Abnormal (test code = 29848-7) [facility]2019-03-11 12:58:00 Test Item Value Reference Range Interpretation Comments POCT GLU (test code = 4457709913) 73 mg/dL 70-110 Lab Interpretation (test code = Normal 19008-3) [facility] WITH [id number] 12:04:00 Test Item Value Reference Range Interpretation [...] RDW-SD (test code = 47.1 fL 39-49.9 73620-9) RDW-CV (test code = 14.2 % 12-15.5 788-0) PLT (test code = See_Comment L [Automated 777-3) message] The sy stem which generated this result transmitted reference range : 166 - 358 10*3/ ?L. The reference r ilan was not used to interpret this result as normal/abnormal . MPV (test code = 12.7 fL 9.5-12.9 65686-5) NRBC/100 WBC (test See_Comment [Automat ed code = 5136286753) message] The system which generated this result transmitted reference range : 0.0 - 10.0 /100 WBCs. The refer ence range was not u sed to interpret th is result as normal/abnormal . NRBC x10^3 (test code <0.01 See_Comment [Auto mated = 8564127838) message] The s ystem which generated this result transmitted reference range : 10*3/?L. The reference range was not used to interpret this result as normal/abnormal . GRAN MAT (NEUT) % 85.3 % (test code = 770-8) IMM GRAN % (test code 0.40 % = 8525260873) LYMPH % (test code = 6.0 % 736-9) MONO % (test code = 7.9 % 5905-5) EOS % (test code = 0.2 % 713-8) BASO % (test code = 0.2 % 706-2) GRAN MAT x10^3(ANC) 8.01 10*3/uL 1.88-7.09 H (test code = 3588022705) IMM GRAN x10^3 (test 0.04 10*3/uL 0-0.06 code = 1390342245) LYMPH x10^3 (test code 0.56 10*3/uL 1.32-3.29 L = 731-0) MONO x10^3 (test code 0.74 10*3/uL 0.33-0.92 = 742-7) EOS x10^3 (test code = <0.03 0.03-0.39 L 711-2) BASO x10^3 (test code <0.03 0.01-0.07 = 704-7) Lab Interpretation Abnormal (test code = 03058-5) [facility]2019-03-11 04:01:00 Test Item Value Reference Range Interpretation Comments POCT GLU (test code = 128 mg/dL 70-110 H 6597149531) KENA (test code = KENA) Notified Provider Lab Interpretation (test Abnormal code = 55020-7) [facility]XR CHEST 1 [id number] 02:45:38 Cardiomegaly, bilateral mild pulmonary edema. No parenchymal consolidationis appreciated. Maryuri Mayberry MD., have reviewed this study and [...] right humeral head. Prior left distal clavicleresection. [facility], Radiant Results InftUser - 03/10/2019 9:47 PM [...] this study and agree with the abovereport. [facility]2019-[facility] 02:12:00 Test Item Value Reference Range Interpretation Comments DIGOXIN (test code = 1.0 ng/mL 0.8-1.6 2515945343) KENA (test code = KENA) Arrythmias:?1.5 - 2.0 ng/mLToxic Range:? Greater than or equal to 2.4 ng/mL Lab Interpretation (test Normal code = 53646-5) [facility] CenterTroponin [id number] 01:22:00 Test Item Value Reference Range Interpretation Comments TROPONIN I (test <0.012 See_Comment [Automated code = 5239723169) message] The system which generated this result [...] ? Lab Interpretation Normal (test code = 98689-5) [facility] Metabolic Panel (NA, K, CL, CO2, GLUCOSE, BUN, CREATININE, CA)2019-03-11 01:11:00 Test Item Value Reference Range Interpretation Comments NA (test code = 138 mmol/L 135-145 7183494704) K (test code = 5.2 mmol/L 3.5-5 H 8553711915) CL (test code = 97 mmol/L 98-108 L 9385378692) CO2 TOTAL (test code = 29 mmol/L 23-31 7030336411) AGAP (test code = 2-16 9760586401) BUN (test code = 26 mg/dL 7-23 H 3214937152) GLUCOSE (test code = 259 mg/dL 70-110 H 7412900662) CREATININE (test code = 0.78 mg/dL 0.5-1.04 9667667376) CALCIUM (test code = 9.1 mg/dL 8.6-10.6 8388663899) eGFR Calculation mL/min/1.73m2 (Non-) (test code = 3365485452) eGFR Calculation mL/min/1.73m2 () (test code = 7679094727) KENA (test code = KENA) Association of [...] tests). Lab Interpretation Abnormal (test code = 11805-8) [facility] (ALB, T.PRO, BILI T, BU/BC, ALT, AST, ALK PHOS)2019-03-11 01:11:00 Test Item Value Reference Range Interpretation Comments TOTAL BILI (test code = 2761851173) 0.6 mg/dL 0.1-1.1 BILI UNCON (test code = 5215682576) 0.4 mg/dL 0.1-1.1 BILI CONJ (test code = 0439609368) 0.0 mg/dL 0-0.3 T PROTEIN (test code = 9354163612) 7.6 g/dL 6.3-8.2 ALBUMIN (test code = 1597749410) 4.5 g/dL 3.5-5 ALK PHOS (test code = 9954949996) 95 U/L 34-122 ALT(SGPT) (test code = 5972852362) 21 U/L 9-51 AST(SGOT) (test code = 6776519567) 23 U/L 13-40 Lab Interpretation (test code = Normal 84430-6) [facility] CenterLipase [id number] 01:11:00 Test Item Value Reference Range Interpretation Comments LIPASE (test code = 5517784762) 25 U/L 0-220 Lab Interpretation (test code = Normal 22865-7) [facility] CenterUrinalysis2019-09-03 01:07:00 Test Item Value Reference Range Interpretation Comments APPEARANCE (test code Slightly Cloudy Clear A = 2733674910) COLOR (test code = Yellow Yellow 9246742037) PH (test code = 4.8-8.0 7144045207) SP GRAVITY (test code 1.003-1.030 = 7412417033) GLU U QUAL (test code >1000 mg/dL Negative A = 7060838978) BLOOD (test code = Large Negative A 4101161531) KETONES (test code = Negative Negative 2697309237) PROTEIN (test code = 100 mg/dL Negative A 2887-8) UROBILIN (test code = 0.2 mg/dL See_Comment [Auto mated 7522821625) message] The system which generated this result transmit rayna reference range : 0-1.0 mg/dL. Th e reference range was not used to interpret this result as normal/abnormal . BILIRUBIN (test code Negative Negative = 6900032887) NITRITE (test code = Positive Negative A 4619958220) LEUK TORSTEN (test code Small Negative A = 4270947108) RBC/HPF (test code = See_Comment H [Autom ated 3427579233) message] The system which generated this result transmit rayna reference range : 0 - 3 HPF. The reference range was not used to interpret this result as normal/abnormal . WBC/HPF (test code = >182 See_Comment H [Autom ated 5956247284) message] The system which generated this result transmit rayna reference range : 0 - 5 HPF. The reference range was not used to interpret this result as normal/abnormal . BACTERIA (test code = Many Negative A 3627902613) AMORPHOUS (test code Moderate HPF = 6521925933) Lab Interpretation Abnormal (test code = 98025-1) [facility] WITH [id number] 00:56:00 Test Item Value Reference Range Interpretation Comments WBC (test code = See_Comment [Automated 6690-2) message] The sy stem which generated this result transmitted reference range : 4.30 - 11.10 10*3/?L. The reference range was not used to interpret this result as normal/abnormal . RBC (test code = See_Comment [Automated 849-8) message] The sy stem which generated this [...] RDW-SD (test code = 45.3 fL 39-49.9 36335-8) RDW-CV (test code = 14.1 % 12-15.5 788-0) PLT (test code = See_Comment [Automated 777-3) message] The sy stem which generated this result transmitted reference range : 166 - 358 10*3/ ?L. The reference r ilan was not used to interpret this result as normal/abnormal . MPV (test code = 12.6 fL 9.5-12.9 33677-3) NRBC/100 WBC (test See_Comment [Automat ed code = 1304811218) message] The system which generated this result transmitted reference range : 0.0 - 10.0 /100 WBCs. The refer ence range was not u sed to interpret th is result as normal/abnormal . NRBC x10^3 (test code <0.01 See_Comment [Auto mated = 4945749795) message] The s ystem which generated this result transmitted reference range : 10*3/?L. The reference range was not used to interpret this result as normal/abnormal . GRAN MAT (NEUT) % 90.0 % (test code = 770-8) IMM GRAN % (test code 0.30 % = 1412720752) LYMPH % (test code = 4.1 % 736-9) MONO % (test code = 3.9 % 5905-5) EOS % (test code = 1.5 % 713-8) BASO % (test code = 0.2 % 706-2) GRAN MAT x10^3(ANC) 8.35 10*3/uL 1.88-7.09 H (test code = 8677175048) IMM GRAN x10^3 (test 0.03 10*3/uL 0-0.06 code = 3768393304) LYMPH x10^3 (test code 0.38 10*3/uL 1.32-3.29 L = 731-0) MONO x10^3 (test code 0.36 10*3/uL 0.33-0.92 = 742-7) EOS x10^3 (test code = 0.14 10*3/uL 0.03-0.39 711-2) BASO x10^3 (test code <0.03 0.01-0.07 = 704-7) Lab Interpretation Abnormal (test code = 07387-2) [facility] CenterLactic Acid Whole [id number] 00:03:00 Test Item Value Reference Range Interpretation Comments LACTIC ACID (test code = 1.88 mmol/L 0.5-2.2 5313735076) Lab Interpretation (test code = Normal 88040-6) [facility]
--- NOTE | 2021-12-08 22:25 | EDPHYS ---
Physician Documentation [facility] Name: Minda Mcdowell Age: 86 yrs Sex: Female : 1935 Arrival Date: 12/08/2021 Time: 19:44 Bed 14 Private MD: Neo Garcia ED Physician Herberth Phillips HPI: 12/08 20:21 This 86 yrs old Female presents to ER via Wheelchair with complaints of Laceration To jmm Leg - l, Puncture Wound To Leg - r. 20:21 The patient presents with an injury, pain. Onset: The symptoms/episode began/occurred jm acutely, just prior to arrival. Modifying factors: The symptoms are alleviated by nothing. the symptoms are aggravated by nothing. This is an 86 year old female with a history of chf, hlp, htn that presents to the ED with two laceration to each lower extremity. . Historical: - Allergies: 20:22 Keflex; tw5 20:22 Levaquin; tw5 20:22 PENICILLINS; tw5 20:22 Vancomycin; tw5 - PMHx: 20:22 CHF; diabetes mellitus; heart disease; Hypercholesterolemia; Hypertensive disorder; tw5 - PSHx: 20:22 Cholecystectomy; tw5 - Immunization history:: Flu vaccine is up to date. - Social history:: Smoking status: Patient denies any tobacco usage or history of. ROS: 22:20 Constitutional: Negative for fever, chills, and weight loss, Respiratory: Negative for jmm shortness of breath, cough, wheezing, and pleuritic chest pain, Abdomen/GI: Negative for abdominal pain, nausea, vomiting, diarrhea, and constipation. 22:20 MS/extremity: Positive for injury or acute deformity, laceration. 22:20 All other systems are negative. Exam: 22:20 Constitutional: This is a well developed, well nourished patient who is awake, alert, jmm and in no acute distress. Head/Face: atraumatic. Eyes: EOMI, no conjunctival erythema appreciated ENT: Moist Mucus Membranes Neck: Trachea midline, Supple Chest/axilla: Normal chest wall appearance and motion. Cardiovascular: Regular rate and rhythm. No edema appreciated Respiratory: Normal respirations, no respiratory distress appreciated Abdomen/GI: Non distended, soft Back: Normal ROM Skin: General appearance color normal 22:20 Musculoskeletal/extremity: laceration noted to the each lower extremity, pedal edema appreciated biaterally, compartments are soft, full dorsalis pulse, nvi. 22:20 Skin: Appearance: Color: normal in color. 22:20 Neuro: Orientation: is normal, Mentation: is normal, Memory: is normal. 22:20 Psych: Behavior/mood is pleasant, cooperative. Vital Signs: 20:19 BP 118 / 65; Pulse 90; Resp 18; Temp 98; Pulse Ox 96% on R/A; Weight 81.19 kg; Height 5 tw5 ft. 7 in. (170.18 cm); 20:19 Body Mass Index 28.04 (81.19 kg, 170.18 cm) tw5 Laceration: 22:22 Wound Repair of 4cm ( 1.6in ) subcutaneous laceration to left leg. Distal m neuro/vascular/tendon intact. Anesthesia: Local anesthetic administered with 10 mls of 1% lidocaine w/ Epi. Wound prep: Moderate cleansing with betadine by me. Skin closed with 6 3-0 Prolene using simple sutures and sterile technique. Patient tolerated well. 22:22 Wound Repair of 4cm ( 1.6in ) subcutaneous laceration to right leg. Distal jmm neuro/vascular/tendon intact. Anesthesia: Local anesthetic administered with 10 mls of 1% lidocaine w/ Epi. Wound prep: Moderate cleansing with betadine by me. Skin closed with 6 3-0 Prolene using simple sutures and sterile technique. Patient tolerated well. MDM: 20:21 Patient medically screened. [facility] 22:22 Data reviewed: vital signs, nurses notes. Counseling: I had a detailed discussion with [facility] the patient and/or guardian regarding: the historical points, exam findings, and any diagnostic results supporting the discharge/admit diagnosis. 22:23 Counseling: I had a detailed discussion with the patient and/or guardian regarding: the [facility] need for outpatient follow up, to return to the emergency department if symptoms worsen or persist or if there are any questions or concerns that arise at home. ED course: Patient given wound infection return precautions. Patient understood and agrees with the plan of care. . 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 Exp: vc1 09/17/2023. Lot #: [id number]. } Route: IM; Site: right deltoid; 23:15 Follow up: Response: Medication administered at discharge. 1 22:52 Drug: Lidocaine-Epinephrine -1%: (1:100,000) 20 ml Volume: 20 ml; Route: Infiltration; vc1 Site: affected area; Disposition: 12/09 05:14 Co-signature as Attending Physician, Herberth Phillips DO I was immediately available on-site ms3 in the Emergency Department for consultation in the care of the patient.. Disposition Summary: 12/08/21 22:24 Discharge Ordered Location: Home [facility] Condition: Stable [facility] Diagnosis - Lower Extremity Laceration [facility] Followup: [facility] - With: Private Physician - When: 10 - 14 days - Reason: Recheck today's complaints, Continuance of care, Staple/Suture removal, Re-evaluation by your physician Discharge Instructions: - Discharge Summary Sheet [facility] - Laceration Care, Adult [facility] Forms: - Medication Reconciliation Form [facility] - Thank You Letter [facility] - Antibiotic Education [facility] - Prescription Opioid Use [facility] Prescriptions: - Doxycycline Hyclate 100 mg Oral Tablet - take 1 tablet by ORAL route every 12 hours; 20 tablet; Refills: 0, Product [facility] Selection Permitted Signatures: Bear Paniagua PA PA [facility] Herberth Phillips DO DO ms3 Rossy Herman 5 Jo Valle RN RN vc1 Corrections: (The following items were deleted from the chart) 12/08 22:21 20:21 This is an 86 year old female with a history of chf, hlp, htn that presents to [facility] the ED with two laceration to each lower extremity. . [facility]
--- NOTE | 2021-12-08 22:25 | ER ---
Nurse's Notes [facility] Name: Minda Mcdowell Age: 86 yrs Sex: Female : 1935 Arrival Date: 12/08/2021 Time: 19:44 Bed 14 Private MD: Neo Garcia Diagnosis: Lower Extremity Laceration Presentation: 12/08 20:19 Chief complaint: Patient's son or daughter states: "Earlier today her walker hit her tw5 leg and caused a laceration. My ten year old grandson helped wrap it. Then about an hour ago I went to go pick something up off the floor that was by her leg and my finger went through her leg. We put gauze on it and wrapped it to stop the bleeding.:. Coronavirus screen: Vaccine status: Patient reports receiving the 2nd dose of the covid vaccine. Pfizer + booster. Ebola Screen: Patient negative for fever greater than or equal to 101.5 degrees Fahrenheit, and additional compatible Ebola Virus Disease symptoms Patient denies exposure to infectious person. No symptoms or risks identified at this time. Complicating Factors: The type of wound is a puncture. Initial Sepsis Screen: Does the patient meet any 2 criteria? No. Patient's initial sepsis screen is negative. Does the patient have a suspected source of infection? Yes: Skin breakdown/wound. Risk Assessment: Do you want to hurt yourself or someone else? Patient reports no desire to harm self or others. Onset of symptoms is unknown. 20:19 Method Of Arrival: Wheelchair tw5 20:19 Acuity: HARMONY 3 tw5 Triage Assessment: 20:22 General: Appears uncomfortable, obese, Behavior is calm, cooperative, appropriate for tw5 age. Historical: - Allergies: 20:22 Keflex; tw5 20:22 Levaquin; tw5 20:22 PENICILLINS; tw5 20:22 Vancomycin; tw5 - PMHx: 20:22 CHF; diabetes mellitus; heart disease; Hypercholesterolemia; Hypertensive disorder; tw5 - PSHx: 20:22 Cholecystectomy; tw5 - Immunization history:: Flu vaccine is up to date. - Social history:: Smoking status: Patient denies any tobacco usage or history of. Screenin:50 Abuse screen: Denies threats or abuse. Nutritional screening: No deficits noted. vc1 Tuberculosis screening: No symptoms or risk factors identified. Fall Risk None identified. Assessment: 20:00 Pain: Complains of pain in left leg and right leg. Musculoskeletal: Circulation, vc1 motion, and sensation intact. Injury Description: Laceration is jagged, superficial. 23:00 Reassessment: Patient and/or family updated on plan of care and expected duration. Pain vc1 level reassessed. Patient is alert, oriented x 3, equal unlabored respirations, skin warm/dry/pink. Vital Signs: 20:19 BP 118 / 65; Pulse 90; Resp 18; Temp 98; Pulse Ox 96% on R/A; Weight 81.19 kg; Height 5 tw5 ft. 7 in. (170.18 cm); 20:19 Body Mass Index 28.04 (81.19 kg, 170.18 cm) tw5 ED Course: 19:44 Patient arrived in ED. as 19:44 Neo Garcia DO is Private Physician. as 19:57 Bear Paniagua PA is PHCP. [facility] 19:58 Herberth Phillips DO is Attending Physician. [facility] 20:00 Patient has correct armband on for positive identification. Bed in low position. Call vc1 light in reach. 20:18 Briana Castellanos, CHLOÉ is Primary Nurse. ld1 20:21 Triage completed. tw5 22:50 Arm band placed on. vc1 22:50 Assist provider with laceration repair on right leg and left leg that was between 2.6 vc1 to 7.5 cm using sutures. Set up tray. Performed by Bear CASAREZ Dressed with [employer] cannon Kling, Patient tolerated well. Patient did not have IV access during this emergency room visit. 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 Exp: vc1 09/17/2023. Lot #: [id number]. } Route: IM; Site: right deltoid; 23:15 Follow up: Response: Medication administered at discharge. vc1 22:52 Drug: Lidocaine-Epinephrine -1%: (1:100,000) 20 ml Volume: 20 ml; Route: Infiltration; vc1 Site: affected area; Medication: 22:50 Vaccine Information Statement (VIS) provided today. Questions and/or concerns vc1 addressed. VIS edition date: February 11, 2022. Outcome: 22:24 Discharge ordered by MD. greer 22:51 Condition: good vc1 23:15 Discharged to home via wheelchair. vc1 23:15 Discharge instructions given to patient, commercial underwriter, Instructed on discharge instructions, follow up and referral plans. medication usage, Demonstrated understanding of instructions, follow-up care, medications, Prescriptions given X 1. 23:21 Patient left the ED. tw5 Signatures: Bear Paniagua PA PA jmm Martinez, Amelia as Dibbern, Lauren, RN RN Rossy Ferris tw5 Jo Valle RN RN vc1
[2021-12-08] MEDS ORDERED: TETANUS & DIPHTHERIA TOX,ADULT 0.5 ML VIAL ONE (22:50)
[2021-12-08 23:29] VITALS: BP 118/65; TEMP 98; O2SAT 96
== END 2021-12-08 23:21 | disposition home or self-care (01) ==
LOC: ER 19:42
PROC: 0JQP0ZZ Repair Left Lower Leg Subcutaneous Tissue and Fascia, Open Approach (ICD-10-PCS; principal; 2021-12-08)
PROC: 0JQN0ZZ Repair Right Lower Leg Subcutaneous Tissue and Fascia, Open Approach (ICD-10-PCS; 2021-12-08)
DX: S81.812A Laceration without foreign body, left lower leg, initial encounter (principal); S81.811A Laceration without foreign body, right lower leg, initial encounter; E11.9 Type 2 diabetes mellitus without complications; I10 Essential (primary) hypertension; I50.9 Heart failure, unspecified; Z23 Encounter for immunization; Z88.0 Allergy status to penicillin; Z88.1 Allergy status to other antibiotic agents; Z88.3 Allergy status to other anti-infective agents
CPT/HCPCS: 90471; 90714; 99283

== ENCOUNTER 2022-09-20 16:53 | Emergency (ER) | payer MEDICARE ==
--- OUTSIDE RECORDS SUMMARY | 2022-09-20 17:08 | XMS REPORT | Continuity of Care Document ---
:1935 Author Organization [facility] t Address [address] [place] [address]. [address] [place] [address] Care Team Providers Name Role Phone LINDSEY OLSON Primary Care Physician Unavailable Yajaira Huynh Attending Clinician Casandra --Autumn Attending Clinician PEDROSO_V Attending Clinician Unavailable Service/[place], Surgery C Attending Clinician Unavailable Ptaty Salas RN Attending Clinician Unavailable ELHAM UNDERWOOD Attending Clinician Unavailable Terell Mims MD Attending Clinician Elham Underwood MD Attending Clinician YURI DIAS Attending Clinician Unavailable Yuri Dias DO Attending Clinician Doctor Unassigned, [place] Attending Clinician Unavailable Barney Bland DO Attending Clinician Jad Gavin DO Attending Clinician Andriy Miranda Attending Clinician Gemma White MD Attending Clinician Acacia Chavez RN Attending Clinician Unavailable Only, Ang Db Test Attending Clinician Unavailable Phillip Sultana Attending Clinician PHILLIP WALL Attending Clinician Unavailable Pob, [facility] Main Attending Clinician Unavailable Lindsey Olson DO Attending Clinician WESLEYLINDSEY Attending Clinician Unavailable Skinny-Mbayo_A_AH Attending Clinician Unavailable JENNIFER MCGILL Attending Clinician Unavailable Felix Werner DO Attending Clinician Unknown, Attending Attending Clinician Unavailable JAIEDN LUNA Attending Clinician Unavailable Fabrice Serna Attending Clinician Jaiden Luna MD Attending Clinician JULITA GONZALES Attending Clinician Unavailable Kayleen Perez RN Attending Clinician Fariba Hook Attending Clinician Taina Castro MD Attending Clinician PEDROSO_V Admitting Clinician Unavailable ELHAM UNDERWOOD Admitting Clinician Unavailable Elham Underwood MD Admitting Clinician YURI DIAS Admitting Clinician Unavailable Jad Gavin DO Admitting Clinician Gemma White MD Admitting Clinician Skinny-Mbayo_A_AH Admitting Clinician Unavailable DAKOTAH ENG Admitting Clinician Unavailable Taina Castro MD Admitting Clinician Payers Payer Name Policy Type Policy Number Effective Date Expiration Date S edelmira MANAGED MEDICARE [id number] HMO GENERIC 00:00:00 [facility] [id number] 2020 (MEDICARE 00:00:00 REPLACEMENT HMO) [employer] [facility] [place] - [id number] 2019 2020 [place] (MEDICARE 00:00:00 00:00:00 REPLACEMENT/[place] - H[place]) [employer] [place] [id number] 2019 2020 CLASSIC/VALUE 00:00:00 00:00:00 Problems Condition Condition Condition Status Onset Resolution Last Treating Co mments Source Name Details Category Date Date Treatment Clinician Date Pulmonary Pulmonary Disease Active 2021-07 Uni vers hypertensi hypertensi 0-12 it y of on on 00:00: [place] 00 Medical Branch Chronic Chronic Disease Active 2021-07 Univers diastolic diastolic 0-12 ity of congestive congestive [place] heart heart 00 Medical failure failure Branch Other Other Disease Active 2021-07 Univers specified specified 0-12 ity of anemias anemias 00:00: [place] 00 Medical Branch Fall at Fall at Disease Active 2021-07 Univers home, home, 0-11 ity of initial initial 00:00: [place] encounter encounter 00 [facility] Branch Acute Acute Disease Active Univers hypoxemic hypoxemic 9-16 ity of respirator respirator [place] failure y failure 00 [facility] due to due to Branch COVID-19 COVID-19 Pneumonia Pneumonia Disease Active Uni vers due to due to 9-15 ity of COVID-19 COVID-19 00:00: [place] virus virus 00 Medical Branch COVID-19 COVID-19 Disease Active Unive rs 9-08 ity of 00:00: [place] [facility] Multiple Multiple Problem Active Sandhu ge complicati Complicati 7-10 Fa jordana ons due to ons Due to 00:00: Pr actic type 2 Type 2 00 e diabetes Diabetes mellitus Mellitus Hyperchole Hyperchole Problem Active 2019-0 V [place] sterolemia sterolemia 6-11 Fa jordana 00:00: Practic 00 e Restless Restless Problem Active 2019-0 [place] ge legs Legs 6-11 Family 00:00: Practic 00 e Hypertensi Hypertensi Problem Active 2020-0 [place] ve ve 6-11 Family disorder Disorder 00:00: Practi c 00 e Atrial Atrial Problem Active 2019-0 [place] fibrillati Fibrillati 6-11 Fa jordana on on 00:00: Practic 00 e Congestive Congestive Problem Active 2020-0 [place] heart Heart 6-11 Family failure Failure 00:00: Practic 00 e Gastroesop Gastroesop Problem Active 2020-0 [place] hageal hageal 6-11 Family reflux Reflux 00:00: Practic disease Disease 00 e without without esophagiti Esophagiti s s Fall Fall Disease Active 2018-07 Univers 2-17 ity of 00:00: [place] 00 Medical Branch Sepsis due Sepsis due Disease Active U nivers to urinary to urinary 9-03 it y of tract tract 00:00: [place] infection infection 00 [facility] Branch Fever in Fever in Disease Active Unive rs adult adult 9-02 ity of 00:00: [place] [facility] Chronic Chronic Disease Active Univers atrial atrial 4-24 ity of fibrillati fibrillati 00:00[place] Medical [place] Essential Essential Disease Active Uni vers hypertensi hypertensi 4-24 it y of on on 00:00: [place] [facility] Other Other Disease Active Univers hyperlipid hyperlipid 4-24 it y of emia emia 00:00: [place] [facility] 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 00: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 00 Medica l mellitus) mellitus) Bran ch Bronchitis Bronchitis Disease Active U nivers 4-24 ity of 00:00: [place] [facility] Acute Acute Disease Active Univers exacerbati exacerbati 4-23 it y of on of CHF on of CHF 00:00[place] (congestiv (congestiv 00 Me dical e heart e heart Branch failure) failure) Acute Acute Disease Active Univers exacerbati exacerbati 4-23 it y of on of CHF on of CHF 00:00: [place] (congestiv (congestiv 00 Me dical e heart e heart Branch failure) failure) Heart Heart Disease Active Univers failure, failure, 4-23 ity of acute on acute on 00:00: [place] chronic, chronic, 00 Medica l systolic systolic Branch and and diastolic diastolic Cellulitis Cellulitis Disease Active 2017-07 U nivers of right of right 2-29 ity of leg leg 00:00: [place] [address] Medical Branch 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) Bran ch Hypotensio Hypotensio Disease Active U nivers n n 6-30 ity of 00:00: [place] [facility] 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 5-15 it y of is is 00:00: [place] [address] Medical Branch Pseudogout Pseudogout Disease Active U nivers 5-15 ity of 00:00: [place] [address] Medical Branch Delirium Delirium Disease Active Unive rs due to due to 5-15 ity of another another 00:00: [place] medical medical 00 Medical condition condition Bran ch Chronic Chronic Disease Active Univers combined combined 5-10 ity of systolic systolic 00:00: [place] and and Medical diastolic diastolic Bran ch CHF, NYHA [...] IN INGREDI 2-05 ity of 00:00: [place] [facility] Vancomyc Propensi Active Rash Univer s in ty to 2-05 ity of adverse 00:00: [place] reaction 00 Medical s Branch LEVOFLOX DRUG Active Rash Univers ACIN INGREDI 5-14 ity of 00:00: [place] [facility] Levoflox Propensi Active Rash Univer s acin ty to 5-14 ity of adverse 00:00: [place] reaction 00 Medical s Branch PENICILL Drug Active Swelling Univer s INS Class 6-13 ity of 00:00: [place] [facility] Penicill Propensi Active Swelling Univ [...] s Branch ADHESIVE DRUG Active ITCHING Univers TAPE-TERSEA 16 ity of ICONES 00:00: [place] [facility] CEPHALEX DRUG Active Swelling Univer s IN INGREDI 16 ity of 00:00: [place] [facility] Adhesive [...] Start Date Stop Date Quantity Comments Source History of tobacco Cigarette Smoker University of use [facility] Exposure to 2022-04-08 2022-04-18 Not sure University SARS-CoV-2 (event) 00:00:00 19:46:00 [facility] Education 2022-04-18 2022-04-18 13 University of 00:00:00 00:00:00 [facility] Alcohol intake 2022-04-18 2022-04-18 Current University of 00:00:00 00:00:00 non-drinker of [facility] alcohol Branch (finding) Cigarettes smoked 2021-03-16 2021-03-16 Univers ity of current (pack per 00:00:00 00:00:00 ) - Reported Branch Cigarette 2021-03-16 2021-03-16 University of pack-years 00:00:00 00:00:00 [facility] Tobacco Comment 2021-03-16 2021-03-16 Quit in 1995 Univers ity of 00:00:00 00:00:00 [facility] Tobacco use and 2021-03-16 2021-03-16 Smokeless Universit y of exposure 00:00:00 00:00:00 tobacco non-user [facility] Branch History SDOH 2019-03-11 2019-03-11 5 University o f Financial 00:00:00 00:00:00 [place] [facility] History [facility] Food 2019-03-11 2019-03-11 1 Univers ity of Worry 00:00:00 00:00:00 [place] [facility] History [facility] Food 2019-03-11 2019-03-11 1 Univers ity of Scarcity 00:00:00 00:00:00 [place] [facility] History [facility] 2019-03-11 2019-03-11 2 University o f Transport Med 00:00:00 00:00:00 [place] Medic al Branch History [facility] 2019-03-11 2019-03-11 2 University o f Transport Non-Med 00:00:00 00:00:00 [facility] edical Branch Sex [birth year] At [birth year] Universit y of 00:00:00 00:00:00 [facility] Smoking Status Start Date Stop Date Source Ex-smoker 2021-03-16 00:00:00 2021-03-16 00:00:00 [facility] Medications Ordered Filled Start Stop Current Ordering Indication Dosage Frequency Signature Comments Components Source Medication Medication Date Date Medication? Clinician (SIG) Name Name digoxin 125 2021-07- No [id number] 125ug Take 1 Univers mcg (0.125 0-17 11-17 9103 tablet by ity of mg) tablet 00:00: 05:59 mouth [place] 00 :00 every Medical Sunday, Branch Sunday and Sunday for 30 days. digoxin 125 2021-07- No [id number] 125ug Take 1 Univers mcg (0.125 0-17 11-17 9103 tablet by ity of mg) tablet 00:00: 05:59 mouth [place] 00 :00 every Medical Sunday, Branch Sunday and Sunday for 30 days. digoxin 125 2021-07- No [id number] 125ug Take 1 Univers mcg (0.125 0-17 11-17 9103 tablet by ity of mg) tablet 00:00: 05:59 mouth [place] 00 :00 every Medical Sunday, Branch Sunday and Sunday for 30 days. docusate 2021-07- No [id number] 100mg Take 1 U nivers 100 mg 0-16 11-16 capsule by ity of capsule 00:00: 05:59 mouth in [place] 00 :00 the Medical [facility] Branch for 30 days. docusate 2021-07- No [id number] 100mg Take 1 U nivers 100 mg 0-16 11-16 capsule by ity of capsule 00:00: 05:59 mouth in [place] 00 :00 the Medical morning Branch for 30 days. docusate 2021-07- No [id number] 100mg Take 1 U nivers 100 mg 0-16 11-16 capsule by ity of capsule 00:00: 05:59 mouth in [place] 00 :00 the Medical morning Branch for 30 days. flu 2021-07 Yes .5mL 0.5 mL, Univers vaccine, 0-15 Intramuscu ity o f adjuvanted, 17:34: lar, [place] 66 years 01 ONCE-PRIOR Medic al and up (PF) TO Branch (FLUAD QUAD DISCHARGE, (66Y 1 dose, UP)(PF)) Starting syringe 0.5 on Sat mL 04/22/22 at 1234, Until Discontinu ed, Routine, Give vaccine prior to discharge lactulose 2021-07- No 30mL 30 mL, Unive rs (CEPHULAC) 0-15 10-15 Oral, ity of solution 30 15:30: 15:03 ONCE, 1 [place] mL 00 :00 dose, On Medical Sat Branch 04/22/22 at 1030, Routine ascorbic 2021-07 Yes 500mg Take 500 Univ ers acid, 0-15 mg by ity of vitamin C, 14:15: mouth [place] 500 mg 10 daily. Medical tablet Branch SITagliptin 2021-07 Yes 100mg Take 100 U nivers 100 mg 0-15 mg by ity of tablet 14:15: mouth [place] 10 daily. Medical Branch insulin 2021-07 Yes 20U inject 20 Unive rs glargine,hu 0-15 Units ity of m.rec.anlog 14:15: under the [place] (BASAGLAR 10 skin 2 Medical KWIKPEN (two) Branch U-100 times INSULIN SC) daily. ascorbic 2021-07 Yes 500mg Take 500 Univ ers acid, 0-15 mg by ity of vitamin C, 14:15: mouth [place] 500 mg 10 daily. Medical tablet Branch SITagliptin 2021-07 Yes 100mg Take 100 U nivers 100 mg 0-15 mg by ity of tablet 14:15: mouth [place] 10 daily. Medical Branch insulin 2021-07 Yes 20U inject 20 Unive rs glargine,hu 0-15 Units ity of m.rec.anlog 14:15: under the [place] (BASAGLAR 10 skin 2 Medical KWIKPEN (two) Branch U-100 times INSULIN SC) daily. ascorbic 2021-07 Yes 500mg Take 500 Univ ers acid, 0-15 mg by ity of vitamin C, 14:15: mouth [place] 500 mg 10 daily. Medical tablet Branch SITagliptin 2021-07 Yes 100mg Take 100 U nivers 100 mg 0-15 mg by ity of tablet 14:15: mouth [place] 10 daily. Medical Branch insulin 2021-07 Yes 20U inject 20 Unive rs glargine,hu 0-15 Units ity of m.rec.anlog 14:15: under the [place] (BASAGLAR 10 skin 2 Medical KWIKPEN (two) Branch U-100 times INSULIN SC) daily. empaglifloz 2021-07- No Take by Un adali in 0-15 10-15 mouth. ity of (JARDIANCE 14:15: 00:00 [place] ORAL) 08 :00 Medical Branch gabapentin 2021-07- No [id number] 300mg Take 1 Univers 300 mg 0-15 11-15 9100 capsule by ity of capsule 00:00: 05:59 mouth at [place] 00 :00 bedtime Medical for 30 Branch days. rOPINIRole 2021-07- No [id number] 2mg Take 1 Univers 2 mg tablet 0-15 11-15 9103 tablet by it y of 00:00: 05:59 mouth in [place] 00 :00 the Medical morning Branch and 1 tablet at noon and 1 tablet in the evening. Do all this for 30 days. carvediloL 2021-07- No [id number] 6.25mg Take 1 Univers 6.25 mg 0-15 11-15 tablet by ity of tablet 00:00: 05:59 mouth in [place] 00 :00 the Medical morning Branch and 1 tablet in the evening. Take with meals. Do all this for 30 days. gabapentin 2021-07- No [id number] 300mg Take 1 Univers 300 mg 0-15 11-15 9100 capsule by ity of capsule 00:00: 05:59 mouth at [place] 00 :00 bedtime Medical for 30 Branch days. rOPINIRole 2021-07- No [id number] 2mg Take 1 Univers 2 mg tablet 0-15 11-15 9103 tablet by it y of 00:00: 05:59 mouth in [place] 00 :00 the Medical morning Branch and 1 tablet at noon and 1 tablet in the evening. Do all this for 30 days. carvediloL 2021-07- No [id number] 6.25mg Take 1 Univers 6.25 mg 0-15 11-15 tablet by ity of tablet 00:00: 05:59 mouth in [place] 00 :00 the [facility] morning [place] and 1 tablet in the evening. Take with meals. Do all this for 30 days. gabapentin 2021-07- No [id number] 300mg Take 1 Univers 300 mg 0-15 11-15 9100 capsule by ity of capsule 00:00: 05:59 mouth at [place] 00 :00 bedtime Medical for 30 Branch days. rOPINIRole 2021-07- No [id number] 2mg Take 1 Univers 2 mg tablet 0-15 11-15 9103 tablet by it y of 00:00: 05:59 mouth in [place] 00 :00 the [facility] morning [place] and 1 tablet at noon and 1 tablet in the evening. Do all this for 30 days. carvediloL 2021-07- No [id number] 6.25mg Take 1 Univers 6.25 mg 0-15 11-15 tablet by ity of tablet 00:00: 05:59 mouth in [place] 00 :00 the [facility] and 1 tablet in the evening. Take with meals. Do all this for 30 days. digoxin 125 2021-07- No [id number] 125ug Take 1 Univers mcg (0.125 0-15 10-15 9103 tablet by ity of mg) tablet 00:00: 00:00 mouth [place] :00 the Medical morning. Branch carvediloL 2021-07- No [id number] 12.5mg Take 1 Univers 12.5 mg 0-15 10-15 9103 tablet by ity of tablet 00:00: 00:00 mouth in [place] 00 :00 the Medical morning [place] and 1 tablet in the evening. Take with meals. Do all this for 30 days. traMADoL 2021-07 Yes 100mg 100 mg, Unive rs (ULTRAM) 0-14 Oral, ity of tablet 100 02:49: Q6HPRN, [place] mg 09 Starting Medical on [facility] 04/20/22 at 2149, Until Discontinu ed, Routine, Pain (scale 7-10) traMADoL 2021-07 Yes 50mg 50 mg, Univers (ULTRAM) 0-14 Oral, ity of tablet 50 02:48: Q6HPRN, [place] mg 56 Starting Medical on [facility] 04/20/22 at 2148, Until Discontinu ed, Routine, Pain (scale 4-6) sennosides 2021-07 No 8.6mg 8.6 mg, Un adali (SENOKOT) 0-13 -13 Oral, ity of tablet 8.6 17:00: 16:51 ONCE, 1 [place] as mg 00 :00 dose, On Medical [facility] 04/20/22 at 1200, Routine docusate 2021-07 Yes 100mg 100 mg, Unive rs (COLACE) 0-13 Oral, ity of capsule 100 16:00: DAILY, [place] mg 00 First dose Medical on [facility] 04/20/22 at 1100, Until Discontinu ed, Routine pramipexole 2021-07 Yes 1.5mg 1.5 mg, Un adali (MIRAPEX) 0-12 Oral, TID, ity of tablet 1.5 19:00: First dose [place] mg 00 (after Medical last Branch modificati on) on Sun04/19/22 at 1400, Until Discontinu ed SITagliptin 2021-07 Yes 100mg 100 mg, Un adali (JANUVIA) 0-12 Oral, ity of tablet 100 14:00: DAILY, [place] mg 00 First dose Medical on Sun Branch 04/19/22 at 0900, Until Discontinu ed, Routine digoxin 2021-07 Yes 125ug 125 mcg, Unive rs (LANOXIN) 0-12 Oral, ity of tablet 125 14:00: QMON/SUNS/ [place] mcg 00 SUN, First Medical dose on Branch Sun04/19/22 at 0900, Until Discontinu ed, Routine carvediloL 2021-07 Yes 6.25mg 6.25 mg, U nivers (COREG) 0-12 Oral, BID ity of tablet 6.25 13:15: MEALS, [place] mg 00 First dose Medical (after Branch last modificati on) on Sun04/19/22 at 0815, Until Discontinu ed, Routine Sliding 2021-07 Yes Subcutaneo Univ ers Scale 0-12 us, AC+HS, ity of Insulin-Reg 02:00: First dose [place] ular + [facility] Branch at 2100, Until Discontinu ed, Routine gabapentin 2021-07 Yes 300mg 300 mg, Uni vers (NEURONTIN) 0-12 Oral, QHS, it y of capsule 300 02:00: First dose [place] mg 00 on [facility] 04/18/22 Branch at 2100, Until Discontinu ed, Routine atorvastati 2021-07 Yes 40mg 40 mg, Univ ers n (LIPITOR) 0-12 Oral, QHS, it y of tablet 40 02:00: First dose [place] mg 00 on [facility] 04/18/22 Branch at 2100, Until Discontinu ed, Routine pramipexole 2021-07- No 1mg 1 mg, Univ ers (MIRAPEX) 0-12 10-12 Oral, TID, ity of tablet 1 mg 01:00: 17:56 First dose [place] 00 :32 on [facility] 04/18/22 Branch at 2000, Until Discontinu ed glucagon 2021-07 Yes 1mg 1 mg, Univers (GLUCAGEN 0-11 Intramuscu ity of DIAGNOSTIC 23:42: [place], PRN, [place] KIT) 59 Starting Medical injection 1 on [facility] mg 04/18/22 at 1842, Until Discontinu ed, SELINA, Blood Glucose < or = 70 mg/dL and patient is unable to swallow or has mental changes. dextrose 50 2021-07 Yes 25mL 25 mL, Univ ers % in water 0-11 Slow IV ity of (D50W) 23:42: Push, PRN, [place] injection 59 Starting Medica l 25 mL on [facility] 04/18/22 at 1842, Until Discontinu ed, SELINA, Blood Glucose < or = 70 mg/dL and patient is unable to swallow or has mental status changes. acetaminoph 2022-1 Yes 650mg 650 mg, Un adali en 0-11 Oral, ity of (TYLENOL) 22:43: Q6HPRN, [place] tablet 650 59 Starting Medic al mg on [facility] 04/18/22 at 1743, Until Discontinu ed, Routine, Pain (scale 1-3) methocarbam 2021-07- No 500mg 500 mg, U nivers oL 0-11 -11 Oral, ity of (ROBAXIN) 21:15: 21:19 ONCE, 1 [place] tablet 500 00 :00 dose, On Medic al mg [facility] 04/18/22 at 1615, SELINA acetaminoph 2021-07- No 650mg 650 mg, U nivers en 011 Oral, ity of (TYLENOL) 21:00: 21:19 ONCE, 1 [place] tablet 650 00 :00 dose, On Medic al mg [facility] 04/18/22 at 1600, SELINA HYDROcodone 2020- No 1{tbl} 1 tablet, Univers -acetaminop 04-06 Oral, ity of hen (NORCO 15:15: 14:11 ONCE, 1 [place] as 5) 5-325 mg 00 :00 dose, On Medi micky tablet 1 [facility] Branch tablet 04/06/21 at 1015, SELINA bumetanide 2020- No [id number] 1mg Take 1 Univers 1 mg tablet 03-30 [id number] tablet by ity of 00:00: 04:59 mouth [place] 00 :00 daily for Medical 30 days. Branch bumetanide 2020- No [id number] 1mg Take 1 Univers 1 mg tablet 03-30 [id number] tablet by ity of 00:00: 04:59 mouth [place] 00 :00 daily for Medical 30 days. Branch bumetanide 2020- No [id number] 1mg Take 1 Univers 1 mg tablet 03-30 [id number] tablet by ity of 00:00: 04:59 mouth [place] 00 :00 daily for Medical 30 days. Branch bumetanide 2020- No [id number] 1mg Take 1 Univers 1 mg tablet 03-30 [id number] tablet by ity of 00:00: 04:59 mouth [place] 00 :00 daily for Medical 30 days. Branch bumetanide 2020- No [id number] 1mg Take 1 Univers 1 mg tablet 03-30 [id number] tablet by ity of 00:00: 04:59 mouth [place] 00 :00 daily for Medical 30 days. Branch bumetanide 2020- No [id number] 1mg Take 1 Univers 1 mg tablet 03-30 [id number] tablet by ity of 00:00: 04:59 mouth [...] [place] tablet 01 daily. Medical Branch ascorbic 2020-0 Yes 500mg Take [...] [place] 00 First dose Medical on [facility] 03/29/21 at 0900, Until Discontinu ed, Routine bumetanide Yes 1mg 1 mg, Univer s (BUMEX) 03-29 Oral, ity of tablet 1 mg 14:00: DAILY, [place] 00 First dose Medical on [facility] 03/29/21 at 0900, Until Discontinu ed, Routine furosemide 0 2020- No 40mg Take 40 mg Univers (LASIX) 40 03-29 by mouth ity of mg tablet 12:56: 00:00 daily. [place] 46 :00 Medical Branch amLODIPine 2020- No 5mg Take 5 mg U nivers 5 mg tablet 03-29 by mouth ity of 12:56: 00:00 daily. [place] [address] :00 [facility] Branch furosemide 2020- No 40mg Take 40 mg Univers (LASIX) 40 03-29 by mouth ity of mg tablet 12:56: 00:00 daily. [place] [address] :00 [facility] amLODIPine 2020- No 5mg Take 5 mg U nivers 5 mg tablet 03-29 by mouth ity of 12:56: 00:00 daily. [place] [address] :00 [facility] Branch albuterol-i 2020- No [id number] 1{puff} Inhale 1 Univers pratropium 03-29 [id number] Puff every ity of 20-100 00:00: 04:59 6 (six) [place] mcg/actuati 00 :00 hours for Med ical on inhaler 30 days. Branc h benzonatate 2020- No [id number] 100mg Take 1 Univers 100 mg 03-29 [id number] capsule by ity of capsule 00:00: 04:59 mouth 3 [place] 00 :00 (three) Medical times [place] daily as needed for Cough for up to 30 days. albuterol-i 2020- No [id number] 1{puff} Inhale 1 Univers pratropium 03-29 [id number] Puff every ity of 20-100 00:00: 04:59 6 (six) [place] mcg/actuati 00 :00 hours for Med ical on inhaler 30 days. Branc h benzonatate 2020- No [id number] 100mg Take 1 Univers 100 mg 03-29 [id number] capsule by ity of capsule 00:00: 04:59 mouth 3 [place] 00 :00 (three) Medical times [place] daily as needed for Cough for up to 30 days. albuterol-i 2020- No [id number] 1{puff} Inhale 1 Univers pratropium -04-29 [id number] Puff every ity of 20-100 00:00: 04:59 6 (six) [place] mcg/actuati 00 :00 hours for Med ical on inhaler 30 days. Branc h benzonatate 2020- No [id number] 100mg Take 1 Univers 100 mg -04-29 [id number] capsule by ity of capsule 00:00: 04:59 mouth 3 [place] 00 :00 (three) Medical times Branch daily as needed for Cough for up to 30 days. albuterol-i 2020- No [id number] 1{puff} Inhale 1 Univers pratropium -04-29 [id number] Puff every ity of 20-100 00:00: 04:59 6 (six) [place] mcg/actuati 00 :00 hours for Med ical on inhaler 30 days. Branc h benzonatate 2020- No [id number] 100mg Take 1 Univers 100 mg -04-29 [id number] capsule by ity of capsule 00:00: 04:59 mouth 3 [place] 00 :00 (three) Medical times Branch daily as needed for Cough for up to 30 days. albuterol-i 2020- No [id number] 1{puff} Inhale 1 Univers pratropium -04-29 [id number] Puff every ity of 20-100 00:00: 04:59 6 (six) [place] mcg/actuati 00 :00 hours for Med ical on inhaler 30 days. Branc h benzonatate 2020- No [id number] 100mg Take 1 Univers 100 mg 03-29 [id number] capsule by ity of capsule 00:00: 04:59 mouth 3 [place] 00 :00 (three) Medical times Branch daily as needed for Cough for up to 30 days. albuterol-i 2020- No [id number] 1{puff} Inhale 1 Univers pratropium 9-04-29 [id number] Puff every ity of 20-100 00:00: 04:59 6 (six) [place] mcg/actuati 00 :00 hours for Med ical on inhaler 30 days. Branc h benzonatate 2020- No [id number] 100mg Take 1 Univers 100 mg 03-29 [id number] capsule by ity of capsule 00:00: 04:59 mouth 3 [place] 00 :00 (three) Medical times Branch daily as needed for Cough for up to 30 days. diphenhydrA 2020- No [id number] 25mg Take 1 Univers MINE 25 mg 03-29 [id number] tablet by ity of tablet 00:00: 04:59 mouth [place] 00 :00 every 4 Medical (four) Branch hours as needed for Itching for up to 7 days. diphenhydrA 2020- No [id number] 25mg Take 1 Univers MINE 25 mg 03-29 [id number] tablet by ity of tablet 00:00: 04:59 mouth [place] 00 :00 every 4 Medical (four) Branch hours as needed for Itching for up to 7 days. diphenhydrA 2020- No [id number] 25mg Take 1 [facility] MINE 25 mg 03-29 [id number] tablet by ity of tablet 00:00: 04:59 mouth [place] 00 :00 every 4 Medical (four) Branch hours as needed for Itching for up to 7 days. diphenhydrA 2020- No [id number] 25mg Take 1 [facility] MINE 25 mg 03-29 [id number] tablet by ity of tablet 00:00: 04:59 mouth [place] 00 :00 every 4 Medical (four) Branch hours as needed for Itching for up to 7 days. fludrocorti 2020- No .2mg 0.2 mg, Un adali sone 03-28 Oral, ONCE ity of (FLORINEF) 16:15: 15:45 NOW, 1 [place] tablet 0.2 00 :00 dose, On Medic al mg Mon Branch 03/28/21 at 1115, Routine fludrocorti 2020- No .2mg 0.2 mg, Un adali sone 03-28 Oral, ONCE ity of (FLORINEF) 16:15: 15:45 NOW, 1 [place] tablet 0.2 00 :00 dose, On Medic al mg Mon Branch 03/28/21 at 1115, Routine sodium 2020- No 1g 1 g, Oral, Univ ers chloride 03-28 QID, 4 ity of tablet 1 g 15:30: 12:54 doses, [place] 00 :[place] First dose Medical on [facility] 03/28/21 at 1030, Last dose on [facility] 03/28/21 at 2000, Routine sodium 2020-2020- No 1g 1 g, Oral, Univ ers chloride 03-28 QID, 4 ity of tablet 1 g 15:30: 12:54 doses, [place] 00 :00 First dose Medical on [facility] 03/28/21 at 1030, Last dose on [facility] 03/28/21 at 2000, Routine NaCl 0.9% 2020- No 500mL at 50 Unive rs (NS) IV 03-27 09-19 mL/hr, IV ity of infusion 17:30: 16:47 Infusion, [place] 500 mL 00 :00 ONCE, 1 Medical dose, On [facility] 03/27/21 at 1230, Routine NaCl 0.9% 2020- No 500mL at 50 Unive rs (NS) IV 03-27 09-19 mL/hr, IV ity of infusion 17:30: 16:47 Infusion, [place] 500 mL 00 :00 ONCE, 1 Medical dose, On [facility] 03/27/21 at 1230, Routine albuterol-i Yes 1{puff} 1 Puff, Univers pratropium 9-17 Inhalation ity of (COMBIVENT 17:00: , Q6H, [place] RESPIMAT) 00 First dose Medi micky 20-100 on Sun Branch mcg/actuati 03/25/21 at on inhaler 1200, 1 Puff Until Discontinu ed, Routine
Is this order for a patient with suspected or confirmed COVID-19 infection? Yes albuterol-i Yes 1{puff} 1 Puff, Univers pratropium 9-17 Inhalation ity of (COMBIVENT 17:00: , Q6H, [place] RESPIMAT) 00 First dose Medi micky 20-100 on Sun Branch mcg/actuati 03/25/21 at on inhaler 1200, 1 Puff Until Discontinu ed, Routine
Is this order for a patient with suspected or confirmed COVID-19 infection? Yes codeine-gua 2020-0 Yes 10mL 10 mL, Univ [...] at 0900, Until Discontinu ed, Routine digoxin 0 Yes 125ug 125 mcg, Unive rs (LANOXIN) 03-25 Oral, ity of tablet 125 14:00: QMON/WEDS/ [place] mcg 00 SUN, First Medical dose on Branch Sun03/25/21 at 0900, Until Discontinu ed, Routine diphenhydrA 2020-0 Yes 25mg 25 mg, Univ ers MINE 03-24 Oral, ity of (BENADRYL) 21:00: Q4HPRN, [place] tablet 25 12 Starting Medica l mg on [facility] 03/24/21 at 1600, Until Discontinu ed, Routine, Itching diphenhydrA 2020-0 Yes 25mg 25 mg, Univ ers MINE 03-24 Oral, ity of (BENADRYL) 21:00: Q4HPRN, [place] tablet 25 12 Starting Medica l mg on [facility] 03/24/21 at 1600, Until Discontinu ed, Routine, Itching SITagliptin 2020-0 Yes 100mg 100 mg, Un adali (JANUVIA) 03-24 Oral, ity of tablet 100 14:00: DAILY, [place] mg 00 First dose Medical on [facility] 03/24/21 at 0900, Until Discontinu ed, Routine omeprazole 2020-0 Yes 40mg 40 mg, Unive rs (PRILOSEC) 16 Oral, ity of capsule 40 14:00: DAILY, [place] mg 00 First dose Medical on [facility] 03/24/21 at 0900, Until Discontinu ed ascorbic 2020-0 Yes 500mg 500 mg, Unive rs acid 03-24 Oral, ity of (vitamin C) 14:00: DAILY, [place] (VITAMIN C) 00 First dose Me dical tablet 500 on [facility] mg 03/24/21 at 0900, Until Discontinu ed, Routine SITagliptin 2020-0 Yes 100mg 100 mg, Un adali (JANUVIA) 03-24 Oral, ity of tablet 100 14:00: DAILY, [place] mg 00 First dose Medical on [facility] 03/24/21 at 0900, Until Discontinu ed, Routine omeprazole 0 Yes 40mg 40 mg, Unive rs (PRILOSEC) 03-24 Oral, ity of capsule 40 14:00: DAILY, [place] mg 00 First dose Medical on [facility] 03/24/21 at 0900, Until Discontinu ed ascorbic 2020-0 Yes 500mg 500 mg, Unive rs acid 03-24 Oral, ity of (vitamin C) 14:00: DAILY, [place] (VITAMIN C) 00 First dose Me dical tablet 500 on [facility] mg 03/24/21 at 0900, Until Discontinu ed, Routine amLODIPine 2020-0 2021- No 5mg 5 mg, Unive rs (NORVASC) 03-24 Oral, ity of tablet 5 mg 14:00: 15:14 DAILY, [place] 00 :12 First dose Medical on [facility] 03/24/21 at 0900, Until Discontinu ed, Routine amLODIPine 2020-0 2021- No 5mg 5 mg, Unive rs (NORVASC) 03-24 Oral, ity of tablet 5 mg 14:00: 15:14 DAILY, [place] 00 :12 First dose Medical on [facility] 03/24/21 at 0900, Until Discontinu ed, Routine gabapentin 2020-0 Yes 300mg 300 mg, Uni vers (NEURONTIN) 03-24 Oral, QHS, it y of capsule 300 02:00: First dose [place] mg 00 on Sun03/23/21 at [place] 2100, Until Discontinu ed, Routine atorvastati 202-0 Yes 40mg 40 mg, Univ ers n (LIPITOR) 9-16 Oral, QHS, it y of tablet 40 02:00: First dose [place] mg 00 on Sun03/23/21 at [place] 2100, Until Discontinu ed, Routine gabapentin 1-0 Yes 300mg 300 mg, Uni vers (NEURONTIN) 9-16 Oral, QHS, it y of capsule 300 02:00: First dose [place] mg 00 on Sun03/23/21 at [place] 2100, Until Discontinu ed, Routine atorvastati 2020-0 Yes 40mg 40 mg, Univ ers n (LIPITOR) 9-16 Oral, QHS, it y of tablet 40 02:00: First dose [place] mg 00 on Sun03/23/21 at [place] 2100, Until Discontinu ed, Routine pramipexole 2020-0 Yes 1mg 1 mg, Unive rs (MIRAPEX) 9-16 Oral, TID, ity of tablet 1 mg 01:00: First dose [place] 00 on Sun03/23/21 at [place] 2000, Until Discontinu ed
Facu lty member approving Restricted medication : JAD GAVIN apixaban 2020-0 Yes 5mg 5 mg, Univers (ELIQUIS) 9-16 Oral, BID, ity of tablet 5 mg 01:00: First dose [place] 00 on Sun03/23/21 at [place] 2000, Until Discontinu ed, Routine pramipexole 2020-0 Yes 1mg 1 mg, Unive rs (MIRAPEX) 9-16 Oral, TID, ity of tablet 1 mg 01:00: First dose [place] 00 on Sun03/23/21 at [place] 1999, Until Discontinu ed
Facu lty member approving Restricted medication : JAD GAVIN apixaban 2020-0 Yes 5mg 5 mg, Univers (ELIQUIS) 9-16 Oral, BID, ity of tablet 5 mg 01:00: First dose [place] 00 on Sun [facility] 03/23/21 at [place] 1999, Until Discontinu ed, Routine benzonatate 2020-0 Yes [...] Branch 1800, Until Discontinu ed, Routine carvediloL 0 Yes 25mg 25 mg, Unive rs (COREG) 9-15 Oral, BID ity of tablet 25 22:00: MEALS, [place] mg 00 First dose Medical on Sun03/23/21 at 1700, Until Discontinu ed, Routine carvediloL Yes 25mg 25 mg, Unive rs (COREG) 9-15 Oral, BID ity of tablet 25 22:00: MEALS, [place] mg 00 First dose Medical on Sun [place] 03/23/21 at 1700, Until Discontinu ed, Routine [...] Starting Medica l 25 mL on Sun [place] 03/23/21 at 1448, Until Discontinu ed, SELINA, [...] has mental status changes. iopamidol 2020- No [id number] 100mL 100 mL, Univers (ISOVUE 03-23 [id number] Intravenou it y of 370-500 mL) 17:00: 15:48 s, ONCE, 1 [place] injection 00 :00 dose, On Medica l 100 mL Wed Branch 03/23/21 at 1200, Routine iopamidol 2020- No [id number] 100mL 100 mL, Univers (ISOVUE 03-23 [id number] Intravenou it y of 370-500 mL) 17:00: 15:48 s, ONCE, 1 [place] injection 00 :00 dose, On Medica l 100 mL Wed Branch 03/23/21 at 1200, Routine bumetanide 2020- No 1.25mg 1.25 mg, Univers (BUMEX) 03-23 Slow IV ity of injection 16:30: 15:14 Push, [place] 1.25 mg 00 :12 Q24H, Medical First dose Branch on Sun03/23/21 at 1130, Until Discontinu ed, Routine bumetanide 2020- No 1.25mg 1.25 mg, Univers (BUMEX) 9-15 09-20 Slow IV ity of injection 16:30: 15:14 Push, [place] 1.25 mg 00 :12 Q24H, Medical First dose Branch on Sun03/23/21 at 1130, Until Discontinu ed, Routine insulin 2020- No 16U inject 16 [facility] ers degludec 03-23-15 Units ity of (TRESIBA 15:06: 00:00 under the [place] FLEXTOUCH 03 :00 skin. Medical U-100) 100 Branch unit/mL (3 mL) InPn insulin 2020- No 16U inject 16 [facility] ers degludec 03-23-15 Units ity of (TRESIBA [...] (rounded ity of (LANTUS 02:00: from 28.8 [place] U-100) 00 Units = Medical injection 0.3 Branch 29 Units Units/kg/d ay ?96 kg), Subcutaneo us, QHS, First dose (after last modificati on) on Sun03/17/21 at 2100, Until Discontinu ed, Routine insulin Yes .3U/kg/ 29 Units Uni vers glargine 9-10 d (rounded ity of (LANTUS 02:00: from 28.8 [place] U-100) 00 Units = Medical injection 0.3 Branch 29 Units Units/kg/d ay ?96 kg), Subcutaneo us, QHS, First dose (after last modificati on) on Sun03/17/21 at 2100, Until Discontinu ed, Routine ascorbic 0 Yes 500mg Take 500 Univ ers acid, 9-10 mg by ity of vitamin C, 00:03: mouth [place] (VITAMIN C) 37 daily. Medica l 500 mg Branch tablet insulin Yes 16U inject 16 Unive rs degludec 9-10 Units ity of (TRESIBA 00:03: under the [facility] s FLEXTOUCH 37 skin. Medical U-100) 100 Branch unit/mL (3 mL) InPn SITagliptin 0 Yes 100mg Take 100 U nivers (JANUVIA) 9-10 mg by ity of 100 mg 00:03: mouth [place] tablet 37 daily. Medical Branch furosemide 0 Yes 40mg Take 40 mg U nivers (LASIX) 40 9-10 by mouth ity o f mg tablet 00:03: daily. [place] [address] Medical Branch amLODIPine 0 Yes 5mg Take 5 mg Un adali 5 mg tablet 9-10 by mouth ity of 00:03: daily. [place] [address] Medical Branch ascorbic 0 Yes 500mg Take 500 Univ ers acid, 9-10 mg by ity of vitamin C, 00:03: mouth [place] (VITAMIN C) 37 daily. Medica l 500 mg Branch tablet insulin 0 Yes 16U inject 16 Unive rs degludec 9-10 Units ity of (TRESIBA 00:03: [facility]. Medical U-100) 100 Branch unit/mL (3 mL) InPn SITagliptin 0 Yes 100mg Take 100 U nivers (JANUVIA) 9-10 mg by ity of 100 mg 00:03: mouth [place] tablet 37 daily. Medical Branch furosemide 0 Yes 40mg Take 40 mg U nivers (LASIX) 40 9-10 by mouth ity o f mg tablet 00:03: daily. [place] [address] Medical Branch amLODIPine 2020-0 Yes 5mg Take 5 mg Un adali 5 mg tablet 9-10 by mouth ity of 00:03: daily. [place] [address] Medical Branch ascorbic 2020-0 Yes 500mg Take 500 Univ ers acid, 9-10 mg by ity of vitamin C, 00:03: mouth [place] (VITAMIN C) 37 daily. Medica l 500 mg Branch tablet insulin 0 Yes 16U inject 16 Unive rs degludec 9-10 Units ity of (TRESIBA [facility]:03[facility]) 100 Branch unit/mL (3 mL) InPn SITagliptin 0 Yes 100mg Take 100 U nivers (JANUVIA) 9-10 mg by ity of 100 mg 00:03: mouth [place] tablet 37 daily. Medical Branch furosemide 2020-0 Yes 40mg Take 40 mg U nivers (LASIX) 40 9-10 by mouth ity o f mg tablet 00:03: daily. [place] [address] Medical Branch amLODIPine 2020-0 Yes 5mg Take 5 mg Un adali 5 mg tablet 9-10 by mouth ity of 00:03: daily. [place] [address] Medical Branch ascorbic 2020-0 Yes 500mg Take [...] ity o f mg tablet 00:03: daily. [place] [address] Medical Branch amLODIPine Yes 5mg Take 5 mg Un adali 5 mg tablet 9-10 by mouth ity of 00:03: daily. [place] [address] Medical Branch sulfur 2020- No [id number] 5mL 5 mL, [facility] ers hexafluorid 03-17 Intravenou i ty of e microsphr 21:45: 19:50 s, ONCE, 1 [place] (LUMASON) 00 :00 dose, [place] Medic al injection 5 03/17/21 at [facility] mL 1645, Routine
member service specialist approving Restricted medication : EILEENROCÍOZEKE sulfur 2020- No [id number] 5mL 5 mL, Univ ers hexafluorid 03-17 Intravenou i ty of e microsphr 21:45: 19:50 s, ONCE, 1 [place] (LUMASON) 00 :00 dose, [place] Medic al injection 5 03/17/21 at [facility] mL 1645, Routine
member service specialist approving Restricted medication : EILEENROCÍOZEKE remdesivir 2020- No 100mg 100 mg, IV Univers 100 mg in 03-17 Infusion, ity of NaCl 0.9% 21:00: 20:59 DAILY AT [facility] as (NS) 100 mL 00 :00 1600, [...] of NaCl 0.9% 21:00: 20:59 DAILY AT [place] as (NS) 100 mL 00 :00 1600, 4 Medic al MINI-BAG doses, Branch First dose on [facility] 03/17/21 at 1600, Last dose on [facility] 03/20/21 at 1600, Administer over 60 Minutes, 100 mL
Is the patient mechanical ly ventilated ? NO
I s the patient requiring supplement al oxygen? YES benzonatate 2021-0 Yes 100mg 100 mg, Un adali (TESSALON 03-17 Oral, Q6H, ity of PERLES) 17:00: First dose [place] capsule 100 00 (after Medica l mg last Branch modificati on) on [facility] 03/17/21 at 1200, Until Discontinu ed, Routine benzonatate 2021-0 Yes 100mg 100 mg, Un adali (TESSALON 03-17 Oral, Q6H, ity of PERLES) 17:00: First dose [place] capsule 100 00 (after Medica l mg last Branch modificati on) on [facility] 03/17/21 at 1200, Until Discontinu ed, Routine omeprazole 2021-0 Yes 40mg 40 mg, Unive rs (PRILOSEC) 03-17 Oral, ity of capsule 40 14:00: DAILY, [place] mg 00 First dose Medical on [facility] 03/17/21 at 0900, Until Discontinu ed, Routine amLODIPine 2021-0 Yes 5mg 5 mg, Univer s (NORVASC) 03-17 Oral, ity of tablet 5 mg 14:00: DAILY, [place] 00 First dose Medical on [facility] 03/17/21 at 0900, Until Discontinu ed, Routine omeprazole 2021-0 Yes 40mg 40 mg, Unive rs (PRILOSEC) 03-17 Oral, ity of capsule 40 14:00: DAILY, [place] mg 00 First dose Medical on [facility] 03/17/21 at 0900, Until Discontinu ed, Routine amLODIPine 2021-0 Yes 5mg 5 mg, Univer s (NORVASC) 03-17 Oral, ity of tablet 5 mg 14:00: DAILY, [place] 00 First dose Medical on [facility] 03/17/21 at 0900, Until Discontinu ed, Routine Sliding 2021-0 Yes Subcutaneo Univ ers Scale 03-17 us, TID ity of Insulin - 02:00: MEALS+HS, [place] Lispro 00 First dose Medical (HumaLOG) + on Sun [place] [facility] 03/16/21 at Testing 2100, Until Discontinu ed, Routine gabapentin Yes 300mg 300 mg, Uni vers (NEURONTIN) 03-17 Oral, QHS, it y of capsule 300 02:00: First dose [place] mg 00 on Sun [facility] 03/16/21 at Branch 2100, Until Discontinu ed, Routine atorvastati Yes 40mg 40 mg, Univ ers n (LIPITOR) 03-17 Oral, QHS, it y of tablet 40 02:00: First dose [place] mg 00 on Sun03/16/21 at Branch 2100, Until Discontinu ed, Routine Sliding Yes [facility] ers Scale 03-17 , TID ity of Insulin - 02:00: MEALS+HS, [place] Lispro 00 First dose Medical (HumaLOG) + on Sun [place] [facility] 03/16/21 at Testing 2100, Until Discontinu ed, Routine gabapentin Yes 300mg 300 mg, Uni vers (NEURONTIN) 03-17 Oral, QHS, it y of capsule 300 02:00: First dose [place] mg 00 on Sun [facility] 03/16/21 at Branch 2100, Until Discontinu ed, Routine atorvastati Yes 40mg 40 mg, Univ ers n (LIPITOR) 03-17 Oral, QHS, it y of tablet 40 02:00: First dose [place] mg 00 on Sun [facility] 03/16/21 at Branch 2100, Until Discontinu ed, Routine insulin 2020- No .25U/kg 24 Units Un adali glargine 03-17 /d (0.25 ity of (LANTUS 02:00: 07:06 Units/kg/d [place] U-100) 00 :55 ay ?96 Medical injection kg)[facility] 24 Units [facility] us, QHS, First dose on Sun03/16/21 at 2100, Until Discontinu ed, Routine insulin 2020- No .25U/kg 24 Units Un adali glargine 03-17d (0.25 ity of (LANTUS 02:00: 07:06 Units/kg/d [place] U-100) 00 :55 ay ?96 Medical injection kg), [place] [facility] [address] [facility], First dose on Sun03/16/21 at 2100, Until Discontinu ed, Routine apixaban 0 Yes 5mg 5 mg, Univers (ELIQUIS) 03-17 Oral, BID, ity of tablet 5 mg 01:00: First dose Sun03/16/21 at [place] 1999, Until Discontinu ed, Routine apixaban 0 Yes 5mg 5 mg, Univers (ELIQUIS) 03-17 Oral, BID, ity of tablet 5 mg 01:00: First dose Sun03/16/21 at [place] 1999, Until Discontinu ed, Routine furosemide 0 Yes 40mg 40 mg, Unive rs (LASIX) 03-17 Oral, ity of tablet 40 00:00: DAILY, [place] mg 00 First dose Medical (after Branch last modificati on) on Sun03/16/21 at 1900, Until Discontinu ed, Routine carvediloL Yes 25mg 25 mg, Unive rs (COREG) 03-17 Oral, BID ity of tablet 25 00:00: MEALS, [place] mg 00 First dose Medical (after Branch last modificati on) on Sun03/16/21 at 1900, Until Discontinu ed, Routine furosemide 0 Yes 40mg 40 mg, Unive rs (LASIX) [...] at 1900, Until Discontinu ed, Routine benzonatate 0 2020- No [id number] 100mg Take 1 [facility] 100 mg 03-17 10-10 capsule by ity of capsule 00:00: 04:59 mouth [place] 00 :00 every 6 Medical (six) Branch hours for 30 days. benzonatate 0 202- No [id number] 100mg Take 1 [facility] 100 mg 9-09 10-10 capsule by ity of capsule 00:00: 04:59 mouth [place] 00 :00 every 6 Medical (six) Branch hours for 30 days. benzonatate 2021- No [id number] 100mg Take 1 [facility] 100 mg 9-09 10-10 capsule by ity of capsule 00:00: 04:59 mouth [place] 00 :00 every 6 Medical (six) Branch hours for 30 days. benzonatate 2021- No [id number] 100mg Take 1 [facility] 100 mg 9-09 10-10 capsule by ity of capsule 00:00: 04:59 mouth [place] 00 :00 every 6 Medical (six) Branch hours for 30 days. benzonatate 2021- No [id number] 100mg Take 1 [facility] 100 mg 9-09 10-10 capsule by ity of capsule 00:00: 04:59 mouth [place] 00 :00 every 6 Medical (six) Branch hours for 30 days. benzonatate 2021- No [id number] 100mg Take 1 [facility] 100 mg 9-09 10-10 capsule by ity of capsule 00:00: 04:59 mouth [place] 00 :00 every 6 Medical (six) Branch hours for 30 days. benzonatate 1- No [id number] 100mg Take 1 [facility] 100 mg 9-09 10-10 capsule by ity of capsule 00:00: 04:59 mouth [place] 00 :00 every 6 Medical (six) Branch hours for 30 days. benzonatate 1- No [id number] 100mg Take 1 [facility] 100 mg 9-09 10-10 capsule by ity of capsule 00:00: 04:59 mouth [place] 00 :00 every 6 Medical (six) Branch hours for 30 days. benzonatate 0 2021- No [id number] 100mg Take 1 [facility] 100 mg 9-09 [...] Medica l 25 mL Sun03/16/21 Branch at 185, Until Discontinu ed, SELINA, Blood Glucose < or = 70 mg/dL and patient is unable to swallow or has mental status changes. ipratropium Yes 2{puff} 2 Puff, Univers (ATROVENT 03-16 Inhalation ity of HFA) 23:15: , Q6H, [place] inhaler 2 00 First dose Medi micky [...] Inhalation ity of HFA) 23:15: , Q6H, [place] inhaler 2 00 First dose Medi micky Puff on Sun Branch 03/16/21 at 1815, Until Discontinu ed, Routine
Is this order for a patient with suspected or confirmed COVID-19 infection? Yes albuterol 2020-0 Yes 2{puff} 2 Puff, Un adali (VENTOLIN) 03-16 Inhalation ity of inhaler 2 23:15: , Q6H, [place] Puff 00 First dose Medical on Sun Branch 03/16/21 at 1815, Until Discontinu ed, Routine benzonatate 2020-2020- No 100mg 100 mg, U nivers (TESSALON 03-16 Oral, ity of PERLES) 23:13: 16:35 Q6RN, [place] capsule 100 02 :04 Starting Medi micky mg Sun03/16/21 Branch at 1813, Until [place] 03/17/21 at 1135, Routine, Cough benzonatate 2020-2020- No 100mg 100 mg, U nivers (TESSALON 03-16 Oral, ity of PERLES) 23:13: 16:35 Q6HPRN, [place] capsule 100 02 :04 Starting Medi micky mg Sun03/16/21 Branch at 1813, Until [place] 03/17/21 at 1135, Routine, Cough acetaminoph 2020-0 Yes 650mg 650 mg, Un adali en 03-16 Oral, ity of (TYLENOL) 23:08: Q6HPRN, [place] tablet 650 16 Starting Medic al mg Sun03/16/21 Branch at 1808, Until Discontinu ed, Routine, Pain (scale 1-3) acetaminoph 2020-0 Yes 650mg 650 mg, Un adali en 03-16 Oral, ity of (TYLENOL) 23:08: Q6HPRN, [place] tablet 650 16 Starting Medic al mg Sun03/16/21 Branch at 1808, Until Discontinu ed, Routine, Pain (scale 1-3) dexamethaso 2020-0 202- No 10mg 10 mg, IV Univers ne 03-16 Push, ity of (DECADRON 16:15: 15:53 ONCE, 1 [place] PHOSPHATE) 00 :00 dose, Sun Medi micky injection 03/16/21 at Branc h 10 mg 1115, STAT dexamethaso 2020-0 2020- No 10mg 10 mg, IV Univers ne 03-16 09 Push, ity of (DECADRON 16:15: 15:53 ONCE, [...] U-100) 100 Branch unit/mL (3 mL) In insulin 2018-07 Yes 16U inject 16 Unive [...] Units ity of (TRESIBA 20:23: [facility] skin. Medical U-100) 100 [...] U-100) 100 Branch unit/mL (3 mL) In insulin 2018-07 Yes 16U inject 16 Unive [...] mg Branch tablet traMADol 50 2018-07 Yes [id number] 50mg Take 1 Univers mg tablet 2-23 tablet by ity o f 00:00: mouth [place] 00 every 6 Medical (six) Branch hours as needed for Pain (scale 4-6) or Pain (scale 7-10). traMADol 50 2018-07 Yes [id number] 50mg Take 1 Univers mg tablet 2-23 tablet by ity o f 00:00: mouth [place] 00 every 6 Medical (six) Branch hours as needed for Pain (scale 4-6) or Pain (scale 7-10). triamcinolo 2018-07 Yes [id number] Apply to Univers ne 2-23 area(s) 2 ity of acetonide 00:00: (two) [place] 0.1 % cream 00 times Medical daily. Branch traMADol 50 2018-07 Yes [id number] 50mg Take 1 Univers mg tablet 2-23 tablet by ity o f 00:00: mouth [place] 00 every 6 Medical (six) Branch hours as needed for Pain (scale 4-6) or Pain (scale 7-10). traMADol 50 2018-07 Yes [id number] 50mg Take 1 Univers mg tablet 2-23 tablet by ity o f 00:00: mouth [place] 00 every 6 Medical (six) Branch hours as needed for Pain (scale 4-6) or Pain (scale 7-10). traMADol 50 2018-07 Yes [id number] 50mg Take 1 Univers mg tablet 2-23 tablet by ity o f 00:00: mouth [place] 00 every 6 Medical (six) Branch hours as needed for Pain (scale 4-6) or Pain (scale 7-10). triamcinolo 2018-07 Yes [id number] Apply to Univers ne 2-23 area(s) 2 ity of acetonide 00:00: (two) [place] 0.1 % cream 00 times Medical daily. Branch traMADol 50 2018-07 Yes [id number] 50mg Take 1 Univers mg tablet 2-23 tablet by ity o f 00:00: mouth [place] 00 every 6 Medical (six) Branch hours as needed for Pain (scale 4-6) or Pain (scale 7-10). traMADol 50 2018-07 Yes [id number] 50mg Take 1 Univers mg tablet 2-23 tablet by ity o f 00:00: mouth [place] 00 every 6 Medical (six) Branch hours as needed for Pain (scale 4-6) or Pain (scale 7-10). triamcinolo 2018- Yes [id number] Apply to Univers ne 2-23 area(s) 2 ity of acetonide 00:00: (two) [place] 0.1 % cream 00 times Medical daily. Branch triamcinolo 2018-07 Yes [id number] Apply to Univers ne 2-23 area(s) 2 ity of acetonide 00:00: (two) [place] 0.1 % cream 00 times Medical daily. Branch traMADol 50 2018-07 Yes [id number] 50mg Take 1 Univers mg tablet 2-23 tablet by ity o f 00:00: mouth [place] 00 every 6 Medical (six) Branch hours as needed for Pain (scale 4-6) or Pain (scale 7-10). triamcinolo 2018-07 Yes [id number] Apply to Univers ne 2-23 area(s) 2 ity of acetonide 00:00: (two) [place] 0.1 % cream 00 times Medical daily. Branch traMADol 50 2018-07 Yes [id number] 50mg Take 1 Univers mg tablet 2-23 tablet by ity o f 00:00: mouth [place] 00 every 6 Medical (six) Branch hours as needed for Pain (scale 4-6) or Pain (scale 7-10). triamcinolo 2018-07 Yes [id number] Apply to Univers ne 2-23 area(s) 2 ity of acetonide 00:00: (two) [place] 0.1 % cream 00 times Medical daily. Branch traMADol 50 2018-07 Yes [id number] 50mg Take 1 [facility] mg tablet 2-23 tablet by ity o f 00:00: mouth [place] 00 every 6 Medical (six) Branch hours as needed for Pain (scale 4-6) or Pain (scale 7-10). triamcinolo 2018-07 Yes [id number] Apply to Univers ne 2-23 area(s) 2 ity of acetonide 00:00: (two) [place] 0.1 % cream 00 times Medical daily. Branch traMADol 50 2018-07 Yes [id number] 50mg Take 1 [facility] mg tablet 2-23 tablet by ity o f 00:00: mouth [place] 00 every 6 Medical (six) Branch hours as needed for Pain (scale 4-6) or Pain (scale 7-10). triamcinolo 2018-07 Yes [id number] Apply to Univers ne 2-23 area(s) 2 ity of acetonide 00:00: (two) [place] 0.1 % cream 00 times Medical daily. Branch traMADol 50 2018-07 Yes [id number] 50mg Take 1 [facility] mg tablet 2-23 tablet by ity o f 00:00: mouth [place] 00 every 6 Medical (six) Branch hours as needed for Pain (scale 4-6) or Pain (scale 7-10). triamcinolo 2018-07 Yes [id number] Apply to Univers ne 2-23 area(s) 2 ity of acetonide 00:00: (two) [place] 0.1 % cream 00 times Medical daily. Branch traMADol 50 2018-07 Yes [id number] 50mg Take 1 [facility] mg tablet 2-23 tablet by ity o f 00:00: mouth [place] 00 every 6 Medical (six) Branch hours as needed for Pain (scale 4-6) or Pain (scale 7-10). joselitoamcinnikhil 2018-07 Yes [id number] Apply to [facility] ne 2-23 area(s) 2 ity of acetonide 00:00: (two) [place] 0.1 % cream 00 times Medical daily. Branch traMADol 50 2018-07 Yes [id number] 50mg Take 1 [facility] mg tablet 2-23 tablet by ity o f 00:00: mouth [place] 00 every 6 Medical (six) Branch hours as needed for Pain (scale 4-6) or Pain (scale 7-10). joselitoamcinnikhil 2018-07 Yes [id number] Apply to [facility] 2-23 area(s) 2 ity of acetonide 00:00: (two) [place] 0.1 % cream 00 times Medical daily. Branch traMADol 50 2018-07 Yes [id number] 50mg Take 1 [facility] mg tablet 2-23 tablet by ity o f 00:00: mouth [place] 00 every 6 Medical (six) Branch hours as needed for Pain (scale 4-6) or Pain (scale 7-10). joselitoamcinnikhil 2018-07 Yes [id number] Apply to [facility] ne 2-23 area(s) 2 ity of acetonide 00:00: (two) [place] 0.1 % cream 00 times Medical daily. Branch traMADol 50 2018-07 Yes [id number] 50mg Take 1 [facility] mg tablet 2-23 tablet by ity o f 00:00: mouth [place] 00 every 6 Medical (six) Branch hours as needed for Pain (scale 4-6) or Pain (scale 7-10). triamcinolo 2018-07 Yes [id number] Apply to [facility] ne 2-23 area(s) 2 ity of acetonide 00:00: (two) [place] 0.1 % cream 00 times Medical daily. Branch traMADol 50 2018-07 Yes [id number] 50mg Take 1 [facility] mg tablet 2-23 tablet by ity o f 00:00: mouth [place] 00 every 6 Medical (six) Branch hours as needed for Pain (scale 4-6) or Pain (scale 7-10). traMADol 50 2018-07 Yes [id number] 50mg Take 1 [facility] mg tablet 2-23 tablet by ity o f 00:00: mouth [place] 00 every 6 Medical (six) Branch hours as needed for Pain (scale 4-6) or Pain (scale 7-10). triamcinolo 2018-07 Yes [id number] Apply to [facility] 2-23 area(s) 2 ity of acetonide 00:00: (two) [place] 0.1 % cream 00 times Medical daily. Branch triamcinolo 2018-07 Yes [id number] Apply to [facility] ne 2-23 area(s) 2 ity of acetonide 00:00: (two) [place] 0.1 % cream 00 times Medical daily. Branch traMADol 50 2018-07 Yes [id number] 50mg Take 1 [facility] mg tablet 2-23 tablet by ity o f 00:00: mouth [place] 00 every 6 Medical (six) Branch hours as needed for Pain (scale 4-6) or Pain (scale 7-10). joselitokindred healthcarenikhil 2018-07 Yes [id number] Apply to [facility] 2-23 area(s) 2 ity of acetonide 00:00: (two) [place] 0.1 % cream 00 times Medical daily. Branch traMADol 50 2018-07 Yes [id number] 50mg Take 1 [facility] mg tablet 2-23 tablet by ity o f 00:00: mouth [place] 00 every 6 Medical (six) Branch hours as needed for Pain (scale 4-6) or Pain (scale 7-10). joselitoamunc health appalachiannikhil 2018-07 Yes [id number] Apply to [facility] 2-23 area(s) 2 ity of acetonide 00:00: (two) [place] 0.1 % cream 00 times Medical daily. Branch traMADol 50 2018-07 Yes [id number] 50mg Take 1 [facility] mg tablet 2-23 tablet by ity o f 00:00: mouth [place] 00 every 6 Medical (six) Branch hours as needed for Pain (scale 4-6) or Pain (scale 7-10). traMADol 50 2018-07- No [id number] 50mg Take 1 [facility] mg tablet 2-23 09-15 tablet by ity of 00:00: 00:00 mouth [place] 00 :00 every 6 Medical (six) Branch hours as needed for Pain (scale 4-6) or Pain (scale 7-10). traMADol 50 2018-07- No [id number] 50mg Take 1 [facility] mg tablet 08-31 tablet by ity of 00:00: 00:00 mouth [place] 00 :00 every 6 Medical (six) Branch hours as needed for Pain (scale 4-6) or Pain (scale 7-10). triamcinolo 2018-07- No [id number] Apply to [facility] 08-31 area(s) 2 ity of acetonide 00:00: 00:00 (two) [place] 0.1 % cream 00 :00 times Medical daily. Branch triamcinolo 2018-07- No [id number] Apply to [facility] 08-31 area(s) 2 ity of acetonide 00:00: 00:00 (two) [place] 0.1 % cream 00 :00 times Medical daily. Branch CALCIUM Yes 1{tbl} Take 1 [facility] CARBONATE/V 9-10 tablet by ity of ITAMIN D3 22:55: mouth. [place] (CALCIUM 56 Medical 600 + D,3, Branch ORAL) ascorbic Yes 500mg Take 500 Univ ers acid, 9-10 mg by ity of vitamin C, 22:55: mouth [place] (VITAMIN C) 56 daily. Medica l 500 mg Branch tablet CALCIUM Yes 1{tbl} Take 1 [facility] CARBONATE/V 9-10 tablet by ity of ITAMIN D3 22:55: mouth. [place] (CALCIUM 56 Medical 600 + D,3, Branch [...] 2019- No 1{puff} Inhale 1 [facility] Propionate 03-1810 Puff as ity o f 100 18:46: 00:00 needed for [place] mcg/actuati 42 :00 Other Medical on (Seasonal Branch inhalation Allergies) disk . nepafenac 2019- No 1[drp] Place 1 Un adali (ILEVRO) - 09-10 Drop in ity of 0.3 % DrpS 18:46: 00:00 each eye [place] 42 :00 daily. Medical Branch apixaban 2019-0 Yes [id number] 5mg Take 1 [facility] (ELIQUIS) 5 9-10 9103 tablet by ity of mg tablet 00:00: mouth 2 [place] 00 (two) Medical times Branch daily. atorvastati 2019-0 Yes [id number] 40mg Take 1 [facility] n (LIPITOR) 9-10 9103 tablet by ity of 40 mg 00:00: mouth at [place] tablet 00 bedtime. Medical Branch apixaban 2018- Yes [id number] 5mg Take 1 [facility] (ELIQUIS) 5 9-10 9103 tablet by ity of mg tablet 00:00: mouth 2 00 (two) Medical times Branch daily. atorvastati 2018- Yes [id number] 40mg Take 1 [facility] n (LIPITOR) 9-10 9103 tablet by ity of 40 mg 00:00: mouth at [place] tablet 00 bedtime. Medical Branch gabapentin 2018- Yes [id number] 300mg Take 1 [facility] 300 mg 9-10 9100 capsule by ity of capsule 00:00: mouth 2 00 (two) Medical times Branch daily. omeprazole 2019-0 Yes [id number] 40mg Take 1 [facility] 40 mg 9-10 9100 capsule by ity of capsule 00:00: mouth [place] 00 daily. Medical Branch carvedilol 2018-0 Yes [id number] 25mg Take 1 [facility] 25 mg 9-10 9103 tablet by ity of tablet 00:00: mouth 2 00 (two) Medical times Branch daily with meals. gabapentin 2019-0 Yes [id number] 300mg Take 1 [facility] 300 mg 9-10 9100 capsule by ity of capsule 00:00: mouth 2 00 (two) Medical times Branch daily. digoxin 125 2019-0 Yes [id number] 125ug Take 1 [facility] mcg tablet 9-10 9103 tablet by ity of 00:00: mouth [place] 00 daily. Medical Branch rOPINIRole 2019-0 Yes [id number] 2mg Take 1 [facility] 2 mg tablet 9-10 9103 tablet by ity of 00:00: mouth 2 [place] 00 (two) Medical times Branch daily. omeprazole 2019-0 Yes [id number] 40mg Take 1 [facility] 40 mg 9-10 9100 capsule by ity of capsule 00:00: mouth [place] 00 daily. Medical Branch apixaban 2019-0 Yes [id number] 5mg Take 1 [facility] (ELIQUIS) 5 9-10 9103 tablet by ity of mg tablet 00:00: mouth 2 [place] 00 (two) Medical times Branch daily. atorvastati 2019-0 Yes [id number] 40mg Take 1 [facility] n (LIPITOR) 9-10 9103 tablet by ity of 40 mg 00:00: mouth at [place] tablet 00 bedtime. Medical Branch gabapentin 2019-0 Yes [id number] 300mg Take 1 [facility] 300 mg 9-10 9100 capsule by ity of capsule 00:00: mouth 2 (two) Medical times Branch daily. omeprazole 2018-0 Yes [id number] 40mg Take 1 [facility] 40 mg 9-10 9100 capsule by ity of capsule 00:00: mouth [place] 00 daily. Medical Branch carvedilol 2018-0 Yes [id number] 25mg Take 1 [facility] 25 mg 9-10 9103 tablet by ity of tablet 00:00: mouth 2 (two) Medical times Branch daily with meals. digoxin 125 2018-0 Yes [id number] 125ug Take 1 [facility] mcg tablet 9-10 9103 tablet by ity of 00:00: mouth [place] 00 daily. Medical Branch carvedilol 2018-0 Yes [id number] 25mg Take 1 [facility] 25 mg 9-10 9103 tablet by ity of tablet 00:00: mouth 2 [place] 00 (two) Medical times Branch daily with meals. rOPINIRole 2019-0 Yes [id number] 2mg Take 1 [facility] 2 mg tablet 9-10 9103 tablet by ity of 00:00: mouth 2 00 (two) Medical times Branch daily. digoxin 125 2019-0 Yes [id number] 125ug Take 1 [facility] mcg tablet 9-10 9103 tablet by ity of 00:00: mouth [place] 00 daily. Medical Branch rOPINIRole 2019-0 Yes [id number] 2mg Take 1 [facility] 2 mg tablet 9-10 9103 tablet by ity of 00:00: mouth 2 [place] 00 (two) Medical times Branch daily. apixaban 2019-0 Yes [id number] 5mg Take 1 [facility] (ELIQUIS) 5 9-10 9103 tablet by ity of mg tablet 00:00: mouth 2 [place] 00 (two) Medical times Branch daily. atorvastati 2019-0 Yes [id number] 40mg Take 1 [facility] n (LIPITOR) 9-10 9103 tablet by ity of 40 mg 00:00: mouth at [place] tablet 00 bedtime. Medical Branch gabapentin 2019-0 Yes [id number] 300mg Take 1 [facility] 300 mg 9-10 9100 capsule by ity of capsule 00:00: mouth 2 (two) Medical times Branch daily. omeprazole 2019-0 Yes [id number] 40mg Take 1 [facility] 40 mg 9-10 9100 capsule by ity of capsule 00:00: mouth [place] 00 daily. Medical Branch carvedilol 2019-0 Yes [id number] 25mg Take 1 [facility] 25 mg 9-10 9103 tablet by ity of tablet 00:00: mouth 2 (two) Medical times Branch daily with meals. digoxin 125 2019-0 Yes [id number] 125ug Take 1 [facility] mcg tablet 9-10 9103 tablet by ity of 00:00: mouth [place] 00 daily. Medical Branch rOPINIRole 2018-0 Yes [id number] 2mg Take 1 [facility] 2 mg tablet 9-10 9103 tablet by ity of 00:00: mouth 2 (two) Medical times Branch daily. apixaban 2018-0 Yes [id number] 5mg Take 1 [facility] (ELIQUIS) 5 9-10 9103 tablet by ity of mg tablet 00:00: mouth 2 (two) Medical times Branch daily. atorvastati 2019-0 Yes [id number] 40mg Take 1 [facility] n (LIPITOR) 9-10 9103 tablet by ity of 40 mg 00:00: mouth at [place] tablet 00 bedtime. Medical Branch gabapentin 2019-0 Yes [id number] 300mg Take 1 [facility] 300 mg 9-10 9100 capsule by ity of capsule 00:00: mouth 2 00 (two) Medical times Branch daily. omeprazole 2019-0 Yes [id number] 40mg Take 1 [facility] 40 mg 9-10 9100 capsule by ity of capsule 00:00: mouth [place] 00 daily. Medical Branch carvedilol 2019-0 Yes [id number] 25mg Take 1 [facility] 25 mg 9-10 9103 tablet by ity of tablet 00:00: mouth 2 (two) Medical times Branch daily with meals. digoxin 125 2019- Yes [id number] 125ug Take 1 [facility] mcg tablet 9-10 9103 tablet by ity of 00:00: mouth [place] 00 daily. Medical Branch rOPINIRole 2019-0 Yes [id number] 2mg Take 1 [facility] 2 mg tablet 9-10 9103 tablet by ity of 00:00: mouth 2 (two) Medical times Branch daily. apixaban 2019- Yes [id number] 5mg Take 1 [facility] (ELIQUIS) 5 9-10 9103 tablet by ity of mg tablet 00:00: mouth 2 (two) Medical times Branch daily. atorvastati 2019- Yes [id number] 40mg Take 1 [facility] n (LIPITOR) 9-10 9103 tablet by ity of 40 mg 00:00: mouth at [place] tablet 00 bedtime. Medical Branch gabapentin 2019- Yes [id number] 300mg Take 1 [facility] 300 mg 9-10 9100 capsule by ity of capsule 00:00: mouth 2 (two) Medical times Branch daily. omeprazole 2019- Yes [id number] 40mg Take 1 [facility] 40 mg 9-10 9100 capsule by ity of capsule 00:00: mouth [place] 00 daily. Medical Branch carvedilol 2018- Yes [id number] 25mg Take 1 [facility] 25 mg 9-10 9103 tablet by ity of tablet 00:00: mouth 2 (two) Medical times Branch daily with meals. digoxin 125 2018-0 Yes [id number] 125ug Take 1 [facility] mcg tablet 9-10 9103 tablet by ity of 00:00: mouth [place] 00 daily. Medical Branch rOPINIRole 0 Yes [id number] 2mg Take 1 [facility] 2 mg tablet 9-10 9103 tablet by ity of 00:00: mouth 2 (two) Medical times Branch daily. apixaban 2019- Yes [id number] 5mg Take 1 [facility] (ELIQUIS) 5 9-10 9103 tablet by ity of mg tablet 00:00: mouth 2 00 (two) Medical times Branch daily. atorvastati 2018- Yes [id number] 40mg Take 1 [facility] n (LIPITOR) 9-10 9103 tablet by ity of 40 mg 00:00: mouth at [place] tablet 00 bedtime. Medical Branch gabapentin 2019-0 Yes [id number] 300mg Take 1 [facility] 300 mg 9-10 9100 capsule by ity of capsule 00:00: mouth 2 00 (two) Medical times Branch daily. omeprazole 2019-0 Yes [id number] 40mg Take 1 [facility] 40 mg 9-10 9100 capsule by ity of capsule 00:00: mouth [place] 00 daily. Medical Branch carvedilol 2019-0 Yes [id number] 25mg Take 1 [facility] 25 mg 9-10 9103 tablet by ity of tablet 00:00: mouth 2 (two) Medical times Branch daily with meals. digoxin 125 2019-0 Yes [id number] 125ug Take 1 [facility] mcg tablet 9-10 9103 tablet by ity of 00:00: mouth [place] 00 daily. Medical Branch rOPINIRole 2019-0 Yes [id number] 2mg Take 1 [facility] 2 mg tablet 9-10 9103 tablet by ity of 00:00: mouth 2 (two) Medical times Branch daily. apixaban 2019-0 Yes [id number] 5mg Take 1 [facility] (ELIQUIS) 5 9-10 9103 tablet by ity of mg tablet 00:00: mouth 2 (two) Medical times Branch daily. atorvastati 2019-0 Yes [id number] 40mg Take 1 [facility] n (LIPITOR) 9-10 9103 tablet by ity of 40 mg 00:00: mouth at [place] tablet 00 bedtime. Medical Branch gabapentin 2019-0 Yes [id number] 300mg Take 1 [facility] 300 mg 9-10 9100 capsule by ity of capsule 00:00: mouth 2 (two) Medical times Branch daily. omeprazole 2019-0 Yes [id number] 40mg Take 1 [facility] 40 mg 9-10 9100 capsule by ity of capsule 00:00: mouth [place] 00 daily. Medical Branch carvedilol 2019-0 Yes [id number] 25mg Take 1 [facility] 25 mg 9-10 9103 tablet by ity of tablet 00:00: mouth 2 (two) Medical times Branch daily with meals. digoxin 125 2019-0 Yes [id number] 125ug Take 1 [facility] mcg tablet 9-10 9103 tablet by ity of 00:00: mouth [place] 00 daily. Medical Branch rOPINIRole 2019-0 Yes [id number] 2mg Take 1 [facility] 2 mg tablet 9-10 9103 tablet by ity of 00:00: mouth 2 [place] 00 (two) Medical times Branch daily. atorvastati 2019-0 Yes [id number] 40mg Take 1 [facility] n (LIPITOR) 9-10 9103 tablet by ity of 40 mg 00:00: mouth at [place] tablet 00 bedtime. Medical Branch omeprazole 2019-0 Yes [id number] 40mg Take 1 [facility] 40 mg 9-10 9100 capsule by ity of capsule 00:00: mouth [place] 00 daily. Medical Branch apixaban 2019-0 Yes [id number] 5mg Take 1 [facility] (ELIQUIS) 5 9-10 9103 tablet by ity of mg tablet 00:00: mouth 2 [place] 00 (two) Medical times Branch daily. atorvastati 2019-0 Yes [id number] 40mg Take 1 [facility] n (LIPITOR) 9-10 9103 tablet by ity of 40 mg 00:00: mouth at [place] tablet 00 bedtime. Medical Branch gabapentin 2019-0 Yes [id number] 300mg Take 1 [facility] 300 mg 9-10 9100 capsule by ity of capsule 00:00: mouth 2 [place] 00 (two) Medical times Branch daily. omeprazole 2019-0 Yes [id number] 40mg Take 1 [facility] 40 mg 9-10 9100 capsule by ity of capsule 00:00: mouth [place] 00 daily. Medical Branch carvedilol 2018-0 Yes [id number] 25mg Take 1 [facility] 25 mg 9-10 9103 tablet by ity of tablet 00:00: mouth 2 [place] 00 (two) Medical times Branch daily with meals. digoxin 125 2019-0 Yes [id number] 125ug Take 1 [facility] mcg tablet 9-10 9103 tablet by ity of 00:00: mouth [place] 00 daily. Medical Branch rOPINIRole 2019-0 Yes [id number] 2mg Take 1 [facility] 2 mg tablet 9-10 9103 tablet by ity of 00:00: mouth 2 [place] 00 (two) Medical times Branch daily. atorvastati 2019-0 Yes [id number] 40mg Take 1 [facility] n (LIPITOR) 9-10 9103 tablet by ity of 40 mg 00:00: mouth at [place] tablet 00 bedtime. Medical Branch omeprazole 2019-0 Yes [id number] 40mg Take 1 [facility] 40 mg 9-10 9100 capsule by ity of capsule 00:00: mouth [place] 00 daily. Medical Branch atorvastati 2019-0 Yes [id number] 40mg Take 1 [facility] n (LIPITOR) 9-10 9103 tablet by ity of 40 mg 00:00: mouth at [place] tablet 00 bedtime. Medical Branch omeprazole 2019-0 Yes [id number] 40mg Take 1 [facility] 40 mg 9-10 9100 capsule by ity of capsule 00:00: mouth [place] 00 daily. Medical Branch apixaban 2019-0 Yes [id number] 5mg Take 1 [facility] (ELIQUIS) 5 9-10 9103 tablet by ity of mg tablet 00:00: mouth 2 [place] 00 (two) Medical times Branch daily. atorvastati 2019-0 Yes [id number] 40mg Take 1 [facility] n (LIPITOR) 9-10 9103 tablet by ity of 40 mg 00:00: mouth at [place] tablet 00 bedtime. Medical Branch gabapentin 2019-0 Yes [id number] 300mg Take 1 [facility] 300 mg 9-10 9100 capsule by ity of capsule 00:00: mouth 2 [place] 00 (two) Medical times Branch daily. omeprazole 2019-0 Yes [id number] 40mg Take 1 [facility] 40 mg 9-10 9100 capsule by ity of capsule 00:00: mouth [place] 00 daily. Medical Branch carvedilol 2019-0 Yes [id number] 25mg Take 1 [facility] 25 mg 9-10 9103 tablet by ity of tablet 00:00: mouth 2 [place] 00 (two) Medical times Branch daily with meals. digoxin 125 2019-0 Yes [id number] 125ug Take 1 [facility] mcg tablet 9-10 9103 tablet by ity of 00:00: mouth [place] 00 daily. Medical Branch rOPINIRole 2019-0 Yes [id number] 2mg Take 1 [facility] 2 mg tablet 9-10 9103 tablet by ity of 00:00: mouth 2 [place] 00 (two) Medical times Branch daily. apixaban 2019-0 Yes [id number] 5mg Take 1 [facility] (ELIQUIS) 5 9-10 9103 tablet by ity of mg tablet 00:00: mouth 2 [place] 00 (two) Medical times Branch daily. atorvastati 2019-0 Yes [id number] 40mg Take 1 [facility] n (LIPITOR) 9-10 9103 tablet by ity of 40 mg 00:00: mouth at [place] tablet 00 bedtime. Medical Branch gabapentin 2019-0 Yes [id number] 300mg Take 1 [facility] 300 mg 9-10 9100 capsule by ity of capsule 00:00: mouth 2 00 (two) Medical times Branch daily. omeprazole 2019-0 Yes [id number] 40mg Take 1 [facility] 40 mg 9-10 9100 capsule by ity of capsule 00:00: mouth [place] 00 daily. Medical Branch carvedilol 2019-0 Yes [id number] 25mg Take 1 [facility] 25 mg 9-10 9103 tablet by ity of tablet 00:00: mouth 2 00 (two) Medical times Branch daily with meals. digoxin 125 2019-0 Yes [id number] 125ug Take 1 [facility] mcg tablet 9-10 9103 tablet by ity of 00:00: mouth [place] 00 daily. Medical Branch rOPINIRole 2019-0 Yes [id number] 2mg Take 1 [facility] 2 mg tablet 9-10 9103 tablet by ity of 00:00: mouth 2 (two) Medical times Branch daily. apixaban 2019-0 Yes [id number] 5mg Take 1 [facility] (ELIQUIS) 5 9-10 9103 tablet by ity of mg tablet 00:00: mouth 2 (two) Medical times Branch daily. atorvastati 2019-0 Yes [id number] 40mg Take 1 [facility] n (LIPITOR) 9-10 9103 tablet by ity of 40 mg 00:00: mouth at [place] tablet 00 bedtime. Medical Branch gabapentin 2019-0 Yes [id number] 300mg Take 1 [facility] 300 mg 9-10 9100 capsule by ity of capsule 00:00: mouth 2 (two) Medical times Branch daily. omeprazole 2019-0 Yes [id number] 40mg Take 1 [facility] 40 mg 9-10 9100 capsule by ity of capsule 00:00: mouth [place] 00 daily. Medical Branch carvedilol 2019-0 Yes [id number] 25mg Take 1 [facility] 25 mg 9-10 9103 tablet by ity of tablet 00:00: mouth 2 (two) Medical times Branch daily with meals. digoxin 125 2019-0 Yes [id number] 125ug Take 1 [facility] mcg tablet 9-10 9103 tablet by ity of 00:00: mouth [place] 00 daily. Medical Branch rOPINIRole 2019-0 Yes [id number] 2mg Take 1 [facility] 2 mg tablet 9-10 9103 tablet by ity of 00:00: mouth 2 [place] 00 (two) Medical times Branch daily. apixaban 2019-0 Yes [id number] 5mg Take 1 [facility] (ELIQUIS) 5 9-10 9103 tablet by ity of mg tablet 00:00: mouth 2 [place] 00 (two) Medical times Branch daily. atorvastati 2019-0 Yes [id number] 40mg Take 1 [facility] n (LIPITOR) 9-10 9103 tablet by ity of 40 mg 00:00: mouth at [place] tablet 00 bedtime. Medical Branch gabapentin 2019- Yes [id number] 300mg Take 1 [facility] 300 mg 9-10 9100 capsule by ity of capsule 00:00: mouth 2 (two) Medical times Branch daily. omeprazole 2018-0 Yes [id number] 40mg Take 1 [facility] 40 mg 9-10 9100 capsule by ity of capsule 00:00: mouth [place] 00 daily. Medical Branch carvedilol 2018- Yes [id number] 25mg Take 1 [facility] 25 mg 9-10 9103 tablet by ity of tablet 00:00: mouth 2 00 (two) Medical times Branch daily with meals. digoxin 125 2018-0 Yes [id number] 125ug Take 1 [facility] mcg tablet 9-10 9103 tablet by ity of 00:00: mouth [place] 00 daily. Medical Branch furosemide 2018-0 Yes [id number] 40mg Take 1 [facility] 40 mg 9-10 9103 tablet by ity of tablet 00:00: mouth [place] 00 daily. Medical Branch insulin 2018-0 Yes [id number] 10U inject 10 [facility] glargine 9-10 9103 Units ity of 100 unit/mL 00:00: under the [place] injection 00 skin every [facility] 12 Branch (twelve) hours. rOPINIRole 2019-0 Yes [id number] 2mg Take 1 [facility] 2 mg tablet 9-10 9103 tablet by ity of 00:00: mouth 2 [place] 00 (two) Medical times Branch daily. apixaban 2019- Yes [id number] 5mg Take 1 [facility] (ELIQUIS) 5 9-10 9103 tablet by ity of mg tablet 00:00: mouth 2 [place] 00 (two) Medical times Branch daily. atorvastati 2018-0 Yes [id number] 40mg Take 1 [facility] n (LIPITOR) 9-10 9103 tablet by ity of 40 mg 00:00: mouth at [place] tablet 00 bedtime. Medical Branch gabapentin 2019-0 Yes [id number] 300mg Take 1 [facility] 300 mg 9-10 9100 capsule by ity of capsule 00:00: mouth 2 [place] 00 (two) Medical times Branch daily. omeprazole 2019-0 Yes [id number] 40mg Take 1 [facility] 40 mg 9-10 9100 capsule by ity of capsule 00:00: mouth [place] 00 daily. Medical Branch carvedilol 2019-0 Yes [id number] 25mg Take 1 [facility] 25 mg 9-10 9103 tablet by ity of tablet 00:00: mouth 2 00 (two) Medical times Branch daily with meals. apixaban 2019-0 Yes [id number] 5mg Take 1 [facility] (ELIQUIS) 5 9-10 9103 tablet by ity of mg tablet 00:00: mouth 2 (two) Medical times Branch daily. atorvastati 2018-0 Yes [id number] 40mg Take 1 [facility] n (LIPITOR) 9-10 9103 tablet by ity of 40 mg 00:00: mouth at [place] tablet 00 bedtime. Medical Branch digoxin 125 2019-0 Yes [id number] 125ug Take 1 [facility] mcg tablet 9-10 9103 tablet by ity of 00:00: mouth [place] 00 daily. Medical Branch gabapentin 2018-0 Yes [id number] 300mg Take 1 [facility] 300 mg 9-10 9100 capsule by ity of capsule 00:00: mouth 2 00 (two) Medical times Branch daily. omeprazole 2019-0 Yes [id number] 40mg Take 1 [facility] 40 mg 9-10 9100 capsule by ity of capsule 00:00: mouth [place] 00 daily. Medical Branch carvedilol 2019-0 Yes [id number] 25mg Take 1 [facility] 25 mg 9-10 9103 tablet by ity of tablet 00:00: mouth 2 00 (two) Medical times Branch daily with meals. digoxin 125 2019-0 Yes [id number] 125ug Take 1 [facility] mcg tablet 9-10 9103 tablet by ity of 00:00: mouth [place] 00 daily. Medical Branch furosemide 2019-0 Yes [id number] 40mg Take 1 [facility] 40 mg 9-10 9103 tablet by ity of tablet 00:00: mouth [place] 00 daily. Medical Branch insulin 2019-0 Yes [id number] 10U inject 10 [facility] glargine 9-10 9103 Units ity of 100 unit/mL 00:00: under the [place] injection 00 skin every Medi micky 12 Branch (twelve) hours. rOPINIRole 2019-0 Yes [id number] 2mg Take 1 [facility] 2 mg tablet 9-10 9103 tablet by ity of 00:00: mouth 2 00 (two) Medical times Branch daily. rOPINIRole 2019-0 Yes [id number] 2mg Take 1 [facility] 2 mg tablet 9-10 9103 tablet by ity of 00:00: mouth 2 (two) Medical times Branch daily. apixaban 2019-0 Yes [id number] 5mg Take 1 [facility] (ELIQUIS) 5 9-10 9103 tablet by ity of mg tablet 00:00: mouth 2 (two) Medical times Branch daily. atorvastati 2019-0 Yes [id number] 40mg Take 1 [facility] n (LIPITOR) 9-10 9103 tablet by ity of 40 mg 00:00: mouth at [place] tablet 00 bedtime. Medical Branch gabapentin 2019-0 Yes [id number] 300mg Take 1 [facility] 300 mg 9-10 9100 capsule by ity of capsule 00:00: mouth 2 (two) Medical times Branch daily. omeprazole 2019-0 Yes [id number] 40mg Take 1 [facility] 40 mg 9-10 9100 capsule by ity of capsule 00:00: mouth [place] 00 daily. Medical Branch carvedilol 2019-0 Yes [id number] 25mg Take 1 [facility] 25 mg 9-10 9103 tablet by ity of tablet 00:00: mouth 2 (two) Medical times Branch daily with meals. digoxin 125 2019-0 Yes [id number] 125ug Take 1 [facility] mcg tablet 9-10 9103 tablet by ity of 00:00: mouth [place] 00 daily. Medical Branch rOPINIRole 2019-0 Yes [id number] 2mg Take 1 [facility] 2 mg tablet 9-10 9103 tablet by ity of 00:00: mouth 2 [place] 00 (two) Medical times Branch daily. apixaban 2019-0 Yes [id number] 5mg Take 1 [facility] (ELIQUIS) 5 9-10 9103 tablet by ity of mg tablet 00:00: mouth 2 (two) Medical times Branch daily. atorvastati 2019-0 Yes [id number] 40mg Take 1 [facility] n (LIPITOR) 9-10 9103 tablet by ity of 40 mg 00:00: mouth at [place] tablet 00 bedtime. Medical Branch gabapentin 2019-0 Yes [id number] 300mg Take 1 [facility] 300 mg 9-10 9100 capsule by ity of capsule 00:00: mouth 2 (two) Medical times Branch daily. omeprazole 2019-0 Yes [id number] 40mg Take 1 [facility] 40 mg 9-10 9100 capsule by ity of capsule 00:00: mouth [place] 00 daily. Medical Branch carvedilol 2019-0 Yes [id number] 25mg Take 1 [facility] 25 mg 9-10 9103 tablet by ity of tablet 00:00: mouth 2 (two) Medical times Branch daily with meals. digoxin 125 2019-0 Yes [id number] 125ug Take 1 [facility] mcg tablet 9-10 9103 tablet by ity of 00:00: mouth 00 daily. Medical Branch rOPINIRole 2019-0 Yes [id number] 2mg Take 1 [facility] 2 mg tablet 9-10 9103 tablet by ity of 00:00: mouth (two) Medical times Branch daily. apixaban 2019-0 Yes [id number] 5mg Take 1 [facility] (ELIQUIS) 5 9-10 9103 tablet by ity of mg tablet 00:00: mouth 2 (two) Medical times Branch daily. atorvastati 2019-0 Yes [id number] 40mg Take 1 [facility] n (LIPITOR) 9-10 9103 tablet by ity of 40 mg 00:00: mouth at [place] tablet 00 bedtime. Medical Branch gabapentin 2019-0 Yes [id number] 300mg Take 1 [facility] 300 mg 9-10 9100 capsule by ity of capsule 00:00: mouth 2 (two) Medical times Branch daily. omeprazole 2019-0 Yes [id number] 40mg Take 1 [facility] 40 mg 9-10 9100 capsule by ity of capsule 00:00: mouth [place] 00 daily. Medical Branch carvedilol 2019-0 Yes [id number] 25mg Take 1 [facility] 25 mg 9-10 9103 tablet by ity of tablet 00:00: mouth 2 [place] 00 (two) Medical times Branch daily with meals. digoxin 125 2019-0 Yes [id number] 125ug Take 1 [facility] mcg tablet 9-10 9103 tablet by ity of 00:00: mouth [place] 00 daily. Medical Branch rOPINIRole 2018-0 Yes [id number] 2mg Take 1 [facility] 2 mg tablet 9-10 9103 tablet by ity of 00:00: mouth 2 (two) Medical times Branch daily. apixaban 2019- Yes [id number] 5mg Take 1 [facility] (ELIQUIS) 5 9-10 9103 tablet by ity of mg tablet 00:00: mouth 2 (two) Medical times Branch daily. atorvastati 2018- Yes [id number] 40mg Take 1 [facility] n (LIPITOR) 9-10 9103 tablet by ity of 40 mg 00:00: mouth at [place] tablet 00 bedtime. Medical Branch gabapentin 2018- Yes [id number] 300mg Take 1 [facility] 300 mg 9-10 9100 capsule by ity of capsule 00:00: mouth (two) Medical times Branch daily. omeprazole 2018-0 Yes [id number] 40mg Take 1 [facility] 40 mg 9-10 9100 capsule by ity of capsule 00:00: mouth [place] 00 daily. Medical Branch carvedilol 2018- Yes [id number] 25mg Take 1 [facility] 25 mg 9-10 9103 tablet by ity of tablet 00:00: mouth (two) Medical times Branch daily with meals. digoxin 125 2018-0 Yes [id number] 125ug Take 1 [facility] mcg tablet 9-10 9103 tablet by ity of 00:00: mouth [place] 00 daily. Medical Branch rOPINIRole 2018-0 Yes [id number] 2mg Take 1 [facility] 2 mg tablet 9-10 9103 tablet by ity of 00:00: mouth 2 (two) Medical times Branch daily. apixaban 2019-0 Yes [id number] 5mg Take 1 [facility] (ELIQUIS) 5 9-10 9103 tablet by ity of mg tablet 00:00: mouth 2 (two) Medical times Branch daily. atorvastati 2018-0 Yes [id number] 40mg Take 1 [facility] n (LIPITOR) 9-10 9103 tablet by ity of 40 mg 00:00: mouth at [place] tablet 00 bedtime. Medical Branch gabapentin 2019- Yes [id number] 300mg Take 1 [facility] 300 mg 9-10 9100 capsule by ity of capsule 00:00: mouth 2 [place] 00 (two) Medical times Branch daily. omeprazole 2019-0 Yes [id number] 40mg Take 1 [facility] 40 mg 9-10 9100 capsule by ity of capsule 00:00: mouth [place] 00 daily. Medical Branch carvedilol 2019-0 Yes [id number] 25mg Take 1 [facility] 25 mg 9-10 9103 tablet by ity of tablet 00:00: mouth 2 [place] 00 (two) Medical times Branch daily with meals. digoxin 125 2019-0 Yes [id number] 125ug Take 1 [facility] mcg tablet 9-10 9103 tablet by ity of 00:00: mouth [place] 00 daily. Medical Branch rOPINIRole 2018-0 Yes [id number] 2mg Take 1 [facility] 2 mg tablet 9-10 9103 tablet by ity of 00:00: mouth 2 (two) Medical times Branch daily. apixaban 2018-0 Yes [id number] 5mg Take 1 [facility] (ELIQUIS) 5 9-10 9103 tablet by ity of mg tablet 00:00: mouth 2 (two) Medical times Branch daily. atorvastati 2018-0 Yes [id number] 40mg Take 1 [facility] n (LIPITOR) 9-10 9103 tablet by ity of 40 mg 00:00: mouth at [place] tablet 00 bedtime. Medical Branch gabapentin 2018-0 Yes [id number] 300mg Take 1 [facility] 300 mg 9-10 9100 capsule by ity of capsule 00:00: mouth 2 (two) Medical times Branch daily. omeprazole 2019-0 Yes [id number] 40mg Take 1 [facility] 40 mg 9-10 9100 capsule by ity of capsule 00:00: mouth [place] 00 daily. Medical Branch carvedilol 2018-0 Yes [id number] 25mg Take 1 [facility] 25 mg 9-10 9103 tablet by ity of tablet 00:00: mouth 2 (two) Medical times Branch daily with meals. digoxin 125 2019-0 Yes [id number] 125ug Take 1 [facility] mcg tablet 9-10 9103 tablet by ity of 00:00: mouth [place] 00 daily. Medical Branch rOPINIRole 2018-0 Yes [id number] 2mg Take 1 [facility] 2 mg tablet 9-10 9103 tablet by ity of 00:00: mouth 2 (two) Medical times Branch daily. apixaban 2019-0 Yes [id number] 5mg Take 1 [facility] (ELIQUIS) 5 9-10 9103 tablet by ity of mg tablet 00:00: mouth 2 (two) Medical times Branch daily. atorvastati 2019-0 Yes [id number] 40mg Take 1 [facility] n (LIPITOR) 9-10 9103 tablet by ity of 40 mg 00:00: mouth at [place] tablet 00 bedtime. Medical Branch gabapentin 2019-0 Yes [id number] 300mg Take 1 [facility] 300 mg 9-10 9100 capsule by ity of capsule 00:00: mouth 2 (two) Medical times Branch daily. omeprazole 2019-0 Yes [id number] 40mg Take 1 [facility] 40 mg 9-10 9100 capsule by ity of capsule 00:00: mouth [place] 00 daily. Medical Branch carvedilol 2019-0 Yes [id number] 25mg Take 1 [facility] 25 mg 9-10 9103 tablet by ity of tablet 00:00: mouth 2 (two) Medical times Branch daily with meals. digoxin 125 2019-0 Yes [id number] 125ug Take 1 [facility] mcg tablet 9-10 9103 tablet by ity of 00:00: mouth [place] 00 daily. Medical Branch rOPINIRole 2019-0 Yes [id number] 2mg Take 1 [facility] 2 mg tablet 9-10 9103 tablet by ity of 00:00: mouth 2 (two) Medical times Branch daily. apixaban 2019-0 Yes [id number] 5mg Take 1 [facility] (ELIQUIS) 5 9-10 9103 tablet by ity of mg tablet 00:00: mouth 2 (two) Medical times Branch daily. apixaban 2019-0 Yes [id number] 5mg Take 1 [facility] (ELIQUIS) 5 9-10 9103 tablet by ity of mg tablet 00:00: mouth 2 00 (two) Medical times Branch daily. atorvastati 2019-0 Yes [id number] 40mg Take 1 [facility] n (LIPITOR) 9-10 9103 tablet by ity of 40 mg 00:00: mouth at [place] tablet 00 bedtime. Medical Branch gabapentin 2019-0 Yes [id number] 300mg Take 1 [facility] 300 mg 9-10 9100 capsule by ity of capsule 00:00: mouth 2 (two) Medical times Branch daily. omeprazole 2019-0 Yes [id number] 40mg Take 1 [facility] 40 mg 9-10 9100 capsule by ity of capsule 00:00: mouth [place] 00 daily. Medical Branch carvedilol 2019-0 Yes [id number] 25mg Take 1 [facility] 25 mg 9-10 9103 tablet by ity of tablet 00:00: mouth 2 (two) Medical times Branch daily with meals. digoxin 125 2019-0 Yes [id number] 125ug Take 1 [facility] mcg tablet 9-10 9103 tablet by ity of 00:00: mouth [place] 00 daily. Medical Branch rOPINIRole 2019-0 Yes [id number] 2mg Take 1 [facility] 2 mg tablet 9-10 9103 tablet by ity of 00:00: mouth 2 (two) Medical times Branch daily. atorvastati 2019-0 Yes [id number] 40mg Take 1 [facility] n (LIPITOR) 9-10 9103 tablet by ity of 40 mg 00:00: mouth at [place] tablet 00 bedtime. Medical Branch apixaban 2019-0 Yes [id number] 5mg Take 1 [facility] (ELIQUIS) 5 9-10 9103 tablet by ity of mg tablet 00:00: mouth (two) Medical times Branch daily. atorvastati 2019-0 Yes [id number] 40mg Take 1 [facility] n (LIPITOR) 9-10 9103 tablet by ity of 40 mg 00:00: mouth at [place] tablet 00 bedtime. Medical Branch gabapentin 2019-0 Yes [id number] 300mg Take 1 [facility] 300 mg 9-10 9100 capsule by ity of capsule 00:00: mouth 2 (two) Medical times Branch daily. gabapentin 2019-0 Yes [id number] 300mg Take 1 [facility] 300 mg 9-10 9100 capsule by ity of capsule 00:00: mouth 2 (two) Medical times Branch daily. omeprazole 2019-0 Yes [id number] 40mg Take 1 [facility] 40 mg 9-10 9100 capsule by ity of capsule 00:00: mouth [place] 00 daily. Medical Branch carvedilol 2019-0 Yes [id number] 25mg Take 1 [facility] 25 mg 9-10 9103 tablet by ity of tablet 00:00: mouth 2 (two) Medical times Branch daily with meals. digoxin 125 2018- Yes [id number] 125ug Take 1 [facility] mcg tablet 9-10 9103 tablet by ity of 00:00: mouth [place] 00 daily. Medical Branch rOPINIRole 2019-0 Yes [id number] 2mg Take 1 [facility] 2 mg tablet 9-10 9103 tablet by ity of 00:00: mouth 2 (two) Medical times Branch daily. omeprazole 2018-0 Yes [id number] 40mg Take 1 [facility] 40 mg 9-10 9100 capsule by ity of capsule 00:00: mouth [place] 00 daily. Medical Branch apixaban 2018- Yes [id number] 5mg Take 1 [facility] (ELIQUIS) 5 9-10 9103 tablet by ity of mg tablet 00:00: mouth (two) Medical times Branch daily. atorvastati 2018- Yes [id number] 40mg Take 1 [facility] n (LIPITOR) 9-10 9103 tablet by ity of 40 mg 00:00: mouth at [place] tablet 00 bedtime. Medical Branch gabapentin 2018-0 Yes [id number] 300mg Take 1 [facility] 300 mg 9-10 9100 capsule by ity of capsule 00:00: mouth (two) Medical times Branch daily. omeprazole 2018-0 Yes [id number] 40mg Take 1 [facility] 40 mg 9-10 9100 capsule by ity of capsule 00:00: mouth [place] 00 daily. Medical Branch carvedilol 2018-0 Yes [id number] 25mg Take 1 [facility] 25 mg 9-10 9103 tablet by ity of tablet 00:00: mouth (two) Medical times Branch daily with meals. carvedilol 2018-0 Yes [id number] 25mg Take 1 [facility] 25 mg 9-10 9103 tablet by ity of tablet 00:00: mouth 2 (two) Medical times Branch daily with meals. digoxin 125 2018-0 Yes [id number] 125ug Take 1 [facility] mcg tablet 9-10 9103 tablet by ity of 00:00: mouth [place] 00 daily. Medical Branch rOPINIRole 2018-0 Yes [id number] 2mg Take 1 [facility] 2 mg tablet 9-10 9103 tablet by ity of 00:00: mouth 2 (two) Medical times Branch daily. digoxin 125 2018-0 Yes [id number] 125ug Take 1 [facility] mcg tablet 9-10 9103 tablet by ity of 00:00: mouth [place] 00 daily. Medical Branch apixaban 2019-0 Yes [id number] 5mg Take 1 [facility] (ELIQUIS) 5 9-10 9103 tablet by ity of mg tablet 00:00: mouth 2 (two) Medical times Branch daily. atorvastati 2018-0 Yes [id number] 40mg Take 1 [facility] n (LIPITOR) 9-10 9103 tablet by ity of 40 mg 00:00: mouth at [place] tablet 00 bedtime. Medical Branch gabapentin 2018-0 Yes [id number] 300mg Take 1 [facility] 300 mg 9-10 9100 capsule by ity of capsule 00:00: mouth 2 (two) Medical times Branch daily. omeprazole 2018-0 Yes [id number] 40mg Take 1 [facility] 40 mg 9-10 9100 capsule by ity of capsule 00:00: mouth [place] 00 daily. Medical Branch carvedilol 2018-0 Yes [id number] 25mg Take 1 [facility] 25 mg 9-10 9103 tablet by ity of tablet 00:00: mouth 2 (two) Medical times Branch daily with meals. digoxin 125 2018-0 Yes [id number] 125ug Take 1 [facility] mcg tablet 9-10 9103 tablet by ity of 00:00: mouth 00 daily. Medical Branch rOPINIRole 2019-0 Yes [id number] 2mg Take 1 [facility] 2 mg tablet 9-10 9103 tablet by ity of 00:00: mouth 2 (two) Medical times Branch daily. rOPINIRole 2018-0 Yes [id number] 2mg Take 1 [facility] 2 mg tablet 9-10 9103 tablet by ity of 00:00: mouth 2 (two) Medical times Branch daily. apixaban 2019-0 Yes [id number] 5mg Take 1 [facility] (ELIQUIS) 5 9-10 9103 tablet by ity of mg tablet 00:00: mouth 2 (two) Medical times Branch daily. atorvastati 2019-0 Yes [id number] 40mg Take 1 [facility] n (LIPITOR) 9-10 9103 tablet by ity of 40 mg 00:00: mouth at [place] tablet 00 bedtime. Medical Branch gabapentin 2018-0 Yes [id number] 300mg Take 1 [facility] 300 mg 9-10 9100 capsule by ity of capsule 00:00: mouth 2 (two) Medical times Branch daily. omeprazole 2019-0 Yes [id number] 40mg Take 1 [facility] 40 mg 9-10 9100 capsule by ity of capsule 00:00: mouth [place] 00 daily. Medical Branch carvedilol 2019-0 Yes [id number] 25mg Take 1 [facility] 25 mg 9-10 9103 tablet by ity of tablet 00:00: mouth 2 (two) Medical times Branch daily with meals. digoxin 125 2019-0 Yes [id number] 125ug Take 1 [facility] mcg tablet 9-10 9103 tablet by ity of 00:00: mouth [place] 00 daily. Medical Branch rOPINIRole 2019-0 Yes [id number] 2mg Take 1 [facility] 2 mg tablet 9-10 9103 tablet by ity of 00:00: mouth (two) Medical times Branch daily. apixaban 2019-0 Yes [id number] 5mg Take 1 [facility] (ELIQUIS) 5 9-10 9103 tablet by ity of mg tablet 00:00: mouth 2 (two) Medical times Branch daily. atorvastati 2019-0 Yes [id number] 40mg Take 1 [facility] n (LIPITOR) 9-10 9103 tablet by ity of 40 mg 00:00: mouth at [place] tablet 00 bedtime. Medical Branch gabapentin 2019-0 Yes [id number] 300mg Take 1 [facility] 300 mg 9-10 9100 capsule by ity of capsule 00:00: mouth (two) Medical times Branch daily. omeprazole 2019-0 Yes [id number] 40mg Take 1 [facility] 40 mg 9-10 9100 capsule by ity of capsule 00:00: mouth [place] 00 daily. Medical Branch carvedilol 2018-0 Yes [id number] 25mg Take 1 [facility] 25 mg 9-10 9103 tablet by ity of tablet 00:00: mouth 2 (two) Medical times Branch daily with meals. digoxin 125 2019-0 Yes [id number] 125ug Take 1 [facility] mcg tablet 9-10 9103 tablet by ity of 00:00: mouth [place] 00 daily. Medical Branch rOPINIRole 2018-0 Yes [id number] 2mg Take 1 [facility] 2 mg tablet 9-10 9103 tablet by ity of 00:00: mouth 2 [place] (two) Medical times Branch daily. apixaban 2019-0 Yes [id number] 5mg Take 1 [facility] (ELIQUIS) 5 9-10 9103 tablet by ity of mg tablet 00:00: mouth 2 (two) Medical times Branch daily. atorvastati 2019-0 Yes [id number] 40mg Take 1 [facility] n (LIPITOR) 9-10 9103 tablet by ity of 40 mg 00:00: mouth at [place] tablet 00 bedtime. Medical Branch gabapentin 2019-0 Yes [id number] 300mg Take 1 [facility] 300 mg 9-10 9100 capsule by ity of capsule 00:00: mouth 2 (two) Medical times Branch daily. omeprazole 2019-0 Yes [id number] 40mg Take 1 [facility] 40 mg 9-10 9100 capsule by ity of capsule 00:00: mouth [place] 00 daily. Medical Branch carvedilol 2019-0 Yes [id number] 25mg Take 1 [facility] 25 mg 9-10 9103 tablet by ity of tablet 00:00: mouth (two) Medical times Branch daily with meals. digoxin 125 2019-0 Yes [id number] 125ug Take 1 [facility] mcg tablet 9-10 9103 tablet by ity of 00:00: mouth 00 daily. Medical Branch rOPINIRole 2018-0 Yes [id number] 2mg Take 1 [facility] 2 mg tablet 9-10 9103 tablet by ity of 00:00: mouth 2 (two) Medical times Branch daily. apixaban 2019-0 Yes [id number] 5mg Take 1 [facility] (ELIQUIS) 5 9-10 9103 tablet by ity of mg tablet 00:00: mouth (two) Medical times Branch daily. atorvastati 2019-0 Yes [id number] 40mg Take 1 [facility] n (LIPITOR) 9-10 9103 tablet by ity of 40 mg 00:00: mouth at [place] tablet 00 bedtime. Medical Branch gabapentin 2019-0 Yes [id number] 300mg Take 1 [facility] 300 mg 9-10 9100 capsule by ity of capsule 00:00: mouth 2 (two) Medical times Branch daily. omeprazole 2019-0 Yes [id number] 40mg Take 1 [facility] 40 mg 9-10 9100 capsule by ity of capsule 00:00: mouth [place] 00 daily. Medical Branch carvedilol Yes [id number] 25mg Take 1 [facility] 25 mg 9-10 9103 tablet by ity of tablet 00:00: mouth 2 [place] 00 (two) Medical times Branch daily with meals. digoxin 125 Yes [id number] 125ug Take 1 [facility] mcg tablet 9-10 9103 tablet by ity of 00:00: mouth [place] 00 daily. Medical Branch rOPINIRole Yes [id number] 2mg Take 1 [facility] 2 mg tablet 9-10 9103 tablet by ity of 00:00: mouth 2 [place] 00 (two) Medical times Branch daily. apixaban 2021- No [id number] 5mg Take 1 [facility] (ELIQUIS) 5 9-10 10-15 9103 tablet by it y of mg tablet 00:00: 00:00 mouth 2 [place] 00 :00 (two) Medical times Branch daily. gabapentin 2021- No [id number] 300mg Take 1 [facility] 300 mg 9-04 17-15 9100 capsule by ity of capsule 00:00: 00:00 mouth 2 [place] 00 :00 (two) Medical times Branch daily. carvedilol 2021- No [id number] 25mg Take 1 [facility] 25 mg 9-10 10-15 9103 tablet by ity of tablet 00:00: 00:00 mouth 2 [place] 00 :00 (two) Medical times Branch daily with meals. digoxin 125 2021- No [id number] 125ug Take 1 [facility] mcg tablet 9-10 10-15 9103 tablet by ity of 00:00: 00:00 mouth [place] 00 :00 daily. Medical Branch rOPINIRole 2021- No [id number] 2mg Take 1 [facility] 2 mg tablet 9- 10-15 9103 tablet by it y of 00:00: 00:00 mouth 2 [place] 00 :00 (two) Medical times Branch daily. aztreonam 1 2018- No [id number] 500mg Infuse 500 [facility] gram 03-18 9100 mg every 8 ity of injection 00:00: 04:59 (eight) [place] 00 :00 hours for Medical 7 days. Branch aztreonam 1 2019- No [id number] 500mg Infuse 500 [facility] gram 03-18 9100 mg every 8 ity of injection 00:00: 04:59 (eight) [place] 00 :00 hours for Medical 7 days. Branch fluticasone Yes 1{spray 1 [place], [facility] propionate 03-17 } Nasal, ity of 50 14:00: DAILY, [place] mcg/actuati 00 First dose Me dical on nasal on Mon Branch spray 1 03/17/19 at [place] 0900, Until Discontinu ed, Routine Polyethylen 2018- Yes 17g 17 g, Unive rs e Glycol 03-17 Oral, ity of 3350 02:00: DAILY, [place] (MIRALAX) 00 First dose Medi micky powder 17 g on Sun Branch 03/16/19 at 2100, Until Discontinu ed, Routine phenol 2018- Yes 1{spray 1 [place], Univ ers (SORE 03-16 } Oral, PRN, ity of THROAT 22:22: Starting [place] (PHENOL)) 21 [facility] 03/16/19 Medi micky 1.4 % spray at 1722, Bran ch bottle 1 Until [place] Discontinu ed, Routine, Oral mucositis insulin 2018-0 Yes 12U 12 Units, Unive rs glargine 03-16 Subcutaneo ity o f (LANTUS 02:00: us, [facility], [place] U-100) 00 First dose Medical injection on Sat Branch 12 Units 03/15/19 at 2100, Until Discontinu ed, Routine insulin 2018-0 Yes 5U 5 Units, Univer s glargine 03-15 Subcutaneo ity o f (LANTUS 14:00: us, DAILY, [place] U-100) 00 First dose Medical injection 5 on Sat Branch Units 03/15/19 at 0900, Until Discontinu ed, Routine ketorolac 2018- 2019- No 30mg 30 mg, Unive rs (TORADOL) 03-13 09-05 Slow IV ity of injection 21:15: 21:15 Push, [place] 30 mg 00 :00 ONCE, 1 Medical dose, [place] Branch 03/13/19 at 1615, Routine
member service specialist approving Restricted medication : CHUCKY ELKINS diphenhydrA 2019-0 Yes 25mg 25 mg, Univ ers MINE 03-13 Oral, ity of (BENADRYL) 21:12: Q4HPRN, [place] tablet 25 04 Starting Medica l mg [place] 03/13/19 Branch at 1612, Until Discontinu ed, Routine, Itching, Mild Rash diphenhydrA 2019-0 2019- No 25mg 25 mg, Uni vers MINE 03-1305 Oral, ity of (BENADRYL) 10:09: 10:12 ONCE, 1 [place] as tablet 25 00 :00 dose, [place] Medic al mg 03/13/19 at Branch 0515, Routine atorvastati 2019-0 Yes 40mg 40 mg, Univ ers n (LIPITOR) 03-12 Oral, QHS, it y of tablet 40 02:00: First dose [place] mg 00 on [facility] 03/11/19 at Branch 2100, Until Discontinu ed, Routine digoxin 2019-0 Yes 125ug 125 mcg, Unive rs (LANOXIN) 03-11 Oral, ity of tablet 125 14:00: DAILY, [place] mcg 00 First dose Medical on [facility] 03/11/19 at 0900, Until Discontinu ed, Routine omeprazole 2019-0 Yes 40mg 40 mg, Unive rs (PRILOSEC) 03-11 Oral, ity of capsule 40 14:00: DAILY, [place] mg 00 First dose Medical on [facility] 03/11/19 at 0900, Until Discontinu ed furosemide 2019-0 Yes 40mg 40 mg, Unive rs (LASIX) 03-11 Oral, ity of tablet 40 14:00: DAILY, [place] mg 00 First dose Medical on [facility] 03/11/19 at 0900, Until Discontinu ed, Routine carvedilol 2019-0 Yes 25mg 25 mg, Unive rs (COREG) 03-11 Oral, BID ity of tablet 25 13:00: MEALS, [place] mg 00 First dose Medical on [facility] 03/11/19 at 0800, Until Discontinu ed, Routine apixaban 2019-0 Yes 5mg 5 mg, Univers (ELIQUIS) 03-11 Oral, BID, ity of tablet 5 mg 13:00: First dose [place] 00 on [facility] 03/11/19 at Branch 0800, Until Discontinu ed, Routine levalbutero 2019-0 2019- No .63mg 0.63 mg, Univers l (XOPENEX) 03-11 09-10 Inhalation i ty of nebulizer 13:00: 15:44 , QID, [place] solution 00 :19 First dose Medic al 0.63 mg on Sun Branch 03/11/19 at 0800, Until Discontinu ed, Routine
Approved by: [employer] PROVIDER fluticasone 2019- No 1{puff} 1 Puff, Univers propionate 03-11 0910 Inhalation it y of (FLOVENT 13:00: 15:43 , Q12H, [place] HFA) 44 00 :54 First dose Medica l mcg/actuati on Sun on inhaler 03/11/19 at 1 Puff 0800, Until Discontinu ed Sliding Yes Subcutaneo [facility] ers Scale 03-11 us, AC+HS, ity of Insulin-Reg 12:30: First dose [place] ular + Fsbg 00 on Sun Medica l Testing 03/11/19 at Branch 0730, Until Discontinu ed, Routine pramipexole Yes 2mg 2 mg, [facility] (MIRAPEX) 03-11 Oral, BID, ity of tablet 2 mg 07:00: First dose [place] 00 on Medical 03/11/19 at Branch 0200, Until Discontinu ed
[...]
D uration of therapy: 7 days insulin 2019- No 15U 15 Units, [facility] ers glargine 03-11 09-07 Subcutaneo ity of (LANTUS 04:15: 13:32 us, QHS, [place] U-100) 00 :49 First dose Medical injection on Sun Branch 15 Units 03/10/19 at 2315, Until Discontinu ed, Routine hydralAZINE Yes 10mg 10 mg, [facility] ers (APRESOLINE 03-11 Intravenou it y of ) injection 04:04: s, Q6HPRN, [place] 10 mg 27 Starting Medical 03/10/19 Branch at 2304, Until Discontinu ed, Routine, SBP > 160
Ind ication: Hypertensi ve Emergency gabapentin 2019-0 Yes 300mg 300 mg, Uni vers (NEURONTIN) 03-11 Oral, BID, it y of capsule 300 04:00: First dose [place] mg 00 on Mon Medical 03/10/19 at Branch 2300, Until Discontinu ed, Routine dextrose 2018-0 Yes 250mL 250 mL, IV Un adali 10% (D10W) 03-11 Infusion, ity of bolus 03:23: PRN - SEE [place] infusion 42 INSTRUCTIO Medic al 250 mL [...] [place] KIT) 33 Starting Medical injection 1 Sun03/10/19 Br anch mg at 2223, Until Discontinu ed, SELINA, Blood Glucose < or = 70 mg/dL and patient is unable to swallow or has mental changes. ondansetron Yes 4mg 4 mg, Slow Univers (ZOFRAN 03-11 IV Push, ity of (PF)) 03:14: Q6HPRN, [place] injection 4 56 Starting Medi micky mg Sun03/10/19 Branch at 2214, Until Discontinu ed, Routine, Nausea and Vomiting (N/V) acetaminoph 2018- Yes 650mg 650 mg, Un adali en 03-11 Oral, ity of (TYLENOL) 03:14: Q6HPRN, [place] tablet 650 44 Starting Medic al mg 03/10/19 Branch at 2214, Until Discontinu ed, Routine, Pain (scale 1-3) CYANOCOBALA 2019- No Take by Un adali MIN, 03-11 mouth. ity of VITAMIN 03:12: 00:00 [place] B-12, 48 :00 Medical (VITAMIN Branch B-12 ORAL) Diflupredna 2019- No 1[drp] Place 1 Univers te 03-11 Drop in ity of (DUREZOL) 03:12: 00:00 each eye 4 [place] 0.05 % Drop 48 :00 (four) Medica l times Branch daily. traMADol Yes 50mg 50 mg, Univers (ULTRAM) 03-11 Oral, ity of tablet 50 03:12: BIDPRN, [place] mg 37 Starting Medical 03/10/19 Branch at 2212, Until Discontinu ed, Routine, Pain (scale 4-6), Pain (scale 7-10) meclizine Yes 25mg 25 mg, Univer s (TRAVEL-EAS 03-11 Oral, ity of E 03:06: TIDPRN, [place] (MECLIZINE) 28 Starting Medi micky ) tablet 25 Mon 03/10/19 Br anch mg at 2206, Until Discontinu ed, Routine, Nausea gentamicin 2019- No 5mg/kg 390 mg (5 Univers injection 03-11 mg/kg ?78 ity of 390 mg 02:45: 02:08 kg), IV [place] 00 :00 Piggyback, Medical ONCE, 1 [place] dose, [facility] 03/10/19 at 2145, SELINA
Re ason for Anti-Infec tive: Documented Infection< br>Documen rayna Infection Site: Urine
D uration of Therapy: Other (see Comments) ondansetron 2019- No 4mg 4 mg, Slow Univers (ZOFRAN 03-11 IV Push, ity of (PF)) 02:00: 01:25 ONCE, 1 [place] injection 4 00 :00 dose, [facility] Med ical mg 03/10/19 at Branch 2100, SELINA acetaminoph 2019- No 650mg 650 mg, U nivers en [...] 1,000 mL 00 :00 IV Medical Infusion, [place] ONCE, 1 dose, 03/10/19 at 1845, SELINA gabapentin 2018- No 300mg Take 300 U nivers 300 mg 03-10 mg by ity of capsule 00:00: 00:00 mouth 2 [place] 00 :00 (two) Medical times Branch daily. carvedilol 2019- No [id number] 25mg Take 1 [facility] 25 mg 11-06 9103 tablet by ity of tablet 00:00: 00:00 mouth 2 [place] 00 :00 (two) Medical times Branch daily with meals. linagliptin 2019- No [id number] 5mg Take 1 [facility] (TRADJENTA) 11-06 9103 tablet by it y of 5 mg tablet 00:00: 00:00 mouth [place] 00 :00 daily. Medical Branch atorvastati 2019- No [id number] 40mg Take 1 Univers n (LIPITOR) 11-06 9103 tablet by it y of 40 mg 00:00: 00:00 mouth at [place] tablet 00 :00 bedtime. Medical Branch rOPINIRole 2019- No [id number] 2mg Take 1 [facility] 2 mg tablet 11-06 9103 tablet by it y of 00:00: 00:00 mouth 2 [place] 00 :00 (two) Medical times Branch daily. levalbutero 2019- No [id number] .63mg Inhale Univers l 0.63 mg/3 11-06 9103 0.63 mg 4 it y of mL 00:00: 00:00 (four) [place] nebulizer 00 :00 times Medical solution daily. Branch digoxin 125 2019- No [id number] 125ug Take 1 [facility] mcg tablet 11-06 9103 tablet by ity of 00:00: 00:00 mouth [place] 00 :00 every 48 Medical (forty-eig Branch ht) hours. apixaban 2018- No [id number] 5mg Take 1 [facility] (ELIQUIS) 5 11-06 9103 tablet by it y of mg tablet 00:00: 00:00 mouth 2 [place] 00 :00 (two) Medical times Branch daily. insulin 2018- No [id number] 20U inject 20 [facility] glargine 11-06 9103 Units ity of 100 unit/mL 00:00: 00:00 under the [place] injection 00 :00 skin at Medical bedtime. Branch furosemide 2018- No [id number] 40mg Take 1 [facility] 40 mg 11-06 9103 tablet by ity of tablet 00:00: 00:00 mouth [place] 00 :00 daily. Medical Branch magnesium 2018- No [id number] 800mg Take 2 [facility] oxide 400 11-06 9103 tablets by ity of mg (241.3 00:00: 00:00 mouth 2 [place] mg 00 :00 (two) Medical magnesium) times [place] tablet daily. traMADOL 50 Yes 50mg Take 1 Univ ers mg tablet 1-03 tablet by ity o f 00:00: mouth 2 [place] (two) Medical times Branch daily as needed for Pain (scale 4-6) or Pain (scale 7-10). traMADOL 50 Yes 50mg Take 1 Univ ers mg tablet 1-03 tablet by ity o f 00:00: mouth 2 [place] (two) Medical times Branch daily as needed for Pain (scale 4-6) or Pain (scale 7-10). diphenhydrA 2019- No 25mg Take 1 Uni vers MINE 25 mg 07-11 tablet by ity of tablet 00:00: 00:00 [...] by ity of tablet 00:00: mouth 3 [place] (three) Medical times Branch daily as needed for Nausea. meclizine 2020- No 25mg Take 1 Unive rs 25 mg 5-17 09-15 tablet by ity of tablet 00:00: 00:00 mouth 3 [place] 00 :00 (three) Medical times Branch daily as needed for Nausea. meclizine 2020- No 25mg Take 1 Unive rs 25 mg 5-17 09-15 tablet by ity of tablet 00:00: 00:00 mouth 3 [place] 00 :00 (three) Medical times Branch daily as needed for Nausea. amlodipine amlodipine No 1 Q1D amlodipine [facility] 5 mg tablet 5 mg tablet 5 mg F amily Take 1 Take 1 tablet Practic tablet tablet Take 1 e every day every day tablet by oral by oral every day route. route. by oral route. atorvastati atorvastati No 1 Q1D atorvastat [facility] n 40 mg n 40 mg in 40 mg Famil y tablet Take tablet Take tablet Practic 1 tablet 1 tablet Take 1 e every day every day tablet by oral by oral every day route. route. by oral route. Becky Pena No 18unit( [facility] K[facility] s[facility] KwikPen Family U-100 [...] route. carvedilol carvedilol No 1 BID carvedilol [facility] 25 mg 25 mg 25 mg Family tablet Take tablet Take tablet Practic 1 tablet 1 tablet Take 1 e twice a day twice a day tablet by oral by oral twice a route. route. day by oral route. clonidine clonidine No 1 clonidine [facility] HCl 0.1 mg HCl 0.1 mg HCl [...] route. furosemide furosemide No 1 Q1D furosemide [facility] 40 mg 40 mg 40 mg Family tablet Take tablet Take tablet Practic 1 tablet 1 tablet Take 1 e every day every day tablet by oral by oral every day route. route. by oral route. gabapentin gabapentin No 1capsul TID gabapentin [facility] 300 mg 300 mg e(s) 300 mg Family capsule capsule capsule Practi c Take 1 Take 1 Take 1 e capsule 3 capsule 3 capsule 3 times a day times a day times a by oral by oral day by route. route. oral route. omeprazole omeprazole No 1capsul Q1D omeprazole [facility] 40 mg 40 mg e(s) 40 mg Family capsule,del capsule,del capsule,de Practic ayed ayed layed e release release release Take 1 Take 1 Take 1 capsule capsule capsule every day every day every day by oral by oral by oral route. route. route. Immunizations Ordered Filled Immunization Date Status Comments [facility] e Immunization Name Name Influenza Virus 2021-04-30 Completed Universit y of Vaccine 00:00:00 [facility] Influenza Virus 2021-04-30 Completed Universit y of Vaccine 00:00:00 [facility] Influenza Virus 2021-04-30 Completed Universit y of Vaccine 00:00:00 [facility] SARS-COV-2 COVID-19 2021-03-31 Completed Unive rsity of PFIZER RIKKI-SUCROSE 00:00:00 [facility] (NIXON TOP) Branch SARS-COV-2 COVID-19 2021-03-31 Completed Unive rsity of PFIZER RIKKI-SUCROSE 00:00:00 [place] [facility] (NIXON TOP) Branch SARS-COV-2 COVID-19 2021-03-31 Completed Unive rsity of PFIZER RIKKI-SUCROSE 00:00:00 [facility] (NIXON TOP) Branch SARS-COV-2 COVID-19 2020-10-18 Completed Unive rsity of PFIZER VACCINE 00:00:00 [facility] Branch SARS-COV-2 COVID-19 2020-10-18 Completed Unive rsity of PFIZER VACCINE 00:00:00 [facility] Branch SARS-COV-2 COVID-19 2020-10-18 Completed Unive rsity of PFIZER VACCINE 00:00:00 [place] [facility] Branch SARS-COV-2 COVID-19 2020-10-18 Completed Unive rsity of PFIZER VACCINE 00:00:00 [facility] Branch SARS-COV-2 COVID-19 2020-10-18 Completed Unive rsity of PFIZER VACCINE 00:00:00 [facility] Branch SARS-COV-2 COVID-19 2020-10-18 Completed Unive rsity of PFIZER VACCINE 00:00:00 [facility] Branch SARS-COV-2 COVID-19 2020-10-18 Completed Unive rsity of PFIZER VACCINE 00:00:00 [facility] Branch SARS-COV-2 COVID-19 2020-10-18 Completed Unive rsity of PFIZER VACCINE 00:00:00 [facility] Branch SARS-COV-2 COVID-19 2020-10-18 Completed Unive rsity of PFIZER VACCINE 00:00:00 [facility] Branch SARS-COV-2 COVID-19 2020-10-18 Completed Unive rsity of PFIZER VACCINE 00:00:00 [facility] Branch SARS-COV-2 COVID-19 2020-10-18 Completed Unive rsity of PFIZER VACCINE 00:00:00 [facility] Branch SARS-COV-2 COVID-19 2020-10-18 Completed Unive rsity of PFIZER VACCINE 00:00:00 [facility] Branch SARS-COV-2 COVID-19 2020-10-18 Completed Unive rsity of PFIZER VACCINE 00:00:00 [facility] Branch SARS-COV-2 COVID-19 2020-10-18 Completed Unive rsity of PFIZER VACCINE 00:00:00 [facility] Branch SARS-COV-2 COVID-19 2020-10-18 Completed Unive rsity of PFIZER VACCINE 00:00:00 [facility] Branch SARS-COV-2 COVID-19 2020-10-18 Completed Unive rsity of PFIZER VACCINE 00:00:00 [facility] Branch SARS-COV-2 COVID-19 2020-10-18 Completed Unive rsity of PFIZER VACCINE 00:00:00 [facility] Branch SARS-COV-2 COVID-19 2020-10-18 Completed Unive rsity of PFIZER VACCINE 00:00:00 [facility] Branch SARS-COV-2 COVID-19 2020-10-18 Completed Unive rsity of PFIZER VACCINE 00:00:00 [facility] Branch SARS-COV-2 COVID-19 2020-10-18 Completed Unive rsity of PFIZER VACCINE 00:00:00 [facility] Branch SARS-COV-2 COVID-19 2020-10-18 Completed Unive rsity of PFIZER VACCINE 00:00:00 [facility] Branch SARS-COV-2 COVID-19 2020-10-18 Completed Unive rsity of PFIZER VACCINE 00:00:00 [facility] Branch SARS-COV-2 COVID-19 2020-09-27 Completed Unive rsity of PFIZER VACCINE 00:00:00 [facility] Branch SARS-COV-2 COVID-19 2020-09-27 Completed Unive rsity of PFIZER VACCINE 00:00:00 [facility] Branch SARS-COV-2 COVID-19 2020-09-27 Completed Unive rsity of PFIZER VACCINE 00:00:00 [facility] Branch SARS-COV-2 COVID-19 2020-09-27 Completed Unive rsity of PFIZER VACCINE 00:00:00 [facility] Branch SARS-COV-2 COVID-19 2020-09-27 Completed Unive rsity of PFIZER VACCINE 00:00:00 [facility] Branch SARS-COV-2 COVID-19 2020-09-27 Completed Unive rsity of PFIZER VACCINE 00:00:00 [facility] Branch SARS-COV-2 COVID-19 2020-09-27 Completed Unive rsity of PFIZER VACCINE 00:00:00 [facility] Branch SARS-COV-2 COVID-19 2020-09-27 Completed Unive rsity of PFIZER VACCINE 00:00:00 [facility] Branch SARS-COV-2 COVID-19 2020-09-27 Completed Unive rsity of PFIZER VACCINE 00:00:00 [facility] Branch SARS-COV-2 COVID-19 2020-09-27 Completed Unive rsity of PFIZER VACCINE 00:00:00 [facility] SARS-COV-2 COVID-19 2020-09-27 Completed Unive rsity of PFIZER VACCINE 00:00:00 [facility] SARS-COV-2 COVID-19 2020-09-27 Completed Unive rsity of PFIZER VACCINE 00:00:00 [facility] SARS-COV-2 COVID-19 2020-09-27 Completed Unive rsity of PFIZER VACCINE 00:00:00 [facility] SARS-COV-2 COVID-19 2020-09-27 Completed Unive rsity of PFIZER VACCINE 00:00:00 [facility] SARS-COV-2 COVID-19 2020-09-27 Completed Unive rsity of PFIZER VACCINE 00:00:00 [facility] SARS-COV-2 COVID-19 2020-09-27 Completed Unive rsity of PFIZER VACCINE 00:00:00 [facility] SARS-COV-2 COVID-19 2020-09-27 Completed Unive rsity of PFIZER VACCINE 00:00:00 [facility] SARS-COV-2 COVID-19 2020-09-27 Completed Unive rsity of PFIZER VACCINE 00:00:00 [facility] SARS-COV-2 COVID-19 2020-09-27 Completed Unive rsity of PFIZER VACCINE 00:00:00 [facility] SARS-COV-2 COVID-19 2020-09-27 Completed Unive rsity of PFIZER VACCINE 00:00:00 [facility] SARS-COV-2 COVID-19 2020-09-27 Completed Unive rsity of PFIZER VACCINE 00:00:00 [facility] SARS-COV-2 COVID-19 2020-09-27 Completed Unive rsity of PFIZER VACCINE 00:00:00 [facility] Influenza Virus 2018-04-22 Completed Universit y of Vaccine 00:00:00 [facility] Influenza Virus 2018-04-22 Completed Universit y of Vaccine 00:00:00 [facility] Influenza Virus 2018-04-22 Completed Universit y of Vaccine 00:00:00 [facility] Influenza Virus 2018-04-22 Completed Universit y of Vaccine 00:00:00 [facility] Influenza Virus 2018-04-22 Completed Universit y of Vaccine 00:00:00 [facility] Influenza Virus 2018-04-22 Completed Universit y of Vaccine 00:00:00 [facility] Influenza Virus 2018-04-22 Completed Universit y of Vaccine 00:00:00 [facility] Influenza Virus 2018-04-22 Completed Universit y of Vaccine 00:00:00 [facility] Influenza Virus 2018-04-22 Completed Universit y of Vaccine 00:00:00 [facility] Influenza Virus 2018-04-22 Completed Universit y of Vaccine 00:00:00 [facility] Influenza Virus 2018-04-22 Completed Universit y of Vaccine 00:00:00 [facility] Influenza Virus 2018-04-22 Completed Universit y of Vaccine 00:00:00 [facility] Influenza Virus 2018-04-22 Completed Universit y of Vaccine 00:00:00 [facility] Influenza Virus 2018-04-22 Completed Universit y of Vaccine 00:00:00 [facility] Influenza Virus 2018-04-22 Completed Universit y of Vaccine 00:00:00 [facility] Influenza Virus 2018-04-22 Completed Universit y of Vaccine 00:00:00 [facility] Influenza Virus 2018-04-22 Completed Universit y of Vaccine 00:00:00 [facility] Influenza Virus 2018-04-22 Completed Universit y of Vaccine 00:00:00 [facility] Influenza Virus 2018-04-22 Completed Universit y of Vaccine 00:00:00 [facility] Influenza Virus 2018-04-22 Completed Universit y of Vaccine 00:00:00 [facility] Influenza Virus 2018-04-22 Completed Universit y of Vaccine 00:00:00 [facility] Influenza Virus 2018-04-22 Completed Universit y of Vaccine 00:00:00 [facility] Influenza Virus 2018-04-22 Completed Universit y of Vaccine 00:00:00 [facility] Influenza Virus 2018-04-22 Completed Universit y of Vaccine 00:00:00 [facility] Influenza Virus 2018-04-22 Completed Universit y of Vaccine 00:00:00 [facility] Influenza Virus 2018-04-22 Completed Universit y of Vaccine 00:00:00 [facility] Influenza Virus 2018-04-22 Completed Universit y of Vaccine 00:00:00 [facility] Influenza Virus 2018-04-22 Completed Universit y of Vaccine 00:00:00 [facility] Influenza Virus 2018-04-22 Completed Universit y of Vaccine 00:00:00 [facility] Influenza Virus 2018-04-22 Completed Universit y of Vaccine 00:00:00 [facility] Influenza Virus 2018-04-22 Completed Universit y of Vaccine 00:00:00 [facility] Influenza Virus 2018-04-22 Completed Universit y of Vaccine 00:00:00 [facility] Influenza Virus 2018-04-22 Completed Universit y of Vaccine 00:00:00 [facility] Influenza Virus 2018-04-22 Completed Universit y of Vaccine 00:00:00 [facility] Pneumococcal 2017-07-23 Completed University o f [...] ical PPSV23 (PNEUMOVAX) Branch Pneumococcal 2017-07-23 Completed Andrew o f Polysaccharide, 00:00:00 [place] [facility] PPSV23 (PNEUMOVAX) Branch Pneumococcal 2017-07-23 Completed Andrew o f Polysaccharide, 00:00:00 [place] [facility] PPSV23 (PNEUMOVAX) Branch Pneumococcal 2017-07-23 Completed Andrew o f Polysaccharide, 00:00:00 [place] [facility] ical PPSV23 (PNEUMOVAX) Branch Vital Signs Vital Name Observation Time Observation Value Comments Source Systolic blood 2022-04-22 12:26:00 135 mm[Hg] Univer sity of pressure [facility] Diastolic blood 2022-04-22 12:26:00 52 mm[Hg] Unive rsity of [facility] Heart rate 2022-04-22 12:26:00 70 /min Universi ty [facility] Body temperature 2022-04-22 12:26:00 35.72 Kourtney Univ ersity [facility] Respiratory rate 2022-04-22 12:26:00 18 /min Univ ersity [facility] Oxygen saturation in 2022-04-22 12:26:00 91 /min University of Arterial blood by [place] [employer] Pulse oximetry Branch Body weight 2022-04-22 09:23:00 [facility] BMI 2022-04-22 09:23:00 27.72 kg/m2 [facility] Body height 2022-04-19 00:56:00 170.2 cm [facility] Systolic blood 2021-12-14 17:00:00 160 mm[Hg] Univer sity of [facility] Diastolic blood 2021-12-14 17:00:00 85 mm[Hg] Unive rsity of [facility] Heart rate 2021-12-14 17:00:00 59 /min Universi ty [facility] Respiratory rate 2021-12-14 17:00:00 15 /min Univ ersity of [facility] Oxygen saturation in 2021-12-14 17:00:00 94 /min University of Arterial blood by [place] [employer] Pulse oximetry Branch Body temperature 2021-12-14 14:36:00 35.56 Kourtney Univ ersity [facility] Body height 2021-12-14 14:36:00 170.2 cm [facility] [place] [facility] Body weight 2021-12-14 14:36:00 81.194 kg Universi ty of [place] [facility] BMI 2021-12-14 14:36:00 28.04 kg/m2 Universi ty [facility] [place] [facility] Systolic blood 2021-04-06 17:00:00 114 mm[Hg] Univer sity of pressure [place] [facility] Diastolic blood 2021-04-06 17:00:00 55 mm[Hg] Unive rsity of pressure [place] [facility] Heart rate 2021-04-06 17:00:00 60 /min Universi ty [facility] [place] [facility] Body temperature 2021-04-06 17:00:00 36.67 Kourtney Univ ersity of [place] [facility] Respiratory rate 2021-04-06 17:00:00 16 /min Univ ersity of [place] [facility] Oxygen saturation in 2021-04-06 17:00:00 98 /min University of Arterial blood by [place] [employer] Pulse oximetry Branch Body height 2021-04-06 13:02:54 170.2 cm Universi ty [facility] [place] [facility] Body weight 2021-04-06 13:02:54 86.637 kg Universi ty [facility] [place] [facility] BMI 2021-04-06 13:02:54 29.91 kg/m2 [facility]i ty [facility] [place] [facility] Systolic blood 2021-03-29 16:00:00 126 mm[Hg] Univer sity of pressure [place] [facility] Diastolic blood 2021-03-29 16:00:00 83 mm[Hg] Unive rsity of pressure [place] [facility] Heart rate 2021-03-29 16:00:00 68 /min Universi ty [facility] [place] [facility] Body temperature 2021-03-29 16:00:00 35.56 Kourtney Univ ersity of [place] [facility] Respiratory rate 2021-03-29 16:00:00 26 /min Univ ersity of [place] [facility] Oxygen saturation in 2021-03-29 16:00:00 83 /min University of Arterial blood by [employer] Pulse oximetry Branch Body weight 2021-03-26 09:11:00 86.909 kg Universi ty [facility] [place] [facility] BMI 2021-03-26 09:11:00 30.01 kg/m2 [facility]i ty [facility] [place] [facility] Body height 2021-03-23 20:50:00 170.2 cm Universi ty of [facility] Systolic blood 2021-03-17 20:36:00 155 mm[Hg] Univer sity of pressure [facility] Diastolic blood 2021-03-17 20:36:00 82 mm[Hg] Unive rsity of pressure [facility] Heart rate 2021-03-17 20:32:00 87 /min Universi ty of [facility] Body temperature 2021-03-17 20:32:00 36.22 Kourtney Univ ersity of [facility] Respiratory rate 2021-03-17 20:32:00 17 /min [facility] Oxygen saturation in 2021-03-17 20:32:00 94 /min [facility] Arterial blood by [facility] Pulse oximetry Branch Body height 2021-03-16 23:00:00 170.2 cm Universi ty of [facility] Body weight 2021-03-16 23:00:00 95.981 kg Universi ty of [facility] BMI 2021-03-16 23:00:00 33.14 kg/m2 Universi ty of [facility] Height 2020-03-22 00:00:00 67 [in_i] [facility] Height 2020-02-18 00:00:00 67 [in_i] [facility] Height 2019-12-18 00:00:00 67 [in_i] [facility] BMI (Body Mass 2019-12-18 00:00:00 27.4 kg/m2 [facility] Body Weight 2019-12-18 00:00:00 175 [lb_av] [facility] Body height 2019-08-14 16:46:00 170.2 cm Universi ty of [facility] Body weight 2019-08-14 16:46:00 78.019 kg Universi ty of [facility] BMI 2019-08-14 16:46:00 26.94 kg/m2 Universi ty of [facility] Systolic blood 2019-03-18 20:40:00 144 mm[Hg] Univer sity of pressure [facility] Diastolic blood 2019-03-18 20:40:00 73 mm[Hg] Unive rsity of pressure [facility] Heart rate 2019-03-18 20:40:00 85 /min Universi ty of [facility] Body temperature 2019-03-18 20:40:00 37 Kourtney [facility] Respiratory rate 2019-03-18 20:40:00 20 /min [facility] Oxygen saturation in 2019-03-18 20:40:00 95 /min [facility] blood by [facility] Pulse oximetry [place] Body height 2019-03-11 02:48:00 170.2 cm [facility] Body weight 2019-03-11 02:48:00 81.647 kg [facility] BMI 2019-03-11 02:48:00 28.19 kg/m2 [facility] Procedures Procedure Date / Time Performing Clinician Source Performed POCT GLUCOSE (AUTOMATED) 2022-04-22 16:29:00 Elham Underwood [facility] COVID-19 (ID NOW RAPID 2022-04-22 15:53:00 Rosio Sarmiento [facility] TESTING) [facility] POCT GLUCOSE (AUTOMATED) 2022-04-22 12:28:00 Elham Underwood [facility] CBC WITH DIFF 2022-04-22 09:19:00 Rosio Sarmiento [facility] TRANSFUSE PACKED RBC 2022-04-22 03:12:00 Rosio Sarmiento [facility] PREPARE PACKED RBC 2022-04-22 02:57:42 Rosio Sarmiento [facility] POCT GLUCOSE (AUTOMATED) 2022-04-22 01:52:00 Elham Underwood [facility] POCT GLUCOSE (AUTOMATED) 2022-04-21 21:41:00 Elham Underwood [facility] HB ABO GROUPING 2022-04-21 20:50:00 Rosio Sarmiento [facility] COVID-19 (ID NOW RAPID 2022-04-21 18:57:00 Rosio Sarmiento [facility] TESTING) [facility] POCT GLUCOSE (AUTOMATED) 2022-04-21 16:33:00 Elham Underwood [facility] POCT GLUCOSE (AUTOMATED) 2022-04-21 12:31:00 Elham Underwood [facility] CBC WITH DIFF 2022-04-21 10:17:00 Rosio Sarmiento [facility] POCT GLUCOSE (AUTOMATED) 2022-04-21 02:20:00 Elham Underwood [facility] POCT GLUCOSE (AUTOMATED) 2022-04-20 21:18:00 Elham Underwood [facility] POCT GLUCOSE (AUTOMATED) 2022-04-20 16:48:00 Elham Underwood [facility] POCT GLUCOSE (AUTOMATED) 2022-04-20 12:41:00 Elham Underwood [facility] HB ABO GROUPING 2022-04-20 10:19:00 Elham Underwood [facility] PHOSPHORUS 2022-04-20 10:15[facility]-20 10:15:00 Patricia [facility] TROPONIN I 2022-04-20 10:15:00 Patricia [facility] HEPATIC FUNCTION PANEL 2022-04-20 10:15:00 [id number]/BC,ALT,AST,ALK PHOS) BASIC METABOLIC PANEL 2022-04-20 10:15:00 Elham Underwood [facility] (NA, K, CL, CO2, GLUCOSE, Medica l Branch BUN, CREATININE, CA) CBC WITH DIFF 2022-04-20 10:15:00 Elham Underwood [facility] N-TERMINAL PRO-BNP 2022-04-20 10:15:00 Elham Underwood [facility] POCT GLUCOSE (AUTOMATED) 2022-04-20 01:06:00 Elham Underwood [facility] POCT GLUCOSE (AUTOMATED) 2022-04-19 21:32:00 Elham Underwood [facility] HEMOGLOBIN 2022-04-19 17:07:00 Elham Underwood [facility] POCT GLUCOSE (AUTOMATED) 2022-04-19 16:54:00 Elham Underwood [facility] TRANSTHORACIC ECHO (TTE) 2022-04-19 13:43:[address] [facility] VITAMIN B12, LEVEL 2022-04-19 12:58:00 Elham Underwood [facility] FOLATE 2022-04-19 12:58:00 Elham Underwood [facility] HEMOGLOBIN 2022-04-19 12:58:00 Elham Underwood [facility] VITAMIN D, 25-OH 2022-04-19 12:58:00 Elham Underwood [facility] PHOSPHORUS 2022-04-19 12:57:00 Elham Underwood [facility] TROPONIN I 2022-04-19 12:57:00 Neptali Carver [facility] PROTHROMBIN TIME / INR 2022-04-19 12:57:00 Elham Underwood [facility] ACTIVATED PARTIAL 2022-04-19 12:57:00 Elham Underwood [facility] 2022-04-19 12:57:00 Elham Underwood [facility] POCT GLUCOSE (AUTOMATED) 2022-04-19 12:42:00 Elham Underwood [facility] URINE DRUG (IMMUNOASSAY) 2022-04-19 10:56:00 Daniela Hamm [facility] SCREEN UREA NITROGEN, URINE 2022-04-19 10:56:00 Daniela Hamm [facility] SODIUM, URINE RANDOM 2022-04-19 10:56:00 Daniela Hamm [facility] PROTEIN CREAT RATIO URINE 2022-04-19 10:56:00 [facility]-04-19 09:55:00 Daniela Hamm [facility] TROPONIN I 2022-04-19 09:55:00 Daniela Hamm [facility] BASIC METABOLIC PANEL 2022-04-19 09:55:00 Abdullah, Elham [facility] (NA, K, CL, CO2, GLUCOSE, Medica l Branch BUN, CREATININE, CA) DIFF CONSULT 2022-04-19 09:55:[address] [facility] INTERPRETATION [facility] CBC WITH DIFF 2022-04-19 09:55:00 Patricia [facility] N-TERMINAL PRO-BNP 2022-04-19 09:55:00 Hansel abbe [facility] CREATINE KINASE 2022-04-19 03:28:00 Hansel abbe [facility] MAGNESIUM 2022-04-19 03:28:00 Hansel [facility] TROPONIN I 2022-04-19 03:28:00 Hansel [facility] LIPID PANEL ([id number])(TOTAL 2022-04-19 03:28:00 Daniela Hamm [facility] CHOLESTEROL, [facility] TRIGLYCERIDES, HDL) DIGOXIN 2022-04-19 03:28:00 Hansel abbe [facility] SEDIMENTATION RATE 2022-04-19 03:28:00 Hansel [facility] PROTHROMBIN TIME / INR 2022-04-19 03:28:00 [facility] POCT GLUCOSE (AUTOMATED) 2022-04-19 01:47:00 Elham Underwood [facility] CO RESUP NPTERF WND BODY 2022-04-18 22:04:24 Terell Mims [facility] 2.6-7.5 [address] [facility] [address] THORACIC SPINE WO 2022-04-18 20:35:24 Terell Mims [facility] CONTRAST [facility] CT THORAX WO CONTRAST 2022-04-18 20:35:24 Terell Mims [facility] URINALYSIS 2022-04-18 19:15:00 Terell Mims [facility] XR CHEST 1 VW 2022-04-18 17:56:00 Terell Mims [facility] XR SHOULDER <2 VW LEFT 2022-04-18 17:56:00 Terell Mims [facility] CT CERVICAL SPINE WO 2022-04-18 17:53:00 Terell Mims [facility] CONTRAST [facility] CT HEAD WO CONTRAST 2022-04-18 17:53:00 Terell Mims [facility] HB ECG ROUTINE & RHYTHM 2022-04-18 16:45:19 Terell Mims [facility] FERRITIN SERUM 2022-04-18 16:40:00 Patricia [facility] TROPONIN I 2022-04-18 16:40:00 Terell Mims [facility] THYROID STIMULATING 2022-04-18 16:40:00 Elham Underwood [facility] HORMONE [facility] COMP. METABOLIC PANEL 2022-04-18 16:40:00 Terell [facility] ([id number]) [facility] IRON PANEL 2022-04-18 16:40:00 [facility]FF 2022-04-18 16:40:00 Terell Mims [facility] GLYCOSYLATED HEMOGLOBIN 2022-04-18 16:40:00 Neptali Carver [facility] (A1C) [facility] N-TERMINAL PRO-BNP 2022-04-18 16:40:00 Terell Mims [facility] XR KNEE 3 VW RIGHT 2021-12-14 17:42:47 Yuri Dias [facility] URINALYSIS 2021-12-14 16:20:00 Singer [facility] CT CERVICAL SPINE WO 2021-12-14 15:45:31 Yuri Dais [facility] CONTRAST [facility] CT HEAD WO CONTRAST 2021-12-14 15:45:31 Yuri Dias [facility] XR CHEST 1 VW 2021-12-14 15:10:01 Singer [facility] TROPONIN I 2021-12-14 14:50:00 Singer Yuri [facility] COMP. METABOLIC PANEL 2021-12-14 14:50:00 Yuri [place]as [place] ([id number]) Medical Branch CBC WITH DIFF 2021-12-14 14:49:00 Dias, Yuri Andrew o f [facility] AUTHORIZATION FOR RELEASE 2021-10-24 05:01:00 Doctor Unassigned, No [facility] EXTERNAL PROVIDER RECORDS 2021-04-20 05:01:00 Doctor Unassigned, No [facility] ED LACERATION REPAIR 2021-04-06 14:26:04 Winifred Gill [facility] CT TRAUMA HEAD WO 2021-04-06 13:33:06 [facility] TRAUMA CERVICAL SPINE 2021-04-06 13:33:06 [facility] WO [facility] XR CHEST 1 VW 2021-04-06 13:20:21 [facility] XR KNEE 3 VW BILATERAL 2021-04-06 13:20:21 Barney Bland [facility] COMP. METABOLIC PANEL 2021-04-06 13:13:00 Barney Bland [facility] ([id number]) [facility] CBC WITH DIFF 2021-04-06 13:13:00 Barney Bland [facility] PROTHROMBIN TIME / INR 2021-04-06 13:13:00 Barney Bland [facility] HB ABO GROUPING 2021-04-06 13:11:00 Barney Bland [facility] POCT GLUCOSE (AUTOMATED) 2021-03-29 16:36:00 Jad Gavin [facility] POCT GLUCOSE (AUTOMATED) 2021-03-29 12:42:00 Jad Gavin [facility] URINALYSIS 2021-03-29 09:49:00 Lindsey Olson [facility] OSMOLALITY URINE 2021-03-29 09:48:00 Lindsey Olson [facility] PHOSPHORUS 2021-03-29 09:45:00 Lindsey Olson [facility] URIC ACID 2021-03-29 09:45:00 Lindsey Olson [facility] MAGNESIUM 2021-03-29 09:45:00 Lindsey Olson [facility] OSMOLALITY, SERUM OR 2021-03-29 09:45:00 Lindsey Olson [facility] PLASMA [facility] COMP. METABOLIC PANEL 2021-03-29 09:45:00 [facility] ([id number]) [facility] POCT GLUCOSE (AUTOMATED) 2021-03-29 01:21:00 Jad Gavin [facility] POCT GLUCOSE (AUTOMATED) 2021-03-28 21:38:00 Jad Gavin [facility] POCT GLUCOSE (AUTOMATED) 2021-03-28 16:39:00 Jad Gavin [facility] POCT GLUCOSE (AUTOMATED) 2021-03-28 12:21:00 Jad Gavin [facility] BASIC METABOLIC PANEL 2021-03-28 10:40:00 Jad Gavin [facility] (NA, K, CL, CO2, GLUCOSE, Medica l Branch BUN, CREATININE, CA) CBC WITH DIFF 2021-03-28 10:40:00 Jad Gavin [facility] POCT GLUCOSE (AUTOMATED) 2021-03-28 01:57:00 Jad Gavin [facility] POCT GLUCOSE (AUTOMATED) 2021-03-27 22:18:00 Jad Gavin [facility] POCT GLUCOSE (AUTOMATED) 2021-03-27 16:41:00 Jad Gavin [facility] POCT GLUCOSE (AUTOMATED) 2021-03-27 12:57:00 Jad Gavin [facility] BASIC METABOLIC PANEL 2021-03-27 11:28:00 Jad Gavin [facility] (NA, K, CL, CO2, GLUCOSE, Medica l Branch BUN, CREATININE, CA) CBC WITH DIFF 2021-03-27 11:28:00 Jad Gavin [facility] POCT GLUCOSE (AUTOMATED) 2021-03-27 00:56:00 Jad Gavin [facility] POCT GLUCOSE (AUTOMATED) 2021-03-26 20:51:00 Jad Gavin [facility] POCT GLUCOSE (AUTOMATED) 2021-03-26 17:05:00 Jad Gavin [facility] POCT GLUCOSE (AUTOMATED) 2021-03-26 12:46:00 Jda Gavin [facility] POCT GLUCOSE (AUTOMATED) 2021-03-26 00:46:00 Jad Gavin [facility] POCT GLUCOSE (AUTOMATED) 2021-03-25 21:58:00 Jad Gavin [facility] POCT GLUCOSE (AUTOMATED) 2021-03-25 16:00:00 Jad Gavin [facility] POCT GLUCOSE (AUTOMATED) 2021-03-25 12:52:00 Jad Gavin [facility] BASIC METABOLIC PANEL 2021-03-25 10:20:00 Jad Gavin [facility] (NA, K, CL, CO2, GLUCOSE, Medica l Branch BUN, CREATININE, CA) CBC WITH DIFF 2021-03-25 10:20:00 Jad Gavin Andrew o [facility] POCT GLUCOSE (AUTOMATED) 2021-03-25 00:26:00 Jad Gavin [facility] POCT GLUCOSE (AUTOMATED) 2021-03-24 21:13:00 Jad Gavin [facility] POCT GLUCOSE (AUTOMATED) 2021-03-24 16:57:00 Jad Gavin [facility] POCT GLUCOSE (AUTOMATED) 2021-03-24 12:58:00 Jad Gavin [facility] POCT GLUCOSE (AUTOMATED) 2021-03-24 01:29:00 Jad Gavin [facility] POCT GLUCOSE (AUTOMATED) 2021-03-23 21:32:00 Jad Gavin [facility] MRSA / MSSA SCREEN BY 2021-03-23 20:46:00 Marisol Bella [facility] PCR, NARES Medical Branch URINALYSIS 2021-03-23 16:15:00 Singer [facility] o f [place] Medical [facility] CT CHEST PULMONARY 2021-03-23 15:50:42 Singer [facility] ANGIOGRAM Medical Branch TROPONIN I 2021-03-23 15:27:00 Singer [facility] COMP. METABOLIC PANEL 2021-03-23 15:27:00 Singer [facility] ([id number]) [facility] CBC WITH DIFF 2021-03-23 15:27:00 Singer [facility] N-TERMINAL PRO-BNP 2021-03-23 15:27:[address] [facility] EKG-12 LEAD 2021-03-23 15:24:20 Singer [facility] POCT GLUCOSE (AUTOMATED) 2021-03-17 22:19:00 [facility] TRAN[facility] (TTE) 2021-03-17 19:57:00 [facility] W/ CONTRAST Medical [facility] POCT GLUCOSE (AUTOMATED) 2021-03-17 16:51:00 Cindy [facility] POCT GLUCOSE (AUTOMATED) 2021-03-17 13:12:00 Cindy [facility] CBC WITH DIFF 2021-03-17 09:46:00 Gillette [facility] MAGNESIUM 2021-03-17 09:45:00 Gillette [facility] C-REACTIVE PROTEIN 2021-03-17 09:45:00 Cedrick Ojeda [facility] BASIC METABOLIC PANEL 2021-03-17 09:45:00 Leta [facility] (NA, K, CL, CO2, GLUCOSE, Medica l Branch BUN, CREATININE, CA) POCT GLUCOSE (AUTOMATED) 2021-03-17 02:14:00 Cindy [facility] BASIC METABOLIC PANEL 2021-03-17 01:46:00 Gillette, [facility] (NA, K, CL, CO2, GLUCOSE, Medica l Branch BUN, CREATININE, CA) PROTHROMBIN TIME / INR 2021-03-17 01:46:00 Gillette, [facility] LACTIC ACID WHOLE BLOOD 2021-03-17 01:46:00 Gillette, [facility] POCT GLUCOSE (AUTOMATED) 2021-03-16 22:37:00 Gemma White [facility] XR CHEST 1 VW 2021-03-16 16:04:12 Andriy Pierson [facility] URINALYSIS 2021-03-16 16:01:00 Andriy Pierson [facility] PROCALCITONIN 2021-03-16 15:41:00 Andriy Pierson [facility] HB ECG ROUTINE & RHYTHM 2021-03-16 15:35:04 Andriy Pierson [facility] BLOOD CULTURE SCREEN 2021-03-16 15:32:00 Andriy Pierson [facility] LACTATE DEHYDROGENASE 2021-03-16 15:32:00 [facility] FERRITIN SERUM 2021-03-16 15:25:00 Andriy Pierson [facility] TROPONIN I 2021-03-16 15:25:00 Andriy Pierson [facility] COMP. METABOLIC PANEL 2021-03-16 15:25:00 [id number] CBC WITH DIFF 2021-03-16 15:25:00 Andriy Pierson [facility] GLYCOSYLATED HEMOGLOBIN 2021-03-16 15:25:00 Leta [facility] (A1C) [facility] PROTHROMBIN TIME / INR 2021-03-16 15:25:00 Andriy Pierson [facility] D-DIMER 2021-03-16 15:25:00 Andriy Pierson [facility] FIBRINOGEN 2021-03-16 15:25:00 Andriy Pierson [facility] N-TERMINAL PRO-BNP 2021-03-16 15:25:00 Andriy Pierson [facility] LACTIC ACID WHOLE BLOOD 2021-03-16 15:24:00 Andriy Pierson Uni [facility] CBC WITH DIFF 2021-01-22 15:25:00 Lindsey Olson [facility] ASSIGNMENT OF BENEFITS 2021-01-22 15:09:35 Doctor Unassigned, No [facility] ASSIGNMENT OF BENEFITS 2020-09-10 21:16:10 Doctor Unassigned, No [facility] MR BRAIN WO CONTRAST 2020-05-04 18:46:12 Requisition, Paper [facility] CONSENT/REFUSAL FOR 2020-05-04 17:42:43 [facility], [facility] XR KNEE 3 VW RIGHT 2019-08-11 18:42:30 Jaiden Luna [facility] EXTERNAL PROVIDER RECORDS 2019-07-31 06:01:00 Doctor Unassigned, No [facility] AUTHORIZATION FOR RELEASE 2019-07-03 06:01:00 Doctor Unassigned, No [facility] POCT GLUCOSE (AUTOMATED) 2019-03-18 16:30:00 [facility] POCT GLUCOSE (AUTOMATED) 2019-03-18 12:21:00 [facility] BASIC METABOLIC PANEL 2019-03-18 09:26:00 Elham Underwood [facility] (NA, K, CL, CO2, GLUCOSE, Medica l Branch BUN, CREATININE, CA) POCT GLUCOSE (AUTOMATED) 2019-03-18 06:44:00 Taina Castro [facility] POCT GLUCOSE (AUTOMATED) 2019-03-18 01:38:00 [facility] XR CHEST 1 VW 2019-03-17 22:07:36 Elham Underwood Andrew o f [facility] POCT GLUCOSE (AUTOMATED) 2019-03-17 21:58:00 Taina Castro [facility] POCT GLUCOSE (AUTOMATED) 2019-03-17 16:09:00 Taina Castro [facility] CBC WITH DIFFERENTIAL 2019-03-17 12:37:00 Chucky Elkins [facility] POCT GLUCOSE (AUTOMATED) 2019-03-17 12:37:00 [facility] BASIC METABOLIC PANEL 2019-03-17 12:36:00 Chucky Elkins [facility] (NA, K, CL, CO2, GLUCOSE, Medica l Branch BUN, CREATININE, CA) POCT GLUCOSE (AUTOMATED) 2019-03-17 00:33:00 Ednancy Angeliay [facility] [place] [facility] POCT GLUCOSE (AUTOMATED) 2019-03-16 21:30:00 Edionwe, [facility] [place] [facility] POCT GLUCOSE (AUTOMATED) 2019-03-16 16:25:00 Edionwe, [facility] [place] [facility] XR FOOT 3+ VW RIGHT 2019-03-16 15:46:29 Chucky Elkins [facility] POCT GLUCOSE (AUTOMATED) 2019-03-16 12:35:00 Edionwe [facility] [place] [facility] POCT GLUCOSE (AUTOMATED) 2019-03-16 00:28:00 Edionwe, [facility] [place] [facility] POCT GLUCOSE (AUTOMATED) 2019-03-15 21:50:00 Edionwe [facility] [place] [facility] POCT GLUCOSE (AUTOMATED) 2019-03-15 16:15:00 Edionwe, [facility] [place] [facility] POCT GLUCOSE (AUTOMATED) 2019-03-15 13:56:00 Edionwe, [facility] [place] [facility] POCT GLUCOSE (AUTOMATED) 2019-03-15 12:51:00 Edionwe, [facility] [place] [facility] POCT GLUCOSE (AUTOMATED) 2019-03-15 00:32:00 Edionwe, [facility] [place] [facility] POCT GLUCOSE (AUTOMATED) 2019-03-14 21:33:00 Edionwe, [facility] [place] [facility] POCT GLUCOSE (AUTOMATED) 2019-03-14 16:56:00 Edionwe, [facility] [place] [facility] POCT GLUCOSE (AUTOMATED) 2019-03-14 12:23:00 Edionwe, [facility] [place] [facility] XR CHEST 1 VW 2019-03-14 07:21:50 Hansel abbe Andrew o [facility] [place] [facility] POCT GLUCOSE (AUTOMATED) 2019-03-14 01:22:00 Ednancy [facility] [place] [facility] XR KNEE 3 VW LEFT 2019-03-13 23:04:42 Chucky Elkins [facility] POCT GLUCOSE (AUTOMATED) 2019-03-13 21:03:00 Edionwe, Taina [facility] POCT GLUCOSE (AUTOMATED) 2019-03-13 16:22:00 Edionwe, [facility] POCT GLUCOSE (AUTOMATED) 2019-03-13 12:25:00 Edionwe, Taina Uni [facility] BASIC METABOLIC PANEL 2019-03-13 09:57:00 Chucky Elkins [facility] (NA, K, CL, CO2, GLUCOSE, Medica l Branch BUN, CREATININE, CA) CBC WITH DIFFERENTIAL 2019-03-13 09:57:00 Chucky Elkins [facility] POCT GLUCOSE (AUTOMATED) 2019-03-13 01:34:00 Edionwe, Angeliay [facility] POCT GLUCOSE (AUTOMATED) 2019-03-12 20:57:00 Edionwe, Angeliay [facility] POCT GLUCOSE (AUTOMATED) 2019-03-12 16:27:00 Edionwe, [facility] POCT GLUCOSE (AUTOMATED) 2019-03-12 12:40:00 Edionwe, [employer] [facility] POCT GLUCOSE (AUTOMATED) 2019-03-12 02:01:00 Edionwe, [facility] POCT GLUCOSE (AUTOMATED) 2019-03-11 21:12:00 Edionwe, Angeliay [facility] POCT GLUCOSE (AUTOMATED) 2019-03-11 16:28:00 Edionwe, [facility] POCT GLUCOSE (AUTOMATED) 2019-03-11 12:31:00 Edionwe, [employer] [facility] BASIC METABOLIC PANEL 2019-03-11 10:46:00 Edionezra, [facility] (NA, K, CL, CO2, GLUCOSE, Medica l Branch BUN, CREATININE, CA) CBC WITH DIFFERENTIAL 2019-03-11 10:46:00 Edionwe, [facility] GLYCOSYLATED HEMOGLOBIN 2019-03-11 10:46:00 Edionezra, [facility] (A1C) [facility] POCT GLUCOSE (AUTOMATED) 2019-03-11 03:58:00 Taina Castro [facility] DIGOXIN 2019-03-11 01:25:00 Fariba Cantu [facility] XR CHEST 1 VW 2019-03-11 01:14:26 Fariba Cantu [facility] URINALYSIS 2019-03-11 00:51:00 Julita Gonzales [facility] URINE CULTURE 2019-03-11 00:51:00 Fariba Cantu [facility] BLOOD CULTURE SCREEN 2019-03-11 00:21:00 Fariba Cantu [facility] BLOOD CULTURE WORKUP 2019-03-11 00:21:00 Fariba Cantu [facility] GRAM NEGATIVE BLOOD 2019-03-11 00:21:00 Fariba Cantu [facility] PATHOGENS DNA [facility] PROBE-AEROBIC EKG-12 LEAD 2019-03-11 00:03:03 Fariba Cantu [facility] LIPASE 2019-03-11 00:01:00 Julita Gonzales [facility] TROPONIN I 2019-03-11 00:01:00 Julita Gonzales [facility] HEPATIC FUNCTION PANEL 2019-03-11 00:01:00 Julita Gonzales [facility] ([id number]) (ALB,T.PRO,BILI [facility] Branch T,BU/BC,ALT,AST,ALK PHOS) BASIC METABOLIC PANEL 2019-03-11 00:01:[address] [facility] (NA, K, CL, CO2, GLUCOSE, Medica l Branch BUN, CREATININE, CA) CBC WITH DIFFERENTIAL 2019-03-11 00:01:00 Julita Gonzales [facility] BLOOD CULTURE SCREEN 2019-03-11 00:00:00 Fariba Cantu [facility] BLOOD CULTURE WORKUP 2019-03-11 00:00:00 Fariba Cantu [facility] LACTIC ACID WHOLE BLOOD 2019-03-10 23:59:00 Fariba Cantu [facility] HOSPITAL ADM - MISC 2019-03-10 05:01:00 Doctor Unassigned, No [facility] [place] Name [facility] Cataract Surgery Complex [facility] Knee Arthroscopy/surgery [facility] Encounters Start End Encounter Admission Attending Care Care Encounter Source Date/Time Date/Time Type Type Clinicians Facility Department ID 2021-05-10 Emergency [facility] [id number] Univers 02:12:44 [facility] 2021-05-09 Emergency [facility] [id number] Univers 22:45:10 [facility] 2021-05-09 Emergency [facility] [id number] Univers 21:07:24 [facility] 2022-09-05 2022-09-05 Care Crystelle 2.16.840. 2.16.840.1. CL [id number] [facility] 19:00:00 19:30:00 [employer] Amina [id number] W[facility] Medical [id number] 2022-06-29 2022-06-29 CAV Autumn 2.16.840. 2.16.840.1. CLAC [id number] [facility] 17:30:00 18:30:00 [place] [id number] Medical [id number] [id number] 2022-06-08 2022-06-08 Outpatient PEDROSO_V DMG [facility] [id number] -2021 [facility] 00:00:00 00:00:00 1201 Medica l Group 2022-05-03 2022-05-03 Telephone Service/Gen [facility] [id number] Univers 00:00:00 00:00:00 surg, SPECIALTY [id number] ity of Surgery C CARE [id number] [place] CENTER AT [phone] Il yecenia ANGUIANO 203 Branch [place] 2022-04-24 2022-04-24 Transition PACO Salas 1.2.840.114 [id number] Univers 00:00:00 00:00:00 of Care Patty NGUYỄN [id number] it y of [place] [id number] [facility] [phone] [facility] 403 Branch 2022-04-18 2022-04-22 Outpatient X [facility] [id number] Univers 11:24:00 14:08:00 ELHAM michelle [facility] 2022-04-18 2022-04-22 Emergency Terell Mims Madeleine [facility] 1.2.840 .114 [id number] Univers 11:24:00 14:08:00 Elham Underwood [id number] ity [facility] [id number] [facility] [phone] [facility] 081 Branch 2022-01-20 2022-01-20 [place] [id number] [facility] 06:24:00 06:24:00 0715 Medica l Group 2021-12-14 2021-12-14 Emergency X [facility] ERT [id number] Univers 09:38:00 15:10:00 YURI ity [facility] 2021-12-14 2021-12-14 Emergency [facility] [id number] Univers 09:38:00 15:10:00 Yuri CROCKER [id number] i ty of [place] 4.2.7.2.686 [facility] [phone] [facility] 084 Branch 2021-10-24 2021-10-24 Orders Doctor CHILDRESS 1.2.840.114 [id number] Univers 00:00:00 00:00:00 Only Unassigned, LALIT [id number] ity of [place] [facility] 4.2.7.2.686 Maulik as [phone] [facility] [address] 2021-04-20 2021-04-20 Orders Doctor CHILDRESS 1.2.840.114 [id number] Univers 00:00:00 00:00:00 Only Unassigned, LALIT [id number] ity of [place] [facility] 4.2.7.2.686 Maulik as [phone] [facility] [address] 2021-04-06 2021-04-06 Emergency [facility] 1.2.145.924 [id number] Univers 08:17:00 12:44:00 [facility] [id number] [place] [phone] [facility] 014 Branch ([facility]) 2021-03-30 2021-03-30 Transition Paco Salas 1.2.840.114 [id number] Univers 00:00:00 00:00:00 of Care Patty Nguyễn [id number] it y of [place] [phone] [facility] 403 Branch 2021-03-23 2021-03-29 [facility] Yuri Dias [facility] 1.2.840.1 [id number] Univers 10:23:00 14:48:00 Encounter Jad Gavin [id number] it[place] of [place] [phone] [facility] 080 Branch 2021-03-18 2021-03-18 Transition Camryn Salasalexey 1.2.840.114 [id number] Univers 00:00:00 00:00:00 of Care Patty Nguyễn [id number] [place] [phone] [facility] 403 Branch 2021-03-16 2021-03-17 Hospital Andriy Pierson 1.2.840. 114 [id number] Univers 10:00:00 19:00:00 Encounter Gemma White [id number] ity of [facility] 4.2.7.2.686 Maulik as [phone] [facility] 093 Branch 2021-03-15 2021-03-15 FIOR Brown 1.2.845.904 [id number] Univers 00:00:00 00:00:00 Acacia COHN [id number] i ty of [facility] 4.2.7.2.686 Maulik as [phone] [facility] 019 Branch 2021-03-15 2021-03-15 Letter FIOR Chavez 1.2.840.114 [id number] Univers 00:00:00 00:00:00 (Out) Acacia COHN [id number] i ty of HOSPITAL 4.2.7.2.686 Maulik as [phone] [facility] 019 Branch 2021-03-14 2021-03-14 Laboratory Only, Ang Db Test [facility] 1.2.8 40.114 [id number] Univers 17:45:12 18:00:12 Only Angeles [facility] [id number] ity of [place] 4.2.7.2.686 Maulik as Andreas?Blea [phone] Il dical kney [address] [facility] 2021-03-14 2021-03-14 Outpatient R ANGELES [facility] [id number] Univers 18:00:00 18:00:00 PHILLIP imchelle o f [facility] 2021-01-22 2021-01-22 Sales Consultant Residential Manager Florinda, Adc Lab Main [facility] 1.2.8 40.114 [id number] Univers 10:14:09 10:29:09 Visit Lindsey Olson [id number] it[place] of [place] Profess[place] [phone] Il dical [facility] 353 Branch Building 2021-01-22 2021-01-22 Outpatient Blake OLSON [facility] [id number] Univers 10:15:00 10:15:00 LINDSEY [facility] 2021-01-22 2021-01-22 Orders Doctor CHILDRESS 1.2.840.114 [id number] Univers 00:00:00 00:00:00 Only Unassigned, LALIT [id number] ity of [place] [facility] 4.2.7.2.686 Maulik as [phone] [facility] [address] 2020-12-29 2020-12-29 Outpatient Glo MOJICA VFP [id number] [facility] 11:46:00 11:46:00 _A_ [id number] Family Practic e 2020-10-18 2020-10-18 Outpatient Blake MCGILL [facility] [id number] Univers 15:30:00 15:30:00 JENNIFER ity [facility] 2020-09-27 2020-09-27 Outpatient R NANO, [facility] [id number] Univers 15:20:00 15:20:00 JENNIFER ity [facility] 2020-09-10 2020-09-10 Sales Consultant Residential Manager Florinda, Marino Lab Main [facility] 1.2.8 40.114 [id number] Univers 15:12:10 15:27:10 Visit Lindsey Olson 350.1.13.10 it[place] of [place].2.7.2.[place] Vu[place] [phone] Il dical nal 353 [facility] 2020-09-10 2020-09-10 Outpatient R WESLEY [facility] [id number] Univers 14:30:00 14:30:00 LINDSEY ity [facility] 2020-09-10 2020-09-10 Orders Doctor FIOR 1.2.840.114 [id number] Univers 00:00:00 00:00:00 Only Unassigned, LALIT [id number] ity of [place] [facility] 4.2.7.2.686 Maulik as [phone] [address] 2020-07-31 2020-07-31 Patient Alphonso [facility] 1.2.840.114 [id number] Univers 00:00:00 00:00:00 Outreach Felix [facility] [id number] i ty of [facility] 4.2.7.2.686 [place] DANNA [phone] Il dical [address] [place] [address] 2020-05-31 2020-05-[address] [facility] [phone] [facility] 09:07:00 09:07:00 _A_AH 02169 Family Practic e 2020-05-21 2020-05-21 Zully [facility] [place] - [id number] [facility] 00:00:00 00:00:00 [facility] [address] [facility] tash macias, AVIATION MANAGER: Medical - Practi ana 9235 Isabelle VM_[email or web address]_ e [facility], [address] [address], [place] [address] , Ph. 2020-05-04 2020-05-04 Hospital Unknown, [facility] [id number] Univers 12:42:13 23:59:00 Encounter Attending Maximo 350.1.13.10 Yamila 4.2.7.2.686 [facility] [phone] [address] 2020-05-04 2020-05-04 Outpatient R [facility] [id number] Univers 00:00:00 00:00:00 [facility] 2020-04-12 2020-04-12 Outpatient Skinny-Mbayo VFP VFP [phone] [facility] 01:39:00 01:39:00 _A_AH 42090 Family Practic e 2020-04-05 2020-04-05 Outpatient R CHERYL [facility] [id number] Univers 13:45:00 13:45:00 JAIDEN [facility] 2020-03-26 2020-03-26 Outpatient Skinny-Mbayo VFP VFP [id number] [facility] 09:11:00 09:11:00 _A_AH 51684 Family Practic e 2020-03-22 2020-03-22 Zully VFP [facility] [id number] [facility] 00:00:00 00:00:00 [facility] [address] Zac macias AVIATION MANAGER: Beverley [email or web address] e [facility], [address] [address], [place] [address] , Ph. 2020-03-05 2020-03-05 Outpatient Skinny-Mbayo VFP VFP [id number] [facility] 08:03:00 08:03:00 _A_AH 93414 Family Practic e 2020-02-25 2020-02-25 Outpatient Skinny-Mbayo VFP VFP [id number] [facility] 10:26:00 10:26:00 _A_AH 45690 Family Practic e 2020-02-18 2020-02-18 Zully VFP [facility] [id number] [facility] 00:00:00 00:00:00 [facility] [address] Zac macias AVIATION MANAGER: Beverley [email or web address]_ e [facility], [address] [address], [place] [address] , Ph. 2020-01-06 2020-01-06 Outpatient Skinny-Mbayo VFP VFP [address] 06:59:00 06:59:00 _A_AH 72236 Family Practic e 2020-01-05 2020-01-05 Outpatient Skinny-Mbayo VFP VFP [address] 11:05:00 11:05:00 _A_AH 96305 Family Practic e 2019-12-23 2019-12-23 Outpatient Skinny-Mbayo VFP VFP [address] 09:02:00 09:02:00 _A_AH 71601 Family Practic e 2019-12-18 2019-12-18 Zully VFP [place] - [phone] [facility] 00:00:00 00:00:00 Skinny-Mbay [facility] [address] [facility] tash macias AVIATION MANAGER: Medical - Practi c 9235 Isabelle [email or web address]_[email or web address]_V@ e [facility], [address] [address], [place] [address] , Ph. 2019-08-27 2019-08-27 Outpatient Skinny-Mbayo VFP VFP [address] 07:12:00 07:12:00 _A_AH 57495 Family Practic e 2019-08-14 2019-08-14 Office Fabrice Ray [facility] [id number] Univers 10:41:59 10:56:59 Visit Jaiden Luna [facility] 350.1.13.10 ity of Surgical 4.2.7.2.686 Maulik as Specialti [phone] Il dical es 198 [facility] 2019-08-11 2019-08-11 [facility] 1.2.840.114 [id number] Univers 11:30:00 23:59:00 Encounter Jaiden [place] 350.1.13.10 [place] [phone] [facility] [address] 2019-08-05 2019-08-05 Telephone Cheryl [facility] [id number] Univers 00:00:00 00:00:00 Jaiden David [facility] 350.1.13.10 it y of Surgical 4.2.7.2.686 Maulik as Specialti [id number] Il dical 198 [facility] 2019-07-31 2019-07-31 Orders Doctor FIOR 1.2.840.114 [id number] Univers 00:00:00 00:00:00 Only Unassigned, LALIT 350.1.13.10 ity of [place] [facility] 4.2.7.2.686 Maulik as [phone] [address] 2019-07-03 2019-07-03 Orders Doctor FIOR 1.2.840.114 [id number] Univers 00:00:00 00:00:00 Only Unassigned, LALIT 350.1.13.10 ity of [place] [facility] 4.2.7.2.686 Maulik as [phone] [address] 2019-06-22 2019-06-22 Emergency X CHRISTIAN [facility] ERT [id number] Univers 09:39:07 12:04:00 JULITA ity of [facility] 2019-03-19 2019-03-19 Transition Camryn Perezalexey 1.2.840.114 [id number] Univers 00:00:00 00:00:00 of Care Kayleen Nguyễn 350.1.13.10 it y [place] [phone] [facility] [address] 2019-03-10 2019-03-18 [facility] Fariba Cantu [facility] 1.2.840.1 [id number] Univers 18:29:13 16:20:00 Encounter Taina Castro [place] 350.1.13.10 ity [place] [phone] [id number] [place] Results Test Description Test Time Test Comments Results Result Comments Source POCT GLUCOSE (AUTOMATED) 2022-04-22 16:39:38 Test Item Value Reference Range Interpretation Comme nts POCT GLU (test code = 1010901552) 110 mg/dL 70-110 Lab Interpretation (test code = 21687-0) [facility]2022-[facility]-22 16:36:56 Test Item Value Reference Range Interpretation Comments POCT GLU (test code = 6342601374) 152 mg/dL 70-110 H Lab Interpretation (test code = Abnormal 93628-3) [facility] WITH [id number] 10:33:08 Test Item Value Reference Range Interpretation Comments WBC (test code = See_Comment [Automated 6690-2) message] The sy stem which generated this result transmitted reference range : 4.30 - 11.10 10*3/?L. The reference range was not used to interpret this result as normal/abnormal . RBC (test code = See_Comment L [Automated 789-8) message] The sy stem which generated this result transmitted reference range : 3.93 - 5.25 10*6/?L. The reference range was not used to interpret this result as normal/abnormal . HGB (test code = 8.3 g/dL 11.6-15 L 718-7) HCT (test code = 26.9 % 35.7-45.2 L 4544-3) MCV (test code = 69.9 fL 80.6-95.5 L 787-2) MCH (test code = 21.6 pg 25.9-32.8 L 785-6) MCHC (test code = 30.9 g/dL 31.6-35.1 L 786-4) RDW-SD (test code = 51.2 fL 39-49.9 H 53196-0) RDW-CV (test code = 20.8 % 12-15.5 H 788-0) PLT (test code = See_Comment [Automated 777-3) message] The sy stem which generated this result transmitted reference range : 166 - 358 10*3/ ?L. The reference r ilan was not used to interpret this result as normal/abnormal . MPV (test code = 12.0 fL 9.5-12.9 45262-5) IPF % (test code = 8.2 % 1.3-7.7 H Platelet count 3111480847) measured by fluorescence method. NRBC/100 WBC (test See_Comment [Automat ed code = 1105987170) message] The system which generated this result transmitted reference range : 0.0 - 10.0 /100 WBCs. The refer ence range was not u sed to interpret th is result as normal/abnormal . NRBC x10^3 (test code See_Comment [Auto mated = 6004047831) message] The s ystem which generated this result transmitted reference range : 10*3/?L. The reference range was not used to interpret this result as normal/abnormal . GRAN MAT (NEUT) % 68.6 % (test code = 770-8) IMM GRAN % (test code 0.40 % = 2370766502) LYMPH % (test code = 11.8 % 736-9) MONO % (test code = 13.2 % 5905-5) EOS % (test code = 5.3 % 713-8) BASO % (test code = 0.7 % 706-2) GRAN MAT x10^3(ANC) 3.13 10*3/uL 1.88-7.09 (test code = 1357497172) IMM GRAN x10^3 (test 0-0.06 code = 2946604506) LYMPH x10^3 (test code 0.54 10*3/uL 1.32-3.29 L = 731-0) MONO x10^3 (test code 0.60 10*3/uL 0.33-0.92 = 742-7) EOS x10^3 (test code = 0.24 10*3/uL 0.03-0.39 711-2) BASO x10^3 (test code 0.03 10*3/uL 0.01-0.07 = 704-7) Lab Interpretation Abnormal (test code = 09553-4) [facility] Packed RBC (in units), 1 Units 2022-04-22 02:57:42 Test Item Value Reference Range Interpretation Comments Cross Match Result Compatible (test code = 4409) ISBT Blood Type Code (test code = 662536) Unit Blood Type (test A Pos code = 4410) Unit Number (test [id number] code = 4411) Blood Expiration Date & Time (test code = 738515) Status Information Issued (test code = 4412) Product Red Blood Cells Identification (test code = 4413) Product Code (test Q2121S67 Performed at [facility] code = 4414) Laboratory Services - [facility] Blood [address] [place] [address]Econ Free: [phone] A No. [id number] [facility] GLUCOSE (AUTOMATED)2022-04-22 02:16:46 Test Item Value Reference Range Interpretation Comments POCT GLU (test code = 4851113736) 167 mg/dL 70-110 H Lab Interpretation (test code = Abnormal 13702-8) [facility] GLUCOSE (AUTOMATED)2022-04-22 02:16:41 Test Item Value Reference Range Interpretation Comments POCT GLU (test code = 1667953902) 195 mg/dL 70-110 H Lab Interpretation (test code = Abnormal 95930-9) [facility] - ONCE [id number] 21:37:38 Test Item Value Reference Range Interpretation Comments ABO & RH (test code A Positive Performe d at [facility] = 20) Laboratory Serv [facility] Blood Bank[address] [place], [place] [address]Toll Free: [phone] A No. [id number] IAT (test code = Negative Performed a t [facility] 1185) Laboratory Serv [facility] Blood Bank[address] [place], [place] [address]Toll Free: [phone] A No. [id number] [facility] GLUCOSE (AUTOMATED)2022-04-21 16:42:01 Test Item Value Reference Range Interpretation Comments POCT GLU (test code = 1601283313) 146 mg/dL 70-110 H Lab Interpretation (test code = Abnormal 12284-7) [facility] GLUCOSE (AUTOMATED)2022-04-21 16:41:56 Test Item Value Reference Range Interpretation Comments POCT GLU (test code = 9239416806) 107 mg/dL 70-110 Lab Interpretation (test code = Normal 43004-5) [facility] GLUCOSE (AUTOMATED)2022-04-21 02:21:58 Test Item Value Reference Range Interpretation Comments POCT GLU (test code = 7477308201) 115 mg/dL 70-110 H Lab Interpretation (test code = Abnormal 15495-6) [facility] GLUCOSE (AUTOMATED)2022-04-20 22:17:55 Test Item Value Reference Range Interpretation Comments POCT GLU (test code = 9019837934) 122 mg/dL 70-110 H Lab Interpretation (test code = Abnormal 63688-3) [facility] GLUCOSE (AUTOMATED)2022-04-20 22:17:50 Test Item Value Reference Range Interpretation Comments POCT GLU (test code = 5737856964) 154 mg/dL 70-110 H Lab Interpretation (test code = Abnormal 34557-3) [facility] GLUCOSE (AUTOMATED)2022-04-20 13:15:52 Test Item Value Reference Range Interpretation Comments POCT GLU (test code = 6074798983) 118 mg/dL 70-110 H Lab Interpretation (test code = Abnormal 69712-4) [facility] ONCE [id number] 11:35:54 Test Item Value Reference Range Interpretation Comments ABO & RH (test code A Positive Performe d at [facility] = 20) Laboratory Serv [facility] Blood Bank[address] [place], [place] [address]Toll Free: [phone] A No. [id number] IAT (test code = Negative Performed a t [facility] 1185) Laboratory Serv [facility] Blood Bank[address] [place], [place] [address]Toll Free: [phone] A No. [id number] [facility] GLUCOSE (AUTOMATED)2022-04-20 01:10:35 Test Item Value Reference Range Interpretation Comments POCT GLU (test code = 5746786326) 146 mg/dL 70-110 H Lab Interpretation (test code = Abnormal 47338-9) [facility] GLUCOSE (AUTOMATED)2022-04-19 21:54:58 Test Item Value Reference Range Interpretation Comments POCT GLU (test code = 1496354736) 192 mg/dL 70-110 H Lab Interpretation (test code = Abnormal 21654-5) [facility] Center[facility]IT[facility]IN B12, [id number] 20:25:58 Test Item Value Reference Range Interpretation Comments VIT B12 (test code = 411 pg/mL 240-930 1415070976) KENA (test code = KENA) Biotin has been reported to cause a positive bias, interpret results relative to patient's use of biotin. Lab Interpretation (test Normal code = 19705-2) [facility]2022-04-19 17:09:26 Test Item Value Reference Range Interpretation Comments POCT GLU (test code = 1026405431) 185 mg/dL 70-110 H Lab Interpretation (test code = Abnormal 37713-4) [facility] Center[facility]an[facility] echo (TTE)2022-04-19 17:03:35 Test Item Value Reference Range Interpretation Comments Height (test code = in 6988846538) Weight (test code = lbs 2944669443) Systolic BP (test code = mmHg 2697144630) Diastolic BP (test code mmHg = 3865562377) Heart Rate (test code = bpm 4609513361) BSA (test code = 1.98 m2 3116956921) Ao root diam (test code 3.30 cm = 2177515407) Aortic root (test code = 3.3 cm 8157668770) Ao root annulus (test 3.3 cm code = 6875333134) LVOT diameter (test code 1.93 cm = 4618616158) LVOT area (test code = 2.90 cm2 0695852268) LVIDD (test code = 4.90 cm 0326518326) Left Ventricular End 111.4 mL Diastolic Volume by Teichholz Method (test code = 6504448) IVS (test code = 1.21 cm 9237665581) Interventricular Septum 1.21 cm Diastolic Thickness by 2D (test code = 7687132) LVPWD (test code = 1.21 cm 1987440769) PW (test code = 1.21 cm 0.6-1.3 0198034665) EF(Teich) (test code = 65.10 % 8950905679) LVIDS (test code = 3.10 cm 1967026177) Left Ventricular End 38.9 mL Systolic Volume by Teichholz Method (test code = 8537783) FS (test code = 36 % 5627463858) EF - 2D (test code = 65.10 % 62602596) LA size (test code = 5.3 cm 0373102449) TR Peak Adrienne (test code = 304.6 cm/s 4970265107) Triscuspid Valve mmHg Regurgitation Peak Gradient (test code = 6584678826) Pulmonic Regurgitant End 114.3 cm/s Max Velocity (test code = 7887110667) LAV(MOD-sp4) (test code 178.50 mL = 1590576418) E wave decelartion time 0.20 s (test code = 1010212913) MV stenosis pressure 1/2 61.0 ms time (test code = 7546990263) MV Peak E Adrienne (test code 131.4 cm/s = 1655712504) MV Prop V (test code = 49.20 cm/s 0859929186) MV E/e' septal (test 10.5 cm/s code = 2306642759) Tapse (test code = 1.76 cm 3432788354) LVOT stroke volume (test 46.30 cm3 code = 2662614300) LVOT peak adrienne (test code 82.3 cm/s = 3834763048) LVOT mn grad (test code mmHg = 3290308655) AV LVOT peak gradient mmHg (test code = 9897722666) LVOT peak VTI (test code 15.8 cm = 4756858655) LV V1 mean (test code = 57.00 cm/s 9108528966) Aortic valve mean 121.5 cm/s velocity (test code = 6556643516) Ao peak adrienne (test code = 171.2 cm/s 2680970774) Ao VTI (test code = 35.4 cm 5684458121) AV area by cont VTI 1.3 cm2 (test code = 6999610648) AV area peak adrienne (test 1.4 cm2 code = 5004620473) Ao max PG (test code = 11.70 mm[Hg] 8100125576) AV peak gradient (test mmHg code = 9055522514) AV valve area (test code 1.31 cm2 = 2028371109) AV mean gradient (test mmHg code = 4918445747) Radiology Study observation (narrative) (test code = 11009-3) KENA (test code = KENA) ?Left?Ventricle: Left ventricle size is normal. Normal wall thickness. Normal wall motion. Low normal systolic function with a visually estimated EF of 50 - 55%. Unable to assess diastolic function due to arrhythmia. ?Tricuspid?Valve: Right ventricular systolic pressure is 40-45 mmHg. ?RA pressure is 10-15 mmHg. ?Left?Atrium: Left atrium is severely dilated. ?Right?Ventricle: Right ventricle is mildly dilated. Mildly reduced systolic function. ?Right?Atrium: Right atrium is severely dilated. Left VentricleLeft ventricle size is normal. Normal wall thickness. Normal wall motion. Low normal systolic function with a visually estimated EF of 50 - 55%. Unable to assess diastolic function due to arrhythmia.Right VentricleRight ventricle is mildly dilated. Mildly reduced systolic function.Left AtriumLeft atrium is severely dilated.Right AtriumRight atrium is severely dilated.Mitral ValveMildly thickened leaflets. Mildly calcified leaflets. Moderate mitral annular calcification. Mildly calcified subvalvular apparatus. Trace transvalvular regurgitation. No stenosis.Tricuspid ValveTricuspid valve structure is normal. Mild to moderate transvalvular regurgitation. Right ventricular systolic pressure is 40-45 mmHg. RA pressure is 10-15 mmHg.Aortic ValveTricuspid.Pulmon ic ValvePulmonic valve is normal in structure and function. Mild transvalvular regurgitation.Ascendi ng AortaNormal sized aorta.PericardiumThe pericardium is normal.Study DetailsStudy quality was adequate. A complete echocardiogram was performed using 2D, color flow Doppler and spectral Doppler. [facility]2022-[facility] 16:46:42 Test Item Value Reference Range Interpretation Comments FOLATE SER (test code = 19.5 ng/mL 3-20 Biot in has been 1990241843) reported to cau se a positive bias, interpret resul ts relative to patient's use o f biotin. Lab Interpretation (test Normal code = 95950-1) [facility] CenterRETICULOCYTES [id number] 14:21:28 Test Item Value Reference Range Interpretation Comments RETIC Count Automated 1.41 % 0.51-1.9 (test code = 1933227086) RETIC Absolute Count See_Comment [Autom ated message] (test code = 6164093015) The system which generated this result transmitted ref erence range: 0.0230 - 0.0950 10*6/?L. The reference range was not used to int erpret this result as normal/abnormal . IRF % (test code = 29.20 % 2.1-12.6 H 6910708092) RETIC-HE (test code = 17.9 pg 28.1-35.8 L 7236848079) Lab Interpretation (test Abnormal code = 40418-3) [facility] CenterTR[facility] [id number] 14:01:20 Test Item Value Reference Interpretation Comments Range TROPONIN I (test 0.005 ng/mL See_Comment [Automated code = 9292758498) message] The system which generated this result [...] biotin. Lab Interpretation Normal (test code = 04475-0) [facility] CenterPhosphorus [id number] 13:52:40 Test Item Value Reference Range Interpretation Comments PHOSPHORUS (test code = 6094926536) 4.4 mg/dL 2.5-5 Lab Interpretation (test code = Normal 67272-7) [facility] GLUCOSE (AUTOMATED)2022-04-19 12:45:21 Test Item Value Reference Range Interpretation Comments POCT GLU (test code = 8736056942) 109 mg/dL 70-110 Lab Interpretation (test code = Normal 45246-3) [facility] GLUCOSE (AUTOMATED)2022-04-19 01:50:37 Test Item Value Reference Range Interpretation Comments POCT GLU (test code = 2757492792) 110 mg/dL 70-110 Lab Interpretation (test code = Normal 20602-0) [facility] CenterTROPONIN [id number] 15:25:14 Test Item Value Reference Interpretation Comments Range TROPONIN I (test 0.004 ng/mL See_Comment [Automated code = 4752774869) message] The system which generated this result [...] biotin. Lab Interpretation Normal (test code = 63672-2) [facility]. METABOLIC PANEL (73335)2021-12-14 15:13:58 Test Item Value Reference Range Interpretation Comments NA (test code = 137 mmol/L 135-145 1961125222) K (test code = 4.4 mmol/L 3.5-5.0 4081390676) CL (test code = 101 mmol/L 98-108 1414975369) CO2 TOTAL (test code = 29 mmol/L 23-31 3390736462) AGAP (test code = 2-16 4996894857) BUN (test code = 19 mg/dL 7-23 9990158111) GLUCOSE (test code = 170 mg/dL 70-110 H 2502241481) CREATININE (test code = 0.70 mg/dL 0.50-1.04 9042904973) TOTAL BILI (test code = 0.5 mg/dL 0.1-1.0 4781403522) CALCIUM (test code = 8.9 mg/dL 8.6-10.6 8841315600) T PROTEIN (test code = 5.7 g/dL 6.3-8.2 L 5252844766) ALBUMIN (test code = 3.4 g/dL 3.5-5.0 L 2275598840) ALK PHOS (test code = 119 U/L 34-122 6163837931) ALTv (test code = 16 U/L 5-35 1742-6) AST(SGOT) (test code = 21 U/L 13-40 2578579190) eGFR (test code = mL/min/1.73m2 9506294297) KENA (test code = KENA) Association of [...] tests). Lab Interpretation Abnormal (test code = 15349-5) [facility] WITH [id number] 15:04:14 Test Item Value Reference Range Interpretation Comments WBC (test code = See_Comment [Automated 7629-2) message] The sy stem which generated this result transmitted reference range : 4.30 - 11.10 10*3/?L. The reference range was not used to interpret this result as normal/abnormal . RBC (test code = See_Comment [Automated 986-8) message] The sy stem which generated this result transmitted reference range : 3.93 - 5.25 10*6/?L. The reference range was not used to interpret this result as normal/abnormal . HGB (test code = 10.3 g/dL 11.6-15.0 L 718-7) HCT (test code = 34.5 % 35.7-45.2 L 4544-3) MCV (test code = 81.6 fL 80.6-95.5 787-2) MCH (test code = 24.3 pg 25.9-32.8 L 785-6) MCHC (test code = 29.9 g/dL 31.6-35.1 L 786-4) RDW-SD (test code = 77.8 fL 39.0-49.9 H 34933-7) RDW-CV (test code = 27.1 % 12.0-15.5 H 788-0) PLT (test code = See_Comment [Automated 777-3) message] The sy stem which generated this result transmitted reference range : 166 - 358 10*3/ ?L. The reference r ilan was not used to interpret this result as normal/abnormal . MPV (test code = 10.8 fL 9.5-12.9 02787-3) NRBC/100 WBC (test See_Comment [Automat ed code = 1646691832) message] The system which generated this result transmitted reference range : 0.0 - 10.0 /100 WBCs. The refer ence range was not u sed to interpret th is result as normal/abnormal . NRBC x10^3 (test code <0.01 See_Comment [Auto mated = 9779262187) message] The s ystem which generated this result transmitted reference range : 10*3/?L. The reference range was not used to interpret this result as normal/abnormal . GRAN MAT (NEUT) % 77.4 % (test code = 770-8) IMM GRAN % (test code 0.70 % = 2676619790) LYMPH % (test code = 9.4 % 736-9) MONO % (test code = 8.8 % 5905-5) EOS % (test code = 3.2 % 713-8) BASO % (test code = 0.5 % 706-2) GRAN MAT x10^3(ANC) 4.28 10*3/uL 1.88-7.09 (test code = 8813163090) IMM GRAN x10^3 (test 0.04 10*3/uL 0.00-0.06 code = 5930165644) LYMPH x10^3 (test code 0.52 10*3/uL 1.32-3.29 L = 731-0) MONO x10^3 (test code 0.49 10*3/uL 0.33-0.92 = 742-7) EOS x10^3 (test code = 0.18 10*3/uL 0.03-0.39 711-2) BASO x10^3 (test code 0.03 10*3/uL 0.01-0.07 = 704-7) Lab Interpretation Abnormal (test code = 33233-0) [facility] - ONCE [id number] 14:01:27 Test Item Value Reference Range Interpretation Comments ABO & RH (test code A Positive Performe d at [facility] = 20) [facility] [employer] Blood [facility] [place], [place] [address]Toll Free: [phone] 266CLIA No. [id number] IAT (test code = Negative Performed a t [facility] 1185) Laboratory Serv [employer] Blood [facility] [place], [place] [address]Toll Free: [phone] 266CLIA No. [id number] [facility] CenterPROTHROMBIN TIME / [id number] 13:58:55 Test Item Value Reference Range Interpretation Comments PROTIME PATIENT (test See_Comment H [Auto mated message] code = 5964-2) The system [employer] generated this result transmitted ref erence range: 10.1 - 1 2.6 Seconds. The reference range was not used to int erpret this result as normal/abnormal . INR (test code = 6301-6) Nor mal INR <1.1; Warfarin Therap eutic range 2.0 to 3. 0 or 2.5 to 3.5, dep ending upon the indica tions. Lab Interpretation (test Abnormal code = 84249-8) [facility] CenterCOMP. METABOLIC PANEL (13671)2021-04-06 13:30:35 Test Item Value Reference Range Interpretation Comments NA (test code = 132 mmol/L 135-145 L 5890301021) K (test code = 5.0 mmol/L 3.5-5.0 1321416825) CL (test code = 92 mmol/L 98-108 L 4164283353) CO2 TOTAL (test code = 33 mmol/L 23-31 H 5206957064) AGAP (test code = 2-16 7153618044) BUN (test code = 29 mg/dL 7-23 H 5311060329) GLUCOSE (test code = 156 mg/dL 70-110 H 5418176215) CREATININE (test code = 0.69 mg/dL 0.50-1.04 7500819399) TOTAL BILI (test code = 0.6 mg/dL 0.1-1.3 8742090606) CALCIUM (test code = 9.2 mg/dL 8.6-10.6 7982195227) T PROTEIN (test code = 6.8 g/dL 6.3-8.2 0468591850) ALBUMIN (test code = 3.8 g/dL 3.5-5.0 3449791226) ALK PHOS (test code = 120 U/L 34-122 9822981372) ALTv (test code = 19 U/L 5-35 1742-6) AST(SGOT) (test code = 23 U/L 13-40 8512671925) eGFR (test code = mL/min/1.73m2 6403769087) KENA (test code = KENA) Association of [...] tests). Lab Interpretation Abnormal (test code = 16157-4) [facility] WITH [id number] 13:21:51 Test Item Value Reference Range Interpretation Comments WBC (test code = See_Comment [Automated 7090-2) message] The sy stem which generated this [...] RDW-SD (test code = 45.9 fL 39.0-49.9 51343-2) RDW-CV (test code = 14.7 % 12.0-15.5 788-0) PLT (test code = See_Comment [Automated 777-3) message] The sy stem which generated this result transmitted reference range : 166 - 358 10*3/ ?L. The reference r ilan was not used to interpret this result as normal/abnormal . MPV (test code = 10.8 fL 9.5-12.9 70100-2) NRBC/100 WBC (test See_Comment [Automat ed code = 7676944341) message] The system which generated this result transmitted reference range : 0.0 - 10.0 /100 WBCs. The refer ence range was not u sed to interpret th is result as normal/abnormal . NRBC x10^3 (test code <0.01 See_Comment [Auto mated = 4110552732) message] The s ystem which generated this result transmitted reference range : 10*3/?L. The reference range was not used to interpret this result as normal/abnormal . GRAN MAT (NEUT) % 60.7 % (test code = 770-8) IMM GRAN % (test code 1.00 % = 4995725585) LYMPH % (test code = 11.8 % 736-9) MONO % (test code = 11.2 % 5905-5) EOS % (test code = 14.9 % 713-8) BASO % (test code = 0.4 % 706-2) GRAN MAT x10^3(ANC) 3.09 10*3/uL 1.88-7.09 (test code = 4883236382) IMM GRAN x10^3 (test 0.05 10*3/uL 0.00-0.06 code = 6757061010) LYMPH x10^3 (test code 0.60 10*3/uL 1.32-3.29 L = 731-0) MONO x10^3 (test code 0.57 10*3/uL 0.33-0.92 = 742-7) EOS x10^3 (test code = 0.76 10*3/uL 0.03-0.39 H 711-2) BASO x10^3 (test code <0.03 0.01-0.07 = 704-7) Lab Interpretation Abnormal (test code = 36834-3) [facility] GLUCOSE (AUTOMATED)2021-03-29 17:01:45 Test Item Value Reference Range Interpretation Comments POCT GLU (test code = 0938667106) 199 mg/dL 70-110 H Lab Interpretation (test code = Abnormal 99941-3) [facility] GLUCOSE (AUTOMATED)2021-03-29 17:01:45 Test Item Value Reference Range Interpretation Comments POCT GLU (test code = 8034461545) 199 mg/dL 70-110 H Lab Interpretation (test code = Abnormal 76501-9) [facility] [id number] 15:24:42 Test Item Value Reference Range Interpretation Comments OSMOLALITY (test code = See_Comment [Au tomated message] 8860082714) The system [employer] generated this result transmitted ref erence range: 278 - 30 5 mOsm/kg. The re ference range was not u sed to interpret this result as normal/abnor mal. Lab Interpretation (test Normal code = 92174-0) [facility] [id number] 15:24:42 Test Item Value Reference Range Interpretation Comments OSMOLALITY (test code = See_Comment [Au tomated message] 3370591577) The system [employer] generated this result transmitted ref erence range: 278 - 30 5 mOsm/kg. The re ference range was not u sed to interpret this result as normal/abnor mal. Lab Interpretation (test Normal code = 86813-8) [facility] GLUCOSE (AUTOMATED)2021-03-29 13:38:41 Test Item Value Reference Range Interpretation Comments POCT GLU (test code = 7361090814) 170 mg/dL 70-110 H Lab Interpretation (test code = Abnormal 94484-8) [facility] GLUCOSE (AUTOMATED)2021-03-29 13:38:41 Test Item Value Reference Range Interpretation Comments POCT GLU (test code = 6259201775) 170 mg/dL 70-110 H Lab Interpretation (test code = Abnormal 76987-1) [facility]2021-09-21 11:20:57 Test Item Value Reference Range Interpretation Comments MAGNESIUM (test code = 3219666268) 1.5 mg/dL 1.7-2.4 L Lab Interpretation (test code = Abnormal 52320-3) [facility]2021-09-21 11:20:57 Test Item Value Reference Range Interpretation Comments MAGNESIUM (test code = 4573022593) 1.5 mg/dL 1.7-2.4 L Lab Interpretation (test code = Abnormal 21349-7) [facility]. METABOLIC PANEL ([id number])2021-03-29 11:20:42 Test Item Value Reference Range Interpretation Comments NA (test code = 131 mmol/L 135-145 L 5890506928) K (test code = 4.2 mmol/L 3.5-5.0 0327577795) CL (test code = 95 mmol/L 98-108 L 1480491096) CO2 TOTAL (test code = 29 mmol/L 23-31 7588898807) AGAP (test code = 2-16 0003504195) BUN (test code = 21 mg/dL 7-23 6596224632) GLUCOSE (test code = 200 mg/dL 70-110 H 4614270568) CREATININE (test code = 0.79 mg/dL 0.50-1.04 9147951694) TOTAL BILI (test code = 0.5 mg/dL 0.1-1.2 4456610513) CALCIUM (test code = 8.6 mg/dL 8.6-10.6 3403315346) T PROTEIN (test code = 6.2 g/dL 6.3-8.2 L 5733906505) ALBUMIN (test code = 3.1 g/dL 3.5-5.0 L 4232868596) ALK PHOS (test code = 112 U/L 34-122 4755779208) ALTv (test code = 14 U/L 5-35 1742-6) AST(SGOT) (test code = 17 U/L 13-40 7601786358) eGFR (test code = mL/min/1.73m2 7315868699) KENA (test code = KENA) Association of [...] tests). Lab Interpretation Abnormal (test code = 25482-8) [facility] Test Item Value Reference Range Interpretation Comments PHOSPHORUS (test code = 2481208546) 3.6 mg/dL 2.5-5.0 Lab Interpretation (test code = Normal 05066-6) [facility] (16058[facility]2021-03-29 11:20:42 Test Item Value Reference Range Interpretation Comments NA (test code = 131 mmol/L 135-145 L 0908259183) K (test code = 4.2 mmol/L 3.5-5.0 5792467648) CL (test code = 95 mmol/L 98-108 L 1446917786) CO2 TOTAL (test code = 29 mmol/L 23-31 2087197918) AGAP (test code = 2-16 9317470785) BUN (test code = 21 mg/dL 7-23 8279757124) GLUCOSE (test code = 200 mg/dL 70-110 H 5591105690) CREATININE (test code = 0.79 mg/dL 0.50-1.04 6019280151) TOTAL BILI (test code = 0.5 mg/dL 0.1-1.7 8481724874) CALCIUM (test code = 8.6 mg/dL 8.6-10.6 6681817440) T PROTEIN (test code = 6.2 g/dL 6.3-8.2 L 5119547338) ALBUMIN (test code = 3.1 g/dL 3.5-5.0 L 9258619049) ALK PHOS (test code = 112 U/L 34-122 4053268080) ALTv (test code = 14 U/L 5-35 1742-6) AST(SGOT) (test code = 17 U/L 13-40 4031242409) eGFR (test code = mL/min/1.73m2 3127162669) KENA (test code = KENA) Association of [...] tests). Lab Interpretation Abnormal (test code = 09919-7) [facility]20:42 Test Item Value Reference Range Interpretation Comments PHOSPHORUS (test code = 0342838717) 3.6 mg/dL 2.5-5.0 Lab Interpretation (test code = Normal 80964-8) [id number] 11:20:41 Test Item Value Reference Range Interpretation Comments URIC ACID (test code = 6451702095) 3.6 mg/dL 2.9-6.0 Lab Interpretation (test code = Normal 31427-2) [facility] [id number] 11:20:41 Test Item Value Reference Range Interpretation Comments URIC ACID (test code = 2259817982) 3.6 mg/dL 2.9-6.0 Lab Interpretation (test code = Normal 90173-5) [facility] GLUCOSE (AUTOMATED)2021-03-29 01:28:01 Test Item Value Reference Range Interpretation Comments POCT GLU (test code = 0167031426) 170 mg/dL 70-110 H Lab Interpretation (test code = Abnormal 82015-8) [facility] GLUCOSE (AUTOMATED)2021-03-29 01:28:01 Test Item Value Reference Range Interpretation Comments POCT GLU (test code = 1377018614) 170 mg/dL 70-110 H Lab Interpretation (test code = Abnormal 01257-5) [facility] GLUCOSE (AUTOMATED)2021-03-28 21:52:00 Test Item Value Reference Range Interpretation Comments POCT GLU (test code = 7389344726) 215 mg/dL 70-110 H Lab Interpretation (test code = Abnormal 40890-2) [facility] GLUCOSE (AUTOMATED)2021-03-28 21:52:00 Test Item Value Reference Range Interpretation Comments POCT GLU (test code = 7899739511) 215 mg/dL 70-110 H Lab Interpretation (test code = Abnormal 03994-6) [facility] GLUCOSE (AUTOMATED)2021-03-28 16:45:57 Test Item Value Reference Range Interpretation Comments POCT GLU (test code = 5098644736) 244 mg/dL 70-110 H Lab Interpretation (test code = Abnormal 73324-4) [facility] GLUCOSE (AUTOMATED)2021-03-28 16:45:57 Test Item Value Reference Range Interpretation Comments POCT GLU (test code = 2180780546) 244 mg/dL 70-110 H Lab Interpretation (test code = Abnormal 79952-0) [facility] GLUCOSE (AUTOMATED)2021-03-28 12:31:07 Test Item Value Reference Range Interpretation Comments POCT GLU (test code = 1531796538) 176 mg/dL 70-110 H Lab Interpretation (test code = Abnormal 97072-4) [facility] GLUCOSE (AUTOMATED)2021-03-28 12:31:07 Test Item Value Reference Range Interpretation Comments POCT GLU (test code = 8445774269) 176 mg/dL 70-110 H Lab Interpretation (test code = Abnormal 28058-3) [facility] (NA, K, CL, CO2, GLUCOSE, BUN, CREATININE, CA)2021-03-28 12:03:59 Test Item Value Reference Range Interpretation Comments NA (test code = 128 mmol/L 135-145 L 6923811203) K (test code = 4.4 mmol/L 3.5-5.0 3304820249) CL (test code = 92 mmol/L 98-108 L 8258272521) CO2 TOTAL (test code = 29 mmol/L 23-31 9354037340) AGAP (test code = 2-16 1179016736) BUN (test code = 22 mg/dL 7-23 1227600904) GLUCOSE (test code = 166 mg/dL 70-110 H 1502557842) CREATININE (test code = 0.72 mg/dL 0.50-1.04 8283566330) CALCIUM (test code = 8.9 mg/dL 8.6-10.6 9601453201) eGFR (test code = mL/min/1.73m2 7335964380) KENA (test code = KENA) Association of [...] tests). Lab Interpretation Abnormal (test code = 91869-1) [facility] METABOLIC PANEL (NA, K, CL, CO2, GLUCOSE, BUN, CREATININE, CA)2021-03-28 12:03:59 Test Item Value Reference Range Interpretation Comments NA (test code = 128 mmol/L 135-145 L 9498511721) K (test code = 4.4 mmol/L 3.5-5.0 7182564502) CL (test code = 92 mmol/L 98-108 L 9746240075) CO2 TOTAL (test code = 29 mmol/L 23-31 6827495228) AGAP (test code = 2-16 5097849778) BUN (test code = 22 mg/dL 7-23 7015728923) GLUCOSE (test code = 166 mg/dL 70-110 H 4830676319) CREATININE (test code = 0.72 mg/dL 0.50-1.04 7444902635) CALCIUM (test code = 8.9 mg/dL 8.6-10.6 8152709289) eGFR (test code = mL/min/1.73m2 3103924679) KENA (test code = KENA) Association of [...] tests). Lab Interpretation Abnormal (test code = 33118-9) [facility] WITH [id number] 11:35:36 Test Item Value Reference Range Interpretation Comments WBC (test code = See_Comment [Automated 6890-2) message] The sy stem which generated this result transmitted reference range : 4.30 - 11.10 10*3/?L. The reference range was not used to interpret this result as normal/abnormal . RBC (test code = See_Comment [Automated 819-8) message] The sy stem which generated this [...] RDW-SD (test code = 44.0 fL 39.0-49.9 04818-6) RDW-CV (test code = 14.4 % 12.0-15.5 788-0) PLT (test code = See_Comment [Automated 777-3) message] The sy stem which generated this result transmitted reference range : 166 - 358 10*3/ ?L. The reference r ilan was not used to interpret this result as normal/abnormal . MPV (test code = 11.8 fL 9.5-12.9 05659-0) NRBC/100 WBC (test See_Comment [Automat ed code = 6551856678) message] The system which generated this result transmitted reference range : 0.0 - 10.0 /100 WBCs. The refer ence range was not u sed to interpret th is result as normal/abnormal . NRBC x10^3 (test code <0.01 See_Comment [Auto mated = 7076429953) message] The s ystem which generated this result transmitted reference range : 10*3/?L. The reference range was not used to interpret this result as normal/abnormal . GRAN MAT (NEUT) % 77.3 % (test code = 770-8) IMM GRAN % (test code 1.10 % = 1890748385) LYMPH % (test code = 6.7 % 736-9) MONO % (test code = 10.5 % 5905-5) EOS % (test code = 4.1 % 713-8) BASO % (test code = 0.3 % 706-2) GRAN MAT x10^3(ANC) 5.09 10*3/uL 1.88-7.09 (test code = 7329142437) IMM GRAN x10^3 (test 0.07 10*3/uL 0.00-0.06 H code = 1919458211) LYMPH x10^3 (test code 0.44 10*3/uL 1.32-3.29 L = 731-0) MONO x10^3 (test code 0.69 10*3/uL 0.33-0.92 = 742-7) EOS x10^3 (test code = 0.27 10*3/uL 0.03-0.39 711-2) BASO x10^3 (test code <0.03 0.01-0.07 = 704-7) Lab Interpretation Abnormal (test code = 79359-7) [facility] WITH [id number] 11:35:36 Test Item Value Reference Range Interpretation [...] RDW-SD (test code = 44.0 fL 39.0-49.9 66535-6) RDW-CV (test code = 14.4 % 12.0-15.5 788-0) PLT (test code = See_Comment [Automated 777-3) message] The sy stem which generated this result transmitted reference range : 166 - 358 10*3/ ?L. The reference r ilan was not used to interpret this result as normal/abnormal . MPV (test code = 11.8 fL 9.5-12.9 09860-7) NRBC/100 WBC (test See_Comment [Automat ed code = 8675843143) message] The system which generated this result transmitted reference range : 0.0 - 10.0 /100 WBCs. The refer ence range was not u sed to interpret th is result as normal/abnormal . NRBC x10^3 (test code <0.01 See_Comment [Auto mated = 3874976743) message] The s ystem which generated this result transmitted reference range : 10*3/?L. The reference range was not used to interpret this result as normal/abnormal . GRAN MAT (NEUT) % 77.3 % (test code = 770-8) IMM GRAN % (test code 1.10 % = 1711543009) LYMPH % (test code = 6.7 % 736-9) MONO % (test code = 10.5 % 5905-5) EOS % (test code = 4.1 % 713-8) BASO % (test code = 0.3 % 706-2) GRAN MAT x10^3(ANC) 5.09 10*3/uL 1.88-7.09 (test code = 7563243819) IMM GRAN x10^3 (test 0.07 10*3/uL 0.00-0.06 H code = 7428576700) LYMPH x10^3 (test code 0.44 10*3/uL 1.32-3.29 L = 731-0) MONO x10^3 (test code 0.69 10*3/uL 0.33-0.92 = 742-7) EOS x10^3 (test code = 0.27 10*3/uL 0.03-0.39 711-2) BASO x10^3 (test code <0.03 0.01-0.07 = 704-7) Lab Interpretation Abnormal (test code = 52965-6) [facility] GLUCOSE (AUTOMATED)2021-03-28 02:02:37 Test Item Value Reference Range Interpretation Comments POCT GLU (test code = 7302627696) 181 mg/dL 70-110 H Lab Interpretation (test code = Abnormal 77683-5) [facility] GLUCOSE (AUTOMATED)2021-03-28 02:02:37 Test Item Value Reference Range Interpretation Comments POCT GLU (test code = 6185233984) 181 mg/dL 70-110 H Lab Interpretation (test code = Abnormal 55332-7) [facility] GLUCOSE (AUTOMATED)2021-03-27 23:16:42 Test Item Value Reference Range Interpretation Comments POCT GLU (test code = 9476434823) 304 mg/dL 70-110 H Lab Interpretation (test code = Abnormal 06007-7) [facility] GLUCOSE (AUTOMATED)2021-03-27 23:16:42 Test Item Value Reference Range Interpretation Comments POCT GLU (test code = 1013641702) 304 mg/dL 70-110 H Lab Interpretation (test code = Abnormal 09768-3) [facility] GLUCOSE (AUTOMATED)2021-03-27 19:16:32 Test Item Value Reference Range Interpretation Comments POCT GLU (test code = 4624130067) 132 mg/dL 70-110 H Lab Interpretation (test code = Abnormal 82628-8) [facility] GLUCOSE (AUTOMATED)2021-03-27 19:16:32 Test Item Value Reference Range Interpretation Comments POCT GLU (test code = 8682257761) 132 mg/dL 70-110 H Lab Interpretation (test code = Abnormal 96141-3) [facility] GLUCOSE (AUTOMATED)2021-03-27 13:16:16 Test Item Value Reference Range Interpretation Comments POCT GLU (test code = 5720291678) 198 mg/dL 70-110 H Lab Interpretation (test code = Abnormal 15517-6) [facility] GLUCOSE (AUTOMATED)2021-03-27 13:16:16 Test Item Value Reference Range Interpretation Comments POCT GLU (test code = 9927834635) 198 mg/dL 70-110 H Lab Interpretation (test code = Abnormal 11954-4) [facility] METABOLIC PANEL (NA, K, CL, CO2, GLUCOSE, BUN, CREATININE, CA)2021-03-27 12:53:08 Test Item Value Reference Range Interpretation Comments NA (test code = 129 mmol/L 135-145 L 6747010322) K (test code = 4.4 mmol/L 3.5-5.0 7542238257) CL (test code = 91 mmol/L 98-108 L 1376292782) CO2 TOTAL (test code = 33 mmol/L 23-31 H 7793560442) AGAP (test code = 2-16 5322112013) BUN (test code = 22 mg/dL 7-23 0325070685) GLUCOSE (test code = 197 mg/dL 70-110 H 2172574786) CREATININE (test code = 0.79 mg/dL 0.50-1.04 7532099743) CALCIUM (test code = 8.9 mg/dL 8.6-10.6 9985450330) eGFR (test code = mL/min/1.73m2 7544654100) KENA (test code = KENA) Association of [...] tests). Lab Interpretation Abnormal (test code = 34238-7) [facility] METABOLIC PANEL (NA, K, CL, CO2, GLUCOSE, BUN, CREATININE, CA)2021-03-27 12:53:08 Test Item Value Reference Range Interpretation Comments NA (test code = 129 mmol/L 135-145 L 9746316687) K (test code = 4.4 mmol/L 3.5-5.0 1061938095) CL (test code = 91 mmol/L 98-108 L 9385938906) CO2 TOTAL (test code = 33 mmol/L 23-31 H 8347606951) AGAP (test code = 2-16 0582912242) BUN (test code = 22 mg/dL 7-23 4996020934) GLUCOSE (test code = 197 mg/dL 70-110 H 5582594869) CREATININE (test code = 0.79 mg/dL 0.50-1.04 4379906631) CALCIUM (test code = 8.9 mg/dL 8.6-10.6 4065398087) eGFR (test code = mL/min/1.73m2 1375429509) KENA (test code = KENA) Association of [...] tests). Lab Interpretation Abnormal (test code = 02760-9) [facility] WITH [id number] 12:23:50 Test Item Value Reference Range Interpretation Comments WBC (test code = See_Comment [Automated 1051-2) message] The sy stem which generated this result transmitted reference range : 4.30 - 11.10 10*3/?L. The reference range was not used to interpret this result as normal/abnormal . RBC (test code = See_Comment [Automated 702-8) message] The sy stem which generated this [...] RDW-SD (test code = 44.0 fL 39.0-49.9 09673-9) RDW-CV (test code = 14.2 % 12.0-15.5 788-0) PLT (test code = See_Comment [Automated 777-3) message] The sy stem which generated this result transmitted reference range : 166 - 358 10*3/ ?L. The reference r ilan was not used to interpret this result as normal/abnormal . MPV (test code = 11.4 fL 9.5-12.9 97474-1) NRBC/100 WBC (test See_Comment [Automat ed code = 4959237169) message] The system which generated this result transmitted reference range : 0.0 - 10.0 /100 WBCs. The refer ence range was not u sed to interpret th is result as normal/abnormal . NRBC x10^3 (test code <0.01 See_Comment [Auto mated = 2325115477) message] The s ystem which generated this result transmitted reference range : 10*3/?L. The reference range was not used to interpret this result as normal/abnormal . GRAN MAT (NEUT) % 77.0 % (test code = 770-8) IMM GRAN % (test code 1.80 % = 4026342047) LYMPH % (test code = 6.6 % 736-9) MONO % (test code = 9.9 % 5905-5) EOS % (test code = 4.4 % 713-8) BASO % (test code = 0.3 % 706-2) GRAN MAT x10^3(ANC) 4.77 10*3/uL 1.88-7.09 (test code = 4871518976) IMM GRAN x10^3 (test 0.11 10*3/uL 0.00-0.06 H code = 3567064466) LYMPH x10^3 (test code 0.41 10*3/uL 1.32-3.29 L = 731-0) MONO x10^3 (test code 0.61 10*3/uL 0.33-0.92 = 742-7) EOS x10^3 (test code = 0.27 10*3/uL 0.03-0.39 711-2) BASO x10^3 (test code <0.03 0.01-0.07 = 704-7) Lab Interpretation Abnormal (test code = 00504-0) [facility] WITH [id number] 12:23:50 Test Item Value Reference Range Interpretation Comments WBC (test code = See_Comment [Automated 2190-2) message] The sy stem which generated this [...] RDW-SD (test code = 44.0 fL 39.0-49.9 62044-7) RDW-CV (test code = 14.2 % 12.0-15.5 788-0) PLT (test code = See_Comment [Automated 777-3) message] The sy stem which generated this result transmitted reference range : 166 - 358 10*3/ ?L. The reference r ilan was not used to interpret this result as normal/abnormal . MPV (test code = 11.4 fL 9.5-12.9 79890-7) NRBC/100 WBC (test See_Comment [Automat ed code = 7622806413) message] The system which generated this result transmitted reference range : 0.0 - 10.0 /100 WBCs. The refer ence range was not u sed to interpret th is result as normal/abnormal . NRBC x10^3 (test code <0.01 See_Comment [Auto mated = 0222034252) message] The s ystem which generated this result transmitted reference range : 10*3/?L. The reference range was not used to interpret this result as normal/abnormal . GRAN MAT (NEUT) % 77.0 % (test code = 770-8) IMM GRAN % (test code 1.80 % = 5358471477) LYMPH % (test code = 6.6 % 736-9) MONO % (test code = 9.9 % 5905-5) EOS % (test code = 4.4 % 713-8) BASO % (test code = 0.3 % 706-2) GRAN MAT x10^3(ANC) 4.77 10*3/uL 1.88-7.09 (test code = 2493224664) IMM GRAN x10^3 (test 0.11 10*3/uL 0.00-0.06 H code = 1094269354) LYMPH x10^3 (test code 0.41 10*3/uL 1.32-3.29 L = 731-0) MONO x10^3 (test code 0.61 10*3/uL 0.33-0.92 = 742-7) EOS x10^3 (test code = 0.27 10*3/uL 0.03-0.39 711-2) BASO x10^3 (test code <0.03 0.01-0.07 = 704-7) Lab Interpretation Abnormal (test code = 65829-7) [facility] GLUCOSE (AUTOMATED)2021-03-27 11:45:51 Test Item Value Reference Range Interpretation Comments POCT GLU (test code = 212 mg/dL 70-110 H Notifi ed Provider [id number]) Lab Interpretation (test Abnormal code = 35320-8) [facility] GLUCOSE (AUTOMATED)2021-03-27 11:45:51 Test Item Value Reference Range Interpretation Comments POCT GLU (test code = 212 mg/dL 70-110 H Notifi ed Provider [id number]) Lab Interpretation (test Abnormal code = 42775-6) [facility] GLUCOSE (AUTOMATED)2021-03-26 23:44:19 Test Item Value Reference Range Interpretation Comments POCT GLU (test code = 5551113682) 234 mg/dL 70-110 H Lab Interpretation (test code = Abnormal 91826-5) [facility] 23:44:19 Test Item Value Reference Range Interpretation Comments POCT GLU (test code = 9530425437) 234 mg/dL 70-110 H Lab Interpretation (test code = Abnormal 39105-2) [facility] GLUCOSE (AUTOMATED)2021-03-26 22:48:08 Test Item Value Reference Range Interpretation Comments POCT GLU (test code = 7589625079) 225 mg/dL 70-110 H Lab Interpretation (test code = Abnormal 49021-4) [facility] GLUCOSE (AUTOMATED)2021-03-26 22:48:08 Test Item Value Reference Range Interpretation Comments POCT GLU (test code = 3218119271) 225 mg/dL 70-110 H Lab Interpretation (test code = Abnormal 66076-2) [facility] GLUCOSE (AUTOMATED)2021-03-26 17:15:22 Test Item Value Reference Range Interpretation Comments POCT GLU (test code = 4028472358) 189 mg/dL 70-110 H Lab Interpretation (test code = Abnormal 13405-9) [facility] GLUCOSE (AUTOMATED)2021-03-26 17:15:22 Test Item Value Reference Range Interpretation Comments POCT GLU (test code = 9157288275) 189 mg/dL 70-110 H Lab Interpretation (test code = Abnormal 10789-6) [facility] GLUCOSE (AUTOMATED)2021-03-26 13:14:34 Test Item Value Reference Range Interpretation Comments POCT GLU (test code = 0106416543) 187 mg/dL 70-110 H Lab Interpretation (test code = Abnormal 54917-6) [facility] 13:14:34 Test Item Value Reference Range Interpretation Comments POCT GLU (test code = 2647628286) 187 mg/dL 70-110 H Lab Interpretation (test code = Abnormal 92377-7) [facility] GLUCOSE (AUTOMATED)2021-03-25 22:03:35 Test Item Value Reference Range Interpretation Comments POCT GLU (test code = 9937116003) 161 mg/dL 70-110 H Lab Interpretation (test code = Abnormal 54296-2) [facility] GLUCOSE (AUTOMATED)2021-03-25 22:03:35 Test Item Value Reference Range Interpretation Comments POCT GLU (test code = [id number]) 161 mg/dL 70-110 H Lab Interpretation (test code = Abnormal 18759-7) [facility] GLUCOSE (AUTOMATED)2021-03-25 16:12:14 Test Item Value Reference Range Interpretation Comments POCT GLU (test code = [id number]) 182 mg/dL 70-110 H Lab Interpretation (test code = Abnormal 84388-0) [facility] GLUCOSE (AUTOMATED)2021-03-25 16:12:14 Test Item Value Reference Range Interpretation Comments POCT GLU (test code = [id number]) 182 mg/dL 70-110 H Lab Interpretation (test code = Abnormal 34405-4) [facility] GLUCOSE (AUTOMATED)2021-03-25 13:37:16 Test Item Value Reference Range Interpretation Comments POCT GLU (test code = 4186529503) 140 mg/dL 70-110 H Lab Interpretation (test code = Abnormal 48596-9) [facility] GLUCOSE (AUTOMATED)2021-03-25 13:37:16 Test Item Value Reference Range Interpretation Comments POCT GLU (test code = 9941113604) 140 mg/dL 70-110 H Lab Interpretation (test code = Abnormal 70615-9) [facility] METABOLIC PANEL (NA, K, CL, CO2, GLUCOSE, BUN, CREATININE, CA)2021-03-25 11:51:11 Test Item Value Reference Range Interpretation Comments NA (test code = 130 mmol/L 135-145 L 5368938767) K (test code = 4.3 mmol/L 3.5-5.0 9233167656) CL (test code = 93 mmol/L 98-108 L 4246243820) CO2 TOTAL (test code = 31 mmol/L 23-31 0826079875) AGAP (test code = 2-16 4272749041) BUN (test code = 25 mg/dL 7-23 H 9036374258) GLUCOSE (test code = 141 mg/dL 70-110 H 9266105944) CREATININE (test code = 0.80 mg/dL 0.50-1.04 4130667167) CALCIUM (test code = 8.9 mg/dL 8.6-10.6 0566660318) eGFR (test code = mL/min/1.73m2 7438301893) KENA (test code = KENA) Association of [...] tests). Lab Interpretation Abnormal (test code = 08003-9) [facility] METABOLIC PANEL (NA, K, CL, CO2, GLUCOSE, BUN, CREATININE, CA)2021-03-25 11:51:11 Test Item Value Reference Range Interpretation Comments NA (test code = 130 mmol/L 135-145 L 0408656239) K (test code = 4.3 mmol/L 3.5-5.0 7432485968) CL (test code = 93 mmol/L 98-108 L 7410473770) CO2 TOTAL (test code = 31 mmol/L 23-31 3171919480) AGAP (test code = 2-16 9867335116) BUN (test code = 25 mg/dL 7-23 H 1520455880) GLUCOSE (test code = 141 mg/dL 70-110 H 2012859361) CREATININE (test code = 0.80 mg/dL 0.50-1.04 4480727170) CALCIUM (test code = 8.9 mg/dL 8.6-10.6 9285652825) eGFR (test code = mL/min/1.73m2 6183548082) KENA (test code = KENA) Association of [...] tests). Lab Interpretation Abnormal (test code = 58562-3) [facility] WITH [id number] 11:28:10 Test Item Value Reference Range Interpretation Comments WBC (test code = See_Comment [Automated 6143-2) message] The sy stem which generated this [...] RDW-SD (test code = 45.0 fL 39.0-49.9 78511-1) RDW-CV (test code = 14.5 % 12.0-15.5 788-0) PLT (test code = See_Comment [Automated 777-3) message] The sy stem which generated this result transmitted reference range : 166 - 358 10*3/ ?L. The reference r ilan was not used to interpret this result as normal/abnormal . MPV (test code = 11.6 fL 9.5-12.9 75539-1) NRBC/100 WBC (test See_Comment [Automat ed code = 7323322413) message] The system which generated this result transmitted reference range : 0.0 - 10.0 /100 WBCs. The refer ence range was not u sed to interpret th is result as normal/abnormal . NRBC x10^3 (test code <0.01 See_Comment [Auto mated = 8284859445) message] The s ystem which generated this result transmitted reference range : 10*3/?L. The reference range was not used to interpret this result as normal/abnormal . GRAN MAT (NEUT) % 71.9 % (test code = 770-8) IMM GRAN % (test code 1.00 % = 1945567297) LYMPH % (test code = 8.2 % 736-9) MONO % (test code = 10.5 % 5905-5) EOS % (test code = 8.0 % 713-8) BASO % (test code = 0.4 % 706-2) GRAN MAT x10^3(ANC) 3.51 10*3/uL 1.88-7.09 (test code = 0691262123) IMM GRAN x10^3 (test 0.05 10*3/uL 0.00-0.06 code = 6963624518) LYMPH x10^3 (test code 0.40 10*3/uL 1.32-3.29 L = 731-0) MONO x10^3 (test code 0.51 10*3/uL 0.33-0.92 = 742-7) EOS x10^3 (test code = 0.39 10*3/uL 0.03-0.39 711-2) BASO x10^3 (test code <0.03 0.01-0.07 = 704-7) Lab Interpretation Abnormal (test code = 26004-4) [facility] WITH [id number] 11:28:10 Test Item Value Reference Range Interpretation Comments WBC (test code = See_Comment [Automated 6690-2) message] The sy stem which generated this result transmitted reference range : 4.30 - 11.10 10*3/?L. The reference range was not used to interpret this result as normal/abnormal . RBC (test code = See_Comment [Automated 859-8) message] The sy stem which generated this [...] RDW-SD (test code = 45.0 fL 39.0-49.9 40728-3) RDW-CV (test code = 14.5 % 12.0-15.5 788-0) PLT (test code = See_Comment [Automated 777-3) message] The sy stem which generated this result transmitted reference range : 166 - 358 10*3/ ?L. The reference r ilan was not used to interpret this result as normal/abnormal . MPV (test code = 11.6 fL 9.5-12.9 71381-0) NRBC/100 WBC (test See_Comment [Automat ed code = 1490414499) message] The system which generated this result transmitted reference range : 0.0 - 10.0 /100 WBCs. The refer ence range was not u sed to interpret th is result as normal/abnormal . NRBC x10^3 (test code <0.01 See_Comment [Auto mated = 0710623181) message] The s ystem which generated this result transmitted reference range : 10*3/?L. The reference range was not used to interpret this result as normal/abnormal . GRAN MAT (NEUT) % 71.9 % (test code = 770-8) IMM GRAN % (test code 1.00 % = 8878710154) LYMPH % (test code = 8.2 % 736-9) MONO % (test code = 10.5 % 5905-5) EOS % (test code = 8.0 % 713-8) BASO % (test code = 0.4 % 706-2) GRAN MAT x10^3(ANC) 3.51 10*3/uL 1.88-7.09 (test code = 0579578620) IMM GRAN x10^3 (test 0.05 10*3/uL 0.00-0.06 code = 6196865971) LYMPH x10^3 (test code 0.40 10*3/uL 1.32-3.29 L = 731-0) MONO x10^3 (test code 0.51 10*3/uL 0.33-0.92 = 742-7) EOS x10^3 (test code = 0.39 10*3/uL 0.03-0.39 711-2) BASO x10^3 (test code <0.03 0.01-0.07 = 704-7) Lab Interpretation Abnormal (test code = 81337-4) [facility] GLUCOSE (AUTOMATED)2021-03-25 01:35:21 Test Item Value Reference Range Interpretation Comments POCT GLU (test code = 5457438677) 209 mg/dL 70-110 H Lab Interpretation (test code = Abnormal 25794-1) [facility] GLUCOSE (AUTOMATED)2021-03-25 01:35:21 Test Item Value Reference Range Interpretation Comments POCT GLU (test code = 9764741560) 209 mg/dL 70-110 H Lab Interpretation (test code = Abnormal 33371-7) [facility] GLUCOSE (AUTOMATED)2021-03-24 21:36:03 Test Item Value Reference Range Interpretation Comments POCT GLU (test code = 1159183564) 235 mg/dL 70-110 H Lab Interpretation (test code = Abnormal 65072-0) [facility] GLUCOSE (AUTOMATED)2021-03-24 21:36:03 Test Item Value Reference Range Interpretation Comments POCT GLU (test code = 3432784851) 151 mg/dL 70-110 H Lab Interpretation (test code = Abnormal 89659-7) [facility] GLUCOSE (AUTOMATED)2021-03-24 21:36:03 Test Item Value Reference Range Interpretation Comments POCT GLU (test code = 1993536287) 235 mg/dL 70-110 H Lab Interpretation (test code = Abnormal 00850-8) [facility] GLUCOSE (AUTOMATED)2021-03-24 21:36:03 Test Item Value Reference Range Interpretation Comments POCT GLU (test code = 0486539829) 151 mg/dL 70-110 H Lab Interpretation (test code = Abnormal 65409-7) [facility] GLUCOSE (AUTOMATED)2021-03-24 21:29:46 Test Item Value Reference Range Interpretation Comments POCT GLU (test code = 8906634109) 265 mg/dL 70-110 H Lab Interpretation (test code = Abnormal 25327-9) [facility] GLUCOSE (AUTOMATED)2021-03-24 21:29:46 Test Item Value Reference Range Interpretation Comments POCT GLU (test code = 4351324609) 265 mg/dL 70-110 H Lab Interpretation (test code = Abnormal 76609-9) [facility] GLUCOSE (AUTOMATED)2021-03-24 17:05:33 Test Item Value Reference Range Interpretation Comments POCT GLU (test code = 6732048176) 220 mg/dL 70-110 H Lab Interpretation (test code = Abnormal 00415-7) [facility] GLUCOSE (AUTOMATED)2021-03-24 17:05:33 Test Item Value Reference Range Interpretation Comments POCT GLU (test code = 7716444326) 220 mg/dL 70-110 H Lab Interpretation (test code = Abnormal 80961-1) [facility] GLUCOSE (AUTOMATED)2021-03-23 22:37:27 Test Item Value Reference Range Interpretation Comments POCT GLU (test code = 7019307266) 244 mg/dL 70-110 H Lab Interpretation (test code = Abnormal 52575-3) [facility] GLUCOSE (AUTOMATED)2021-03-23 22:37:27 Test Item Value Reference Range Interpretation Comments POCT GLU (test code = 4650403478) 244 mg/dL 70-110 H Lab Interpretation (test code = Abnormal 99344-6) [facility] [id number] 16:03:03 Test Item Value Reference Interpretation Comments Range TROPONIN I (test 0.003 ng/mL See_Comment [Automated code = 6897543057) message] The system which generated this result [...] biotin. Lab Interpretation Normal (test code = 99817-7) [facility] [id number] 16:03:03 Test Item Value Reference Interpretation Comments Range TROPONIN I (test 0.003 ng/mL See_Comment [Automated code = 4182606510) message] The system which generated this result [...] biotin. Lab Interpretation Normal (test code = 40271-6) [id number] 15:59:37 Test Item Value Reference Range Interpretation Comments NT-proBNP (test code 1390 pg/mL See_Comment H [Autom ated = 5658656050) message] The system which generated this result transmitted reference range : <=450. The reference range was not used to interpret this result as normal/abnormal . KENA (test code = KENA) Biotin has been reported to cause a negative bias, interpret results relative to patient's use of biotin. Lab Interpretation Abnormal (test code = 47733-9) [id number] 15:59:37 Test Item Value Reference Range Interpretation Comments NT-proBNP (test code 1390 pg/mL See_Comment H [Autom ated = 9411895452) message] The system which generated this result transmitted reference range : <=450. The reference range was not used to interpret this result as normal/abnormal . KENA (test code = KENA) Biotin has been reported to cause a negative bias, interpret results relative to patient's use of biotin. Lab Interpretation Abnormal (test code = 62675-5) [facility]98077[facility]-23 15:51:33 Test Item Value Reference Range Interpretation Comments NA (test code = 132 mmol/L 135-145 L 8023320571) K (test code = 4.5 mmol/L 3.5-5.0 0843023313) CL (test code = 95 mmol/L 98-108 L 7618772144) CO2 TOTAL (test code = 28 mmol/L 23-31 2659713059) AGAP (test code = 2-16 6589240647) BUN (test code = 23 mg/dL 7-23 5808143620) GLUCOSE (test code = 295 mg/dL 70-110 H 8512612586) CREATININE (test code = 0.79 mg/dL 0.50-1.04 6643578390) TOTAL BILI (test code = 0.9 mg/dL 0.1-1.9 9875022890) CALCIUM (test code = 8.8 mg/dL 8.6-10.6 4586184374) T PROTEIN (test code = 7.1 g/dL 6.3-8.2 2535510910) ALBUMIN (test code = 3.8 g/dL 3.5-5.0 2140733236) ALK PHOS (test code = 135 U/L 34-122 H 8618644880) ALTv (test code = 21 U/L 5-35 1742-6) AST(SGOT) (test code = 25 U/L 13-40 9193940866) eGFR (test code = mL/min/1.73m2 0401116664) KENA (test code = KENA) Association of [...] tests). Lab Interpretation Abnormal (test code = 00757-5) [facility]. METABOLIC PANEL (73266)2021-03-23 15:51:33 Test Item Value Reference Range Interpretation Comments NA (test code = 132 mmol/L 135-145 L 6307735813) K (test code = 4.5 mmol/L 3.5-5.0 2553732918) CL (test code = 95 mmol/L 98-108 L 8143757610) CO2 TOTAL (test code = 28 mmol/L 23-31 0063630593) AGAP (test code = 2-16 6297851421) BUN (test code = 23 mg/dL 7-23 8783460940) GLUCOSE (test code = 295 mg/dL 70-110 H 2332979200) CREATININE (test code = 0.79 mg/dL 0.50-1.04 3963496957) TOTAL BILI (test code = 0.9 mg/dL 0.1-1.0 3209543020) CALCIUM (test code = 8.8 mg/dL 8.6-10.6 9954466600) T PROTEIN (test code = 7.1 g/dL 6.3-8.2 1399833247) ALBUMIN (test code = 3.8 g/dL 3.5-5.0 5442611534) ALK PHOS (test code = 135 U/L 34-122 H 0726711892) ALTv (test code = 21 U/L 5-35 1742-6) AST(SGOT) (test code = 25 U/L 13-40 8558577566) eGFR (test code = mL/min/1.73m2 1379896983) KENA (test code = KENA) Association of [...] tests). Lab Interpretation Abnormal (test code = 29744-3) [facility] WITH [id number] 15:39:13 Test Item Value Reference Range Interpretation Comments WBC (test code = See_Comment [Automated 2449-2) message] The sy stem which generated this result transmitted reference range : 4.30 - 11.10 10*3/?L. The reference range was not used to interpret this result as normal/abnormal . RBC (test code = See_Comment [Automated 698-2) message] The sy stem which generated this [...] RDW-SD (test code = 46.4 fL 39.0-49.9 59175-2) RDW-CV (test code = 14.7 % 12.0-15.5 788-0) PLT (test code = See_Comment [Automated 777-3) message] The sy stem which generated this result transmitted reference range : 166 - 358 10*3/ ?L. The reference r ilan was not used to interpret this result as normal/abnormal . MPV (test code = 11.0 fL 9.5-12.9 50543-3) NRBC/100 WBC (test See_Comment [Automat ed code = 4846610807) message] The system which generated this result transmitted reference range : 0.0 - 10.0 /100 WBCs. The refer ence range was not u sed to interpret th is result as normal/abnormal . NRBC x10^3 (test code <0.01 See_Comment [Auto mated = 9377506565) message] The s ystem which generated this result transmitted reference range : 10*3/?L. The reference range was not used to interpret this result as normal/abnormal . GRAN MAT (NEUT) % 86.1 % (test code = 770-8) IMM GRAN % (test code 0.90 % = 7211020253) LYMPH % (test code = 3.2 % 736-9) MONO % (test code = 5.3 % 5905-5) EOS % (test code = 4.2 % 713-8) BASO % (test code = 0.3 % 706-2) GRAN MAT x10^3(ANC) 6.81 10*3/uL 1.88-7.09 (test code = 9709348070) IMM GRAN x10^3 (test 0.07 10*3/uL 0.00-0.06 H code = 6993904112) LYMPH x10^3 (test code 0.25 10*3/uL 1.32-3.29 L = 731-0) MONO x10^3 (test code 0.42 10*3/uL 0.33-0.92 = 742-7) EOS x10^3 (test code = 0.33 10*3/uL 0.03-0.39 711-2) BASO x10^3 (test code <0.03 0.01-0.07 = 704-7) Lab Interpretation Abnormal (test code = 81490-7) [facility] WITH [id number] 15:39:13 Test Item Value Reference Range Interpretation Comments WBC (test code = See_Comment [Automated 2090-2) message] The sy stem which generated this [...] RDW-SD (test code = 46.4 fL 39.0-49.9 59868-5) RDW-CV (test code = 14.7 % 12.0-15.5 788-0) PLT (test code = See_Comment [Automated 777-3) message] The sy stem which generated this result transmitted reference range : 166 - 358 10*3/ ?L. The reference r ilan was not used to interpret this result as normal/abnormal . MPV (test code = 11.0 fL 9.5-12.9 96858-3) NRBC/100 WBC (test See_Comment [Automat ed code = 1983269450) message] The system which generated this result transmitted reference range : 0.0 - 10.0 /100 WBCs. The refer ence range was not u sed to interpret th is result as normal/abnormal . NRBC x10^3 (test code <0.01 See_Comment [Auto mated = 1725627182) message] The s ystem which generated this result transmitted reference range : 10*3/?L. The reference range was not used to interpret this result as normal/abnormal . GRAN MAT (NEUT) % 86.1 % (test code = 770-8) IMM GRAN % (test code 0.90 % = 3895220772) LYMPH % (test code = 3.2 % 736-9) MONO % (test code = 5.3 % 5905-5) EOS % (test code = 4.2 % 713-8) BASO % (test code = 0.3 % 706-2) GRAN MAT x10^3(ANC) 6.81 10*3/uL 1.88-7.09 (test code = 5550630147) IMM GRAN x10^3 (test 0.07 10*3/uL 0.00-0.06 H code = 5767985420) LYMPH x10^3 (test code 0.25 10*3/uL 1.32-3.29 L = 731-0) MONO x10^3 (test code 0.42 10*3/uL 0.33-0.92 = 742-7) EOS x10^3 (test code = 0.33 10*3/uL 0.03-0.39 711-2) BASO x10^3 (test code <0.03 0.01-0.07 = 704-7) Lab Interpretation Abnormal (test code = 35001-7) [facility] GLUCOSE (AUTOMATED)2021-03-17 22:20:52 Test Item Value Reference Range Interpretation Comments POCT GLU (test code = 296 mg/dL 70-110 H Notifi ed Provider [id number]) Lab Interpretation (test Abnormal code = 33978-7) [facility] GLUCOSE (AUTOMATED)2021-03-17 22:20:52 Test Item Value Reference Range Interpretation Comments POCT GLU (test code = 296 mg/dL 70-110 H Notifi ed Provider 5738937927) Lab Interpretation (test Abnormal code = 58256-1) [facility] GLUCOSE (AUTOMATED)2021-03-17 16:52:36 Test Item Value Reference Range Interpretation Comments POCT GLU (test code = 5986977284) 139 mg/dL 70-110 H Lab Interpretation (test code = Abnormal 32534-1) [facility] GLUCOSE (AUTOMATED)2021-03-17 16:52:36 Test Item Value Reference Range Interpretation Comments POCT GLU (test code = 4309411557) 139 mg/dL 70-110 H Lab Interpretation (test code = Abnormal 48925-5) [facility]-REACTIVE [id number] 15:24:26 Test Item Value Reference Range Interpretation Comments CRP (test code = 3496863274) 0.8 mg/dL <0.8 H Lab Interpretation (test code = Abnormal 60706-3) [facility]-REACTIVE [id number] 15:24:26 Test Item Value Reference Range Interpretation Comments CRP (test code = 0303312571) 0.8 mg/dL <0.8 H Lab Interpretation (test code = Abnormal 03509-5) [facility] GLUCOSE (AUTOMATED)2021-03-17 13:16:28 Test Item Value Reference Range Interpretation Comments POCT GLU (test code = 6802647130) 141 mg/dL 70-110 H Lab Interpretation (test code = Abnormal 47673-0) [facility] GLUCOSE (AUTOMATED)2021-03-17 13:16:28 Test Item Value Reference Range Interpretation Comments POCT GLU (test code = 3677361938) 141 mg/dL 70-110 H Lab Interpretation (test code = Abnormal 62806-6) [facility] Metabolic Panel (NA, K, CL, CO2, GLUCOSE, BUN, CREATININE, CA)2021-03-17 11:17:30 Test Item Value Reference Range Interpretation Comments NA (test code = 133 mmol/L 135-145 L 7718107107) K (test code = 4.8 mmol/L 3.5-5.0 5964126631) CL (test code = 94 mmol/L 98-108 L 2566468956) CO2 TOTAL (test code = 31 mmol/L 23-31 0650695670) AGAP (test code = 2-16 1081303972) BUN (test code = 19 mg/dL 7- 3511243589) GLUCOSE (test code = 172 mg/dL 70-110 H 5567694671) CREATININE (test code = 0.67 mg/dL 0.50-1.04 4125685844) CALCIUM (test code = 8.9 mg/dL 8.6-10.6 3206646979) eGFR (test code = mL/min/1.73m2 5603994270) KENA (test code = KENA) Association of [...] tests). Lab Interpretation Abnormal (test code = 29170-5) [facility] [id number] 11:17:30 Test Item Value Reference Range Interpretation Comments MAGNESIUM (test code = 2155777766) 1.7 mg/dL 1.7-2.4 Lab Interpretation (test code = Normal 23750-2) [facility] Metabolic Panel (NA, K, CL, CO2, GLUCOSE, BUN, CREATININE, CA)2021-03-17 11:17:30 Test Item Value Reference Range Interpretation Comments NA (test code = 133 mmol/L 135-145 L 1674942082) K (test code = 4.8 mmol/L 3.5-5.0 0308393668) CL (test code = 94 mmol/L 98-108 L 0864467056) CO2 TOTAL (test code = 31 mmol/L 23-31 0498539626) AGAP (test code = 2-16 0813668546) BUN (test code = 19 mg/dL 7-23 3020932360) GLUCOSE (test code = 172 mg/dL 70-110 H 0135743271) CREATININE (test code = 0.67 mg/dL 0.50-1.04 3686570899) CALCIUM (test code = 8.9 mg/dL 8.6-10.6 5476861132) eGFR (test code = mL/min/1.73m2 1858244683) KENA (test code = KENA) Association of [...] tests). Lab Interpretation Abnormal (test code = 93545-6) [facility] [id number] 11:17:30 Test Item Value Reference Range Interpretation Comments MAGNESIUM (test code = 9425851971) 1.7 mg/dL 1.7-2.4 Lab Interpretation (test code = Normal 51441-6) [facility] [id number] 11:02:24 Test Item Value Reference Range Interpretation [...] RDW-SD (test code = 46.7 fL 39.0-49.9 79290-1) RDW-CV (test code = 14.7 % 12.0-15.5 788-0) PLT (test code = See_Comment [Automated 777-3) message] The sy stem which generated this result transmitted reference range : 166 - 358 10*3/ ?L. The reference r ilan was not used to interpret this result as normal/abnormal . MPV (test code = 11.6 fL 9.5-12.9 91379-8) NRBC/100 WBC (test See_Comment [Automat ed code = 4914369548) message] The system which generated this result transmitted reference range : 0.0 - 10.0 /100 WBCs. The refer ence range was not u sed to interpret th is result as normal/abnormal . NRBC x10^3 (test code <0.01 See_Comment [Auto mated = 6985822348) message] The s ystem which generated this result transmitted reference range : 10*3/?L. The reference range was not used to interpret this result as normal/abnormal . GRAN MAT (NEUT) % 77.8 % (test code = 770-8) IMM GRAN % (test code 0.40 % = 6518285818) LYMPH % (test code = 10.3 % 736-9) MONO % (test code = 11.5 % 5905-5) EOS % (test code = 0.0 % 713-8) BASO % (test code = 0.0 % 706-2) GRAN MAT x10^3(ANC) 1.97 10*3/uL 1.88-7.09 (test code = 7619870661) IMM GRAN x10^3 (test <0.03 0.00-0.06 code = 2167239898) LYMPH x10^3 (test code 0.26 10*3/uL 1.32-3.29 L = 731-0) MONO x10^3 (test code 0.29 10*3/uL 0.33-0.92 L = 742-7) EOS x10^3 (test code = <0.03 0.03-0.39 L 711-2) BASO x10^3 (test code <0.03 0.01-0.07 = 704-7) Lab Interpretation Abnormal (test code = 12053-7) [facility] with [id number] 11:02:24 Test Item Value Reference Range Interpretation Comments WBC (test code = See_Comment L [Automated 3290-2) message] The sy stem which generated this result transmitted reference range : 4.30 - 11.10 10*3/?L. The reference range was not used to interpret this result as normal/abnormal . RBC (test code = See_Comment [Automated 859-8) message] The sy stem which generated this [...] RDW-SD (test code = 46.7 fL 39.0-49.9 82555-0) RDW-CV (test code = 14.7 % 12.0-15.5 788-0) PLT (test code = See_Comment [Automated 777-3) message] The sy stem which generated this result transmitted reference range : 166 - 358 10*3/ ?L. The reference r ilan was not used to interpret this result as normal/abnormal . MPV (test code = 11.6 fL 9.5-12.9 06834-0) NRBC/100 WBC (test See_Comment [Automat ed code = 8790993022) message] The system which generated this result transmitted reference range : 0.0 - 10.0 /100 WBCs. The refer ence range was not u sed to interpret th is result as normal/abnormal . NRBC x10^3 (test code <0.01 See_Comment [Auto mated = 6656221606) message] The s ystem which generated this result transmitted reference range : 10*3/?L. The reference range was not used to interpret this result as normal/abnormal . GRAN MAT (NEUT) % 77.8 % (test code = 770-8) IMM GRAN % (test code 0.40 % = 0440228647) LYMPH % (test code = 10.3 % 736-9) MONO % (test code = 11.5 % 5905-5) EOS % (test code = 0.0 % 713-8) BASO % (test code = 0.0 % 706-2) GRAN MAT x10^3(ANC) 1.97 10*3/uL 1.88-7.09 (test code = 5865951926) IMM GRAN x10^3 (test <0.03 0.00-0.06 code = 1093113389) LYMPH x10^3 (test code 0.26 10*3/uL 1.32-3.29 L = 731-0) MONO x10^3 (test code 0.29 10*3/uL 0.33-0.92 L = 742-7) EOS x10^3 (test code = <0.03 0.03-0.39 L 711-2) BASO x10^3 (test code <0.03 0.01-0.07 = 704-7) Lab Interpretation Abnormal (test code = 80989-3) [facility] GLUCOSE (AUTOMATED)2021-03-17 02:24:14 Test Item Value Reference Range Interpretation Comments POCT GLU (test code = 2553203295) 230 mg/dL 70-110 H Lab Interpretation (test code = Abnormal 96487-6) [facility] GLUCOSE (AUTOMATED)2021-03-17 02:24:14 Test Item Value Reference Range Interpretation Comments POCT GLU (test code = 7451723937) 230 mg/dL 70-110 H Lab Interpretation (test code = Abnormal 04278-8) [facility] [id number] 02:14:13 Test Item Value Reference Range Interpretation Comments PROTIME PATIENT (test See_Comment H [Auto mated message] code = 5964-2) The system [employer] generated this result transmitted ref erence range: 10.1 - 1 2.6 Seconds. The reference range was not used to int erpret this result as normal/abnormal . INR (test code = 6301-6) Nor mal INR <1.1; Warfarin Therap eutic range 2.0 to 3. 0 or 2.5 to 3.5, dep ending upon the indica tions. Lab Interpretation (test Abnormal code = 40944-2) [facility] / [id number] 02:14:13 Test Item Value Reference Range Interpretation Comments PROTIME PATIENT (test See_Comment H [Auto mated message] code = 5964-2) The system [employer] generated this result transmitted ref erence range: 10.1 - 1 2.6 Seconds. The reference range was not used to int erpret this result as normal/abnormal . INR (test code = 6301-6) Nor mal INR <1.1; Warfarin Therap eutic range 2.0 to 3. 0 or 2.5 to 3.5, dep ending upon the indica tions. Lab Interpretation (test Abnormal code = 41533-4) [facility] METABOLIC PANEL (NA, K, CL, CO2, GLUCOSE, BUN, CREATININE, CA)2021-03-17 02:12:36 Test Item Value Reference Range Interpretation Comments NA (test code = 131 mmol/L 135-145 L 8946073768) K (test code = 5.2 mmol/L 3.5-5.0 H 6442008025) CL (test code = 93 mmol/L 98-108 L 2248944625) CO2 TOTAL (test code = 32 mmol/L 23-31 H 4434723092) AGAP (test code = 2-16 4344389930) BUN (test code = 16 mg/dL 7-23 6690528664) GLUCOSE (test code = 252 mg/dL 70-110 H 8994118528) CREATININE (test code = 0.62 mg/dL 0.50-1.04 6094857149) CALCIUM (test code = 8.5 mg/dL 8.6-10.6 L 3169892393) eGFR (test code = mL/min/1.73m2 5271908697) KENA (test code = KENA) Association of [...] tests). Lab Interpretation Abnormal (test code = 41390-7) [facility] METABOLIC PANEL (NA, K, CL, CO2, GLUCOSE, BUN, CREATININE, CA)2021-03-17 02:12:36 Test Item Value Reference Range Interpretation Comments NA (test code = 131 mmol/L 135-145 L 3620421660) K (test code = 5.2 mmol/L 3.5-5.0 H 7474525581) CL (test code = 93 mmol/L 98-108 L 8875909417) CO2 TOTAL (test code = 32 mmol/L 23-31 H 1816272061) AGAP (test code = 2-16 6133271315) BUN (test code = 16 mg/dL 7-23 0552473383) GLUCOSE (test code = 252 mg/dL 70-110 H 6078788245) CREATININE (test code = 0.62 mg/dL 0.50-1.04 5573319283) CALCIUM (test code = 8.5 mg/dL 8.6-10.6 L 5811638992) eGFR (test code = mL/min/1.73m2 9695111684) KENA (test code = KENA) Association of [...] tests). Lab Interpretation Abnormal (test code = 62187-0) [facility] [id number] 01:58:17 Test Item Value Reference Range Interpretation Comments LACTIC ACID (test code = 1.21 mmol/L 0.50-2.20 6813052233) Lab Interpretation (test code = Normal 08097-5) [facility] [id number] 01:58:17 Test Item Value Reference Range Interpretation Comments LACTIC ACID (test code = 1.21 mmol/L 0.50-2.20 1522394770) Lab Interpretation (test code = Normal 98425-8) [facility]cos[facility] Hemoglobin (A1C)2021-03-17 01:21:32 Test Item Value Reference Range Interpretation Comments HGB A1C (test code = 8.9 % 4.0-5.7 H 4548-4) KENA (test code = KENA) Reference RangesNormal: <5.7%Prediabetes: 5.7 - 6.4%Diabetes: > 6.5% Lab Interpretation (test Abnormal code = 09442-0) [facility]cos[facility]oglobin (A1C)2021-03-17 01:21:32 Test Item Value Reference Range Interpretation Comments HGB A1C (test code = 8.9 % 4.0-5.7 H 4548-4) KENA (test code = KENA) Reference RangesNormal: <5.7%Prediabetes: 5.7 - 6.4%Diabetes: > 6.5% Lab Interpretation (test Abnormal code = 16796-0) [facility] GLUCOSE (AUTOMATED)2021-03-16 22:38:54 Test Item Value Reference Range Interpretation Comments POCT GLU (test code = 7721703296) 214 mg/dL 70-110 H Lab Interpretation (test code = Abnormal 74993-5) [facility] GLUCOSE (AUTOMATED)2021-03-16 22:38:54 Test Item Value Reference Range Interpretation Comments POCT GLU (test code = 6262561266) 214 mg/dL 70-110 H Lab Interpretation (test code = Abnormal 31117-7) [facility]2021-[facility] 20:56:07 Test Item Value Reference Range Interpretation Comments Procalcitonin (test 0.02 ng/mL <0.07 code = 2740309814) KENA (test code = KENA) INTERPRETATION OF [...] lung abscess/empyema. For further information please refer to:[email or web address] Lab Interpretation Normal (test code = 25471-7) [facility]AL[facility]IN2021-[facility]-08 20:56:07 Test Item Value Reference Range Interpretation Comments Procalcitonin (test 0.02 ng/mL <0.07 code = 6836832689) KENA (test code = KENA) INTERPRETATION OF [...] lung abscess/empyema. For further information please refer to:[email or web address] Lab Interpretation Normal (test code = 08401-5) [facility]XR [facility]ST 1 [id number] 19:22:20 1. ?Mild pulmonary congestion with bibasilar [...] is enlarged accounting for technique.Tracheobronchial and aortic arch calcifications are seen. No acute o sseous abnormality is present. 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 [facility], Radiant Results Inft User- 03/16/2021 2:23 PM CDT EXAM: XR CHEST 1 VWHISTORY: 86 years-old Female; dyspnea . COVID-19 pneumonia confirmed withworsening symptomsTECHNIQUE: Single frontal view of the chest.COMPARISON: Chest radiograph dated 03/17/2019FINDINGS:The lungs are well expanded. Patchy and streaky opacities are seenbilaterally. The previously described 1.9 cm nodular opacity in the leftupper lobe is not as conspicuous. No pleural abnormality is visualized. Thecardiomediastinal silhouette is enlarged accounting for technique.Tracheobronchial and aortic arch calcifications are seen.No acute osseous abnormality is present. 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 Mild pulmonary congestion with bibasilar opacities likely associatedwith confirmed COVID-19 pneumonia.2. Cardiomegaly.3. Interval flattening of the left humeral head, suspected to be relatedto osteonecrosis.Preliminary Report Dictated by Resident: Cliff Holcomb MD., have reviewed this study and agree with the abovereport.[facility] 1 [id number] 19:22:20 1. ?Mild pulmonary congestion with bibasilar [...] is enlarged accounting for technique.Tracheobronchial and aortic arch calcifications are seen. No acute osseous abnormality is present. 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 [facility], Radiant Results Inft User- 03/16/2021 2:23 PM CDT EXAM: XR CHEST 1 VWHISTORY: 86 years-old Female; dyspnea . COVID-19 pneumonia confirmed withworsening symptomsTECHNIQUE: Single frontal view of the chest.COMPARISON: Chest radiograph dated 03/17/2019FINDINGS:The lungs are well expanded. Patchy and streaky opacities are seenbilaterally. The previously described 1.9 cm nodular opacity in the leftupper lobe is not as conspicuous. No pleural abnormality is visualized. Thecardiomediastinal silhouette is enlarged accounting for technique.Tracheobronchial and aortic arch calcifications are seen.No acute osseous abnormality is present. [...] this study and agree with the abovereport. [facility] CenterFERRITIN [id number] 16:45:59 Test Item Value Reference Range Interpretation Comments FERRITIN (test code = 50.9 ng/mL 11.0-264.0 3142312961) KENA (test code = KENA) Biotin has been reported to cause a negative bias, interpret results relative to patient's use of biotin. Lab Interpretation (test Normal code = 57429-7) [facility] CenterFERRITIN [id number] 16:45:59 Test Item Value Reference Range Interpretation Comments FERRITIN (test code = 50.9 ng/mL 11.0-264.0 6000689048) KENA (test code = KENA) Biotin has been reported to cause a negative bias, interpret results relative to patient's use of biotin. Lab Interpretation (test Normal code = 83456-8) [facility] CenterURINALYSIS2021-09-08 16:24:24 Test Item Value Reference Range Interpretation Comments APPEARANCE (test code = Clear Clear 3695949479) COLOR (test code = Yellow Yellow 3913701595) PH (test code = 4.8-8.0 2279868168) SP GRAVITY (test code = 1.003-1.030 9294948768) GLU U QUAL (test code = 500 mg/dL Normal A 5079886836) BLOOD (test code = Negative Negative Interfere nce from 1693881806) ascorbic acid m ay cause false neg ative results. KETONES (test code = Negative Negative 9915767251) PROTEIN (test code = Negative Negative 2887-8) UROBILIN (test code = Normal Normal 7351196283) BILIRUBIN (test code = Negative Negative 8450747096) NITRITE (test code = Negative Negative 7915131569) LEUK TORSTEN (test code = Negative Negative 2401262090) RBC/HPF (test code = See_Comment [Autom ated message] 1049962073) The system [employer] generated this result transmitted ref erence range: 0 - 3 HP F. The reference range was not used to int erpret this result as normal/abnormal . WBC/HPF (test code = <1 See_Comment [Autom ated message] 2894406895) The system [employer] generated this result transmitted ref erence range: 0 - 5 HP F. The reference range was not used to int erpret this result as normal/abnormal . BACTERIA (test code = Negative Negative 8224896730) SQ EPITH (test code = HPF 7491287854) HYAL CAST (test code = See_Comment H [Aut omated message] 3286939296) The system [employer] generated this result transmitted ref erence range: <=2 LPF. The reference range was not used to int erpret this result as normal/abnormal . Lab Interpretation Abnormal (test code = 40103-0) [facility]IN[facility]IS2021-[facility]-08 16:24:24 Test Item Value Reference Range Interpretation Comments APPEARANCE (test code = Clear Clear 0857048966) COLOR (test code = Yellow Yellow 0133373357) PH (test code = 4.8-8.0 4460832604) SP GRAVITY (test code = 1.003-1.030 2230738222) GLU U QUAL (test code = 500 mg/dL Normal A 2466285848) BLOOD (test code = Negative Negative Interfere nce from 4931705174) ascorbic acid m ay cause false neg ative results. KETONES (test code = Negative Negative 6129609130) PROTEIN (test code = Negative Negative 2887-8) UROBILIN (test code = Normal Normal 2495105227) BILIRUBIN (test code = Negative Negative 3664347956) NITRITE (test code = Negative Negative 2487997264) LEUK TORSTEN (test code = Negative Negative 6623832116) RBC/HPF (test code = See_Comment [Autom ated message] 2242404269) The system [employer] generated this result transmitted ref erence range: 0 - 3 HP F. The reference range was not used to int erpret this result as normal/abnormal . WBC/HPF (test code = <1 See_Comment [Autom ated message] 6726699442) The system [employer] generated this result transmitted ref erence range: 0 - 5 HP F. The reference range was not used to int erpret this result as normal/abnormal . BACTERIA (test code = Negative Negative 4112467183) SQ EPITH (test code = HPF 3666278225) HYAL CAST (test code = See_Comment H [Aut omated message] 8866537350) The system [employer] generated this result transmitted ref erence range: <=2 LPF. The reference range was not used to int erpret this result as normal/abnormal . Lab Interpretation Abnormal (test code = 96804-4) [facility] [id number] 16:23:12 Test Item Value Reference Interpretation Comments Range TROPONIN I (test 0.003 ng/mL See_Comment [Automated code = 1736046268) message] The system which generated this result [...] biotin. Lab Interpretation Normal (test code = 45846-9) [facility] [id number] 16:23:12 Test Item Value Reference Interpretation Comments Range TROPONIN I (test 0.003 ng/mL See_Comment [Automated code = 7727945573) message] The system which generated this result [...] biotin. Lab Interpretation Normal (test code = 87391-2) [facility]-TERMINAL [id number] 16:19:59 Test Item Value Reference Range Interpretation Comments NT-proBNP (test code 2200 pg/mL See_Comment H [Autom ated = 7458162198) message] The system which generated this result transmitted reference range : <=450. The reference range was not used to interpret this result as normal/abnormal . KENA (test code = KENA) Biotin has been reported to cause a negative bias, interpret results relative to patient's use of biotin. Lab Interpretation Abnormal (test code = 38009-5) [facility]-TERMINAL [id number] 16:19:59 Test Item Value Reference Range Interpretation Comments NT-proBNP (test code 2200 pg/mL See_Comment H [Autom ated = 3441040625) message] The system which generated this result transmitted reference range : <=450. The reference range was not used to interpret this result as normal/abnormal . KENA (test code = KENA) Biotin has been reported to cause a negative bias, interpret results relative to patient's use of biotin. Lab Interpretation Abnormal (test code = 55893-4) [facility]. METABOLIC PANEL (22165)2021-03-16 16:14:12 Test Item Value Reference Range Interpretation Comments NA (test code = 132 mmol/L 135-145 L 6930841400) K (test code = 4.4 mmol/L 3.5-5.0 5485448597) CL (test code = 92 mmol/L 98-108 L 4509242380) CO2 TOTAL (test code = 30 mmol/L 23-31 0834180703) AGAP (test code = 2-16 4034368634) BUN (test code = 22 mg/dL 7-23 8348497577) GLUCOSE (test code = 303 mg/dL 70-110 H 0530464772) CREATININE (test code = 0.69 mg/dL 0.50-1.04 0844263420) TOTAL BILI (test code = 0.7 mg/dL 0.1-1.7 4376781729) CALCIUM (test code = 8.7 mg/dL 8.6-10.6 3044934968) T PROTEIN (test code = 7.2 g/dL 6.3-8.2 5968619657) ALBUMIN (test code = 4.0 g/dL 3.5-5.0 1286140301) ALK PHOS (test code = 124 U/L 34-122 H 7578262177) ALTv (test code = 19 U/L 5-35 1742-6) AST(SGOT) (test code = 25 U/L 13-40 1850753176) eGFR (test code = mL/min/1.73m2 0125126766) KENA (test code = KENA) Association of [...] tests). Lab Interpretation Abnormal (test code = 32374-3) [facility] METABOLIC PANEL (74646)2021-03-16 16:14:12 Test Item Value Reference Range Interpretation Comments NA (test code = 132 mmol/L 135-145 L 8780694335) K (test code = 4.4 mmol/L 3.5-5.0 3087706299) CL (test code = 92 mmol/L 98-108 L 7693120086) CO2 TOTAL (test code = 30 mmol/L 23-31 5167599891) AGAP (test code = 2-16 9767041651) BUN (test code = 22 mg/dL 7-23 7020503476) GLUCOSE (test code = 303 mg/dL 70-110 H 6306099472) CREATININE (test code = 0.69 mg/dL 0.50-1.04 0748198455) TOTAL BILI (test code = 0.7 mg/dL 0.1-1.9 7267361353) CALCIUM (test code = 8.7 mg/dL 8.6-10.6 0259057718) T PROTEIN (test code = 7.2 g/dL 6.3-8.2 9469213456) ALBUMIN (test code = 4.0 g/dL 3.5-5.0 1781073619) ALK PHOS (test code = 124 U/L 34-122 H 2835518445) ALTv (test code = 19 U/L 5-35 1742-6) AST(SGOT) (test code = 25 U/L 13-40 4400420369) eGFR (test code = mL/min/1.73m2 4999885397) KENA (test code = KENA) Association of [...] tests). Lab Interpretation Abnormal (test code = 20979-5) [facility] CenterLACTATE [id number] 16:12:49 Test Item Value Reference Range Interpretation Comments LDH (test code = 6751571180) 412 U/L 300-600 Lab Interpretation (test code = Normal 14694-1) [facility] CenterLACTATE [id number] 16:12:49 Test Item Value Reference Range Interpretation Comments LDH (test code = 3631796342) 412 U/L 300-600 Lab Interpretation (test code = Normal 46117-8) [facility] CenterD-[id number] 16:06:30 Test Item Value Reference Interpretation Comments Range D-DIMER (test code = See_Comment H [Autom ated 4978249523) message] The system which generated this result [...] diagnosis. Lab Interpretation Abnormal (test code = 92374-3) [facility] CenterD-[id number] 16:06:30 Test Item Value Reference Interpretation Comments Range D-DIMER (test code = See_Comment H [Autom ated 7541532750) message] The system which generated this result [...] diagnosis. Lab Interpretation Abnormal (test code = 19464-6) [facility]IBRINOGEN2021-09-08 16:03:07 Test Item Value Reference Range Interpretation Comments Fibrinogen (test code = 1733456729) 367 mg/dL 214-470 Lab Interpretation (test code = Normal 71802-9) [facility]2021-[facility]-08 16:03:07 Test Item Value Reference Range Interpretation Comments Fibrinogen (test code = 1234117597) 367 mg/dL 214-470 Lab Interpretation (test code = Normal 54371-3) [facility] CenterPROTHROMBIN TIME / [id number] 16:01:50 Test Item Value Reference Range Interpretation Comments PROTIME PATIENT (test See_Comment [Auto mated message] code = 5964-2) The system wh ich generated this result transmitted ref erence range: 12.0 - 1 4.7 Seconds. The re ference range was not u sed to interpret this result as normal/abnor mal. INR (test code = 6301-6) Nor mal INR <1.1; Warfarin Therap eutic range 2.0 to 3. 0 or 2.5 to 3.5, dep ending upon the indica tions. Lab Interpretation (test Normal code = 71445-8) [facility] CenterPROTHROMBIN TIME / [id number] 16:01:50 Test Item Value Reference Range Interpretation Comments PROTIME PATIENT (test See_Comment [Auto mated message] code = 5964-2) The system wh ich generated this result transmitted ref erence range: 12.0 - 1 4.7 Seconds. The re ference range was not u sed to interpret this result as normal/abnor mal. INR (test code = 6301-6) Nor mal INR <1.1; Warfarin Therap eutic range 2.0 to 3. 0 or 2.5 to 3.5, dep ending upon the indica tions. Lab Interpretation (test Normal code = 47049-2) [facility] WITH [id number] 15:55:48 Test Item Value Reference Range Interpretation Comments WBC (test code = See_Comment [Automated 6490-2) message] The sy stem which generated this result transmitted reference range : 4.30 - 11.10 10*3/?L. The reference range was not used to interpret this result as normal/abnormal . RBC (test code = See_Comment [Automated 549-8) message] The sy stem which generated this [...] RDW-SD (test code = 47.3 fL 39.0-49.9 79142-6) RDW-CV (test code = 14.9 % 12.0-15.5 788-0) PLT (test code = See_Comment [Automated 777-3) message] The sy stem which generated this result transmitted reference range : 166 - 358 10*3/ ?L. The reference r ilan was not used to interpret this result as normal/abnormal . MPV (test code = 12.1 fL 9.5-12.9 41310-0) NRBC/100 WBC (test See_Comment [Automat ed code = 8676052136) message] The system which generated this result transmitted reference range : 0.0 - 10.0 /100 WBCs. The refer ence range was not u sed to interpret th is result as normal/abnormal . NRBC x10^3 (test code <0.01 See_Comment [Auto mated = 8929343535) message] The s ystem which generated this result transmitted reference range : 10*3/?L. The reference range was not used to interpret this result as normal/abnormal . GRAN MAT (NEUT) % 81.6 % (test code = 770-8) IMM GRAN % (test code 0.90 % = 0073003989) LYMPH % (test code = 5.4 % 736-9) MONO % (test code = 7.8 % 5905-5) EOS % (test code = 4.1 % 713-8) BASO % (test code = 0.2 % 706-2) GRAN MAT x10^3(ANC) 3.79 10*3/uL 1.88-7.09 (test code = 3294724980) IMM GRAN x10^3 (test 0.04 10*3/uL 0.00-0.06 code = 6433502196) LYMPH x10^3 (test code 0.25 10*3/uL 1.32-3.29 L = 731-0) MONO x10^3 (test code 0.36 10*3/uL 0.33-0.92 = 742-7) EOS x10^3 (test code = 0.19 10*3/uL 0.03-0.39 711-2) BASO x10^3 (test code <0.03 0.01-0.07 = 704-7) Lab Interpretation Abnormal (test code = 07095-8) [facility] WITH [id number] 15:55:48 Test Item Value Reference Range Interpretation [...] RDW-SD (test code = 47.3 fL 39.0-49.9 60004-8) RDW-CV (test code = 14.9 % 12.0-15.5 788-0) PLT (test code = See_Comment [Automated 777-3) message] The sy stem which generated this result transmitted reference range : 166 - 358 10*3/ ?L. The reference r ilan was not used to interpret this result as normal/abnormal . MPV (test code = 12.1 fL 9.5-12.9 56790-6) NRBC/100 WBC (test See_Comment [Automat ed code = 5864869788) message] The system which generated this result transmitted reference range : 0.0 - 10.0 /100 WBCs. The refer ence range was not u sed to interpret th is result as normal/abnormal . NRBC x10^3 (test code <0.01 See_Comment [Auto mated = 1646371540) message] The s ystem which generated this result transmitted reference range : 10*3/?L. The reference range was not used to interpret this result as normal/abnormal . GRAN MAT (NEUT) % 81.6 % (test code = 770-8) IMM GRAN % (test code 0.90 % = 1750773548) LYMPH % (test code = 5.4 % 736-9) MONO % (test code = 7.8 % 5905-5) EOS % (test code = 4.1 % 713-8) BASO % (test code = 0.2 % 706-2) GRAN MAT x10^3(ANC) 3.79 10*3/uL 1.88-7.09 (test code = 5000010954) IMM GRAN x10^3 (test 0.04 10*3/uL 0.00-0.06 code = 9512173980) LYMPH x10^3 (test code 0.25 10*3/uL 1.32-3.29 L = 731-0) MONO x10^3 (test code 0.36 10*3/uL 0.33-0.92 = 742-7) EOS x10^3 (test code = 0.19 10*3/uL 0.03-0.39 711-2) BASO x10^3 (test code <0.03 0.01-0.07 = 704-7) Lab Interpretation Abnormal (test code = 58598-6) [facility] CenterLalaic Acid Whole [id number] 15:31:08 Test Item Value Reference Range Interpretation Comments LACTIC ACID (test code = 2.41 mmol/L 0.50-2.20 H 8864069501) Lab Interpretation (test code = Abnormal 20785-5) [facility] CenterLactic Acid Whole [id number] 15:31:08 Test Item Value Reference Range Interpretation Comments LACTIC ACID (test code = 2.41 mmol/L 0.50-2.20 H 8903503367) Lab Interpretation (test code = Abnormal 26558-7) [facility] WITH [id number] 15:31:14 Test Item Value Reference Range Interpretation Comments WBC (test code = See_Comment [Automated 1890-2) message] The sy stem which generated this result transmitted reference range : 4.30 - 11.10 10*3/?L. The reference range was not used to interpret this result as normal/abnormal . RBC (test code = See_Comment [Automated 749-8) message] The sy stem which generated this [...] RDW-SD (test code = 46.8 fL 39.0-49.9 00082-5) RDW-CV (test code = 14.6 % 12.0-15.5 788-0) PLT (test code = See_Comment [Automated 777-3) message] The sy stem which generated this result transmitted reference range : 166 - 358 10*3/ ?L. The reference r ilan was not used to interpret this result as normal/abnormal . MPV (test code = 10.8 fL 9.5-12.9 77535-0) NRBC/100 WBC (test See_Comment [Automat ed code = 4924876862) message] The system which generated this result transmitted reference range : 0.0 - 10.0 /100 WBCs. The refer ence range was not u sed to interpret th is result as normal/abnormal . NRBC x10^3 (test code <0.01 See_Comment [Auto mated = 8090764126) message] The s ystem which generated this result transmitted reference range : 10*3/?L. The reference range was not used to interpret this result as normal/abnormal . GRAN MAT (NEUT) % 81.3 % (test code = 770-8) IMM GRAN % (test code 0.50 % = 1901031045) LYMPH % (test code = 5.9 % 736-9) MONO % (test code = 9.1 % 5905-5) EOS % (test code = 2.8 % 713-8) BASO % (test code = 0.4 % 706-2) GRAN MAT x10^3(ANC) 6.04 10*3/uL 1.88-7.09 (test code = 6046590678) IMM GRAN x10^3 (test 0.04 10*3/uL 0.00-0.06 code = 9974892287) LYMPH x10^3 (test code 0.44 10*3/uL 1.32-3.29 L = 731-0) MONO x10^3 (test code 0.68 10*3/uL 0.33-0.92 = 742-7) EOS x10^3 (test code = 0.21 10*3/uL 0.03-0.39 711-2) BASO x10^3 (test code 0.03 10*3/uL 0.01-0.07 = 704-7) Lab Interpretation Abnormal (test code = 13867-3) [facility] BRAIN WO [id number] 20:17:42 No acute intracranial abnormality Background mild [...] signal is present the mastoid air cells. Mildinflamm atory changes are seen in the ethmoidal air cells. The T2 flow voidsfor the major intracranial vessels are unremarkable.IMPRESSIONNo acute intracranial abnormalityBackground mild ischemic small vessel diseaseUnHCA Houston Healthcare Medical CenterXR KNEE 3 VW [id number] 20:52:52 Healing lateral femoral condyle periprosthetic fracture. EXAM: XR KNEE 3 VW RIGHT HISTORY: pain COMP ARISON: 06/24/2019 FINDINGS: Changes of total knee arthroplasty [...] small joint effusion.IMPRESSIONHealing lateral femoral condyle periprosthetic fracture.[facility] GLUCOSE (AUTOMATED)2019-03-18 16:33:00 Test Item Value Reference Range Interpretation Comments POCT GLU (test code = 5648011587) 260 mg/dL 70-110 H Lab Interpretation (test code = Abnormal 86337-5) [facility] GLUCOSE (AUTOMATED)2019-03-18 12:42:00 Test Item Value Reference Range Interpretation Comments POCT GLU (test code = 3372007277) 114 mg/dL 70-110 H Lab Interpretation (test code = Abnormal 23861-5) [facility] METABOLIC PANEL (NA, K, CL, CO2, GLUCOSE, BUN, CREATININE, CA)2019-03-18 10:55:00 Test Item Value Reference Range Interpretation Comments NA (test code = 135 mmol/L 135-145 3207200269) K (test code = 4.8 mmol/L 3.5-5 1273732996) CL (test code = 88 mmol/L 98-108 L 2421815528) CO2 TOTAL (test code = 38 mmol/L 23-31 H 1171514307) AGAP (test code = 2-16 5272002451) BUN (test code = 28 mg/dL 7-23 H 3592976062) GLUCOSE (test code = 112 mg/dL 70-110 H 1027425100) CREATININE (test code = 0.73 mg/dL 0.5-1.04 2567374151) CALCIUM (test code = 9.0 mg/dL 8.6-10.6 3376044162) eGFR Calculation mL/min/1.73m2 (Non-) (test code = 6587275425) eGFR Calculation mL/min/1.73m2 () (test code = 9445241444) KENA (test code = KENA) Association of Glomerular Filtration Rate (GFR) and Staging of Kidney Disease*+ + + +| GFR (mL/min/1.73 m2)?| With Kidney Damage?|?Without Kidney Damage+ --------+ --------+ +|?>90?|?S cornelius one?|? Normal?+ ---------+ ---------+ +|?60-89? |?Stage two?|? [...] tests). Lab Interpretation Abnormal (test code = 09785-1) [facility] GLUCOSE (AUTOMATED)2019-03-18 06:47:00 Test Item Value Reference Range Interpretation Comments POCT GLU (test code = 1386040008) 150 mg/dL 70-110 H Lab Interpretation (test code = Abnormal 29306-7) [facility] 02:30:00 Test Item Value Reference Range Interpretation Comments POCT GLU (test code = 6433870381) 318 mg/dL 70-110 H Lab Interpretation (test code = Abnormal 06682-2) [facility] [id number] 22:58:57 Mild pulmonary vascular congestion and cardiomegaly. [...] VW CLINICAL INDICATION: PICC LINE VERIFICATION COMPARISON: 03/14/2019FINDINGS: A right-sided PICC line terminates in the [...] Results Inft User - 03/17/2019 5:59 PM CDTPROCEDURE: XRCHEST 1 VWCLINICAL INDICATION: PICC LINE VERIFICATION COMPARISON: 03/14/2019FINDINGS:A right-sided PICC line terminates in the SVC.Bilateral reticulonodular opacities are present, similar to priorexaminations. [...] of atypical infection in the proper clinical setting.Theright-sided PICC line terminates in the SVC.I, Soni Baird MD., have reviewed this study and agree with the abovereport.[facility] GLUCOSE (AUTOMATED)2019-03-17 22:02:00 Test Item Value Reference Range Interpretation Comments POCT GLU (test code = 2826735469) 274 mg/dL 70-110 H Lab Interpretation (test code = Abnormal 05358-0) [facility] GLUCOSE (AUTOMATED)2019-03-17 16:23:00 Test Item Value Reference Range Interpretation Comments POCT GLU (test code = 6652842239) 221 mg/dL 70-110 H Lab Interpretation (test code = Abnormal 06768-5) [facility] (NA, K, CL, CO2, GLUCOSE, BUN, CREATININE, CA)2019-03-17 13:24:00 Test Item Value Reference Range Interpretation Comments NA (test code = 133 mmol/L 135-145 L 5695021995) K (test code = 4.2 mmol/L 3.5-5 1506088373) CL (test code = 85 mmol/L 98-108 L 3157960781) CO2 TOTAL (test code = 40 mmol/L 23-31 H 0807799554) AGAP (test code = 2-16 5535145514) BUN (test code = 27 mg/dL 7-23 H 0940808656) GLUCOSE (test code = 79 mg/dL 70-110 5586538143) CREATININE (test code = 0.67 mg/dL 0.5-1.04 2776870504) CALCIUM (test code = 9.4 mg/dL 8.6-10.6 8548254345) eGFR Calculation mL/min/1.73m2 (Non-) (test code = 5164462748) eGFR Calculation mL/min/1.73m2 () (test code = 1850415711) KENA (test code = KENA) Association of [...] tests). Lab Interpretation Abnormal (test code = 51968-9) [facility] 12:56:00 Test Item Value Reference Range Interpretation Comments POCT GLU (test code = 5617813833) 72 mg/dL 70-110 Lab Interpretation (test code = Normal 82245-9) [facility] WITH [id number] 12:49:00 Test Item Value Reference Range Interpretation Comments WBC (test code = See_Comment [Automated 1949-2) message] The sy stem which generated this result transmitted reference range : 4.30 - 11.10 10*3/?L. The reference range was not used to interpret this result as normal/abnormal . RBC (test code = See_Comment [Automated 249-8) message] The sy stem which generated this [...] RDW-SD (test code = 43.0 fL 39-49.9 75739-6) RDW-CV (test code = 13.3 % 12-15.5 788-0) PLT (test code = See_Comment [Automated 777-3) message] The sy stem which generated this result transmitted reference range : 166 - 358 10*3/ ?L. The reference r ilan was not used to interpret this result as normal/abnormal . MPV (test code = 11.3 fL 9.5-12.9 23616-8) NRBC/100 WBC (test See_Comment [Automat ed code = 5235355573) message] The system which generated this result transmitted reference range : 0.0 - 10.0 /100 WBCs. The refer ence range was not u sed to interpret th is result as normal/abnormal . NRBC x10^3 (test code <0.01 See_Comment [Auto mated = 8828820577) message] The s ystem which generated this result transmitted reference range : 10*3/?L. The reference range was not used to interpret this result as normal/abnormal . GRAN MAT (NEUT) % 77.5 % (test code = 770-8) IMM GRAN % (test code 1.50 % = 1257606475) LYMPH % (test code = 6.7 % 736-9) MONO % (test code = 10.8 % 5905-5) EOS % (test code = 3.2 % 713-8) BASO % (test code = 0.3 % 706-2) GRAN MAT x10^3(ANC) 5.12 10*3/uL 1.88-7.09 (test code = 2947865493) IMM GRAN x10^3 (test 0.10 10*3/uL 0-0.06 H code = 1208024832) LYMPH x10^3 (test code 0.44 10*3/uL 1.32-3.29 L = 731-0) MONO x10^3 (test code 0.71 10*3/uL 0.33-0.92 = 742-7) EOS x10^3 (test code = 0.21 10*3/uL 0.03-0.39 711-2) BASO x10^3 (test code <0.03 0.01-0.07 = 704-7) Lab Interpretation Abnormal (test code = 73342-1) [facility] GLUCOSE (AUTOMATED)2019-03-17 01:50:00 Test Item Value Reference Range Interpretation Comments POCT GLU (test code = 7868623649) 256 mg/dL 70-110 H Lab Interpretation (test code = Abnormal 29221-8) [facility] GLUCOSE (AUTOMATED)2019-03-16 21:45:00 Test Item Value Reference Range Interpretation Comments POCT GLU (test code = 0379263184) 162 mg/dL 70-110 H Lab Interpretation (test code = Abnormal 33503-3) [facility] GLUCOSE (AUTOMATED)2019-03-16 16:28:00 Test Item Value Reference Range Interpretation Comments POCT GLU (test code = 9592972745) 269 mg/dL 70-110 H Lab Interpretation (test code = Abnormal 68124-9) [facility]W [id number] 16:17:55 Diffuse mild soft tissue swelling without acute bony abnormalities. Midfoot and moderate osteoarthritis. Diffuse osteopenia IMacy MD., have reviewed this study and agree with the abovereport.* * * * * * * * ORIGINAL REPORT * * * * * * * *EXAM: XR FOOT 3+ VW RIGHT HISTORY: pain COMPARISON:None. FINDINGS: Radiographs of the right foot demonstrate mild diffuse soft tissueswelling. Moderatemidfoot osteoarthritic changes are present. Marginalerosion is lateral on the medial aspect of the navicular bone, bestvisualized on the oblique views. 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 [facility], Radiant Results Inft User - 03/16/2019 11:18 AM CDT* * * * * * * * ORIGINAL REPORT * * * * * * * *EXAM: XR FOOT 3+ VW RIGHTHISTORY: pain COMPARISON: None.FINDINGS: Radiographs of the rightfoot demonstrate mild diffuse soft tissueswelling. Moderate midfoot osteoarthritic changes are present. Marginalerosion is lateral on the medial aspect of the navicular bone, bestvisualized on the oblique views. 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.Osteopenia is seen.IMPRESSIONDiffuse mild soft tissue swelling without acute bony abnormalities.Midfoot and moderate osteoarthritis.Diffuse osteopeniaI, Karthik Thomas MD., have reviewed this study and agree with the abovereport.[facility] GLUCOSE (AUTOMATED)2019-03-16 12:39:00 Test Item Value Reference Range Interpretation Comments POCT GLU (test code = 8914210284) 113 mg/dL 70-110 H Lab Interpretation (test code = Abnormal 40115-3) [facility] GLUCOSE (AUTOMATED)2019-03-16 01:28:00 Test Item Value Reference Range Interpretation Comments POCT GLU (test code = 4025992914) 201 mg/dL 70-110 H Lab Interpretation (test code = Abnormal 15417-4) [facility] GLUCOSE (AUTOMATED)2019-03-15 21:56:00 Test Item Value Reference Range Interpretation Comments POCT GLU (test code = 8578142117) 119 mg/dL 70-110 H Lab Interpretation (test code = Abnormal 56081-3) [facility] GLUCOSE (AUTOMATED)2019-03-15 21:56:00 Test Item Value Reference Range Interpretation Comments POCT GLU (test code = 4484790764) 184 mg/dL 70-110 H Lab Interpretation (test code = Abnormal 05946-8) [facility] GLUCOSE (AUTOMATED)2019-03-15 13:58:00 Test Item Value Reference Range Interpretation Comments POCT GLU (test code = 6239286234) 57 mg/dL 70-110 L Lab Interpretation (test code = Abnormal 34411-7) [facility] GLUCOSE (AUTOMATED)2019-03-15 13:58:00 Test Item Value Reference Range Interpretation Comments POCT GLU (test code = 4620696465) 82 mg/dL 70-110 Lab Interpretation (test code = Normal 06293-0) [facility] GLUCOSE (AUTOMATED)2019-03-15 00:47:00 Test Item Value Reference Range Interpretation Comments POCT GLU (test code = 5794055170) 293 mg/dL 70-110 H Lab Interpretation (test code = Abnormal 88637-2) [facility] GLUCOSE (AUTOMATED)2019-03-14 21:38:00 Test Item Value Reference Range Interpretation Comments POCT GLU (test code = 3927974260) 256 mg/dL 70-110 H Lab Interpretation (test code = Abnormal 32110-4) [facility] GLUCOSE (AUTOMATED)2019-03-14 17:20:00 Test Item Value Reference Range Interpretation Comments POCT GLU (test code = 9621195622) 149 mg/dL 70-110 H Lab Interpretation (test code = Abnormal 96783-6) [facility] GLUCOSE (AUTOMATED)2019-03-14 12:50:00 Test Item Value Reference Range Interpretation Comments POCT GLU (test code = 9133450144) 100 mg/dL 70-110 Lab Interpretation (test code = Normal 31169-4) [facility] [id number] 07:32:02Impression: Moderate cardiomegaly without acute pulmonary process. RL: 460 AFC: [id number]: Hypoxia Comparison: None Findings: Single AP view [...] intact.IMPRESSIONImpression:Moderate cardiomegaly without acute pulmonary process.RL: 460AFC: [id number] 2019-03-14 05:25:48 No acute bony abnormality. Severe left knee osteoarthrosis with chondrocalcinosis and moderate volumeknee joint effusion. Osteopenia. IAdeola MD., have reviewed this study and agree with the abovereport.EXAM: XR KNEE 3 VW LEFT HISTORY: Nontraumatic swelling and pain COMPARISON: CT of the leftknee on 07/08/2018 FINDINGS: Radiographs of the left knee demonstrate no acute fracture or dislocation. Diffuse bone demineralization is noted. Severe left knee osteoarthrosis ismanifested by severe tricompartmental joint space narrowing, subchondralsclerosis, osteophytosis, and bilateral meniscal lindsay drocalcinosis.Vascular calcifications, left knee soft tissue swelling and a small tomoderate suprapatellar effusion are present. [facility], Radiant Results Inft User - 03/14/2019 12:25 AM CDTEXAM: XR KNEE 3VW LEFTHISTORY: Nontraumatic swelling and pain COMPARISON: CT of the left knee on 07/08/2018 FINDINGS :Radiographs of the left knee demonstrate no acute [...] reviewed this study and agree with the abovereport.[facility] GLUCOSE (AUTOMATED)2019-03-14 01:34:00 Test Item Value Reference Range Interpretation Comments POCT GLU (test code = 8052628559) 232 mg/dL 70-110 H Lab Interpretation (test code = Abnormal 78755-9) [facility] GLUCOSE (AUTOMATED)2019-03-13 21:12:00 Test Item Value Reference Range Interpretation Comments POCT GLU (test code = 2483291020) 228 mg/dL 70-110 H Lab Interpretation (test code = Abnormal 00048-6) [facility] GLUCOSE (AUTOMATED)2019-03-13 16:52:00 Test Item Value Reference Range Interpretation Comments POCT GLU (test code = 2758388250) 162 mg/dL 70-110 H Lab Interpretation (test code = Abnormal 86082-0) [facility] [id number] 13:44:00 Test Item Value Reference Range Interpretation Comments Ampicillin (test code = 4: Susceptible 47270-1) Cefazolin (test code = <=4: Susceptible 97553-3) Ceftriaxone (test code = <=1: Susceptible 75851-2) Ertapenem (test code = <=0.5: Susceptible 65613-0) Gentamicin (test code = <=1: Susceptible 61145-8) Levofloxacin (test code = <=0.12: Susceptible 33789-5) Nitrofurantoin (test code <=16: Susceptible = 77938-4) Piperacillin/Tazobactam <=4: Susceptible (test code = 70242-3) Trimethoprim/Sulfamethoxa <=20: Susceptible zole (test code = 40080-2) Nitrofurantoin is not recommended for use in treating pyelonephritis or systemic disease.[facility] CULTURE [id number] 13:09:00 Test Item Value Reference Interpretation Comments Range Blood Culture positive, No growth AA Previous Culture-Aerobic identification to prelimi nary (test code = follow verified result 64926-2) was Culture In Progress on 03/11/2019 at 084 4 CDT Blood Culture positive, No growth AA Previous Culture-Anaerobic identification to preli minary (test code = follow verified result 10104-1) was Culture In Progress on 03/10/2019 at 230 1 CDT Lab Interpretation Abnormal (test code = 42031-9) [facility] CULTURE [id number] 13:09:00 Test Item Value Reference Range Interpretation Comments Gram stain Isolated from This is an imelda ended (test code = aerobic bottle report. These results 664-3) Gram negative rods have been appended to a previously preliminary nanette ified report. [facility] CULTURE [id number] 13:07:00 Test Item Value Reference Interpretation Comments Range Blood Culture positive, No growth AA Previous Culture-Aerobic identification to prelimi nary (test code = follow verified result 94139-8) was Culture In Progress on 03/10/2019 at 230 1 CDT Blood Culture positive, No growth AA Previous Culture-Anaerobic identification to preli minary (test code = follow verified result 70896-7) was Culture In Progress on 03/11/2019 at 084 6 CDT Lab Interpretation Abnormal (test code = 35428-2) [facility]2019-03-13 12:32:00 Test Item Value Reference Range Interpretation Comments POCT GLU (test code = 1385812996) 136 mg/dL 70-110 H Lab Interpretation (test code = Abnormal 62555-5) [facility] METABOLIC PANEL (NA, K, CL, CO2, GLUCOSE, BUN, CREATININE, CA)2019-03-13 11:26:00 Test Item Value Reference Range Interpretation Comments NA (test code = 130 mmol/L 135-145 L 3950535479) K (test code = 4.2 mmol/L 3.5-5 0001382662) CL (test code = 87 mmol/L 98-108 L 0928938071) CO2 TOTAL (test code = 37 mmol/L 23-31 H 0375842768) AGAP (test code = 2-16 2040453478) BUN (test code = 18 mg/dL 7-23 4310510981) GLUCOSE (test code = 141 mg/dL 70-110 H 5084782153) CREATININE (test code = 0.65 mg/dL 0.5-1.04 0720130280) CALCIUM (test code = 9.0 mg/dL 8.6-10.6 5242059875) eGFR Calculation mL/min/1.73m2 (Non-) (test code = 0410667497) eGFR Calculation mL/min/1.73m2 () (test code = 2936074626) KENA (test code = KENA) Association of [...] tests). Lab Interpretation Abnormal (test code = 11842-6) [facility] WITH [id number] 11:20:00 Test Item Value Reference Range Interpretation [...] RDW-SD (test code = 42.6 fL 39-49.9 22915-7) RDW-CV (test code = 13.3 % 12-15.5 788-0) PLT (test code = See_Comment [Automated 777-3) message] The sy stem which generated this result transmitted reference range : 166 - 358 10*3/ ?L. The reference r ilan was not used to interpret this result as normal/abnormal . MPV (test code = 12.1 fL 9.5-12.9 63291-2) NRBC/100 WBC (test See_Comment [Automat ed code = 4747216991) message] The system which generated this result transmitted reference range : 0.0 - 10.0 /100 WBCs. The refer ence range was not u sed to interpret th is result as normal/abnormal . NRBC x10^3 (test code <0.01 See_Comment [Auto mated = 6732781861) message] The s ystem which generated this result transmitted reference range : 10*3/?L. The reference range was not used to interpret this result as normal/abnormal . GRAN MAT (NEUT) % 77.9 % (test code = 770-8) IMM GRAN % (test code 0.50 % = 8429951994) LYMPH % (test code = 7.8 % 736-9) MONO % (test code = 10.7 % 5905-5) EOS % (test code = 2.8 % 713-8) BASO % (test code = 0.3 % 706-2) GRAN MAT x10^3(ANC) 4.67 10*3/uL 1.88-7.09 (test code = 2038042693) IMM GRAN x10^3 (test 0.03 10*3/uL 0-0.06 code = 3202538004) LYMPH x10^3 (test code 0.47 10*3/uL 1.32-3.29 L = 731-0) MONO x10^3 (test code 0.64 10*3/uL 0.33-0.92 = 742-7) EOS x10^3 (test code = 0.17 10*3/uL 0.03-0.39 711-2) BASO x10^3 (test code <0.03 0.01-0.07 = 704-7) Lab Interpretation Abnormal (test code = 77190-0) [facility] GLUCOSE (AUTOMATED)2019-03-13 01:38:00 Test Item Value Reference Range Interpretation Comments POCT GLU (test code = 3475534438) 232 mg/dL 70-110 H Lab Interpretation (test code = Abnormal 81918-6) [facility] GLUCOSE (AUTOMATED)2019-03-12 21:07:00 Test Item Value Reference Range Interpretation Comments POCT GLU (test code = 0733497724) 220 mg/dL 70-110 H Lab Interpretation (test code = Abnormal 23542-6) [facility] GLUCOSE (AUTOMATED)2019-03-12 16:39:00 Test Item Value Reference Range Interpretation Comments POCT GLU (test code = 8394380201) 198 mg/dL 70-110 H Lab Interpretation (test code = Abnormal 86107-8) [facility] GLUCOSE (AUTOMATED)2019-03-12 12:45:00 Test Item Value Reference Range Interpretation Comments POCT GLU (test code = 9003276951) 65 mg/dL 70-110 L Lab Interpretation (test code = Abnormal 89951-6) [facility] GLUCOSE (AUTOMATED)2019-03-12 02:06:00 Test Item Value Reference Range Interpretation Comments POCT GLU (test code = 5868700828) 114 mg/dL 70-110 H Lab Interpretation (test code = Abnormal 26959-6) [facility] NE[facility]LO[facility] PATHOGENS DNA [id number] 00:57:00 Test Item Value Reference Range Interpretation Comments Escherichia coli (test Positive Negative A code = 64059-7) KENA (test code = KENA) See blood culture result for additional information.?Testing included eight identification and six resistance marker targets. Lab Interpretation Abnormal (test code = 14524-8) [facility] GLUCOSE (AUTOMATED)2019-03-11 21:32:00 Test Item Value Reference Range Interpretation Comments POCT GLU (test code = 9380458346) 100 mg/dL 70-110 Lab Interpretation (test code = Normal 96183-0) [facility] (A1C)2019-03-11 19:23:00 Test Item [...] Indicated Lab Interpretation Abnormal (test code = 12339-9) [facility] GLUCOSE (AUTOMATED)2019-03-11 17:05:00 Test Item Value Reference Range Interpretation Comments POCT GLU (test code = 4632939135) 102 mg/dL 70-110 Lab Interpretation (test code = Normal 21250-5) [facility] (NA, K, CL, CO2, GLUCOSE, BUN, CREATININE, CA)2019-03-11 13:04:00 Test Item Value Reference Range Interpretation Comments NA (test code = 141 mmol/L 135-145 2569672919) K (test code = 4.2 mmol/L 3.5-5 8758190411) CL (test code = 103 mmol/L 98-108 5858123565) CO2 TOTAL (test code = 32 mmol/L 23-31 H 1289927660) AGAP (test code = 2-16 3968564129) BUN (test code = 23 mg/dL 7-23 7100917075) GLUCOSE (test code = 84 mg/dL 70-110 9845931040) CREATININE (test code = 0.82 mg/dL 0.5-1.04 6993266150) CALCIUM (test code = 8.6 mg/dL 8.6-10.6 0903763903) eGFR Calculation mL/min/1.73m2 (Non-) (test code = 5722427215) eGFR Calculation mL/min/1.73m2 () (test code = 9500653910) KENA (test code = KENA) Association of [...] tests). Lab Interpretation Abnormal (test code = 04580-8) [facility]2019-[facility]-11 12:58:00 Test Item Value Reference Range Interpretation Comments POCT GLU (test code = 8564816344) 73 mg/dL 70-110 Lab Interpretation (test code = Normal 91896-9) [facility] WITH [id number] 12:04:00 Test Item Value Reference Range Interpretation [...] RDW-SD (test code = 47.1 fL 39-49.9 86127-5) RDW-CV (test code = 14.2 % 12-15.5 788-0) PLT (test code = See_Comment L [Automated 777-3) message] The sy stem which generated this result transmitted reference range : 166 - 358 10*3/ ?L. The reference r ilan was not used to interpret this result as normal/abnormal . MPV (test code = 12.7 fL 9.5-12.9 36329-7) NRBC/100 WBC (test See_Comment [Automat ed code = 4013292997) message] The system which generated this result transmitted reference range : 0.0 - 10.0 /100 WBCs. The refer ence range was not u sed to interpret th is result as normal/abnormal . NRBC x10^3 (test code <0.01 See_Comment [Auto mated = 7989438078) message] The s ystem which generated this result transmitted reference range : 10*3/?L. The reference range was not used to interpret this result as normal/abnormal . GRAN MAT (NEUT) % 85.3 % (test code = 770-8) IMM GRAN % (test code 0.40 % = 6689978438) LYMPH % (test code = 6.0 % 736-9) MONO % (test code = 7.9 % 5905-5) EOS % (test code = 0.2 % 713-8) BASO % (test code = 0.2 % 706-2) GRAN MAT x10^3(ANC) 8.01 10*3/uL 1.88-7.09 H (test code = 1361456304) IMM GRAN x10^3 (test 0.04 10*3/uL 0-0.06 code = 2742184508) LYMPH x10^3 (test code 0.56 10*3/uL 1.32-3.29 L = 731-0) MONO x10^3 (test code 0.74 10*3/uL 0.33-0.92 = 742-7) EOS x10^3 (test code = <0.03 0.03-0.39 L 711-2) BASO x10^3 (test code <0.03 0.01-0.07 = 704-7) Lab Interpretation Abnormal (test code = 86484-2) [facility] 04:01:00 Test Item Value Reference Range Interpretation Comments POCT GLU (test code = 128 mg/dL 70-110 H 5215619804) KEAN (test code = KENA) Notified Provider Lab Interpretation (test Abnormal code = 09412-4) [facility] [id number] 02:45:38 Cardiomegaly, bilateral mild pulmonary edema. No parenchymal consolidationis appreciated. IMaryuri MD., have reviewed this study and agree with the abovereport. EXAM: XR CHEST 1 VW HISTORY: fever in adult COMPARISON: CT chest on 10/30/2018 and radiographs on 10/29/2018. FINDINGS: Bilateral mild pulmonary edema is again noted. No pleural effusion or pneumothorax. The heart is enlarged, unchanged. The aorta is tortuous and partiallycalcified. No acute osseous abnormality is identified. 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 Metallichardware are seen in the right humeral head. Prior left distal clavicleresection. [facility], Radiant Results Inft User - 03/10/2019 9:47 PM CDTEXAM: XR CHEST 1 VWHISTORY: fever in adult COMPARISON: CT chest on 10/30/2018 and radiographs on 10/29/2018.FINDINGS:Bilateral mild pulmonary edema is again noted.No pleural effusion or pneumothorax. The heart is enlarged, unchanged. The aorta is tortuous and partiallycalcified.No acute osseous abnormality is identified. 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 Metallichardware are seen in the right humeral head. Prior left distal clavicleresection.IMPRESSIONCardiomegaly, bilateral mild pulmonary edema. No parenchymal consolidationis appreciated.I, Rachel Shaikh MD., have reviewed this study and agree with the abovereport.[facility] 2019-[facility] 02:12:00 Test Item Value Reference Range Interpretation Comments DIGOXIN (test code = 1.0 ng/mL 0.8-1.6 8496888540) KENA (test code = KENA) Arrythmias:?1.5 - 2.0 ng/mLToxic Range:? Greater than or equal to 2.4 ng/mL Lab Interpretation (test Normal code = 68923-3) [facility] CenterTroponin [id number] 01:22:00 Test Item Value Reference Range Interpretation Comments TROPONIN I (test <0.012 See_Comment [Automated code = 6046608105) message] The system which generated this result [...] ? Lab Interpretation Normal (test code = 54642-2) [facility] (NA, K, CL, CO2, GLUCOSE, BUN, CREATININE, CA)2019-03-11 01:11:00 Test Item Value Reference Range Interpretation Comments NA (test code = 138 mmol/L 135-145 1021802530) K (test code = 5.2 mmol/L 3.5-5 H 4175029867) CL (test code = 97 mmol/L 98-108 L 9261013682) CO2 TOTAL (test code = 29 mmol/L 23-31 5962314166) AGAP (test code = 2-16 0156103027) BUN (test code = 26 mg/dL 7-23 H 0825936898) GLUCOSE (test code = 259 mg/dL 70-110 H 0589808940) CREATININE (test code = 0.78 mg/dL 0.5-1.04 8551261952) CALCIUM (test code = 9.1 mg/dL 8.6-10.6 3600872809) eGFR Calculation mL/min/1.73m2 (Non-) (test code = 8937018791) eGFR Calculation mL/min/1.73m2 () (test code = 3161709340) KENA (test code = KENA) Association of [...] tests). Lab Interpretation Abnormal (test code = 83676-6) [facility] (ALB, T.PRO, BILI T, BU/BC, ALT, AST, ALK PHOS)2019-03-11 01:11:00 Test Item Value Reference Range Interpretation Comments TOTAL BILI (test code = 5970543253) 0.6 mg/dL 0.1-1.1 BILI UNCON (test code = 7428925227) 0.4 mg/dL 0.1-1.1 BILI CONJ (test code = 5590550010) 0.0 mg/dL 0-0.3 T PROTEIN (test code = 8250936759) 7.6 g/dL 6.3-8.2 ALBUMIN (test code = 4830272884) 4.5 g/dL 3.5-5 ALK PHOS (test code = 8524395850) 95 U/L 34-122 ALT(SGPT) (test code = 6135382719) 21 U/L 9-51 AST(SGOT) (test code = 5093684697) 23 U/L 13-40 Lab Interpretation (test code = Normal 69412-9) [facility] [id number] 01:11:00 Test Item Value Reference Range Interpretation Comments LIPASE (test code = 7264600173) 25 U/L 0-220 Lab Interpretation (test code = Normal 34428-9) [facility] 01:07:00 Test Item Value Reference Range Interpretation Comments APPEARANCE (test code Slightly Cloudy Clear A = 4252672729) COLOR (test code = Yellow Yellow 8489668075) PH (test code = 4.8-8.0 1786928830) SP GRAVITY (test code 1.003-1.030 = 0668618226) GLU U QUAL (test code >1000 mg/dL Negative A = 9645204782) BLOOD (test code = Large Negative A 3012054105) KETONES (test code = Negative Negative 2127423429) PROTEIN (test code = 100 mg/dL Negative A 2887-8) UROBILIN (test code = 0.2 mg/dL See_Comment [Auto mated 3367219823) message] The system which generated this result transmit rayna reference range : 0-1.0 mg/dL. Th e reference range was not used to interpret this result as normal/abnormal . BILIRUBIN (test code Negative Negative = 5503739696) NITRITE (test code = Positive Negative A 9467670186) LEUK TORSTEN (test code Small Negative A = 4970131750) RBC/HPF (test code = See_Comment H [Autom ated 5801278907) message] The system which generated this result transmit rayna reference range : 0 - 3 HPF. The reference range was not used to interpret this result as normal/abnormal . WBC/HPF (test code = >182 See_Comment H [Autom ated 7203178261) message] The system which generated this result transmit rayna reference range : 0 - 5 HPF. The reference range was not used to interpret this result as normal/abnormal . BACTERIA (test code = Many Negative A 4218196165) AMORPHOUS (test code Moderate HPF = 3526158048) Lab Interpretation Abnormal (test code = 76938-0) [facility] WITH [id number] 00:56:00 Test Item Value Reference Range Interpretation [...] RDW-SD (test code = 45.3 fL 39-49.9 44514-8) RDW-CV (test code = 14.1 % 12-15.5 788-0) PLT (test code = See_Comment [Automated 777-3) message] The sy stem which generated this result transmitted reference range : 166 - 358 10*3/ ?L. The reference r ilan was not used to interpret this result as normal/abnormal . MPV (test code = 12.6 fL 9.5-12.9 30809-8) NRBC/100 WBC (test See_Comment [Automat ed code = 9908448220) message] The system which generated this result transmitted reference range : 0.0 - 10.0 /100 WBCs. The refer ence range was not u sed to interpret th is result as normal/abnormal . NRBC x10^3 (test code <0.01 See_Comment [Auto mated = 9073761590) message] The s ystem which generated this result transmitted reference range : 10*3/?L. The reference range was not used to interpret this result as normal/abnormal . GRAN MAT (NEUT) % 90.0 % (test code = 770-8) IMM GRAN % (test code 0.30 % = 7672470919) LYMPH % (test code = 4.1 % 736-9) MONO % (test code = 3.9 % 5905-5) EOS % (test code = 1.5 % 713-8) BASO % (test code = 0.2 % 706-2) GRAN MAT x10^3(ANC) 8.35 10*3/uL 1.88-7.09 H (test code = 5768808258) IMM GRAN x10^3 (test 0.03 10*3/uL 0-0.06 code = 8592393018) LYMPH x10^3 (test code 0.38 10*3/uL 1.32-3.29 L = 731-0) MONO x10^3 (test code 0.36 10*3/uL 0.33-0.92 = 742-7) EOS x10^3 (test code = 0.14 10*3/uL 0.03-0.39 711-2) BASO x10^3 (test code <0.03 0.01-0.07 = 704-7) Lab Interpretation Abnormal (test code = 94607-8) [facility] Whole [id number] 00:03:00 Test Item Value Reference Range Interpretation Comments LACTIC ACID (test code = 1.88 mmol/L 0.5-2.2 7016439792) Lab Interpretation (test code = Normal 65431-5) [facility]
[2022-09-20] MEDS ORDERED: LEVALBUTEROL 1.25 MG/3 ML NEB ONE (18:16)
--- NOTE | 2022-09-20 18:47 | RAD REPORT ---
EXAM DESCRIPTION: RAD - Chest Single View - 09/20/2022 6:19 pm CLINICAL HISTORY: sob, wheezing Chest pain. COMPARISON: Chest Single View dated 10/28/2021; Chest Single View dated 10/23/2021; Chest Single View dated 10/22/2021; Chest Single View dated 10/19/2021 FINDINGS: Portable technique limits examination quality. Moderate bilateral pulmonary opacities are seen which may represent pulmonary edema or pneumonia. The heart is moderately enlarged in size. No displaced fractures.
[2022-09-20 18:56] LABS: Absolute Lymphocytes (CBC) 0.4 K/uL (0.7-4.9); Hematocrit 24.2 % (36.0-45.0); Lymphocytes % 10.6 % (15.3-44.8); MCV 70.3 fL (80-100); MPV 9.4 fL (7.6-11.3); RBC Red Blood Cell Count 3.44 M/uL (3.86-4.86)
[2022-09-20 19:01] LABS: Anisocytosis 1+; Blood Morphology Comment NOTED (NOT SEEN); Hypochromasia 1+; Platelet Estimate ADEQ; White Blood Cell Scan OK (OK)
[2022-09-20 19:12] LABS: Protime INR 1.23
[2022-09-20 19:13] LABS: Albumin 3.2 g/dL (3.4-5.0); Bilirubin Direct 0.2 mg/dL (0-0.2); Bilirubin Total 0.3 mg/dL (0.2-1.0); Magnesium 2.4 mg/dL (1.6-2.4); Potassium 4.3 mmol/L (3.5-5.1); Protein, Total 6.5 g/dL (6.4-8.2); Troponin High Sensitivity 7.6 pg/mL (<58.9)
[2022-09-20 19:30] LABS: SARS-COV-2 RT PCR NEGATIVE (NEGATIVE)
[2022-09-20] MEDS ORDERED: FUROSEMIDE 40 MG/4 ML VIAL ONE (19:30)
--- NOTE | 2022-09-20 19:53 | EDPHYS ---
Physician Documentation [facility] Name: Minda Mcdowell Age: 87 yrs Sex: Female : 1935 Arrival Date: 09/20/2022 Time: 16:57 Bed 19 Private MD: ED Physician Jose Francisco Olivia HPI: 09/20 17:26 This 87 yrs old Female presents to ER via Wheelchair with complaints of Cough, jmm Breathing Difficulty. 17:26 The patient or guardian reports cough. Onset: The symptoms/episode began/occurred jmm gradually, 1 week(s) ago. Modifying factors: The symptoms are alleviated by nothing, the symptoms are aggravated by nothing. Associated signs and symptoms: Pertinent negatives: fever. This is an 87-year-old female with a history of congestive heart failure, diabetes mellitus, hypertension that presents emerged department with complaints of cough and progressively worsening shortness of breath over the past week. Denies fever. Was evaluated by her PCP today with concerns for pneumonia.. Historical: - Allergies: 17:05 PENICILLINS; mb9 17:05 Vancomycin; mb9 17:05 Keflex; mb9 17:05 Levaquin; mb9 - PMHx: 17:05 CHF; diabetes mellitus; heart disease; Hypertensive disorder; Hypercholesterolemia; mb9 - PSHx: 17:05 Cholecystectomy; mb9 - Immunization history:: Adult Immunizations up to date. - Social history:: Smoking status: Patient/guardian denies using tobacco, the patient reports quitting approximately 1966 years ago. ROS: 17:26 Constitutional: Positive for fatigue. jmm 17:26 Respiratory: Positive for cough, shortness of breath, wheezing. 17:26 All other systems are negative. Exam: 17:26 Constitutional: This is a well developed, well nourished patient who is awake, alert, jmm and in no acute distress. Head/Face: atraumatic. Eyes: EOMI, no conjunctival erythema appreciated ENT: Moist Mucus Membranes Neck: Trachea midline, Supple Chest/axilla: Normal chest wall appearance and motion. Cardiovascular: Regular rate and rhythm. No edema appreciated 17:26 Skin: General appearance color normal 17:26 Respiratory: Respirations: labored breathing, Breath sounds: wheezing: that is moderate, is scattered. 17:26 Musculoskeletal/extremity: Swelling noted to the lower extremities bilaterally. 17:26 Skin: Appearance: Color: normal in color. 17:26 Neuro: Motor: is normal. Vital Signs: 17:03 BP 122 / 72; Pulse 92; Resp 18; Temp 97.9; Pulse Ox 100% on R/A; Weight 77.11 kg; mb9 Height 5 ft. 8 in. ; Pain 0/10; 18:26 BP 138 / 84; Pulse 84; Resp 17 S; Pulse Ox 100% on R/A; kc6 19:20 BP 139 / 72; Pulse 81; Resp 17; Pulse Ox 96% on R/A; jb4 17:03 Body Mass Index 25.85 (77.11 kg, 172.72 cm) mb9 17:03 Pain Scale: Adult mb9 MDM: 17:[address] [facility] 19:21 Data reviewed: vital signs, nurses notes. [facility] 19:24 Differential Diagnosis: Upper Respiratory Infection Asthma Exacerbation Pneumonia Other [facility] CHF. Consideration of Admission/Observation Patient was admitted/placed on observation. Management of patient was discussed with the following:. 19:50 Counseling: I had a detailed discussion with the patient and/or guardian regarding: the [facility] historical points, exam findings, and any diagnostic results supporting the discharge/admit diagnosis, lab results, radiology results, the need to transfer to another facility. ED course: Patient was evaluated by Renato soares. Due to low hemoglobin and patient admission of dark stool yesterday request transfer for GI.. 09/20 17:23 Order name: Basic Metabolic Panel; Complete Time: 19:[address] [facility] 09/20 17:23 Order name: CBC with Diff; Complete Time: 19:[address] [facility] 09/20 17:23 Order name: LFT's; Complete Time: 19:[address] [facility] 09/20 17:23 Order name: Magnesium; Complete Time: 19:[address] [facility] 09/20 17:23 Order name: NT PRO-BNP; Complete Time: 19:[address] [facility] 09/20 17:23 Order name: PT-INR; Complete Time: 19:[address] [facility] 09/20 17:23 Order name: Troponin HS; Complete Time: 19:[address] [facility] 09/20 17:23 Order name: XRAY Chest (1 view); Complete Time: 18:[address] [facility] 09/20 17:23 Order name: EKG; Complete Time: 17:[address] [facility] 09/20 17:23 Order name: Cardiac monitoring; Complete Time: 18:[address] [facility] 09/20 17:23 Order name: EKG - Nurse/Tech; Complete Time: 18:[address] [facility] 09/20 17:23 Order name: IV Saline Lock; Complete Time: 18:[address] [facility] 09/20 17:23 Order name: Labs collected and sent; Complete Time: 18:[address] [facility] 09/20 17:23 Order name: O2 Per Protocol; Complete Time: 18:[address] [facility] 09/20 17:23 Order name: O2 Sat Monitoring; Complete Time: 18:[address] [facility] 09/20 17:56 Order name: Lactate w/ 2H reflex if indic.; Complete Time: 19:[address] [facility] 09/20 17:56 Order name: Blood Culture Adult (2) [facility] 09/20 17:23 Order name: COVID-19/FLU A+B; Complete Time: 19:[address] [facility] 09/20 19:02 Order name: CBC Smear Scan; Complete Time: 19:21 EDMS EC:24 Rate is 79 beats/min. Rhythm is irregularly irregular, A fib. QRS [place] is Normal. QRS jmm interval is normal. QT interval is normal. No ST changes noted. Reviewed by me. 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
--- NOTE | 2022-09-20 19:53 | ER ---
Nurse's Notes [facility] Name: Minda Mcdowell Age: 87 yrs Sex: Female : 1935 Arrival Date: 09/20/2022 Time: 16:57 Bed 19 Private MD: Diagnosis: GI Bleed/ Gastrointestinal hemorrhage, unspecified;Acute on chronic combined systolic (congestive) and diastolic (congestive) heart failure;Hypoxia Presentation: 09/20 17:03 Chief complaint: Patient states: "Dr. Lopez sent me over here. He said I don't have mb9 pneumonia yet and will probably need to be hospitalized. I have SOB that started today and coughing that started night.". Coronavirus screen: Vaccine status: Patient reports receiving the 2nd dose of the covid vaccine. Ebola Screen: No symptoms or risks identified at this time. Initial Sepsis Screen: Does the patient meet any 2 criteria? No. Patient's initial sepsis screen is negative. Does the patient have a suspected source of infection? No. Patient's initial sepsis screen is negative. Risk Assessment: Do you want to hurt yourself or someone else? Patient reports no desire to harm self or others. Onset of symptoms was September 20, 2022. 17:03 Method Of Arrival: Wheelchair mb9 17:03 Acuity: HARMONY 3 mb9 Triage Assessment: 17:06 General: Appears uncomfortable, ill, Behavior is calm, cooperative. Pain: Denies pain. mb9 Neuro: Level of Consciousness is awake, alert, obeys commands, Oriented to person, place, time, situation, Appropriate for age. Cardiovascular: Patient's skin is warm and dry. Respiratory: Reports shortness of breath cough that is Airway is patent Respiratory effort is even, unlabored, Respiratory pattern is regular, symmetrical, Breath sounds with wheezes bilaterally. Onset: The symptoms/episode began/occurred today, the patient has moderate shortness of breath. GI: No signs and/or symptoms were reported involving the gastrointestinal system. Derm: Skin is pink, warm \\T\\ dry. Derm: Wound noted left martinez. Musculoskeletal: Range of motion: intact in all extremities. Historical: - Allergies: 17:05 PENICILLINS; mb9 17:05 Vancomycin; mb9 17:05 Keflex; mb9 17:05 Levaquin; mb9 - PMHx: 17:05 CHF; diabetes mellitus; heart disease; Hypertensive disorder; Hypercholesterolemia; mb9 - PSHx: 17:05 Cholecystectomy; mb9 - Immunization history:: Adult Immunizations up to date. - Social history:: Smoking status: Patient/guardian denies using tobacco, the patient reports quitting approximately 1966 years ago. Screenin:24 [facility] ED Fall Risk Assessment (Adult) History of falling in the last 3 months, kc6 including since admission No falls in past 3 months (0 pts) Confusion or Disorientation No (0 pts) Intoxicated or Sedated No (0 pts) Impaired Gait No (0 pts) Mobility Assist Device Used No (0 pt) Altered Elimination No (0 pt) Score/Fall Risk Level 0 - 2 = Low Risk Oriented to surroundings, Maintained a safe environment, Educated pt \\T\\ family on fall prevention, incl call for assistance when getting out of bed, Assessed \\T\\ reinforced patient's understanding of fall precautions, Hourly rounding (assess needs \\T\\ fall precautionary measures) done. Abuse screen: Denies threats or abuse. Denies injuries from another. Nutritional screening: No deficits noted. Tuberculosis screening: No symptoms or risk factors identified. Assessment: 17:07 Reassessment: see triage assessment. mb9 18:24 General: Appears in no apparent distress. comfortable, ill, Behavior is calm, kc6 cooperative, appropriate for age. Pain: Denies pain. Neuro: Elizabeth Agitation-Sedation Scale (RASS): 0 - Alert and Calm Level of Consciousness is awake, alert, obeys commands, Oriented to person, place, time, situation, Appropriate for age. Cardiovascular: Capillary refill < 3 seconds Rhythm is atrial fibrillation. Respiratory: Reports shortness of breath cough that is Airway is patent Trachea midline Respiratory effort is even, unlabored, Respiratory pattern is symmetrical, tachypnea Breath sounds with wheezes bilaterally. GI: No signs and/or symptoms were reported involving the gastrointestinal system. : No signs and/or symptoms were reported regarding the genitourinary system. EENT: No signs and/or symptoms were reported regarding the EENT system. Derm: Skin is pink, warm \\T\\ dry. Wound noted left leg Wound is appears to be open with redness, swelling, and drainage. Musculoskeletal: No signs and/or symptoms reported regarding the musculoskeletal system. Circulation, motion, and sensation intact. Capillary refill < 3 seconds, Range of motion: intact in all extremities. 19:24 Reassessment: Patient and/or family updated on plan of care and expected duration. Pain jb4 level reassessed. Pt noted to desat to 84% on RA when sleeping, when woken, pt O2 returned to 96%, Provider notified. Vital Signs: 17:03 BP 122 / 72; Pulse 92; Resp 18; Temp 97.9; Pulse Ox 100% on R/A; Weight 77.11 kg; mb9 Height 5 ft. 8 in. ; Pain 0/10; 18:26 BP 138 / 84; Pulse 84; Resp 17 S; Pulse Ox 100% on R/A; kc6 19:20 BP 139 / 72; Pulse 81; Resp 17; Pulse Ox 96% on R/A; jb4 17:03 Body Mass Index 25.85 (77.11 kg, 172.72 cm) mb9 17:03 Pain Scale: Adult mb9 ED Course: 16:57 Patient arrived in ED. rg4 17:05 Triage completed. 9 17:06 Arm band placed on. [facility] 17:21 Bear Paniagua PA is PHCP. [facility] 17:21 Jose Francisco Olivai MD is Attending Physician. jeremiah 18:10 Radha Valera, CHLOÉ is Primary Nurse. [facility] 18:21 XRAY Chest (1 view) In Process Unspecified. EDMS 18:24 Patient has correct armband on for positive identification. Bed in low position. Call kc6 light in reach. Side rails up X2. 18:44 Initial lab(s) drawn, by me, sent to lab. EKG done, by ED staff. Inserted saline lock: bc6 20 gauge in right antecubital area, using aseptic technique. Administered Medications: 18:24 Drug: Levalbuterol Inhalation 1.25 mg Route: Inhalation; kc6 19:33 Drug: Furosemide IVP 40 mg Route: IVP; Site: right antecubital; jb4 Outcome: 19:52 ER care complete, transfer ordered by . zoey Signatures: Dispatcher [employer] EDMS Bear Paniagua PA PA jmm Garcia, Rubi rg4 Jonathan Clemens RN RN jb4 Radha Valera RN RN kc6 Breneman, Mary Beth, RN RN mb9 Denisse Gutierrez6 Corrections: (The following items were deleted from the chart) 19:24 19:21 Reassessment: Patient appears in no apparent distress at this time. Patient jb4 and/or family updated on plan of care and expected duration. Pain level reassessed. Patient is alert, oriented x 3, equal unlabored respirations, skin warm/dry/pink. jb4
[2022-09-20] MEDS ORDERED: PANTOPRAZOLE 40 MG INJ ONE (20:20)
[2022-09-20] MEDS ORDERED: NA CHLORIDE 0.9% 250 ML ONE (20:20)
[2022-09-20] MEDS ORDERED: ACETAMINOPHEN 500 MG TAB ONE (21:24)
[2022-09-20] MEDS ORDERED: CLINDAMYCIN 900MG/D5W 900 MG/50 ML IVPB IV ONE (22:44)
[2022-09-20] MEDS ORDERED: ONDANSETRON 4 MG/2 ML VIAL ONE (22:44)
[2022-09-20] MEDS ORDERED: MORPHINE 2 MG/ML SYR ONE (22:44)
[2022-09-20] MEDS ORDERED: ALBUMIN HUMAN 25% 50 ML IV ONE ×2 (22:57→23:39)
[2022-09-20] MEDS ORDERED: DIGOXIN 0.25 MG/ML AMP ONE (23:39)
[2022-09-21 10:11] VITALS: TEMP 97.9
[2022-09-21 10:19] VITALS: O2SAT 100
[2022-09-21 10:20] VITALS: BP 101/59
--- NOTE | 2022-09-21 12:35 | EKG ---
Test Date: 2022-09-20 Test Time: 18:20:19 Fruit Room Hand: ZAHRA MEASUREMENT RESULTS: Intervals: Rate: 79 TX: QRSD: 96 QT: 410 QTc: 470 Robbins: P: TX: QRS: -35 T: 37 INTERPRETIVE STATEMENTS: Atrial fibrillation Left axis deviation Abnormal ECG Compared to ECG 10/18/2021 22:11:27 Left-axis deviation now present Myocardial infarct finding no longer present Electronically Signed On 09-21-22 12:34:58 CDT by Christian Lopez
== END 2022-09-21 01:04 ==
LOC: SUPCPDRO 16:53 → ER 16:53
DX: R09.02 Hypoxemia (principal); I50.43 Acute on chronic combined systolic (congestive) and diastolic (congestive) heart failure; K92.2 Gastrointestinal hemorrhage, unspecified; I10 Essential (primary) hypertension; Z20.822 Contact with and (suspected) exposure to COVID-19; Z88.0 Allergy status to penicillin; Z88.1 Allergy status to other antibiotic agents; Z88.3 Allergy status to other anti-infective agents
CPT/HCPCS: 93005; 87040 ×2; 85025; 80048; 36415; 86900; 83735; 86850; 87205; 85610; 86901; 80076; 83605; 84484; 83880; 0240U; 71045; 99285; J1160; J7614; J1940; C9113; J2270; J2405; P9047 ×2; J7050

== ENCOUNTER 2023-07-16 17:16 | Inpatient (IN) | payer MEDICARE, OTHER ==
[2023-07-16 17:54] LABS: Absolute Lymphocytes (CBC) 0.2 K/uL (0.7-4.9); Lymphocytes % 2.8 % (15.3-44.8); MCV 86.7 fL (80-100); Platelets 201 thou/uL (152-406); RBC Red Blood Cell Count 4.38 M/uL (3.86-4.86)
[2023-07-16 17:59] LABS: Protime INR 1.15
[2023-07-16 18:10] LABS: SARS-CoV-2 Antigen Rapid Res Negative (Negative)
[2023-07-16 18:13] LABS: Blood Morphology Comment NOT SEEN (NOT SEEN); Platelet Estimate ADEQ; White Blood Cell Scan OK (OK)
[2023-07-16 18:15] LABS: Albumin 3.3 g/dL (3.4-5.0); Bilirubin Direct 0.2 mg/dL (0-0.2); Bilirubin Indirect, Calculated 0.3 mg/dL (0.2-0.8); Bilirubin Total 0.5 mg/dL (0.2-1.0); Magnesium 1.9 mg/dL (1.6-2.4); Potassium 4.5 mEq/L (3.5-5.1); Troponin High Sensitivity 15.9 pg/mL (<58.9)
--- NOTE | 2023-07-16 18:38 | RAD REPORT ---
EXAM DESCRIPTION[facility] 5:41 pm CLINICAL HISTORY: COUGH COMPARISON: Chest Single View dated 09/20/2022; Chest Single View dated 10/28/2021; Chest Single View dated 10/23/2021; Chest Single View dated 10/22/2021 TECHNIQUE: Portable AP view of the chest. FINDINGS: The lungs are clear, with mild hyperinflation, may suggest COPD. No pneumothorax or effus ion. Stable cardiomegaly, with dense mitral valve calcifications. Central vascular prominence, improv ed since the prior exam. Mediastinal contours are otherwise unremarkable. IMPRESSION: Stable cardiomegaly and likely sequelae of COPD. No other acute findings.
[2023-07-16] MEDS ORDERED: NA CHLORIDE 0.9% 1,000 ML ONE (18:51)
--- NOTE | 2023-07-16 18:55 | ER ---
Nurse's Notes [facility] Name: Minda Mcdowell Age: 88 yrs Sex: Female : 1935 Arrival Date: 07/16/2023 Time: 17:16 Bed DIS1 Private MD: Diagnosis: Influenza due to identified novel influenza A virus;Hypo-osmolality and hyponatremia;Unspecified atrial fibrillation Presentation: 07/16 17:47 Chief complaint: EMS states: patient has been having abdominal pain and back pain x 1 ko1 week, also constipation x 1 wk. She is spitting up copious amounts of thick clear/pink secretions. Afib with a hx of afib. Coronavirus screen: chills, congestion, nausea, runny nose. Ebola Screen: No symptoms or risks identified at this time. Initial Sepsis Screen: Does the patient meet any 2 criteria? No. Patient's initial sepsis screen is negative. Does the patient have a suspected source of infection? No. Patient's initial sepsis screen is negative. Risk Assessment: Do you want to hurt yourself or someone else? Patient reports no desire to harm self or others. Onset of symptoms is unknown. Care prior to arrival: Medication(s) given: Normal saline infusion, 500 mL, zofran 4 mg, IV initiated. 22 GA, in the left wrist, Glucose check: 256 Oxygen administered. via nasal cannula. 17:47 Method Of Arrival: EMS: [facility] ko1 17:47 Acuity: HARMONY 2 ko1 Triage Assessment: 17:47 General: Appears in no apparent distress. uncomfortable, ill, Behavior is calm, ko1 cooperative, appropriate for age. Pain: Complains of pain in back and abdomen. Historical: - Immunization history:: Adult Immunizations up to date, Pneumococcal vaccine is up to date, Flu vaccine is up to date. - Social history:: Smoking status: Patient denies any tobacco usage or history of. - History obtained from: EMS. Screenin:52 [facility] ED Fall Risk Assessment (Adult) History of falling in the last 3 months, ko1 including since admission No falls in past 3 months (0 pts) Confusion or Disorientation No (0 pts) Intoxicated or Sedated No (0 pts) Impaired Gait Yes (1 pt) Mobility Assist Device Used Yes (1 pt) Altered Elimination Yes (1 pt) Score/Fall Risk Level 3 or more points = High Risk Oriented to surroundings, Maintained a safe environment, Educated pt \T\ family on fall prevention, incl call for assistance when getting out of bed, Assessed \T\ reinforced patient's understanding of fall precautions, Provided non-skid footwear, Hourly rounding (assess needs \T\ fall precautionary measures) done, Used ambulatory aids as needed (educated on \T\ assisted with), Used gait belt as appropriate Implemented a Fall Risk Plan of Care, Apply high fall risk patient identification: yellow non skid footwear/ fall signage, Remained w/in arm's length of patient and in sight while toileting, Offered frequent toileting (1:1 observation), Remained with patient while ambulating, Utilized family, sitter, or virtual director epidemiology as indicated. Abuse screen: Denies threats or abuse. Denies injuries from another. Nutritional screening: No deficits noted. Tuberculosis screening: No symptoms or risk factors identified. Assessment: 17:52 Neuro: No deficits noted. Cardiovascular: Reports nausea, Patient's skin is warm and ko1 dry. Rhythm is atrial fibrillation. Respiratory: Sputum is thick, white. GI: Reports nausea. : Reports incontinence. EENT: No deficits noted. Derm: No deficits noted. Musculoskeletal: Kyphosis noted. Vital Signs: 17:47 BP 142 / 65; Pulse 96; Resp 19; Temp 98.4; Pulse Ox 98% on 4 lpm NC; ko1 18:02 BP 136 / 79; Pulse 102; Resp 18; Pulse Ox 96% on 2 lpm NC; ko1 19:00 BP 124 / 77; Pulse 91; Resp 19; Pulse Ox 97% ; jj7 ED Course: 17:22 Patient arrived in ED. mb9 17:23 Dulce Ott MD is Attending Physician. gb1 17:42 EKG done, by ED staff, reviewed by Dulce Ott MD. em1 17:43 XRAY Chest (1 view) In Process Unspecified. EDMS 17:45 Inserted saline lock: 20 gauge in right antecubital area, using aseptic technique. ko1 Blood collected. Oxygen administration via nasal cannula \T\ 2L/min. 17:46 Deysi Razo, RN is Primary Nurse. ko1 17:47 Basic Metabolic Panel Sent. ko1 17:47 CBC with Diff Sent. ko1 17:47 LFT's Sent. ko1 17:47 Magnesium Sent. ko1 17:47 NT PRO-BNP Sent. ko1 17:47 PT-INR Sent. ko1 17:47 Troponin HS Sent. ko1 17:47 Arm band placed on right wrist. Patient placed in an exam room, on a stretcher, on ko1 oxygen, on cardiac specialist, on pulse oximetry, Patient notified of wait time. 17:51 Triage completed. ko1 17:52 SARS RAPID Sent. ko1 17:52 Influenza Screen (a \T\ B) Sent. ko1 17:52 RSV Sent. ko1 17:52 Patient has correct armband on for positive identification. Allergy band placed. Fall ko1 risk band placed. Placed in gown. Bed in low position. Call light in reach. Side rails up X2. Provided Education on: na. Client placed on continuous cardiac and pulse oximetry monitoring. NIBP monitoring applied. tailor men's ready to wear on. Door closed. Noise minimized. Lights dimmed. Warm blanket given. Pillow given. 18:53 Wyatt Osman MD is Hospitalizing Provider. gb1 19:53 No provider procedures requiring assistance completed. Patient admitted, IV remains in jj7 place. Administered Medications: 18:53 Drug: NS 0.9% IV 1000 ml IV at 1000 ml once Route: IV; Rate: 1000 ml; Site: right mb9 antecubital; Medication: 19:53 VIS not applicable for this client. [facility] Outcome: 18:54 Decision to Hospitalize by Provider. gb1 20:39 Admitted to Med/surg accompanied by tech, via stretcher, room 204, with chart, Report rv called to jennifer giordano 20:39 Condition: good 20:39 Instructed on the need for admit, 20:40 Patient left the ED. rv Signatures: Dispatcher [employer] Emanuel Palomino Ronaldo, RN RN rv eDysi Razo RN RN ko1 Vanda Ponce RN RN jj7 Breneman, Mary Beth RN RN [id number] Dulce Ott MD MD gb1 Corrections: (The following items were deleted from the chart) 17:42 17:42 PMHx: diabetes mellitus; gb1 gb1 17:42 17:42 PMHx: Hypertensive disorder; gb1 gb1 17:42 17:42 PMHx: heart disease; gb1 gb1 PMHx: CHF; gb1 gb1 PMHx: Hypercholesterolemia; gb1 gb1 PSHx: Cholecystectomy; gb1 gb1
--- NOTE | 2023-07-16 18:55 | EDPHYS ---
Physician Documentation [facility] Name: Minda Mcdowell Age: 88 yrs Sex: Female : 1935 Arrival Date: 07/16/2023 Time: 17:16 Bed DIS1 Private MD: ED Physician Dulce Ott HPI: 07/16 18:55 This 88 yrs old Female presents to ER via EMS with complaints of cough, gb1 vomiting and SOB, fatigue. 17:41 88-year-old female brought by EMS from the urgent care for shortness of gb1 breath and cough. Patient has a history of atrial fibrillation and is on Eliquis. At this time she states that she has been vomiting and it has been worsening since she had the nausea. She denies any fever or chills.. 17:44 Patient reportedly at 90% on room air. Via EMS prior to transport to the ER. This level gb1 was noted on pickup at the urgent care.. Historical: - Immunization history:: Adult Immunizations up to date, Pneumococcal vaccine is up to date, Flu vaccine is up to date. - Social history:: Smoking status: Patient denies any tobacco usage or history of. - History obtained from: EMS. ROS: 17:42 Unable to obtain ROS due to patient distress, gb1 18:55 Unable to obtain ROS due to patient distress, gb1 18:57 All other systems are negative, gb1 Exam: 17:42 Head/Face: Normocephalic, atraumatic. Eyes: Pupils equal round and reactive to light, gb1 extra-ocular motions intact. Lids and lashes normal. Conjunctiva and sclera are non-icteric and not injected. Cornea within normal limits. Periorbital areas with no swelling, redness, or edema. ENT: Nares patent. No nasal discharge, no septal abnormalities noted. Tympanic membranes are normal and external auditory canals are clear. Oropharynx with no redness, swelling, or masses, exudates, or evidence of obstruction, uvula midline. Mucous membranes moist. Neck: Trachea midline, no thyromegaly or masses palpated, and no cervical lymphadenopathy. Supple, full range of motion without nuchal rigidity, or vertebral point tenderness. No Meningismus. Abdomen/GI: Soft, non-tender, with normal bowel sounds. No distension or tympany. No guarding or rebound. No evidence of tenderness throughout. Back: No spinal tenderness. No costovertebral tenderness. Full range of motion. Skin: Warm, dry with normal turgor. Normal color with no rashes, no lesions, and no evidence of cellulitis. MS/ Extremity: Pulses equal, no cyanosis. Neurovascular intact. Full, normal range of motion. 17:42 Constitutional: The patient appears frail, in obvious distress, mildly distressed, 17:42 Cardiovascular: Rate: tachycardic, Rhythm: irregularly irregular, 17:42 Skin: Appearance: Color: pale, Turgor: is poor, Vital Signs: 17:47 BP 142 / 65; Pulse 96; Resp 19; Temp 98.4; Pulse Ox 98% on 4 lpm NC; ko1 18:02 BP 136 / 79; Pulse 102; Resp 18; Pulse Ox 96% on 2 lpm NC; ko1 19:00 BP 124 / 77; Pulse 91; Resp 19; Pulse Ox 97% ; jj7 MDM: 17:23 Patient medically screened. gb1 17:42 Data reviewed: vital signs, nurses notes. gb1 17:42 Differential diagnosis: CHF exacerbation, Chronic Obstructive Pulmonary Disease gb1 Myocardial Infarction pneumonia, pulmonary edema, Pulmonary Embolism reactive airway disease, Sepsis Unstable Angina. Data reviewed: EMS record, EKG, EKG shows atrial fibrillation with RVR 104 bpm at 1734.. 18:55 Consideration of Admission/Observation Patient was admitted/placed on observation. gb1 Transition of care: After a detail discussion of the patient's case, care is transferred to Wyatt Osman MD. ED course: 88-year-old female with positive influenza A and acute hyponatremia likely secondary to dehydration. Patient's not in any acute heart failure and does not at this time appear fluid overloaded. I will rehydrate her with normal saline at 1 L and reassess her. The patient has been told that she is going to be admitted to the hospital and I discussed the case with Dr. Osman via SMS text. He is agreed to observe the patient in the telemetry unit. I do not appreciate any focal pneumonia and the patient is on the extremis secondary to her atrial fibrillation with RVR. I did review her EKG which shows atrial fibrillation at 104 bpm normal intervals and axis.. 07/16 17:24 Order name: Basic Metabolic Panel; Complete Time: 18:26 gb1 07/16 17:24 Order name: CBC with Diff; Complete Time: 18:26 gb1 07/16 17:24 Order name: LFT's; Complete Time: 18:26 gb1 07/16 17:24 Order name: Magnesium; Complete Time: 18:26 gb07/16 17:24 Order name: NT PRO-BNP; Complete Time: 18:26 gb1 07/16 17:24 Order name: PT-INR; Complete Time: 18:26 gb1 07/16 17:24 Order name: Troponin HS; Complete Time: 18:27 gb1 07/16 17:24 Order name: Urinalysis w/ reflexes gb1 07/16 17:41 Order name: SARS RAPID; Complete Time: 18:27 gb1 07/16 17:41 Order name: Influenza Screen (a \T\ B); Complete Time: 18:26 gb1 07/16 17:41 Order name: RSV; Complete Time: 18:27 gb1 07/16 17:58 Order name: CBC Smear Scan; Complete Time: 18:27 EDMS 07/16 19:08 Order name: Urinalysis w/ reflexes EDMS 07/16 19:08 Order name: CBC with Automated Diff EDMS 07/16 19:08 Order name: CBC with Automated Diff EDMS 07/16 19:08 Order name: Comprehensive Metabolic Panel EDMS 07/16 19:08 Order name: Comprehensive Metabolic Panel EDMS 07/16 20:38 Order name: Glucose, Ancillary Testing EDMS 07/16 17:24 Order name: XRAY Chest (1 view); Complete Time: 18:41 gb1 07/16 17:24 Order name: EKG; Complete Time: 17:25 gb07/16 17:24 Order name: Cardiac monitoring; Complete Time: 17:46 gb1 07/16 17:24 Order name: EKG - Nurse/Tech; Complete Time: 17:42 gb1 07/16 17:24 Order name: IV Saline Lock; Complete Time: 17:46 gb07/16 17:24 Order name: Labs collected and sent; Complete Time: 17:46 gb1 07/16 17:24 Order name: O2 Per Protocol; Complete Time: 17:47 gb1 07/16 17:24 Order name: O2 Sat Monitoring; Complete Time: 17:47 gb1 Administered Medications: 18:53 Drug: NS 0.9% IV 1000 ml IV at 1000 ml once Route: IV; Rate: 1000 ml; Site: right mb9 antecubital; Disposition: 18:57 Chart complete. gb1 Disposition Summary: 07/16/23 18:54 Hospitalization Ordered Notes: Hospitalization Status: Inpatient Admission gb1 Provider: Wyatt Osman Location: Telemetry/MedSurg (observation) gb1 Condition: Fair gb1 Problem: new gb1 Symptoms: have worsened gb1 Bed/Room Type: Standard 1 Room Assignment: 204(07/16/23 19:46) kl Diagnosis - Influenza due to identified novel influenza A virus gb1 - Hypo-osmolality and hyponatremia gb1 - Unspecified atrial fibrillation gb1 Forms: - Medication Reconciliation Form gb1 - SBAR form gb1 - Leadership Thank You Letter gb1 Signatures: Dispatcher [employer] Sia Izquierdo RN RN kl Oliver, Kathy, RN RN ko1 Breneman, Mary Beth, RN RN mb9 Dulce Ott MD MD gb1 Corrections: (The following items were deleted from the chart) 17:42 17:42 PMHx: diabetes mellitus; gb1 gb1 17:42 17:42 PMHx: Hypertensive disorder; gb1 gb1 17:42 17:42 PMHx: heart disease; gb1 gb1 17:42 17:42 PMHx: CHF; gb1 gb1 17:42 17:42 PMHx: Hypercholesterolemia; gb1 gb1 17:42 17:42 PSHx: Cholecystectomy; gb1 gb1 19:46 18:54 gb1
[2023-07-16] MEDS ORDERED: ONDANSETRON 4 MG/2 ML VIAL IV PRN (19:04)
--- NOTE | 2023-07-16 19:11 | P.HP ---
Certification for Inpatient Patient admitted to: Inpatient With expected LOS: >2 Midnights Patient will require the following post-hospital care: None Practitioner: I am a practitioner with admitting privileges, knowledge of patient current condition, hospital course, and medical plan of care. Services: Services provided to patient in accordance with Admission requirements found in Title 42 Section 412.3 of the Code of Federal Regulations Patient History Date of Service: 07/16/23 Reason for admission: SOB History of Present Illness: 88-year-old female with past medical history of hypertension, hyperlipidemia, diabetes, CHF, atrial fibrillation on Eliquis was seen at the urgent care for shortness of breath and cough which has been progressively getting worse and was transferred over here for further management. Patient also having nausea and multiple episodes of vomiting. Denies any chest pain. No fever or chills. Den ies any dysuria. Patient has cough with mucoid expectoration. Associated with wheezing and shortness of breath progressively getting worse with exertions. Patient was also reportedly 90% on room air. Patient was assessed in the ER and was admitted for COPD exacerbation and also was found to be flu positive Allergies cephalexin [From Keflex] Allergy (Verified 09/20/21 12:43) Itching/Hives/Rash levofloxacin [From Levaquin] Allergy (Verified 09/20/21 12:43) Itching/Hives/Rash Penicillins Allergy (Verified 09/20/21 12:43) Anaphylaxis vancomycin Allergy (Verified 09/20/21 12:43) Itching/Hives/Rash Home medications list reviewed: Yes Home Medications: Amlodipine [Norvasc*] 5 mg PO DAILY 10/03/21 Apixaban [Eliquis] 5 mg PO BID 10/03/21 Ascorbic Acid [C-1000] 1,000 mg PO DAILY 10/03/21 Atorvastatin Calcium [Lipitor*] 20 mg PO BEDTIME 10/03/21 Carvedilol [Coreg] 25 mg PO BID 10/03/21 Digoxin 125 mcg PO M,W,F 10/03/21 Furosemide [Lasix*] 40 mg PO DAILY 10/03/21 Gabapentin 300 mg PO DAILY 10/03/21 Magnesium Oxide [Magnesium] 500 mg PO DAILY 10/03/21 Meclizine HCl 25 mg PO DAILY PRN 10/03/21 Omeprazole [Prilosec] 40 mg PO DAILY 10/03/21 Ropinirole HCl 2 mg PO TID 10/03/21 Empagliflozin [Jardiance] 10 mg PO DAILY 10/19/21 cloNIDine HCL [Clonidine HCl] 0.1 mg PO PRN PRN 10/19/21 Albuterol Neb [Proventil 0.083% Neb Soln] 2.5 mg NEB [id number] PRN #60 amp 10/29/21 Alogliptin Benzoate [Nesina] 25 mg PO BEDTIME #30 tablet 10/29/21 Amox/Clavulanate [Augmentin 875-125 Tab] 1 each PO BID #14 tab 10/29/21 Apixaban [Eliquis] 5 mg PO BID #60 tablet 10/29/21 Arformoterol Tartrate [Brovana] 15 mcg NEB BIDRESP #60 vial.neb 10/29/21 Benzonatate [Tessalon Perle*] 100 mg PO TID PRN #30 cap 10/29/21 Furosemide [Lasix*] 40 mg PO DAILY #30 tab 10/29/21 Insulin Glargine,Hum.rec.anlog [Basaglar Kwikpen U-100] 10 unit SQ BID #2 10/29/21 Jules [Jules*] 1 pkt PO BID #60 powd.pack 10/29/21 Linezolid [Zyvox] 600 mg PO BID #14 tab 10/29/21 Pantoprazole [Protonix Tab*] 40 mg PO DAILY #30 tab 10/29/21 Roflumilast [Daliresp*] 500 mcg PO DAILY #30 tablet 10/29/21 Spironolactone [Aldactone*] 25 mg PO DAILY #30 tab 10/29/21 predniSONE [Prednisone*] 20 mg PO BID #11 tab 10/29/21 - Past Medical/Surgical History Diabetic: Yes Past Medical History: Reviewed- Non-Contributory -: CHF-Unkown -: DMII-insulin dependent -: HTN -: HLD -: Afib on chronic anticoagulation Past Surgical History: Reviewed- Non-Contributory -: right knee joint replacement 2010 -: appendix removal 1955 -: gallbladder removal -: TLH-total laproscopic hysterectomy -: bilateral shoulder surgery Psychosocial/ Personal History: Lives at home with her daughter/grandaughter - Family History Family History: Reviewed- Non-Contributory - Family History Father -: Heart disease Brother -: Cancer Sister -: Cancer - Social History Smoking Status: Never smoker Alcohol use: No Review of Systems 10-point ROS is otherwise unremarkable General: Weakness, Malaise Eyes: Unremarkable ENT: Unremarkable Respiratory: Cough, Shortness of Breath, SOB with Excertion Cardiovascular: Unremarkable Gastrointestinal: Nausea, Vomiting Genitourinary: Unremarkable Musculoskeletal: Shoulder Pain, Arm Pain, Leg Pain Integumentary: Unremarkable Physical Examination - Vital Signs Temperature: 99.2 F Blood Pressure: 134/78 Pulse: 78 Respirations: 20 Pulse Ox (%): 94 - Physical Exam General: Alert, Oriented x2, Oriented x1, Cooperative, Mild distress HEENT: Atraumatic, Normocephalic Neck: Supple, No LAD Respiratory: Diminished, Crackles/rales, Expiratory wheezes Cardiovascular: No edema, Regular rate/rhythm, Normal S1 S2 Capillary refill: <2 Seconds Gastrointestinal: Normal bowel sounds, Soft and benign, W/out hepatosplenomegaly Musculoskeletal: No clubbing Integumentary: No rashes, No tenderness/swelling Neurological: Normal speech, Normal tone, Sensation intact, Cranial nerves 3-12 intact Lymphatics: No axilla or inguinal lymphadenopathy - Studies Laboratory Data (last 24 hrs) 07/16/23 07/16/23 07/16/23 17:45 17:45 17:45 WBC 8.60 Hgb 12.5 Hct 38.0 Plt Count 201 PT 12.6 H INR 1.15 Sodium 130 L Potassium 4.5 BUN 17 Creatinine 0.76 Glucose 215 H Magnesium 1.9 Total Bilirubin 0.5 AST 18 ALT 19 Alkaline Phosphatase 126 H Microbiology Data (last 24 hrs): 07/16/23 17:48 Nasopharnyx Respiratory Syncytial Virus Ag Scrn - Final 07/16/23 17:48 Nasopharnyx Influenza Type A Antigen Screen - Final 07/16/23 17:48 Nasopharnyx Influenza Type B Antigen Screen - Final Assessment and Plan - Problems (Diagnosis) (1) Flu Current Visit: Yes Status: Acute Plan: Positive for influenza A Started on Tamiflu Supportive management Monitor closely (2) Bronchitis Current Visit: Yes Status: Acute Plan: Will start on Zithromax Monitor closely Cultures obtained Antitussives (3) Atrial fibrillation Current Visit: No Status: Chronic Plan: A-fib with RVR paroxysmal Continue home medication Rate controlled Continue Eliquis (4) CHF (congestive heart failure) Current Visit: No Status: Chronic Plan: History of CHF Not in CHF exacerbation now Monitor closely under telemetry BNP elevated Monitor closely Qualifiers: Heart failure type: systolic (5) Diabetes Current Visit: No Status: Chronic Plan: Insulin sliding scale Accu-Chek ACHS (6) Hyperlipidemia Current Visit: No Status: Acute (7) Hypertension Current Visit: No Status: Chronic Plan: Antihypertensives continue Titrate as needed Monitor closely (8) COPD exacerbation Current Visit: Yes Status: Acute Plan: Started on bronchodilators Started on steroids Continue antitussives (9) Acute hypoxic respiratory failure Current Visit: Yes Status: Acute Plan: Oxygen supplementation Will titrate to pulse ox more than 92 we will try to wean down oxygen requirement Discharge Plan: Home Plan to discharge in: 48 Hours - Advance Directives Does patient have a Living Will: Yes Does patient have a Durable POA for Healthcare: No - Code Status/Comfort Care Code Status: Full Code Time Spent Managing Pts Care (In Minutes): 48
[2023-07-16] MEDS: NA CHLORIDE 0.9% 1,000 ML IV SCH (22:03)
[2023-07-16] MEDS: INSULIN REGULAR (HUMAN) 100 UNIT/ML SQ SCH (22:04)
[2023-07-16] MEDS: OSELTAMIVIR 75 MG CAP PO SCH (22:11)
[2023-07-16] MEDS: APIXABAN 5 MG TABLET PO SCH (22:11)
[2023-07-16] MEDS: carvediloL 25 MG TAB PO SCH (22:11)
[2023-07-16] MEDS: ATORVASTATIN 20 MG TAB PO SCH (22:12)
[2023-07-16] MEDS: GUAIFENESIN/DM 5 ML UCUP PO PRN (23:54)
[2023-07-17 00:46] VITALS: BMI 25.2
[2023-07-17] MEDS: ALBUTEROL 2.5 MG/3 ML NEB SOL NEB PRN (02:34)
[2023-07-17 06:08] LABS: Absolute Lymphocytes (CBC) 0.3 K/uL (0.7-4.9); Lymphocytes % 4.9 % (15.3-44.8); MCV 87.5 fL (80-100); MPV 9.5 fL (7.6-11.3); Platelets 175 thou/uL (152-406)
[2023-07-17 06:11] LABS: Albumin 2.9 g/dL (3.4-5.0); Bilirubin Total 0.6 mg/dL (0.2-1.0); Potassium 4.6 mEq/L (3.5-5.1)
[2023-07-17] MEDS: INSULIN REGULAR (HUMAN) 100 UNIT/ML SQ SCH ×4 (07:30→21:00)
[2023-07-17] MEDS: ARFORMOTEROL TARTRATE 15 MCG/2 ML VIAL.NEB NEB SCH ×2 (08:12→20:19)
[2023-07-17] MEDS: AMLODIPINE 5 MG TAB PO SCH (10:42)
[2023-07-17] MEDS: carvediloL 25 MG TAB PO SCH ×2 (10:42→21:33)
[2023-07-17] MEDS: AZITHROMYCIN IV 500 MG in NA CHLORIDE 0.9% 250 ML IVPB SCH (10:42)
[2023-07-17] MEDS: OSELTAMIVIR 75 MG CAP PO SCH ×2 (10:42→21:33)
[2023-07-17] MEDS: METHYLPREDNISOLONE 40 MG INJ IV SCH ×3 (10:43→18:23)
[2023-07-17] MEDS: APIXABAN 5 MG TABLET PO SCH ×2 (10:51→21:34)
[2023-07-17] MEDS: ASCORBIC ACID 500 MG TABLET PO SCH (10:51)
--- NOTE | 2023-07-17 14:57 | P.PN ---
Subjective Date of Service: 07/17/23 Chief Complaint: SOB Patient states she feels much better today. States that shortness of breath has improved and now only coughing intermittently. She reports a nonproductive cough, no wheezing. Physical Examination - Vital Signs Temperature: 98.3 F Blood Pressure: 130/83 Pulse: 83 Respirations: 20 Pulse Ox (%): 98 - Physical Exam General: Alert, In no apparent distress, Oriented x3 HEENT: Mucous membr. moist/pink, Other (Oxygen by nasal cannula) Neck: Supple, JVD not distended Respiratory: Crackles/rales (Mild bibasilar Rales, no wheezes) Cardiovascular: No edema, Regular rate/rhythm, Normal S1 S2 Gastrointestinal: Normal bowel sounds, Soft and benign, Non-distended, No tenderness Musculoskeletal: No swelling Integumentary: No rashes, No cyanosis Neurological: Normal strength at 5/5 x4 extr - Studies Laboratory Data (last 24 hrs) 07/16/23 07/16/23 07/16/23 17:45 17:45 17:45 WBC 8.60 Hgb 12.5 Hct 38.0 Plt Count 201 PT 12.6 H INR 1.15 Sodium 130 L Potassium 4.5 BUN 17 Creatinine 0.76 Glucose 215 H Magnesium 1.9 Total Bilirubin 0.5 AST 18 ALT 19 Alkaline Phosphatase 126 H Microbiology Data (last 24 hrs): 07/16/23 17:48 Nasopharnyx Respiratory Syncytial Virus Ag Scrn - Final 07/16/23 17:48 Nasopharnyx Influenza Type A Antigen Screen - Final 07/16/23 17:48 Nasopharnyx Influenza Type B Antigen Screen - Final Assessment And Plan - Plan Influenza A infection Positive for influenza A Continue Tamiflu Supportive management Monitor closely Acute infective bronchitis On Zithromax Antitussives. COPD exacerbation/acute respiratory failure with hypoxia Continue bronchodilators and steroid Continue antitussives. Wean off oxygen as tolerated. Chronic persistent atrial fibrillation Continue home medication Rate controlled Continue Eliquis Chronic systolic heart failure History of CHF No CHF exacerbation Stable. Diabetes mellitus type II Insulin sliding scale Accu-Chek ACHS Hyperlipidemia/hypertension Continue home medications DVT prophylaxis: On Eliquis.
[2023-07-17] MEDS: MAGNESIUM OXIDE 400 MG TAB PO SCH (16:00)
[2023-07-17] MEDS: ROFLUMILAST 500 MCG TABLET PO SCH (18:18)
[2023-07-17] MEDS: FUROSEMIDE 40 MG TABLET PO SCH (18:19)
[2023-07-17] MEDS: NA CHLORIDE 0.9% 1,000 ML IV SCH (18:19)
[2023-07-17] MEDS: ROPINIROLE HCL 1 MG TAB PO SCH (21:35)
[2023-07-17] MEDS: ATORVASTATIN 20 MG TAB PO SCH (21:35)
[2023-07-18] MEDS: METHYLPREDNISOLONE 40 MG INJ IV SCH ×2 (01:27→10:14)
[2023-07-18 03:04] LABS: Absolute Lymphocytes (CBC) 0.5 K/uL (0.7-4.9); Hematocrit 36.2 % (36.0-45.0); Lymphocytes % 10.8 % (15.3-44.8); MCV 85.8 fL (80-100); Platelets 183 thou/uL (152-406); RBC Red Blood Cell Count 4.21 M/uL (3.86-4.86)
[2023-07-18 03:19] LABS: Potassium 4.2 mEq/L (3.5-5.1)
[2023-07-18 06:11] LABS: Specific Gravity 1.006 (1.005-1.030); Urine Bacteria None Seen /HPF (<20); Urine Bilirubin NEGATIVE (Negative); Urine Blood Negative (Negative); Urine Clarity Clear (Clear); Urine Color Colorless (Yellow); Urine Glucose 4+ (Negative); Urine Mucus Slight /HPF (None Seen); Urine Protein NEGATIVE (Negative); Urine RBC <5 /HPF (None Seen); Urine Urobilinogen Normal (Normal)
[2023-07-18] MEDS: INSULIN REGULAR (HUMAN) 100 UNIT/ML SQ SCH ×3 (07:30→21:16)
[2023-07-18] MEDS: ARFORMOTEROL TARTRATE 15 MCG/2 ML VIAL.NEB NEB SCH (07:46)
[2023-07-18] MEDS ORDERED: HOME MED 1 EA UNK (Magnesium Oxide [Magnesium] 500 MG Capsule) PO SCH (09:00)
[2023-07-18] MEDS: MAGNESIUM OXIDE 400 MG TAB PO SCH (09:00)
[2023-07-18] MEDS: AZITHROMYCIN IV 500 MG in NA CHLORIDE 0.9% 250 ML IVPB SCH (10:10)
[2023-07-18] MEDS: ROPINIROLE HCL 1 MG TAB PO SCH ×3 (10:12→21:22)
[2023-07-18] MEDS: AMLODIPINE 5 MG TAB PO SCH (10:12)
[2023-07-18] MEDS: FUROSEMIDE 40 MG TABLET PO SCH (10:13)
[2023-07-18] MEDS: APIXABAN 5 MG TABLET PO SCH ×2 (10:13→21:15)
[2023-07-18] MEDS: carvediloL 25 MG TAB PO SCH ×2 (10:13→21:15)
[2023-07-18] MEDS: ROFLUMILAST 500 MCG TABLET PO SCH (10:13)
[2023-07-18] MEDS: OSELTAMIVIR 75 MG CAP PO SCH ×2 (10:13→21:16)
[2023-07-18] MEDS: ASCORBIC ACID 500 MG TABLET PO SCH (10:13)
--- NOTE | 2023-07-18 10:53 | P.PN ---
Subjective Date of Service: 07/18/23 Chief Complaint: SOB Patient is better today. She denies any shortness of breath. No recorded fever. She is eating well. Denies send staff reports patient needs two-person assist for transfers. Physical Examination - Vital Signs Temperature: 97.0 F Blood Pressure: 108/61 Pulse: 74 Respirations: 16 Pulse Ox (%): 98 Assessment And Plan - Plan Influenza A infection Positive for influenza A Clinically improved Continue Tamiflu Supportive management PT consult given generalized weakness Disposition pending PT consult. Acute infective bronchitis On Zithromax Antitussives. COPD exacerbation/acute respiratory failure with hypoxia Continue bronchodilators and steroid Continue antitussives. Chronic persistent atrial fibrillation Continue home medication Rate controlled Continue Eliquis Chronic systolic heart failure History of CHF No CHF exacerbation Stable. Diabetes mellitus type II Insulin sliding scale Accu-Chek ACHS Hyperlipidemia/hypertension Continue home medications DVT prophylaxis: On Eliquis.
[2023-07-18] MEDS: NA CHLORIDE 0.9% 1,000 ML IV SCH (12:00)
--- NOTE | 2023-07-18 12:14 | P.CNS ---
Date of Consult: 07/18/23 Reason for Consult: Possible pneumonia Chief Complaint: SOB History of Present Illness: Patient is 88 years of age has been sick for about 2 weeks complaining of cough productive sputum shortness of breath and appeared in the emergency room feeling better but weak no prior history of pulmonary complaints patient does have CHF A-fib Allergies cephalexin [From Keflex] Allergy (Verified 09/20/21 12:43) Itching/Hives/Rash levofloxacin [From Levaquin] Allergy (Verified 09/20/21 12:43) Itching/Hives/Rash Penicillins Allergy (Verified 09/20/21 12:43) Anaphylaxis vancomycin Allergy (Verified 09/20/21 12:43) Itching/Hives/Rash Home Medications: Amlodipine [Norvasc*] 5 mg PO DAILY 10/03/21 Apixaban [Eliquis] 5 mg PO BID 10/03/21 Ascorbic Acid [C-1000] 1,000 mg PO DAILY 10/03/21 Atorvastatin Calcium [Lipitor*] 20 mg PO BEDTIME 10/03/21 Carvedilol [Coreg] 25 mg PO BID 10/03/21 Digoxin 125 mcg PO M,W,F 10/03/21 Furosemide [Lasix*] 40 mg PO DAILY 10/03/21 Gabapentin 300 mg PO DAILY 10/03/21 Magnesium Oxide [Magnesium] 500 mg PO DAILY 10/03/21 Meclizine HCl 25 mg PO DAILY PRN 10/03/21 Omeprazole [Prilosec] 40 mg PO DAILY 10/03/21 Ropinirole HCl 2 mg PO TID 10/03/21 Empagliflozin [Jardiance] 10 mg PO DAILY 10/19/21 cloNIDine HCL [Clonidine HCl] 0.1 mg PO PRN PRN 10/19/21 Albuterol Neb [Proventil 0.083% Neb Soln] 2.5 mg NEB [id number] PRN #60 amp 10/29/21 Alogliptin Benzoate [Nesina] 25 mg PO BEDTIME #30 tablet 10/29/21 Amox/Clavulanate [Augmentin 875-125 Tab] 1 each PO BID #14 tab 10/29/21 Apixaban [Eliquis] 5 mg PO BID #60 tablet 10/29/21 Arformoterol Tartrate [Brovana] 15 mcg NEB BIDRESP #60 vial.neb 04/23/22 Benzonatate [Tessalon Perle*] 100 mg PO TID PRN #30 cap 10/29/21 Furosemide [Lasix*] 40 mg PO DAILY #30 tab 10/29/21 Insulin Glargine,Hum.rec.anlog [Basaglar Kwikpen U-100] 10 unit SQ BID #2 10/29/21 Jules [Jules*] 1 pkt PO BID #60 powd.pack 10/29/21 Linezolid [Zyvox] 600 mg PO BID #14 tab 10/29/21 Pantoprazole [Protonix Tab*] 40 mg PO DAILY #30 tab 10/29/21 Roflumilast [Daliresp*] 500 mcg PO DAILY #30 tablet 10/29/21 Spironolactone [Aldactone*] 25 mg PO DAILY #30 tab 10/29/21 predniSONE [Prednisone*] 20 mg PO BID #11 tab 10/29/21 - Past Medical/Surgical History Diabetic: Yes -: CHF-Unkown -: DMII-insulin dependent -: HTN -: HLD -: Afib on chronic anticoagulation -: right knee joint replacement 2010 -: appendix removal 1955 -: gallbladder removal -: TLH-total laproscopic hysterectomy -: bilateral shoulder surgery Psychosocial/ Personal History: Lives at home with her daughter/grandaughter - Family History Father Medical History: Heart disease Brother Medical History: Cancer Sister Medical History: Cancer - Social History Alcohol use: No CD- Drugs: No Caffeine use: Yes Place of Residence: Home Review of Systems 10-point ROS is otherwise unremarkable General: Weakness Respiratory: Shortness of Breath Physical Examination Temp Pulse Resp BP Pulse Ox 97.0 F 74 16 108/61 98 07/18/23 10:52 07/18/23 10:52 07/18/23 10:52 07/18/23 10:52 07/18/23 10:52 General: Alert, In no apparent distress, Oriented x3 Respiratory: Clear to auscultation bilaterally Cardiovascular: No edema, Regular rate/rhythm, Normal S1 S2 Gastrointestinal: Normal bowel sounds, Soft and benign Musculoskeletal: No clubbing, No swelling Integumentary: No rashes, No breakdown - Problems (1) Influenzal pneumonia Current Visit: Yes Status: Acute Plan: Patient is 88 years of age admitted with progressive dyspnea and cough for the past 2-week suspect is influenza pneumonia currently oxygenation is satisfactory patient is on 2 L will check room air blood pressure is stable no fever patient does have A-fib see IV fluids DC steroids I am not sure why patient is on dilators also discontinued the DC Zithromax ambulate cleared for discharge
--- NOTE | 2023-07-18 17:38 | EKG ---
Test Date: 2023-07-16 Test Time: 17:34:43 Mba Intern: GIOVANNA MEASUREMENT RESULTS: Intervals: Rate: 104 [place]: QRSD: 94 QT: 312 QTc: 410 [place]: P: OK: QRS: -28 T: 20 INTERPRETIVE STATEMENTS: Atrial fibrillation Abnormal ECG Compared to ECG 09/20/2022 18:20:19 Left-axis deviation no longer present Electronically Signed On 07-18-23 17:34:38 MEDICAL ADMINISTRATIVE TECHNICIAN by Christian Lopez
[2023-07-18] MEDS: ATORVASTATIN 20 MG TAB PO SCH (21:16)
[2023-07-19] MEDS: INSULIN REGULAR (HUMAN) 100 UNIT/ML SQ SCH ×4 (07:30→21:44)
[2023-07-19] MEDS: MAGNESIUM OXIDE 400 MG TAB PO SCH (09:00)
[2023-07-19] MEDS: ROPINIROLE HCL 1 MG TAB PO SCH ×3 (10:37→21:44)
[2023-07-19] MEDS: ASCORBIC ACID 500 MG TABLET PO SCH (10:37)
[2023-07-19] MEDS: FUROSEMIDE 40 MG TABLET PO SCH (10:37)
[2023-07-19] MEDS: carvediloL 25 MG TAB PO SCH ×2 (10:37→21:43)
[2023-07-19] MEDS: APIXABAN 5 MG TABLET PO SCH ×2 (10:37→21:43)
[2023-07-19] MEDS: OSELTAMIVIR 75 MG CAP PO SCH ×2 (10:38→21:44)
[2023-07-19] MEDS: AMLODIPINE 5 MG TAB PO SCH (10:38)
--- NOTE | 2023-07-19 12:01 | P.PN ---
Subjective Date of Service: 07/19/23 Chief Complaint: SOB Patient denies any complaint except fatigue. She denies any shortness of breath. No recorded fever. Physical Examination - Vital Signs Temperature: 97.2 F Blood Pressure: 120/67 Pulse: 116 Respirations: 20 Pulse Ox (%): 93 - Physical Exam General: Alert, In no apparent distress, Oriented x3 HEENT: Mucous membr. 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 Acute infective bronchitis Continue Zithromax. Patient to complete 5 days of treatment Antitussives. COPD exacerbation/acute respiratory failure with hypoxia Continue bronchodilators and steroid Chronic persistent atrial fibrillation Continue home medication Rate controlled Continue Eliquis Chronic systolic heart failure History of CHF No CHF exacerbation Stable. Diabetes mellitus type II Insulin sliding scale Accu-Chek ACHS Hyperlipidemia/hypertension Continue home medications DVT prophylaxis: On Eliquis.
[2023-07-19] MEDS: ACETAMINOPHEN 325 MG TABLET PO PRN (13:48)
[2023-07-19] MEDS: ATORVASTATIN 20 MG TAB PO SCH (21:44)
[2023-07-20 03:24] LABS: Absolute Lymphocytes (CBC) 0.5 K/uL (0.7-4.9); Hematocrit 38.6 % (36.0-45.0); MCV 85.9 fL (80-100); MPV 9.4 fL (7.6-11.3); Platelets 245 thou/uL (152-406); RBC Red Blood Cell Count 4.49 M/uL (3.86-4.86)
[2023-07-20 03:42] LABS: Potassium 3.9 mEq/L (3.5-5.1)
[2023-07-20] MEDS: INSULIN REGULAR (HUMAN) 100 UNIT/ML SQ SCH ×4 (09:04→21:34)
[2023-07-20] MEDS: ROPINIROLE HCL 1 MG TAB PO SCH ×3 (09:05→20:46)
[2023-07-20] MEDS: APIXABAN 5 MG TABLET PO SCH ×2 (09:05→20:48)
[2023-07-20] MEDS: OSELTAMIVIR 75 MG CAP PO SCH ×2 (09:05→20:48)
[2023-07-20] MEDS: ASCORBIC ACID 500 MG TABLET PO SCH (09:05)
[2023-07-20] MEDS: FUROSEMIDE 40 MG TABLET PO SCH (09:07)
[2023-07-20] MEDS: carvediloL 25 MG TAB PO SCH ×2 (09:07→20:48)
[2023-07-20] MEDS: AMLODIPINE 5 MG TAB PO SCH (09:07)
[2023-07-20] MEDS: MAGNESIUM OXIDE 400 MG TAB PO SCH (09:10)
[2023-07-20] MEDS: ACETAMINOPHEN 325 MG TABLET PO PRN (10:31)
[2023-07-20] MEDS: GUAIFENESIN/DM 5 ML UCUP PO PRN (10:31)
[2023-07-20] MEDS: ARFORMOTEROL TARTRATE 15 MCG/2 ML VIAL.NEB NEB SCH ×2 (10:42→19:43)
--- NOTE | 2023-07-20 10:45 | P.PN ---
Subjective Date of Service: 07/20/23 Chief Complaint: SOB Patient still is very weak complaining of dyspnea and wheezing Review of Systems General: Weakness Respiratory: Cough, Shortness of Breath Physical Examination - Vital Signs Temperature: 97.7 F Blood Pressure: 103/72 Pulse: 109 Respirations: 15 Pulse Ox (%): 93 - Physical Exam General: Alert, Oriented x3, Mild distress Respiratory: Expiratory wheezes Cardiovascular: Regular rate/rhythm, Normal S1 S2 Assessment And Plan - Current Problems (Diagnosis) (1) Influenzal pneumonia Current Visit: Yes Status: Acute Plan: Patient complaining of shortness of breath and wheezing all of steroids and bronchodilators chest x-ray ordered patient continues to feel very weak pulm air sat is apparently 97% blood pressure is on the lower side will hold steroids and amlodipine for now continue with Coreg
--- NOTE | 2023-07-20 11:57 | RAD REPORT ---
EXAM DESCRIPTION: RAD - Chest Single View - 07/20/2023 11:17 am CLINICAL HISTORY: Pneumonia COMPARISON: Chest Single View dated 07/16/2023; Chest Single View dated 09/20/2022; Chest Single View d ated 10/28/2021; Chest Single View dated 10/23/2021 FINDINGS: Lines: None. Lungs: No evidence of edema or pneumonia. Pleural: No significant pleural effusions or pneumothorax. Cardiac: Cardiomegaly. Mitral annular calcifications. Mediastinum: Within normal limits. Bones: No acute fractures. Other: None IMPRESSION: No acute cardiopulmonary disease.
[2023-07-20] MEDS: METHYLPREDNISOLONE 40 MG INJ IV SCH ×2 (12:46→20:49)
--- NOTE | 2023-07-20 13:23 | P.PN ---
Subjective Date of Service: 07/20/23 Chief Complaint: SOB Patient is complaining of pain in the right maxillary area. She reports an episode of shortness of breath with associated wheezing this morning. No recorded fever. Physical Examination - Vital Signs Temperature: 97.9 F Blood Pressure: 95/54 Pulse: 89 Respirations: 16 Pulse Ox (%): 97 - Physical Exam General: Alert, Oriented x3, Mild distress HEENT: Mucous membr. moist/pink, Other (Tenderness in the right maxillary area), Sclerae nonicteric Neck: JVD not distended Respiratory: Clear to auscultation bilaterally, Normal air movement Cardiovascular: No edema, Regular rate/rhythm, Normal S1 S2 Gastrointestinal: Soft and benign, Non-distended, No tenderness Musculoskeletal: No swelling Integumentary: No rashes, No cyanosis Neurological: Normal speech, Normal strength at 5/5 x4 extr Assessment And Plan - Plan Influenza A infection/acute sinusitis Positive for influenza A Continue Tamiflu Supportive management. 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 COPD exacerbation/acute respiratory failure with hypoxia Continue bronchodilators and steroid Pulmonary Dr. Martinez input appreciated. Antibiotics discontinued per pulmonary. Chronic persistent atrial fibrillation Continue home medication Rate controlled Continue Eliquis Chronic systolic heart failure No CHF exacerbation Stable. Diabetes mellitus type II Insulin sliding scale Accu-Chek ACHS Hyperlipidemia/hypertension Continue home medications DVT prophylaxis: On Eliquis.
--- NOTE | 2023-07-20 14:21 | RAD REPORT ---
EXAM DESCRIPTION: CT - [id number] CLINICAL HISTORY: Tenderness right maxillary area Facial pain and swelling COMPARISON: <Comparisons> TECHNIQUE: Axial 2 mm thick images of the face were obtained with sagittal and coronal reconstructio n images. All CT scans are performed using dose optimization technique as appropriate and may include automated exposure control or mA/KV adjustment according to patient size. FINDINGS: No acute facial bone fracture is seen.The mandible is intact. The globes and orbital contents are grossly unremarkable.Air-fluid levels and mucosal thickening seen in both maxillary antra as well as the ethmoid air cells, more significant on the right. IMPRESSION: Bilateral maxillary sinusitis, greater on the right noted. Sinus opacification also seen involving the ethmoid air cells.
--- NOTE | 2023-07-20 17:16 | CON ---
History Of Present Illness: This is an 88-year-old female with significant past medical history of h ypertension, hyperlipidemia, diabetes mellitus, congestive heart failure, atrial fibrillation. The p atient coming in with flu and bronchitis. Continued to have some cough and congestion. The patient was admitted to the emergency room with COPD. Denies any problems with the medication at this time. Past Medical History: As per HPI. Social History: Nonsmoker, nondrinker. Medications: Steroid and Tamiflu. See MAR for other medications. Allergies: CEPHALEXIN, LEVAQUIN, PENICILLIN, VANCOMYCIN. Review of Systems: A 10-point review was performed. Physical Examination: General: This is an 88-year-old female, lying in bed, not in any acute cardiopulmonary distress, cur rently on 2 L nasal cannula. Vital Signs: Temperature 97.9, pulse 89, respirations 16, blood pressure 95/54. HEENT: Unremarkable. Right-sided facial pain was elicited on pressure. Neck: Supple. Lungs: Basal crackles. Heart: S1, S2. Regular. Abdomen: Soft, nontender. Bowel sounds present. Extremities: No edema. Laboratory Data: Shows WBC of 7.6, hemoglobin 12.9, platelets 245. Chemistry shows a BUN of 23, cre atinine 0.7. Nasal swab for flu positive for flu A. Chest x-ray done earlier today shows no acute p ulmonary disease. Assessment And Plan: An 88-year-old female coming in with influenza A infection and bronchitis, was given Zithromax. Currently now on the patient Tamiflu and prednisone and steroids with significant h istory of chronic obstructive pulmonary disease, chronic persistent atrial fibrillation, chronic syst olic heart failure, diabetes mellitus, hyperlipidemia. Continue current treatment and pulmonary hygi romel. Monitor signs of infection with fever and WBC trend. No other recommendation at this time. Thank you Dr. Lozano for consult. NF/MODL Voice ID: [id number] Report ID: [id number]
[2023-07-20] MEDS: ALBUTEROL 2.5 MG/3 ML NEB SOL NEB PRN (19:43)
[2023-07-20] MEDS: ATORVASTATIN 20 MG TAB PO SCH (20:48)
[2023-07-21 03:37] LABS: Absolute Lymphocytes (CBC) 0.4 K/uL (0.7-4.9); Lymphocytes % 6.3 % (15.3-44.8); MCV 85.8 fL (80-100); MPV 9.1 fL (7.6-11.3); Platelets 255 thou/uL (152-406); RBC Red Blood Cell Count 4.66 M/uL (3.86-4.86)
[2023-07-21 03:56] LABS: Magnesium 2.1 mg/dL (1.6-2.4); Phosphorus 3.6 mg/dL (2.5-4.9); Potassium 4.4 mEq/L (3.5-5.1)
[2023-07-21 04:17] LABS: Blood Morphology Comment NOT SEEN (NOT SEEN); Platelet Estimate ADEQ
[2023-07-21] MEDS: ALBUTEROL 2.5 MG/3 ML NEB SOL NEB PRN ×2 (07:54→19:13)
[2023-07-21] MEDS: ARFORMOTEROL TARTRATE 15 MCG/2 ML VIAL.NEB NEB SCH ×2 (07:54→19:13)
[2023-07-21] MEDS: OSELTAMIVIR 75 MG CAP PO SCH ×2 (08:35→21:56)
[2023-07-21] MEDS: APIXABAN 5 MG TABLET PO SCH ×2 (08:36→21:57)
[2023-07-21] MEDS: GUAIFENESIN/DM 5 ML UCUP PO PRN (08:36)
[2023-07-21] MEDS: METHYLPREDNISOLONE 40 MG INJ IV SCH (08:36)
[2023-07-21] MEDS: ROPINIROLE HCL 1 MG TAB PO SCH ×3 (08:36→21:56)
[2023-07-21] MEDS: carvediloL 25 MG TAB PO SCH ×2 (08:36→21:56)
[2023-07-21] MEDS: ASCORBIC ACID 500 MG TABLET PO SCH (08:37)
[2023-07-21] MEDS: INSULIN REGULAR (HUMAN) 100 UNIT/ML SQ SCH ×4 (08:37→21:57)
[2023-07-21] MEDS: MAGNESIUM OXIDE 400 MG TAB PO SCH (08:42)
--- NOTE | 2023-07-21 10:11 | RAD REPORT ---
EXAM DESCRIPTION: RAD - Chest Single View - 07/21/2023 6:23 am CLINICAL HISTORY: Pneumonia Chest pain. COMPARISON: <Comparisons> FINDINGS: Portable technique limits examination quality. Mild interstitial pulmonary edema suspected. The heart is mildly enlarged in size. No displaced fract ures.Advanced degenerative change left shoulder. IMPRESSION: Mild CHF.
--- NOTE | 2023-07-21 10:30 | P.PN ---
Subjective Date of Service: 07/21/23 Chief Complaint: Hartness of breath influenza pneumonia Patient is improving wheezing has improved to ambulate Review of Systems General: Weakness Respiratory: Shortness of Breath Physical Examination - Vital Signs Temperature: 97.1 F Blood Pressure: 136/83 Pulse: 89 Respirations: 17 Pulse Ox (%): 94 - Physical Exam General: Alert, In no apparent distress, Oriented x3 Respiratory: Clear to auscultation bilaterally, Diminished Assessment And Plan - Current Problems (Diagnosis) (1) Influenzal pneumonia Current Visit: Yes Status: Acute Plan: Patient is doing better wheezing has improved changed to p.o. prednisone continue with nebulized bronchodilators physical therapy signs satisfactory discharge planning is currently off oxygen saturations satisfactory
[2023-07-21] MEDS: AZITHROMYCIN 250 MG TAB PO SCH (12:12)
--- NOTE | 2023-07-21 12:15 | P.PN ---
Subjective Date of Service: 07/21/23 Chief Complaint: Hartness of breath influenza pneumonia Patient states the pain in her maxillary area is better today No recorded fever She is tolerating diet Physical Examination - Vital Signs Temperature: 97.1 F Blood Pressure: 136/83 Pulse: 89 Respirations: 17 Pulse Ox (%): 94 Assessment And Plan - Plan Influenza A infection/acute sinusitis Positive for influenza A Continue Tamiflu Supportive management. Zithromax for acute sinusitis Infectious disease report appreciated. Continue admissions dean rehab placement given acute generalized weakness. COPD exacerbation/acute respiratory failure with hypoxia Continue bronchodilators and steroid Pulmonary Dr. Martinez input appreciated. Chronic persistent atrial fibrillation Continue home medication Rate controlled Continue Eliquis Chronic systolic heart failure No CHF exacerbation Stable. Diabetes mellitus type II Insulin sliding scale Accu-Chek ACHS Hyperlipidemia/hypertension Continue home medications DVT prophylaxis: On Eliquis.
[2023-07-21] MEDS: predniSONE 20 MG TAB PO SCH (21:56)
[2023-07-21] MEDS: ATORVASTATIN 20 MG TAB PO SCH (21:57)
[2023-07-21] MEDS: DOCUSATE NA 100 MG CAP PO SCH (21:57)
[2023-07-22] MEDS: ALBUTEROL 2.5 MG/3 ML NEB SOL NEB PRN ×2 (07:29→18:19)
[2023-07-22] MEDS: ARFORMOTEROL TARTRATE 15 MCG/2 ML VIAL.NEB NEB SCH ×2 (07:29→18:19)
[2023-07-22] MEDS: predniSONE 20 MG TAB PO SCH ×2 (09:43→21:21)
[2023-07-22] MEDS: INSULIN REGULAR (HUMAN) 100 UNIT/ML SQ SCH ×4 (09:43→21:19)
[2023-07-22] MEDS: DOCUSATE NA 100 MG CAP PO SCH ×2 (09:43→21:21)
[2023-07-22] MEDS: AZITHROMYCIN 250 MG TAB PO SCH (09:43)
[2023-07-22] MEDS: APIXABAN 5 MG TABLET PO SCH ×2 (09:44→21:21)
[2023-07-22] MEDS: carvediloL 25 MG TAB PO SCH ×2 (09:44→21:21)
[2023-07-22] MEDS: INSULIN GLARGINE 100 UNIT/ML SQ SCH ×2 (09:44→21:20)
[2023-07-22] MEDS: MAGNESIUM OXIDE 400 MG TAB PO SCH (09:44)
[2023-07-22] MEDS: ROPINIROLE HCL 1 MG TAB PO SCH ×3 (09:44→21:20)
[2023-07-22] MEDS: ASCORBIC ACID 500 MG TABLET PO SCH (09:44)
[2023-07-22] MEDS ORDERED: MAGNESIUM HYDROXIDE 8% 30 ML PO ONE (11:44)
[2023-07-22] MEDS: POLYETHYL GLY 3350 17 GM/DOSE PO SCH ×2 (12:29→21:20)
[2023-07-22] MEDS: GABAPENTIN 300 MG CAP PO SCH ×2 (12:29→21:20)
--- NOTE | 2023-07-22 13:08 | P.PN ---
Subjective Date of Service: 07/22/23 Chief Complaint: Hartness of breath influenza pneumonia Patient is complaining of constipation and unable to clear secretion from her throat No recorded fever She is hyperglycemic. Physical Examination - Vital Signs Temperature: 97.6 F Blood Pressure: 99/51 Pulse: 90 Respirations: 18 Pulse Ox (%): 94 - Physical Exam General: Alert, In no apparent distress, Oriented x3 HEENT: Mucous membr. moist/pink Neck: JVD not distended Respiratory: Clear to auscultation bilaterally, Normal air movement Cardiovascular: Normal S1 S2, Irregular heart rate/rhythm Gastrointestinal: Soft and benign, Non-distended Musculoskeletal: No swelling Integumentary: No rashes, No cyanosis Neurological: Normal strength at 5/5 x4 extr Assessment And Plan - Plan Influenza A infection/acute sinusitis Positive for influenza A Patient completed Tamiflu Supportive management. Zithromax for acute sinusitis Infectious disease input appreciated. 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 COPD exacerbation/acute respiratory failure with hypoxia Continue bronchodilators and steroid Pulmonary Dr. Martinez input appreciated. Chronic persistent atrial fibrillation Continue home medication Rate controlled Continue Eliquis Chronic systolic heart failure No CHF exacerbation Stable. Diabetes mellitus type II Insulin sliding scale Accu-Chek ACHS Hyperlipidemia/hypertension Continue home medications Functional constipation Stool softeners and laxatives. Decreased mobility Continue PT Patient slated for skilled rehab placement. DVT prophylaxis: On Eliquis.
[2023-07-22] MEDS ORDERED: INSULIN GLARGINE 100 UNIT/ML SQ SCH (21:00)
[2023-07-22] MEDS: ATORVASTATIN 20 MG TAB PO SCH (21:20)
[2023-07-23 07:52] LABS: Absolute Lymphocytes (CBC) 0.4 K/uL (0.7-4.9); Hematocrit 41.8 % (36.0-45.0); Lymphocytes % 6.5 % (15.3-44.8); MCV 86.3 fL (80-100); MPV 8.7 fL (7.6-11.3); Platelets 317 thou/uL (152-406); RBC Red Blood Cell Count 4.85 M/uL (3.86-4.86)
[2023-07-23] MEDS: ARFORMOTEROL TARTRATE 15 MCG/2 ML VIAL.NEB NEB SCH (07:55)
[2023-07-23 08:13] LABS: Potassium 5.1 mEq/L (3.5-5.1)
[2023-07-23] MEDS: INSULIN REGULAR (HUMAN) 100 UNIT/ML SQ SCH (08:13)
[2023-07-23] MEDS: MAGNESIUM OXIDE 400 MG TAB PO SCH (08:14)
[2023-07-23] MEDS: ROPINIROLE HCL 1 MG TAB PO SCH (08:14)
[2023-07-23] MEDS: APIXABAN 5 MG TABLET PO SCH (08:14)
[2023-07-23] MEDS: GABAPENTIN 300 MG CAP PO SCH (08:14)
[2023-07-23] MEDS: INSULIN GLARGINE 100 UNIT/ML SQ SCH (08:14)
[2023-07-23] MEDS: AZITHROMYCIN 250 MG TAB PO SCH (08:15)
[2023-07-23] MEDS: ASCORBIC ACID 500 MG TABLET PO SCH (08:15)
[2023-07-23] MEDS: carvediloL 25 MG TAB PO SCH (08:15)
[2023-07-23] MEDS: DOCUSATE NA 100 MG CAP PO SCH (08:16)
[2023-07-23] MEDS: predniSONE 20 MG TAB PO SCH (08:16)
[2023-07-23] MEDS: POLYETHYL GLY 3350 17 GM/DOSE PO SCH (08:16)
[2023-07-23] MEDS ORDERED: ALOGLIPTIN BENZOATE 12.5 MG TABLET PO SCH (09:00)
[2023-07-23] MEDS ORDERED: PANTOPRAZOLE 40MG TABLET PO SCH (09:00)
[2023-07-23 10:20] VITALS: O2SAT 98
[2023-07-23 11:18] LABS: SARS-CoV-2 Antigen Rapid Res Negative (Negative)
--- NOTE | 2023-07-23 12:26 | P.DS ---
Admission Date: 07/16/23 Discharge Date: 07/23/23 Disposition: ROUTINE DISCHARGE Discharge Condition: FAIR Reason for Admission: Shortness of breath influenza pneumonia Brief History of Present Illness: 88-year-old female with past medical history of hypertension, hyperlipidemia, diabetes, CHF, atrial fibrillation on Eliquis was seen at the urgent care for shortness of breath and cough which has been progressively getting worse and was transferred over here for further management. Patient reported nausea and multiple episodes of vomiting. She denied any chest pain. No fever or chills. Denies any dysuria. Patient reported cough with mucoid expectoration associated with wheezing. Patient was also reportedly 90% on room air. Patient was assessed in the ER, found to be flu positive. She was admitted for COPD exacerbation. Hospital Course: Patient admitted to the medical floor and the following medical problems addressed: Influenza A infection/acute sinusitis Positive for influenza A Patient completed Tamiflu Treated with supportive measures She was on Zithromax for acute sinusitis Infectious disease input appreciated. 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 COPD exacerbation/acute respiratory failure with hypoxia Treated with continue bronchodilators and steroid. She was on steroid for severa l days. Pulmonary Dr. Martinez input appreciated. Chronic persistent atrial fibrillation Continued home medication Rate controlled Continued Eliquis Chronic systolic heart failure No CHF exacerbation Stable. Diabetes mellitus type II Managed with insulin sliding scale and home dose Lantus insulin. Hyperlipidemia/hypertension Continued home medications Functional constipation Placed on MiraLAX and Colace. Decreased mobility She received PT She has been accepted to skilled rehab at [facility] [place]. Vital Signs/Physical Exam: Temp Pulse Resp BP Pulse Ox 97.1 F 71 17 106/64 98 07/23/23 07:10 07/23/23 07:10 07/23/23 07:10 07/23/23 07:10 07/23/23 07:10 General: Alert, In no apparent distress, Oriented x3 HEENT: Mucous membr. moist/pink Neck: Supple, JVD not distended Respiratory: Clear to auscultation bilaterally, Normal air movement Cardiovascular: No edema, Regular rate/rhythm, Normal S1 S2 Gastrointestinal: Soft and benign, Non-distended Musculoskeletal: No swelling, No tenderness Integumentary: No rashes Neurological: Other (No focal motor deficit) Laboratory Data at Discharge: WBC 5.80 thou/uL (4.3-10.9) 07/23/23 07:32 Hgb 13.7 g/dL (12.0-15.0) 07/23/23 07:32 Hct 41.8 % (36.0-45.0) 07/23/23 07:32 Plt Count 317 thou/uL (152-406) 07/23/23 07:32 PT 12.6 SECONDS (9.5-12.5) H 07/16/23 17:45 INR 1.15 07/16/23 17:45 Sodium 133 mEq/L (136-145) L 07/23/23 07:32 Potassium 5.1 mEq/L (3.5-5.1) 07/23/23 07:32 BUN 37 mg/dL (7-18) H 07/23/23 07:32 Creatinine 0.64 mg/dL (0.55-1.02) 07/23/23 07:32 Glucose 258 mg/dL (74-106) H 07/23/23 07:32 Phosphorus 3.6 mg/dL (2.5-4.9) 07/21/23 03:04 Magnesium 2.1 mg/dL (1.6-2.4) 07/21/23 03:04 Total Bilirubin 0.6 mg/dL (0.2-1.0) 07/17/23 05:03 AST 12 U/L (15-37) L 07/17/23 05:03 ALT 17 U/L (13-56) 07/17/23 05:03 Alkaline Phosphatase 108 U/L (45-117) 07/17/23 05:03 Home Medications: Apixaban [Eliquis] 5 mg PO BID 10/03/21 Ascorbic Acid [C-1000] 1,000 mg PO DAILY 10/03/21 Atorvastatin Calcium [Lipitor*] 20 mg PO BEDTIME 10/03/21 Carvedilol [Coreg] 25 mg PO BID 10/03/21 Digoxin 125 mcg PO M,W,F 10/03/21 Furosemide [Lasix*] 40 mg PO DAILY 10/03/21 Gabapentin 300 mg PO DAILY 10/03/21 Magnesium Oxide [Magnesium] 500 mg PO DAILY 10/03/21 Ropinirole HCl 2 mg PO TID 10/03/21 Empagliflozin [Jardiance] 25 mg PO DAILY 10/19/21 Albuterol Neb [Proventil 0.083% Neb Soln] 2.5 mg NEB [id number] PRN #60 amp 10/29/21 Arformoterol Tartrate [Brovana] 15 mcg NEB BIDRESP #60 vial.neb 10/29/21 Insulin Glargine,Hum.rec.anlog [Basaglar Kwikpen U-100] 10 unit SQ BID #2 10/29/21 Jules [Jules*] 1 pkt PO BID #60 powd.pack 10/29/21 Pantoprazole [Protonix Tab*] 40 mg PO DAILY #30 tab 10/29/21 Roflumilast [Daliresp*] 500 mcg PO DAILY #30 tablet 10/29/21 Spironolactone [Aldactone*] 25 mg PO DAILY #30 tab 10/29/21 Sitagliptin Phosphate [Januvia] 100 mg PO DAILY 07/21/23 Docusate [Colace Cap*] 100 mg PO BID cap 07/23/23 Guaif/Dm [Robitussin Dm*] 5 ml PO Q6H PRN 07/23/23 Insulin -Regular Human [Novolin -R*] See Protocol SQ ACHS ml 07/23/23 Polyethyl Gly 3350 [Glycolax*] 17 gm PO BID udbot 07/23/23 Diet: ADA Activity: Fall precautions Followup: [facility] [Primary Care Provider] - (Within 2 weeks)
[2023-07-23 16:34] VITALS: BP 107/63; TEMP 97
== END 2023-07-23 16:38 | DRG 193 ==
LOC: ER 17:16 → ERHOLD 19:01 → 2ND 19:56
PROVIDERS: ADMIT Family Medicine; ATTEND Internal Medicine
DX: J09.X1 Influenza due to identified novel influenza A virus with pneumonia (principal); J96.01 Acute respiratory failure with hypoxia; J44.1 Chronic obstructive pulmonary disease with (acute) exacerbation; E87.1 Hypo-osmolality and hyponatremia; I50.22 Chronic systolic (congestive) heart failure; I48.19 Other persistent atrial fibrillation; J44.0 Chronic obstructive pulmonary disease with (acute) lower respiratory infection; I11.0 Hypertensive heart disease with heart failure; E78.5 Hyperlipidemia, unspecified; K59.04 Chronic idiopathic constipation; E11.9 Type 2 diabetes mellitus without complications; J20.9 Acute bronchitis, unspecified; Z88.1 Allergy status to other antibiotic agents; Z88.0 Allergy status to penicillin; Z88.8 Allergy status to other drugs, medicaments and biological substances; Z79.02 Long term (current) use of antithrombotics/antiplatelets; Z11.52 Encounter for screening for COVID-19; Z79.01 Long term (current) use of anticoagulants; Z79.52 Long term (current) use of systemic steroids; Z79.899 Other long term (current) drug therapy; Z96.651 Presence of right artificial knee joint; Z90.710 Acquired absence of both cervix and uterus
CPT/HCPCS: 36415; 70487; 71045; 76377; 80048; 80053; 80076; 81001; 82947; 83735; 83880; 84100; 84484; 85025; 85610; 87804; 87807; 87811; 93005; 94640; 94760; 97110; 97161; 97530; 99285; J1815; J2920; J7030; J7050; J7512; J7605; J7613; Q9967